=== PATIENT | female | born 1990 | race Caucasian/White ===

== ENCOUNTER 2024-08-07 11:03 | Inpatient (IN) | payer OTHER, SELFPAY ==
--- NOTE | ~2024-08-07 | CT_ITS ---
EXAMINATION: CT abdomen pelvis w con DATE: 08/07/2024 13:48 INDICATION: Left lower quadrant abdominal pain and diarrhea TECHNIQUE: Computed tomography (CT) of the abdomen and pelvis was performed with 100 mL Omnipaque-350 intravenous contrast. Automated exposure control and iterative reconstruction technique were employe d. The dose-length product was 211.48 mGy-cm. COMPARISON: None FINDINGS: Lung bases are clear. Heart size is normal. No pericardial or pleural effusion. Liver, gallbladder, s pleen, pancreas, bilateral adrenal glands and kidneys are normal. Small bowel and appendix are normal . There is prominent focal wall thickening at the proximal sigmoid colon with surrounding inflammator y stranding. There is adjacent prominent enhancement surrounding a few small loculated foci of extral uminal gas which could be related to perforated diverticulitis. The amount of enhancing tissue is gre ater than expected suggesting this could be either acute on chronic or related to malignancy. No absc ess or more remote free intraperitoneal gas. Decompressed bladder is normal. T-shaped IUD in expected position within the anteverted uterus. 2.5 cm left adnexal cyst/follicle. Trace amount of either carolina ctive or physiologic free fluid in the cul-de-sac. Bones are unremarkable. IMPRESSION: 1. Prominent inflammatory stranding surrounding several foci of extraluminal gas with surrounding enh ancing soft tissue associated with a short segment of prominent wall thickening at the proximal sigmo id colon statistically most likely to represent perforated diverticulitis although the amount of surr ounding enhancing soft tissue greater than expected suggests this could be acute on chronic. Differen tial would also include malignancy with secondary perforation. Consider follow-up colonoscopy for fur ther evaluation when clinically improved. 2. T-shaped IUD in expected position within the anteverted uterus. Reviewed, dictated and finalized at location B. IMPRESSION: 1. Prominent inflammatory stranding surrounding several foci of extraluminal ga s with surrounding enhancing soft tissue associated with a short segment of pro minent wall thickening at the proximal sigmoid colon statistically most likely to represent perforated diverticulitis although the amount of surrounding enhan cing soft tissue greater than expected suggests this could be acute on chronic. Differential would also include malignancy with secondary perforation. Conside r follow-up colonoscopy for further evaluation when clinically improved. 2. T-shaped IUD in expected position within the anteverted uterus.
--- NOTE | ~2024-08-07 | CT_ITS ---
EXAMINATION: CT abdomen pelvis w con DATE: 08/11/2024 09:54 INDICATION: Perforated diverticulitis. Inflammatory mass. TECHNIQUE: Computed tomography (CT) of the abdomen and pelvis was performed with 100 mL Omnipaque-350 intravenous contrast. Automated exposure control and iterative reconstruction technique were employe d. The dose-length product was 194.63 mGy-cm. COMPARISON: 08/07/2024 FINDINGS: Lung bases are clear. Heart size is normal. No pericardial or pleural effusion. There are couple calc ified hepatic nodules consistent with old granulomatous disease. Gallbladder, spleen, pancreas, bilat eral adrenal glands and kidneys are normal. No significant change in short segment of wall thickening at the proximal sigmoid colon with inflammatory stranding and enhancing soft tissue surrounding a fe w small foci of extraluminal gas in the surrounding fat. Remainder of the bowels including the append ix are normal. No obstruction. No loculated fluid collections to suggest abscess. Increased size of a previously 2.5 cm 3. T-shaped IUD in expected position., currently 3.8 cm left adnexal cyst/follicle. T-shaped IUD in e xpected position within the anteverted uterus. Bladder and right adnexa are unremarkable. No free int raperitoneal gas or fluid. No pathologically enlarged abdominal or pelvic lymphadenopathy. Bones are unremarkable. IMPRESSION: 1. No significant change in a few foci of extra luminal gas within an inflammatory mass at the periph michael of a short segment of focal wall thickening at the proximal sigmoid colon for which differential remains perforated diverticulitis versus malignancy. No abscess. 2. Interval increase in size of a previous a 2.5 cm, currently 3.8 cm left adnexal cyst/follicle. Reviewed, dictated and finalized at location B. IMPRESSION: 1. No significant change in a few foci of extra luminal gas within an inflammat ory mass at the periphery of a short segment of focal wall thickening at the pr oximal sigmoid colon for which differential remains perforated diverticulitis v ersus malignancy. No abscess. 2. Interval increase in size of a previous a 2.5 cm, currently 3.8 cm left adne xal cyst/follicle.
[2024-08-07 11:12] VITALS: BP 113/67; PULSE 125; RESP 18; TEMP 36.6; O2SAT 98
[2024-08-07 12:24] VITALS: BP 117/74; PULSE 105; RESP 16; O2SAT 99
--- NOTE | 2024-08-07 12:54 | ED.ABDPAIN ---
HPI - Abdominal Pain General Chief Complaint: Abdominal Pain Stated Complaint: abd pain Time Seen by Provider: 08/07/24 12:19 History of Present Illness HPI narrative: 33-year-old female presenting with abdominal pain. States that for the last day and half she has had left lower quadrant pain associated with nausea and diarrhea. No hematochezia or melena. Also has pain with urination and states that it feels like pressure. She was recently hospitalized for diverticulitis. No fevers or vomiting. Reports mild left flank pain. No vaginal bleeding or discharge. No further complaints. Related Data Home Medications Medication Instructions Recorded Confirmed No Home Medications 08/08/24 08/08/24 Allergies Allergy/AdvReac Type Severity Reaction Status Date / Time No Known Allergies Allergy Verified 08/07/24 11:15 Review of Systems Review of Systems: All systems reviewed & are unremarkable except as noted in HPI and below PMFSH Past Medical History Medical History Anxiety Asthma in childhood, resolved Surgical History Surgical History H/O gynecological procedure Mirena IUD insertion Social History Social History Years smoked: 15 Smoking status: Current every day smoker Tobacco type: cigarettes Alcohol intake: former Substance use: current Substance use type: marijuana Do You Feel Safe in your Home?: Yes Lack of Transportation: No Lack of Food: Never True Current Housing: I Have Housing Concerned About Future Housing: No Difficulty Paying Gas/Electric Bills: No Difficulty Paying for Meds: No Currently Unemployed: No Education: High School Diploma/GED Difficulty w/ Childcare or Family Care: No Occupation/Education: occupation Gender identity (if verbalized by the patient): Female Spiritual care concerns: No Exam Narrative: GENERAL: Nontoxic, no acute distress, pleasant cooperative HEAD: Normocephalic, atraumatic. EYES: PERRLA and EOMI. ENT: Mucous membranes moist. NECK: Supple. CHEST: Clear to auscultation. No respiratory distress. HEART: Regular rate and rhythm ABDOMEN: Soft, + left lower quadrant tenderness without guarding or rebound EXTREMITIES: Normal range of motion. SKIN: Warm, dry, no rash. NEURO: No focal deficits. Alert and oriented x3. PSYCH: Normal mood and affect. Course Vital Signs Vital signs: Vital Signs Temperature 97.8 F 08/07/24 11:12 Pulse Rate 125 H 08/07/24 11:12 Respiratory Rate 18 08/07/24 11:12 Blood Pressure 113/67 08/07/24 11:12 Pulse Oximetry 98 08/07/24 11:12 Oxygen Delivery Room Air 08/07/24 11:12 Temperature 98.4 F 08/10/24 06:00 Pulse Rate 77 08/10/24 06:00 Respiratory Rate 20 08/10/24 06:00 Blood Pressure 96/44 L 08/10/24 06:00 Pulse Oximetry 100 08/10/24 06:00 Oxygen Delivery Room Air 08/09/24 20:51 MDM - Abdominal Pain MDM Narrative Medical decision making narrative: 33-year-old female presenting with left lower quadrant pain, nausea. Patient is tachycardic, otherwise vitals are within normal limits. Exam remarkable for the above. Blood work without significant abnormalities. CT abdomen pelvis with perforated diverticulitis. I spoke with surgery who was consult to the patient. They recommend Zosyn which is been ordered. I spoke with Medicine has accepted patient for admission. Patient is agreeable this plan. Differential Diagnosis Differential diagnosis: Likely abdominal pain, acute appendicitis, diverticulitis and pancreatitis Medical Records Attestation: I reviewed the patient's medical records. Lab Data Attestation: I reviewed the patient's lab results. 08/10/24 05:03 08/10/24 05:03 Labs: Lab Results 08/07/24 08/07/24 Range/Units 13:00 13:03 WBC 8.
[2024-08-07 13:05] LABS: BEDSIDEPREGUCG Negative (Negative)
[2024-08-07 13:12] LABS: Basophils Percent Auto 0.2 % (0.2-1.2); Eosinophils Percent Auto 0.1 % (0-4.4); Hematocrit 33.3 % (37.0-47.0); Hemoglobin 10.7 g/dL (12.0-15.0); Immature Granulocyte Absolute 0.04 K/mm3 (0.00-0.031); Immature Granulocyte Percent A 0.5 % (0-0.5); Lymphocytes Absolute Auto 1.21 K/mm3 (0.9-3.2); Lymphocytes Percent Auto 13.7 % (18.3-44.2); Mean Corpuscular HGB Conc 32.1 g/dl (32-36); Mean Corpuscular Hemoglobin 28.8 pg (26-34); Mean Corpuscular Volume 89.5 fl (80-100); Mean Platelet Volume 10.3 fl (7.4-10.4); Monocytes Absolute Auto 0.5 K/mm3 (0.1-0.6); Monocytes Percent Auto 5.9 % (2.6-8.5); Neutrophils Absolute Auto 7.1 K/mm3 (1.3-6.7); Neutrophils Percent Auto 79.6 % (45.5-73.1); Platelet Count Result 307 k/mm3 (150-375); Red Blood Count 3.72 M/mm3 (4.2-5.4); Red Cell Distribution Width 13.4 % (11.5-14.5); White Blood Count 8.9 K/mm3 (4.5-10.0)
[2024-08-07] MEDS: HYDROmorphone HCL INJ (*CRX) 1 MG/ML SYR 0.5 MG IV PUSH ×2 (13:22→15:41)
[2024-08-07] MEDS: SODIUM CHLORIDE 0.9% IV 1,000 ML 999 ML IV CONT (13:22)
[2024-08-07 13:23] LABS: Alanine Aminotransferase 9 U/L (6-35); Albumin Level 4.2 g/dL (3.5-5.1); Alkaline Phosphatase 65 U/L (38-126); Anion Gap 11 mmol/L (4-12); Aspartate Amino Transferase 15 U/L (14-36); Bilirubin,Total 0.5 mg/dL (0.2-1.3); Blood Urea Nitrogen 8 mg/dL (7-17); Calcium 9.1 mg/dL (8.4-10.2); Carbon Dioxide 25 mmol/L (22-30); Chloride 102 mmol/L (98-107); Estimated CRCL calculation 79 ml/min; Estimated Glomerular Filt Rate > 60; Glucose 126 mg/dL (65-110); Lipase 25 U/L (23-300); Potassium 3.8 mmol/L (3.4-5.0); Sodium 138 mmol/L (137-145)
[2024-08-07] MEDS: ONDANSETRON INJ 4 MG/2 ML VIAL IV PUSH ×4 (13:23→22:11)
[2024-08-07 13:26] LABS: Add Urine Microscopic? YES; Appearance Urine Cloudy (Clear); Bacteria Urine 4+ /hpf; Bilirubin Urine Negative (Negative); Blood Urine 1+ (Negative); Calcium Oxalate Crystals Urine Present /hpf; Color Urine Dark Yellow (Yellow); Glucose Urine UA Negative (Negative); Ketones Urine 4+ mg/dL (Negative); Leukocyte Esterase Ur 1+ LEU/UL (Negative); Mucus Urine Present /lpf; Nitrate Urine Positive (Negative); Non Pathogenic Casts 0-2; Protein Urine 1+ mg/dL (Negative); Squamous Epithelial Cell Urine Many /hpf (Few); WBC Urine 21-50 /hpf (0-3); pH Urine 5.5 (5.0-9.0)
--- NOTE | 2024-08-07 16:02 | PM.CNGS ---
Assessment and Plan Assessment and plan (1) Diverticulitis of intestine with perforation: Qualifiers: Diverticulitis bleeding: without bleeding Diverticulitis site: large intestine Qualified Code(s): K57.20 - Diverticulitis of large intestine with perforation and abscess without bleeding Code(s): K57.80 - Diverticulitis of intestine, part unspecified, with perforation and abscess without bleeding Status: Acute Assessment and Plan: CT scan shows evidence of sigmoid diverticulitis with small amount of extraluminal gas near the sigmoid colon, consistent with microperforation. She has been dealing with frequent LLQ abdominal pain for the past few month and this is apparently her third hospitalization for diverticulitis in the past 3 months. Today, her exam is consistent with diverticulitis. She is tender in the LLQ with no diffuse peritoneal signs. Her WBC count is normal. We would recommend to continue with conservative management, including IV antibiotics, bowel rest, IV fluids, and analgesics as needed. We will continue to monitor with serial abdominal exams. Discussed with the patient that typically this improves with conservative treatment, but if she is not improving as expected this may require surgical intervention. (2) UTI (urinary tract infection): Qualifiers: Hematuria presence: without hematuria Urinary tract infection type: acute cystitis Qualified Code(s): N30.00 - Acute cystitis without hematuria Code(s): N39.0 - Urinary tract infection, site not specified Status: Acute Assessment and Plan: Continue IV antibiotics. Urine culture pending. Plan I have discussed the patient's case and plan of care with Dr. Lang. Thank you for allowing us to see the patient in consultation and we will continue to follow along with you. History of Present Illness Consult details Consult date: 08/07/24 Reason for consult: other (Perforated diverticulitis) Requesting physician: Mariama Arias MD Narrative: This is a 33-year-old woman who presented to the ED today with complaints of LLQ abdominal pain. She reports having diverticulitis twice in the past 3 months requiring a hospitalization at [facility]. She denies having an abscess or requiring a drainage. She has never had a colonoscopy. She improved with antibiotics and would be discharged home. She reports her abdominal pain never resolved, but has been constant for the past 3 months. She was most recently discharged about 4 weeks ago from [facility] and continued having abdominal pain. She has associated nausea but no recent vomiting. She had vomiting with previous episodes. Her abdominal pain has progressed over the past few days and today she wasn't able to get out of bed due to the pain, so she came into the ED. She is afebrile in the ER and heart rate is 125. Labs showed a WBC count of 8,000. UA grossly abnormal with urine culture pending. Patient also complaining of dysuria. CT scan of the abdomen and pelvis showed findings consistent with perforated sigmoid diverticulitis with foci of extraluminal gas near the sigmoid colon, possibly acute versus chronic diverticulitis versus malignancy with perforation. Our service was consulted by the ED provider and she is now seen in the ED. No previous abdominal surgeries. She reports recently having diarrhea with no blood in her stool. She had a bowel movement today. No other complaints at this time. Denies any other medical problems. Review of Systems Review of Systems: All systems reviewed & are unremarkable except as noted in HPI and below PMFSH Surgical History Surgical History H/O gynecological procedure Mirena IUD insertion Social History Social History Years smoked: 15 Smoking status: Current every day smoker Tobacco type: cigarettes Alcohol intake: former Substance
[2024-08-07 16:40] VITALS: BP 131/72; PULSE 90; RESP 16; O2SAT 100
--- NOTE | 2024-08-07 16:50 | PM.IMHP ---
H&P: HPI History of Present Illness Date/Time: 08/07/24 16:50 Chief Complaint: Abdominal Pain, Bladder Pressure Narrative: 33 y/o F presents here with abdominal pain and bladder pressure with PMH of diverticulitis and childhood asthma. The patient presents here from home for further evaluation of left lower quadrant pain, diarrhea, and bladder pressure. She reports initially experiencing LLQ pain which started on Sunday (08/04). She describes the left lower quadrant pain as sharp/burning, radiating to left flank, constant, aggravated by movement, and no alleviating factors. Abdominal pain is accompanied by nausea without vomiting and diarrhea. Denies hematochezia, melena, or previous abdominal surgeries. Patient has history of diverticulitis with most recent occurrence 1-2 months requiring hospitalization at [facility]. Concurrently experiencing bladder pressure which has been ongoing since her admission 1-2 months ago. No dysuria, hematuria, fever, chills, body aches. Denies abnormal vaginal discharge. Initial VS at presentation: 97.8? F, HR 125, RR 18, 113/67, and 98% on RA. ED workup showed: No leukocytosis, hemoglobin 10.7 (previously 8.9 and 10.4 in 2018), no significant electrolyte derangements, creatinine 0.7 and GFR >60, glucose 126, and UA consistent with UTI. CT of the abdomen/pelvis showed perforated diverticulitis (may be acute on chronic) and an IUD in expected position. Negative test. Review of Systems Review of Systems: All systems reviewed & are unremarkable except as noted in HPI and below PMFSH Past Medical History Medical History Anxiety Asthma in childhood, resolved Surgical History Surgical History H/O gynecological procedure Mirena IUD insertion Social History Social History Years smoked: 15 Smoking status: Current every day smoker Tobacco type: cigarettes Alcohol intake: former Substance use: current Substance use type: marijuana Do You Feel Safe in your Home?: Yes Lack of Transportation: No Lack of Food: Never True Current Housing: I Have Housing Concerned About Future Housing: No Difficulty Paying Gas/Electric Bills: No Difficulty Paying for Meds: No Currently Unemployed: No Education: High School Diploma/GED Difficulty w/ Childcare or Family Care: No Occupation/Education: occupation Gender identity (if verbalized by the patient): Female Spiritual care concerns: No Meds Home Medications and Allergies Allergies Allergy/AdvReac Type Severity Reaction Status Date / Time No Known Allergies Allergy Verified 08/07/24 11:15 Vital Signs Vital Signs - 24 hr 08/07/24 11:12 08/07/24 12:24 08/07/24 16:40 Temperature 97.8 F Pulse Rate 125 H 105 H 90 Respiratory Rate 18 16 16 Blood Pressure 113/67 117/74 131/72 Pulse Oximetry 98 99 100 Oxygen Delivery Room Air Exam Narrative: LLQ pain, abdomen rounded. mildly ill appearing. Const: General: comfortable and no acute distress Other: , female, mildly ill-appearing HENMT: Face/Nose/Sinus: Normal nares present Mouth: Yes moist mucous membranes Eyes: General: appearance normal, both eyes and all related structures Sclera: sclerae normal Pupils: Equal, round and reactive pupils present EOM: EOMs intact bilaterally Resp: Effort & Inspection: normal respiratory effort Auscultation: clear to auscultation bilaterally Cardio: Rate: regular rate Rhythm: regular rhythm Other: S1-S2 present without murmur, rub, ectopy GI: Other: Abdomen rounded, soft. Exquisite tenderness to left lower quadrant. Skin: General skin exam: normal color and no rashes or lesions noted Wounds: no wounds Neuro: General: gait normal Speech: normal speech Motor exam (neuro): 5/5 motor streng
[2024-08-07] MEDS: PIPERACILLIN/TAZ 4.5G/NS 100ML 4.5 GM/100 ML BAG IVPB (16:53)
[2024-08-07 18:00] VITALS: BP 105/68; PULSE 82; RESP 16; TEMP 37; O2SAT 100
[2024-08-07 18:10] VITALS: BP 108/78; PULSE 71; RESP 14; TEMP 36.8; O2SAT 97
--- NOTE | 2024-08-07 18:19 | ADMGEN ---
This patient, Libby Maldonado, was admitted to Medical Room 253-01. Patient/family oriented to hospital policies and general routines including ID bracelet, bed and alarms, visiting hours, pain management, procedures, bathroom and other care routines, personal items, smoking policy, room service/diet, and visiting hours. Information on how to activate the Rapid Response Team has been discussed. Patient/Family are encouraged to report perceived risks to care and to ask questions if they do not understand what they are told or what they should do.
[2024-08-07] MEDS: LACTATED RINGERS 1,000 ML 100 ML IV CONT (18:20)
[2024-08-07] MEDS: MORPHINE SULFATE (*CRX) 4 MG/ML INJ 2 MG IV PUSH ×2 (18:28→21:10)
[2024-08-07 21:10] VITALS: BMI 21.3
[2024-08-07 21:11] VITALS: BP 100/58; PULSE 76; RESP 18; TEMP 36.6; O2SAT 99
[2024-08-07] MEDS: PIPERACILLN/TAZ 3.375GM/NS50ML 3.375 GM/50 ML BAG IVPB (23:42)
[2024-08-08] MEDS: ONDANSETRON INJ 4 MG/2 ML VIAL IV PUSH ×2 (03:01→08:59)
[2024-08-08] MEDS: HYDROmorphone HCL INJ (*CRX) 1 MG/ML SYR IV PUSH (03:01)
[2024-08-08 05:07] VITALS: BP 100/57; PULSE 63; RESP 18; TEMP 36.5; O2SAT 99
[2024-08-08] MEDS: PIPERACILLN/TAZ 3.375GM/NS50ML 3.375 GM/50 ML BAG IVPB ×4 (05:25→23:24)
[2024-08-08] MEDS: LACTATED RINGERS 1,000 ML 100 ML IV CONT ×2 (05:26→20:28)
[2024-08-08 06:24] LABS: Basophils Percent Auto 0.4 % (0.2-1.2); Eosinophils Absolute Auto 0.1 K/mm3 (0-0.3); Eosinophils Percent Auto 0.9 % (0-4.4); Hematocrit 29.3 % (37.0-47.0); Hemoglobin 9.2 g/dL (12.0-15.0); Immature Granulocyte Absolute 0.02 K/mm3 (0.00-0.031); Immature Granulocyte Percent A 0.4 % (0-0.5); Lymphocytes Absolute Auto 1.32 K/mm3 (0.9-3.2); Lymphocytes Percent Auto 23.5 % (18.3-44.2); Mean Corpuscular HGB Conc 31.4 g/dl (32-36); Mean Corpuscular Hemoglobin 28.6 pg (26-34); Mean Platelet Volume 10.6 fl (7.4-10.4); Monocytes Absolute Auto 0.4 K/mm3 (0.1-0.6); Monocytes Percent Auto 7.3 % (2.6-8.5); Neutrophils Absolute Auto 3.8 K/mm3 (1.3-6.7); Neutrophils Percent Auto 67.5 % (45.5-73.1); Platelet Count Result 236 k/mm3 (150-375); Red Blood Count 3.22 M/mm3 (4.2-5.4); Red Cell Distribution Width 13.3 % (11.5-14.5); White Blood Count 5.6 K/mm3 (4.5-10.0)
[2024-08-08 06:43] LABS: Anion Gap 10 mmol/L (4-12); Blood Urea Nitrogen 5 mg/dL (7-17); Calcium 8.3 mg/dL (8.4-10.2); Carbon Dioxide 24 mmol/L (22-30); Chloride 103 mmol/L (98-107); Estimated CRCL calculation 70 ml/min; Estimated Glomerular Filt Rate > 60; Glucose 95 mg/dL (65-110); Potassium 3.6 mmol/L (3.4-5.0); Sodium 137 mmol/L (137-145)
--- NOTE | 2024-08-08 07:44 | PM.PNGS ---
Progress Note: A&P Assessment and Plan (1) Diverticulitis of intestine with perforation: Qualifiers: Diverticulitis bleeding: without bleeding Diverticulitis site: large intestine Qualified Code(s): K57.20 - Diverticulitis of large intestine with perforation and abscess without bleeding Code(s): K57.80 - Diverticulitis of intestine, part unspecified, with perforation and abscess without bleeding Status: Acute Assessment and Plan: Persistent pain and tender inflammatory mass left lower quadrant. Continue bowel rest and IV Zosyn antibiotics with p.r.n. analgesics. Pain is slightly better today. Still very tender. White count remains normal. (2) UTI (urinary tract infection): Qualifiers: Hematuria presence: without hematuria Urinary tract infection type: acute cystitis Qualified Code(s): N30.00 - Acute cystitis without hematuria Code(s): N39.0 - Urinary tract infection, site not specified Status: Acute Assessment and Plan: Pending culture but Zosyn should treat this as well. Subjective Subjective Date/Time Seen: 08/08/24 07:44 Patient reports: still having pain (Sleeping soundly when I came in the room but did report persistent abdominal pain through the night), nausea and afebrile Review of Systems Review of Systems: All systems reviewed & are unremarkable except as noted in HPI and below (HPI) Exam Const: General: comfortable and no acute distress Orientation/consciousness: patient oriented x3 GI: Inspection: normal to inspection and non-distended GI Palp: Yes Soft to palpation, Yes Tenderness to palpation present (GI) (Mostly left lower quadrant, very tender there), Yes Guarding due to palpation present (GI) (Left lower quadrant), Yes Palpable mass present (Mass or fullness in the left lower quadrant) and No Rebound tenderness present Auscultation: Hypoactive bowel sounds present Neuro: General: patient oriented x3 and no focal motor deficits Extrem: General: no calf tenderness and no edema Psych: Affect: normal affect Insight: Good insight present (Psych) Judgement: Good judgement present (Psych) Objective Data Vital Signs Vital Signs: Vital Signs - 24 hr 08/07/24 11:12 08/07/24 12:24 08/07/24 16:40 Temperature 36.6 C Pulse Rate 125 H 105 H 90 Respiratory Rate 18 16 16 Blood Pressure 113/67 117/74 131/72 Pulse Oximetry 98 99 100 Oxygen Delivery Room Air 08/07/24 18:00 08/07/24 18:10 08/07/24 21:11 Temperature 37.0 C 36.8 C 36.6 C Pulse Rate 82 71 76 Respiratory Rate 16 14 18 Blood Pressure 105/68 108/78 100/58 L Pulse Oximetry 100 97 99 Oxygen Delivery 08/08/24 05:07 Temperature 36.5 C Pulse Rate 63 Respiratory Rate 18 Blood Pressure 100/57 L Pulse Oximetry 99 Oxygen Delivery Intake/Output Intake/Output: Intake & Output 08/05/24 08/06/24 08/07/24 08/08/24 23:59 23:59 23:59 23:59 Intake Total 1100 1100 Output Total 300 Balance 800 1100 Meds/Results Medications: Active Medications Generic Name Dose Route Start Last Admin Trade Name Freq PRN Reason Stop Dose Admin Enoxaparin Sodium 40 mg 08/08/24 09:00 Enoxaparin 40 Mg/0.4 Ml Syringe SUB-Q DAILY FIDELIA Hydromorphone HCl 1 mg 08/08/24 02:49 08/08/24 03:01 Hydromorphone Hcl Inj (*Crx) 1 Mg/Ml Syr IV PUSH 1 mg Q3H PRN Administration Pain Rated 7-10 Piperacillin/Tazobactam/Dextrose 3.375 gm in 50 mls @ 100 mls/hr 08/08/24 00:00 08/08/24 05:55 Zosyn 3.375 Gm/Ns 50 Ml IVPB Infused Q6HR FIDELIA Infusion Lactated Ringer's 1,000 mls @ 100 mls/hr 08/07/24 18:05 08/08/24 05:26 Lr - Lactated Ringers Iv IV CONT 100 mls/hr .Q10H FIDELIA Administration Ibuprofen 800 mg in 200 mls @ 400 mls/hr 08/07/24 18:01 Caldolor 800 Mg/200 Ml IVPB Q6H PRN Breakthrough Pain Rated 1-3 or NPO Ondansetron HCl 4 mg 08/07/24 18:01 08/08/24 03:01 Ondansetron Inj 4 Mg/2 Ml Vial IV PUSH 4 mg Q4H PRN Admin
--- NOTE | 2024-08-08 08:49 | PM.IMPN ---
Progress Note: A&P Assessment and Plan (1) Diverticulitis of intestine with perforation: Qualifiers: Diverticulitis bleeding: without bleeding Diverticulitis site: large intestine Qualified Code(s): K57.20 - Diverticulitis of large intestine with perforation and abscess without bleeding Code(s): K57.80 - Diverticulitis of intestine, part unspecified, with perforation and abscess without bleeding Status: Acute Assessment and Plan: 08/08/24: CT of the abdomen/pelvis show prominent inflammatory stranding surrounding several foci of extraluminal gas with surrounding enhancing soft tissue associated with a short segment of prominent wall thickening at the proximal sigmoid colon representing perforated diverticulitis Patient given dose of Rocephin, Flagyl, and Zosyn while in the ER continue Zosyn General surgery following Continue pain and nausea control Blood cultures obtained and are pending (2) UTI (urinary tract infection): Qualifiers: Hematuria presence: without hematuria Urinary tract infection type: acute cystitis Qualified Code(s): N30.00 - Acute cystitis without hematuria Code(s): N39.0 - Urinary tract infection, site not specified Status: Acute Assessment and Plan: 08/08/24: UA shown cloudy appearance, 1+ urine protein, 4+ urine ketones, 1+ urine blood, positive nitrates, 1+ leukocytes, 6-10 urine RBCs, 21-50 urine WBCs, 4+ urine bacteria Currently on Zosyn Urine culture pending Time Spent With Patient Time with patient: Greater than 35 minutes Subjective Date/time seen: 08/08/24 08:49 Interval history: Interval history: This is a 33 year old female who presented to the hospital on 08/07/24 with complaint of abdominal pain in the left lower quadrant with associated nausea and vomiting. Work up in the hospital included a Ct of the abdomen/pelvis which shown prominent inflammatory stranding surrounding several foci of extraluminal gas with surrounding enhancing soft tissue associated with a short segment of prominent wall thickening at the proximal sigmoid colon representing perforated diverticulitis. Initial labs shown Hgb 10.7, otherwise unremarkable. UA was obtained and shown 1+ urine protein, 4+ urine ketones, 1+ urine blood, positive nitrate, 1+ leukocyte, 6-10 urine RBC, 21-50 urine WBC, many urine squamous cells, 4+ bacteria. Blood and urine cultures were obtained and are pending. Patient was given a dose of Flagyl, Rocephin, Zosyn, 1L NS, pain and nausea medication while in the ER. General surgery was consulted. Subjective: Labs and Imaging reviewed. Patient reports 6/10 left lower quadrant abdominal pain. Patient denies any fever, chills, nausea, vomiting, diarrhea, chest pain, shortness a breath. Review of Systems Review of Systems: All systems reviewed & are unremarkable except as noted in HPI and below Constitutional: Constitutional: Reports as per HPI and Reports no additional constitutional complaints Eyes: Eyes: Reports as per HPI and Reports no additional eye complaints ENT: Reports system reviewed and no additional complaints, except as documented and Reports as per HPI Cardiovascular: Cardiovascular: Reports as per HPI and Reports no additional cardiovascular complaints Respiratory: Respiratory: Reports as per HPI and Reports no additional respiratory complaints Gastrointestinal: Gastrointestinal: Reports as per HPI and Reports no additional gastrointestinal complaints Genitourinary: Genitourinary: Reports no additional female genitourinary complaints and Reports as per HPI Musculoskeletal: Musculoskeletal: Reports no additional musculoskeletal complaints and Reports as per HPI Integumentary/Breasts: Skin/Breast: Reports system reviewed and no additional complaints, except as docu and Reports as per HPI Neurologic: Reports system reviewed and no additional complaints, except as documented and Reports as per HPI Psychiatric: Psychiatric:
[2024-08-08] MEDS: ENOXAPARIN 40 MG/0.4 ML SYRINGE SUB-Q (08:52)
[2024-08-08] MEDS: IBUPROFEN IV 800 MG/200 ML 800 MG/200 ML BAG 400 MG IVPB (08:55)
[2024-08-08 13:57] VITALS: BP 93/62; PULSE 77; RESP 12; O2SAT 100
[2024-08-08 17:20] VITALS: BP 99/50
[2024-08-08 19:17] LABS: Carcinoembryonic Antigen 5.5 ng/mL (0.0-3.0)
[2024-08-08 20:18] VITALS: BP 100/60; PULSE 60; RESP 18; TEMP 36.5; O2SAT 100
[2024-08-09 04:17] VITALS: BP 100/52; PULSE 77; RESP 18; TEMP 36.5; O2SAT 96
[2024-08-09] MEDS: PIPERACILLN/TAZ 3.375GM/NS50ML 3.375 GM/50 ML BAG IVPB ×3 (05:31→17:54)
[2024-08-09] MEDS: ONDANSETRON INJ 4 MG/2 ML VIAL IV PUSH ×2 (05:31→20:51)
[2024-08-09 05:32] LABS: Basophils Percent Auto 0.6 % (0.2-1.2); Eosinophils Percent Auto 0.2 % (0-4.4); Hematocrit 30.7 % (37.0-47.0); Hemoglobin 9.6 g/dL (12.0-15.0); Immature Granulocyte Absolute 0.02 K/mm3 (0.00-0.031); Immature Granulocyte Percent A 0.4 % (0-0.5); Lymphocytes Absolute Auto 0.87 K/mm3 (0.9-3.2); Lymphocytes Percent Auto 18.2 % (18.3-44.2); Mean Corpuscular HGB Conc 31.3 g/dl (32-36); Mean Corpuscular Hemoglobin 28.9 pg (26-34); Mean Corpuscular Volume 92.5 fl (80-100); Mean Platelet Volume 10.4 fl (7.4-10.4); Monocytes Absolute Auto 0.2 K/mm3 (0.1-0.6); Monocytes Percent Auto 4.4 % (2.6-8.5); Neutrophils Absolute Auto 3.7 K/mm3 (1.3-6.7); Neutrophils Percent Auto 76.2 % (45.5-73.1); Platelet Count Result 268 k/mm3 (150-375); Red Blood Count 3.32 M/mm3 (4.2-5.4); Red Cell Distribution Width 13.2 % (11.5-14.5); White Blood Count 4.8 K/mm3 (4.5-10.0)
[2024-08-09 05:52] LABS: Alanine Aminotransferase 6 U/L (6-35); Albumin Level 3.6 g/dL (3.5-5.1); Alkaline Phosphatase 60 U/L (38-126); Anion Gap 18 mmol/L (4-12); Aspartate Amino Transferase 16 U/L (14-36); Bilirubin,Total 0.7 mg/dL (0.2-1.3); Blood Urea Nitrogen 5 mg/dL (7-17); Calcium 8.5 mg/dL (8.4-10.2); Carbon Dioxide 13 mmol/L (22-30); Chloride 103 mmol/L (98-107); Estimated CRCL calculation 79 ml/min; Estimated Glomerular Filt Rate > 60; Glucose 62 mg/dL (65-110); Potassium 4.2 mmol/L (3.4-5.0); Sodium 134 mmol/L (137-145)
[2024-08-09] MEDS: LACTATED RINGERS 1,000 ML 100 ML IV CONT (06:06)
--- NOTE | 2024-08-09 07:36 | PM.IMPN ---
Progress Note: A&P Assessment and Plan (1) Diverticulitis of intestine with perforation: Qualifiers: Diverticulitis bleeding: without bleeding Diverticulitis site: large intestine Qualified Code(s): K57.20 - Diverticulitis of large intestine with perforation and abscess without bleeding Code(s): K57.80 - Diverticulitis of intestine, part unspecified, with perforation and abscess without bleeding Status: Acute Assessment and Plan: 08/08/24: CT of the abdomen/pelvis show prominent inflammatory stranding surrounding several foci of extraluminal gas with surrounding enhancing soft tissue associated with a short segment of prominent wall thickening at the proximal sigmoid colon representing perforated diverticulitis Patient given dose of Rocephin, Flagyl, and Zosyn while in the ER continue Zosyn General surgery following Continue pain and nausea control Blood cultures obtained and are pending 08/09/24: Blood cultures showing no growth to date on preliminary read Continue Zosyn per general surgery team Continue pain control General surgery following (2) UTI (urinary tract infection): Qualifiers: Hematuria presence: without hematuria Urinary tract infection type: acute cystitis Qualified Code(s): N30.00 - Acute cystitis without hematuria Code(s): N39.0 - Urinary tract infection, site not specified Status: Acute Assessment and Plan: 08/08/24: UA shown cloudy appearance, 1+ urine protein, 4+ urine ketones, 1+ urine blood, positive nitrates, 1+ leukocytes, 6-10 urine RBCs, 21-50 urine WBCs, 4+ urine bacteria Currently on Zosyn Urine culture pending 08/09/24: Urine culture showing Ecoli on preliminary read Continue Zosyn for now Time Spent With Patient Time with patient: 15 - 25 minutes Subjective Date/time seen: 08/09/24 07:36 Interval history: Interval history: This is a 33 year old female who presented to the hospital on 08/07/24 with complaint of abdominal pain in the left lower quadrant with associated nausea and vomiting. Work up in the hospital included a Ct of the abdomen/pelvis which shown prominent inflammatory stranding surrounding several foci of extraluminal gas with surrounding enhancing soft tissue associated with a short segment of prominent wall thickening at the proximal sigmoid colon representing perforated diverticulitis. Initial labs shown Hgb 10.7, otherwise unremarkable. UA was obtained and shown 1+ urine protein, 4+ urine ketones, 1+ urine blood, positive nitrate, 1+ leukocyte, 6-10 urine RBC, 21-50 urine WBC, many urine squamous cells, 4+ bacteria. Blood and urine cultures were obtained and are pending. Patient was given a dose of Flagyl, Rocephin, Zosyn, 1L NS, pain and nausea medication while in the ER. General surgery was consulted. 08/09/24 urine culture showing Ecoli on preliminary read, blood cultures showing no growth to date on preliminary read. Subjective: Labs and Imaging reviewed.Patient reports pain as 6/10 and constant. She did have a bout of nausea and vomiting overnight but subsided with a dose of Zofran. Review of Systems Review of Systems: All systems reviewed & are unremarkable except as noted in HPI and below Constitutional: Constitutional: Reports as per HPI and Reports no additional constitutional complaints Eyes: Eyes: Reports as per HPI and Reports no additional eye complaints ENT: Reports system reviewed and no additional complaints, except as documented and Reports as per HPI Cardiovascular: Cardiovascular: Reports as per HPI and Reports no additional cardiovascular complaints Respiratory: Respiratory: Reports as per HPI and Reports no additional respiratory complaints Gastrointestinal: Gastrointestinal: Reports as per HPI and Reports no additional gastrointestinal complaints Genitourinary: Genitourinary: Reports no additional female genitourinary complaints and Reports as per HPI Musculoskeletal: Musculoskelet
[2024-08-09] MEDS: ENOXAPARIN 40 MG/0.4 ML SYRINGE SUB-Q (09:21)
[2024-08-09] MEDS: IBUPROFEN IV 800 MG/200 ML 800 MG/200 ML BAG 400 MG IVPB (09:27)
--- NOTE | 2024-08-09 11:33 | PM.PNGS ---
Progress Note: A&P Assessment and Plan (1) Diverticulitis of intestine with perforation: Qualifiers: Diverticulitis bleeding: without bleeding Diverticulitis site: large intestine Qualified Code(s): K57.20 - Diverticulitis of large intestine with perforation and abscess without bleeding Code(s): K57.80 - Diverticulitis of intestine, part unspecified, with perforation and abscess without bleeding Status: Acute Assessment and Plan: Will start clear liquids today. Continue Zosyn. (2) UTI (urinary tract infection): Qualifiers: Hematuria presence: without hematuria Urinary tract infection type: acute cystitis Qualified Code(s): N30.00 - Acute cystitis without hematuria Code(s): N39.0 - Urinary tract infection, site not specified Status: Acute Subjective Subjective Date/Time Seen: 08/09/24 11:33 Interval history: Pain improved. Hungry. Still a little nauseated. Exam GI: Inspection: non-distended GI Palp: Yes Soft to palpation, Yes Tenderness to palpation present (GI) (mild LLQ) and No Guarding due to palpation present (GI) Auscultation: normal bowel sounds Objective Data Vital Signs Vital Signs: Vital Signs - 24 hr 08/08/24 13:57 08/08/24 17:20 08/08/24 20:18 Temperature 36.5 C Pulse Rate 77 60 Respiratory Rate 12 18 Blood Pressure 93/62 L 99/50 L 100/60 Pulse Oximetry 100 100 Oxygen Delivery 08/08/24 20:20 08/09/24 04:17 08/09/24 09:19 Temperature 36.5 C Pulse Rate 77 Respiratory Rate 18 Blood Pressure 100/52 L Pulse Oximetry 96 Oxygen Delivery Room Air Room Air Intake/Output Intake/Output: Intake & Output 08/06/24 08/07/24 08/08/24 08/09/24 23:59 23:59 23:59 23:59 Intake Total 1100 2450.0 1250 Output Total 300 Balance 800 2450.0 1250 Meds/Results Medications: Active Medications Generic Name Dose Route Start Last Admin Trade Name Freq PRN Reason Stop Dose Admin Enoxaparin Sodium 40 mg 08/08/24 09:00 08/09/24 09:21 Enoxaparin 40 Mg/0.4 Ml Syringe SUB-Q 40 mg DAILY FIDELIA Administration Hydromorphone HCl 1 mg 08/08/24 02:49 08/08/24 03:01 Hydromorphone Hcl Inj (*Crx) 1 Mg/Ml Syr IV PUSH 1 mg Q3H PRN Administration Pain Rated 7-10 Piperacillin/Tazobactam/Dextrose 3.375 gm in 50 mls @ 100 mls/hr 08/08/24 00:00 08/09/24 06:01 Zosyn 3.375 Gm/Ns 50 Ml IVPB Infused Q6HR FIDELIA Infusion Lactated Ringer's 1,000 mls @ 100 mls/hr 08/07/24 18:05 08/09/24 06:06 Lr - Lactated Ringers Iv IV CONT 100 mls/hr .Q10H FIDELIA Administration Ibuprofen 800 mg in 200 mls @ 400 mls/hr 08/07/24 18:01 08/09/24 09:57 Caldolor 800 Mg/200 Ml IVPB Infused Q6H PRN Infusion Breakthrough Pain Rated 1-3 or NPO Ondansetron HCl 4 mg 08/07/24 18:01 08/09/24 05:31 Ondansetron Inj 4 Mg/2 Ml Vial IV PUSH 4 mg Q4H PRN Administration Nausea And Vomiting Radiology Results: ITS Impressions Abdomen/Pelvis CT 08/07/24 14:12 IMPRESSION: 1. Prominent inflammatory stranding surrounding several foci of extraluminal gas with surrounding enhancing soft tissue associated with a short segment of prominent wall thickening at the proximal sigmoid colon statistically most likely to represent perforated diverticulitis although the amount of surrounding enhancing soft tissue greater than expected suggests this could be acute on chronic. Differential would also include malignancy with secondary perforation. Consider follow-up colonoscopy for further evaluation when clinically improved. 2. T-shaped IUD in expected position within the anteverted uterus. Labs Labs: Laboratory Results - last 24 hr 08/08/24 08/09/24 18:01 05:25 WBC 4.8 RBC 3.32 L Hgb 9.6 L Hct 30.7 L MCV 92.5 MCH 28.9 MCHC 31.3 L RDW 13.2 Plt Count 268 MPV 10.4 Immature Gran % (Auto) 0.4 Neut % (Auto) 76.2 H Lymph % (Auto) 18.2 L [place] % (Auto) 4.4 Eos % (Auto) 0.2
[2024-08-09 14:00] VITALS: BP 100/53; PULSE 65; RESP 16; TEMP 36.7; O2SAT 100
[2024-08-09 20:51] VITALS: RESP 18; O2SAT 100
[2024-08-09 20:54] VITALS: BP 101/49; PULSE 62; RESP 20; TEMP 36.9; O2SAT 100
[2024-08-09 22:19] VITALS: RESP 18
[2024-08-10] MEDS: PIPERACILLN/TAZ 3.375GM/NS50ML 3.375 GM/50 ML BAG IVPB ×5 (00:17→23:24)
[2024-08-10 05:25] LABS: Basophils Percent Auto 0.8 % (0.2-1.2); Eosinophils Absolute Auto 0.1 K/mm3 (0-0.3); Eosinophils Percent Auto 1.3 % (0-4.4); Hematocrit 30.9 % (37.0-47.0); Hemoglobin 9.8 g/dL (12.0-15.0); Immature Granulocyte Absolute 0.02 K/mm3 (0.00-0.031); Immature Granulocyte Percent A 0.4 % (0-0.5); Lymphocytes Absolute Auto 1.32 K/mm3 (0.9-3.2); Lymphocytes Percent Auto 27.6 % (18.3-44.2); Mean Corpuscular HGB Conc 31.7 g/dl (32-36); Mean Corpuscular Hemoglobin 29.2 pg (26-34); Mean Platelet Volume 10.2 fl (7.4-10.4); Monocytes Absolute Auto 0.3 K/mm3 (0.1-0.6); Monocytes Percent Auto 6.7 % (2.6-8.5); Neutrophils Percent Auto 63.2 % (45.5-73.1); Platelet Count Result 269 k/mm3 (150-375); Red Blood Count 3.36 M/mm3 (4.2-5.4); Red Cell Distribution Width 13.2 % (11.5-14.5); White Blood Count 4.8 K/mm3 (4.5-10.0)
[2024-08-10 05:36] LABS: Alanine Aminotransferase 7 U/L (6-35); Albumin Level 3.6 g/dL (3.5-5.1); Alkaline Phosphatase 53 U/L (38-126); Anion Gap 11 mmol/L (4-12); Aspartate Amino Transferase 14 U/L (14-36); Bilirubin,Total 0.5 mg/dL (0.2-1.3); Blood Urea Nitrogen 3 mg/dL (7-17); Calcium 8.5 mg/dL (8.4-10.2); Carbon Dioxide 17 mmol/L (22-30); Chloride 107 mmol/L (98-107); Estimated CRCL calculation 79 ml/min; Estimated Glomerular Filt Rate > 60; Glucose 128 mg/dL (65-110); Potassium 3.5 mmol/L (3.4-5.0); Sodium 135 mmol/L (137-145)
[2024-08-10 06:00] VITALS: BP 96/44; PULSE 77; RESP 20; TEMP 36.9; O2SAT 100
--- NOTE | 2024-08-10 09:12 | PM.IMPN ---
Progress Note: A&P Assessment and Plan (1) Diverticulitis of intestine with perforation: Qualifiers: Diverticulitis bleeding: without bleeding Diverticulitis site: large intestine Qualified Code(s): K57.20 - Diverticulitis of large intestine with perforation and abscess without bleeding Code(s): K57.80 - Diverticulitis of intestine, part unspecified, with perforation and abscess without bleeding Status: Acute Assessment and Plan: Has had 3 hospitalizations for diverticulitis within the past month CT of abdomen/pelvis on presentation shows sigmoid diverticulitis with small amount of extraluminal gas consistent with microperforation Continues to complain of LLQ tenderness Currently on clear liquid diet but reports onset of diarrhea since starting, having trouble tolerating Appreciate general surgery consultation and recommendations Continue IV Zosyn Continue supportive care, analgesics, antiemetics. Consider restarting IV fluids if still having difficulty tolerating liquids today WBC is within normal limits. Blood cultures negative to date (2) UTI (urinary tract infection): Qualifiers: Hematuria presence: without hematuria Urinary tract infection type: acute cystitis Qualified Code(s): N30.00 - Acute cystitis without hematuria Code(s): N39.0 - Urinary tract infection, site not specified Status: Acute Assessment and Plan: Urine culture with growth of E coli Currently on Zosyn as above which is appropriate based on sensitivities Subjective Date/time seen: 08/10/24 09:12 Interval history: Libby is feeling fair today. Reports that yesterday her abdominal pain was improved but overnight she developed stabbing pain in her left lower quadrant around 2:00 a.m. that she rates about 7/10. Also reports that since starting her clear liquid diet she has developed diarrhea with yellowish stool. Last episode was around 5:00 a.m.. Endorses nausea but no vomiting. She is keeping down water. Denies fever or chills. Denies chest pain, shortness of breath, dizziness, lightheadedness. Review of Systems Review of Systems: All systems reviewed & are unremarkable except as noted in HPI and below Exam Narrative: General: Thin, well-appearing 33 year-old female, sitting up in bed, comfortable, NARD Neuro: awake, alert and oriented x4, speech clear, no focal neuro deficits noted HEENMT: normocephalic, atraumatic, EOMI, sclerae anicteric Respiratory: clear to auscultation bilaterally, nonlabored breathing Cardio: regular rate, regular rhythm with S1-S2 Abdomen: nondistended, normoactive bowel sounds, soft, minimally tender to palpation of LLQ, no rigidity or guarding Extremities: no edema, erythema, or tenderness to palpation Skin: no rashes or lesions, warm and dry Psych: appropriate mood and affect, judgment and insight intact Objective Data Vital Signs Vital Signs: Vital Signs - 24 hr 08/09/24 09:19 08/09/24 14:00 08/09/24 20:54 Temperature 98.1 F 98.4 F Pulse Rate 65 62 Respiratory Rate 16 20 Blood Pressure 100/53 L 101/49 L Pulse Oximetry 100 100 Oxygen Delivery Room Air 08/09/24 20:51 08/09/24 22:19 08/10/24 06:00 Temperature 98.4 F Pulse Rate 77 Respiratory Rate 18 18 20 Blood Pressure 96/44 L Pulse Oximetry 100 100 Oxygen Delivery Room Air Intake/Output Intake/Output: Intake & Output 08/07/24 08/08/24 08/09/24 08/10/24 23:59 23:59 23:59 23:59 Intake Total 1100 2450.0 2370 250 Output Total 300 Balance 800 2450.0 2370 250 Meds/Results Medications: Active Medications Generic Name Dose Route Start Last Admin Trade Name Freq PRN Reason Stop Dose Admin Enoxaparin Sodium 40 mg 08/08/24 09:00 08/09/24 09:21 Enoxaparin 40 Mg/0.4 Ml Syringe SUB-Q 40 mg DAILY FIDELIA Administration Hydromorphone HCl 1 mg 08/08/24 02:49 08/08/24 03:01 Hydromorphone Hcl Inj (*Crx) 1 Mg/Ml Syr IV PUSH 1 mg
[2024-08-10] MEDS: ENOXAPARIN 40 MG/0.4 ML SYRINGE SUB-Q (09:52)
[2024-08-10 14:00] VITALS: BP 108/62; PULSE 68; RESP 20; TEMP 36.9; O2SAT 100
--- NOTE | 2024-08-10 14:00 | PM.PNGS ---
Progress Note: A&P Assessment and Plan (1) Diverticulitis of intestine with perforation: Qualifiers: Diverticulitis bleeding: without bleeding Diverticulitis site: large intestine Qualified Code(s): K57.20 - Diverticulitis of large intestine with perforation and abscess without bleeding Code(s): K57.80 - Diverticulitis of intestine, part unspecified, with perforation and abscess without bleeding Status: Acute Assessment and Plan: Advance to full liquids. Transition to oral pain meds. Continue Zosyn. WBC has remained normal and afebrile, but patient still has worsening pain at times. Will check CRP with AM labs. (2) UTI (urinary tract infection): Qualifiers: Hematuria presence: without hematuria Urinary tract infection type: acute cystitis Qualified Code(s): N30.00 - Acute cystitis without hematuria Code(s): N39.0 - Urinary tract infection, site not specified Status: Acute Subjective Subjective Date/Time Seen: 08/10/24 14:00 Interval history: Patient still having LLQ pain. Was doing better last night, but felt some worsening pain after BM this AM. No fevers. Bowels liquid. No nausea or vomiting. Exam GI: Inspection: non-distended GI Palp: Yes Soft to palpation, Yes Tenderness to palpation present (GI) (mild LLQ) and No Guarding due to palpation present (GI) Auscultation: normal bowel sounds Objective Data Vital Signs Vital Signs: Vital Signs - 24 hr 08/09/24 20:54 08/09/24 20:51 08/09/24 22:19 Temperature 98.4 F Pulse Rate 62 Respiratory Rate 20 18 18 Blood Pressure 101/49 L Pulse Oximetry 100 100 Oxygen Delivery Room Air 08/10/24 06:00 08/10/24 09:50 Temperature 98.4 F Pulse Rate 77 Respiratory Rate 20 Blood Pressure 96/44 L Pulse Oximetry 100 Oxygen Delivery Room Air Intake/Output Intake/Output: Intake & Output 08/07/24 08/08/24 08/09/24 08/10/24 23:59 23:59 23:59 23:59 Intake Total 1100 2450.0 2370 660 Output Total 300 Balance 800 2450.0 2370 660 Meds/Results Medications: Active Medications Generic Name Dose Route Start Last Admin Trade Name Freq PRN Reason Stop Dose Admin Hydrocodone Bitart/Acetaminophen 1 tab 08/10/24 13:25 Hydrocodone/Acetaminophen (*Crx) 5-325 Mg Tablet PO Q4H PRN Pain Rated 4-6 Hydrocodone Bitart/Acetaminophen 1 tab 08/10/24 13:25 Hydrocodone/Acetaminophen (*Crx) 7.5-325 Mg Tablet PO Q4H PRN Pain Rated 7-10 Enoxaparin Sodium 40 mg 08/08/24 09:00 08/10/24 09:52 Enoxaparin 40 Mg/0.4 Ml Syringe SUB-Q 40 mg DAILY FIDELIA Administration Piperacillin/Tazobactam/Dextrose 3.375 gm in 50 mls @ 100 mls/hr 08/08/24 00:00 08/10/24 13:02 Zosyn 3.375 Gm/Ns 50 Ml IVPB Infused Q6HR FIDELIA Infusion Ibuprofen 600 mg 08/10/24 13:25 Ibuprofen 600 Mg Tablet PO Q6H PRN Pain Rated 1-3 Ondansetron HCl 4 mg 08/07/24 18:01 08/09/24 20:51 Ondansetron Inj 4 Mg/2 Ml Vial IV PUSH 4 mg Q4H PRN Administration Nausea And Vomiting Radiology Results: ITS Impressions Abdomen/Pelvis CT 08/07/24 14:12 IMPRESSION: 1. Prominent inflammatory stranding surrounding several foci of extraluminal gas with surrounding enhancing soft tissue associated with a short segment of prominent wall thickening at the proximal sigmoid colon statistically most likely to represent perforated diverticulitis although the amount of surrounding enhancing soft tissue greater than expected suggests this could be acute on chronic. Differential would also include malignancy with secondary perforation. Consider follow-up colonoscopy for further evaluation when clinically improved. 2. T-shaped IUD in expected position within the anteverted uterus. Labs Labs: Laboratory Results - last 24 hr 08/10/24 05:03 WBC 4.8 RBC 3.36 L Hgb 9.8 L Hct 30.9 L MCV 92.0 MCH 29.2 MCHC 31.7 L RDW 13.2 Plt Count 269 MPV 10.2 Immature Gran % (A
[2024-08-10] MEDS: HYDROcodone/acetaminophen (*CRX) 5-325 MG TABLET 1 TAB PO ×2 (14:50→21:05)
[2024-08-10 15:27] VITALS: O2SAT 100
[2024-08-10 21:49] VITALS: BP 100/60; PULSE 65; RESP 16; TEMP 36.6; O2SAT 99
[2024-08-10] MEDS: ONDANSETRON INJ 4 MG/2 ML VIAL IV PUSH (22:35)
[2024-08-11 05:31] VITALS: BP 92/50; PULSE 50; RESP 12; TEMP 36.1; O2SAT 99
[2024-08-11] MEDS: PIPERACILLN/TAZ 3.375GM/NS50ML 3.375 GM/50 ML BAG IVPB ×3 (05:34→17:35)
[2024-08-11 06:11] LABS: Basophils Percent Auto 0.6 % (0.2-1.2); Eosinophils Absolute Auto 0.1 K/mm3 (0-0.3); Eosinophils Percent Auto 1.5 % (0-4.4); Hemoglobin 9.7 g/dL (12.0-15.0); Immature Granulocyte Absolute 0.01 K/mm3 (0.00-0.031); Immature Granulocyte Percent A 0.2 % (0-0.5); Lymphocytes Absolute Auto 1.81 K/mm3 (0.9-3.2); Lymphocytes Percent Auto 38.2 % (18.3-44.2); Mean Corpuscular HGB Conc 32.3 g/dl (32-36); Mean Corpuscular Hemoglobin 29.7 pg (26-34); Mean Corpuscular Volume 91.7 fl (80-100); Mean Platelet Volume 10.4 fl (7.4-10.4); Monocytes Absolute Auto 0.4 K/mm3 (0.1-0.6); Monocytes Percent Auto 8.2 % (2.6-8.5); Neutrophils Absolute Auto 2.4 K/mm3 (1.3-6.7); Neutrophils Percent Auto 51.3 % (45.5-73.1); Platelet Count Result 274 k/mm3 (150-375); Red Blood Count 3.27 M/mm3 (4.2-5.4); Red Cell Distribution Width 13.4 % (11.5-14.5); White Blood Count 4.7 K/mm3 (4.5-10.0)
[2024-08-11 06:22] LABS: Alanine Aminotransferase 8 U/L (6-35); Albumin Level 3.5 g/dL (3.5-5.1); Alkaline Phosphatase 47 U/L (38-126); Anion Gap 10 mmol/L (4-12); Aspartate Amino Transferase 15 U/L (14-36); Bilirubin,Total 0.5 mg/dL (0.2-1.3); CRP < 0.5 mg/dL (<1.0); Calcium 8.6 mg/dL (8.4-10.2); Carbon Dioxide 24 mmol/L (22-30); Chloride 105 mmol/L (98-107); Estimated CRCL calculation 70 ml/min; Estimated Glomerular Filt Rate > 60; Glucose 95 mg/dL (65-110); Potassium 3.7 mmol/L (3.4-5.0); Sodium 139 mmol/L (137-145)
[2024-08-11 06:34] LABS: Blood Urea Nitrogen < 2 mg/dL (7-17)
--- NOTE | 2024-08-11 07:57 | PM.IMPN ---
Progress Note: A&P Assessment and Plan (1) Diverticulitis of intestine with perforation: Qualifiers: Diverticulitis bleeding: without bleeding Diverticulitis site: large intestine Qualified Code(s): K57.20 - Diverticulitis of large intestine with perforation and abscess without bleeding Code(s): K57.80 - Diverticulitis of intestine, part unspecified, with perforation and abscess without bleeding Status: Acute Assessment and Plan: 08/08/24: CT of the abdomen/pelvis show prominent inflammatory stranding surrounding several foci of extraluminal gas with surrounding enhancing soft tissue associated with a short segment of prominent wall thickening at the proximal sigmoid colon representing perforated diverticulitis Patient given dose of Rocephin, Flagyl, and Zosyn while in the ER continue Zosyn General surgery following Continue pain and nausea control Blood cultures obtained and are pending 08/09/24: Blood cultures showing no growth to date on preliminary read Continue Zosyn per general surgery team Continue pain control General surgery following 08/11/24: Continue Zosyn General surgery following CT scan today shown no significant change in foci of extraluminal gas within an inflammatory mass at the periphery of a short segment of focal wall thickening at the proximal sigmoid colon for which differential remains perforated diverticulitis versus malignancy, no abscess, interval increase in size of a previous 2.5 cm left adnexal cyst/follicle, now measuring 3.8 cm. Increase to low-fiber diet Continue nausea control (2) UTI (urinary tract infection): Qualifiers: Hematuria presence: without hematuria Urinary tract infection type: acute cystitis Qualified Code(s): N30.00 - Acute cystitis without hematuria Code(s): N39.0 - Urinary tract infection, site not specified Status: Acute Assessment and Plan: 08/08/24: UA shown cloudy appearance, 1+ urine protein, 4+ urine ketones, 1+ urine blood, positive nitrates, 1+ leukocytes, 6-10 urine RBCs, 21-50 urine WBCs, 4+ urine bacteria Currently on Zosyn Urine culture pending 08/09/24: Urine culture showing Ecoli on preliminary read Continue Zosyn for now 08/11/24: No change to current treatment plan Time Spent With Patient Time with patient: 15 - 25 minutes Subjective Date/time seen: 08/11/24 07:57 Interval history: Interval history: This is a 33 year old female who presented to the hospital on 08/07/24 with complaint of abdominal pain in the left lower quadrant with associated nausea and vomiting. Work up in the hospital included a Ct of the abdomen/pelvis which shown prominent inflammatory stranding surrounding several foci of extraluminal gas with surrounding enhancing soft tissue associated with a short segment of prominent wall thickening at the proximal sigmoid colon representing perforated diverticulitis. Initial labs shown Hgb 10.7, otherwise unremarkable. UA was obtained and shown 1+ urine protein, 4+ urine ketones, 1+ urine blood, positive nitrate, 1+ leukocyte, 6-10 urine RBC, 21-50 urine WBC, many urine squamous cells, 4+ bacteria. Blood and urine cultures were obtained and are pending. Patient was given a dose of Flagyl, Rocephin, Zosyn, 1L NS, pain and nausea medication while in the ER. General surgery was consulted. 08/09/24 urine culture showing Ecoli on preliminary read, blood cultures showing no growth to date on preliminary read. Subjective: Reports that her pain is improving. She has been able a tolerate full liquid diet and was moved up to a low-fiber diet today. She denies any other new complaints today. Labs reviewed. Review of Systems Review of Systems: All systems reviewed & are unremarkable except as noted in HPI and below Constitutional: Constitutional: Reports as per HPI and Reports no additional constitutional complaints Eyes: Eyes: Reports as per HPI and Reports no additional eye compl
--- NOTE | 2024-08-11 09:49 | PM.PNGS ---
Progress Note: A&P Assessment and Plan (1) Diverticulitis of intestine with perforation: Qualifiers: Diverticulitis bleeding: without bleeding Diverticulitis site: large intestine Qualified Code(s): K57.20 - Diverticulitis of large intestine with perforation and abscess without bleeding Code(s): K57.80 - Diverticulitis of intestine, part unspecified, with perforation and abscess without bleeding Status: Acute Assessment and Plan: Patient with some improvement in her abdominal pain, but continues to have an inflammatory mass in the LLQ that is tender. WBC is normal and she is afebrile. We will go ahead and advance her to a low fiber diet. Will also order a repeat CT scan of the abdomen and pelvis to evaluate further. Continue IV antibiotics (2) UTI (urinary tract infection): Qualifiers: Hematuria presence: without hematuria Urinary tract infection type: acute cystitis Qualified Code(s): N30.00 - Acute cystitis without hematuria Code(s): N39.0 - Urinary tract infection, site not specified Status: Acute Plan I have discussed the patient's case and plan of care with Dr. Lang. Subjective Subjective Date/Time Seen: 08/11/24 09:49 Patient reports: pain is less, tolerating liquids well, voiding w/o difficulty, flatus, diarrhea and afebrile Interval history: Chart reviewed through the weekend. WBC normalized and she is afebrile. She reports her abdominal pain has improved since admission, but she is still having LLQ pain mostly with movement and getting up out of bed. She is also having intermittently sharp stabbing LLQ pain that comes and goes. No nausea or vomiting. She is having loose stools. Denies blood in stool. Exam Const: General: comfortable and no acute distress Orientation/consciousness: patient oriented x3 GI: Inspection: non-distended GI Palp: Yes Soft to palpation (soft throughout other than an inflammatory mass in the LLQ), Yes Tenderness to palpation present (GI) (LLQ), Yes Guarding due to palpation present (GI) (LLQ) and No Rebound tenderness present Auscultation: normal bowel sounds Objective Data Vital Signs Vital Signs: Vital Signs - 24 hr 08/10/24 09:50 08/10/24 14:00 08/10/24 15:27 Temperature 98.4 F Pulse Rate 68 Respiratory Rate 20 Blood Pressure 108/62 Pulse Oximetry 100 100 Oxygen Delivery Room Air Room Air 08/10/24 21:49 08/10/24 21:05 08/11/24 05:31 Temperature 97.8 F 96.9 F L Pulse Rate 65 50 L Respiratory Rate 16 12 Blood Pressure 100/60 92/50 L Pulse Oximetry 99 99 Oxygen Delivery Room Air Intake/Output Intake/Output: Intake & Output 08/08/24 08/09/24 08/10/24 08/11/24 23:59 23:59 23:59 23:59 Intake Total 2450.0 2370 1240 500 Balance 2450.0 2370 1240 500 Meds/Results Medications: Active Medications Generic Name Dose Route Start Last Admin Trade Name Freq PRN Reason Stop Dose Admin Hydrocodone Bitart/Acetaminophen 1 tab 08/10/24 13:25 08/10/24 21:05 Hydrocodone/Acetaminophen (*Crx) 5-325 Mg Tablet PO 1 tab Q4H PRN Administration Pain Rated 4-6 Hydrocodone Bitart/Acetaminophen 1 tab 08/10/24 13:25 Hydrocodone/Acetaminophen (*Crx) 7.5-325 Mg Tablet PO Q4H PRN Pain Rated 7-10 Enoxaparin Sodium 40 mg 08/08/24 09:00 08/10/24 09:52 Enoxaparin 40 Mg/0.4 Ml Syringe SUB-Q 40 mg DAILY FIDELIA Administration Piperacillin/Tazobactam/Dextrose 3.375 gm in 50 mls @ 100 mls/hr 08/08/24 00:00 08/11/24 06:04 Zosyn 3.375 Gm/Ns 50 Ml IVPB Infused Q6HR FIDELIA Infusion Ibuprofen 600 mg 08/10/24 13:25 Ibuprofen 600 Mg Tablet PO Q6H PRN Pain Rated 1-3 Ondansetron HCl 4 mg 08/07/24 18:01 08/10/24 22:35 Ondansetron Inj 4 Mg/2 Ml Vial IV PUSH 4 mg Q4H PRN Administration Nausea And Vomiting Labs Labs: Laboratory Results - last 24 hr 08/11/24 05:39 WBC 4.7 RBC 3.27 L Hgb 9.7 L Hct 30.0 L MCV 91.7 MCH 29.7
[2024-08-11] MEDS: HYDROcodone/acetaminophen (*CRX) 5-325 MG TABLET 1 TAB PO (13:56)
[2024-08-11] MEDS: ONDANSETRON INJ 4 MG/2 ML VIAL IV PUSH (13:57)
[2024-08-11 15:28] VITALS: BP 101/62; PULSE 60; RESP 17; TEMP 36.8; O2SAT 100
[2024-08-11 22:00] VITALS: BP 98/57; PULSE 70; RESP 18; TEMP 36.7; O2SAT 100
[2024-08-11 23:14] VITALS: BP 94/64; PULSE 70; RESP 18; TEMP 36.7; O2SAT 100
[2024-08-12] MEDS: PIPERACILLN/TAZ 3.375GM/NS50ML 3.375 GM/50 ML BAG IVPB ×2 (00:24→05:18)
[2024-08-12] MEDS: HYDROcodone/acetaminophen (*CRX) 5-325 MG TABLET 1 TAB PO ×2 (00:29→06:24)
[2024-08-12 05:52] LABS: Basophils Percent Auto 0.5 % (0.2-1.2); Eosinophils Absolute Auto 0.1 K/mm3 (0-0.3); Eosinophils Percent Auto 1.3 % (0-4.4); Hematocrit 28.5 % (37.0-47.0); Immature Granulocyte Absolute 0.01 K/mm3 (0.00-0.031); Immature Granulocyte Percent A 0.2 % (0-0.5); Lymphocytes Absolute Auto 1.77 K/mm3 (0.9-3.2); Lymphocytes Percent Auto 28.4 % (18.3-44.2); Mean Corpuscular HGB Conc 31.6 g/dl (32-36); Mean Corpuscular Hemoglobin 28.8 pg (26-34); Mean Corpuscular Volume 91.1 fl (80-100); Mean Platelet Volume 10.4 fl (7.4-10.4); Monocytes Absolute Auto 0.4 K/mm3 (0.1-0.6); Monocytes Percent Auto 6.3 % (2.6-8.5); Neutrophils Percent Auto 63.3 % (45.5-73.1); Platelet Count Result 224 k/mm3 (150-375); Red Blood Count 3.13 M/mm3 (4.2-5.4); Red Cell Distribution Width 13.6 % (11.5-14.5); White Blood Count 6.2 K/mm3 (4.5-10.0)
[2024-08-12 06:00] VITALS: BP 85/51; PULSE 60; RESP 18; TEMP 36.4; O2SAT 99
[2024-08-12 06:13] VITALS: BP 92/57; PULSE 65; RESP 16; TEMP 36.3; O2SAT 98
[2024-08-12 06:13] LABS: Alanine Aminotransferase 9 U/L (6-35); Albumin Level 3.3 g/dL (3.5-5.1); Alkaline Phosphatase 41 U/L (38-126); Anion Gap 8 mmol/L (4-12); Aspartate Amino Transferase 15 U/L (14-36); Bilirubin,Total 0.2 mg/dL (0.2-1.3); Blood Urea Nitrogen 3 mg/dL (7-17); CRP < 0.5 mg/dL (<1.0); Calcium 8.2 mg/dL (8.4-10.2); Carbon Dioxide 25 mmol/L (22-30); Chloride 105 mmol/L (98-107); Estimated CRCL calculation 79 ml/min; Estimated Glomerular Filt Rate > 60; Glucose 122 mg/dL (65-110); Potassium 3.2 mmol/L (3.4-5.0); Sodium 138 mmol/L (137-145)
--- NOTE | 2024-08-12 06:38 | PM.PNGS ---
Progress Note: A&P Assessment and Plan (1) Diverticulitis of intestine with perforation: Qualifiers: Diverticulitis bleeding: without bleeding Diverticulitis site: large intestine Qualified Code(s): K57.20 - Diverticulitis of large intestine with perforation and abscess without bleeding Code(s): K57.80 - Diverticulitis of intestine, part unspecified, with perforation and abscess without bleeding Status: Acute Assessment and Plan: Continues to improve. Discussed with patient that I would like her to not require narcotics before she goes home. She will try to use ibuprofen 600 mg rather than [place] as needed for pain. She also can use Tylenol. Still has inflammatory mass left lower quadrant. Will need to go home on a week of antibiotics and low-fiber diet. If not requiring narcotics, could possibly go home tomorrow. Subjective Subjective Date/Time Seen: 08/12/24 06:38 Patient reports: still having pain (Took [place] 5/325 at midnight and is taking again this morning.), tolerating a regular diet (Low-fiber diet), voiding w/o difficulty, bowel movement and afebrile Review of Systems Review of Systems: All systems reviewed & are unremarkable except as noted in HPI and below (HPI) Exam Const: General: comfortable and no acute distress Orientation/consciousness: patient oriented x3 GI: Inspection: normal to inspection, non-distended and scaphoid GI Palp: Yes Soft to palpation, Yes Tenderness to palpation present (GI) (Left lower quadrant with inflammatory mass, less than yesterday), No Guarding due to palpation present (GI) and No Rebound tenderness present Auscultation: normoactive bowel sounds Neuro: General: patient oriented x3 and no focal motor deficits Extrem: General: no calf tenderness and no edema Psych: Affect: normal affect Insight: Good insight present (Psych) Judgement: Good judgement present (Psych) Objective Data Vital Signs Vital Signs: Vital Signs - 24 hr 08/11/24 08:00 08/11/24 15:28 08/11/24 20:17 Temperature 36.8 C Pulse Rate 60 Respiratory Rate 17 Blood Pressure 101/62 Pulse Oximetry 100 Oxygen Delivery Room Air Room Air 08/11/24 22:00 08/11/24 23:14 08/12/24 06:13 Temperature 36.7 C 36.7 C 36.3 C L Pulse Rate 70 70 65 Respiratory Rate 18 18 16 Blood Pressure 98/57 L 94/64 L 92/57 L Pulse Oximetry 100 100 98 Oxygen Delivery 08/12/24 06:00 Temperature 36.4 C Pulse Rate 60 Respiratory Rate 18 Blood Pressure 85/51 L Pulse Oximetry 99 Oxygen Delivery Intake/Output Intake/Output: Intake & Output 08/09/24 08/10/24 08/11/24 08/12/24 23:59 23:59 23:59 23:59 Intake Total 2370 1240 1810 100 Balance 2370 1240 1810 100 Meds/Results Medications: Active Medications Generic Name Dose Route Start Last Admin Trade Name Freq PRN Reason Stop Dose Admin Enoxaparin Sodium 40 mg 08/08/24 09:00 08/11/24 12:34 Enoxaparin 40 Mg/0.4 Ml Syringe SUB-Q Not Given DAILY FIDELIA Piperacillin/Tazobactam/Dextrose 3.375 gm in 50 mls @ 100 mls/hr 08/08/24 00:00 08/12/24 05:48 Zosyn 3.375 Gm/Ns 50 Ml IVPB Infused Q6HR FIDELIA Infusion Ibuprofen 600 mg 08/12/24 06:37 Ibuprofen 600 Mg Tablet PO Q6H PRN Pain Rated 4-6 Ondansetron HCl 4 mg 08/07/24 18:01 08/11/24 13:57 Ondansetron Inj 4 Mg/2 Ml Vial IV PUSH 4 mg Q4H PRN Administration Nausea And Vomiting Radiology Results: ITS Impressions Abdomen/Pelvis CT 08/11/24 10:00 IMPRESSION: 1. No significant change in a few foci of extra luminal gas within an inflammatory mass at the periphery of a short segment of focal wall thickening at the proximal sigmoid colon for which differential remains perforated diverticulitis versus malignancy. No abscess. 2. Interval increase in size of a previous a 2.5 cm, currently 3.8 cm left adnexal cyst/follicle. Labs Labs: Laboratory Results - last 24 hr 08/12/24 05:42 WBC 6.2 RBC 3.13 L Hgb
--- NOTE | 2024-08-12 08:31 | P.PNIM_ITS ---
Progress Note: A&P Assessment and Plan (1) Diverticulitis of intestine with perforation: Qualifiers: Diverticulitis bleeding: without bleeding Diverticulitis site: large intestine Qualified Code(s): K57.20 - Diverticulitis of large intestine with perforation and abscess without bleeding Code(s): K57.80 - Diverticulitis of intestine, part unspecified, with perforation and abscess without bleeding Status: Acute Assessment and Plan: 08/08/24: * CT of the abdomen/pelvis show prominent inflammatory stranding surrounding several foci of extraluminal gas with surrounding enhancing soft tissue associated with a short segment of prominent wall thickening at the proximal sigmoid colon representing perforated diverticulitis * Patient given dose of Rocephin, Flagyl, and Zosyn while in the ER * continue Zosyn * General surgery following * Continue pain and nausea control * Blood cultures obtained and are pending 08/09/24: * Blood cultures showing no growth to date on preliminary read * Continue Zosyn per general surgery team * Continue pain control * General surgery following 08/11/24: * Continue Zosyn * General surgery following * CT scan today shown no significant change in foci of extraluminal gas within an inflammatory mass at the periphery of a short segment of focal wall thickening at the proximal sigmoid colon for which differential remains perforated diverticulitis versus malignancy, no abscess, interval increase in size of a previous 2.5 cm left adnexal cyst/follicle, now measuring 3.8 cm. * Increase to low-fiber diet * Continue nausea control 08/12/24: * Tolerating low fiber diet * Continue nausea and pain control with non narcotic pain medication * General surgery following * Can transition Zosyn to oral Levaquin and Flagyl (2) UTI (urinary tract infection): Qualifiers: Hematuria presence: without hematuria Urinary tract infection type: acute cystitis Qualified Code(s): N30.00 - Acute cystitis without hematuria Code(s): N39.0 - Urinary tract infection, site not specified Status: Acute Assessment and Plan: 08/08/24: * UA shown cloudy appearance, 1+ urine protein, 4+ urine ketones, 1+ urine blood, positive nitrates, 1+ leukocytes, 6-10 urine RBCs, 21-50 urine WBCs, 4+ urine bacteria * Currently on Zosyn * Urine culture pending 08/09/24: * Urine culture showing Ecoli on preliminary read * Continue Zosyn for now 08/11/24: * No change to current treatment plan Time Spent With Patient Time with patient: 25 - 35 minutes Subjective Date/time seen: 08/12/24 08:31 Interval history: Interval history: This is a 33 year old female who presented to the hospital on 08/07/24 with complaint of abdominal pain in the left lower quadrant with associated nausea and vomiting. Work up in the hospital included a Ct of the abdomen/pelvis which shown prominent inflammatory stranding surrounding several foci of extraluminal gas with surrounding enhancing soft tissue associated with a short segment of prominent wall thickening at the proximal sigmoid colon representing perforated diverticulitis. Initial labs shown Hgb 10.7, otherwise unremarkable. UA was obtained and shown 1+ urine protein, 4+ urine ketones, 1+ urine blood, positive nitrate, 1+ leukocyte, 6-10 urine RBC, 21-50 urine WBC, many urine squamous cells, 4+ bacteria. Blood and urine cultures were obtained and are pending. Patient was given a dose of Flagyl, Rocephin, Zosyn, 1L NS, pain and nausea med ication while in the ER. General surgery was consulted. 08/09/24 urine culture showing E-coli on pre
--- NOTE | 2024-08-12 08:31 | PM.IMPN ---
Progress Note: A&P Assessment and Plan (1) Diverticulitis of intestine with perforation: Qualifiers: Diverticulitis bleeding: without bleeding Diverticulitis site: large intestine Qualified Code(s): K57.20 - Diverticulitis of large intestine with perforation and abscess without bleeding Code(s): K57.80 - Diverticulitis of intestine, part unspecified, with perforation and abscess without bleeding Status: Acute Assessment and Plan: 08/08/24: CT of the abdomen/pelvis show prominent inflammatory stranding surrounding several foci of extraluminal gas with surrounding enhancing soft tissue associated with a short segment of prominent wall thickening at the proximal sigmoid colon representing perforated diverticulitis Patient given dose of Rocephin, Flagyl, and Zosyn while in the ER continue Zosyn General surgery following Continue pain and nausea control Blood cultures obtained and are pending 08/09/24: Blood cultures showing no growth to date on preliminary read Continue Zosyn per general surgery team Continue pain control General surgery following 08/11/24: Continue Zosyn General surgery following CT scan today shown no significant change in foci of extraluminal gas within an inflammatory mass at the periphery of a short segment of focal wall thickening at the proximal sigmoid colon for which differential remains perforated diverticulitis versus malignancy, no abscess, interval increase in size of a previous 2.5 cm left adnexal cyst/follicle, now measuring 3.8 cm. Increase to low-fiber diet Continue nausea control 08/12/24: Tolerating low fiber diet Continue nausea and pain control with non narcotic pain medication General surgery following Can transition Zosyn to oral Levaquin and Flagyl (2) UTI (urinary tract infection): Qualifiers: Hematuria presence: without hematuria Urinary tract infection type: acute cystitis Qualified Code(s): N30.00 - Acute cystitis without hematuria Code(s): N39.0 - Urinary tract infection, site not specified Status: Acute Assessment and Plan: 08/08/24: UA shown cloudy appearance, 1+ urine protein, 4+ urine ketones, 1+ urine blood, positive nitrates, 1+ leukocytes, 6-10 urine RBCs, 21-50 urine WBCs, 4+ urine bacteria Currently on Zosyn Urine culture pending 08/09/24: Urine culture showing Ecoli on preliminary read Continue Zosyn for now 08/11/24: No change to current treatment plan Time Spent With Patient Time with patient: 25 - 35 minutes Subjective Date/time seen: 08/12/24 08:31 Interval history: Interval history: This is a 33 year old female who presented to the hospital on 08/07/24 with complaint of abdominal pain in the left lower quadrant with associated nausea and vomiting. Work up in the hospital included a Ct of the abdomen/pelvis which shown prominent inflammatory stranding surrounding several foci of extraluminal gas with surrounding enhancing soft tissue associated with a short segment of prominent wall thickening at the proximal sigmoid colon representing perforated diverticulitis. Initial labs shown Hgb 10.7, otherwise unremarkable. UA was obtained and shown 1+ urine protein, 4+ urine ketones, 1+ urine blood, positive nitrate, 1+ leukocyte, 6-10 urine RBC, 21-50 urine WBC, many urine squamous cells, 4+ bacteria. Blood and urine cultures were obtained and are pending. Patient was given a dose of Flagyl, Rocephin, Zosyn, 1L NS, pain and nausea medication while in the ER. General surgery was consulted. 08/09/24 urine culture showing E-coli on preliminary read, blood cultures showing no growth to date on preliminary read. Subjective: Patient reports sharp pains in left lower quadrant intermittently. She is tolerating solid foods and antibiotics were switched today. Labs reviewed. Review of Systems Review of Systems: All systems reviewed & are unremarkable except as noted in HPI and below Constitutional: Con
[2024-08-12] MEDS: levoFLOXacin 750 MG TABLET PO (11:27)
[2024-08-12] MEDS: POTASSIUM CHLORIDE 20 MEQ ER TABLET 40 MEQ PO (11:27)
[2024-08-12] MEDS: metroNIDAZOLE 500 MG TABLET PO ×2 (13:50→21:06)
[2024-08-12 14:00] VITALS: BP 100/58; PULSE 70; RESP 14; TEMP 36.7; O2SAT 100
[2024-08-12] MEDS: POTASSIUM CHLORIDE 20 MEQ ER TABLET PO ×2 (17:34→17:35)
[2024-08-12] MEDS: IBUPROFEN 600 MG TABLET PO (17:44)
[2024-08-12 20:55] VITALS: PULSE 70; RESP 14; O2SAT 100
[2024-08-12 22:00] VITALS: BP 100/60; PULSE 72; RESP 16; TEMP 36.8; O2SAT 98
[2024-08-13] MEDS: metroNIDAZOLE 500 MG TABLET PO (05:58)
[2024-08-13 06:00] VITALS: BP 96/48; PULSE 79; RESP 18; TEMP 36.6; O2SAT 100
[2024-08-13 06:37] LABS: Basophils Percent Auto 0.4 % (0.2-1.2); Eosinophils Absolute Auto 0.1 K/mm3 (0-0.3); Eosinophils Percent Auto 1.1 % (0-4.4); Hematocrit 29.5 % (37.0-47.0); Hemoglobin 9.5 g/dL (12.0-15.0); Immature Granulocyte Absolute 0.01 K/mm3 (0.00-0.031); Immature Granulocyte Percent A 0.2 % (0-0.5); Lymphocytes Absolute Auto 1.48 K/mm3 (0.9-3.2); Lymphocytes Percent Auto 27.1 % (18.3-44.2); Mean Corpuscular HGB Conc 32.2 g/dl (32-36); Mean Corpuscular Hemoglobin 29.5 pg (26-34); Mean Corpuscular Volume 91.6 fl (80-100); Mean Platelet Volume 10.5 fl (7.4-10.4); Monocytes Absolute Auto 0.4 K/mm3 (0.1-0.6); Monocytes Percent Auto 6.8 % (2.6-8.5); Neutrophils Absolute Auto 3.5 K/mm3 (1.3-6.7); Neutrophils Percent Auto 64.4 % (45.5-73.1); Platelet Count Result 249 k/mm3 (150-375); Red Blood Count 3.22 M/mm3 (4.2-5.4); Red Cell Distribution Width 13.6 % (11.5-14.5); White Blood Count 5.5 K/mm3 (4.5-10.0)
[2024-08-13 06:48] LABS: Alanine Aminotransferase 8 U/L (6-35); Albumin Level 3.5 g/dL (3.5-5.1); Alkaline Phosphatase 47 U/L (38-126); Anion Gap 9 mmol/L (4-12); Aspartate Amino Transferase 16 U/L (14-36); Bilirubin,Total 0.2 mg/dL (0.2-1.3); Blood Urea Nitrogen 9 mg/dL (7-17); Calcium 8.6 mg/dL (8.4-10.2); Carbon Dioxide 22 mmol/L (22-30); Chloride 104 mmol/L (98-107); Estimated CRCL calculation 90 ml/min; Estimated Glomerular Filt Rate > 60; Glucose 103 mg/dL (65-110); Potassium 3.9 mmol/L (3.4-5.0); Sodium 135 mmol/L (137-145)
--- NOTE | 2024-08-13 09:22 | PM.DS ---
DS: Admitting Diagnosis Discharge Date 08/13/24 Admitting Diagnosis Diverticulitis of intestine with perforation UTI DS: Discharge Diagnosis Discharge Diagnosis (1) Diverticulitis of intestine with perforation: Qualifiers: Diverticulitis bleeding: without bleeding Diverticulitis site: large intestine Qualified Code(s): K57.20 - Diverticulitis of large intestine with perforation and abscess without bleeding Code(s): K57.80 - Diverticulitis of intestine, part unspecified, with perforation and abscess without bleeding Status: Acute (2) UTI (urinary tract infection): Qualifiers: Hematuria presence: without hematuria Urinary tract infection type: acute cystitis Qualified Code(s): N30.00 - Acute cystitis without hematuria Code(s): N39.0 - Urinary tract infection, site not specified Status: Acute DS: Summary Hospital Course Reason for hospitalization: Diverticulitis of intestine with perforation UTI Hospital Course: This is a 33 year old female who presented to the hospital on 08/07/24 with complaint of abdominal pain in the left lower quadrant with associated nausea and vomiting. Work up in the hospital included a Ct of the abdomen/pelvis which shown prominent inflammatory stranding surrounding several foci of extraluminal gas with surrounding enhancing soft tissue associated with a short segment of prominent wall thickening at the proximal sigmoid colon representing perforated diverticulitis. Initial labs shown Hgb 10.7, otherwise unremarkable. UA was obtained and shown 1+ urine protein, 4+ urine ketones, 1+ urine blood, positive nitrate, 1+ leukocyte, 6-10 urine RBC, 21-50 urine WBC, many urine squamous cells, 4+ bacteria. Blood and urine cultures were obtained and are pending. Patient was given a dose of Flagyl, Rocephin, Zosyn, 1L NS, pain and nausea medication while in the ER. General surgery was consulted. 08/09/24 urine culture showing E-coli on preliminary read, blood cultures showing no growth to date on preliminary read. Final diagnosis: Diverticulitis of intestine with perforation, UTI Status at Discharge Cognitive/behavioral status at discharge: Alert and oriented x3 Functional status at discharge: independent ambulation Overall status at discharge: patient is progressing back to baseline Time Spent with Patient Time attestation: Total time spent providing and/or coordinating discharge services: Time spent: Greater than 30 minutes Exam Narrative: General: In no acute distress, well nourished Cardiac: Normal S1 and S2. No murmur, gallops or friction rubs, peripheral pulses intact. Respiratory: Lungs clear to auscultation, no adventitious lung sounds, currently on room Gastrointestinal: soft, non-distended, non-tender, normoactive bowel sounds. : voiding without difficulty. Neuro: Alert and oriented x4 DS: Data Data Completed and Pending Completed studies during hospitalization: Abdomen/pelvis CT x2 Pending studies at discharge: None Labs on day of discharge: Labs from last 24 hours 08/13/24 06:17 WBC 5.5 RBC 3.22 L Hgb 9.5 L Hct 29.5 L MCV 91.6 MCH 29.5 MCHC 32.2 RDW 13.6 Plt Count 249 MPV 10.5 H Immature Gran % (Auto) 0.2 Neut % (Auto) 64.4 Lymph % (Auto) 27.1 [place] % (Auto) 6.8 Eos % (Auto) 1.1 Baso % (Auto) 0.4 Lymph # (Auto) 1.48 [place] # (Auto) 0.4 Eos # (Auto) 0.1 Baso # (Auto) 0.0 Abs Immat Gran (auto) 0.01 Absolute Neuts (auto) 3.5 Absolute Nucleated RBC 0.000 Nucleated RBC % 0.0 Sodium 135 L Potassium 3.9 Chloride 104 Carbon Dioxide 22 Anion Gap 9 BUN 9 D Creatinine 0.60 L Estim Creat Clear Calc 90 Estimated GFR > 60 Glucose 103 Calcium 8.6 Total Bilirubin 0.2 AST 16 ALT 8 Alkaline Phosphatase 47 Total Protein 6.0 L Albumin 3.5 Procedures/Treatments: None Discharge Plan Discharge Attending physician on discharge: Tori Marcus Consulting providers: Aguilar Lang
[2024-08-13] MEDS: POTASSIUM CHLORIDE 20 MEQ ER TABLET PO (10:00)
[2024-08-13] MEDS: levoFLOXacin 750 MG TABLET PO (10:00)
--- NOTE | 2024-08-13 10:03 | PM.PNGS ---
Progress Note: A&P Assessment and Plan (1) Diverticulitis of intestine with perforation: Qualifiers: Diverticulitis bleeding: without bleeding Diverticulitis site: large intestine Qualified Code(s): K57.20 - Diverticulitis of large intestine with perforation and abscess without bleeding Code(s): K57.80 - Diverticulitis of intestine, part unspecified, with perforation and abscess without bleeding Status: Acute Assessment and Plan: Much improved. Okay to discharge from surgical standpoint. Continue p.o. antibiotics for another week. I will see her in the office in 1 week. Stay on low-fiber diet. Depending on how she does from an outpatient standpoint will determine when she will be coming back in for sigmoidectomy. (2) UTI (urinary tract infection): Qualifiers: Hematuria presence: without hematuria Urinary tract infection type: acute cystitis Qualified Code(s): N30.00 - Acute cystitis without hematuria Code(s): N39.0 - Urinary tract infection, site not specified Status: Acute Assessment and Plan: Doubt this will need further treatment on discharge. Subjective Subjective Date/Time Seen: 08/13/24 10:03 Patient reports: no new complaints, feels better, pain is less (Did not require any narcotic analgesics last 24 hours), voiding w/o difficulty and afebrile Review of Systems Review of Systems: All systems reviewed & are unremarkable except as noted in HPI and below (HPI) Exam Const: General: cooperative, comfortable, no acute distress, alert and awake Orientation/consciousness: patient oriented x3 GI: Inspection: normal to inspection, non-distended and scaphoid GI Palp: Yes Soft to palpation, Yes Tenderness to palpation present (GI) (Less tender left lower quadrant), No Guarding due to palpation present (GI), Yes Palpable mass present (Left lower quadrant inflammatory mass, less tender) and No Rebound tenderness present Auscultation: normal bowel sounds Neuro: General: patient oriented x3 and no focal motor deficits Extrem: General: no calf tenderness and no edema Psych: Affect: normal affect Insight: Good insight present (Psych) Judgement: Good judgement present (Psych) Objective Data Vital Signs Vital Signs: Vital Signs - 24 hr 08/12/24 14:00 08/12/24 20:55 08/12/24 22:00 Temperature 36.7 C 36.8 C Pulse Rate 70 70 72 Respiratory Rate 14 14 16 Blood Pressure 100/58 L 100/60 Pulse Oximetry 100 100 98 Oxygen Delivery Room Air 08/13/24 06:00 Temperature 36.6 C Pulse Rate 79 Respiratory Rate 18 Blood Pressure 96/48 L Pulse Oximetry 100 Oxygen Delivery Intake/Output Intake/Output: Intake & Output 08/10/24 08/11/24 08/12/24 08/13/24 23:59 23:59 23:59 23:59 Intake Total 1240 1810 1250 100 Balance 1240 1810 1250 100 Meds/Results Medications: Active Medications Generic Name Dose Route Start Last Admin Trade Name Freq PRN Reason Stop Dose Admin Acetaminophen 650 mg 08/12/24 06:36 Acetaminophen 325 Mg Tablet PO Q4H PRN Mild Pain (1-3) or Fever Hydrocodone Bitart/Acetaminophen 1 tab 08/12/24 06:37 Hydrocodone/Acetaminophen (*Crx) 5-325 Mg Tablet PO Q4H PRN Pain Rated 7-10 Enoxaparin Sodium 40 mg 08/08/24 09:00 08/13/24 09:59 Enoxaparin 40 Mg/0.4 Ml Syringe SUB-Q Not Given DAILY FIDELIA Ibuprofen 600 mg 08/12/24 06:37 08/12/24 17:44 Ibuprofen 600 Mg Tablet PO 600 mg Q6H PRN Administration Pain Rated 4-6 Levofloxacin 750 mg 08/12/24 11:00 08/13/24 10:00 Levofloxacin 750 Mg Tablet PO 08/19/24 09:01 750 mg DAILY FIDELIA Administration Metronidazole 500 mg 08/12/24 14:00 08/13/24 05:58 Metronidazole 500 Mg Tablet PO 08/19/24 22:01 500 mg Q8HR FIDELIA Administration Ondansetron HCl 4 mg 08/07/24 18:01 08/11/24 13:57 Ondansetron Inj 4 Mg/2 Ml Vial IV PUSH 4 mg Q4H PRN Administration Nausea And Vomiting Potassium Chloride 20 meq
[2024-08-13] MEDS: IBUPROFEN 600 MG TABLET PO (11:58)
== END 2024-08-13 12:21 | disposition home or self-care (01) | DRG 244 ==
LOC: ANHED 17:23 → ANH2MED 18:10
PROVIDERS: Surgery; Admitting Provider General Practice; Emergency Provider Emergency Medicine; Visit Provider Nurse Practitioner Acute Care
DX: K57.20 Diverticulitis of large intestine with perforation and abscess without bleeding (principal); N39.0 Urinary tract infection, site not specified; B96.20 Unspecified Escherichia coli [E. coli] as the cause of diseases classified elsewhere; F41.9 Anxiety disorder, unspecified; F17.210 Nicotine dependence, cigarettes, uncomplicated; Z87.891 Personal history of nicotine dependence
CPT/HCPCS: 36415; 74177; 80048; 80053; 81001; 81025; 82378; 83690; 85025; 86140; 87040; 87077; 87086; 87088; 87186; 96361; 96365; 96375; 96376; 99285; A9270; G0378; G0379; J1170; J1650; J1741; J2270; J2405; J2543; J7030; J7120; Q9967

== ENCOUNTER 2024-09-01 11:44 | Outpatient (CLI) | payer OTHER, SELFPAY ==
--- NOTE | ~2024-09-01 | CT_ITS ---
EXAMINATION: CT abdomen pelvis w con DATE: 09/01/2024 12:16 INDICATION: Diverticulitis of intestine, part unspecified. TECHNIQUE: Computed tomography (CT) of the abdomen and pelvis was performed with 100 mL Omnipaque 350 intravenous contrast. Automated exposure control and iterative reconstruction technique were employe d. The dose-length product was 189.66 mGy-cm. COMPARISON: CT abdomen and pelvis 08/11/2024 FINDINGS: The visualized portions of the lung bases are clear without pneumonia or pleural effusion. The heart size is normal. No pericardial effusion. There are cysts in the liver measuring up to 4 mm. Calcifications in the liver are consistent with old granulomatous disease. The spleen, gallbladder, pancreas, adrenal glands, and kidneys are normal. There is an intrauterine device in expected positio n. There is fat stranding adjacent to the sigmoid colon with a 5.2 x 3.1 x 3.4 cm perisigmoid abscess . There are no dilated loops of bowel. The appendix is normal. There are no pathologically enlarged l ymph nodes. There is no free intraperitoneal fluid. There is mild lumbar spondylosis. IMPRESSION: 1. Sigmoid diverticulitis with worsened 5.2 x 3.1 x 3.4 cm perisigmoid abscess. Reviewed, dictated and finalized at location A.
[2024-09-01 12:25] LABS: Basophils Percent Auto 0.4 % (0.2-1.2); Eosinophils Absolute Auto 0.1 K/mm3 (0-0.3); Eosinophils Percent Auto 0.7 % (0-4.4); Hematocrit 33.2 % (37.0-47.0); Hemoglobin 10.3 g/dL (12.0-15.0); Immature Granulocyte Absolute 0.02 K/mm3 (0.00-0.031); Immature Granulocyte Percent A 0.3 % (0-0.5); Lymphocytes Absolute Auto 1.32 K/mm3 (0.9-3.2); Lymphocytes Percent Auto 19.7 % (18.3-44.2); Mean Corpuscular Hemoglobin 27.8 pg (26-34); Mean Corpuscular Volume 89.5 fl (80-100); Mean Platelet Volume 9.3 fl (7.4-10.4); Monocytes Absolute Auto 0.4 K/mm3 (0.1-0.6); Monocytes Percent Auto 6.3 % (2.6-8.5); Neutrophils Absolute Auto 4.9 K/mm3 (1.3-6.7); Neutrophils Percent Auto 72.6 % (45.5-73.1); Platelet Count Result 437 k/mm3 (150-375); Red Blood Count 3.71 M/mm3 (4.2-5.4); Red Cell Distribution Width 14.3 % (11.5-14.5); White Blood Count 6.7 K/mm3 (4.5-10.0)
[2024-09-01 14:12] LABS: Anion Gap 10 mmol/L (4-12); Blood Urea Nitrogen 8 mg/dL (7-17); Calcium 9.1 mg/dL (8.4-10.2); Carbon Dioxide 26 mmol/L (22-30); Chloride 101 mmol/L (98-107); Estimated Glomerular Filt Rate > 60; Glucose 91 mg/dL (65-110); Potassium 4.4 mmol/L (3.4-5.0); Sodium 137 mmol/L (137-145)
== END 2024-09-01 11:45 | disposition home or self-care (01) ==
LOC: ANHIMG 11:47
PROVIDERS: Visit Provider Surgery
DX: R19.04 Left lower quadrant abdominal swelling, mass and lump (principal); K59.00 Constipation, unspecified; K57.32 Diverticulitis of large intestine without perforation or abscess without bleeding
CPT/HCPCS: 36415; 74177; 80048; 85025; Q9967

== ENCOUNTER 2024-09-01 21:54 | Inpatient (IN) | payer OTHER, SELFPAY ==
--- NOTE | ~2024-09-01 | CT_ITS ---
EXAMINATION: CT guide absc cath placement DATE: 09/02/2024 10:04 INDICATION: Perisigmoid abscess. TECHNIQUE: The procedure including the risks, benefits, and alternatives was discussed with the patie nt. Risks discussed included bleeding and infection. The patient understood the risks and benefits an d agreed to proceed. The skin overlying the abdomen was prepped and draped in usual sterile fashion. Anesthetic was administered with 1% lidocaine subcutaneously. Moderate sedation was achieved with 2 mg Versed IV and 75 mg IV. An 18 gauge trochar needle was inserted into the perisigmoid abscess with CT guidance. The needle was exchanged over a wire for 5 Albanian and 7 Albanian dilators and then for an 8.5 Albanian pigtail catheter. The catheter was stitched to the skin, and a sterile dressing was appli ed. The mA was adjusted according to patient size. Iterative reconstruction technique was employed. T he dose-length product was 186.40 mGy-cm. There were no immediate complications. FINDINGS: CT images demonstrate the catheter within the perisigmoid abscess. IMPRESSION: 1. Successful CT-guided perisigmoid abscess drainage. Reviewed, dictated and finalized at location A.
[2024-09-01 21:39] VITALS: BP 113/63; PULSE 89; RESP 14; TEMP 37.7; O2SAT 98
[2024-09-01 21:40] VITALS: BMI 20.1
--- NOTE | 2024-09-01 21:53 | ADMGEN ---
This patient, Libby Maldonado, was admitted to [facility] Surg Room 300-01. Patient/family oriented to hospital policies and general routines including ID bracelet, bed and alarms, visiting hours, pain management, procedures, bathroom and other care routines, personal items, smoking policy, room service/diet, and visiting hours. Information on how to activate the Rapid Response Team has been discussed. Patient/Family are encouraged to report perceived risks to care and to ask questions if they do not understand what they are told or what they should do.
[2024-09-01 21:54] VITALS: BP 106/60; PULSE 86; RESP 14; TEMP 37.2; O2SAT 100
--- NOTE | 2024-09-01 22:07 | PC.NURSE ---
Reached out to notify Dr. Lang of patients arrival. 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 Made aware and stated he will look into the matter to obtain orders.
[2024-09-01 22:09] VITALS: BP 103/69; PULSE 78; RESP 14; TEMP 37.3; O2SAT 98
[2024-09-01] MEDS: HYDROmorphone HCL INJ (*CRX) 1 MG/ML SYR IV PUSH (23:10)
[2024-09-01] MEDS: PIPERACILLN/TAZ 3.375GM/NS50ML 3.375 GM/50 ML BAG IVPB (23:17)
[2024-09-01] MEDS: ONDANSETRON INJ 4 MG/2 ML VIAL IV PUSH (23:17)
[2024-09-01] MEDS: FAMOTIDINE 20 MG/2 ML VIAL IV PUSH (23:17)
[2024-09-01] MEDS: LACTATED RINGERS 1,000 ML 100 ML IV CONT (23:20)
[2024-09-01] MEDS: IBUPROFEN IV 800 MG/200 ML 800 MG/200 ML BAG 250 MG IVPB (23:58)
[2024-09-02] VITALS (17 sets, daily range): BP systolic 87–132; BP diastolic 51–88; PULSE 64–90; RESP 12–22; TEMP 35.9–37.2; O2SAT 95–100; BMI 20.2
--- NOTE | 2024-09-02 00:33 | PC.NURSE ---
called pharmacy and confirmed, Zosyn is not y-site compatible with LR
[2024-09-02] MEDS: PIPERACILLN/TAZ 3.375GM/NS50ML 3.375 GM/50 ML BAG IVPB ×4 (05:38→23:35)
[2024-09-02] MEDS: HYDROmorphone HCL INJ (*CRX) 1 MG/ML SYR 0.5 MG IV PUSH (05:39)
[2024-09-02] MEDS: ONDANSETRON INJ 4 MG/2 ML VIAL IV PUSH ×4 (05:40→22:04)
[2024-09-02] MEDS: IBUPROFEN IV 800 MG/200 ML 800 MG/200 ML BAG 350 MG IVPB (06:19)
[2024-09-02 06:34] LABS: Hematocrit 29.6 % (37.0-47.0); Hemoglobin 8.8 g/dL (12.0-15.0); Mean Corpuscular HGB Conc 29.7 g/dl (32-36); Mean Corpuscular Hemoglobin 27.4 pg (26-34); Mean Corpuscular Volume 92.2 fl (80-100); Mean Platelet Volume 10.3 fl (7.4-10.4); Platelet Count Result 377 k/mm3 (150-375); Red Blood Count 3.21 M/mm3 (4.2-5.4); Red Cell Distribution Width 14.2 % (11.5-14.5); White Blood Count 7.2 K/mm3 (4.5-10.0)
[2024-09-02 06:44] LABS: Anion Gap 6 mmol/L (4-12); Blood Urea Nitrogen 9 mg/dL (7-17); Carbon Dioxide 24 mmol/L (22-30); Chloride 106 mmol/L (98-107); Estimated CRCL calculation 90 ml/min; Estimated Glomerular Filt Rate > 60; Glucose 96 mg/dL (65-110); Potassium 3.8 mmol/L (3.4-5.0); Sodium 136 mmol/L (137-145)
--- NOTE | 2024-09-02 07:36 | PC.NURSE ---
call received this morning from the imaging department. the caller informed me that when she logged in to her computer for the day, she could see inpatient orders for this patient Libby Maldonado, but under the wrong V number. I reviewed this patient's past visits to find her other V #, and found that roughly 30 orders had been entered for this patient, but under the wrong V number, so I was unable to see these orders all night. This RN just became aware of orders for labs, one time Lovenox injection, blood cultures, CT guided drain, low fiber diet, and medications at the time of the phone call which was right before 0700 on 09/02/24. I transcribed the orders from the incorrect chart to the correct one as they were entered by the physician.
--- NOTE | 2024-09-02 07:55 | PC.NURSE ---
order to give lovenox this am. typically lovenox is not given before a procedure. called cat scan at 0753 to double check and cat scan stated to hold lovenox before pt procedure today.
--- NOTE | 2024-09-02 08:57 | WPDMODSED ---
Moderate Sedation Note-Pt Data Patient Data Diagnosis: Perisigmoid abscess. Present Complaint: Perisigmoid abscess. Procedure to be performed/Plan: CT-guided perisigmoid abscess drainage. Allergies Allergy/AdvReac Type Severity Reaction Status Date / Time No Known Allergies Allergy Verified 09/01/24 09:15 Home Medications Medication Instructions Recorded Confirmed Type acetaminophen 500 mg tablet 1,000 mg PO Q6H 09/01/24 09/01/24 History Current Medications: Active Medications Acetaminophen (Acetaminophen 500 Mg Tablet) 500 mg PO Q6H PRN PRN Reason: Mild Pain (1-3) or Fever Hydrocodone Bitart/Acetaminophen (Hydrocodone/Acetaminophen (*Crx) 7.5-325 Mg Tablet) 1 tab PO Q6H PRN PRN Reason: Pain Rated 7-10 Enoxaparin Sodium (Enoxaparin 40 Mg/0.4 Ml Syringe) 40 mg SUB-Q DAILY FIDELIA Famotidine (Famotidine 20 Mg/2 Ml Vial) 20 mg IV PUSH Q12HR FIDELIA Last Admin: 09/01/24 23:17 Dose: 20 mg Hydromorphone HCl (Hydromorphone Hcl Inj (*Crx) 1 Mg/Ml Syr) 1 mg IV PUSH Q2H PRN PRN Reason: Breakthrough Pain Rated 7-10 or NPO Last Admin: 09/01/24 23:10 Dose: 1 mg Hydromorphone HCl (Hydromorphone Hcl Inj (*Crx) 1 Mg/Ml Syr) 0.5 mg IV PUSH Q2H PRN PRN Reason: Breakthrough Pain Rated 4-6 or NPO Last Admin: 09/02/24 05:39 Dose: 0.5 mg Ibuprofen (Caldolor 800 Mg/200 Ml) 800 mg in 200 mls @ 400 mls/hr IVPB Q6H PRN PRN Reason: Breakthrough Pain Rated 1-3 or NPO Last Admin: 09/02/24 06:19 Dose: 350 mls/hr Lactated Ringer's (Lr - Lactated Ringers Iv) 1,000 mls @ 100 mls/hr IV CONT .Q10H FIDELIA Last Infusion: 09/02/24 06:19 Dose: 100 mls/hr Piperacillin/Tazobactam/Dextrose (Zosyn 3.375 Gm/Ns 50 Ml) 3.375 gm in 50 mls @ 100 mls/hr IVPB Q6H [facility] Last Infusion: 09/02/24 06:08 Dose: Infused Miscellaneous Information (Duplicate Prn Pain Scale With Oral Percocet Of Pain 7-10, Please Clarify) 1 each XX CLARIFY [facility] Stop: 10/02/24 00:00 Naloxone HCl (Naloxone Hcl 0.4 Mg/Ml Vial) 0.1 mg IV PUSH Q2M PRN PRN Reason: Opiate Reversal Ondansetron HCl (Ondansetron Inj 4 Mg/2 Ml Vial) 4 mg IV PUSH Q4H PRN PRN Reason: Nausea And Vomiting Last Admin: 09/02/24 05:40 Dose: 4 mg Oxycodone/Acetaminophen (Oxycodone/Acetaminophen (*Crx) 5-325 Mg Tablet) 1 tablet PO Q4H PRN PRN Reason: Pain Rated 4-6 Oxycodone/Acetaminophen (Oxycodone/Acetaminophen (*Crx) 10-325 Mg Tablet) 1 tab PO Q6H PRN PRN Reason: Pain Rated 7-10 Sedation/Anesthesia: No previous sedation/anesthesia problems (including family history). [facility] Past Medical History Medical History Anxiety Asthma in childhood, resolved Surgical History Surgical History H/O gynecological procedure Mirena IUD insertion Social History Social History Years smoked: 15 Smoking status: Current every day smoker Tobacco type: cigarettes Second hand tobacco smoke exposure: Yes Alcohol intake: never Substance use: never Substance use type: marijuana and other Other substance usage details: Vape Do You Feel Safe in your Home?: Yes Lack of Transportation: No Lack of Food: Never True Current Housing: I Have Housing Concerned About Future Housing: No Difficulty Paying Gas/Electric Bills: YES Difficulty Paying for Meds: No Currently Unemployed: YES Education: High School Diploma/GED Difficulty w/ Childcare or Family Care: No Occupation/Education: occupation Gender identity (if verbalized by the patient): Female Spiritual care concerns: No Mod Sed Physical Exam Physical Exam Pre Procedural Exam: Normal: Lungs, Heart Rate and Heart Rhythm and Variation: Appearance (Agitated.) and Abdomen (Left abdominal tenderness.) Hours since solid foods: 12 Hours since liquid intake: 12 Mallampati Classification: class II Internal Medicine - PN: Obj Da Vital Signs V
[2024-09-02 09:05] LABS: Prothrombin Time 13.5 Seconds (11.1-14.7)
[2024-09-02 09:06] LABS: Partial Thromboplastin Time 28.7 Seconds (22.3-36.8)
--- NOTE | 2024-09-02 09:17 | PM.IMHP ---
H&P: HPI History of Present Illness Date/Time: 09/02/24 09:17 Chief Complaint: Left lower quadrant pain Narrative: Patient is a 33-year-old woman who was in the hospital August 07 through August 13, 2024 for diverticulitis with small abscess. She was treated with IV antibiotics and discharged on 1 week of Levaquin and metronidazole. She finished these antibiotics but continues to have left lower quadrant pain. It waxes and wanes but is much worse with a bowel movement. She is quite tender there. In the hospital, she was noted to have an inflammatory mass in the left lower quadrant. She was also having some pain in the right lower quadrant. Bowel movements have been infrequent and her last previous bowel movement was 4 days ago. As mentioned, bowel movements are painful and this pain will typically last several hours afterward. She also has noted nausea and fatigue. A CBC, BMP, and CT scan of the abdomen and pelvis with contrast were ordered. CBC showed her to be anemic but she had a normal white blood cell count and no left shift. BMP was also normal. CT scan of the abdomen and pelvis showed that the left lower quadrant abscess had increased in size and was now a 5 cm abscess. After discussing this with Dr. Butcher, she is admitted now for IV antibiotics and percutaneous image guided drainage of the abscess to be done 09/02/2024. Review of Systems Review of Systems: All systems reviewed & are unremarkable except as noted in HPI and below (HPI and those items noted below) Constitutional: Constitutional: Reports as per HPI, Denies chills, Reports fatigue, Denies fever(s), Reports lethargy and Denies night sweats Cardiovascular: Cardiovascular: Denies chest pain, Denies diaphoresis, Denies dyspnea and Denies paroxysmal nocturnal dyspnea Respiratory: Respiratory: Denies chest congestion, Denies cough and Denies dyspnea Gastrointestinal: Gastrointestinal: Reports as per HPI, Reports constipation and Reports other (dyschezia) Integumentary/Breasts: Skin/Breast: Denies lesions and Denies rash PMFSH Past Medical History Medical History Anxiety Asthma in childhood, resolved Surgical History Surgical History H/O gynecological procedure Mirena IUD insertion Social History Social History Years smoked: 15 Smoking status: Current every day smoker Tobacco type: cigarettes Second hand tobacco smoke exposure: Yes Alcohol intake: never Substance use: never Substance use type: marijuana and other Other substance usage details: Vape Do You Feel Safe in your Home?: Yes Lack of Transportation: No Lack of Food: Never True Current Housing: I Have Housing Concerned About Future Housing: No Difficulty Paying Gas/Electric Bills: YES Difficulty Paying for Meds: No Currently Unemployed: YES Education: High School Diploma/GED Difficulty w/ Childcare or Family Care: No Occupation/Education: occupation Gender identity (if verbalized by the patient): Female Spiritual care concerns: No Meds Home Medications and Allergies Home Medications Medication Instructions Recorded Confirmed Type acetaminophen 500 mg tablet 1,000 mg PO Q6H 09/01/24 09/01/24 History Allergies Allergy/AdvReac Type Severity Reaction Status Date / Time No Known Allergies Allergy Verified 09/01/24 09:15 Vital Signs Vital Signs - 24 hr 09/01/24 21:39 09/01/24 21:54 09/01/24 22:09 Temperature 37.7 C H 37.2 C 37.3 C Pulse Rate 89 86 78 Respiratory Rate 14 14 14 Blood Pressure 113/63 106/60 103/69 Pulse Oximetry 98 100 98 Oxygen Delivery 09/01/24 21:37 09/02/24 03:20 09/02/24 07:39 Temperature 37.2 C 35.9 C L Pulse Rate 79 73 Respiratory Rate 16 18 Blood Pressure 110/64 102/60 Pulse Oximetry 98 98 Oxygen Delivery Room Air
--- NOTE | 2024-09-02 10:10 | SUR.PHASEII ---
1010-Pt returned to bed after Abdominal CT Drain placement. Call light in reach. Vitals stable. Pt awake without s/s distress. Abd drain compressed and in place. Pt does report continued abd pain and requests pain medications. Verbal bedside report with nurse Sera Roles, RN
[2024-09-02] MEDS: ENOXAPARIN 40 MG/0.4 ML SYRINGE SUB-Q (10:18)
[2024-09-02] MEDS: FAMOTIDINE 20 MG/2 ML VIAL IV PUSH ×2 (10:18→20:25)
[2024-09-02] MEDS: HYDROmorphone HCL INJ (*CRX) 1 MG/ML SYR IV PUSH ×3 (10:18→22:04)
--- NOTE | 2024-09-02 17:04 | PC.NURSE ---
at 1600 pt stated that she was in significant pain and felt nauseated so this RN pulled pain med and zofran. After pulling up pain med in syringe, this nurse thought to check last B/P. Pt was found to have low B/P so IV pain medication was contraindicated. Zofran was given to help nausea and pain medication was wasted. Pt was given ice tp put on abdomenand a cool rag along with a pillow to help splint abdomen. Asked aid to recheck bloodpressure and new b/p was better 95/62.
[2024-09-02] MEDS: oxyCODONE/ACETAMINOPHEN (*CRX) 10-325 MG TABLET 1 TAB PO ×2 (18:00→23:35)
[2024-09-02] MEDS: LACTATED RINGERS 1,000 ML 100 ML IV CONT (20:35)
[2024-09-03 03:54] VITALS: BP 98/58; PULSE 84; RESP 14; TEMP 36.9; O2SAT 94
[2024-09-03] MEDS: ONDANSETRON INJ 4 MG/2 ML VIAL IV PUSH ×3 (04:20→23:04)
[2024-09-03] MEDS: HYDROmorphone HCL INJ (*CRX) 1 MG/ML SYR IV PUSH ×2 (04:21→20:56)
[2024-09-03] MEDS: PIPERACILLN/TAZ 3.375GM/NS50ML 3.375 GM/50 ML BAG IVPB ×4 (06:12→23:03)
[2024-09-03] MEDS: oxyCODONE/ACETAMINOPHEN (*CRX) 10-325 MG TABLET 1 TAB PO ×3 (08:30→23:18)
[2024-09-03] MEDS: FAMOTIDINE 20 MG/2 ML VIAL IV PUSH (08:31)
[2024-09-03] MEDS: IBUPROFEN IV 800 MG/200 ML 800 MG/200 ML BAG 350 MG IVPB (10:18)
--- NOTE | 2024-09-03 11:28 | PM.PNGS ---
Progress Note: A&P Assessment and Plan (1) Diverticulitis of large intestine with abscess: Qualifiers: Diverticulitis bleeding: without bleeding Qualified Code(s): K57.20 - Diverticulitis of large intestine with perforation and abscess without bleeding Code(s): K57.20 - Diverticulitis of large intestine with perforation and abscess without bleeding Status: Acute Assessment and Plan: Drainage looks bloody but purulent as well. No cultures were done. Continue drain and monitor output daily. Patient having trouble sleeping, will order trazodone. (2) Anemia: Qualifiers: Other causes of anemia: chronic disease, other Code(s): D64.9 - Anemia, unspecified Status: Chronic Assessment and Plan: H&H slightly lower today, probably due to dilutional affects from IV fluids. No sign of active bleeding. Continue to follow (3) Dyschezia: Code(s): K59.00 - Constipation, unspecified Status: Acute Assessment and Plan: Will start Metamucil and mineral oil as well as Senokot at bedtime. Most likely the dyschezia and constipation are related to her sigmoid diverticulitis with abscess. Hopefully drainage of the abscess will relieve. (4) Constipation: Qualifiers: Constipation type: other constipation type Qualified Code(s): K59.09 - Other constipation Code(s): K59.00 - Constipation, unspecified Status: Acute Subjective Subjective Date/Time Seen: 09/03/24 11:28 Patient reports: still having pain (Drain site painful, can't sleep), tolerating a regular diet, voiding w/o difficulty, no bowel movement and afebrile Interval history: Complaints are pain at the drain site, insomnia, and no bowel movement for at least 5 days. Review of Systems Review of Systems: All systems reviewed & are unremarkable except as noted in HPI and below (HPI) Exam Const: General: cooperative, alert, awake, tired appearing and thin; No confusion GI: Inspection: no edema, non-distended and scaphoid GI Palp: Yes Soft to palpation, Yes Tenderness to palpation present (GI) (Extremely tender left lower quadrant at drain site), No Hepatosplenomegaly present, No Hernia present and No Palpable mass present Objective Data Vital Signs Vital Signs: Vital Signs - 24 hr 09/02/24 15:39 09/02/24 19:39 09/02/24 23:36 Temperature 36.5 C 37.2 C 37.1 C Pulse Rate 79 90 87 Respiratory Rate 16 22 H 18 Blood Pressure 87/51 L 108/56 L 103/63 Pulse Oximetry 95 96 97 09/03/24 03:54 Temperature 36.9 C Pulse Rate 84 Respiratory Rate 14 Blood Pressure 98/58 L Pulse Oximetry 94 Intake/Output Intake/Output: Intake & Output 08/31/24 09/01/24 09/02/24 09/03/24 23:59 23:59 23:59 23:59 Intake Total 50 1910.0 920 Output Total 5 Balance 50 1905.0 920 Meds/Results Medications: Active Medications Generic Name Dose Route Start Last Admin Trade Name Freq PRN Reason Stop Dose Admin Acetaminophen 500 mg 09/02/24 07:10 Acetaminophen 500 Mg Tablet PO Q6H PRN Mild Pain (1-3) or Fever Hydrocodone Bitart/Acetaminophen 1 tab 09/02/24 07:13 Hydrocodone/Acetaminophen (*Crx) 7.5-325 Mg Tablet PO Q6H PRN Pain Rated 7-10 Enoxaparin Sodium 40 mg 09/02/24 09:00 09/03/24 08:33 Enoxaparin 40 Mg/0.4 Ml Syringe SUB-Q Not Given DAILY FIDELIA Famotidine 20 mg 09/03/24 21:00 Famotidine 20 Mg Tablet PO Q12HR FIDELIA Hydromorphone HCl 1 mg 09/01/24 21:54 09/03/24 04:21 Hydromorphone Hcl Inj (*Crx) 1 Mg/Ml Syr IV PUSH 1 mg Q2H PRN Administration Breakthrough Pain Rated 7-10 or NPO Hydromorphone HCl 0.5 mg 09/01/24 21:54 09/02/24 05:39 Hydromorphone Hcl Inj (*Crx) 1 Mg/Ml Syr IV PUSH 0.5 mg Q2H PRN Administration Breakthrough Pain Rated 4-6 or NPO Ibuprofen 800 mg in 200 mls @ 400 mls/hr 09/01/24 21:54 09/03/24 10:18 Caldolor 800 Mg/200 Ml IVPB 350 mls/hr Q6H PRN Administration Br
[2024-09-03 14:00] VITALS: BP 106/70; PULSE 86; RESP 16; TEMP 36; O2SAT 100
[2024-09-03] MEDS: PSYLLIUM POWDER PACKET 1 PACKET PO (16:38)
[2024-09-03] MEDS: MINERAL OIL 30 ML UDC 15 ML PO (16:38)
[2024-09-03] MEDS: LACTATED RINGERS 1,000 ML 100 ML IV CONT ×2 (19:19→23:18)
[2024-09-03 20:16] VITALS: BP 116/72; PULSE 78; RESP 16; TEMP 36.9; O2SAT 98
[2024-09-04 05:26] VITALS: BP 107/65; PULSE 85; RESP 14; TEMP 36.9; O2SAT 99
[2024-09-04] MEDS: PIPERACILLN/TAZ 3.375GM/NS50ML 3.375 GM/50 ML BAG IVPB ×4 (06:08→23:28)
[2024-09-04] MEDS: oxyCODONE/ACETAMINOPHEN (*CRX) 5-325 MG TABLET 1 TABLET PO ×5 (06:14→23:38)
[2024-09-04] MEDS: ONDANSETRON INJ 4 MG/2 ML VIAL IV PUSH ×2 (06:19→23:38)
[2024-09-04 07:00] LABS: Hematocrit 28.7 % (37.0-47.0); Mean Corpuscular HGB Conc 31.4 g/dl (32-36); Mean Corpuscular Hemoglobin 27.5 pg (26-34); Mean Corpuscular Volume 87.8 fl (80-100); Mean Platelet Volume 10.6 fl (7.4-10.4); Platelet Count Result 378 k/mm3 (150-375); Red Blood Count 3.27 M/mm3 (4.2-5.4); Red Cell Distribution Width 14.4 % (11.5-14.5); White Blood Count 14.3 K/mm3 (4.5-10.0)
[2024-09-04 07:11] LABS: Anion Gap 6 mmol/L (4-12); Blood Urea Nitrogen 2 mg/dL (7-17); Calcium 8.6 mg/dL (8.4-10.2); Carbon Dioxide 28 mmol/L (22-30); Chloride 101 mmol/L (98-107); Estimated CRCL calculation 90 ml/min; Estimated Glomerular Filt Rate > 60; Glucose 113 mg/dL (65-110); Potassium 3.9 mmol/L (3.4-5.0); Sodium 135 mmol/L (137-145)
[2024-09-04] MEDS: FAMOTIDINE 20 MG TABLET PO ×2 (08:20→20:50)
[2024-09-04] MEDS: PSYLLIUM POWDER PACKET 1 PACKET PO ×2 (08:24→20:51)
[2024-09-04] MEDS: LACTATED RINGERS 1,000 ML 80 ML IV CONT ×2 (10:49→23:29)
[2024-09-04] MEDS: MINERAL OIL 30 ML UDC 15 ML PO ×2 (10:50→23:27)
--- NOTE | 2024-09-04 12:48 | PM.PNGS ---
Progress Note: A&P Assessment and Plan (1) Diverticulitis of large intestine with abscess: Qualifiers: Diverticulitis bleeding: without bleeding Qualified Code(s): K57.20 - Diverticulitis of large intestine with perforation and abscess without bleeding Code(s): K57.20 - Diverticulitis of large intestine with perforation and abscess without bleeding Status: Acute Assessment and Plan: Slight improvement in pain, but still very tender in the suprapubic area and LLQ. WBC count went up to 14,300 today. Will repeat labs again tomorrow. May need to consider repeat CT if leukocytosis worsens. Continue to monitor the percutaneous drain. Continue IV antibiotics. No cultures done with percutaneous drainage. (2) Anemia: Qualifiers: Other causes of anemia: chronic disease, other Code(s): D64.9 - Anemia, unspecified Status: Chronic Assessment and Plan: H&H stable today. No sign of active bleeding. Continue to follow (3) Dyschezia: Code(s): K59.00 - Constipation, unspecified Status: Acute Assessment and Plan: Still no BM. Continue Metamucil and mineral oil as well as Senokot at bedtime. (4) Constipation: Qualifiers: Constipation type: other constipation type Qualified Code(s): K59.09 - Other constipation Code(s): K59.00 - Constipation, unspecified Status: Acute Plan I have discussed the patient's case and plan of care with Dr. Vences. Subjective Subjective Date/Time Seen: 09/04/24 12:48 Patient reports: feels better, pain is less, tolerating a regular diet, flatus, no bowel movement and afebrile Interval history: Patient reports mild improvement in her abdominal pain. Still having sharp stabbing pain in the LLQ with certain movements. The pain is located near the percutaneous drain. She reports having a lot of nausea last night and increased pain, which required IV Dilaudid. Today, she is feeling better than last night and no nausea with breakfast. Exam Const: General: comfortable and awake Orientation/consciousness: patient oriented x3 GI: Inspection: non-distended and other (LLQ perc drain with rust-colored drainage) GI Palp: Yes Soft to palpation, Yes Tenderness to palpation present (GI) (still very tender in the suprapubic area and LLQ, mild tenderness in RLQ), Yes Guarding due to palpation present (GI) (voluntary guarding in LLQ) and No Rebound tenderness present Auscultation: normal bowel sounds Objective Data Vital Signs Vital Signs: Vital Signs - 24 hr 09/03/24 14:00 09/03/24 20:16 09/04/24 05:26 Temperature 96.8 F L 98.5 F 98.5 F Pulse Rate 86 78 85 Respiratory Rate 16 16 14 Blood Pressure 106/70 116/72 107/65 Pulse Oximetry 100 98 99 Intake/Output Intake/Output: Intake & Output 09/01/24 09/02/24 09/03/24 09/04/24 23:59 23:59 23:59 23:59 Intake Total 50 1910.0 2668.3 0 Output Total 5 10 Balance 50 1905.0 2668.3 2039 Meds/Results Medications: Active Medications Generic Name Dose Route Start Last Admin Trade Name Freq PRN Reason Stop Dose Admin Acetaminophen 500 mg 09/02/24 07:10 Acetaminophen 500 Mg Tablet PO Q6H PRN Mild Pain (1-3) or Fever Enoxaparin Sodium 40 mg 09/02/24 09:00 09/04/24 08:19 Enoxaparin 40 Mg/0.4 Ml Syringe SUB-Q Not Given DAILY FIDELIA Famotidine 20 mg 09/03/24 21:00 09/04/24 08:20 Famotidine 20 Mg Tablet PO 20 mg Q12HR FIDELIA Administration Hydromorphone HCl 1 mg 09/01/24 21:54 09/03/24 20:56 Hydromorphone Hcl Inj (*Crx) 1 Mg/Ml Syr IV PUSH 1 mg Q2H PRN Administration Breakthrough Pain Rated 7-10 or NPO Hydromorphone HCl 0.5 mg 09/01/24 21:54 09/02/24 05:39 Hydromorphone Hcl Inj (*Crx) 1 Mg/Ml Syr IV PUSH 0.5 mg Q2H PRN Administration Breakthrough Pain Rated 4-6 or NPO Ibuprofen 800 mg in 200 mls @ 400 mls/hr 09/01/24 21:54 09/03/24 10:18 Caldolor 800 Mg/200 Ml IVPB 350 mls/hr Q6H
[2024-09-04 14:00] VITALS: BP 100/60; PULSE 88; RESP 22; TEMP 37.2; O2SAT 98
[2024-09-04 18:34] VITALS: BP 111/57
[2024-09-04 19:40] VITALS: BP 102/62; PULSE 88; RESP 18; TEMP 37.6; O2SAT 96
[2024-09-04] MEDS: SENNA/DOCUSATE SODIUM TABLET 2 TAB PO (20:50)
[2024-09-04] MEDS: traZODone HCL 50 MG TABLET PO (23:38)
[2024-09-05 05:25] VITALS: BP 105/65; PULSE 92; RESP 18; TEMP 37.4; O2SAT 97
[2024-09-05] MEDS: oxyCODONE/ACETAMINOPHEN (*CRX) 10-325 MG TABLET 1 TAB PO (05:45)
[2024-09-05] MEDS: PIPERACILLN/TAZ 3.375GM/NS50ML 3.375 GM/50 ML BAG IVPB (05:47)
[2024-09-05 06:46] LABS: Hematocrit 26.6 % (37.0-47.0); Hemoglobin 8.5 g/dL (12.0-15.0); Mean Corpuscular Hemoglobin 28.1 pg (26-34); Mean Corpuscular Volume 87.8 fl (80-100); Mean Platelet Volume 9.6 fl (7.4-10.4); Platelet Count Result 325 k/mm3 (150-375); Red Blood Count 3.03 M/mm3 (4.2-5.4); Red Cell Distribution Width 14.4 % (11.5-14.5); White Blood Count 10.3 K/mm3 (4.5-10.0)
[2024-09-05 06:59] LABS: Anion Gap 9 mmol/L (4-12); Blood Urea Nitrogen 4 mg/dL (7-17); Calcium 8.3 mg/dL (8.4-10.2); Carbon Dioxide 25 mmol/L (22-30); Chloride 102 mmol/L (98-107); Estimated CRCL calculation 90 ml/min; Estimated Glomerular Filt Rate > 60; Glucose 89 mg/dL (65-110); Potassium 3.8 mmol/L (3.4-5.0); Sodium 136 mmol/L (137-145)
[2024-09-05] MEDS: ONDANSETRON INJ 4 MG/2 ML VIAL IV PUSH (07:35)
[2024-09-05] MEDS: oxyCODONE/ACETAMINOPHEN (*CRX) 5-325 MG TABLET 1 TABLET PO (10:01)
[2024-09-05] MEDS: FAMOTIDINE 20 MG TABLET PO (10:02)
--- NOTE | 2024-09-05 10:32 | PM.DS ---
DS: Admitting Diagnosis Discharge Date 09/05/24 Admitting Diagnosis Complicated diverticulitis with abscess DS: Discharge Diagnosis Discharge Diagnosis (1) Diverticulitis of large intestine with abscess: Qualifiers: Diverticulitis bleeding: without bleeding Qualified Code(s): K57.20 - Diverticulitis of large intestine with perforation and abscess without bleeding Code(s): K57.20 - Diverticulitis of large intestine with perforation and abscess without bleeding Status: Acute Assessment and Plan: status post perc drainage, home with instructions for drain care, prescriptions for Augmentin and Percocet, follow-up with Dr. Lang 09/11 DS: Summary Hospital Course Reason for hospitalization: complicated diverticulitis with abscess Hospital Course: The patient is a 33-year-old female presenting to the hospital after outpatient CT scan was significant for complicated diverticulitis with abscess. The patient was admitted to the surgical service and started on IV antibiotics. The following day the patient had CT-guided percutaneous drainage of the abscess, please see full procedure note for details of that procedure. Postoperatively, the patient was transferred back to the surgical floor. Over the next few days, the patient slowly improved. At the time of her for discharge, her exam was largely benign and her pain was well controlled with p.o. analgesia. She will be sent home with continued antibiotics, Augmentin, and Percocet. She will be sent home with the drain and instructions for drain care. She will follow up with Dr. Lang on 09/11. Status at Discharge Functional status at discharge: independent ambulation Overall status at discharge: patient is progressing back to baseline Time Spent with Patient Time attestation: Total time spent providing and/or coordinating discharge services: Time spent: Less than 30 minutes Exam Const: General: cooperative, comfortable and no acute distress Resp: Auscultation: clear to auscultation bilaterally Cardio: Rate: regular rate Rhythm: regular rhythm GI: Inspection: normal to inspection, non-distended and no incisions GI Palp: Yes abdominal tenderness, Yes Soft to palpation and Yes Tenderness to palpation present (GI) Other: drain c moderate s/s output DS: Data Data Completed and Pending Labs on day of discharge: Labs from last 24 hours 09/05/24 06:39 WBC 10.3 H RBC 3.03 L Hgb 8.5 L Hct 26.6 L MCV 87.8 MCH 28.1 MCHC 32.0 RDW 14.4 Plt Count 325 MPV 9.6 Sodium 136 L Potassium 3.8 Chloride 102 Carbon Dioxide 25 Anion Gap 9 BUN 4 L Creatinine 0.60 L Estim Creat Clear Calc 90 Estimated GFR > 60 Glucose 89 Calcium 8.3 L Preliminary micro results at discharge 09/02/24 08:34 Blood Culture - Preliminary Blood 09/02/24 08:26 Blood Culture - Preliminary Blood Discharge Plan Discharge Attending physician on discharge: Aguilar Lang Discharging Clinician: Elham Vences Anticipated Discharge Date/Time: 09/05/24 12:00 Patient Disposition: Home, Self-Care Activity: may shower, no straining and as tolerated Diet: low fiber Wound Care Instructions: other - see discharge instructions Discharge Instructions: low-fiber diet after discharge empty drain and record output in mL on a 24 hour basis. Bring the record of daily drain outputs in mL to office visit with Dr. Lang next week. Okay to bathe and shower stairs are okay take antibiotics until they are gone call for fever, vomiting, severe pain, drain miss function, or other significant change in condition. Patient Instructions: Antibiotic Form Stand Alone Forms: General Discharge Information Follow-up/Referrals: Aguilar Lang MD [Physician] - 09/11/24 ( Call Dr. Santos office to make appointment) Discharge Medications: New oxycodone-acetaminophen 5-325 mg tablet 0.5 - 1 tablet PO Q6H PRN (Reason: claudette
[2024-09-05] MEDS: ONDANSETRON HCL ODT 4 MG TABLET PO (12:15)
== END 2024-09-05 12:45 | disposition home or self-care (01) | DRG 244 ==
PROVIDERS: Radiology Diagnostic Radiology; Surgery; Admitting Provider Surgery; Visit Provider Surgery
PROC: 0D9N30Z Drainage of Sigmoid Colon with Drainage Device, Percutaneous Approach (ICD-10-PCS; CPT 75989; principal; 2024-09-02 08:30)
DX: K57.20 Diverticulitis of large intestine with perforation and abscess without bleeding (principal); K59.09 Other constipation; D63.8 Anemia in other chronic diseases classified elsewhere; F17.210 Nicotine dependence, cigarettes, uncomplicated
CPT/HCPCS: 36415; 74177; 75989; 80048; 85025; 85027; 85610; 85730; 87040; A9270; C1729; C1769; J1171; J1650; J1741; J2250; J2405; J2543; J3010; J7040; J7120; Q9967

== ENCOUNTER 2024-09-07 18:02 | Inpatient (IN) | payer OTHER, SELFPAY ==
--- NOTE | ~2024-09-07 | CT_ITS ---
EXAMINATION: CT abdomen pelvis w con DATE: 09/10/2024 08:50 INDICATION: Perisigmoid abscess with drain TECHNIQUE: Computed tomography (CT) of the abdomen and pelvis was performed with 100 mL Omnipaque-350 intravenous contrast. Automated exposure control and iterative reconstruction technique were employe d. The dose-length product was 219.38 mGy-cm. COMPARISON: 09/07/2024 FINDINGS: Lung bases are clear. Heart size is normal. No pericardial or pleural effusion. Calcified hepatic nod ule consistent with old granulomatous disease. The gallbladder is dilated to 4.7 cm but without evide nt gallbladder wall thickening or pericholecystic inflammatory stranding to suggest acute cholecystit is in this likely due to metastasis date. There is a 3 mm gallstone dependently near the neck of the gallbladder. Spleen, pancreas, bilateral adrenal glands and kidneys are normal. There has been interv al upsizing of a percutaneous abscess drainage catheter located within a 2.2 x 1.9 cm fluid attenuati on abscess cavity in the left lower quadrant. There is a small amount of gas and fluid scattered thro ughout smaller extension of the abscess within an approximately 5.0 x 3.7 cm region of phlegmonous ch abdelrahman which extends into the overlying left anterior abdominal wall musculature. There is also scatter ed gas in the overlying subcutaneous fat. No other abscesses identified. Small amount of nonorganized appearing ascites in the deep pelvis without evident loculation or organized peripheral enhancing wa ll. There is wall thickening and focal narrowing of the lumen of the proximal sigmoid colon likely re lated to diverticulitis and suggesting possible stricture. Fluid is seen throughout the more proximal distal colon consistent with diarrhea. No dilated small bowel to suggest obstruction. Bladder is dec ompressed. T-shaped IUD in expected position within the anteverted uterus. Unchanged 1.9 cm right adn exal cyst. No pathologically enlarged abdominal or pelvic lymphadenopathy. Bones are unremarkable. IMPRESSION: 1. Interval upsizing of a left lower quadrant percutaneous abscess drain within a residual 2.2 x 1.9 cm abscess cavity located within a larger region of phlegmonous change with smaller of a communicatin g extension of the abscess. No other drainable abscess is identified. 2. Small amount of likely reactive nonorganized appearing free fluid in the deep pelvis. 3. Focal wall thickening and narrowing of the lumen of the proximal sigmoid colon potentially represe nting a stricture related to diverticulitis which is located at the site of a previous identified haile ining sinus tract evident at the time of the drainage catheter exchange. Reviewed, dictated and finalized at location A. IMPRESSION: 1. Interval upsizing of a left lower quadrant percutaneous abscess drain within a residual 2.2 x 1.9 cm abscess cavity located within a larger region of phleg monous change with smaller of a communicating extension of the abscess. No othe r drainable abscess is identified. 2. Small amount of likely reactive nonorganized appearing free fluid in the kaylin p pelvis. 3. Focal wall thickening and narrowing of the lumen of the proximal sigmoid col on potentially representing a stricture related to diverticulitis which is loca oliva at the site of a previous identified draining sinus tract evident at the ti me of the drainage catheter exchange.
--- NOTE | ~2024-09-07 | CT_ITS ---
EXAMINATION: CT abdomen pelvis wo con DATE: 09/19/2024 09:31 INDICATION: Leukocytosis after sigmoidectomy. TECHNIQUE: Computed tomography (CT) of the abdomen and pelvis was performed without intravenous contr ast. Automated exposure control and iterative reconstruction technique were employed. The dose-length product was 186.39 mGy-cm. COMPARISON: CT abdomen and pelvis 09/10/2024 FINDINGS: The visualized portions of the lung bases are clear without pneumonia or pleural effusion. The heart size is normal. No pericardial effusion. Calcifications in the liver consistent with old gr anulomatous disease. The gallbladder, spleen, pancreas, adrenal glands, and kidneys are normal. There is no urolithiasis. There is an intrauterine device in expected position. There are no dilated loops of bowel. The appendix is not visualized. There is fat stranding in the left abdomen. There is a flu id collection in left paracolic gutter measuring 6.6 x 1.4 x 2.6 cm. Abdominal wall incisions are not ed. There is subcutaneous gas in left anterior abdominal wall. There are no pathologically enlarged l ymph nodes. There is trace pelvic ascites. The bones are unremarkable. IMPRESSION: 1. 6.6 x 1.4 x 2.6 cm postsurgical fluid collection in the left paracolic gutter suspicious for absce ss. Reviewed, dictated and finalized at location A. IMPRESSION: 1. 6.6 x 1.4 x 2.6 cm postsurgical fluid collection in the left paracolic gutte r suspicious for abscess.
--- NOTE | ~2024-09-07 | XR_ITS ---
EXAMINATION: XR chest 2V DATE: 09/19/2024 09:36 INDICATION: Postoperative leukocytosis. TECHNIQUE: Frontal and lateral views of the chest were obtained. COMPARISON: Chest 2 views 12/28/2017 FINDINGS: There is no pneumonia, pleural effusion, or pneumothorax. The heart size is normal. IMPRESSION: 1. No acute cardiopulmonary disease. Reviewed, dictated and finalized at location A.
--- NOTE | ~2024-09-07 | CT_ITS ---
EXAMINATION: CT guide absc cath placement DATE: 09/08/2024 13:21 INDICATION: Left lower quadrant abscess for perforated diverticulitis with feculent drainage extendin g along the catheter tract external to the catheter. Request for drainage catheter upsizing. TECHNIQUE: The procedure including the risks and benefits was discussed with the patient. Risks discu ssed included bleeding and infection. The patient understood the risks and benefits and agreed to pro ceed. The patient was confirmed to be receiving appropriate antibiotic coverage. The skin existing p ercutaneous drainage catheter and surrounding skin in the left lower quadrant were prepped and draped in usual sterile fashion. Anesthetic was administered with 1% lidocaine subcutaneously. 5 mL 1% lid ocaine was also injected through the catheter. Moderate sedation was achieved with 2 mg Versed IV and 125 mcg fentanyl IV. The existing catheter was cut and a J-wire advanced through the catheter into t he abscess cavity with position confirmed by CT. The prior catheter was removed over the wire and uti lizing Seldinger technique the tract was dilated to 14 [place]. Attempt was made to place a 14 [place] catheter over the loop was unable to be appropriately formed. A 12 [place] drainage catheter was then placed over the wire with position confirmed by CT. The pigtail tip was formed and locked. There was spontaneous drainage of a significant amount of purulent/feculent fluid along the catheter tract duri ng dilation of the tract. 5 mL of a 1:10 dilution of Omnipaque-350 water soluble contrast was injecte d through the catheter to assess for the size of the residual abscess cavity. A 8 Fr catheter was ins erted into the peritoneal fluid collection by trocar technique. The catheter was stitched to the skin with suture. Antibiotic ointment and a sterile dressing were applied. An additional adhesive fixatio n device was applied to the skin. The catheter was attached to suction drainage and was draining smal l amount of bloody purulent fluid at the conclusion of the procedure. There were no immediate complic ations. The dose-length product was 270.86 mGy-cm. FINDINGS: CT images demonstrate the catheter within the left lower quadrant abscess cavity. The injec oliva contrast demonstrates the catheter within the decompressed abscess cavity at the conclusion of th e procedure. There was extension of contrast across a small fissures communication with the colon wit h small amount of intraluminal contrast seen extending into the distal descending colon. The fistulou s tract is best appreciated on series 9, image 20. IMPRESSION: 1. Successful CT-guided upsizing to 12 [place] of a prior 8.5 [place] left lower quadrant percutaneous abscess drain.. 2. The catheter will be managed by Dr. Vences. 3. Patent fistulous draining tract with small amount of the water-soluble contrast injected into the percutaneous abscess drain extending into the proximal sigmoid colon and refluxing proximally into th e distal descending colon. Reviewed, dictated and finalized at location A. IMPRESSION: 1. Successful CT-guided upsizing to 12 [place] of a prior 8.5 [place] left lower quadrant percutaneous abscess drain.. 2. The catheter will be managed by Dr. Vences. 3. Patent fistulous draining tract with small amount of the water-soluble contr ast injected into the percutaneous abscess drain extending into the proximal si gmoid colon and refluxing proximally into the distal descending colon.
--- NOTE | ~2024-09-07 | CT_ITS ---
CT of the Abdomen and Pelvis: Indication: Diverticulitis Technique: 2.5 mm axial scans were obtained through the abdomen and pelvis following intravenous adm inistration of 100 cc of Omnipaque 350. Dose reduction technique was used on this scan by utilizing a utomated exposure control and iterative reconstruction technique. The dose-length product (DLP) was 2 02.79 mGy-cm. COMPARISON: 09/01/2024 Findings: Scans through the lung bases are unremarkable. The liver, spleen, pancreas, gallbladder, adrenals and kidneys are within normal limits. No evidence of aortic aneurysm. No lymphadenopathy. Wall thickening of the sigmoid colon again present. Status post interval placement of percutaneous dr ingrid catheter within the pericolonic abscess, which currently measures 4.8 x 3.7 cm in size, simila r to prior exam. There is now probable additional extension of abscess into the anterior abdominal wa ll and subcutaneous soft tissues in the left lower quadrant region. There is additional subcutaneous emphysema in the subcutaneous soft tissues in the lower quadrant. There is an additional posterior ex tension of abscess measuring 2.1 cm within the peritoneal cavity (axial image 109), similar to prior exam. There is a peripherally enhancing pelvic abscess in the pelvic cul-de-sac between the lower masood rine segment/cervix and the rectum, measuring up to approximately 7.2 x 2.3 x 1.5 cm in extent (axial image 144 for example). Images through the pelvis were performed. Urinary bladder unremarkable. No other adnexal mass present . IUD in place. Impression: Status post interval placement of percutaneous drainage catheter in the left lower quadrant pericolon ic abscess. The abscess is more extensive as compared to prior exam, now with extension into the ante rior abdominal wall and subcutaneous soft tissues in the left lower quadrant. There is additional str anding subcutaneous emphysema in the left lower quadrant, which could be postprocedural in nature brandyn jignehs additional soft tissue infection. Additional 7.2 x 2.3 x 1.5 cm pelvic abscess in the pelvic cul-de-sac, as detailed above. Persistent underlying wall thickening of the sigmoid colon. Reviewed, dictated and finalized at location M. Impression: Status post interval placement of percutaneous drainage catheter in the left lo wer quadrant pericolonic abscess. The abscess is more extensive as compared to prior exam, now with extension into the anterior abdominal wall and subcutaneou s soft tissues in the left lower quadrant. There is additional stranding subcut aneous emphysema in the left lower quadrant, which could be postprocedural in n ature versus additional soft tissue infection. Additional 7.2 x 2.3 x 1.5 cm pelvic abscess in the pelvic cul-de-sac, as detai led above. Persistent underlying wall thickening of the sigmoid colon.
[2024-09-07 18:05] VITALS: BP 100/61; PULSE 86; RESP 18; TEMP 36.8; O2SAT 100
[2024-09-07 21:02] VITALS: BP 111/69; PULSE 79; RESP 18; O2SAT 100
--- NOTE | 2024-09-07 21:04 | PC.NURSE ---
This RN cleaned up the discharge that is leaking from pt wound vac and placed a towel underneath the wound vac to prevent getting all over pt. Discharge is thick and yellowish/brown in color.
--- NOTE | 2024-09-07 21:45 | ED_ITS ---
HPI - General Adult General Chief complaint: Unspecified Stated complaint: wound vac leaking and pain Time Seen by Provider: 09/07/24 21:05 History of Present Illness HPI narrative: 33-year-old female with a recent hospital visit with complicated diverticulitis with perforation abscess formation. She was admitted to the Surgical Services, started on IV antibiotics and had a drainage placed by IR. Patient postoperatively had some increased white count but improving abdominal examina tion and was discharged home with oral antibiotics and pain control. Patient returns to the ER today as she had a sudden onset worsening pain in her left lower quadrant, purulent drainage and fecal material starting to drain from her abdominal wound. She states that she heard a loud popping sensation and felt significant pain onset. Drainage started shortly thereafter. She has been taking her Percocet at home without any relief of her symptoms. Presents today with subjective fever chills left-sided abdominal pain and fecal material draining from her left-sided wound. No bleeding or dark material drainage. Related Data Home Medications Medication Instructions Recorded Confirmed acetaminophen 500 mg tablet 1,000 mg PO Q6H 09/01/24 09/02/24 Allergies Allergy/AdvReac Type Severity Reaction Status Date / Time No Known Allergies Allergy Verified 09/07/24 18:02 Review of Systems Review of Systems: As reviewed above in HPI COUNT INCLUDES THE [facility] Past Medical History Medical History Anxiety Asthma in childhood, resolved Surgical History Surgical History H/O gynecological procedure Mirena IUD insertion Social History Social History Years smoked: 15 Smoking status: Current every day smoker Tobacco type: cigarettes Second hand tobacco smoke exposure: Yes Alcohol intake: never Substance use: never Substance use type: marijuana and other Other substance usage details: Vape Do You Feel Safe in your Home?: Yes Lack of Transportation: No Lack of Food: Never True Current Housing: I Have Housing Concerned About Future Housing: No Difficulty Paying Gas/Electric Bills: YES Difficulty Paying for Meds: No Currently Unemployed: YES Education: High School Diploma/GED Difficulty w/ Childcare or Family Care: No Occupation/Education: occupation Gender identity (if verbalized by the patient): Female Spiritual care concerns: No Exam Narrative: GENERAL: Uncomfortable appearing but not toxic. Not in any acute distress but painful in appearance. HEAD: [Normocephalic, atraumatic.] EYES: [PERRLA and EOMI.] ENT: Nares clear, no rhinorrhea or epistaxis. Mucous membranes moist. NECK: Supple. CHEST: [Clear to auscultation. No respiratory distress.] HEART: [Regular rate and rhythm]. No murmur heard. [Normal peripheral pulses.] ABDOMEN: [Soft, nondistended], left-sided abdominal wall has purulent, fecal material draining from the left lower quadrant wound where her percutaneous drainage is still attached. The drainage bag itself has similar material but minimal collection. No bleeding evident. Stoma surrounding and has some mild erythema and tenderness but no fluctuance. She is tender to palpation without rigidity or guarding in this area. EXTREMITIES: Normal range of motion. [No edema.] SKIN: Warm, dry, no rash. NEURO: [No focal deficits]. Alert and oriented [x3.] PSYCH: [Normal mood and affect.] Course Vital Signs Vital signs: Vital Signs Temperature 36.8 C 09/07/24 18:05 Pulse Rate 86 09/07/24 18:05 Respiratory Rate 18 09/07/24 18:05 Blood Pressure 100/61 09/07/24 18:05 Pulse Oximetry 100 09/07/24 18:05 Oxygen Delivery Room Air 09/07/24 18:05 Temperature 36.8 C 09/07/24 18:05 Pulse Rate 89 09/07/24 23:36 Respiratory Rate 18 09/07/24 23:36 Blood Pressure 121/78 09/07/24 23:36 Pulse Oximetry 99 09/07/24 23:36 Oxygen Delivery Room Air 09/07/24 18:05 Medical Decision Making MDM Narrative Medical decision making narrative: 33-year-old female presenting to the emergency department with complications from her recent diverticula procedure. She had a complicated diverticulitis with abscess formation and requiring percutaneous drainage of the abscess. She was discharged on antibiotics and pain medications. She presents today with sudden onset worsening pain or left lower quadrant followed by drainage of fecal/purulent material from her abdominal wound in the left side. On examination her IR collection drainage bag is still in place with minimal drainage into the bag with stoma leaking dark brown/green material. Overlying erythema but no skin breakdown. No bleeding. Tender to palpation this area. Hemodynamically she is stable and afebrile. She is in pain and anxious in appearance. IV was established, CBC CMP lipase, lactic acid as CT scan with contrast was obtained. She was given Dilaudid Zofran fluids and Ativan for symptom control. After initial evaluation I called and spoke to the general surgeon to make them aware of patient's presentation here in the emergency department with ongoing workup pending. They did recommend a CT scan and will evaluate and provide recommendations upon imaging reviewed. Patient CT scan was independently reviewed by myself and I do see what appears to be the perforated diverticulitis with what appears to be an abdominal wall abscess forming, there appears to be air tracking in the rectus muscles both medially and laterally from the entry site of the drain. On clinical examination she is draining liquid stool with green tinged material around the drain and very minimal drainage into the collection bag itself. Patient has required multiple rounds of pain medications. Given the concern for abdominal abscess she was started on antibiotics including Zosyn and Flagyl. Blood cultures were obtained. I spoken relayed this information to the general surgeon on-call Dr. Vences. Patient was just discharged from General surgery Service. She will be readmitted to their service at this time and made NPO for potential interventions. Patient was agreeable to the plan of care. Medical Records Medical records reviewed: Yes I reviewed the external patient's medical records. Vital Signs Vital Signs: Vital Signs Temperature 36.8 C 09/07/24 18:05 Pulse Rate 86 09/07/24 18:05 Respiratory Rate 18 09/07/24 18:05 Blood Pressure 100/61 09/07/24 18:05 Pulse Oximetry 100 09/07/24 18:05 Oxygen Delivery Room Air 09/07/24 18:05 Temperature 36.8 C 09/07/24 18:05 Pulse Rate 89 09/07/24 23:36 Respiratory Rate 18 09/07/24 23:36 Blood Pressure 121/78 09/07/24 23:36 Pulse Oximetry 99 09/07/24 23:36 Oxygen Delivery Room Air 09/07/24 18:05 Lab Data Lab results reviewed: Yes I reviewed the patient's lab results. 09/07/24 22:04 09/07/24 22:04 Labs: Lab Results 09/07/24 Range/Units 22:04 WBC 10.4 H (4.5-10.0) K/mm3 RBC 3.88 L (4.2-5.4) M/mm3 Hgb 10.7 L (12.0-15.0) g/dL Hct 33.2 L (37.0-47.0) % MCV 85.6 (80-100) fl MCH 27.6 (26-34) pg MCHC 32.2 (32-36) g/dl RDW 14.3 (11.5-14.5) % Plt Count 464 H (150-375) k/mm3 MPV 9.5 (7.4-10.4) fl Immature Gran % (Auto) 0.3 (0-0.5) % Neut % (Auto) 81.2 H (45.5-73.1) % Lymph % (Auto) 9.7 L (18.3-44.2) % [place] % (Auto) 8.4 (2.6-8.5) % Eos % (Auto) 0.2 (0-4.4) % Baso % (Auto) 0.2 (0.2-1.2) % Lymph # (Auto) 1.01 (0.9-3.2) K/mm3 [place] # (Auto) 0.9 H (0.1-0.6) K/mm3 Eos # (Auto) 0.0 (0-0.3) K/mm3 Baso # (Auto) 0.0 (0.0-0.1) K/mm3 Abs Immat Gran (auto) 0.03 (0.00-0.031) K/mm3 Absolute Neuts (auto) 8.4 H (1.3-6.7) K/mm3 Absolute Nucleated RBC 0.000 (0.0-0.012) K/mm3 Nucleated RBC % 0.0 (0.0-0.2) % PT 14.4 (11.1-14.7) Seconds INR 1.1 APTT 33.3 (22.3-36.8) Seconds Sodium 134 L (137-145) mmol/L Potassium 3.8 (3.4-5.0) mmol/L Chloride 98 (98-107) mmol/L Carbon Dioxide 24 (22-30) mmol/L Anion Gap 12 (4-12) mmol/L BUN 10 D (7-17) mg/dL Creatinine 0.50 L (0.7-1.0) mg/dL Estim Creat Clear Calc 106 ml/min Estimated GFR > 60 (59 - ) Glucose 92 (65-110) mg/dL Lactic Acid 1.3 (0.7-2.0) mmol/L Calcium 9.1 (8.4-10.2) mg/dL Total Bilirubin 0.5 (0.2-1.3) mg/dL AST 19 (14-36) U/L ALT 10 (6-35) U/L Alkaline Phosphatase 74 (38-126) U/L Total Protein 8.0 (6.3-8.2) g/dL Albumin 4.0 (3.5-5.1) g/dL Lipase 15 L (23-300) U/L Imaging Data Attestation: I personally reviewed and interpreted this imaging study as follows: My impression: Previous perforated diverticulitis, drain in place with what appears to be abdominal wall abscess with drainage and gas versus air spreading from the tract of the previously placed drain. Pending full radiology read. Critical Care Time Critical Care Time Critical Care Time: Yes Total Critical Care Time: 35 Discharge Plan Discharge Clinical Impression: Diverticulitis of large intestine with abscess, Abdominal wall abscess Patient Disposition: Still a Patient Condition: Stable Prescriptions: No Action acetaminophen 500 mg tablet 1,000 mg PO Q6H Patient Comments: Patient states that she take 4 to 5 at a time. Education provided. amoxicillin-pot clavulanate 875-125 mg tablet 1 tablet PO Q12H Qty: 10 0RF mineral oil Oil 15 ml PO BID Qty: 473 0RF ketorolac 10 mg tablet 10 mg PO Q6H 4 Days Qty: 16 0RF oxycodone-acetaminophen 5-325 mg tablet 0.5 - 1 tablet PO Q6H PRN (Reason: pain) Qty: 20 0RF psyllium Powder 1 tbsp PO BID Qty: 300 2RF Rx Instructions: mix into at least 8 oz of water or juice before administering Follow-up/Referrals: UNKNOWN,DOCTOR [Primary Care Provider] - Time of Disposition: 00:25
[2024-09-07] MEDS: LACTATED RINGERS 1,000 ML 999 ML IV CONT (21:59)
[2024-09-07] MEDS: ONDANSETRON INJ 4 MG/2 ML VIAL IV PUSH (22:00)
[2024-09-07] MEDS: HYDROmorphone HCL INJ (*CRX) 1 MG/ML SYR IV PUSH ×2 (22:00→23:09)
[2024-09-07] MEDS: LORazepam INJ (*CRX) 2 MG/ML VIAL 0.5 MG IV PUSH (22:00)
[2024-09-07 22:12] LABS: Basophils Percent Auto 0.2 % (0.2-1.2); Eosinophils Percent Auto 0.2 % (0-4.4); Hematocrit 33.2 % (37.0-47.0); Hemoglobin 10.7 g/dL (12.0-15.0); Immature Granulocyte Absolute 0.03 K/mm3 (0.00-0.031); Immature Granulocyte Percent A 0.3 % (0-0.5); Lymphocytes Absolute Auto 1.01 K/mm3 (0.9-3.2); Lymphocytes Percent Auto 9.7 % (18.3-44.2); Mean Corpuscular HGB Conc 32.2 g/dl (32-36); Mean Corpuscular Hemoglobin 27.6 pg (26-34); Mean Corpuscular Volume 85.6 fl (80-100); Mean Platelet Volume 9.5 fl (7.4-10.4); Monocytes Absolute Auto 0.9 K/mm3 (0.1-0.6); Monocytes Percent Auto 8.4 % (2.6-8.5); Neutrophils Absolute Auto 8.4 K/mm3 (1.3-6.7); Neutrophils Percent Auto 81.2 % (45.5-73.1); Platelet Count Result 464 k/mm3 (150-375); Red Blood Count 3.88 M/mm3 (4.2-5.4); Red Cell Distribution Width 14.3 % (11.5-14.5); White Blood Count 10.4 K/mm3 (4.5-10.0)
[2024-09-07 22:21] LABS: Lactic Acid Reflex 1.3 mmol/L (0.7-2.0)
[2024-09-07 22:22] LABS: Alanine Aminotransferase 10 U/L (6-35); Alkaline Phosphatase 74 U/L (38-126); Anion Gap 12 mmol/L (4-12); Aspartate Amino Transferase 19 U/L (14-36); Bilirubin,Total 0.5 mg/dL (0.2-1.3); Blood Urea Nitrogen 10 mg/dL (7-17); Calcium 9.1 mg/dL (8.4-10.2); Carbon Dioxide 24 mmol/L (22-30); Chloride 98 mmol/L (98-107); Estimated CRCL calculation 106 ml/min; Estimated Glomerular Filt Rate > 60; Glucose 92 mg/dL (65-110); INR 1.1; Lipase 15 U/L (23-300); Potassium 3.8 mmol/L (3.4-5.0); Prothrombin Time 14.4 Seconds (11.1-14.7); Sodium 134 mmol/L (137-145)
[2024-09-07 22:23] LABS: Partial Thromboplastin Time 33.3 Seconds (22.3-36.8)
[2024-09-07 23:36] VITALS: BP 121/78; PULSE 89; RESP 18; O2SAT 99
[2024-09-08] VITALS (18 sets, daily range): BP systolic 93–114; BP diastolic 53–78; PULSE 72–98; RESP 13–20; TEMP 36.4–37.4; O2SAT 96–100; BMI 20.1
[2024-09-08] MEDS: PIPERACILLIN/TAZ 4.5G/NS 100ML 4.5 GM/100 ML BAG IVPB (01:07)
[2024-09-08] MEDS: metroNIDAZOLE 500 MG/ISO 100ML 500 MG/100 ML BAG 100 MG IVPB ×2 (01:10→16:30)
[2024-09-08] MEDS: MORPHINE SULFATE (*CRX) 4 MG/ML INJ IV PUSH (01:19)
[2024-09-08] MEDS: ONDANSETRON INJ 4 MG/2 ML VIAL IV PUSH ×4 (01:19→18:49)
[2024-09-08] MEDS: HYDROmorphone HCL INJ (*CRX) 1 MG/ML SYR 0.5 MG IV PUSH (01:40)
[2024-09-08] MEDS: LACTATED RINGERS 1,000 ML 125 ML IV CONT ×2 (01:47→14:54)
[2024-09-08] MEDS: HYDROmorphone HCL INJ (*CRX) 1 MG/ML SYR IV PUSH ×4 (04:12→18:49)
--- NOTE | 2024-09-08 09:27 | ECG_ITS ---
Test Date: 2024-09-07 21:41:36 Measurements Intervals [place] Rate: 88 P: 40 MI: 119 QRS: 62 QRSD: 81 T: 51 QT: 367 QTc: 444 Interpretive Statements SINUS RHYTHM No previous ECG available for comparison Electronically Signed On 09-08-2024 14:28:50 CDT by Todd Coto M.D.
--- NOTE | 2024-09-08 10:57 | P.HP_ITS ---
H&P: HPI History of Present Illness Date/Time: 09/08/24 10:57 Chief Complaint: Left lower quadrant abdominal pain Narrative: This is a 33-year-old female known to our service from multiple previous hospitalizations for suspected sigmoid diverticulitis with perforation and abscess. This is her fifth admission for some type of severe inflammatory process associated with the sigmoid colon. Her last hospitalization she had an intra-abdominal abscess and was treated with IV antibiotics and percutaneous drainage. She was discharged on 09/05/2024 with the perc drain and Augmentin for 5 more days. She reports her abdominal pain was severe after discharge and was requiring her to take 3-4 oxycodone to try to control the pain. With oxycodone, she was able to ambulate, but otherwise felt like lying around at all times. Yesterday, she was walking around and noticed increased left lower quadrant abdominal pain and increased drainage at her dressing. She noticed that there was west drainage soaking through the gauze dressing around the perc drain. She was concerned and presented back to the ED for evaluation. [place] [id number], which is the same as her white blood cell count on discharge. CT scan of the abdomen and pelvis showed the left lower quadrant abscess appearing more extensive than the prior CT with a percutaneous drainage catheter in place and now extension into the anterior abdominal wall and subcutaneous soft tissues in the left lower quadrant. There is additional stranding subcutaneous emphysema in the left lower quadrant, and an additional 7.2 x 2.3 x 1.5 cm pelvic abscess in the pelvic cul-de-sac, and persistent underlying wall thickening of the sigmoid colon. She was admitted and started on IV antibiotics. The CT scan was reviewed with the radiologist by Dr. Vences. She is now seen on the medical floor. She is extremely anxious due to her concern of having surgery or any further procedures. She is still complaining of severe left lower quadrant abdominal pain, but feels it is more controlled with the IV Dilaudid. No nausea or vomiting. No fevers or chills. No other complaints at this time. Review of Systems Review of Systems: All systems reviewed & are unremarkable except as noted in HPI and below PMFSH Past Medical History Medical History Anxiety Asthma in childhood, resolved Surgical History Surgical History H/O gynecological procedure Mirena IUD insertion Family History Family History Mother Diverticulitis Father Heart problem Social History Social History Years smoked: 15 Smoking status: Current every day smoker Tobacco type: e-cigarettes/vaping Second hand tobacco smoke exposure: Yes Alcohol intake: never Substance use type: marijuana and other Other substance usage details: Vape Do You Feel Safe in your Home?: Yes Lack of Transportation: No Lack of Food: Never True Current Housing: I Have Housing Concerned About Future Housing: No Difficulty Paying Gas/Electric Bills: YES Difficulty Paying for Meds: No Currently Unemployed: YES Education: High School Diploma/GED Difficulty w/ Childcare or Family Care: No Occupation/Education: occupation Gender identity (if verbalized by the patient): Female Spiritual care concerns: No Meds Home Medications and Allergies Home Medications Medication Instructions Recorded Confirmed Type amoxicillin 875 mg-potassium 1 tablet PO Q12H #10 tabs 09/03/24 09/08/24 Rx clavulanate 125 mg tablet ketorolac 10 mg tablet 10 mg PO Q6H 4 days #16 tabs 09/03/24 09/08/24 Rx oxycodone-acetaminophen 5 mg-325 0.5 - 1 tablet PO Q6H PRN pain #20 09/03/24 09/08/24 Rx mg tablet tabs ondansetron 4 mg disintegrating 4 mg PO Q8H 09/08/24 09/08/24 History tablet Allergies Allergy/AdvReac Type Severity Reaction Status Date / Time No Known Allergies Allergy Verified 09/08/24 01:04 Vital Signs Vital Signs - 24 hr 09/07/24 18:05 09/07/24 21:02 09/07/24 21:02 Temperature 98.3 F Pulse Rate 86 79 Respiratory Rate 18 18 18 Blood Pressure 100/61 111/69 Pulse Oximetry 100 100 100 Oxygen Delivery Room Air 09/07/24 23:36 09/08/24 01:53 09/08/24 06:00 Temperature 99.1 F 99.4 F Pulse Rate 89 82 85 Respiratory Rate 18 18 16 Blood Pressure 121/78 105/60 110/55 L Pulse Oximetry 99 100 96 Oxygen Delivery 09/08/24 08:49 Temperature Pulse Rate Respiratory Rate Blood Pressure Pulse Oximetry 97 Oxygen Delivery Room Air Exam Const: General: in distress mild (Anxious) and uncomfortable (Due to abdominal pain) Nutritional Appearance: average body habitus Orientation/consciousness: patient oriented x3 HENMT: Head: normocephalic and atraumatic Ears: hearing grossly normal bilaterally Mouth: Yes moist mucous membranes Eyes: General: appearance normal, both eyes and all related structures Pupils: Equal, round and reactive pupils present Neck: Neck: normal visual inspection and full ROM Resp: Effort & Inspection: no respiratory distress Auscultation: clear to auscultation bilaterally Cardio: Rate: regular rate Rhythm: regular rhythm Heart sounds: S1 normal heart sound present and S2 normal heart sound present Peripheral pulses: Peripheral pulses 2+ throughout GI: Inspection: non-distended GI Palp: Yes Soft to palpation, Yes Tenderness to palpation present (GI) (Exquisitely tender in the left lower quadrant), Yes Guarding due to palpation present (GI) (Left lower quadrant) and No Rebound tenderness present Auscultation: normal bowel sounds Other: Left lower quadrant percutaneous drain with rust-colored brown drainage in the drain. Surrounding skin in the LLQ around the drain is erythematous with swelling and fluctuance, there is yellow/west purulent drainage draining at the perc drain site and she is extremely tender in this area to touch. Skin: General skin exam: normal color Neuro: General: moves all extremities and no focal motor deficits Speech: normal speech Motor exam (neuro): 5/5 motor strength present throughout Extrem: General: normal to inspection and no edema Psych: Mental Status: mental status grossly normal Attitude: cooperative Insight: Good insight present (Psych) Judgement: Good judgement present (Psych) H&P: Results Labs Labs: Short CBC 09/07/24 Range/Units 22:04 WBC 10.4 H (4.5-10.0) K/mm3 Hgb 10.7 L (12.0-15.0) g/dL Hct 33.2 L (37.0-47.0) % Plt Count 464 H (150-375) k/mm3 BMP 09/07/24 22:04 Sodium 134 L Potassium 3.8 Chloride 98 Carbon Dioxide 24 BUN 10 D Creatinine 0.50 L Glucose 92 Calcium 9.1 Liver Function 09/07/24 Range/Units 22:04 Total Bilirubin 0.5 (0.2-1.3) mg/dL AST 19 (14-36) U/L ALT 10 (6-35) U/L Alkaline Phosphatase 74 (38-126) U/L Albumin 4.0 (3.5-5.1) g/dL Imaging CT scan - abdomen: Radiologist's impression: ITS Impressions Abdomen/Pelvis CT 09/08/24 05:41 Impression: Status post interval placement of percutaneous drainage catheter in the left lower quadrant pericolonic abscess. The abscess is more extensive as compared to prior exam, now with extension into the anterior abdominal wall and subcutaneous soft tissues in the left lower quadrant. There is additional stranding subcutaneous emphysema in the left lower quadrant, which could be postprocedural in nature versus additional soft tissue infection. Additional 7.2 x 2.3 x 1.5 cm pelvic abscess in the pelvic cul-de-sac, as detailed above. Persistent underlying wall thickening of the sigmoid colon. Assessment and Plan Assessment and plan (1) Abdominal wall abscess: Code(s): L02.211 - Cutaneous abscess of abdominal wall Status: Acute Assessment and Plan: * Patient presented back two days after discharge with extension of the LLQ abscess anteriorly into the subcutaneous tissues around the perc drain, as well as a new pelvic abscess. I discussed the case with Dr. Vences, who reviewed the CT with the Radiologist. He recommends proceeding with upsizing the LLQ perc drain in Radiology. Continue IV antibiotics and will keep her NPO for now for the procedure. Continue IV fluids for now. (2) Diverticulitis of large intestine with abscess: Code(s): K57.20 - Diverticulitis of large intestine with perforation and abscess without bleeding Status: Acute Assessment and Plan: * Patient with a persistent complicated inflammatory process of the sigmoid colon for the past 4-5 months. Suspect this could be diverticulitis verses malignancy. See plan above. Continue IV antibiotics. (3) Anemia: Qualifiers: Other causes of anemia: chronic disease, other Code(s): D64.9 - Anemia, unspecified Status: Chronic Assessment and Plan: * Stable. Hemoglobin 10 on admission. Plan I have discussed the patient's case and plan of care with Dr. Vences.
--- NOTE | 2024-09-08 12:55 | SUR.PHASEII ---
phone and bedside report with nurse ayesha gupta. vitals stable. pt without distress or complications. pt continues to c/o abd pain at site of drain. pt to be medicated for nausea at this time. drain remains in place and functioning properly. iv site patent/intact and clamped.
[2024-09-08] MEDS: PIPERACILLN/TAZ 3.375GM/NS50ML 3.375 GM/50 ML BAG IVPB ×3 (14:54→21:46)
[2024-09-09] MEDS: HYDROmorphone HCL INJ (*CRX) 1 MG/ML SYR IV PUSH ×7 (00:46→21:32)
[2024-09-09] MEDS: metroNIDAZOLE 500 MG/ISO 100ML 500 MG/100 ML BAG 100 MG IVPB ×3 (00:49→16:58)
[2024-09-09] MEDS: ONDANSETRON INJ 4 MG/2 ML VIAL IV PUSH ×4 (00:49→15:54)
[2024-09-09] MEDS: LACTATED RINGERS 1,000 ML 125 ML IV CONT ×2 (00:49→10:18)
[2024-09-09] MEDS: PIPERACILLN/TAZ 3.375GM/NS50ML 3.375 GM/50 ML BAG IVPB ×4 (03:30→21:32)
[2024-09-09 06:00] VITALS: BP 116/67; PULSE 72; RESP 18; TEMP 36.8; O2SAT 96
[2024-09-09 06:35] LABS: Basophils Percent Auto 0.3 % (0.2-1.2); Eosinophils Absolute Auto 0.1 K/mm3 (0-0.3); Eosinophils Percent Auto 0.6 % (0-4.4); Hematocrit 27.5 % (37.0-47.0); Hemoglobin 8.8 g/dL (12.0-15.0); Immature Granulocyte Absolute 0.06 K/mm3 (0.00-0.031); Immature Granulocyte Percent A 0.8 % (0-0.5); Lymphocytes Absolute Auto 1.22 K/mm3 (0.9-3.2); Lymphocytes Percent Auto 15.5 % (18.3-44.2); Mean Corpuscular Hemoglobin 27.7 pg (26-34); Mean Corpuscular Volume 86.5 fl (80-100); Mean Platelet Volume 9.3 fl (7.4-10.4); Monocytes Absolute Auto 0.5 K/mm3 (0.1-0.6); Monocytes Percent Auto 6.9 % (2.6-8.5); Neutrophils Percent Auto 75.9 % (45.5-73.1); Platelet Count Result 409 k/mm3 (150-375); Red Blood Count 3.18 M/mm3 (4.2-5.4); Red Cell Distribution Width 14.1 % (11.5-14.5); White Blood Count 7.9 K/mm3 (4.5-10.0)
[2024-09-09 06:48] LABS: Anion Gap 13 mmol/L (4-12); Blood Urea Nitrogen 3 mg/dL (7-17); Calcium 8.7 mg/dL (8.4-10.2); Carbon Dioxide 21 mmol/L (22-30); Chloride 101 mmol/L (98-107); Estimated CRCL calculation 90 ml/min; Estimated Glomerular Filt Rate > 60; Glucose 90 mg/dL (65-110); Potassium 3.8 mmol/L (3.4-5.0); Sodium 135 mmol/L (137-145)
[2024-09-09 14:00] VITALS: BP 129/75; PULSE 87; RESP 20; TEMP 37; O2SAT 98
--- NOTE | 2024-09-09 15:43 | P.PNGS_ITS ---
Progress Note: A&P Assessment and Plan (1) Abdominal wall abscess: Code(s): L02.211 - Cutaneous abscess of abdominal wall Status: Acute Assessment and Plan: * Perc drain upsized yesterday. Still having a lot of abdominal pain. WBC normal and vital signs are stable. Will add scheduled IV Ibuprofen. * Will keep her on clear liquids and monitor the perc drain. * Continue IV antibiotics * Repeat labs tomorrow and we will order a repeat CT scan of the abdomen and pelvis tomorrow to re-evaluate. (2) Diverticulitis of large intestine with abscess: Code(s): K57.20 - Diverticulitis of large intestine with perforation and abscess without bleeding Status: Acute Assessment and Plan: * Patient with a persistent complicated inflammatory process of the sigmoid colon for the past 4-5 months. Suspect this could be diverticulitis verses malignancy. See plan above. Continue IV antibiotics. 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 On clear liquids. May need to back off diet if not improving and consider PICC line/TPN. Plan I have discussed the patient's case and plan of care with Dr. Vences. Subjective Subjective Date/Time Seen: 09/09/24 15:43 Patient reports: still having pain, voiding w/o difficulty, flatus, no bowel movement and afebrile Interval history: Patient still complaining of pain without any improvement since yesterday. She is very anxious. She also asked for some medication to help her sleep as she was not able to sleep. Trazodone is ordered but she was not given this last night. She is tolerating liquids without any nausea or vomiting. She felt like her abdominal pain was initially getting better yesterday until around 5:00 am this morning her pain was back at the severity it was when she came in. She reports a sudden onset of LLQ pain and then she noticed drainage running down around the perc drain. Since then, her pain has been severe. WBC normal today. VS are stable and she is afebrile. Dilaudid is helping but she feels it is not as much as yesterday. Exam Const: General: in distress mild (Anxious) and uncomfortable (Due to abdominal pain) GI: Inspection: non-distended GI Palp: Yes Tenderness to palpation present (GI) (diffuse tenderness, but she is extremely tender in the LLQ ) and Yes Guarding due to palpation present (GI) (more diffuse guarding and rigidity today) Auscultation: Hypoactive bowel sounds present Other: LLQ perc drain with brown feculent-appearing output, dressing removed and the surrounding erythema and swelling has improved since yesterday. There is west/brown drainage coming around the drain and I'm able to express some drainage, but she is very tender in this area. Objective Data Vital Signs Vital Signs: Vital Signs - 24 hr 09/08/24 22:00 09/08/24 20:00 09/09/24 06:00 Temperature 97.5 F L 98.3 F Pulse Rate 81 72 Respiratory Rate 18 18 Blood Pressure 98/56 L 116/67 Pulse Oximetry 100 96 Oxygen Delivery Room Air 09/09/24 14:00 Temperature 98.6 F Pulse Rate 87 Respiratory Rate 20 Blood Pressure 129/75 Pulse Oximetry 98 Oxygen Delivery Intake/Output Intake/Output: Intake & Output 09/06/24 09/07/24 09/08/24 09/09/24 23:59 23:59 23:59 23:59 Intake Total 1000 2420 1490 Output Total 0 30 Balance 1000 2420 1460 Meds/Results Medications: Active Medications Generic Name Dose Route Start Last Admin Trade Name Freq PRN Reason Stop Dose Admin Hydromorphone HCl 1 mg 09/08/24 07:55 09/09/24 13:05 Hydromorphone Hcl Inj (*Crx) 1 Mg/Ml Syr IV PUSH 1 mg Q2H PRN Administration Pain Rated 7-10 Lactated Ringer's 1,000 mls @ 125 mls/hr 09/08/24 00:15 09/09/24 10:18 Lr - Lactated Ringers Iv IV CONT 125 mls/hr .Q8H FIDELIA Administration Metronidazole 500 mg in 100 mls @ 100 mls/hr 09/08/24 16:00 09/09/24 09:10 Flagyl 500 Mg/Iso Soln 100 Ml IVPB Infused Q8H FIDELIA Infusion Piperacillin/Tazobactam/Dextrose 3.375 gm in 50 mls @ 100 mls/hr 09/08/24 15:00 09/09/24 10:18 Zosyn 3.375 Gm/Ns 50 Ml IVPB 100 mls/hr Q6H FIDELIA Administration Lorazepam 0.5 mg 09/08/24 19:44 Lorazepam Inj (*Crx) 2 Mg/Ml Vial IV PUSH Q6H PRN Anxiety Ondansetron HCl 4 mg 09/08/24 00:14 09/09/24 10:50 Ondansetron Inj 4 Mg/2 Ml Vial IV PUSH 4 mg Q4H PRN Administration Nausea Prochlorperazine Edisylate 10 mg 09/08/24 16:07 Prochlorperazine Edisylate 10 Mg/2 Ml Vial IV PUSH 09/10/24 16:06 Q6H PRN Nausea And Vomiting Trazodone HCl 25 mg 09/08/24 16:16 Trazodone Hcl 25 Mg Tablet PO HS PRN Insomnia Radiology Results: ITS Impressions Abdomen/Pelvis CT 09/08/24 05:41 Impression: Status post interval placement of percutaneous drainage catheter in the left lower quadrant pericolonic abscess. The abscess is more extensive as compared to prior exam, now with extension into the anterior abdominal wall and subcutaneous soft tissues in the left lower quadrant. There is additional stranding subcutaneous emphysema in the left lower quadrant, which could be postprocedural in nature versus additional soft tissue infection. Additional 7.2 x 2.3 x 1.5 cm pelvic abscess in the pelvic cul-de-sac, as detailed above. Persistent underlying wall thickening of the sigmoid colon. Catheter Placement CT 09/08/24 14:14 IMPRESSION: 1[address] Successful CT-guided upsizing to 12 Irish of a prior 8.5 Irish left lower quadrant percutaneous abscess drain.. 2. The catheter will be managed by Dr. Vences. 3. Patent fistulous draining tract with small amount of the water-soluble contrast injected into the percutaneous abscess drain extending into the proximal sigmoid colon and refluxing proximally into the distal descending colon. Labs Labs: Laboratory Results - last 24 hr 09/09/24 06:23 WBC 7.9 RBC 3.18 L Hgb 8.8 L Hct 27.5 L MCV 86.5 MCH 27.7 MCHC 32.0 RDW 14.1 Plt Count 409 H MPV 9.3 Immature Gran % (Auto) 0.8 H Neut % (Auto) 75.9 H Lymph % (Auto) 15.5 L [place] % (Auto) 6.9 Eos % (Auto) 0.6 Baso % (Auto) 0.3 Lymph # (Auto) 1.22 [place] # (Auto) 0.5 Eos # (Auto) 0.1 Baso # (Auto) 0.0 Abs Immat Gran (auto) 0.06 H Absolute Neuts (auto) 6.0 Absolute Nucleated RBC 0.000 Nucleated RBC % 0.0 Sodium 135 L Potassium 3.8 Chloride 101 Carbon Dioxide 21 L Anion Gap 13 H BUN 3 L D Creatinine 0.60 L Estim Creat Clear Calc 90 Estimated GFR > 60 Glucose 90 Calcium 8.7
[2024-09-09] MEDS: IBUPROFEN IV 800 MG/200 ML 800 MG/200 ML BAG 400 MG IVPB ×2 (16:23→23:57)
[2024-09-09 20:36] VITALS: BP 110/76; PULSE 78; RESP 16; TEMP 36.4; O2SAT 100
[2024-09-09] MEDS: FAMOTIDINE 20 MG/2 ML VIAL IV PUSH (20:39)
[2024-09-09] MEDS: traZODone HCL 25 MG TABLET PO (21:32)
[2024-09-09] MEDS: LACTATED RINGERS 1,000 ML 60 ML IV CONT (21:34)
[2024-09-10] MEDS: metroNIDAZOLE 500 MG/ISO 100ML 500 MG/100 ML BAG 100 MG IVPB ×4 (00:34→23:45)
[2024-09-10] MEDS: HYDROmorphone HCL INJ (*CRX) 1 MG/ML SYR IV PUSH ×8 (02:15→23:45)
[2024-09-10] MEDS: PIPERACILLN/TAZ 3.375GM/NS50ML 3.375 GM/50 ML BAG IVPB ×4 (02:31→20:17)
[2024-09-10] MEDS: IBUPROFEN IV 800 MG/200 ML 800 MG/200 ML BAG 400 MG IVPB (05:30)
[2024-09-10 06:00] VITALS: BP 103/67; PULSE 82; RESP 16; TEMP 36.7; O2SAT 99
[2024-09-10 06:21] LABS: Hematocrit 27.9 % (37.0-47.0); Hemoglobin 8.6 g/dL (12.0-15.0); Mean Corpuscular HGB Conc 30.8 g/dl (32-36); Mean Corpuscular Hemoglobin 26.9 pg (26-34); Mean Corpuscular Volume 87.2 fl (80-100); Mean Platelet Volume 9.4 fl (7.4-10.4); Platelet Count Result 384 k/mm3 (150-375); Red Cell Distribution Width 14.3 % (11.5-14.5); White Blood Count 7.6 K/mm3 (4.5-10.0)
[2024-09-10 06:29] LABS: Anion Gap 11 mmol/L (4-12); Calcium 8.5 mg/dL (8.4-10.2); Carbon Dioxide 24 mmol/L (22-30); Chloride 102 mmol/L (98-107); Estimated CRCL calculation 90 ml/min; Estimated Glomerular Filt Rate > 60; Glucose 84 mg/dL (65-110); Potassium 3.5 mmol/L (3.4-5.0); Sodium 137 mmol/L (137-145)
[2024-09-10 07:00] LABS: Blood Urea Nitrogen < 2 mg/dL (7-17)
[2024-09-10] MEDS: FAMOTIDINE 20 MG/2 ML VIAL IV PUSH ×2 (07:59→20:16)
[2024-09-10] MEDS: ONDANSETRON INJ 4 MG/2 ML VIAL IV PUSH ×3 (09:17→18:14)
--- NOTE | 2024-09-10 11:15 | P.PNGS_ITS ---
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 - Fistula of intestine Status: Acute Assessment and Plan: see above Subjective Subjective Date/Time Seen: 09/10/24 11:15 Interval history: feels better today, +bowel fxn, decreased pain in LLQ Review of Systems Review of Systems: All systems reviewed & are unremarkable except as noted in HPI and below Exam Const: General: cooperative, comfortable and no acute distress Resp: Auscultation: clear to auscultation bilaterally Cardio: Rate: regular rate Rhythm: regular rhythm GI: Inspection: normal to inspection and non-distended GI Palp: Yes abdominal tenderness, Yes Soft to palpation, Yes Tenderness to palpation present (GI), No Guarding due to palpation present (GI) and No Rigid due to palpation Other: LLQ drain c decreased drainage Objective Data Vital Signs Vital Signs: Vital Signs - 24 hr 09/09/24 14:00 09/09/24 20:36 09/09/24 20:00 Temperature 37.0 C 36.4 C L Pulse Rate 87 78 Respiratory Rate 20 16 Blood Pressure 129/75 110/76 Pulse Oximetry 98 100 Oxygen Delivery Room Air 09/10/24 06:00 09/10/24 08:00 Temperature 36.7 C Pulse Rate 82 Respiratory Rate 16 Blood Pressure 103/67 Pulse Oximetry 99 Oxygen Delivery Room Air Intake/Output Intake/Output: Intake & Output 09/07/24 09/08/24 09/09/24 09/10/24 23:59 23:59 23:59 23:59 Intake Total 1000 2420 3420.0 800 Output Total 0 30 600 Balance 1000 2420 3390.0 200 Meds/Results Medications: Active Medications Generic Name Dose Route Start Last Admin Trade Name Freq PRN Reason Stop Dose Admin Enoxaparin Sodium 40 mg 09/10/24 09:00 09/10/24 08:00 Enoxaparin 40 Mg/0.4 Ml Syringe SUB-Q Not Given DAILY FIDELIA Famotidine 20 mg 09/09/24 21:00 09/10/24 07:59 Famotidine 20 Mg/2 Ml Vial IV PUSH 20 mg Q12HR FIDELIA Administration Hydromorphone HCl 1 mg 09/08/24 07:55 09/10/24 09:01 Hydromorphone Hcl Inj (*Crx) 1 Mg/Ml Syr IV PUSH 1 mg Q2H PRN Administration Pain Rated 7-10 Lactated Ringer's 1,000 mls @ 60 mls/hr 09/08/24 00:15 09/09/24 21:34 Lr - Lactated Ringers Iv IV CONT 60 mls/hr .[id number] FIDELIA Administration Metronidazole 500 mg in 100 mls @ 100 mls/hr 09/08/24 16:00 09/10/24 08:58 Flagyl 500 Mg/Iso Soln 100 Ml IVPB Infused Q8H FIDELIA Infusion Piperacillin/Tazobactam/Dextrose 3.375 gm in 50 mls @ 100 mls/hr 09/08/24 15:00 09/10/24 09:31 Zosyn 3.375 Gm/Ns 50 Ml IVPB Infused Q6H FIDELIA Infusion Ibuprofen 800 mg in 200 mls @ 400 mls/hr 09/09/24 15:45 09/10/24 06:00 Caldolor 800 Mg/200 Ml IVPB Infused Q6HR FIDELIA Infusion Lorazepam 0.5 mg 09/08/24 19:44 Lorazepam Inj (*Crx) 2 Mg/Ml Vial IV PUSH Q6H PRN Anxiety Ondansetron HCl 4 mg 09/08/24 00:14 09/10/24 09:17 Ondansetron Inj 4 Mg/2 Ml Vial IV PUSH 4 mg Q4H PRN Administration Nausea Prochlorperazine Edisylate 10 mg 09/08/24 16:07 Prochlorperazine Edisylate 10 Mg/2 Ml Vial IV PUSH 09/10/24 16:06 Q6H PRN Nausea And Vomiting Trazodone HCl 25 mg 09/08/24 16:16 09/09/24 21:32 Trazodone Hcl 25 Mg Tablet PO 25 mg HS PRN Administration Insomnia Radiology Results: ITS Impressions Catheter Placement CT 09/08/24 14:14 IMPRESSION: 1[address] Successful CT-guided upsizing to 12 Ethiopian of a prior 8.5 Ethiopian left lower quadrant percutaneous abscess drain.. 2. The catheter will be managed by Dr. Vences. 3. Patent fistulous draining tract with small amount of the water-soluble contrast injected into the percutaneous abscess drain extending into the proximal sigmoid colon and refluxing proximally into the distal descending colon. Abdomen/Pelvis CT 09/10/24 08:53 IMPRESSION: 1. Interval upsizing of a left lower quadrant percutaneous abscess drain within a residual 2.2 x 1.9 cm abscess cavity located within a larger region of phlegmonous change with smaller of a communicating extension of the abscess. No other drainable abscess is identified. 2. Small amount of likely reactive nonorganized appearing free fluid in the deep pelvis. 3. Focal wall thickening and narrowing of the lumen of the proximal sigmoid colon potentially representing a stricture related to diverticulitis which is located at the site of a previous identified draining sinus tract evident at the time of the drainage catheter exchange. Labs Labs: Laboratory Results - last 24 hr 09/10/24 05:45 WBC 7.6 RBC 3.20 L Hgb 8.6 L Hct 27.9 L MCV 87.2 MCH 26.9 MCHC 30.8 L RDW 14.3 Plt Count 384 H MPV 9.4 Sodium 137 Potassium 3.5 Chloride 102 Carbon Dioxide 24 Anion Gap 11 BUN < 2 L Creatinine 0.60 L Estim Creat Clear Calc 90 Estimated GFR > 60 Glucose 84 Calcium 8.5
[2024-09-10 14:00] VITALS: BP 110/70; PULSE 77; RESP 20; TEMP 36.1; O2SAT 100
[2024-09-10] MEDS: LORazepam INJ (*CRX) 2 MG/ML VIAL 0.5 MG IV PUSH (15:29)
[2024-09-10 20:15] VITALS: PULSE 80; RESP 16; O2SAT 100
[2024-09-10] MEDS: LACTATED RINGERS 1,000 ML 60 ML IV CONT (20:16)
[2024-09-10] MEDS: traZODone HCL 25 MG TABLET PO (20:17)
[2024-09-10 21:48] VITALS: BP 111/62; PULSE 80; RESP 16; TEMP 36.7; O2SAT 100
[2024-09-11] MEDS: PIPERACILLN/TAZ 3.375GM/NS50ML 3.375 GM/50 ML BAG IVPB ×4 (02:18→21:46)
[2024-09-11] MEDS: HYDROmorphone HCL INJ (*CRX) 1 MG/ML SYR IV PUSH ×7 (02:18→23:46)
[2024-09-11] MEDS: ONDANSETRON INJ 4 MG/2 ML VIAL IV PUSH ×3 (02:53→23:15)
[2024-09-11] MEDS: LORazepam INJ (*CRX) 2 MG/ML VIAL 0.5 MG IV PUSH ×2 (04:20→17:49)
[2024-09-11 06:00] VITALS: BP 110/61; PULSE 90; RESP 16; TEMP 36.6; O2SAT 96
[2024-09-11 08:00] VITALS: O2SAT 96
[2024-09-11] MEDS: metroNIDAZOLE 500 MG/ISO 100ML 500 MG/100 ML BAG 100 MG IVPB (08:51)
[2024-09-11] MEDS: FAMOTIDINE 20 MG/2 ML VIAL IV PUSH ×2 (08:58→22:26)
[2024-09-11] MEDS: ENOXAPARIN 40 MG/0.4 ML SYRINGE SUB-Q (08:59)
--- NOTE | 2024-09-11 10:21 | P.PNGS_ITS ---
Progress Note: A&P Assessment and Plan (1) Diverticulitis of large intestine with abscess: Code(s): K57.20 - Diverticulitis of large intestine with perforation and abscess without bleeding Status: Acute Assessment and Plan: Patient with multiple hospitalizations for her perforated diverticulitis and now with fecal peritonitis and a colocutaneous fistula. She is s/p percutaneous drainage with upsizing of the drain and now improved drainage. I discussed the case with Dr. Lang. Given her worsening diverticulitis with multiple attempts at conservative management, it is likely that she will require a surgery. He is going to see the patient later today and discuss surgical options. Continue IV antibiotics for now. Will plan accordingly. 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 Lang. Subjective Subjective Date/Time Seen: 09/11/24 10:21 Patient reports: voiding w/o difficulty, bowel movement and afebrile Interval history: Abdominal pain has improved some over the past two days. She is still requiring IV Dilaudid every 2 hours during the day and throughout the night. Her abdominal pain is mostly in the LLQ now with the more generalized pain improved. She still has intermittent sharp pains in the RLQ as well. She reports intermittent nausea, but thought it was related to the IV Dilaudid. She did have an episode of vomiting last night. Although, this morning she ate her full breakfast and tolerated this well. Her bowels are finally moving. She had about 6 BMs since yesterday. At first, they were more solid and now loose. She still has drainage going around the drain. She has been refusing the IV Ibuprofen since yesterday morning because it would burn when infusing through her IV. She is not sure why, because she tolerated this in the past without any issues. She is still having west drainage coming around the LLQ perc drain as well. Her dressing was changed 3 times in the past 24 hours. No output documented from the perc drain overnight and only 7 cc recorded from dayshift yesterday. The patient states that they e mptied the drain early this morning and nursing did not get told in report how much was emptied. There is about 50 cc of feculent-appearing output in the drain this morning. Exam Const: General: comfortable and no acute distress GI: Inspection: non-distended GI Palp: Yes Soft to palpation, Yes Tenderness to palpation present (GI) (across the lower abdomen with increased tenderness towards the LLQ) and No Guarding due to palpation present (GI) Auscultation: normal bowel sounds Other: LLQ perc drain with feculent-appearing brown drainage, dressing completely saturated and was changed. There is oozing of west drainage around the drain during the dressing change. The erythema and swelling around the drain has improved, but she is still extremely tender in this area even to remove the tegaderm bandage. Objective Data Vital Signs Vital Signs: Vital Signs - 24 hr 09/10/24 14:00 09/10/24 21:48 09/10/24 20:15 Temperature 96.9 F L 98.1 F Pulse Rate 77 80 80 Respiratory Rate 20 16 16 Blood Pressure 110/70 111/62 Pulse Oximetry 100 100 100 Oxygen Delivery Room Air 09/11/24 06:00 Temperature 97.9 F Pulse Rate 90 Respiratory Rate 16 Blood Pressure 110/61 Pulse Oximetry 96 Oxygen Delivery Intake/Output Intake/Output: Intake & Output 09/08/24 09/09/24 09/10/24 09/11/24 23:59 23:59 23:59 23:59 Intake Total 2420 3420.0 2440 518 Output Total 0 30 607 Balance 2420 3390.0 1833 518 Meds/Results Medications: Active Medications Generic Name Dose Route Start Last Admin Trade Name Freq PRN Reason Stop Dose Admin Enoxaparin Sodium 40 mg 09/10/24 09:00 09/11/24 08:59 Enoxaparin 40 Mg/0.4 Ml Syringe SUB-Q 40 mg DAILY FIDELIA Administration Famotidine 20 mg 09/09/24 21:00 09/11/24 08:58 Famotidine 20 Mg/2 Ml Vial IV PUSH 20 mg Q12HR FIDELIA Administration Hydromorphone HCl 1 mg 09/08/24 07:55 09/11/24 08:59 Hydromorphone Hcl Inj (*Crx) 1 Mg/Ml Syr IV PUSH 1 mg Q2H PRN Administration Pain Rated 7-10 Lactated Ringer's 1,000 mls @ 60 mls/hr 09/08/24 00:15 09/11/24 07:28 Lr - Lactated Ringers Iv IV CONT Not Given .[id number] FIDELIA Metronidazole 500 mg in 100 mls @ 100 mls/hr 09/08/24 16:00 09/11/24 09:51 Flagyl 500 Mg/Iso Soln 100 Ml IVPB Infused Q8H FIDELIA Infusion Piperacillin/Tazobactam/Dextrose 3.375 gm in 50 mls @ 100 mls/hr 09/08/24 15:00 09/11/24 09:46 Zosyn 3.375 Gm/Ns 50 Ml IVPB Infused Q6H FIDELIA Infusion Ibuprofen 800 mg in 200 mls @ 400 mls/hr 09/09/24 15:45 09/11/24 05:05 Caldolor 800 Mg/200 Ml IVPB Not Given Q6HR FIDELIA Lorazepam 0.5 mg 09/08/24 19:44 09/11/24 04:20 Lorazepam Inj (*Crx) 2 Mg/Ml Vial IV PUSH 0.5 mg Q6H PRN Administration Anxiety Ondansetron HCl 4 mg 09/08/24 00:14 09/11/24 02:53 Ondansetron Inj 4 Mg/2 Ml Vial IV PUSH 4 mg Q4H PRN Administration Nausea Trazodone HCl 25 mg 09/08/24 16:16 09/10/24 20:17 Trazodone Hcl 25 Mg Tablet PO 25 mg HS PRN Administration Insomnia Radiology Results: ITS Impressions Catheter Placement CT 09/08/24 14:[address]: 1[address]-guided upsizing to 12 [place] of a prior 8.5 [place] left lower quadrant percutaneous abscess drain.. 2. The catheter will be managed by Dr. Vences. 3. Patent fistulous draining tract with small amount of the water-soluble contrast injected into the percutaneous abscess drain extending into the proximal sigmoid colon and refluxing proximally into the distal descending colon. Abdomen/Pelvis CT 09/10/24 08:53 IMPRESSION: 1. Interval upsizing of a left lower quadrant percutaneous abscess drain within a residual 2.2 x 1.9 cm abscess cavity located within a larger region of phlegmonous change with smaller of a communicating extension of the abscess. No other drainable abscess is identified. 2. Small amount of likely reactive nonorganized appearing free fluid in the deep pelvis. 3. Focal wall thickening and narrowing of the lumen of the proximal sigmoid colon potentially representing a stricture related to diverticulitis which is located at the site of a previous identified draining sinus tract evident at the time of the drainage catheter exchange.
[2024-09-11] MEDS: oxyCODONE/ACETAMINOPHEN (*CRX) 10-325 MG TABLET 1 TAB PO ×2 (10:51→16:56)
--- NOTE | 2024-09-11 11:11 | PCNFU ---
Nutrition Follow-Up Complete: Moderate protein calorie malnutrition related to reduced appetite and intake due to altered GI function as evidenced by pt report of reduced po intake for greater than 1 month and a significant weight change of -12% x 3 months. Inadequate energy intake related to NPO status as evidenced by current diet orders. Goal:Meet estimated needs Pt progressing slowly to goal. Continue with same goal. Pt current nutrition is low fiber. Nutrition recommendation: Add Ensure Enlive BID for supplement Last recorded weight is 50 kg. Bowel Motility: +BM 09/11 Labs Reviewed: Hgb:8.6, HCT:27.9, Cr:0.6 Meds Noted: zofran Skin: WNL Additional Notes: Pt diet advanced to low fiber, intake 5-25% at this time. Recommend to add Ensure Enlive BID to supplement intake. Monitor for diet order, intake, wt, labs. Follow up in 3 days
[2024-09-11] MEDS: IBUPROFEN 600 MG TABLET PO ×2 (11:38→17:49)
[2024-09-11 14:00] VITALS: BP 93/62; PULSE 72; RESP 20; TEMP 36.1; O2SAT 97
--- NOTE | 2024-09-11 17:45 | PC.NURSE ---
Dr. Lang at bedside.
--- NOTE | 2024-09-11 18:45 | P.PNGS_ITS ---
Progress Note: A&P Assessment and Plan (1) Diverticulitis of large intestine with abscess: Qualifiers: Diverticulitis bleeding: without bleeding Qualified Code(s): K57.20 - Diverticulitis of large intestine with perforation and abscess without bleeding Code(s): K57.20 - Diverticulitis of large intestine with perforation and abscess without bleeding Status: Acute Assessment and Plan: Medical record reviewed including all labs and imaging done since 09/03/2024. Discussed patient with Dr. Vences, who has been managing her. He was covering for me and I will go ahead resume care. I explained to the patient that we have done as much as possible to manage this and enable her to recover without surgery. Unfortunately, she has not gotten better. Her abscess got worse and now she has liquid stool draining not only into the pigtail catheter but around the catheter. She is improved from her admission 09 07 and 09/08/2024. This is not going to go away without surgery and I have discussed this with her. She is upset and crying but understands that surgery needs to be done. I explained t hat we would go to the operating room tomorrow morning and removed the sigmoid colon which is the source of the perforation, abscess, and now colocutaneous fistula. She will require either and end colostomy or a loop ileostomy. The loop ileostomy would be performed should I be able to perform colorectal anastomosis at the procedure. I explained that she will definitely need a 2nd procedure to restore intestinal continuity. Explained that typically this is 2- 3 months after the surgery that we would go ahead with the closure of the ileostomy or colostomy. Patient is upset and not happy about surgery being needed but understands that it is needed and is willing to proceed. Additionally, there is still a possibility that a colonic neoplasm may be the cause of her infection and fistula although diverticulitis does seem to be much more likely. All questions were answered. I did cut off and removed the pigtail catheter except about 1 in from the exit site on the skin. A colostomy appliance was placed over the exit site of the catheter and liquid stool was draining immediately after it was placed. 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 (4) Anemia: Qualifiers: Other causes of anemia: chronic disease, other Code(s): D64.9 - Anemia, unspecified Status: Chronic Assessment and Plan: Persistent but stable anemia. Subjective Subjective Date/Time Seen: 09/11/24 18:45 Patient reports: still having pain (Taking Dilaudid pretty much every 2 hours, drain is painful left lower quadrant is painful), voiding w/o difficulty, bowel movement (Having stool come out through the pigtail catheter but also around the pigtail catheter leaking on patient, bed, and clothing) and afebrile Interval history: Patient very upset when I came in the room. She continues to have abdominal pain and just prior to my arrival, she had liquid stool leak around her pigtail catheter and soiled the bed, her clothing, and her abdominal skin. She voices frustration and and anxiety as she has 2 children and has not been able to work. Review of Systems Review of Systems: All systems reviewed & are unremarkable except as noted in HPI and below (HPI) Constitutional: Constitutional: Denies chills, Denies fever(s), Reports lethargy, Denies night sweats and Reports poor appetite Gastrointestinal: Gastrointestinal: Reports as per HPI, Reports abdominal pain, Reports bloating, Reports GI cramping, Denies diarrhea and Denies vomiting Genitourinary: Genitourinary: Reports pelvic pain Psychiatric: Psychiatric: Reports anxiety Hematologic/Lymphatic: Hematologic/Lymphatic: Reports no additional hematologic/lymphatic complaints and Reports as per HPI Exam Const: General: cooperative, comfortable, alert, awake, anxious, tired appearing and thin Orientation/consciousness: patient oriented x3 and No confusion GI: Inspection: no abdominal wall ecchymosis, no edema, non-distended, scaphoid, no visible herniation and other (Left lower quadrant pigtail, cut off about 1 in from the skin.) GI Palp: Yes Soft to palpation, Yes Tenderness to palpation present (GI) (Left lower quadrant and drain site), No Guarding due to palpation present (GI), No Hernia present, No Palpable mass present, No Ascites present and No Rebound tenderness present Auscultation: Hypoactive bowel sounds present Other: Liquid stool draining through the into the pigtail catheter and around the catheter in sizable amounts Skin: General skin exam: normal color, elasticity normal, turgor normal, no ecchymosis, no erythema, pallor and No rashes Rashes: no rashes Wounds: fistulous tract (Left lower quadrant) Neuro: General: patient oriented x3 Cranial nerves: Yes Bilaterally intact EOM present, Yes facial symmetry and Yes Midline tongue present Cognition (Neuro): normal cognition Speech: normal speech Motor exam (neuro): 5/5 motor strength present throughout Extrem: General: normal to inspection and full ROM Psych: Speech and movement: Clear speech present Affect: Anxious affect present Attitude: cooperative Thought process: Normal thought process present Thought content: Yes Normal thought content present Insight: Good insight present (Psych) Judgement: Good judgement present (Psych) Objective Data Vital Signs Vital Signs: Vital Signs - 24 hr 09/10/24 21:48 09/10/24 20:15 09/11/24 06:00 Temperature 36.7 C 36.6 C Pulse Rate 80 80 90 Respiratory Rate 16 16 16 Blood Pressure 111/62 110/61 Pulse Oximetry 100 100 96 Oxygen Delivery Room Air 09/11/24 08:00 09/11/24 14:00 Temperature 36.1 C L Pulse Rate 72 Respiratory Rate 20 Blood Pressure 93/62 L Pulse Oximetry 96 97 Oxygen Delivery Room Air Intake/Output Intake/Output: Intake & Output 09/08/24 09/09/24 09/10/24 09/11/24 23:59 23:59 23:59 23:59 Intake Total 2420 3420.0 2440 568 Output Total 0 30 607 1080 Balance 2420 3390.0 1833 -512 Meds/Results Medications: Active Medications Generic Name Dose Route Start Last Admin Trade Name Freq PRN Reason Stop Dose Admin Enoxaparin Sodium 40 mg 09/10/24 09:00 09/11/24 08:59 Enoxaparin 40 Mg/0.4 Ml Syringe SUB-Q 40 mg DAILY FIDELIA Administration Famotidine 20 mg 09/09/24 21:00 09/11/24 08:58 Famotidine 20 Mg/2 Ml Vial IV PUSH 20 mg Q12HR FIDELIA Administration Hydromorphone HCl 1 mg 09/08/24 07:55 09/11/24 08:59 Hydromorphone Hcl Inj (*Crx) 1 Mg/Ml Syr IV PUSH 1 mg Q2H PRN Administration Pain Rated 7-10 Piperacillin/Tazobactam/Dextrose 3.375 gm in 50 mls @ 100 mls/hr 09/08/24 15:00 09/11/24 14:55 Zosyn 3.375 Gm/Ns 50 Ml IVPB Infused Q6H FIDELIA Infusion Lactated Ringer's 1,000 mls @ 80 mls/hr 09/11/24 18:35 Lr - Lactated Ringers Iv IV CONT .[id number] FIDELIA Ibuprofen 600 mg 09/11/24 11:00 09/11/24 17:49 Ibuprofen 600 Mg Tablet PO 600 mg Q6HR FIDELIA Administration Lorazepam 0.5 mg 09/08/24 19:44 09/11/24 17:49 Lorazepam Inj (*Crx) 2 Mg/Ml Vial IV PUSH 0.5 mg Q6H PRN Administration Anxiety Ondansetron HCl 4 mg 09/08/24 00:14 09/11/24 02:53 Ondansetron Inj 4 Mg/2 Ml Vial IV PUSH 4 mg Q4H PRN Administration Nausea Oxycodone/Acetaminophen 1 tablet 09/11/24 10:24 Oxycodone/Acetaminophen (*Crx) 5-325 Mg Tablet PO Q4H PRN Pain Rated 4-6 Oxycodone/Acetaminophen 1 tab 09/11/24 10:24 09/11/24 16:56 Oxycodone/Acetaminophen (*Crx) 10-325 Mg Tablet PO 1 tab Q4H PRN Administration Pain Rated 7-10 Trazodone HCl 50 mg 09/11/24 18:38 Trazodone Hcl 50 Mg Tablet PO HS PRN Insomnia Radiology Results: ITS Impressions Catheter Placement CT 09/08/24 14:14 IMPRESSION: 1[address] Successful CT-guided upsizing to 12 Haitian of a prior 8.5 Haitian left lower quadrant percutaneous abscess drain.. 2. The catheter will be managed by Dr. Vences. 3. Patent fistulous draining tract with small amount of the water-soluble contrast injected into the percutaneous abscess drain extending into the proximal sigmoid colon and refluxing proximally into the distal descending colon. Abdomen/Pelvis CT 09/10/24 08:53 IMPRESSION: 1. Interval upsizing of a left lower quadrant percutaneous abscess drain within a residual 2.2 x 1.9 cm abscess cavity located within a larger region of phlegmonous change with smaller of a communicating extension of the abscess. No other drainable abscess is identified. 2. Small amount of likely reactive nonorganized appearing free fluid in the deep pelvis. 3. Focal wall thickening and narrowing of the lumen of the proximal sigmoid colon potentially representing a stricture related to diverticulitis which is located at the site of a previous identified draining sinus tract evident at the time of the drainage catheter exchange. Imaging Attestation: I personally reviewed and interpreted this imaging study as follows: (CT scans abdomen and pelvis from 09/07 and 09/10) My impression: Improved left lower quadrant abscess, involves abdominal wall Radiologist's impression: Same
[2024-09-11 20:30] VITALS: PULSE 84; RESP 16; O2SAT 100
[2024-09-11 20:39] VITALS: BP 104/70; PULSE 84; RESP 16; TEMP 36.4; O2SAT 100
[2024-09-11 20:50] LABS: Carcinoembryonic Antigen 3.9 ng/mL (0.0-3.0)
[2024-09-11] MEDS: LACTATED RINGERS 1,000 ML 80 ML IV CONT (21:46)
[2024-09-12] VITALS (19 sets, daily range): BP systolic 96–129; BP diastolic 55–78; PULSE 57–96; RESP 14–25; TEMP 36.1–37.3; O2SAT 96–100
[2024-09-12] MEDS: HYDROmorphone HCL INJ (*CRX) 1 MG/ML SYR IV PUSH ×2 (03:10→05:49)
[2024-09-12] MEDS: ONDANSETRON INJ 4 MG/2 ML VIAL IV PUSH (03:10)
[2024-09-12] MEDS: PIPERACILLN/TAZ 3.375GM/NS50ML 3.375 GM/50 ML BAG IVPB ×4 (03:39→22:28)
[2024-09-12 05:55] LABS: Hematocrit 24.4 % (37.0-47.0); Hemoglobin 7.7 g/dL (12.0-15.0); Mean Corpuscular HGB Conc 31.6 g/dl (32-36); Mean Corpuscular Hemoglobin 26.9 pg (26-34); Mean Corpuscular Volume 85.3 fl (80-100); Mean Platelet Volume 8.7 fl (7.4-10.4); Platelet Count Result 396 k/mm3 (150-375); Red Blood Count 2.86 M/mm3 (4.2-5.4); Red Cell Distribution Width 14.2 % (11.5-14.5); White Blood Count 8.1 K/mm3 (4.5-10.0)
[2024-09-12 06:05] LABS: Anion Gap 9 mmol/L (4-12); Calcium 8.2 mg/dL (8.4-10.2); Carbon Dioxide 24 mmol/L (22-30); Chloride 103 mmol/L (98-107); Estimated CRCL calculation 106 ml/min; Estimated Glomerular Filt Rate > 60; Glucose 95 mg/dL (65-110); Potassium 3.5 mmol/L (3.4-5.0); Sodium 136 mmol/L (137-145)
[2024-09-12 06:30] LABS: Blood Urea Nitrogen < 2 mg/dL (7-17)
--- NOTE | 2024-09-12 08:09 | WPDANESEPPF ---
Anes - Initial Pre Proc Eval Procedure: Operation Date: 09/08/24 11:00 Proposed Procedures p Comp Tomography Guide Abscess Cath Placement - Marco A Alvarado MD Operation Date: 09/12/24 09:00 Proposed Procedures p Open Sigmoidectomy, Possible Colostomy or Ileostomy - Aguilar Lang MD Date/Time: 09/12/24 08:09 Surgeon: Elham Vences MD Pre Op Diagnosis: Diverticulitis w Colocutaneous Fistula Patient Data Age: 33 Gender: F Height: 1.57 m Weight: 50 kg Last Vital Signs Temp 36.6 C 09/12/24 05:21 Pulse 84 09/12/24 05:21 Resp 14 09/12/24 05:21 BP 101/61 09/12/24 05:21 Pulse Ox 96 09/12/24 05:21 O2 Del Method Room Air 09/11/24 20:30 O2 Flow Rate 2 09/08/24 12:40 Allergies Allergy/AdvReac Type Severity Reaction Status Date / Time No Known Allergies Allergy Verified 09/08/24 01:04 Home Medications Medication Instructions Recorded Confirmed Type amoxicillin 875 mg-potassium 1 tablet PO Q12H #10 tabs 09/03/24 09/08/24 Rx clavulanate 125 mg tablet ketorolac 10 mg tablet 10 mg PO Q6H 4 days #16 tabs 09/03/24 09/08/24 Rx oxycodone-acetaminophen 5 mg-325 0.5 - 1 tablet PO Q6H PRN pain #20 09/03/24 09/08/24 Rx mg tablet tabs ondansetron 4 mg disintegrating 4 mg PO Q8H 09/08/24 09/08/24 History tablet Laboratory Tests 09/11/24 09/12/24 20:02 05:45 WBC 8.1 K/mm3 (4.5-10.0) RBC 2.86 L M/mm3 (4.2-5.4) Hgb 7.7 L g/dL (12.0-15.0) Hct 24.4 L % (37.0-47.0) MCV 85.3 fl (80-100) MCH 26.9 pg (26-34) MCHC 31.6 L g/dl (32-36) RDW 14.2 % (11.5-14.5) Plt Count 396 H k/mm3 (150-375) MPV 8.7 fl (7.4-10.4) Sodium 136 L mmol/L (137-145) Potassium 3.5 mmol/L (3.4-5.0) Chloride 103 mmol/L (98-107) Carbon Dioxide 24 mmol/L (22-30) Anion Gap 9 mmol/L (4-12) BUN < 2 L mg/dL (7-17) Creatinine 0.50 L mg/dL (0.7-1.0) Estim Creat Clear Calc 106 ml/min Estimated GFR > 60 (59 - ) Glucose 95 mg/dL (65-110) Calcium 8.2 L mg/dL (8.4-10.2) Carcinoembryonic Ag 3.9 H ng/mL (0.0-3.0) Blood Type O Negative Antibody Screen Negative Patient hx anesthesia problems: none Family hx anesthesia problems: none Results Review: All pre-operative results and documents have been reviewed as part of the pre-operative evaluation. [facility] Past Medical History Medical History (Updated 09/12/24 @ 08:09 by Andres Gillis MD) Anxiety Asthma in childhood, resolved Colocutaneous fistula Diverticulitis of large intestine with abscess Fecal peritonitis Surgical History Surgical History H/O gynecological procedure Mirena IUD insertion Family History Family History Mother Diverticulitis Father Heart problem Social History Social History Years smoked: 15 Smoking status: Current every day smoker Tobacco type: e-cigarettes/vaping Second hand tobacco smoke exposure: Yes Alcohol intake: never Substance use type: marijuana and other Other substance usage details: Vape Do You Feel Safe in your Home?: Yes Lack of Transportation: No Lack of Food: Never True Current Housing: I Have Housing Concerned About Future Housing: No Difficulty Paying Gas/Electric Bills: YES Difficulty Paying for Meds: No Currently Unemployed: YES Education: High School Diploma/GED Difficulty w/ Childcare or Family Care: No Occupation/Education: occupation Gender identity (if verbalized by the patient): Female Spiritual care concerns: No Anes - Eval Final PreProcedure Day of Procedure 09/12/24 08:09 Patient weight: normal Heart: regular rate and rhythm Lungs: clear to auscultation Airway: Mallampati scale class II Neurological: alert and oriented Last oral intake: >/= 8 hours ASA classification: II Emergent: no Anesthetic plan: proceed Anesthesia type and monitoring: general ETT and standard monitoring Results Review: All pre-operative results and documents have been reviewed as part of the pre-operative evaluation. Informed Consent: The patient's anesthetic plan and its attendant risks and benefits were discussed with the patient/family/POA. Questions were solicited and answers provided to the satisfaction of the patient/family/POA.
[2024-09-12] MEDS: MIDAZOLAM HCL (*CRX) 2 MG/2 ML VIAL IV PUSH (08:23)
--- NOTE | 2024-09-12 08:28 | WPDHPUPDATE1 ---
History and Physical Update Update Date/Time: 09/12/24 08:28 History and Physical has been reviewed, including an updated exam of the patient. There are NO changes in the patient's condition. Risks, benefits, and alternatives have been discussed and questions answered. Patient agrees to proceed with procedure.
[2024-09-12 08:54] LABS: BEDSIDEPREGUCG Negative (Negative)
[2024-09-12] MEDS: LACTATED RINGERS 1,000 ML 30 ML IV CONT ×2 (09:00→12:48)
[2024-09-12] MEDS: HYDROmorphone HCL INJ (*CRX) 1 MG/ML SYR 0.25 MG IV PUSH ×8 (13:03→13:53)
[2024-09-12] MEDS: HALOPERIDOL LACTATE 5 MG/ML VIAL 2 MG IV PUSH (13:14)
--- NOTE | 2024-09-12 13:28 | W.PM.PROC2 ---
Procedure Note - Detailed Date of Procedure 09/12/24 Pre-op Diagnosis Diverticulitis w/abscess, colocutaneous fistula, abdominal wall abscess Post-op Diagnosis Same Procedure Performed Sigmoid colon resection with hand-sewn end-to-end anastomosis, drainage abdominal wall abscess Surgeon Aguilar Lang MD Refrigeration Supervisor Barbie Smith EMBOSSER OPERATOR, Meaganharinder Richey [facility] Anesthesia General Indications Patient has been suffering from lower abdominal pain with CT evidence of diverticulitis with abscess for several weeks. She came back in earlier this month with a 5 cm abscess. This was able to be percutaneously drained. 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 There was also abdominal wall abscess associated with this colocutaneous fistula, presumptive source is diverticulitis by imaging. CEA was within normal limits for a smoker. Patient has liquid stool draining out only through the percutaneous catheter but also around it to the point that an ostomy appliance and bag had to be placed over the exit site of the drain. After thorough discussion, she is taken to surgery now for sigmoidectomy and likely colostomy or ileostomy with drainage of abdominal wall abscess. Findings There was no free fecal matter in the abdominal cavity. The sigmoid colon with the perforated area was solidly adherent to the anterior abdominal wall opposite the pigtail catheter drain. Omentum was also surrounding the adherent area of sigmoid colon and abdominal wall. The colon proximal to this and the large intestine and rectum distal to this were pliable and healthy. Although diversion was anticipated, resection and anastomosis was able to be performed. The anterior abdominal wall had evidence of infection with tissue destruction throughout. Due to concerns that this may be a malignancy, the sigmoid colon was excised with appropriate margins and an appropriate amount of mesenteric resection including and down to the origin of the inferior mesenteric artery. The thickened peritoneum where the colon had been attached to the abdominal wall was excised for about a 1 cm segment around the adherent area. The omentum that had also been adherent to the perforated segment of sigmoid colon was also excised and sent as a specimen. There was no gross evidence of metastatic disease on abdominal exploration should this be a tumor. We did send a specimen to pathology and grossly they felt it was most consistent with a neoplasm. Description of Procedure Patient was taken to surgery and induced into general anesthesia. Walker catheter was placed. The abdomen was prepped and draped. Under anesthesia of the colostomy appliance and the rest of the pigtail catheter in the left lower quadrant were removed. The entire abdomen was prepped and a Ray-Diogenes sponge was placed over the drain site with Ioban being placed over the abdomen after the towels had been in place. Midline incision was made starting just above the umbilicus and proceeding down to nearly the pubis. Cautery was used for hemostasis. We opened the fascia in the midline and then entered the peritoneal cavity. There was no odor or gross evidence of fecal material on entering the abdomen. General abdominal exploration was carried out. There were no nodes enlarged and the liver was normal by palpation. The sigmoid colon with the area of perforation was densely adherent to the anterior abdominal wall on the same side and in conjunction with the pigtail catheter site. Small intestine was packed away from the sigmoid colon and pelvis. I gently started to break the adhesions of the sigmoid from the anterior abdominal wall. This was done initially on the left anterior aspect. Liquid stool was evident from the bowel but was quickly suctioned away so that spillage was minimal. From there I was able to continue dissecting this off the abdominal wall. When any stool was seen it was suctioned away and no significant spillage occurred at all. Eventually the entire perforated area of sigmoid was taken off the anterior abdominal wall. I did use 4-0 silk suture and partially occluded the area of perforation although another area was still evident. The area that I sutured closed was the area where the previous stool had been coming from. This kept the sigmoid from leaking throughout the rest of the surgery. I then placed the patient in Trendelenburg with the left side elevated. Lateral peritoneal attachments to the sigmoid colon were then taken down so that it could be mobilized to the midline. This was also carried out with the proximal and mid descending colon. The left ureter was carefully found and was protected throughout the surgery. In the area of the sacral promontory, additional mobilization of the intra-abdominal rectum was carried out. Dissection across the sacral promontory was carried out and this dissection was carried through the peritoneum from the patient's left side to the right. I used the cautery and exposed the mesentery to the distal sigmoid in per rectum. An area of distal sigmoid which was at least 5 cm from the mass was chosen. I divided the mesentery including the superior rectal artery up to this portion of distal sigmoid. After freeing the attached mesentery to the distal sigmoid, I used a TLC 75 stapler and divided the distal sigmoid in this area. I then scored the mesentery on the medial aspect to the area of the perforation and on medially toward the splenic flexure. I was able to find the inferior mesenteric artery. I dissected out the inferior mesenteric artery near its origin from the aorta and then and divided it with the LigaSure. I then chose an area at least 5 cm proximal to the perforated portion of the sigmoid and used the LigaSure to divide the mesentery up to this point. This was in the distal to mid descending colon. I divided this with the 75 TLC stapler as well. I then passed the specimen off to pathology with the corresponding mesenteric nodes. The specimen was sent to pathology for just a gross impression, not a frozen section. Pathologist reported back that this appeared to be more of a neoplasm than diverticulitis. There were no palpable or suspicious nodes to my inspection and palpation. I then proceeded to mobilize more of the descending colon mesentery and divided additional lateral peritoneal attachments to the descending colon. I did not take down the splenic flexure. Care was taken again not to injure the ureter.. Eventually this mobilization gave adequate length for anastomosis to the distal descending colon. I did not really see any diverticula in the sigmoid colon. The 2 ends of bowel came together without tension and appeared to be well vascularized. I then proceeded with a 2 layer hand-sewn end-to-end anastomosis. The posterior outer layer was completed with interrupted Lembert sutures of 4-0 silk. I placed noncrushing bowel clamps distal and proximal to the staple lines on each bowel end. I then removed the staple line from each end of the bowel. Any stool in the bowel was suctioned away. The suction was then changed out for a clean Yankauer suction. The posterior inner layer was began with bidirectional running locking suture of 4-0 chromic. Each corner and then the anterior inner layer was completed with inverting continuous suture or Franklin sutures. The 2 sutures were tied together in the midline. All looked good. The noncrushing bowel clamps were removed. The anterior outer layer was then completed with interrupted Lembert suture of 4-0 silk. The anastomosis looked good. It appeared to be under no tension with the bowel well vascularized. There was a nice palpable lumen as well. We then irrigated the pelvis thoroughly with a couple of L of warm saline. I brought up the omentum that was attached to the sigmoid colon where it was adherent to the anterior abdominal wall. I excised all of this omentum but left quite a bit of omentum as well. I placed silk sutures on the side of the omentum that had been adherent to the colon perforation to identify that for the pathologist. I then turned my attention to area where the colon had been attached to the anterior abdominal wall. I removed about 1 cm of thickened peritoneum circumferentially from this area. The peritoneum, even though thickened, was friable and did not come off as a nice circular piece. It was submitted as fragments with some of the devitalized and infected aspects of the abdominal wall created by the perforation and abscess. I removed this portion of the abdominal wall so that there would be little or no aspects of infected material left. I then used cautery for hemostasis. This was not completely effective. I then used Surgiflo and filled this area of abdominal wall. I held pressure with the Surgiflo place for 2 or 3 minutes. At after it appeared to be quite hemostatic. There was no intra-abdominal abscess that would require a postoperative drain. The only abscess was the area of perforation and associated anterior abdominal wall. The abdominal contents were then placed back in the abdomen in there usual anatomic location. The omentum was positioned anteriorly over the abdominal viscera. 0 chromic suture was used to close the peritoneum from pubis up to the semicircular line. Number 1 running PDS suture was used to close the midline fascia in bidirectional fashion. The subcutaneous was closed with interrupted 3-0 Vicryl suture. The skin was loosely approximated with subcuticular interrupted 4-0 Vicryl suture. We quarantined the incision. I then went to the patient's left side and inspected the area where the pigtail catheter had been. After probing this area, it was obvious that there was a tract running down to the lateral abdominal wall. This tract had been contaminated by stool and was essentially the anterior portion of the abdominal wall abscess. I divided the skin overlying the tract with a cruciate type incision. I then thoroughly irrigated the tract with warm saline. The tract was then packed with 1 in iodoform Nu Gauze. Fluffs were used to cover the abscess as well as the midline incision. Dressings were kept in place with Medipore tape. Patient was then awakened. Walker catheter was removed. She was transferred to recovery in good condition. Sponge and needle counts were correct x2. Estimated Blood Loss -50 Urine Output 1,000 Drains No Packing Yes (Left lower quadrant abscess packed with 1 in iodoform Nu Gauze) Pathology Yes (Sigmoid colon, attached omentum and attached peritoneum of the abdominal wall associated with colon perforation) Complications None Condition Stable Disposition PACU [facility] Billing Surgery - Charge Forward: Surgery Billing (Sigmoid colectomy with hand-sewn end-to-end anastomosis, drainage abdominal wall abscess)
[2024-09-12] MEDS: HYDROmorphone HCL INJ (*CRX) 1 MG/ML SYR 0.5 MG IV PUSH ×2 (14:40→14:45)
[2024-09-12] MEDS: IBUPROFEN IV 800 MG/200 ML 800 MG/200 ML BAG 400 MG IVPB ×2 (15:25→21:51)
[2024-09-12] MEDS: LACTATED RINGERS 1,000 ML 100 ML IV CONT (15:25)
[2024-09-12] MEDS: MORPHINE SULFATE PCA (*CRX) 30 MG/30 ML SYR IV CONT (15:44)
[2024-09-12] MEDS: FAMOTIDINE 20 MG TABLET PO (21:51)
[2024-09-12] MEDS: LIDOCAINE 5% PATCH 1 PATCH TRANSDERM (22:28)
[2024-09-12] MEDS: MORPHINE SULFATE IV CONT (22:28)
[2024-09-12] MEDS: SODIUM CHLORIDE 0.9% IV CONT (22:28)
[2024-09-13] VITALS (9 sets, daily range): BP systolic 94–102; BP diastolic 54–63; PULSE 62–88; RESP 12–16; TEMP 36.1–36.3; O2SAT 95–99
[2024-09-13] MEDS: IBUPROFEN IV 800 MG/200 ML 800 MG/200 ML BAG 400 MG IVPB ×4 (02:12→20:16)
[2024-09-13] MEDS: LACTATED RINGERS 1,000 ML 100 ML IV CONT (02:13)
[2024-09-13] MEDS: PIPERACILLN/TAZ 3.375GM/NS50ML 3.375 GM/50 ML BAG IVPB ×4 (03:44→21:00)
[2024-09-13 06:49] LABS: Hematocrit 23.3 % (37.0-47.0); Hemoglobin 7.1 g/dL (12.0-15.0); Mean Corpuscular HGB Conc 30.5 g/dl (32-36); Mean Corpuscular Hemoglobin 26.9 pg (26-34); Mean Corpuscular Volume 88.3 fl (80-100); Mean Platelet Volume 9.3 fl (7.4-10.4); Platelet Count Result 477 k/mm3 (150-375); Red Blood Count 2.64 M/mm3 (4.2-5.4); Red Cell Distribution Width 14.4 % (11.5-14.5); White Blood Count 10.8 K/mm3 (4.5-10.0)
[2024-09-13] MEDS: ONDANSETRON INJ 4 MG/2 ML VIAL IV PUSH ×3 (06:50→18:15)
[2024-09-13 07:02] LABS: Anion Gap 6 mmol/L (4-12); Calcium 8.3 mg/dL (8.4-10.2); Carbon Dioxide 26 mmol/L (22-30); Chloride 105 mmol/L (98-107); Estimated CRCL calculation 106 ml/min; Estimated Glomerular Filt Rate > 60; Glucose 116 mg/dL (65-110); Potassium 3.4 mmol/L (3.4-5.0); Sodium 137 mmol/L (137-145)
[2024-09-13 07:14] LABS: Blood Urea Nitrogen < 2 mg/dL (7-17)
[2024-09-13] MEDS: ENOXAPARIN 40 MG/0.4 ML SYRINGE SUB-Q (09:59)
[2024-09-13] MEDS: FAMOTIDINE 20 MG TABLET PO ×2 (09:59→20:16)
[2024-09-13] MEDS: BUMETANIDE INJ 1 MG/4 ML VIAL 2 MG IV PUSH (10:54)
[2024-09-13] MEDS: KCL 40 MEQ/0.9% SOD CHL 1,000 ML 50 ML IV CONT (10:55)
[2024-09-13] MEDS: POTASSIUM CHLORIDE 20 MEQ ER TABLET 40 MEQ PO (10:55)
[2024-09-13] MEDS: LORazepam INJ (*CRX) 2 MG/ML VIAL 0.5 MG IV PUSH (10:55)
--- NOTE | 2024-09-13 14:34 | PM.PNGS ---
Progress Note: A&P Assessment and Plan (1) Colon perforation: Code(s): K63.1 - Perforation of intestine (nontraumatic) Status: Acute Assessment and Plan: Had a rough night with postoperative pain and nausea but no vomiting. Feeling a little better today with still incisional pain. Nausea has been gone since early this morning. Wounds look good. Continue clear liquids in small amounts. Up in chair today. Recheck labs and exam again tomorrow. Discussed with patient the possibility that this may be due to a neoplasm rather than diverticulitis. Explained that pathology did look at the specimen and it appeared there was a mass but no frozen section and no definitive diagnosis have yet been made. Her focus now should be on recovering from surgery. 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 Left lower quadrant abscess cavity packed (3) Abdominal wall abscess: Code(s): L02.211 - Cutaneous abscess of abdominal wall Status: Acute Assessment and Plan: Packed from surgery. Will change packing tomorrow. (4) Anemia: Qualifiers: Other causes of anemia: chronic disease, other Code(s): D64.9 - Anemia, unspecified Status: Chronic Assessment and Plan: Anemia is most likely from chronic disease. Also some dilutional aspects are causative as well. Patient lost very little blood during surgery. She has been receiving IV fluids for several days. I will go ahead and give her a dose of Bumex. Her potassium is low and I will supplement her potassium as well. Continue to follow blood counts and electrolytes closely. Subjective Subjective Date/Time Seen: 09/13/24 14:34 Post Op day: 1 Patient reports: still having pain, voiding w/o difficulty, no flatus, no bowel movement, nausea and afebrile Exam Const: General: cooperative, comfortable, alert, awake and thin Orientation/consciousness: patient oriented x3 and No confusion GI: Inspection: no abdominal wall ecchymosis, non-distended, incision (Clean and healing, serous drainage) and scaphoid GI Palp: Yes Soft to palpation, Yes Tenderness to palpation present (GI), No Hernia present and No Palpable mass present Auscultation: normoactive bowel sounds Objective Data Vital Signs Vital Signs: Vital Signs - 24 hr 09/12/24 14:45 09/12/24 15:02 09/12/24 15:32 Temperature 37.3 C 36.1 C L 36.1 C L Pulse Rate 72 74 84 Respiratory Rate 16 14 14 Blood Pressure 116/74 112/68 117/72 Pulse Oximetry 98 97 98 Oxygen Delivery Room Air 09/12/24 15:25 09/12/24 16:32 09/12/24 16:30 Temperature 36.4 C L Pulse Rate 71 Respiratory Rate 20 20 Blood Pressure 105/66 Pulse Oximetry 99 99 Oxygen Delivery Room Air 09/12/24 20:51 09/12/24 22:28 09/12/24 21:30 Temperature 36.2 C L Pulse Rate 73 80 Respiratory Rate 16 16 Blood Pressure 104/63 Pulse Oximetry 97 Oxygen Delivery Room Air 09/12/24 22:30 09/12/24 23:55 09/13/24 02:00 Temperature Pulse Rate 76 71 74 Respiratory Rate 14 14 16 Blood Pressure Pulse Oximetry Oxygen Delivery 09/13/24 00:32 09/13/24 04:00 09/13/24 04:32 Temperature 36.1 C L 36.1 C L Pulse Rate 75 64 63 Respiratory Rate 16 12 16 Blood Pressure 94/54 L 96/57 L Pulse Oximetry 96 99 Oxygen Delivery 09/13/24 06:00 09/13/24 11:51 Temperature 36.3 C L Pulse Rate 64 74 Respiratory Rate 14 16 Blood Pressure 102/57 L Pulse Oximetry 98 Oxygen Delivery Intake/Output Intake/Output: Intake & Output 09/10/24 09/11/24 09/12/24 09/13/24 23:59 23:59 23:59 23:59 Intake Total 2440 618 2600 1720 Output Total 607 1180 1150 Balance 1833 -562 1450 1720 Meds/Results Medications: Active Medications Generic Name Dose Route Start Last Admin Trade Name Freq PRN Reason Stop Dose Admin Acetaminophen 500 mg 09/12/24 14:47 Acetaminophen 500 Mg Tablet PO Q6H PRN Pain Rated 1-3 Enoxaparin Sodium 40 mg 09/10/24 09:00 09/13/24 09:59 Enoxaparin 40 Mg/0.4 Ml Syringe SUB-Q 40 mg DAILY FIDELIA Administration Famotidine 20 mg 09/12/24 21:00 09/13/24 09:59 Famotidine 20 Mg Tablet PO 20 mg Q12HR FIDELIA Administration Piperacillin/Tazobactam/Dextrose 3.375 gm in 50 mls @ 100 mls/hr 09/08/24 15:00 09/13/24 10:29 Zosyn 3.375 Gm/Ns 50 Ml IVPB Infused Q6H FIDELIA Infusion Ibuprofen 800 mg in 200 mls @ 400 mls/hr 09/12/24 15:00 09/13/24 08:30 Caldolor 800 Mg/200 Ml IVPB Infused Q6H FIDELIA Infusion Morphine Sulfate 150 mg/ 30 mls @ 0.2 mls/hr 09/12/24 18:15 09/13/24 06:00 Sodium Chloride IV CONT 2 mg/hr PRN PRN 0.4 mls/hr Pain management Titration Protocol 1 MG/HR Potassium Chloride/Sodium Chloride 1,000 mls @ 50 mls/hr 09/13/24 09:45 09/13/24 10:55 Kcl 40 Meq/Ns IV CONT 50 mls/hr .Q20H FIDELIA Administration Lidocaine 1 patch 09/12/24 21:50 09/13/24 10:54 Lidocaine 5% Patch TRANSDERM Not Given DAILY FIDELIA Lorazepam 0.5 mg 09/08/24 19:44 09/13/24 10:55 Lorazepam Inj (*Crx) 2 Mg/Ml Vial IV PUSH 0.5 mg Q6H PRN Administration Anxiety Naloxone HCl 0.4 mg 09/12/24 18:15 Naloxone Hcl 0.4 Mg/Ml Vial IV PUSH PRN PRN Opioid Reversal Ondansetron HCl 4 mg 09/08/24 00:14 09/13/24 09:51 Ondansetron Inj 4 Mg/2 Ml Vial IV PUSH 4 mg Q4H PRN Administration Nausea Potassium Chloride 20 meq 09/13/24 17:00 Potassium Chloride 20 Meq Er Tablet PO BIDWM FIDELIA Trazodone HCl 50 mg 09/11/24 18:38 Trazodone Hcl 50 Mg Tablet PO HS PRN Insomnia Radiology Results: ITS Impressions Catheter Placement CT 09/08/24 14:14 IMPRESSION: 1. Successful CT-guided upsizing to 12 [place] of a prior 8.5 [place] left lower quadrant percutaneous abscess drain.. 2. The catheter will be managed by Dr. Vences. 3. Patent fistulous draining tract with small amount of the water-soluble contrast injected into the percutaneous abscess drain extending into the proximal sigmoid colon and refluxing proximally into the distal descending colon. Abdomen/Pelvis CT 09/10/24 08:53 IMPRESSION: 1. Interval upsizing of a left lower quadrant percutaneous abscess drain within a residual 2.2 x 1.9 cm abscess cavity located within a larger region of phlegmonous change with smaller of a communicating extension of the abscess. No other drainable abscess is identified. 2. Small amount of likely reactive nonorganized appearing free fluid in the deep pelvis. 3. Focal wall thickening and narrowing of the lumen of the proximal sigmoid colon potentially representing a stricture related to diverticulitis which is located at the site of a previous identified draining sinus tract evident at the time of the drainage catheter exchange. Labs Labs: Laboratory Results - last 24 hr 09/13/24 06:44 WBC 10.8 H RBC 2.64 L Hgb 7.1 L Hct 23.3 L MCV 88.3 MCH 26.9 MCHC 30.5 L RDW 14.4 Plt Count 477 H MPV 9.3 Sodium 137 Potassium 3.4 Chloride 105 Carbon Dioxide 26 Anion Gap 6 BUN < 2 L Creatinine 0.50 L Estim Creat Clear Calc 106 Estimated GFR > 60 Glucose 116 H Calcium 8.3 L
[2024-09-13] MEDS: POTASSIUM CHLORIDE 20 MEQ ER TABLET PO (18:00)
[2024-09-13] MEDS: PROCHLORPERAZINE EDISYLATE 10 MG/2 ML VIAL IV PUSH (22:09)
[2024-09-14 00:10] VITALS: PULSE 60; RESP 14
[2024-09-14] MEDS: MORPHINE SULFATE IV CONT (00:10)
[2024-09-14] MEDS: SODIUM CHLORIDE 0.9% IV CONT (00:10)
[2024-09-14] MEDS: IBUPROFEN IV 800 MG/200 ML 800 MG/200 ML BAG 400 MG IVPB ×4 (02:10→19:47)
[2024-09-14] MEDS: PIPERACILLN/TAZ 3.375GM/NS50ML 3.375 GM/50 ML BAG IVPB ×4 (02:57→21:46)
[2024-09-14 05:15] VITALS: BP 95/58; PULSE 62; RESP 18; TEMP 36.8; O2SAT 96
[2024-09-14 06:26] LABS: Hematocrit 22.6 % (37.0-47.0); Mean Corpuscular HGB Conc 30.5 g/dl (32-36); Mean Corpuscular Hemoglobin 26.8 pg (26-34); Mean Corpuscular Volume 87.9 fl (80-100); Mean Platelet Volume 9.4 fl (7.4-10.4); Platelet Count Result 396 k/mm3 (150-375); Red Blood Count 2.57 M/mm3 (4.2-5.4); Red Cell Distribution Width 14.4 % (11.5-14.5); White Blood Count 6.1 K/mm3 (4.5-10.0)
[2024-09-14 06:35] LABS: Hemoglobin 6.9 g/dL (12.0-15.0)
[2024-09-14 06:49] LABS: Anion Gap 3 mmol/L (4-12); Calcium 8.3 mg/dL (8.4-10.2); Carbon Dioxide 30 mmol/L (22-30); Chloride 106 mmol/L (98-107); Estimated CRCL calculation 106 ml/min; Estimated Glomerular Filt Rate > 60; Glucose 92 mg/dL (65-110); Potassium 3.4 mmol/L (3.4-5.0); Sodium 139 mmol/L (137-145)
[2024-09-14 07:00] LABS: Blood Urea Nitrogen < 2 mg/dL (7-17)
[2024-09-14] MEDS: POTASSIUM CHLORIDE 20 MEQ ER TABLET PO ×2 (09:15→16:08)
[2024-09-14] MEDS: FAMOTIDINE 20 MG TABLET PO ×2 (09:15→19:47)
[2024-09-14] MEDS: KCL 40 MEQ/0.9% SOD CHL 1,000 ML 50 ML IV CONT (11:01)
[2024-09-14] MEDS: ENOXAPARIN 40 MG/0.4 ML SYRINGE SUB-Q (11:03)
[2024-09-14] MEDS: LIDOCAINE 5% PATCH 1 PATCH TRANSDERM (11:20)
[2024-09-14] MEDS: ONDANSETRON INJ 4 MG/2 ML VIAL IV PUSH (11:55)
[2024-09-14] MEDS: LORazepam INJ (*CRX) 2 MG/ML VIAL 0.5 MG IV PUSH (12:45)
[2024-09-14 14:00] VITALS: BP 129/76; PULSE 108; RESP 20; TEMP 36.7; O2SAT 94
[2024-09-14] MEDS: BUMETANIDE INJ 1 MG/4 ML VIAL 2 MG IV PUSH (14:21)
--- NOTE | 2024-09-14 14:21 | P.PNGS_ITS ---
Progress Note: A&P Assessment and Plan (1) Colon perforation: Code(s): K63.1 - Perforation of intestine (nontraumatic) Status: Acute Assessment and Plan: Sigmoidectomy with anastomosis seems to be healing well. Patient is still having considerable postoperative pain, mostly this is in the right lower quadrant which is somewhat unusual considering very little of the surgery was done in that area. Despite the tenderness, she has good bowel sounds and no abdominal distension. Her abdominal incision is healing well. She has been getting nausea but thinks that might be from some of the salty broth with color liquid diet. I will reduce her INSURANCE SALES AGENT bolus dose to 1 mg and continue with 1 milligram/hour basal dose. Advance to full liquid diet. Continued scheduled dose of IV ibuprofen. Recheck labs and exam again tomorrow. 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 (3) Abdominal wall abscess: Code(s): L02.211 - Cutaneous abscess of abdominal wall Status: Acute Assessment and Plan: Left lower quadrant abscess at exit site of pigtail catheter. This goes through almost the entire abdominal wall. The packing was removed today. The wound looks clean with no evidence of purulence or tissue necrosis. It was repacked with 1 in iodoform Nu Gauze and redressed today. (4) Anemia: Qualifiers: Other causes of anemia: chronic disease, other Anemia type: other cause Qualified Code(s): D63.8 - Anemia in other chronic diseases classified elsewhere Code(s): D64.9 - Anemia, unspecified Status: Chronic Assessment and Plan: Hemoglobin dipped below 7 today. Her blood pressure is stable and she is not tachycardic. Her only complaints was when getting up is that her abdomen hurts. I think a significant portion of the anemia is due to dilution. Will give another dose of Bumex today and continue to follow H&H closely. I do not see any signs of intra-abdominal bleeding. Subjective Subjective Date/Time Seen: 09/14/24 14:21 Post Op day: 3 Patient reports: still having pain (Slightly better, more in the right lower quadrant than elsewhere), voiding w/o difficulty, flatus, no bowel movement, nausea and afebrile Exam Const: General: cooperative, comfortable, no acute distress, alert, awake, anxious and thin Nutritional Appearance: thin Orientation/consciousness: patient oriented x3 GI: Inspection: Abdominal wall edema, non-distended, incision (Serous drai nage, looks good), scaphoid, no visible herniation and other (Left lower quadrant abscess clean and starting to heal, repacked) GI Palp: Yes Soft to palpation, Yes Tenderness to palpation present (GI), No Guarding due to palpation present (GI) and No Rebound tenderness present Auscultation: normal bowel sounds Neuro: General: patient oriented x3 and no focal motor deficits Extrem: General: no calf tenderness and no edema Psych: Affect: normal affect Insight: Good insight present (Psych) Judgement: Good judgement present (Psych) Objective Data Vital Signs Vital Signs: Vital Signs - 24 hr 09/13/24 15:49 09/13/24 16:05 09/13/24 20:41 Temperature 36.3 C L 36.2 C L Pulse Rate 62 77 88 Respiratory Rate 16 12 16 Blood Pressure 95/63 L 100/61 Pulse Oximetry 95 95 Oxygen Delivery 09/14/24 00:10 09/14/24 00:10 09/13/24 20:30 Temperature Pulse Rate 60 60 Respiratory Rate 14 14 Blood Pressure Pulse Oximetry Oxygen Delivery Room Air 09/14/24 05:15 Temperature 36.8 C Pulse Rate 62 Respiratory Rate 18 Blood Pressure 95/58 L Pulse Oximetry 96 Oxygen Delivery Intake/Output Intake/Output: Intake & Output 09/11/24 09/12/24 09/13/24 09/14/24 23:59 23:59 23:59 23:59 Intake Total 618 2600 2440 1830 Output Total 1180 1150 Balance -562 1450 2440 1830 Meds/Results Medications: Active Medications Generic Name Dose Route Start Last Admin Trade Name Freq PRN Reason Stop Dose Admin Acetaminophen 500 mg 09/12/24 14:47 Acetaminophen 500 Mg Tablet PO Q6H PRN Pain Rated 1-3 Bumetanide 2 mg 09/14/24 14:19 Bumetanide Inj 1 Mg/4 Ml Vial IV PUSH 09/14/24 14:20 ONCE ONE Enoxaparin Sodium 40 mg 09/10/24 09:00 09/14/24 11:03 Enoxaparin 40 Mg/0.4 Ml Syringe SUB-Q 40 mg DAILY FIDELIA Administration Famotidine 20 mg 09/12/24 21:00 09/14/24 09:15 Famotidine 20 Mg Tablet PO 20 mg Q12HR FIDELIA Administration Piperacillin/Tazobactam/Dextrose 3.375 gm in 50 mls @ 100 mls/hr 09/08/24 15:00 09/14/24 11:50 Zosyn 3.375 Gm/Ns 50 Ml IVPB Infused Q6H FIDELIA Infusion Ibuprofen 800 mg in 200 mls @ 400 mls/hr 09/12/24 15:00 09/14/24 12:48 Caldolor 800 Mg/200 Ml IVPB Infused Q6H FIDELIA Infusion Morphine Sulfate 150 mg/ 30 mls @ 0.2 mls/hr 09/12/24 18:15 09/14/24 00:10 Sodium Chloride IV CONT 1 mg/hr PRN PRN 0.2 mls/hr Pain management Administration Protocol 1 MG/HR Potassium Chloride/Sodium Chloride 1,000 mls @ 50 mls/hr 09/13/24 09:45 09/14/24 11:01 Kcl 40 Meq/Ns IV CONT 50 mls/hr .Q20H FIDELIA Administration Lidocaine 1 patch 09/12/24 21:50 09/14/24 11:20 Lidocaine 5% Patch TRANSDERM 1 patch DAILY FIDELIA Administration Lorazepam 0.5 mg 09/08/24 19:44 09/14/24 12:45 Lorazepam Inj (*Crx) 2 Mg/Ml Vial IV PUSH 0.5 mg Q6H PRN Administration Anxiety Naloxone HCl 0.4 mg 09/12/24 18:15 Naloxone Hcl 0.4 Mg/Ml Vial IV PUSH PRN PRN Opioid Reversal Potassium Chloride 20 meq 09/14/24 17:00 Potassium Chloride 20 Meq Er Tablet PO TID FIDELIA Prochlorperazine Edisylate 10 mg 09/13/24 21:51 09/13/24 22:09 Prochlorperazine Edisylate 10 Mg/2 Ml Vial IV PUSH 10 mg Q6H PRN Administration Nausea And Vomiting Trazodone HCl 50 mg 09/11/24 18:38 Trazodone Hcl 50 Mg Tablet PO HS PRN Insomnia Radiology Results: ITS Impressions Catheter Placement CT 09/08/24 14:[address]: 1[address]-guided upsizing to 12 American of a prior 8.5 American left lower quadrant percutaneous abscess drain.. 2. The catheter will be managed by Dr. Vences. 3. Patent fistulous draining tract with small amount of the water-soluble contrast injected into the percutaneous abscess drain extending into the proximal sigmoid colon and refluxing proximally into the distal descending colon. Abdomen/Pelvis CT 09/10/24 08:53 IMPRESSION: 1. Interval upsizing of a left lower quadrant percutaneous abscess drain within a residual 2.2 x 1.9 cm abscess cavity located within a larger region of phlegmonous change with smaller of a communicating extension of the abscess. No other drainable abscess is identified. 2. Small amount of likely reactive nonorganized appearing free fluid in the deep pelvis. 3. Focal wall thickening and narrowing of the lumen of the proximal sigmoid colon potentially representing a stricture related to diverticulitis which is located at the site of a previous identified draining sinus tract evident at the time of the drainage catheter exchange. Labs Labs: Laboratory Results - last 24 hr 09/14/24 06:05 WBC 6.1 RBC 2.57 L Hgb 6.9 L* Hct 22.6 L MCV 87.9 MCH 26.8 MCHC 30.5 L RDW 14.4 Plt Count 396 H MPV 9.4 Sodium 139 Potassium 3.4 Chloride 106 Carbon Dioxide 30 Anion Gap 3 L BUN < 2 L Creatinine 0.50 L Estim Creat Clear Calc 106 Estimated GFR > 60 Glucose 92 Calcium 8.3 L
[2024-09-14] MEDS: PROCHLORPERAZINE EDISYLATE 10 MG/2 ML VIAL IV PUSH (16:08)
[2024-09-14 18:51] VITALS: PULSE 68; RESP 16
[2024-09-14 22:00] VITALS: BP 105/65; PULSE 108; RESP 14; TEMP 37.2; O2SAT 92
[2024-09-15] MEDS: PROCHLORPERAZINE EDISYLATE 10 MG/2 ML VIAL IV PUSH (00:01)
[2024-09-15] MEDS: IBUPROFEN IV 800 MG/200 ML 800 MG/200 ML BAG 400 MG IVPB ×4 (02:03→21:47)
[2024-09-15] MEDS: PIPERACILLN/TAZ 3.375GM/NS50ML 3.375 GM/50 ML BAG IVPB ×4 (02:10→20:58)
[2024-09-15] MEDS: KCL 40 MEQ/0.9% SOD CHL 1,000 ML 50 ML IV CONT (02:10)
[2024-09-15 06:00] VITALS: BP 101/57; PULSE 67; RESP 14; TEMP 36; O2SAT 92
[2024-09-15 06:17] LABS: Hematocrit 22.9 % (37.0-47.0); Mean Corpuscular HGB Conc 29.7 g/dl (32-36); Mean Corpuscular Hemoglobin 26.2 pg (26-34); Mean Corpuscular Volume 88.1 fl (80-100); Mean Platelet Volume 9.5 fl (7.4-10.4); Platelet Count Result 470 k/mm3 (150-375); Red Cell Distribution Width 14.5 % (11.5-14.5); White Blood Count 6.3 K/mm3 (4.5-10.0)
[2024-09-15 06:25] LABS: Anion Gap 3 mmol/L (4-12); Calcium 8.3 mg/dL (8.4-10.2); Carbon Dioxide 35 mmol/L (22-30); Chloride 101 mmol/L (98-107); Estimated CRCL calculation 90 ml/min; Estimated Glomerular Filt Rate > 60; Glucose 90 mg/dL (65-110); Potassium 3.7 mmol/L (3.4-5.0); Sodium 139 mmol/L (137-145)
[2024-09-15 06:33] LABS: Blood Urea Nitrogen < 2 mg/dL (7-17)
[2024-09-15 06:39] LABS: Hemoglobin 6.8 g/dL (12.0-15.0)
[2024-09-15] MEDS: POTASSIUM CHLORIDE 20 MEQ ER TABLET PO ×3 (08:31→16:50)
[2024-09-15] MEDS: FAMOTIDINE 20 MG TABLET PO ×2 (08:31→20:55)
--- NOTE | 2024-09-15 11:33 | PM.PNGS ---
Progress Note: A&P Assessment and Plan (1) Colon perforation: Code(s): K63.1 - Perforation of intestine (nontraumatic) Status: Acute Assessment and Plan: Sigmoidectomy with anastomosis seems to be healing well. Bowel function has returned. Still complaining of RLQ abdominal pain, although it seems to be improving. Unclear why her pain is in the RLQ, but she seems to be slowly improving. Will advance to a soft diet today. I will also stop the basal rate on the Morphine MATCHBOOK MAKER and keep her bolus dose at 1 mg. Hopefully, we can discontinue the MATCHBOOK MAKER tomorrow if her pain is still controlled. Continue scheduled IV Ibuprofen. Will recheck labs and exam again tomorrow. Pathology still pending. 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 (3) Abdominal wall abscess: Code(s): L02.211 - Cutaneous abscess of abdominal wall Status: Acute Assessment and Plan: Left lower quadrant abscess at exit site of pigtail catheter. This goes through almost the entire abdominal wall. Appears to be healing well with no purulent drainage. Continue daily packing dressing changes with 1 iodoform Nu gauze. (4) Anemia: Qualifiers: Anemia type: other cause Other causes of anemia: chronic disease, other Qualified Code(s): D63.8 - Anemia in other chronic diseases classified elsewhere Code(s): D64.9 - Anemia, unspecified Status: Chronic Assessment and Plan: Hemoglobin remains low but stable at 6.8 today. She is hemodynamically stable and asymptomatic. Will diurese again today with another dose of IV Bumex and repeat labs again tomorrow. No signs of intra-abdominal bleeding, possibly dilutional. Plan I have discussed the patient's case and plan of care with Dr. Lang. Subjective Subjective Date/Time Seen: 09/15/24 11:33 Post Op day: 3 (Sigmoid colon resection with hand-sewn end-to-end anastomosis, drainage abdominal wall abscess) Patient reports: feels better, pain is less, tolerating liquids well, voiding w/o difficulty, flatus, bowel movement and afebrile Interval history: Patient is having less abdominal pain today. She reports most of her pain is in the LLQ where she has the open wound that is being packed and also intermittent pain in the RLQ. She is still having random intermittent nausea. She denies any aggravating factors. She is taking Compazine as needed and it is helping control her nausea. No vomiting. Her pain is well controlled on the Morphine MATCHBOOK MAKER. She actually reports feeling drowsy and wanting to wake up more. She is ambulating to the bathroom and doing well with this. Exam Const: General: comfortable and no acute distress Orientation/consciousness: patient oriented x3 GI: Inspection: non-distended, incision (Serous drainage, healing well, no erythema) and other (Left lower quadrant abscess clean and starting to heal, repacked) GI Palp: Yes Soft to palpation, Yes Tenderness to palpation present (GI) (LLQ and RLQ) and No Guarding due to palpation present (GI) Auscultation: normal bowel sounds Neuro: General: moves all extremities and no focal motor deficits Extrem: General: no calf tenderness and no edema Objective Data Vital Signs Vital Signs: Vital Signs - 24 hr 09/14/24 14:00 09/14/24 18:51 09/14/24 20:00 Temperature 98.1 F Pulse Rate 108 H 68 Respiratory Rate 20 16 Blood Pressure 129/76 Pulse Oximetry 94 Oxygen Delivery Room Air 09/14/24 22:00 09/15/24 06:00 Temperature 99.0 F 96.8 F L Pulse Rate 108 H 67 Respiratory Rate 14 14 Blood Pressure 105/65 101/57 L Pulse Oximetry 92 92 Oxygen Delivery Intake/Output Intake/Output: Intake & Output 09/12/24 09/13/24 09/14/24 09/15/24 23:59 23:59 23:59 23:59 Intake Total 2600 2440 2450 1257.5 Output Total 1150 800 Balance 1450 2440 2450 457.5 Meds/Results Medications: Active Medications Generic Name Dose Route Start Last Admin Trade Name Freq PRN Reason Stop Dose Admin Acetaminophen 500 mg 09/12/24 14:47 Acetaminophen 500 Mg Tablet PO Q6H PRN Pain Rated 1-3 Enoxaparin Sodium 40 mg 09/10/24 09:00 09/14/24 11:03 Enoxaparin 40 Mg/0.4 Ml Syringe SUB-Q 40 mg DAILY FIDELIA Administration Famotidine 20 mg 09/12/24 21:00 09/15/24 08:31 Famotidine 20 Mg Tablet PO 20 mg Q12HR FIDELIA Administration Piperacillin/Tazobactam/Dextrose 3.375 gm in 50 mls @ 100 mls/hr 09/08/24 15:00 09/15/24 08:31 Zosyn 3.375 Gm/Ns 50 Ml IVPB 100 mls/hr Q6H FIDELIA Administration Ibuprofen 800 mg in 200 mls @ 400 mls/hr 09/12/24 15:00 09/15/24 08:32 Caldolor 800 Mg/200 Ml IVPB 400 mls/hr Q6H FIDELIA Administration Potassium Chloride/Sodium Chloride 1,000 mls @ 50 mls/hr 09/13/24 09:45 09/15/24 02:10 Kcl 40 Meq/Ns IV CONT 50 mls/hr .Q20H FIDELIA Administration Morphine Sulfate 150 mg/ 30 mls @ 0 mls/hr 09/15/24 11:32 Sodium Chloride IV CONT PRN PRN Pain management Protocol 0 MG/HR Lidocaine 1 patch 09/12/24 21:50 09/15/24 08:33 Lidocaine 5% Patch TRANSDERM Not Given DAILY FIDELIA Lorazepam 0.5 mg 09/08/24 19:44 09/14/24 12:45 Lorazepam Inj (*Crx) 2 Mg/Ml Vial IV PUSH 0.5 mg Q6H PRN Administration Anxiety Naloxone HCl 0.4 mg 09/12/24 18:15 Naloxone Hcl 0.4 Mg/Ml Vial IV PUSH PRN PRN Opioid Reversal Potassium Chloride 20 meq 09/14/24 17:00 09/15/24 08:31 Potassium Chloride 20 Meq Er Tablet PO 20 meq TID FIDELIA Administration Prochlorperazine Edisylate 10 mg 09/13/24 21:51 09/15/24 00:01 Prochlorperazine Edisylate 10 Mg/2 Ml Vial IV PUSH 10 mg Q6H PRN Administration Nausea And Vomiting Trazodone HCl 50 mg 09/11/24 18:38 Trazodone Hcl 50 Mg Tablet PO HS PRN Insomnia Radiology Results: ITS Impressions Catheter Placement CT 09/08/24 14:14 IMPRESSION: 1[address] CT-guided upsizing to 12 Malawian of a prior 8.5 Malawian left lower quadrant percutaneous abscess drain.. 2. The catheter will be managed by Dr. Vences. 3. Patent fistulous draining tract with small amount of the water-soluble contrast injected into the percutaneous abscess drain extending into the proximal sigmoid colon and refluxing proximally into the distal descending colon. Abdomen/Pelvis CT 09/10/24 08:53 IMPRESSION: 1. Interval upsizing of a left lower quadrant percutaneous abscess drain within a residual 2.2 x 1.9 cm abscess cavity located within a larger region of phlegmonous change with smaller of a communicating extension of the abscess. No other drainable abscess is identified. 2. Small amount of likely reactive nonorganized appearing free fluid in the deep pelvis. 3. Focal wall thickening and narrowing of the lumen of the proximal sigmoid colon potentially representing a stricture related to diverticulitis which is located at the site of a previous identified draining sinus tract evident at the time of the drainage catheter exchange. Labs Labs: Laboratory Results - last 24 hr 09/15/24 05:55 WBC 6.3 RBC 2.60 L Hgb 6.8 L* Hct 22.9 L MCV 88.1 MCH 26.2 MCHC 29.7 L RDW 14.5 Plt Count 470 H MPV 9.5 Sodium 139 Potassium 3.7 Chloride 101 Carbon Dioxide 35 H Anion Gap 3 L BUN < 2 L Creatinine 0.60 L Estim Creat Clear Calc 90 Estimated GFR > 60 Glucose 90 Calcium 8.3 L
--- NOTE | 2024-09-15 11:43 | PCNFU ---
Nutrition Follow-Up Complete: Moderate protein calorie malnutrition related to reduced appetite and intake due to altered GI function as evidenced by pt report of reduced po intake for greater than 1 month and a significant weight change of -12% x 3 months. Inadequate energy intake related to NPO status as evidenced by current diet orders. Goal:Meet estimated needs Pt is slowly progressing towards goal Pt current nutrition is full liquids. Nutrition recommendation: Restart Ensure Enlive BID Last recorded weight is 50 kg. Bowel Motility: +BM 09/14 Labs Reviewed:Hgb:6.8, HCT:22.9, Cr:0.6 Meds Noted: zofran, lovenox, KCL Skin: WNL Additional Notes: Pt diet is currently full liquids, advanced from clears over the weekend. Recommend to resume ensure enlive BID for supplement. Monitor for diet order, intake, wt, labs. Follow up in 3 days
[2024-09-15] MEDS: BUMETANIDE INJ 1 MG/4 ML VIAL 2 MG IV PUSH (13:42)
[2024-09-15 14:00] VITALS: BP 104/68; PULSE 85; RESP 16; TEMP 36.7; O2SAT 99
[2024-09-15] MEDS: LORazepam INJ (*CRX) 2 MG/ML VIAL 0.5 MG IV PUSH (16:49)
[2024-09-15 19:15] VITALS: PULSE 105; RESP 14
[2024-09-15] MEDS: SODIUM CHLORIDE 0.9% IV CONT (19:15)
[2024-09-15] MEDS: MORPHINE SULFATE IV CONT (19:15)
[2024-09-15 20:33] VITALS: BP 103/67; PULSE 105; RESP 14; TEMP 36.8; O2SAT 99
[2024-09-15] MEDS: traZODone HCL 50 MG TABLET PO (21:15)
--- NOTE | 2024-09-15 23:11 | PC.NURSE ---
Day shift RN Koki Grider switched over the [employer] pump to the new order of 6mg/hr with myself in the room to witness programming of [employer] pump. Koki didn't scan/ chart the initiation of the new order in the MAR. This was noticed around 2300. Myself and piper installer Joe reviewed the MAR together and charted/ signed off on the [employer] documentation. Correct [employer] dosing programmed and documented.
[2024-09-15 23:58] VITALS: BP 94/64; PULSE 76; RESP 14; TEMP 36.4; O2SAT 97
[2024-09-16] VITALS (7 sets, daily range): BP systolic 99–121; BP diastolic 61–76; PULSE 64–100; RESP 14–20; TEMP 36.3–36.6; O2SAT 98–100
[2024-09-16] MEDS: LORazepam INJ (*CRX) 2 MG/ML VIAL 0.5 MG IV PUSH ×2 (01:34→09:37)
[2024-09-16] MEDS: MORPHINE SULFATE IV CONT (01:56)
[2024-09-16] MEDS: SODIUM CHLORIDE 0.9% IV CONT (01:56)
[2024-09-16] MEDS: PIPERACILLN/TAZ 3.375GM/NS50ML 3.375 GM/50 ML BAG IVPB ×4 (02:56→21:06)
[2024-09-16] MEDS: IBUPROFEN IV 800 MG/200 ML 800 MG/200 ML BAG 400 MG IVPB ×4 (04:30→21:42)
[2024-09-16] MEDS: KCL 40 MEQ/0.9% SOD CHL 1,000 ML 50 ML IV CONT (05:12)
[2024-09-16 06:16] LABS: Hematocrit 22.1 % (37.0-47.0); Mean Corpuscular HGB Conc 31.2 g/dl (32-36); Mean Corpuscular Volume 86.3 fl (80-100); Platelet Count Result 389 k/mm3 (150-375); Red Blood Count 2.56 M/mm3 (4.2-5.4); Red Cell Distribution Width 14.6 % (11.5-14.5); White Blood Count 6.5 K/mm3 (4.5-10.0)
[2024-09-16 06:19] LABS: Hemoglobin 6.9 g/dL (12.0-15.0)
[2024-09-16 06:28] LABS: Anion Gap 5 mmol/L (4-12); Calcium 8.4 mg/dL (8.4-10.2); Carbon Dioxide 31 mmol/L (22-30); Chloride 103 mmol/L (98-107); Estimated CRCL calculation 90 ml/min; Estimated Glomerular Filt Rate > 60; Glucose 105 mg/dL (65-110); Potassium 3.6 mmol/L (3.4-5.0); Sodium 139 mmol/L (137-145)
[2024-09-16 07:10] LABS: Blood Urea Nitrogen < 2 mg/dL (7-17)
[2024-09-16] MEDS: FAMOTIDINE 20 MG TABLET PO ×2 (08:36→20:53)
[2024-09-16] MEDS: POTASSIUM CHLORIDE 20 MEQ ER TABLET PO ×3 (08:36→17:04)
[2024-09-16] MEDS: LIDOCAINE 5% PATCH 1 PATCH TRANSDERM (08:38)
--- NOTE | 2024-09-16 11:11 | PM.PNGS ---
Progress Note: A&P Assessment and Plan (1) Colon perforation: Code(s): K63.1 - Perforation of intestine (nontraumatic) Status: Acute Assessment and Plan: Healing well following sigmoidectomy with anastomosis. Oral intake is improving and she is tolerating a soft diet. Will advance to a regular diet today. She is requiring last morphine on the TRAINING PROFESSIONAL. Will transition to p.r.n. analgesics and stop the TRAINING PROFESSIONAL. Continue scheduled IV ibuprofen again today. Recheck labs tomorrow. Pathology showed adenocarcinoma with perforation, which Dr. Lang discussed with the patient in detail. She will eventually need an Oncology referral as an outpatient when she recovers from the surgery. 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 (3) Abdominal wall abscess: Code(s): L02.211 - Cutaneous abscess of abdominal wall Status: Acute Assessment and Plan: Left lower quadrant abscess at exit site of pigtail catheter. This appears to be healing well with no purulent drainage. Continue daily packing dressing changes with 1 iodoform Nu gauze. (4) Anemia: Qualifiers: Anemia type: other cause Other causes of anemia: chronic disease, other Qualified Code(s): D63.8 - Anemia in other chronic diseases classified elsewhere Code(s): D64.9 - Anemia, unspecified Status: Chronic Assessment and Plan: Hemoglobin remains low but stable at 6.9 today. She is hemodynamically stable and asymptomatic. No signs of intra-abdominal bleeding. We will give another dose of IV Bumex today for and stop her IV fluids now that she is tolerating oral intake better. Plan I have discussed the patient's case and plan of care with Dr. Lang. Subjective Subjective Date/Time Seen: 09/16/24 11:11 Post Op day: 4 (Sigmoid colon resection with hand-sewn end-to-end anastomosis, drainage abdominal wall abscess) Interval history: Patient tearful this morning, she is feeling anxious. She reports the Ativan is helping. Her pain was well controlled overnight and in review of her history on the TRAINING PROFESSIONAL it appears she got 8 mg morphine total for the last 24 hours. She is no longer having the right lower quadrant pain today. She reports her pain is at the midline incision and left lower quadrant near the abscess. She was able to get up and ambulate in the halls yesterday multiple times and tolerated this well. Still having nausea, but reports this has improved. She is able to tolerate her meals and oral intake is improving. She reports drinking plenty of fluids. Exam Const: General: comfortable and no acute distress Orientation/consciousness: patient oriented x3 GI: Inspection: non-distended, incision (Serous drainage, healing well, no erythema) and other (Left lower quadrant abscess clean and starting to heal, repacked) GI Palp: Yes Soft to palpation, Yes Tenderness to palpation present (GI) (no RLQ tenderness today, tender at midline incision and LLQ), No Guarding due to palpation present (GI) and No Rebound tenderness present Auscultation: normal bowel sounds Neuro: General: moves all extremities and no focal motor deficits Extrem: General: no calf tenderness and no edema Psych: Mental Status: mental status grossly normal Objective Data Vital Signs Vital Signs: Vital Signs - 24 hr 09/15/24 14:00 09/15/24 20:33 09/15/24 19:15 Temperature 98.1 F 98.2 F Pulse Rate 85 105 H 105 H Respiratory Rate 16 14 14 Blood Pressure 104/68 103/67 Pulse Oximetry 99 99 Oxygen Delivery 09/15/24 23:58 09/16/24 01:56 09/16/24 01:56 Temperature 97.6 F Pulse Rate 76 70 70 Respiratory Rate 14 16 16 Blood Pressure 94/64 L Pulse Oximetry 97 Oxygen Delivery 09/16/24 03:58 09/16/24 08:00 09/16/24 08:30 Temperature 97.4 F L 97.8 F Pulse Rate 64 91 Respiratory Rate 14 18 Blood Pressure 106/66 121/61 Pulse Oximetry 100 99 Oxygen Delivery Room Air Intake/Output Intake/Output: Intake & Output 09/13/24 09/14/24 09/15/24 09/16/24 23:59 23:59 23:59 23:59 Intake Total 2440 2450 3487.5 630 Output Total 800 Balance 2440 2450 2687.5 630 Meds/Results Medications: Active Medications Generic Name Dose Route Start Last Admin Trade Name Freq PRN Reason Stop Dose Admin Acetaminophen 500 mg 09/12/24 14:47 Acetaminophen 500 Mg Tablet PO Q6H PRN Pain Rated 1-3 Enoxaparin Sodium 40 mg 09/10/24 09:00 09/16/24 08:39 Enoxaparin 40 Mg/0.4 Ml Syringe SUB-Q Not Given DAILY FIDELIA Famotidine 20 mg 09/12/24 21:00 09/16/24 08:36 Famotidine 20 Mg Tablet PO 20 mg Q12HR FIDELIA Administration Piperacillin/Tazobactam/Dextrose 3.375 gm in 50 mls @ 100 mls/hr 09/08/24 15:00 09/16/24 09:07 Zosyn 3.375 Gm/Ns 50 Ml IVPB Infused Q6H FIDELIA Infusion Ibuprofen 800 mg in 200 mls @ 400 mls/hr 09/12/24 15:00 09/16/24 09:32 Caldolor 800 Mg/200 Ml IVPB 400 mls/hr Q6H FIDELIA Administration Potassium Chloride/Sodium Chloride 1,000 mls @ 50 mls/hr 09/13/24 09:45 09/16/24 05:12 Kcl 40 Meq/Ns IV CONT 50 mls/hr .Q20H FIDELIA Administration Morphine Sulfate 150 mg/ 30 mls @ 0 mls/hr 09/15/24 11:32 09/16/24 01:56 Sodium Chloride IV CONT 6 mg/hr PRN PRN 1.2 mls/hr Pain management Administration Protocol 0 MG/HR Lidocaine 1 patch 09/12/24 21:50 09/16/24 08:38 Lidocaine 5% Patch TRANSDERM 1 patch DAILY FIDELIA Administration Lorazepam 0.5 mg 09/08/24 19:44 09/16/24 09:37 Lorazepam Inj (*Crx) 2 Mg/Ml Vial IV PUSH 0.5 mg Q6H PRN Administration Anxiety Naloxone HCl 0.4 mg 09/12/24 18:15 Naloxone Hcl 0.4 Mg/Ml Vial IV PUSH PRN PRN Opioid Reversal Potassium Chloride 20 meq 09/14/24 17:00 09/16/24 08:36 Potassium Chloride 20 Meq Er Tablet PO 20 meq TID FIDELIA Administration Prochlorperazine Edisylate 10 mg 09/13/24 21:51 09/15/24 00:01 Prochlorperazine Edisylate 10 Mg/2 Ml Vial IV PUSH 10 mg Q6H PRN Administration Nausea And Vomiting Trazodone HCl 50 mg 09/11/24 18:38 09/15/24 21:15 Trazodone Hcl 50 Mg Tablet PO 50 mg HS PRN Administration Insomnia Radiology Results: ITS Impressions Catheter Placement CT 09/08/24 14:14 IMPRESSION: 1[address] CT-guided upsizing to 12 Chinese of a prior 8.5 Chinese left lower quadrant percutaneous abscess drain.. 2. The catheter will be managed by Dr. Vences. 3. Patent fistulous draining tract with small amount of the water-soluble contrast injected into the percutaneous abscess drain extending into the proximal sigmoid colon and refluxing proximally into the distal descending colon. Abdomen/Pelvis CT 09/10/24 08:53 IMPRESSION: 1. Interval upsizing of a left lower quadrant percutaneous abscess drain within a residual 2.2 x 1.9 cm abscess cavity located within a larger region of phlegmonous change with smaller of a communicating extension of the abscess. No other drainable abscess is identified. 2. Small amount of likely reactive nonorganized appearing free fluid in the deep pelvis. 3. Focal wall thickening and narrowing of the lumen of the proximal sigmoid colon potentially representing a stricture related to diverticulitis which is located at the site of a previous identified draining sinus tract evident at the time of the drainage catheter exchange. Labs Labs: Laboratory Results - last 24 hr 09/16/24 06:11 WBC 6.5 RBC 2.56 L Hgb 6.9 L* Hct 22.1 L MCV 86.3 MCH 27.0 MCHC 31.2 L RDW 14.6 H Plt Count 389 H MPV 9.0 Sodium 139 Potassium 3.6 Chloride 103 Carbon Dioxide 31 H Anion Gap 5 BUN < 2 L Creatinine 0.60 L Estim Creat Clear Calc 90 Estimated GFR > 60 Glucose 105 Calcium 8.4
--- NOTE | 2024-09-16 11:59 | PM.PNGS ---
Subjective Subjective Date/Time Seen: 09/16/24 11:59 Post Op day: #8 Patient reports: feels better, pain is less, tolerating a regular diet, voiding w/o difficulty, bowel movement and afebrile Interval history: Less pain, feels better. Exam Const: General: cooperative, comfortable, alert and awake Nutritional Appearance: thin GI: Inspection: non-distended, incision (Dry and healing) and other (Abscess wound looks great, pink, granulating) GI Palp: Yes Soft to palpation, Yes Tenderness to palpation present (GI), No Hernia present and No Palpable mass present Auscultation: normoactive bowel sounds Objective Data Vital Signs Vital Signs: Vital Signs - 24 hr 09/15/24 14:00 09/15/24 20:33 09/15/24 19:15 Temperature 36.7 C 36.8 C Pulse Rate 85 105 H 105 H Respiratory Rate 16 14 14 Blood Pressure 104/68 103/67 Pulse Oximetry 99 99 Oxygen Delivery 09/15/24 23:58 09/16/24 01:56 09/16/24 01:56 Temperature 36.4 C Pulse Rate 76 70 70 Respiratory Rate 14 16 16 Blood Pressure 94/64 L Pulse Oximetry 97 Oxygen Delivery 09/16/24 03:58 09/16/24 08:00 09/16/24 08:30 Temperature 36.3 C L 36.6 C Pulse Rate 64 91 Respiratory Rate 14 18 Blood Pressure 106/66 121/61 Pulse Oximetry 100 99 Oxygen Delivery Room Air Intake/Output Intake/Output: Intake & Output 09/13/24 09/14/24 09/15/24 09/16/24 23:59 23:59 23:59 23:59 Intake Total 2440 2450 3487.5 630 Output Total 800 Balance 2440 2450 2687.5 630 Meds/Results Medications: Active Medications Generic Name Dose Route Start Last Admin Trade Name Freq PRN Reason Stop Dose Admin Acetaminophen 650 mg 09/16/24 11:12 Acetaminophen 325 Mg Tablet PO Q4H PRN Mild Pain (1-3) or Fever Enoxaparin Sodium 40 mg 09/10/24 09:00 09/16/24 08:39 Enoxaparin 40 Mg/0.4 Ml Syringe SUB-Q Not Given DAILY [facility] Famotidine 20 mg 09/12/24 21:00 09/16/24 08:36 Famotidine 20 Mg Tablet PO 20 mg Q12HR FIDELIA Administration Piperacillin/Tazobactam/Dextrose 3.375 gm in 50 mls @ 100 mls/hr 09/08/24 15:00 09/16/24 09:07 Zosyn 3.375 Gm/Ns 50 Ml IVPB Infused Q6H FIDELIA Infusion Ibuprofen 800 mg in 200 mls @ 400 mls/hr 09/12/24 15:00 09/16/24 09:32 Caldolor 800 Mg/200 Ml IVPB 400 mls/hr Q6H FIDELIA Administration Lidocaine 1 patch 09/12/24 21:50 09/16/24 08:38 Lidocaine 5% Patch TRANSDERM 1 patch DAILY [facility] Administration Lorazepam 0.5 mg 09/08/24 19:44 09/16/24 09:37 Lorazepam Inj (*Crx) 2 Mg/Ml Vial IV PUSH 0.5 mg Q6H PRN Administration Anxiety Morphine Sulfate 2 mg 09/16/24 11:12 Morphine Sulfate (*Crx) 2 Mg/Ml Inj IV PUSH Q2H PRN Pain Rated 7-10 Morphine Sulfate 1 mg 09/16/24 11:12 Morphine Sulfate (*Crx) 2 Mg/Ml Inj IV PUSH Q2H PRN Pain Rated 4-6 Naloxone HCl 0.4 mg 09/12/24 18:15 Naloxone Hcl 0.4 Mg/Ml Vial IV PUSH PRN PRN Opioid Reversal Oxycodone/Acetaminophen 1 tablet 09/16/24 11:12 Oxycodone/Acetaminophen (*Crx) 5-325 Mg Tablet PO Q4H PRN Pain Rated 4-6 Oxycodone/Acetaminophen 1 tab 09/16/24 11:12 Oxycodone/Acetaminophen (*Crx) 10-325 Mg Tablet PO Q4H PRN Pain Rated 7-10 Potassium Chloride 20 meq 09/14/24 17:00 09/16/24 08:36 Potassium Chloride 20 Meq Er Tablet PO 20 meq TID FIDELIA Administration Prochlorperazine Edisylate 10 mg 09/13/24 21:51 09/15/24 00:01 Prochlorperazine Edisylate 10 Mg/2 Ml Vial IV PUSH 10 mg Q6H PRN Administration Nausea And Vomiting Trazodone HCl 50 mg 09/11/24 18:38 09/15/24 21:15 Trazodone Hcl 50 Mg Tablet PO 50 mg HS PRN Administration Insomnia Radiology Results: ITS Impressions Catheter Placement CT 09/08/24 14:14 IM[address]ION: 1[address]-guided upsizing to 12 Latvian of a prior 8.5 Latvian left lower quadrant percutaneous abscess drain.. 2. The catheter will be managed by Dr. Vences. 3. Patent fistulous draining tract with small amount of the water-soluble contrast injected into the percutaneous abscess drain extending into the proximal sigmoid colon and refluxing proximally into the distal descending colon. Abdomen/Pelvis CT 09/10/24 08:53 IMPRESSION: 1. Interval upsizing of a left lower quadrant percutaneous abscess drain within a residual 2.2 x 1.9 cm abscess cavity located within a larger region of phlegmonous change with smaller of a communicating extension of the abscess. No other drainable abscess is identified. 2. Small amount of likely reactive nonorganized appearing free fluid in the deep pelvis. 3. Focal wall thickening and narrowing of the lumen of the proximal sigmoid colon potentially representing a stricture related to diverticulitis which is located at the site of a previous identified draining sinus tract evident at the time of the drainage catheter exchange. Labs Labs: Laboratory Results - last 24 hr 09/16/24 06:11 WBC 6.5 RBC 2.56 L Hgb 6.9 L* Hct 22.1 L MCV 86.3 MCH 27.0 MCHC 31.2 L RDW 14.6 H Plt Count 389 H MPV 9.0 Sodium 139 Potassium 3.6 Chloride 103 Carbon Dioxide 31 H Anion Gap 5 BUN < 2 L Creatinine 0.60 L Estim Creat Clear Calc 90 Estimated GFR > 60 Glucose 105 Calcium 8.4
[2024-09-16] MEDS: oxyCODONE/ACETAMINOPHEN (*CRX) 10-325 MG TABLET 1 TAB PO ×3 (12:23→21:06)
[2024-09-16] MEDS: BUMETANIDE INJ 1 MG/4 ML VIAL 2 MG IV PUSH (12:23)
[2024-09-16] MEDS: MORPHINE SULFATE (*CRX) 2 MG/ML INJ 1 MG IV PUSH ×2 (15:45→19:34)
[2024-09-16] MEDS: traZODone HCL 50 MG TABLET PO (21:06)
[2024-09-17] MEDS: PIPERACILLN/TAZ 3.375GM/NS50ML 3.375 GM/50 ML BAG IVPB ×3 (02:17→15:33)
[2024-09-17] MEDS: oxyCODONE/ACETAMINOPHEN (*CRX) 10-325 MG TABLET 1 TAB PO ×4 (02:25→23:32)
[2024-09-17] MEDS: IBUPROFEN IV 800 MG/200 ML 800 MG/200 ML BAG 400 MG IVPB ×2 (03:37→08:59)
--- NOTE | 2024-09-17 04:14 | PC.NURSE ---
read, reviewed and agree with Helen Spencer rn charting and documentation
[2024-09-17 05:21] VITALS: BP 93/56; PULSE 52; RESP 14; TEMP 36.4; O2SAT 98
[2024-09-17] MEDS: PROCHLORPERAZINE EDISYLATE 10 MG/2 ML VIAL IV PUSH (06:18)
[2024-09-17 07:08] LABS: Hematocrit 23.9 % (37.0-47.0); Hemoglobin 7.1 g/dL (12.0-15.0); Mean Corpuscular HGB Conc 29.7 g/dl (32-36); Mean Corpuscular Hemoglobin 26.1 pg (26-34); Mean Corpuscular Volume 87.9 fl (80-100); Mean Platelet Volume 9.6 fl (7.4-10.4); Platelet Count Result 494 k/mm3 (150-375); Red Blood Count 2.72 M/mm3 (4.2-5.4)
[2024-09-17 07:16] LABS: Anion Gap 7 mmol/L (4-12); Blood Urea Nitrogen 7 mg/dL (7-17); Calcium 8.7 mg/dL (8.4-10.2); Carbon Dioxide 28 mmol/L (22-30); Chloride 103 mmol/L (98-107); Estimated CRCL calculation 90 ml/min; Estimated Glomerular Filt Rate > 60; Glucose 101 mg/dL (65-110); Potassium 3.8 mmol/L (3.4-5.0); Sodium 138 mmol/L (137-145)
[2024-09-17] MEDS: POTASSIUM CHLORIDE 20 MEQ ER TABLET PO (08:58)
[2024-09-17] MEDS: FAMOTIDINE 20 MG TABLET PO ×2 (08:59→21:14)
[2024-09-17] MEDS: FERROUS SULFATE 325 MG TABLET DR PO ×2 (08:59→16:33)
[2024-09-17] MEDS: POTASSIUM CHLORIDE 20 MEQ ER TABLET 40 MEQ PO ×2 (09:09→16:33)
[2024-09-17] MEDS: BUMETANIDE INJ 1 MG/4 ML VIAL 2 MG IV PUSH (09:09)
[2024-09-17 09:19] VITALS: BP 110/74
[2024-09-17] MEDS: ONDANSETRON HCL ODT 4 MG TABLET PO (10:58)
[2024-09-17 14:45] VITALS: BP 100/66; PULSE 79; RESP 18; TEMP 36.4; O2SAT 99
--- NOTE | 2024-09-17 14:48 | PM.PNGS ---
Progress Note: A&P Assessment and Plan (1) Colon perforation: Code(s): K63.1 - Perforation of intestine (nontraumatic) Status: Acute Assessment and Plan: Healing well following sigmoidectomy with anastomosis. Pain is well controlled on oral analgesics. Will stop the IV Ibuprofen. Continue dressing changes and packing to the LLQ wound. Will stop IV antibiotics today. Hopefully she will be stable for discharge in the next few days as she continues to slowly improve. 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 (3) Abdominal wall abscess: Code(s): L02.211 - Cutaneous abscess of abdominal wall Status: Acute Assessment and Plan: Left lower quadrant abscess at exit site of pigtail catheter. This appears to be healing well with no purulent drainage. Continue daily packing dressing changes with 1 iodoform Nu gauze. (4) Anemia: Qualifiers: Anemia type: other cause Other causes of anemia: chronic disease, other Qualified Code(s): D63.8 - Anemia in other chronic diseases classified elsewhere Code(s): D64.9 - Anemia, unspecified Status: Chronic Assessment and Plan: Hemoglobin up slightly to 7.0 after diuresis. Plan I have discussed the patient's case and plan of care with Dr. Lang. Subjective Subjective Date/Time Seen: 09/17/24 11:48 Post Op day: 5 (Sigmoid colon resection with hand-sewn end-to-end anastomosis, drainage abdominal wall abscess) Patient reports: feels better, voiding w/o difficulty and afebrile Interval history: Patient reports her pain is well controlled with oral analgesics. She requested to have her IV Ibuprofen stopped as it was burning when going into her IV. She is still having some mild intermittent nausea, but no vomiting. She is able to tolerate her diet. She is up and ambulating in the room independently and reports tolerating this well. No other complaints at this time. Exam Const: General: comfortable and no acute distress Orientation/consciousness: patient oriented x3 GI: Inspection: non-distended GI Palp: Yes Soft to palpation, Yes Tenderness to palpation present (GI) (mostly tender at the midline incision and LLQ ), No Guarding due to palpation present (GI) and No Rebound tenderness present Percussion: Yes normal to percussion Auscultation: normal bowel sounds Other: midline incision with skin edges approximated, there is cloudy serosanguineous drainage draining at the incision near the umbilicus, there is mild localized erythema superior to this area at the top of the incision, when pushing on the top of the incision I express more drainage from the opening near the umbilicus. Objective Data Vital Signs Vital Signs: Vital Signs - 24 hr 09/16/24 16:00 09/16/24 20:00 09/17/24 05:21 Temperature 97.4 F L 97.7 F 97.5 F L Pulse Rate 79 75 52 L Respiratory Rate 20 16 14 Blood Pressure 102/66 99/70 L 93/56 L Pulse Oximetry 100 99 98 Oxygen Delivery 09/17/24 09:19 09/17/24 08:55 09/17/24 14:00 Temperature 97.0 F L Pulse Rate 144 H Respiratory Rate 22 H Blood Pressure 110/74 100/66 Pulse Oximetry 9 L Oxygen Delivery Room Air Intake/Output Intake/Output: Intake & Output 09/14/24 09/15/24 09/16/24 09/17/24 23:59 23:59 23:59 23:59 Intake Total 2450 3487.5 2819 916 Output Total 800 Balance 2450 2687.5 2819 916 Meds/Results Medications: Active Medications Generic Name Dose Route Start Last Admin Trade Name Freq PRN Reason Stop Dose Admin Acetaminophen 650 mg 09/16/24 11:12 Acetaminophen 325 Mg Tablet PO Q4H PRN Mild Pain (1-3) or Fever Enoxaparin Sodium 40 mg 09/10/24 09:00 09/17/24 08:58 Enoxaparin 40 Mg/0.4 Ml Syringe SUB-Q Not Given DAILY [facility] Famotidine 20 mg 09/12/24 21:00 09/17/24 08:59 Famotidine 20 Mg Tablet PO 20 mg Q12HR FIDELIA Administration Ferrous Sulfate 325 mg 09/17/24 09:00 09/17/24 08:59 Ferrous Sulfate [address] PO 325 mg BID FIDELIA Administration Piperacillin/Tazobactam/Dextrose 3.375 gm in 50 mls @ 100 mls/hr 09/08/24 15:00 09/17/24 09:29 Zosyn 3.375 Gm/Ns 50 Ml IVPB Infused Q6H FIDELIA Infusion Lidocaine 1 patch 10/18/24 21:50 09/17/24 09:01 Lidocaine 5% Patch TRANSDERM Not Given DAILY [facility] Lorazepam 0.5 mg 09/08/24 19:44 09/16/24 09:37 Lorazepam Inj (*Crx) 2 Mg/Ml Vial IV PUSH 0.5 mg Q6H PRN Administration Anxiety Morphine Sulfate 2 mg 09/16/24 11:12 Morphine Sulfate (*Crx) 2 Mg/Ml Inj IV PUSH Q2H PRN Pain Rated 7-10 Morphine Sulfate 1 mg 09/16/24 11:12 09/16/24 19:34 Morphine Sulfate (*Crx) 2 Mg/Ml Inj IV PUSH 1 mg Q2H PRN Administration Pain Rated 4-6 Naloxone HCl 0.4 mg 09/12/24 18:15 Naloxone Hcl 0.4 Mg/Ml Vial IV PUSH PRN PRN Opioid Reversal Ondansetron HCl 4 mg 09/17/24 10:43 09/17/24 10:58 Ondansetron Hcl Odt 4 Mg Tablet PO 4 mg Q6H PRN Administration Nausea And Vomiting Oxycodone/Acetaminophen 1 tablet 09/16/24 11:12 Oxycodone/Acetaminophen (*Crx) 5-325 Mg Tablet PO Q4H PRN Pain Rated 4-6 Oxycodone/Acetaminophen 1 tab 09/16/24 11:12 09/17/24 09:57 Oxycodone/Acetaminophen (*Crx) 10-325 Mg Tablet PO 1 tab Q4H PRN Administration Pain Rated 7-10 Potassium Chloride 40 meq 09/17/24 17:00 Potassium Chloride 20 Meq Er Tablet PO BIDWM [facility] Prochlorperazine Edisylate 10 mg 09/13/24 21:51 09/17/24 06:18 Prochlorperazine Edisylate 10 Mg/2 Ml Vial IV PUSH 10 mg Q6H PRN Administration Nausea And Vomiting Trazodone HCl 50 mg 09/11/24 18:38 09/16/24 21:06 Trazodone Hcl 50 Mg Tablet PO 50 mg HS PRN Administration Insomnia Radiology Results: ITS Impressions Catheter Placement CT 09/08/24 14:14 IMPRESSION: 1[address] CT-guided upsizing to 12 Jamaican of a prior 8.5 Jamaican left lower quadrant percutaneous abscess drain.. 2. The catheter will be managed by Dr. Vences. 3. Patent fistulous draining tract with small amount of the water-soluble contrast injected into the percutaneous abscess drain extending into the proximal sigmoid colon and refluxing proximally into the distal descending colon. Abdomen/Pelvis CT 09/10/24 08:53 IMPRESSION: 1. Interval upsizing of a left lower quadrant percutaneous abscess drain within a residual 2.2 x 1.9 cm abscess cavity located within a larger region of phlegmonous change with smaller of a communicating extension of the abscess. No other drainable abscess is identified. 2. Small amount of likely reactive nonorganized appearing free fluid in the deep pelvis. 3. Focal wall thickening and narrowing of the lumen of the proximal sigmoid colon potentially representing a stricture related to diverticulitis which is located at the site of a previous identified draining sinus tract evident at the time of the drainage catheter exchange. Labs Labs: Laboratory Results - last 24 hr 09/17/24 06:09 WBC 8.0 RBC 2.72 L Hgb 7.1 L Hct 23.9 L MCV 87.9 MCH 26.1 MCHC 29.7 L RDW 15.0 H Plt Count 494 H MPV 9.6 Sodium 138 Potassium 3.8 Chloride 103 Carbon Dioxide 28 Anion Gap 7 BUN 7 D Creatinine 0.60 L Estim Creat Clear Calc 90 Estimated GFR > 60 Glucose 101 Calcium 8.7
[2024-09-17 21:00] VITALS: BP 108/64; PULSE 99; RESP 14; TEMP 37.1; O2SAT 98
[2024-09-17] MEDS: ALPRAZolam (*CRX) 0.25 MG TABLET PO (21:17)
[2024-09-18 05:14] VITALS: BP 108/69; PULSE 95; RESP 14; TEMP 36.7; O2SAT 97
[2024-09-18] MEDS: oxyCODONE/ACETAMINOPHEN (*CRX) 10-325 MG TABLET 1 TAB PO ×4 (05:26→19:53)
[2024-09-18 06:42] LABS: Hematocrit 25.8 % (37.0-47.0); Hemoglobin 7.5 g/dL (12.0-15.0); Mean Corpuscular HGB Conc 29.1 g/dl (32-36); Mean Corpuscular Hemoglobin 25.7 pg (26-34); Mean Corpuscular Volume 88.4 fl (80-100); Mean Platelet Volume 9.5 fl (7.4-10.4); Platelet Count Result 614 k/mm3 (150-375); Red Blood Count 2.92 M/mm3 (4.2-5.4); Red Cell Distribution Width 15.2 % (11.5-14.5); White Blood Count 11.8 K/mm3 (4.5-10.0)
[2024-09-18 06:55] LABS: Anion Gap 8 mmol/L (4-12); Blood Urea Nitrogen 7 mg/dL (7-17); Carbon Dioxide 27 mmol/L (22-30); Chloride 100 mmol/L (98-107); Estimated CRCL calculation 90 ml/min; Estimated Glomerular Filt Rate > 60; Glucose 103 mg/dL (65-110); Potassium 3.9 mmol/L (3.4-5.0); Sodium 135 mmol/L (137-145)
--- NOTE | 2024-09-18 08:33 | PCNFU ---
Nutrition Follow-Up Complete: Moderate protein calorie malnutrition related to reduced appetite and intake due to altered GI function as evidenced by pt report of reduced po intake for greater than 1 month and a significant weight change of -12% x 3 months. Inadequate energy intake related to NPO status as evidenced by current diet orders. Meet estimated needs - Progressing toward goal. Average intake over 48 hours 55%. Continue with same goal Goal: Pt current nutrition is Regular diet with Ensure Enlive BID for additional 350 kcal and 20 g protein each. Nutrition recommendation: No new nutrition recommendations. Continue with current nutrition care plan and monitoring. Agree with nutrition and diet orders. Last recorded weight is 50 kg. Bowel Motility: +1 BM 09/16/24 Labs Reviewed: Hgb 7.5, Hct 25.8, Na 135, Cre 0.6 Meds Noted: heber Vigil Skin: WNL Additional Notes: Diet progressed to regular and intakes improving slowly. Continue current orders. Monitor for diet order, intake, wt, labs. Follow up in 5 days
[2024-09-18] MEDS: FERROUS SULFATE 325 MG TABLET DR PO ×2 (09:00→16:55)
[2024-09-18] MEDS: POTASSIUM CHLORIDE 20 MEQ ER TABLET 40 MEQ PO ×2 (09:00→16:55)
[2024-09-18] MEDS: FAMOTIDINE 20 MG TABLET PO ×2 (09:00→19:52)
[2024-09-18] MEDS: MORPHINE SULFATE (*CRX) 2 MG/ML INJ IV PUSH (12:02)
[2024-09-18] MEDS: PROCHLORPERAZINE EDISYLATE 10 MG/2 ML VIAL IV PUSH ×2 (12:02→19:58)
[2024-09-18] MEDS: ALPRAZolam (*CRX) 0.25 MG TABLET PO ×2 (12:03→19:51)
--- NOTE | 2024-09-18 12:15 | PM.PNGS ---
Progress Note: A&P Assessment and Plan (1) Colon perforation: Code(s): K63.1 - Perforation of intestine (nontraumatic) Status: Acute Assessment and Plan: Patient found to have perforated colon cancer and is healing well following sigmoidectomy with anastomosis. She is tolerating a regular diet and bowels are moving. WBC count went up to 11,800 today. There is drainage coming from her incision near the umbilicus. Dr. Lang removed some sutures and opened up the top 1/3 of the incision, which is now packed with 1 iodoform Nu gauze. We expect this is the cause for her increased white count, but will repeat labs again tomorrow. IV antibiotics were stopped yesterday. She is afebrile and overall clinically improving. 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 (3) Abdominal wall abscess: Code(s): L02.211 - Cutaneous abscess of abdominal wall Status: Acute Assessment and Plan: Left lower quadrant wound continues to heal well. Will stop packing dressing changes and start just cover gauze dressings. (4) Anemia: Qualifiers: Anemia type: other cause Other causes of anemia: chronic disease, other Qualified Code(s): D63.8 - Anemia in other chronic diseases classified elsewhere Code(s): D64.9 - Anemia, unspecified Status: Chronic Assessment and Plan: Chronic anemia likely related to her colon cancer. Hemoglobin has been stable for days and is up to 7.5 today. She was started on iron supplementation. Will continue to monitor. Plan I have discussed the patient's case and plan of care with Dr. Lang. Subjective Subjective Date/Time Seen: 09/18/24 12:15 Post Op day: 6 (Sigmoid colon resection with hand-sewn end-to-end anastomosis, drainage abdominal wall abscess) Patient reports: flatus and bowel movement (BM yesterday) Interval history: Patient is tearful and feeling anxious about her dressing change. Pain is still well controlled. She is tolerating a diet without any issues. Exam GI: Inspection: non-distended GI Palp: Yes Soft to palpation, Yes Tenderness to palpation present (GI) (tenderness near the top of her midline incision), No Guarding due to palpation present (GI) and No Rebound tenderness present Auscultation: normal bowel sounds Other: LLQ wound healing well, packing removed, no purulent drainage, no erythema. Will stop packing dressing changes. Midline incision with a small opening at the umbilicus that is draining cloudy serosanguineous drainage. This opening tracks up to the top of the incision. Dr. Lang removed the subcutaneous sutures on the top 1/3 of the incision which allowed the incision to open and drain. Fascia is intact. I then irrigated the wound with hydrogen peroxide diluted in sterile water and packed this with 1 iodoform Nu gauze. I then covered the midline incision and LLQ wound with gauze and tape. Objective Data Vital Signs Vital Signs: Vital Signs - 24 hr 09/17/24 14:45 09/17/24 21:00 09/17/24 20:00 Temperature 97.5 F L 98.8 F Pulse Rate 79 99 Respiratory Rate 18 14 Blood Pressure 100/66 108/64 Pulse Oximetry 99 98 Oxygen Delivery Room Air 09/18/24 05:14 09/18/24 09:00 Temperature 98.0 F Pulse Rate 95 Respiratory Rate 14 Blood Pressure 108/69 Pulse Oximetry 97 Oxygen Delivery Room Air Intake/Output Intake/Output: Intake & Output 09/15/24 09/16/24 09/17/24 09/18/24 23:59 23:59 23:59 23:59 Intake Total 3487.5 2819 1606 540 Output Total 800 Balance 2687.5 2819 1606 540 Meds/Results Medications: Active Medications Generic Name Dose Route Start Last Admin Trade Name Freq PRN Reason Stop Dose Admin Acetaminophen 650 mg 09/16/24 11:12 Acetaminophen 325 Mg Tablet PO Q4H PRN Mild Pain (1-3) or Fever Alprazolam 0.25 mg 09/17/24 17:03 09/18/24 12:03 Alprazolam (*Crx) 0.25 Mg Tablet PO 0.25 mg TID PRN Administration Anxiety Enoxaparin Sodium 40 mg 09/10/24 09:00 09/18/24 08:58 Enoxaparin 40 Mg/0.4 Ml Syringe SUB-Q Not Given DAILY [facility] Famotidine 20 mg 09/12/24 21:00 09/18/24 09:00 Famotidine 20 Mg Tablet PO 20 mg Q12HR FIDELIA Administration Ferrous Sulfate 325 mg 09/17/24 09:00 09/18/24 09:00 Ferrous Sulfate [address] PO 325 mg BID FIDELIA Administration Lidocaine 1 patch 09/12/24 21:50 09/18/24 09:00 Lidocaine 5% Patch TRANSDERM Not Given DAILY [facility] Morphine Sulfate 2 mg 09/16/24 11:12 09/18/24 12:02 Morphine Sulfate (*Crx) 2 Mg/Ml Inj IV PUSH 2 mg Q2H PRN Administration Pain Rated 7-10 Morphine Sulfate 1 mg 09/16/24 11:12 09/16/24 19:34 Morphine Sulfate (*Crx) 2 Mg/Ml Inj IV PUSH 1 mg Q2H PRN Administration Pain Rated 4-6 Naloxone HCl 0.4 mg 09/12/24 18:15 Naloxone Hcl 0.4 Mg/Ml Vial IV PUSH PRN PRN Opioid Reversal Ondansetron HCl 4 mg 09/17/24 10:43 09/17/24 10:58 Ondansetron Hcl Odt 4 Mg Tablet PO 4 mg Q6H PRN Administration Nausea And Vomiting Oxycodone/Acetaminophen 1 tablet 09/16/24 11:12 Oxycodone/Acetaminophen (*Crx) 5-325 Mg Tablet PO Q4H PRN Pain Rated 4-6 Oxycodone/Acetaminophen 1 tab 09/16/24 11:12 09/18/24 09:51 Oxycodone/Acetaminophen (*Crx) 10-325 Mg Tablet PO 1 tab Q4H PRN Administration Pain Rated 7-10 Potassium Chloride 40 meq 09/17/24 17:00 09/18/24 09:00 Potassium Chloride 20 Meq Er Tablet PO 40 meq BIDWM FIDELIA Administration Prochlorperazine Edisylate 10 mg 09/13/24 21:51 09/18/24 12:02 Prochlorperazine Edisylate 10 Mg/2 Ml Vial IV PUSH 10 mg Q6H PRN Administration Nausea And Vomiting Trazodone HCl 50 mg 09/11/24 18:38 09/16/24 21:06 Trazodone Hcl 50 Mg Tablet PO 50 mg HS PRN Administration Insomnia Radiology Results: ITS Impressions Catheter Placement CT 09/08/24 14:14 IMPRESSION: 1[address] CT-guided upsizing to 12 Polish of a prior 8.5 Polish left lower quadrant percutaneous abscess drain.. 2. The catheter will be managed by Dr. Vences. 3. Patent fistulous draining tract with small amount of the water-soluble contrast injected into the percutaneous abscess drain extending into the proximal sigmoid colon and refluxing proximally into the distal descending colon. Abdomen/Pelvis CT 09/10/24 08:53 IMPRESSION: 1. Interval upsizing of a left lower quadrant percutaneous abscess drain within a residual 2.2 x 1.9 cm abscess cavity located within a larger region of phlegmonous change with smaller of a communicating extension of the abscess. No other drainable abscess is identified. 2. Small amount of likely reactive nonorganized appearing free fluid in the deep pelvis. 3. Focal wall thickening and narrowing of the lumen of the proximal sigmoid colon potentially representing a stricture related to diverticulitis which is located at the site of a previous identified draining sinus tract evident at the time of the drainage catheter exchange. Labs Labs: Laboratory Results - last 24 hr 09/18/24 06:15 WBC 11.8 H RBC 2.92 L Hgb 7.5 L Hct 25.8 L MCV 88.4 MCH 25.7 L MCHC 29.1 L RDW 15.2 H Plt Count 614 H MPV 9.5 Sodium 135 L Potassium 3.9 Chloride 100 Carbon Dioxide 27 Anion Gap 8 BUN 7 Creatinine 0.60 L Estim Creat Clear Calc 90 Estimated GFR > 60 Glucose 103 Calcium 9.0
[2024-09-18 14:00] VITALS: BP 104/38; PULSE 68; RESP 18; TEMP 36.1; O2SAT 96
[2024-09-18] MEDS: MORPHINE SULFATE (*CRX) 2 MG/ML INJ 1 MG IV PUSH (18:32)
[2024-09-18] MEDS: ONDANSETRON HCL ODT 4 MG TABLET PO (20:18)
[2024-09-18 21:30] VITALS: BP 103/61; PULSE 97; RESP 16; TEMP 36.6; O2SAT 100
[2024-09-19 05:23] VITALS: BP 112/62; PULSE 90; RESP 12; TEMP 36.8; O2SAT 97
[2024-09-19] MEDS: oxyCODONE/ACETAMINOPHEN (*CRX) 10-325 MG TABLET 1 TAB PO ×2 (05:30→09:10)
[2024-09-19 07:22] LABS: Basophils Absolute Auto 0.1 K/mm3 (0.0-0.1); Basophils Percent Auto 0.3 % (0.2-1.2); Eosinophils Absolute Auto 0.2 K/mm3 (0-0.3); Eosinophils Percent Auto 1.2 % (0-4.4); Hematocrit 26.9 % (37.0-47.0); Hemoglobin 8.4 g/dL (12.0-15.0); Immature Granulocyte Percent A 0.6 % (0-0.5); Lymphocytes Absolute Auto 1.72 K/mm3 (0.9-3.2); Lymphocytes Percent Auto 10.8 % (18.3-44.2); Mean Corpuscular HGB Conc 31.2 g/dl (32-36); Mean Corpuscular Hemoglobin 26.9 pg (26-34); Mean Corpuscular Volume 86.2 fl (80-100); Mean Platelet Volume 9.3 fl (7.4-10.4); Monocytes Absolute Auto 1.2 K/mm3 (0.1-0.6); Monocytes Percent Auto 7.4 % (2.6-8.5); Neutrophils Absolute Auto 12.7 K/mm3 (1.3-6.7); Neutrophils Percent Auto 79.7 % (45.5-73.1); Platelet Count Result 630 k/mm3 (150-375); Red Blood Count 3.12 M/mm3 (4.2-5.4); Red Cell Distribution Width 15.2 % (11.5-14.5)
[2024-09-19 08:19] LABS: Anion Gap 16 mmol/L (4-12); Blood Urea Nitrogen 8 mg/dL (7-17); Calcium 9.3 mg/dL (8.4-10.2); Carbon Dioxide 20 mmol/L (22-30); Chloride 100 mmol/L (98-107); Estimated CRCL calculation 90 ml/min; Estimated Glomerular Filt Rate > 60; Glucose 92 mg/dL (65-110); Potassium 4.7 mmol/L (3.4-5.0); Sodium 136 mmol/L (137-145)
[2024-09-19] MEDS: POTASSIUM CHLORIDE 20 MEQ ER TABLET 40 MEQ PO (09:10)
[2024-09-19] MEDS: FERROUS SULFATE 325 MG TABLET DR PO (09:10)
[2024-09-19] MEDS: FAMOTIDINE 20 MG TABLET PO (09:10)
[2024-09-19 11:30] LABS: Add Urine Microscopic? YES; Appearance Urine Clear (Clear); Bacteria Urine None Seen /hpf; Bilirubin Urine Negative (Negative); Blood Urine Negative (Negative); Calcium Oxalate Crystals Urine Present /hpf; Color Urine Yellow (Yellow); Glucose Urine UA Negative (Negative); Ketones Urine Trace mg/dL (Negative); Leukocyte Esterase Ur Negative LEU/UL (Negative); Need Manual Microscopic Reviewed; Nitrate Urine Negative (Negative); Non Pathogenic Casts 0-2; Protein Urine Trace mg/dL (Negative); Specific Grav Ur 1.024 (1.001-1.035); Squamous Epithelial Cell Urine Moderate /hpf (Few); Urobilinogen Urine 0.2 mg/dL (<2.0); WBC Urine 0-5 /hpf (0-3)
[2024-09-19] MEDS: ALPRAZolam (*CRX) 0.25 MG TABLET PO (12:13)
--- NOTE | 2024-09-19 13:39 | P.DS_ITS ---
DS: Admitting Diagnosis Discharge Date 09/19/2024 Admitting Diagnosis * Diverticulitis with abscess * Abdominal wall abscess * Chronic anemia DS: Discharge Diagnosis Discharge Diagnosis (1) Colon cancer without distant metastasis: Code(s): C18.9 - Malignant neoplasm of colon, unspecified Status: Acute Assessment and Plan: Stage II B perforated cancer of the sigmoid colon (2) Colon perforation: Code(s): K63.1 - Perforation of intestine (nontraumatic) Status: Acute Assessment and Plan: Due to malignancy (3) Colocutaneous fistula: Code(s): K63.2 - Fistula of intestine Status: Acute Assessment and Plan: Associated with the colon perforation and abscess (4) Abdominal wall abscess: Code(s): L02.211 - Cutaneous abscess of abdominal wall Status: Acute Assessment and Plan: Healing (5) Anemia: Qualifiers: Anemia type: other cause Other causes of anemia: chronic disease, other Qualified Code(s): D63.8 - Anemia in other chronic diseases classified elsewhere Code(s): D64.9 - Anemia, unspecified Status: Chronic Assessment and Plan: Improving. Home on iron supplement DS: Summary Hospital Course Hospital Course: Patient is a 33-year-old woman who had been having problems with left lower quadrant pain and presumptive diagnosis of diverticulitis since April of this year. She had been admitted to [facility] in April and again in June with diverticulitis. She was treated with antibiotics and discharged. This came back a 3rd time around 08/07/2024. On this occasion, she went to [facility] Emergency Room. Again her imaging suggested diverticulitis but now with 2 small abscesses. She was admitted to the hospital She was treated with intravenous antibiotics as an inpatient for 6 days and then discharged on oral antibiotics for a week. Unfortunately, her symptoms recurred and she had to be readmitted with, now a 5 cm abscess, on 09/01/2024. The pelvic abscess was drained with a pigtail catheter under CT guidance on 09/02/2024. She was improving and was discharged on 09/05/2024 with the pigtail catheter in place. She was home for 3 days but had recurring and severe abdominal pain with west colored drainage now seeping around the pigtail catheter. She came back to the emergency room and was admitted on 09/08/2024. CT scan was repeated and showed the abscess had actually enlarged and was adherent to the abdominal wall in the left lower quadrant. It was felt the pigtail catheter diameter was too small for the thick drainage. That same day of admission, she went back to CT and an 8.5 [place] pigtail catheter was exchanged for a 12 [place] pigtail catheter. Patient improved over the next 48 hours but was draining now stool from the pigtail catheter and sometimes from around the pigtail catheter. By the 3rd hospital day, 09/11/2024, she was leaking a large enough volume of stool from around the pigtail catheter that a stoma appliance had to be placed over the opening. After discussion, she agreed to go ahead with laparotomy for sigmoid colon resection and possibly colostomy. She did go to surgery on 09/12/2024 and a large mass with perforation adherent to left lower quadrant of the abdominal wall and emanating from the sigmoid colon was found. There were no diverticulitis noted. She underwent sigmoid colon resection. Gross inspection of the sigmoid by pathology was suspicious for a tumor. She was able to have an end-to-end hand-sewn colonic anastomosis after the resection. An abdominal wall abscess was noted as well. Omentum adherent to the tumor at the abdominal wall was resected as a specimen. A rim of peritoneum at the attachment of the sigmoid colon on the abdominal wall was also removed. Final pathology showed a T4a N0 M0 sigmoid colon cancer. Neither the omentum or the abdominal wall biopsies showed evidence of tumor. This would be a stage II B malignancy with perforation. Following surgery, patient did well for several days. She had quite a bit of postoperative pain. The left lower quadrant abscess site was packed but then healed up fairly quickly. She was eating solid food and much more comfortable, having bowel movements and able to ambulate independently. Her white blood cell count went from normal to 11,800 on 09/18. Examination showed that the upper 4 cm of her abdominal wound had a pocket of cloudy fluid. This area was opened. The fascia was intact. The wound did not track any further toward the pubis. It looked good again on 09/19/2024. Silver gel dressings with gauze were started. Her white blood cell count however went up to 16,000 on 09/19/2024. She still had no fever, no tachycardia, no increase in abdominal pain or diarrhea. She was eating well. CT scan of the abdomen and pelvis was done and showed a left lower quadrant abscess. CT guided pigtail catheter drain was then placed in the abscess on 09/19/2024. Patient tolerated this well and was very anxious to be discharged. She is discharged today 09/19/2024 with plans to follow-up in the office with Dr. Lang on 09/22/2024. She was instructed on management of the pigtail catheter as far as emptying the drainage bag and recording the output. She was instructed on maintaining the suction on the drainage catheter. She will be staying with a friend and will perform silver gel gauze dressings to the open area of the upper abdominal wound as well as the small residual left lower quadrant abscess wound. She is discharged today in improved condition with very short-term follow-up with Dr. Lang in 3 days. Status at Discharge Functional status at discharge: independent ambulation Overall status at discharge: patient is progressing back to baseline Time Spent with Patient Time attestation: Total time spent providing and/or coordinating discharge services: Time spent: Greater than 30 minutes DS: Data Data Completed and Pending Completed studies during hospitalization: Pending at discharge 09/12/24 10:37 Surgical [PTH] Routine Surgical [PTH] Routine Surgical [PTH] Routine Labs on day of discharge: Labs from last 24 hours 09/19/24 09/19/24 10:34 07:00 WBC 16.0 H RBC 3.12 L Hgb 8.4 L Hct 26.9 L MCV 86.2 MCH 26.9 MCHC 31.2 L RDW 15.2 H Plt Count 630 H MPV 9.3 Immature Gran % (Auto) 0.6 H Neut % (Auto) 79.7 H Lymph % (Auto) 10.8 L [place] % (Auto) 7.4 Eos % (Auto) 1.2 Baso % (Auto) 0.3 Lymph # (Auto) 1.72 [place] # (Auto) 1.2 H Eos # (Auto) 0.2 Baso # (Auto) 0.1 Abs Immat Gran (auto) 0.10 H Absolute Neuts (auto) 12.7 H Absolute Nucleated RBC 0.000 Nucleated RBC % 0.0 Sodium 136 L Potassium 4.7 Chloride 100 Carbon Dioxide 20 L Anion Gap 16 H BUN 8 Creatinine 0.60 L Estim Creat Clear Calc 90 Estimated GFR > 60 Glucose 92 Calcium 9.3 Urine Color Yellow Urine Appearance Clear Urine pH 6.0 Ur Specific [place] 1.024 Urine Protein Trace Urine Glucose (UA) Negative Urine Ketones Trace H Ur Blood (Man) Negative Urine Nitrate Negative Urine Bilirubin Negative Urine Urobilinogen 0.2 Add Ur Microanalysis Reviewed Leukocyte Esterase Rfl Negative Urine RBC 3-5 H Urine WBC 0-5 Ur Squamous Epith Cells Moderate Calcium Oxalate Crystal Present Urine Bacteria None seen Urine Casts 0-2 Discharge Plan Discharge Attending physician on discharge: Aguilar Lang Discharging Clinician: Aguilar Lang Anticipated Discharge Date/Time: 09/19/24 19:00 Patient Disposition: Home, Self-Care Activity: may shower, no straining and as tolerated Diet: regular Wound Care Instructions: other - see discharge instructions Discharge Instructions: * Remove dressings to incision and left lower quadrant to shower. * Ambulate 5-10 minutes at least 3 times a day. * May drive a car on Sunday * No lifting over 20 lb. No heavy exertion. * Place silver gel in the open wound on upper incision and place small amount of 4 x 4 gauze in the wound. Cover with 4 x [address] silver gel in the left lower quadrant wound. No packing here, just cover with 4 x 4 gauze. * Prescriptions for ciprofloxacin and metronidazole have been sent to your pharmacy. Prescriptions for Percocet and Ketoralac have been sent as well. Scripts for Compazine and Iron supplement have also been sent. Percocet, Ketoralac, and Compazine are on an as-needed basis. Antibiotics and Ferrous Sulfate are to be taken regularly as written on the bottle. * Call or go to the emergency room for temperature over 100.5, vomiting, severe abdominal pain, persistent bleeding, or other significant change in condition. * Appointment has been set up to see Dr. Lang at 10:15 a.m. on Sunday09/22/2024. Please arrive 15-30 minutes early. * We will discuss outpatient abscess drainage procedure at the Sunday office visit. * You will need to get another CBC on Sunday. It can be done before or after your office visit. Patient Instructions: Antibiotic Form, Pain Management (DC) Stand Alone Forms: General Discharge Information Follow-up/Referrals: Aguilar Lang MD [Physician] - 09/22/24 10:15 am (Appointment has already been scheduled) Discharge Medications: New oxycodone-acetaminophen [Percocet] 5-325 mg tablet 1 - 2 tablet PO Q6H PRN (Reason: pain) Qty: 20 0RF ferrous sulfate 325 mg (65 mg iron) Tablet,Delayed Release (Dr/Ec) 325 mg PO BID Qty: 60 2RF ciprofloxacin HCl 500 mg Tablet 500 mg PO Q12HR Qty: 14 0RF metronidazole 500 mg Tablet 500 mg PO Q8HR Qty: 21 0RF prochlorperazine [Compro] 25 mg suppository 25 mg RECTAL Q8H PRN (Reason: nausea and vomiting) Qty: 6 0RF Discontinued ondansetron 4 mg tablet,disintegrating 4 mg PO Q8H amoxicillin-pot clavulanate 875-125 mg tablet 1 tablet PO Q12H Qty: 10 0RF ketorolac 10 mg tablet 10 mg PO Q6H 4 Days Qty: 16 0RF oxycodone-acetaminophen 5-325 mg tablet 0.5 - 1 tablet PO Q6H PRN (Reason: pain) Qty: 20 0RF Other Ambulatory Orders: Complete Blood Count with Diff (Routine) Timeframe: 20240922 Location: Determined by Patient Ordered By: Aguilar Lang Date of admission: 09/08/24 00:14 Primary Care Provider: UNKNOWN,DOCTOR Admitting Provider: Elham Vences Attending physician on admission: Elham Vences Condition: Improved
[2024-09-19 14:00] VITALS: BP 155/78; PULSE 86; RESP 18; TEMP 36.6; O2SAT 100
[2024-09-19] MEDS: metroNIDAZOLE 500 MG TABLET PO (14:58)
== END 2024-09-19 16:05 | disposition home or self-care (01) | DRG 231 ==
LOC: ANHED 09-08 00:25 → ANH3MEDSUR 09-08 01:07
PROVIDERS: Nurse Practitioner Family; Radiology Diagnostic Radiology; Admitting Provider Surgery; Emergency Provider Student in an Organized Health Care Education/Training Program; Visit Provider Surgery
PROC: 0D9N30Z Drainage of Sigmoid Colon with Drainage Device, Percutaneous Approach (ICD-10-PCS; CPT 75989; principal; 2024-09-08 11:00)
PROC: 0DTN0ZZ Resection of Sigmoid Colon, Open Approach (ICD-10-PCS; CPT 44143; principal; 2024-09-12 09:00)
DX: C18.7 Malignant neoplasm of sigmoid colon (principal); K57.20 Diverticulitis of large intestine with perforation and abscess without bleeding; K63.2 Fistula of intestine; K65.8 Other peritonitis; L02.211 Cutaneous abscess of abdominal wall; D63.0 Anemia in neoplastic disease; F17.290 Nicotine dependence, other tobacco product, uncomplicated; F41.9 Anxiety disorder, unspecified
CPT/HCPCS: 36415; 71046; 74176; 74177; 75989; 80048; 80053; 81001; 82378; 83605; 83690; 85025; 85027; 85610; 85730; 86850; 86900; 86901; 87040; 88305; 88309; 88342; 93005; 96361; 96374; 96375; 96376; 99285; A9270; C1729; C1769; J0330; J0780; J1100; J1171; J1200; J1630; J1650; J1741; J1836; J1939; J2003; J2060; J2250; J2270; J2405; J2543; J2704; J3010; J7030; J7040; J7120; Q9967

== ENCOUNTER 2024-09-22 12:53 | Inpatient (IN) | payer OTHER, SELFPAY ==
[2024-09-22] VITALS (18 sets, daily range): BP systolic 84–109; BP diastolic 48–76; PULSE 62–90; RESP 10–18; TEMP 35.7–36.9; O2SAT 98–100; BMI 22.2
--- NOTE | ~2024-09-22 | CT_ITS ---
EXAMINATION: CT guide absc cath placement DATE: 09/22/2024 15:35 INDICATION: Left lower quadrant abscess TECHNIQUE: The procedure including the risks and benefits was discussed with the patient. Risks discu ssed included bleeding and infection. The patient understood the risks and benefits and agreed to pro ceed. The patient was confirmed to be receiving appropriate antibiotic coverage. The skin overlying the left lower quadrant was prepped and draped in usual sterile fashion. Conscious sedation was provi ded with 125 mcg fentanyl and 2 mg Versed IV. Anesthetic was administered with 1% lidocaine subcutane ously. A parts identifier CT of the lower abdomen and pelvis was obtained with 100 mL Omnipaque-350 intravenous contrast. An 18-gauge trochar needle was inserted into the peritoneal fluid collection utilizing CT g uidance. The inner stylette was removed and a J-wire advanced into the fluid collection with position confirmed by CT. The needle was removed and the wire and utilizing Seldinger technique the tract was serially dilated to 8 E[place]an. An 8.5 [place]an pigtail catheter was then advanced over the wire into th e fluid collection with position confirmed by CT. The loop was formed and locked and the wire removed . 8 mL of opaque reddish-west fluid was aspirated and sent to the lab for Gram stain and cultures. The catheter was stitched to the skin with suture. Antibiotic ointment and a sterile dressing were appli ed. There were no immediate complications. The dose-length product was 356.85 mGy-cm. FINDINGS: CT images demonstrate the catheter within the small fluid collection at the left lower quad rant/anterolateral left pelvis. 8 mL fluid was aspirated for testing. IMPRESSION: 1. Successful CT-guided left lower quadrant abscess drainage catheter placement. 2. 8 mL fluid was sent for aerobic and anaerobic cultures. 3. The catheter will be managed by Dr. Lang. Reviewed, dictated and finalized at location A. IMPRESSION: 1. Successful CT-guided left lower quadrant abscess drainage catheter placement . 2. 8 mL fluid was sent for aerobic and anaerobic cultures. 3. The catheter will be managed by Dr. Lang.
--- NOTE | 2024-09-22 12:24 | ADMGEN ---
This patient, Libby Maldonado, was admitted to Medical Room 349-01. Patient/family oriented to hospital policies and general routines including ID bracelet, bed and alarms, visiting hours, pain management, procedures, bathroom and other care routines, personal items, smoking policy, room service/diet, and visiting hours. Information on how to activate the Rapid Response Team has been discussed. Patient/Family are encouraged to report perceived risks to care and to ask questions if they do not understand what they are told or what they should do.
[2024-09-22 13:40] LABS: Basophils Percent Auto 0.3 % (0.2-1.2); Eosinophils Percent Auto 0.2 % (0-4.4); Hematocrit 24.7 % (37.0-47.0); Hemoglobin 7.6 g/dL (12.0-15.0); Immature Granulocyte Absolute 0.04 K/mm3 (0.00-0.031); Immature Granulocyte Percent A 0.4 % (0-0.5); Lymphocytes Absolute Auto 0.91 K/mm3 (0.9-3.2); Lymphocytes Percent Auto 9.6 % (18.3-44.2); Mean Corpuscular HGB Conc 30.8 g/dl (32-36); Mean Corpuscular Hemoglobin 26.9 pg (26-34); Mean Corpuscular Volume 87.3 fl (80-100); Mean Platelet Volume 8.8 fl (7.4-10.4); Monocytes Absolute Auto 0.5 K/mm3 (0.1-0.6); Monocytes Percent Auto 5.1 % (2.6-8.5); Neutrophils Percent Auto 84.4 % (45.5-73.1); Platelet Count Result 471 k/mm3 (150-375); Red Blood Count 2.83 M/mm3 (4.2-5.4); White Blood Count 9.4 K/mm3 (4.5-10.0)
[2024-09-22 13:57] LABS: Alanine Aminotransferase 8 U/L (6-35); Albumin Level 3.7 g/dL (3.5-5.1); Alkaline Phosphatase 62 U/L (38-126); Anion Gap 6 mmol/L (4-12); Aspartate Amino Transferase 15 U/L (14-36); Bilirubin,Total 0.3 mg/dL (0.2-1.3); Blood Urea Nitrogen 12 mg/dL (7-17); Carbon Dioxide 29 mmol/L (22-30); Chloride 104 mmol/L (98-107); Estimated Glomerular Filt Rate > 60; Glucose 101 mg/dL (65-110); Potassium 4.4 mmol/L (3.4-5.0); Sodium 139 mmol/L (137-145)
[2024-09-22 14:00] LABS: INR 1.3; Prothrombin Time 16.3 Seconds (11.1-14.7)
[2024-09-22 14:01] LABS: Partial Thromboplastin Time 33.6 Seconds (22.3-36.8)
--- NOTE | 2024-09-22 15:20 | SUR.PHASEII ---
Phone report to nurse [address] Pt stable without distress at this time. Pt c/o nausea and Loli informed. IV site patent/intact and locked. New compression drain in place left lower abd. [place] fluid observed in tubing and reservoir. 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
--- NOTE | 2024-09-22 15:24 | WPDMODSED ---
Moderate Sedation Note-Pt Data Patient Data Diagnosis: abscess Present Complaint: abscess Procedure to be performed/Plan: LLQ percutaneous abscess drain placement. Allergies Allergy/AdvReac Type Severity Reaction Status Date / Time No Known Allergies Allergy Verified 09/12/24 09:28 Home Medications Medication Instructions Recorded Confirmed Type ciprofloxacin HCl 500 mg tablet 500 mg PO Q12HR #14 tabs 09/19/24 09/22/24 Rx ferrous sulfate 325 mg (65 mg 325 mg PO BID #60 tabs 09/19/24 09/22/24 Rx iron) tablet,delayed release metronidazole 500 mg tablet 500 mg PO Q8HR #21 tabs 09/19/24 09/22/24 Rx oxycodone-acetaminophen 5 mg-325 1 - 2 tablet PO Q6H PRN pain #20 09/19/24 09/22/24 Rx mg tablet (Percocet) tabs prochlorperazine 25 mg rectal 25 mg RECTAL Q8H PRN nausea and 09/19/24 09/22/24 Rx suppository (Compro) vomiting #6 ea Current Medications: Active Medications Enoxaparin Sodium (Enoxaparin 30 Mg/0.3 Ml Syringe) 30 mg SUB-Q Q12HR FIDELIA Famotidine (Famotidine 20 Mg/2 Ml Vial) 20 mg IV PUSH Q12HR FIDELIA Lactated Ringer's (Lr - Lactated Ringers Iv) 1,000 mls @ 100 mls/hr IV CONT .Q10H FIDELIA Ibuprofen (Caldolor 800 Mg/200 Ml) 800 mg in 200 mls @ 400 mls/hr IVPB Q6H PRN PRN Reason: Breakthrough Pain Rated 1-3 or NPO Ceftriaxone Sodium (Rocephin 1 Gm/Ns 50 Ml) 1 gm in 50 mls @ 100 mls/hr IVPB Q24H FIDELIA Metronidazole (Flagyl 500 Mg/Iso Soln 100 Ml) 500 mg in 100 mls @ 100 mls/hr IVPB Q8H FIDELIA Lorazepam (Lorazepam Inj (*Crx) 2 Mg/Ml Vial) 1 mg IV PUSH Q6H PRN PRN Reason: Anxiety Morphine Sulfate (Morphine Sulfate (*Crx) 2 Mg/Ml Inj) 2 mg IV PUSH Q2H PRN PRN Reason: Breakthrough Pain Rated 4-6 or NPO Morphine Sulfate (Morphine Sulfate (*Crx) 4 Mg/Ml Inj) 4 mg IV PUSH Q2H PRN PRN Reason: Breakthrough Pain Rated 7-10 or NPO Naloxone HCl (Naloxone Hcl 0.4 Mg/Ml Vial) 0.1 mg IV PUSH Q2M PRN PRN Reason: Opiate Reversal Trazodone HCl (Trazodone Hcl 50 Mg Tablet) 50 mg PO HS PRN PRN Reason: Insomnia Sedation/Anesthesia: No previous sedation/anesthesia problems (including family history). [facility] Past Medical History Medical History (Updated 09/22/24 @ 11:22 by Coleen Hinson CMA) Anxiety Asthma in childhood, resolved Colocutaneous fistula Diverticulitis of large intestine with abscess Fecal peritonitis Hypotension Surgical History Surgical History (Updated 09/22/24 @ 11:18 by Coleen Hinson CMA) H/O gynecological procedure Mirena IUD insertion History of colon resection 09/08/2024 - Sigmoid colon resection with hand-sewn end-to-end anastomosis, drainage abdominal wall abscess Family History Family History Mother Diverticulitis Father Heart problem Social History Social History Years smoked: 15 Smoking status: Current every day smoker Tobacco type: e-cigarettes/vaping Second hand tobacco smoke exposure: Yes Alcohol intake: never Substance use: current Substance use type: marijuana Other substance usage details: Vape Do You Feel Safe in your Home?: Yes Lack of Transportation: No Lack of Food: Never True Current Housing: I Have Housing Concerned About Future Housing: No Difficulty Paying Gas/Electric Bills: YES Difficulty Paying for Meds: No Currently Unemployed: YES Education: High School Diploma/GED Difficulty w/ Childcare or Family Care: No Occupation/Education: occupation Gender identity (if verbalized by the patient): Female Spiritual care concerns: No Mod Sed Physical Exam Physical Exam Pre Procedural Exam: Normal: Throat, Lungs, Heart Rate and Heart Rhythm and Variation: Appearance (ill appearing and tearfull) and Abdomen (multiple surgical wounds and dressings. diffuse TTP) Hours since solid foods: 14 Hours since liquid intake: 14 Mallampati Classification: class II Internal Medicine - PN: Obj Da Vital Signs Vital Signs: Vital Signs - 24 hr 09/22/24 13:26 09/22/24 15:22 Temperature 96.3 F L Pulse Rate 62 Respiratory Rate 18 Blood Pressure 95/48 L Pulse Oximetry 100 Oxygen Delivery Room Air Meds/Results Medications: Active Medications Generic Name Dose Route Start Last Admin Trade Name Freq PRN Reason Stop Dose Admin Enoxaparin Sodium 30 mg 09/22/24 21:00 Enoxaparin 30 Mg/0.3 Ml Syringe SUB-Q Q12HR FIDELIA Famotidine 20 mg 09/22/24 13:00 Famotidine 20 Mg/2 Ml Vial IV PUSH Q12HR FIDELIA Lactated Ringer's 1,000 mls @ 100 mls/hr 09/22/24 12:45 Lr - Lactated Ringers Iv IV CONT .Q10H FIDELIA Ibuprofen 800 mg in 200 mls @ 400 mls/hr 09/22/24 12:40 Caldolor 800 Mg/200 Ml IVPB Q6H PRN Breakthrough Pain Rated 1-3 or NPO Ceftriaxone Sodium 1 gm in 50 mls @ 100 mls/hr 09/22/24 13:00 Rocephin 1 Gm/Ns 50 Ml IVPB Q24H FIDELIA Metronidazole 500 mg in 100 mls @ 100 mls/hr 09/22/24 14:00 Flagyl 500 Mg/Iso Soln 100 Ml IVPB Q8H FIDELIA Lorazepam 1 mg 09/22/24 12:50 Lorazepam Inj (*Crx) 2 Mg/Ml Vial IV PUSH Q6H PRN Anxiety Morphine Sulfate 2 mg 09/22/24 12:45 Morphine Sulfate (*Crx) 2 Mg/Ml Inj IV PUSH Q2H PRN Breakthrough Pain Rated 4-6 or NPO Morphine Sulfate 4 mg 09/22/24 12:45 Morphine Sulfate (*Crx) 4 Mg/Ml Inj IV PUSH Q2H PRN Breakthrough Pain Rated 7-10 or NPO Naloxone HCl 0.1 mg 09/22/24 12:40 Naloxone Hcl 0.4 Mg/Ml Vial IV PUSH Q2M PRN Opiate Reversal Trazodone HCl 50 mg 09/22/24 12:50 Trazodone Hcl 50 Mg Tablet PO HS PRN Insomnia Labs 09/22/24 13:30 09/22/24 13:30 Labs: Laboratory Results - last 24 hr 09/22/24 13:30 WBC 9.4 RBC 2.83 L Hgb 7.6 L Hct 24.7 L MCV 87.3 MCH 26.9 MCHC 30.8 L RDW 15.0 H Plt Count 471 H MPV 8.8 Immature Gran % (Auto) 0.4 Neut % (Auto) 84.4 H Lymph % (Auto) 9.6 L [place] % (Auto) 5.1 Eos % (Auto) 0.2 Baso % (Auto) 0.3 Lymph # (Auto) 0.91 [place] # (Auto) 0.5 Eos # (Auto) 0.0 Baso # (Auto) 0.0 Abs Immat Gran (auto) 0.04 H Absolute Neuts (auto) 8.0 H Absolute Nucleated RBC 0.000 Nucleated RBC % 0.0 PT 16.3 H INR 1.3 APTT 33.6 Sodium 139 Potassium 4.4 Chloride 104 Carbon Dioxide 29 Anion Gap 6 BUN 12 Creatinine 0.60 L Estim Creat Clear Calc Not Reportable Estimated GFR > 60 Glucose 101 Calcium 9.0 Total Bilirubin 0.3 AST 15 ALT 8 Alkaline Phosphatase 62 Total Protein 7.0 Albumin 3.7 ASA Classification/Sedation ASA Classification/Sedation ASA Class: III Emergent: No Risks: Risks, benefits and alternatives explained and patient/family accepted plan for sedation. Patient re-evaluated immediately prior to sedation.
--- NOTE | 2024-09-22 15:30 | SUR.PHASEII ---
Pt to room 349 safely and bedside report to nurse En[place].
[2024-09-22] MEDS: FAMOTIDINE 20 MG/2 ML VIAL IV PUSH ×2 (15:47→20:57)
[2024-09-22] MEDS: LACTATED RINGERS 1,000 ML 100 ML IV CONT (15:48)
[2024-09-22] MEDS: metroNIDAZOLE 500 MG/ISO 100ML 500 MG/100 ML BAG 100 MG IVPB ×2 (16:20→21:00)
[2024-09-22] MEDS: MORPHINE SULFATE (*CRX) 4 MG/ML INJ IV PUSH (16:23)
[2024-09-22] MEDS: PROCHLORPERAZINE EDISYLATE 10 MG/2 ML VIAL IV PUSH (16:23)
[2024-09-22] MEDS: FERROUS SULFATE 325 MG TABLET DR PO (16:24)
[2024-09-22] MEDS: SODIUM CHLORIDE 0.9% IV 1,000 ML 999 ML IV CONT (17:18)
--- NOTE | 2024-09-22 17:43 | P.HP_ITS ---
H&P: HPI History of Present Illness Date/Time: 09/22/24 17:43 Chief Complaint: Hypotension, abdominal pain, nausea Narrative: Patient is a 33-year-old woman who 1st presented to [place] with abdominal pain and CT scan evidence of diverticulitis with 2 small abscesses. She had already been treated at [facility] on a couple of different admissions for this but was still having problems when she came to our emergency room in mid July. She was treated with IV antibiotics and then discharged. She did well at home for a while but then had increasing pain. When she came back to the emergency room, she was found to have a 5 cm abscess, larger than before, as well as signs of infection and sepsis. She was admitted again and a CT-guided percutaneous pigtail catheter was placed in the abscess. This drained purulent fluid and we were expecting the patient to heal following this with plans for outpatient resection of diverticulitis. Unfortunately, she did not do well at home and came back in now draining fecal a material from the pigtail catheter. The pigtail catheter was exchanged for a larger catheter but, although this improved things for a few days, eventually stool started draining out around the pigtail catheter. She was taken for open surgery on 09/12 2024 and sigmoidectomy was performed. By this time the patient had perforated sigmoid with colo cutaneous fistula. The perforated area was adherent to the left lower quadrant abdominal wall. There was a left lower quadrant abscess associated with this in the abdominal wall. The sigmoidectomy including the area of perforation was performed. Pathology on this did not show diverticulitis but instead showed stage 2 B adenocarcinoma. The surrounding omentum was biopsied and excised and showed no tumor. The peritoneum around the colocutaneous fistula was also excised and showed no evidence of malignancy. Patient did have hand-sewn colonic anastomosis. She was improving and plans were being made for discharge when and Sunday last week her white blood cell count started to rise. On Sunday it was up to 16,[address] scan of the abdomen and pelvis was done. This showed a left lower quadrant abscess. Plans were made for percutaneous drainage but, the patient had been through so much already, especially with having been found to have cancer only a few days before, that she wanted to have deep sedation for the procedure. This was technically arranged but then fact that the patient had eaten full breakfast that morning made the procedure too risky. She refused to have the procedure done under light sedation. She also very much wanted to be discharged. She was discharged home on oral antibiotics with close follow-up with me this morning in the office. She did well Sunday and even Sunday at home. Then yesterday she started having more abdominal pain, felt very weak, had nausea and vomiting and was essentially miserable. She came to my scheduled office appointment this morning and, although she had showered at home, she was noted to have a blood pressure of 80/50 and was to week to move from the wheelchair to the examination table. She was very tearful and uncomfortable. She was then directly admitted. IV fluids have been started analgesics are available. Labs have been drawn and the patient was scheduled to have a CT-guided percutaneous drainage of the left lower quadrant abscess. She was amenable to this under sedation per Dr. Alvarado, the radiologist. Procedure has been performed and some blood-tinged purulent fluid was drained and sent for cultures. Patient's white blood cell count is in the norm her range but at the upper limit. Her left shift is a little better than it was on Sunday. Electrolytes look good. She is quite anemic. She is returned to the hospital now on her observation status for percutaneous drainage and fluid resuscitation with pain control. Review of Systems Review of Systems: All systems reviewed & are unremarkable except as noted in HPI and below (HPI) Constitutional: Constitutional: Reports as per HPI, Reports anorexia and Reports lethargy Comments: Insomnia Gastrointestinal: Gastrointestinal: Reports as per HPI, Reports abdominal pain, Reports constipation and Reports nausea Comments: Painful bowel movements and constipation Psychiatric: Psychiatric: Reports abnormal sleep pattern (Insomnia), Reports anxiety and Reports change in appetite PMFSH Past Medical History Medical History (Updated 09/22/24 @ 18:03 by Aguilar Lang MD) Anxiety Asthma in childhood, resolved Colocutaneous fistula Diverticulitis of large intestine with abscess Fecal peritonitis Hypotension Surgical History Surgical History (Updated 09/22/24 @ 11:18 by Coleen Hinson CMA) H/O gynecological procedure Mirena IUD insertion History of colon resection 09/08/2024 - Sigmoid colon resection with hand-sewn end-to-end anastomosis, drainage abdominal wall abscess Family History Family History Mother Diverticulitis Father Heart problem Social History Social History Years smoked: 15 Smoking status: Current every day smoker Tobacco type: e-cigarettes/vaping Second hand tobacco smoke exposure: Yes Alcohol intake: never Substance use: current Substance use type: marijuana Other substance usage details: Vape Do You Feel Safe in your Home?: Yes Lack of Transportation: No Lack of Food: Never True Current Housing: I Have Housing Concerned About Future Housing: No Difficulty Paying Gas/Electric Bills: YES Difficulty Paying for Meds: No Currently Unemployed: YES Education: High School Diploma/GED Difficulty w/ Childcare or Family Care: No Occupation/Education: occupation Gender identity (if verbalized by the patient): Female Spiritual care concerns: No Meds Home Medications and Allergies Home Medications Medication Instructions Recorded Confirmed Type ciprofloxacin HCl 500 mg tablet 500 mg PO Q12HR #14 tabs 09/19/24 09/22/24 Rx ferrous sulfate 325 mg (65 mg 325 mg PO BID #60 tabs 09/19/24 09/22/24 Rx iron) tablet,delayed release metronidazole 500 mg tablet 500 mg PO Q8HR #21 tabs 09/19/24 09/22/24 Rx oxycodone-acetaminophen 5 mg-325 1 - 2 tablet PO Q6H PRN pain #20 09/19/24 09/22/24 Rx mg tablet (Percocet) tabs prochlorperazine 25 mg rectal 25 mg RECTAL Q8H PRN nausea and 09/19/24 09/22/24 Rx suppository (Compro) vomiting #6 ea Allergies Allergy/AdvReac Type Severity Reaction Status Date / Time No Known Allergies Allergy Verified 09/12/24 09:28 Vital Signs Vital Signs - 24 hr 09/22/24 13:26 09/22/24 15:22 09/22/24 14:15 Temperature 35.7 C L Pulse Rate 62 75 Respiratory Rate 18 12 Blood Pressure 95/48 L 102/62 Pulse Oximetry 100 100 Oxygen Delivery Room Air Room Air Oxygen Flow Rate 09/22/24 14:20 09/22/24 15:15 09/22/24 15:20 Temperature Pulse Rate 72 69 73 Respiratory Rate 10 L 14 15 Blood Pressure 106/50 L 103/61 108/64 Pulse Oximetry 100 100 100 Oxygen Delivery Nasal Cannula Room Air Room Air Oxygen Flow Rate 2 09/22/24 14:25 09/22/24 14:30 09/22/24 14:35 Temperature Pulse Rate 79 86 79 Respiratory Rate 10 L 16 18 Blood Pressure 102/64 109/62 105/62 Pulse Oximetry 100 99 100 Oxygen Delivery Nasal Cannula Nasal Cannula Nasal Cannula Oxygen Flow Rate 2 2 2 09/22/24 14:40 09/22/24 14:45 09/22/24 14:50 Temperature Pulse Rate 81 86 82 Respiratory Rate 12 12 12 Blood Pressure 104/58 L 105/72 102/60 Pulse Oximetry 100 100 100 Oxygen Delivery Nasal Cannula Nasal Cannula Nasal Cannula Oxygen Flow Rate 2 2 2 09/22/24 14:55 09/22/24 15:00 09/22/24 15:05 Temperature Pulse Rate 75 73 77 Respiratory Rate 13 12 12 Blood Pressure 93/58 L 98/57 L 102/67 Pulse Oximetry 100 100 98 Oxygen Delivery Nasal Cannula Nasal Cannula Nasal Cannula Oxygen Flow Rate 2 2 2 09/22/24 15:10 09/22/24 15:25 09/22/24 16:31 Temperature 36.5 C Pulse Rate 71 70 67 Respiratory Rate 18 14 18 Blood Pressure 104/60 104/61 84/61 L Pulse Oximetry 100 100 100 Oxygen Delivery Nasal Cannula Room Air Oxygen Flow Rate 2 Exam Const: General: cooperative, comfortable, no acute distress, alert, awake, tired appearing, uncomfortable and thin Nutritional Appearance: thin Orientation/consciousness: patient oriented x3 and No confusion HENMT: Head: normocephalic and atraumatic Mouth: Yes Normal oral and palatal mucosa present Neck: Neck: normal visual inspection, no lymphadenopathy and nontender Resp: Effort & Inspection: normal respiratory effort Auscultation: clear to auscultation bilaterally Cardio: Rate: regular rate Rhythm: regular rhythm Heart sounds: no gallops, no murmurs and no rubs GI: Inspection: non-distended, incision (Open area at top of incision is pain can healing, left lower quadrant wound), scaphoid and no visible herniation GI Palp: Yes Firmness to palpation present (GI), Yes Tenderness to palpation present (GI) (Incision and lower quadrants with guarding), Yes Guarding due to palpation present (GI), No Hepatomegaly present, No Splenomegaly present, No Hernia present and No Palpable mass present Auscultation: Hypoactive bowel sounds present Skin: Lesions: no lesions Rashes: no rashes Neuro: General: no focal motor deficits and CN's II-XI intact bilaterally Cranial nerves: Yes Equal, round and reactive pupils present, Yes Bilaterally intact EOM present, Yes facial symmetry and Yes Midline tongue present Speech: normal speech Motor exam (neuro): 5/5 motor strength present throughout and Motor abnormalities not present Extrem: General: no clubbing, cyanosis or edema and edema Psych: Speech and movement: Clear speech present Affect: Sad affect present (Tearful) and Depressed mood present Thought process: Normal thought process present Thought content: Yes Depressive thoughts present Insight: Good insight present (Psych) H&P: Results Labs Labs: Short CBC 09/22/24 Range/Units 13:30 WBC 9.4 (4.5-10.0) K/mm3 Hgb 7.6 L (12.0-15.0) g/dL Hct 24.7 L (37.0-47.0) % Plt Count 471 H (150-375) k/mm3 BMP 09/22/24 13:30 Sodium 139 Potassium 4.4 Chloride 104 Carbon Dioxide 29 BUN 12 Creatinine 0.60 L Glucose 101 Calcium 9.0 Liver Function 09/22/24 Range/Units 13:30 Total Bilirubin 0.3 (0.2-1.3) mg/dL AST 15 (14-36) U/L ALT 8 (6-35) U/L Alkaline Phosphatase 62 (38-126) U/L Albumin 3.7 (3.5-5.1) g/dL Assessment and Plan Assessment and plan (1) Left lower quadrant abdominal abscess: Code(s): K65.1 - Peritoneal abscess Status: Acute Assessment and Plan: Drained percutaneously by Dr. Alvarado earlier today. Seropurulent fluid draining. No evidence of stool. Probably was the source of her leukocytosis 3 days ago. (2) Colocutaneous fistula: Code(s): K63.2 - Fistula of intestine Status: Acute Assessment and Plan: Resolved with sigmoidectomy and anastomosis 09/12/2024 (3) Colon cancer without distant metastasis: Code(s): C18.9 - Malignant neoplasm of colon, unspecified Status: Acute Assessment and Plan: T4a N0 M0 sigmoid colon cancer, stage II B (4) History of colon resection: Code(s): Z90.49 - Acquired absence of other specified parts of digestive tract Status: Acute Assessment and Plan: Resection was 10 days ago (5) Hypotension: Qualifiers: Hypotension type: hypotension due to hypovolemia Qualified Code(s): E86.1 - Hypovolemia Code(s): I95.9 - Hypotension, unspecified Status: Acute Assessment and Plan: Mild with blood pressure in the office of 80/50. Has been better since in the hospital. Receiving IV fluids (6) Dehydration: Code(s): E86.0 - Dehydration Status: Acute Assessment and Plan: Not eating and intra-abdominal abscess causing dehydration (7) Anemia: Qualifiers: Anemia type: other cause Other causes of anemia: chronic disease, other Qualified Code(s): D63.8 - Anemia in other chronic diseases classified elsewhere Code(s): D64.9 - Anemia, unspecified Status: Chronic Assessment and Plan: H&H lower than on discharge. Continue iron supplement. With IV fluids, expect this to drop even further.
[2024-09-22] MEDS: traZODone HCL 50 MG TABLET PO (20:57)
[2024-09-22] MEDS: ENOXAPARIN 30 MG/0.3 ML SYRINGE SUB-Q (20:57)
[2024-09-23 00:25] VITALS: BP 115/62; PULSE 102; RESP 16; TEMP 36.9; O2SAT 100
[2024-09-23 04:02] VITALS: BP 106/63; PULSE 85; RESP 16; TEMP 36.8; O2SAT 100
[2024-09-23] MEDS: IBUPROFEN IV 800 MG/200 ML 800 MG/200 ML BAG 400 MG IVPB ×2 (05:12→13:14)
[2024-09-23] MEDS: metroNIDAZOLE 500 MG/ISO 100ML 500 MG/100 ML BAG 100 MG IVPB ×3 (05:15→21:00)
[2024-09-23] MEDS: LACTATED RINGERS 1,000 ML 100 ML IV CONT ×2 (05:15→18:17)
[2024-09-23 06:38] LABS: Basophils Percent Auto 0.5 % (0.2-1.2); Eosinophils Percent Auto 0.1 % (0-4.4); Hematocrit 23.1 % (37.0-47.0); Hemoglobin 7.1 g/dL (12.0-15.0); Immature Granulocyte Absolute 0.06 K/mm3 (0.00-0.031); Immature Granulocyte Percent A 0.7 % (0-0.5); Lymphocytes Absolute Auto 1.07 K/mm3 (0.9-3.2); Lymphocytes Percent Auto 12.9 % (18.3-44.2); Mean Corpuscular HGB Conc 30.7 g/dl (32-36); Mean Corpuscular Hemoglobin 26.5 pg (26-34); Mean Corpuscular Volume 86.2 fl (80-100); Monocytes Absolute Auto 0.5 K/mm3 (0.1-0.6); Monocytes Percent Auto 5.7 % (2.6-8.5); Neutrophils Absolute Auto 6.6 K/mm3 (1.3-6.7); Neutrophils Percent Auto 80.1 % (45.5-73.1); Platelet Count Result 445 k/mm3 (150-375); Red Blood Count 2.68 M/mm3 (4.2-5.4); Red Cell Distribution Width 15.2 % (11.5-14.5); White Blood Count 8.3 K/mm3 (4.5-10.0)
[2024-09-23 06:50] LABS: Anion Gap 12 mmol/L (4-12); Blood Urea Nitrogen 7 mg/dL (7-17); Calcium 8.3 mg/dL (8.4-10.2); Carbon Dioxide 23 mmol/L (22-30); Chloride 104 mmol/L (98-107); Estimated Glomerular Filt Rate > 60; Glucose 88 mg/dL (65-110); Potassium 3.7 mmol/L (3.4-5.0); Sodium 139 mmol/L (137-145)
[2024-09-23] MEDS: FERROUS SULFATE 325 MG TABLET DR PO ×2 (08:29→18:16)
[2024-09-23] MEDS: FAMOTIDINE 20 MG/2 ML VIAL IV PUSH (08:29)
[2024-09-23 10:27] VITALS: BP 113/60; PULSE 84; RESP 18; TEMP 36.4; O2SAT 100
[2024-09-23 11:07] VITALS: BMI 22.2
--- NOTE | 2024-09-23 14:14 | PM.PNGS ---
Progress Note: A&P Assessment and Plan (1) Left lower quadrant abdominal abscess: Code(s): K65.1 - Peritoneal abscess Status: Acute Assessment and Plan: Doing well after percutaneous drainage yesterday. Purulent fluid was noted initially but has been mostly serous last night and again today. So far cultures are showing only white blood cells, no bacteria on Gram stain. Continue to monitor drain output but hopefully can remove in a couple of days. (2) Dehydration: Code(s): E86.0 - Dehydration Status: Acute Assessment and Plan: Essentially resolved after IV fluids. Blood pressure better, tachycardia resolved. Will saline lock IVs and advance her diet. (3) Hypotension: Qualifiers: Hypotension type: hypotension due to hypovolemia Qualified Code(s): E86.1 - Hypovolemia Code(s): I95.9 - Hypotension, unspecified Status: Resolved (4) Colon cancer without distant metastasis: Code(s): C18.9 - Malignant neoplasm of colon, unspecified Status: Acute Assessment and Plan: Status post resection. Tumor is stage II B (5) History of colon resection: Code(s): Z90.49 - Acquired absence of other specified parts of digestive tract Status: Acute Assessment and Plan: Still some problems with abdominal incision but overall healing well. No evidence of anastomotic disruption or leak. Advance diet as discussed above. (6) Anemia: Qualifiers: Anemia type: other cause Other causes of anemia: chronic disease, other Qualified Code(s): D63.8 - Anemia in other chronic diseases classified elsewhere Code(s): D64.9 - Anemia, unspecified Status: Chronic Assessment and Plan: Low but stable. Continue nutritional supplements and iron Subjective Subjective Date/Time Seen: 09/23/24 14:14 Patient reports: feels better, pain is less, voiding w/o difficulty, bowel movement and afebrile Exam Const: General: cooperative, comfortable, no acute distress, alert, awake and thin; No anxious (Much less anxious) Orientation/consciousness: No confusion GI: Inspection: non-distended, incision (Healing well, small area purulent fluid below umbilicus), scaphoid and other (Serous with blood tinged fluid out pigtail catheter) GI Palp: Yes Soft to palpation and Yes Tenderness to palpation present (GI) (Left lower quadrant and lower abdomen, less than before) Auscultation: normal bowel sounds Objective Data Vital Signs Vital Signs: Vital Signs - 24 hr 09/22/24 15:22 09/22/24 14:15 09/22/24 14:20 Temperature 35.7 C L Pulse Rate 62 75 72 Respiratory Rate 18 12 10 L Blood Pressure 95/48 L 102/62 106/50 L Pulse Oximetry 100 100 100 Oxygen Delivery Room Air Nasal Cannula Oxygen Flow Rate 2 09/22/24 15:15 09/22/24 15:20 09/22/24 14:25 Temperature Pulse Rate 69 73 79 Respiratory Rate 14 15 10 L Blood Pressure 103/61 108/64 102/64 Pulse Oximetry 100 100 100 Oxygen Delivery Room Air Room Air Nasal Cannula Oxygen Flow Rate 2 09/22/24 14:30 09/22/24 14:35 09/22/24 14:40 Temperature Pulse Rate 86 79 81 Respiratory Rate 16 18 12 Blood Pressure 109/62 105/62 104/58 L Pulse Oximetry 99 100 100 Oxygen Delivery Nasal Cannula Nasal Cannula Nasal Cannula Oxygen Flow Rate 2 2 2 09/22/24 14:45 09/22/24 14:50 09/22/24 14:55 Temperature Pulse Rate 86 82 75 Respiratory Rate 12 12 13 Blood Pressure 105/72 102/60 93/58 L Pulse Oximetry 100 100 100 Oxygen Delivery Nasal Cannula Nasal Cannula Nasal Cannula Oxygen Flow Rate 2 2 2 09/22/24 15:00 09/22/24 15:05 09/22/24 15:10 Temperature Pulse Rate 73 77 71 Respiratory Rate 12 12 18 Blood Pressure 98/57 L 102/67 104/60 Pulse Oximetry 100 98 100 Oxygen Delivery Nasal Cannula Nasal Cannula Nasal Cannula Oxygen Flow Rate 2 2 2 09/22/24 15:25 09/22/24 16:31 09/22/24 19:59 Temperature 36.5 C 36.9 C Pulse Rate 70 67 90 Respiratory Rate 14 18 18 Blood Pressure 104/61 84/61 L 102/76 Pulse Oximetry 100 100 100 Oxygen Delivery Room Air Oxygen Flow Rate 09/23/24 00:25 09/23/24 04:02 09/23/24 08:00 Temperature 36.9 C 36.8 C Pulse Rate 102 H 85 Respiratory Rate 16 16 Blood Pressure 115/62 106/63 Pulse Oximetry 100 100 Oxygen Delivery Room Air Oxygen Flow Rate 09/23/24 10:27 Temperature 36.4 C Pulse Rate 84 Respiratory Rate 18 Blood Pressure 113/60 Pulse Oximetry 100 Oxygen Delivery Oxygen Flow Rate Intake/Output Intake/Output: Intake & Output 09/20/24 09/21/24 09/22/24 09/23/24 23:59 23:59 23:59 23:59 Intake Total 1500 1600 Output Total 200 900 Balance 1300 700 Meds/Results Medications: Active Medications Generic Name Dose Route Start Last Admin Trade Name Freq PRN Reason Stop Dose Admin Enoxaparin Sodium 30 mg 09/22/24 21:00 09/23/24 08:34 Enoxaparin 30 Mg/0.3 Ml Syringe SUB-Q Not Given Q12HR FIDELIA Famotidine 20 mg 09/22/24 13:00 09/23/24 08:29 Famotidine 20 Mg/2 Ml Vial IV PUSH 20 mg Q12HR FIDELIA Administration Ferrous Sulfate 325 mg 09/22/24 17:00 09/23/24 08:29 Ferrous Sulfate [address] PO 325 mg BID FIDELIA Administration Lactated Ringer's 1,000 mls @ 100 mls/hr 09/22/24 12:45 09/23/24 12:42 Lr - Lactated Ringers Iv IV CONT Not Given .Q10H FIDELIA Ibuprofen 800 mg in 200 mls @ 400 mls/hr 09/22/24 12:40 09/23/24 13:14 Caldolor 800 Mg/200 Ml IVPB 400 mls/hr Q6H PRN Administration Breakthrough Pain Rated 1-3 or NPO Ceftriaxone Sodium 1 gm in 50 mls @ 100 mls/hr 09/22/24 13:00 09/23/24 12:39 Rocephin 1 Gm/Ns 50 Ml IVPB 100 mls/hr Q24H FIDELIA Administration Metronidazole 500 mg in 100 mls @ 100 mls/hr 09/22/24 14:00 09/23/24 13:17 Flagyl 500 Mg/Iso Soln 100 Ml IVPB 100 mls/hr Q8H FIDELIA Administration Lorazepam 1 mg 09/22/24 12:50 Lorazepam Inj (*Crx) 2 Mg/Ml Vial IV PUSH Q6H PRN Anxiety Morphine Sulfate 2 mg 09/22/24 12:45 Morphine Sulfate (*Crx) 2 Mg/Ml Inj IV PUSH Q2H PRN Breakthrough Pain Rated 4-6 or NPO Morphine Sulfate 4 mg 09/22/24 12:45 09/22/24 16:23 Morphine Sulfate (*Crx) 4 Mg/Ml Inj IV PUSH 4 mg Q2H PRN Administration Breakthrough Pain Rated 7-10 or NPO Naloxone HCl 0.1 mg 09/22/24 12:40 Naloxone Hcl 0.4 Mg/Ml Vial IV PUSH Q2M PRN Opiate Reversal Prochlorperazine Edisylate 10 mg 09/22/24 15:52 09/22/24 16:23 Prochlorperazine Edisylate 10 Mg/2 Ml Vial IV PUSH 10 mg Q6H PRN Administration Nausea And Vomiting Trazodone HCl 50 mg 09/22/24 12:50 09/22/24 20:57 Trazodone Hcl 50 Mg Tablet PO 50 mg HS PRN Administration Insomnia Radiology Results: ITS Impressions Catheter Placement CT 09/22/24 15:40 IMPRESSION: 1. Successful CT-guided left lower quadrant abscess drainage catheter placement. 2. 8 mL fluid was sent for aerobic and anaerobic cultures. 3. The catheter will be managed by Dr. Lang. Labs Labs: Laboratory Results - last 24 hr 09/23/24 06:31 WBC 8.3 RBC 2.68 L Hgb 7.1 L Hct 23.1 L MCV 86.2 MCH 26.5 MCHC 30.7 L RDW 15.2 H Plt Count 445 H MPV 9.0 Immature Gran % (Auto) 0.7 H Neut % (Auto) 80.1 H Lymph % (Auto) 12.9 L Churchill % (Auto) 5.7 Eos % (Auto) 0.1 Baso % (Auto) 0.5 Lymph # (Auto) 1.07 [place] # (Auto) 0.5 Eos # (Auto) 0.0 Baso # (Auto) 0.0 Abs Immat Gran (auto) 0.06 H Absolute Neuts (auto) 6.6 Absolute Nucleated RBC 0.000 Nucleated RBC % 0.0 Sodium 139 Potassium 3.7 Chloride 104 Carbon Dioxide 23 Anion Gap 12 BUN 7 D Creatinine 0.50 L Estim Creat Clear Calc Not Reportable Estimated GFR > 60 Glucose 88 Calcium 8.3 L Imaging Attestation: I personally reviewed and interpreted this imaging study as follows: (CT scans of pigtail catheter placement) My impression: Catheter in great position Radiologist's impression:
[2024-09-23 14:27] VITALS: BP 110/68; PULSE 84; RESP 18; TEMP 36.8; O2SAT 100
[2024-09-23] MEDS: HYDROGEN PEROXIDE 3% SOLN(*SP) 473 ML BOTTLE 50 ML IRRIGATION (18:17)
[2024-09-23] MEDS: traMADol HCL (*CRX) 50 MG TABLET PO (18:17)
[2024-09-23 19:52] VITALS: BP 106/57; PULSE 70; RESP 16; TEMP 36.7; O2SAT 98
--- NOTE | 2024-09-23 20:29 | PC.NURSE ---
Call placed to exchange for clarification of FIDELIA lovenox and current hgb 7.1. Per water pollution control inspector provider, Dr. Aguilar, medication was ordered to be stopped after 09/23 FIDELIA 2100 time (2101) so medication should be given as ordered. Pt educated on blood thinner/anemia risks and risk for blood clots post-operatively, pt aggreeable to receive evening dose.
[2024-09-23] MEDS: FAMOTIDINE 20 MG TABLET PO (20:56)
[2024-09-23] MEDS: ENOXAPARIN 30 MG/0.3 ML SYRINGE SUB-Q (20:57)
[2024-09-24 04:16] VITALS: BP 111/71; PULSE 62; RESP 16; TEMP 36.4; O2SAT 98
[2024-09-24] MEDS: LACTATED RINGERS 1,000 ML 100 ML IV CONT (05:35)
[2024-09-24] MEDS: metroNIDAZOLE 500 MG/ISO 100ML 500 MG/100 ML BAG 100 MG IVPB ×3 (05:35→21:09)
[2024-09-24] MEDS: traMADol HCL (*CRX) 50 MG TABLET PO (07:04)
[2024-09-24 07:13] LABS: Basophils Percent Auto 0.4 % (0.2-1.2); Eosinophils Percent Auto 0.6 % (0-4.4); Immature Granulocyte Absolute 0.02 K/mm3 (0.00-0.031); Immature Granulocyte Percent A 0.4 % (0-0.5); Lymphocytes Absolute Auto 1.14 K/mm3 (0.9-3.2); Lymphocytes Percent Auto 24.4 % (18.3-44.2); Mean Corpuscular Hemoglobin 25.9 pg (26-34); Mean Corpuscular Volume 86.5 fl (80-100); Mean Platelet Volume 8.8 fl (7.4-10.4); Monocytes Absolute Auto 0.4 K/mm3 (0.1-0.6); Neutrophils Percent Auto 65.2 % (45.5-73.1); Platelet Count Result 373 k/mm3 (150-375); Red Blood Count 2.66 M/mm3 (4.2-5.4); Red Cell Distribution Width 15.2 % (11.5-14.5); White Blood Count 4.7 K/mm3 (4.5-10.0)
[2024-09-24 07:21] LABS: Hemoglobin 6.9 g/dL (12.0-15.0)
[2024-09-24 07:24] LABS: Anion Gap 8 mmol/L (4-12); Blood Urea Nitrogen 4 mg/dL (7-17); Calcium 8.2 mg/dL (8.4-10.2); Carbon Dioxide 26 mmol/L (22-30); Chloride 106 mmol/L (98-107); Estimated Glomerular Filt Rate > 60; Glucose 94 mg/dL (65-110); Potassium 3.5 mmol/L (3.4-5.0); Sodium 140 mmol/L (137-145)
[2024-09-24] MEDS: FERROUS SULFATE 325 MG TABLET DR PO ×2 (08:14→17:24)
[2024-09-24] MEDS: FAMOTIDINE 20 MG TABLET PO ×2 (08:14→21:09)
[2024-09-24] MEDS: PROCHLORPERAZINE EDISYLATE 10 MG/2 ML VIAL IV PUSH (08:19)
--- NOTE | 2024-09-24 11:20 | PM.PNGS ---
Progress Note: A&P Assessment and Plan (1) Left lower quadrant abdominal abscess: Code(s): K65.1 - Peritoneal abscess Status: Acute Assessment and Plan: Doing well after percutaneous drainage. Continue to monitor drain output, which is now all serous. Cultures are showing only white blood cells on Gram stain, no bacteria. Continue to monitor drain output but hopefully can be removed in the next few days. (2) Dehydration: Code(s): E86.0 - Dehydration Status: Acute Assessment and Plan: Tolerating oral intake, IV fluids stopped today. (3) Hypotension: Qualifiers: Hypotension type: hypotension due to hypovolemia Qualified Code(s): E86.1 - Hypovolemia Code(s): I95.9 - Hypotension, unspecified Status: Resolved Assessment and Plan: BP improved following IV hydration. BP stable this morning and no longer tachycardic. (4) Colon cancer without distant metastasis: Code(s): C18.9 - Malignant neoplasm of colon, unspecified Status: Acute Assessment and Plan: Status post resection. Tumor is stage II B (5) History of colon resection: Code(s): Z90.49 - Acquired absence of other specified parts of digestive tract Status: Acute Assessment and Plan: Still some problems with abdominal incision but overall healing well. (6) Anemia: Qualifiers: Anemia type: other cause Other causes of anemia: chronic disease, other Qualified Code(s): D63.8 - Anemia in other chronic diseases classified elsewhere Code(s): D64.9 - Anemia, unspecified Status: Chronic Assessment and Plan: Hgb remains low but has been stable. Hgb down slightly from 7.1 to 6.9 today. No signs of active bleeding. Fluids were still running this morning and she is tolerating good oral intake. This could be slightly dilutional. Continue iron supplements. Repeat labs tomorrow. Plan I have discussed the patient's case and plan of care with Dr. Lang. Subjective Subjective Date/Time Seen: 09/24/24 11:20 Patient reports: feels better, tolerating a regular diet, voiding w/o difficulty, flatus, bowel movement and afebrile Interval history: Patient reports feeling tired this morning. She didn't sleep well but reports it was just due to being in the hospital. Her abdominal pain continues to improve. Today, she is only complaining of mild pain at the top of her incision where the open wound is located. Denies pain at the LLQ perc drain. No output documented from the perc drain overnight, which appears serous again today. Hgb down from 7.1 to 6.9 this morning. She is still on IV fluids and drinking well. No blood in stools. Exam Const: General: comfortable and no acute distress Orientation/consciousness: patient oriented x3 GI: Inspection: non-distended GI Palp: Yes Soft to palpation, Yes Tenderness to palpation present (GI) (mild tenderness in the LLQ and near midline incision) and No Guarding due to palpation present (GI) Auscultation: normal bowel sounds Other: LLQ percutaneous drain with scant serous output Midline incision healing well with open wound at the top of the incision with pink tissue, no purulent drainage from this area. There is also a small opening to the incision just below the umbilicus with more serosanguineous drainage today, no purulent drainage from this area on my exam. No erythema. Objective Data Vital Signs Vital Signs: Vital Signs - 24 hr 09/23/24 14:27 09/23/24 19:52 09/24/24 04:16 Temperature 98.3 F 98.1 F 97.6 F Pulse Rate 84 70 62 Respiratory Rate 18 16 16 Blood Pressure 110/68 106/57 L 111/71 Pulse Oximetry 100 98 98 Oxygen Delivery 09/24/24 08:00 Temperature Pulse Rate Respiratory Rate Blood Pressure Pulse Oximetry Oxygen Delivery Room Air Intake/Output Intake/Output: Intake & Output 09/21/24 09/22/24 09/23/24 09/24/24 23:59 23:59 23:59 23:59 Intake Total 1500 4330 1150 Output Total 200 900 Balance 1300 3430 1150 Meds/Results Medications: Active Medications Generic Name Dose Route Start Last Admin Trade Name Freq PRN Reason Stop Dose Admin Acetaminophen 500 mg 09/23/24 14:30 Acetaminophen 500 Mg Tablet PO Q6H PRN Pain Rated 1-3 Enoxaparin Sodium 40 mg 09/24/24 09:00 09/24/24 11:15 Enoxaparin 40 Mg/0.4 Ml Syringe SUB-Q Not Given DAILY FIDELIA Famotidine 20 mg 09/23/24 21:00 09/24/24 08:14 Famotidine 20 Mg Tablet PO 20 mg Q12HR FIDELIA Administration Fentanyl Citrate 25 mcg 09/23/24 14:30 Fentanyl Citrate Inj (*Crx) 100 Mcg/2 Ml Vial IV PUSH Q2H PRN Breakthrough Pain Rated 4-6 or NPO Fentanyl Citrate 50 mcg 09/23/24 14:30 Fentanyl Citrate Inj (*Crx) 100 Mcg/2 Ml Vial IV PUSH Q2H PRN Breakthrough Pain Rated 7-10 or NPO Ferrous Sulfate 325 mg 09/22/24 17:00 09/24/24 08:14 Ferrous Sulfate [address] PO 325 mg BID FIDELIA Administration Ibuprofen 800 mg in 200 mls @ 400 mls/hr 09/22/24 12:40 09/23/24 13:44 Caldolor 800 Mg/200 Ml IVPB Infused Q6H PRN Infusion Breakthrough Pain Rated 1-3 or NPO Ceftriaxone Sodium 1 gm in 50 mls @ 100 mls/hr 09/22/24 13:00 09/23/24 13:09 Rocephin 1 Gm/Ns 50 Ml IVPB Infused Q24H FIDELIA Infusion Metronidazole 500 mg in 100 mls @ 100 mls/hr 09/22/24 14:00 09/24/24 05:35 Flagyl 500 Mg/Iso Soln 100 Ml IVPB 100 mls/hr Q8H FIDELIA Administration Lorazepam 1 mg 09/22/24 12:50 Lorazepam Inj (*Crx) 2 Mg/Ml Vial IV PUSH Q6H PRN Anxiety Naloxone HCl 0.1 mg 09/23/24 14:30 Naloxone Hcl 0.4 Mg/Ml Vial IV PUSH Q2M PRN Opiate Reversal Oxycodone/Acetaminophen 1 tablet 09/23/24 14:30 Oxycodone/Acetaminophen (*Crx) 5-325 Mg Tablet PO Q4H PRN Pain Rated 7-10 Prochlorperazine Edisylate 10 mg 09/22/24 15:52 09/24/24 08:19 Prochlorperazine Edisylate 10 Mg/2 Ml Vial IV PUSH 10 mg Q6H PRN Administration Nausea And Vomiting Tramadol HCl 50 mg 09/23/24 14:30 09/24/24 07:04 Tramadol Hcl (*Crx) 50 Mg Tablet PO 50 mg Q4H PRN Administration Pain Rated 4-6 Trazodone HCl 50 mg 09/22/24 12:50 09/22/24 20:57 Trazodone Hcl 50 Mg Tablet PO 50 mg HS PRN Administration Insomnia Radiology Results: ITS Impressions Catheter Placement CT 09/22/24 15:40 IMPRESSION: 1. Successful CT-guided left lower quadrant abscess drainage catheter placement. 2. 8 mL fluid was sent for aerobic and anaerobic cultures. 3. The catheter will be managed by Dr. Lang. Labs Labs: Laboratory Results - last 24 hr 09/24/24 07:03 WBC 4.7 RBC 2.66 L Hgb 6.9 L* Hct 23.0 L MCV 86.5 MCH 25.9 L MCHC 30.0 L RDW 15.2 H Plt Count 373 MPV 8.8 Immature Gran % (Auto) 0.4 Neut % (Auto) 65.2 Lymph % (Auto) 24.4 Shelby % (Auto) 9.0 H Eos % (Auto) 0.6 Baso % (Auto) 0.4 Lymph # (Auto) 1.14 Shelby # (Auto) 0.4 Eos # (Auto) 0.0 Baso # (Auto) 0.0 Abs Immat Gran (auto) 0.02 Absolute Neuts (auto) 3.0 Absolute Nucleated RBC 0.000 Nucleated RBC % 0.0 Sodium 140 Potassium 3.5 Chloride 106 Carbon Dioxide 26 Anion Gap 8 BUN 4 L Creatinine 0.50 L Estim Creat Clear Calc Not Reportable Estimated GFR > 60 Glucose 94 Calcium 8.2 L
[2024-09-24] MEDS: POTASSIUM CHLORIDE 20 MEQ ER TABLET 40 MEQ PO (12:19)
[2024-09-24] MEDS: BUMETANIDE INJ 2.5 MG/10 ML VIAL 2 MG IV PUSH (12:28)
[2024-09-24 15:22] VITALS: BP 103/67; PULSE 106; RESP 16; TEMP 36.8; O2SAT 98
[2024-09-24] MEDS: POTASSIUM CHLORIDE 20 MEQ ER TABLET PO (17:24)
[2024-09-24] MEDS: traZODone HCL 50 MG TABLET PO (21:09)
[2024-09-24 22:00] VITALS: BP 107/65; PULSE 104; RESP 20; TEMP 36.5; O2SAT 99
[2024-09-25 02:35] VITALS: BP 118/63; PULSE 86; RESP 20; TEMP 36.3; O2SAT 98
[2024-09-25] MEDS: traMADol HCL (*CRX) 50 MG TABLET PO ×3 (03:04→16:07)
[2024-09-25] MEDS: metroNIDAZOLE 500 MG/ISO 100ML 500 MG/100 ML BAG 100 MG IVPB ×2 (05:37→13:09)
[2024-09-25 06:00] VITALS: BP 102/44; PULSE 86; RESP 18; TEMP 36.4; O2SAT 97
[2024-09-25 06:36] LABS: Hematocrit 23.1 % (37.0-47.0); Hemoglobin 7.4 g/dL (12.0-15.0); Mean Corpuscular Hemoglobin 27.1 pg (26-34); Mean Corpuscular Volume 84.6 fl (80-100); Mean Platelet Volume 9.8 fl (7.4-10.4); Platelet Count Result 449 k/mm3 (150-375); Red Blood Count 2.73 M/mm3 (4.2-5.4); Red Cell Distribution Width 15.5 % (11.5-14.5); White Blood Count 6.1 K/mm3 (4.5-10.0)
[2024-09-25 06:48] LABS: Anion Gap 7 mmol/L (4-12); Blood Urea Nitrogen 8 mg/dL (7-17); Calcium 8.6 mg/dL (8.4-10.2); Carbon Dioxide 27 mmol/L (22-30); Chloride 102 mmol/L (98-107); Estimated Glomerular Filt Rate > 60; Glucose 130 mg/dL (65-110); Potassium 3.8 mmol/L (3.4-5.0); Sodium 136 mmol/L (137-145)
[2024-09-25] MEDS: POTASSIUM CHLORIDE 20 MEQ ER TABLET PO ×2 (08:22→16:07)
[2024-09-25] MEDS: FERROUS SULFATE 325 MG TABLET DR PO ×2 (08:22→16:07)
[2024-09-25] MEDS: FAMOTIDINE 20 MG TABLET PO (08:22)
--- NOTE | 2024-09-25 09:07 | PCNFU ---
Nutrition Follow-Up Complete: Moderate protein calorie malnutrition related to reduced appetite and intake due to altered GI function as evidenced by medical history, pt report of poor po intake for greater than 1 month, and a significant weight loss of -20% x 3 months, -11% x 1 month. PO intake 75% of meals and supplements - Slowly progressing. Diet is advanced to regular and intakes remain 10-25%. Continue with same goal Goal: Pt current nutrition is Regular diet with Ensure Enlive TID for additional 350 kcal and 20 g protein. Nutrition recommendation: No new nutrition recommendations. Continue with current nutrition care plan and orders. Last recorded weight is 46.6 kg. Bowel Motility: +1 BM 09/24/24 Labs Reviewed: Hgb 7.4, Hct 23.1, Na 136, Cre 0.5 Meds Noted: Compazine, pepcid Skin: No pressure injuries. Percutaneous drain placed for abdominal abscess Additional Notes: Progressing with intakes. Able to get drain placed. Continue to monitor Monitor intake, wt, labs. Follow up in 3 days.
--- NOTE | 2024-09-25 15:41 | P.DS_ITS ---
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 History of colon resection Hypotension Dehydration Anemia DS: Discharge Diagnosis Discharge Diagnosis (1) Left lower quadrant abdominal abscess: Code(s): K65.1 - Peritoneal abscess Status: Acute (2) Colon cancer without distant metastasis: Code(s): C18.9 - Malignant neoplasm of colon, unspecified Status: Acute (3) History of colon resection: Code(s): Z90.49 - Acquired absence of other specified parts of digestive tract Status: Acute (4) Dehydration: Code(s): E86.0 - Dehydration Status: Acute Assessment and Plan: Hydrated with IV fluids which were eventually discontinued once patient was tolerating oral intake. (5) Hypotension: Qualifiers: Hypotension type: hypotension due to hypovolemia Qualified Code(s): E86.1 - Hypovolemia Code(s): I95.9 - Hypotension, unspecified Status: Resolved Assessment and Plan: Improved with IV fluid hydration. Blood pressure stable prior to discharge. DS: Summary Hospital Course Reason for hospitalization: Patient is a 33-year-old woman who 1st presented to [facility] with abdominal pain and CT scan evidence of diverticulitis with 2 small abscesses. She had already been treated at [facility] on a couple of different admissions for this but was still having problems when she came to our emergency room in mid July. She was treated with IV antibiotics and then discharged. She did well at home for a while but then had increasing pain. When she came back to the emergency room, she was found to have a 5 cm abscess, larger than before, as well as signs of i nfection and sepsis. She was admitted again and a CT-guided percutaneous pigtail catheter was placed in the abscess. This drained purulent fluid and we were expecting the patient to heal following this with plans for outpatient resection of diverticulitis. Unfortunately, she did not do well at home and came back in now draining fecal material from the pigtail catheter. The pigtail catheter was exchanged for a larger catheter but, although this improved things for a few days, eventually stool started draining out around the pigtail catheter. She was taken for open surgery on 09/12 2024 and sigmoidectomy was performed by Dr. Lang. By this time the patient had a perforated sigmoid with colocutaneous fistula. The perforated area was adherent to the left lower quadrant abdominal wall. There was a left lower quadrant abscess associated with this in the abdominal wall. The sigmoidectomy including the area of perforation was performed. Pathology on this did not show diverticulitis but instead showed stage 2 B adenocarcinoma. The surrounding omentum was biopsied and excised and showed no tumor. The peritoneum around the colocutaneous fistula was also excised and showed no evidence of malignancy. Patient did have hand-sewn colonic anastomosis. She was improving and plans were being made for discharge when and Sunday last week her white blood cell count started to rise. On Sunday it was up to 16,[address] scan of the abdomen and pelvis was done. This showed a left lower quadrant abscess. Plans were made for percutaneous drainage but, the patient had been through so much already, especially with having been found to have cancer only a few days before, that she wanted to have deep sedation for the procedure. This was technically arranged but then fact that the patient had eaten full breakfast that morning made the procedure too risky. She refused to have the procedure done under light sedation. She also very much wanted to be discharged. She was discharged home on oral antibiotics with scheduled follow-up with Dr. Lang the following Sunday. She returns for the follow-up appointment with more abdominal pain, generalized weakness, nausea, vomiting and found to have hypotension. She was then directly admitted for percutaneous drainage in fluid resuscitation with pain control. Hospital Course: She was treated with IV antibiotics. The patient had CT-guided drainage of left lower quadrant abscess in Radiology on 09/22/2024. She tolerated the procedure well with sedation. She was found to be dehydrated and hypotensive. Blood pressure improved with IV fluid hydration. Her diet was advanced as tolerated. White blood cell count has been normal since 09/22/2024. Her differential has been improving. She remains anemic during this hospitalization and was continued on her iron supplements. Her hemoglobin did drop slightly to 6.9 from 7.1. She was diuresed and her hemoglobin went back up to 7.4. No signs of active bleeding. Overall, her abdominal pain has improved significantly following percutaneous drainage. She was able to transition to oral analgesics with good pain control. Her percutaneous drain was monitored with no output over the last 48 hours and was removed at the bedside today. Cultures show no growth of any organisms to date. Gram stain showed many white blood cells, but no organisms seen. Her abdominal wound has been treated with silver gel dressing changes. She did have a small area below the umbilicus that started having purulence drainage and was opened by Dr. Lang. We are now applying silver gel to this area as well. Her left lower quadrant wound has nearly completely closed with only about a 0.5 cm open area. Labs remained stable today and she is tolerating an oral diet. She was started on potassium for mild hypokalemia. After discussing her case with Dr. Lang, she is stable for discharge today. She will continue the antibiotics prescribed from her last hospitalization once discharged. She was educated on the use of opioids and how to minimize narcotic use. We will have the patient follow up with Dr. Lang in 1 week. Status at Discharge Functional status at discharge: independent ambulation Overall status at discharge: patient is progressing back to baseline Time Spent with Patient Time attestation: Total time spent providing and/or coordinating discharge services: Time spent: Greater than 30 minutes Exam Const: General: comfortable, no acute distress and awake Resp: Effort & Inspection: normal respiratory effort Auscultation: clear to auscultation bilaterally Cardio: Rate: regular rate Rhythm: regular rhythm GI: Inspection: non-distended GI Palp: Yes Soft to palpation, Yes Tenderness to palpation present (GI) (very minimal tenderness near midline wound, much improved), No Guarding due to palpation present (GI) and No Rebound tenderness present Auscultation: normal bowel sounds Other: LLQ percutaneous drain with no output. Suture and drain removed today and gauze dressing applied. Midline incision healing well with open wound at the top of the incision with pink tissue, no purulent drainage from this area. There is also a small opening to the incision just below the umbilicus with more serosanguineous drainage today, no purulent drainage from this area on my exam. No erythema. Extrem: General: edema DS: Data Data Completed and Pending Labs on day of discharge: Labs from last 24 hours 09/25/24 05:36 WBC 6.1 RBC 2.73 L Hgb 7.4 L Hct 23.1 L MCV 84.6 MCH 27.1 MCHC 32.0 RDW 15.5 H Plt Count 449 H MPV 9.8 Sodium 136 L Potassium 3.8 Chloride 102 Carbon Dioxide 27 Anion Gap 7 BUN 8 Creatinine 0.50 L Estim Creat Clear Calc Not Reportable Estimated GFR > 60 Glucose 130 H Calcium 8.6 Preliminary micro results at discharge 09/22/24 15:25 Anaerobic Culture - Preliminary Abscess Imaging Radiologist's impression: ITS Impressions Catheter Placement CT 09/22/24 15:40 IMPRESSION: 1. Successful CT-guided left lower quadrant abscess drainage catheter placement. 2. 8 mL fluid was sent for aerobic and anaerobic cultures. 3. The catheter will be managed by Dr. Lang. Discharge Plan Discharge Attending physician on discharge: Aguilar Lang Discharging Clinician: Barbie Smith Anticipated Discharge Date/Time: 09/25/24 15:42 Patient Disposition: Home, Self-Care Activity: may shower, no driving and other - see discharge instructions Diet: as tolerated and regular Wound Care Instructions: other - see discharge instructions Discharge Instructions: * Follow-up with Dr. Lang next , 10/02/24. I have asked the office to schedule you an appointment and they should call you with a time. Call sooner with any questions. [phone] * Drain site - you may apply a gauze dressing once daily and cover with tape. Do this for a few days and may leave open to air if it is dry with no drainage. * Left lower quadrant wound - cover this wound with gauze dressing or just a dry, clean bandage (bandaid). Wash over wound with mild soap and water daily. * Midline incision/wound - use a Q-tip to gently probe the small open wound on the lower part of the incision below the umbilicus, then apply silver gel to both open wounds and cover with gauze and an ABD pad. * Finish antibiotics prescribed from your last discharge. * No heavy lifting more than 10-15 lbs. * Walk at least three times daily. * You have been sent multiple medications to the pharmacy to help with pain control. Percocet (oxycodone) should only be taken as prescribed and only as needed for severe pain. You can take the Tramadol and ketorolac as needed for moderate and mild pain as needed, as prescribed. Try to minimize narcotic use with the stronger pain medication. * You were prescribed potassium supplements to take for the next 10 days. Take daily and take with food. * Continue taking the iron supplement you were prescribed on your last discharge as well. Patient Instructions: Antibiotic Form, Oxycodone/Acetaminophen (By mouth), Ketorolac (By mouth), Tramadol (By mouth), Naloxone (Into the nose) Stand Alone Forms: General Discharge Information Follow-up/Referrals: Aguilar Lang MD [Physician] - 1 Week Discharge Medications: New oxycodone-acetaminophen 5-325 mg Tablet 0.5 tablet PO Q6H PRN (Reason: Pain Rated 7-10) Qty: 10 0RF tramadol 50 mg Tablet 50 mg PO Q4-6H PRN (Reason: Pain Rated 4-6) Qty: 10 0RF ketorolac 10 mg tablet 10 mg PO Q6H PRN (Reason: pain) 5 Days Qty: 20 0RF Rx Instructions: maximum total duration of 5 days from all oral, intranasal, or parenteral formulations naloxone [Narcan] 4 mg/actuation spray,non-aerosol 4 mg intranasal Q2-3M PRN (Reason: opioid overdose) Qty: 2 0RF Rx Instructions: spray 1 dose into ONE nostril; alternate nostrils w each dose until help arrives potassium chloride [K-Tab] 20 mEq Tablet Extended Release 20 meq PO DAILY 10 Days Qty: 10 0RF Continued metronidazole 500 mg Tablet 500 mg PO Q8HR Qty: 21 0RF ciprofloxacin HCl 500 mg Tablet 500 mg PO Q12HR Qty: 14 0RF ferrous sulfate 325 mg (65 mg iron) Tablet,Delayed Release (Dr/Ec) 325 mg PO BID Qty: 60 2RF prochlorperazine [Compro] 25 mg suppository 25 mg RECTAL Q8H PRN (Reason: nausea and vomiting) Qty: 6 0RF oxycodone-acetaminophen [Percocet] 5-325 mg tablet 1 - 2 tablet PO Q6H PRN (Reason: pain) Qty: 20 0RF Date of admission: 09/23/24 11:24 Primary Care Provider: UNKNOWN,DOCTOR Admitting Provider: Aguilar Lang Attending physician on admission: Aguilar Lang Condition: Improved Quality VTE Prophylaxis VTE prophylaxis: mechanical ordered and pharmacologic ordered
== END 2024-09-25 17:15 | disposition home or self-care (01) | DRG 248 ==
PROVIDERS: Radiology Diagnostic Radiology; Admitting Provider Surgery; Visit Provider Nurse Practitioner Family
PROC: 0W9H30Z Drainage of Retroperitoneum with Drainage Device, Percutaneous Approach (ICD-10-PCS; principal; 2024-09-22 14:00)
DX: K65.1 Peritoneal abscess (principal); C18.7 Malignant neoplasm of sigmoid colon; I95.9 Hypotension, unspecified; D63.0 Anemia in neoplastic disease; E87.6 Hypokalemia; E86.0 Dehydration; F17.290 Nicotine dependence, other tobacco product, uncomplicated; K63.2 Fistula of intestine; Z28.21 Immunization not carried out because of patient refusal; Z90.49 Acquired absence of other specified parts of digestive tract
CPT/HCPCS: 36415; 75989; 80048; 80053; 85025; 85027; 85610; 85730; 87070; 87075; 87205; A9270; C1729; C1769; G0378; G0379; J0696; J0780; J1650; J1741; J1836; J1939; J2250; J2270; J3010; J7030; J7040; J7120; Q9967

== ENCOUNTER 2024-10-10 13:14 | Outpatient (CLI) | payer OTHER, SELFPAY ==
[2024-10-10 13:33] LABS: Basophils Percent Auto 0.7 % (0.2-1.2); Eosinophils Absolute Auto 0.1 K/mm3 (0-0.3); Hematocrit 32.2 % (37.0-47.0); Hemoglobin 9.8 g/dL (12.0-15.0); Immature Granulocyte Absolute 0.01 K/mm3 (0.00-0.031); Immature Granulocyte Percent A 0.2 % (0-0.5); Lymphocytes Percent Auto 34.4 % (18.3-44.2); Mean Corpuscular HGB Conc 30.4 g/dl (32-36); Mean Corpuscular Hemoglobin 26.8 pg (26-34); Mean Corpuscular Volume 88.2 fl (80-100); Mean Platelet Volume 10.2 fl (7.4-10.4); Monocytes Absolute Auto 0.3 K/mm3 (0.1-0.6); Monocytes Percent Auto 7.4 % (2.6-8.5); Neutrophils Absolute Auto 2.3 K/mm3 (1.3-6.7); Neutrophils Percent Auto 55.3 % (45.5-73.1); Platelet Count Result 375 k/mm3 (150-375); Red Blood Count 3.65 M/mm3 (4.2-5.4); Red Cell Distribution Width 15.7 % (11.5-14.5); White Blood Count 4.1 K/mm3 (4.5-10.0)
[2024-10-10 13:47] LABS: Anion Gap 10 mmol/L (4-12); Blood Urea Nitrogen 15 mg/dL (7-17); Calcium 9.6 mg/dL (8.4-10.2); Carbon Dioxide 29 mmol/L (22-30); Chloride 101 mmol/L (98-107); Estimated Glomerular Filt Rate > 60; Glucose 74 mg/dL (65-110); Potassium 4.1 mmol/L (3.4-5.0); Sodium 140 mmol/L (137-145)
== END 2024-10-10 13:15 | disposition home or self-care (01) ==
LOC: ANHLAB 13:15
PROVIDERS: Visit Provider Surgery
DX: D63.8 Anemia in other chronic diseases classified elsewhere (principal)
CPT/HCPCS: 36415; 80048; 85025

== ENCOUNTER 2024-11-10 12:02 | Outpatient (CLI) | payer OTHER, SELFPAY ==
[2024-11-10 12:24] LABS: Basophils Percent Auto 0.4 % (0.2-1.2); Eosinophils Percent Auto 1.2 % (0-4.4); Immature Granulocyte Absolute 0.01 K/mm3 (0.00-0.031); Immature Granulocyte Percent A 0.4 % (0-0.5); Lymphocytes Absolute Auto 0.92 K/mm3 (0.9-3.2); Lymphocytes Percent Auto 37.4 % (18.3-44.2); Mean Corpuscular HGB Conc 30.6 g/dl (32-36); Mean Corpuscular Hemoglobin 26.2 pg (26-34); Mean Corpuscular Volume 85.7 fl (80-100); Mean Platelet Volume 10.6 fl (7.4-10.4); Monocytes Absolute Auto 0.3 K/mm3 (0.1-0.6); Monocytes Percent Auto 11.8 % (2.6-8.5); Neutrophils Absolute Auto 1.2 K/mm3 (1.3-6.7); Neutrophils Percent Auto 48.8 % (45.5-73.1); Platelet Count Result 253 k/mm3 (150-375); Red Cell Distribution Width 14.3 % (11.5-14.5); White Blood Count 2.5 K/mm3 (4.5-10.0)
[2024-11-10 13:50] LABS: Alanine Aminotransferase 11 U/L (6-35); Albumin Level 4.6 g/dL (3.5-5.1); Alkaline Phosphatase 74 U/L (38-126); Anion Gap 8 mmol/L (4-12); Aspartate Amino Transferase 21 U/L (14-36); Bilirubin,Total 0.6 mg/dL (0.2-1.3); Blood Urea Nitrogen 12 mg/dL (7-17); Calcium 9.4 mg/dL (8.4-10.2); Carbon Dioxide 24 mmol/L (22-30); Chloride 106 mmol/L (98-107); Estimated Glomerular Filt Rate > 60; Glucose 92 mg/dL (65-110); Potassium 3.8 mmol/L (3.4-5.0); Sodium 138 mmol/L (137-145)
[2024-11-10 14:08] LABS: Iron 89 ug/dL (37-170)
[2024-11-10 14:18] LABS: Percent Iron Saturation 17 % (20-50)
[2024-11-10 14:20] LABS: Carcinoembryonic Antigen 1.2 ng/mL (0.0-3.0)
== END 2024-11-10 12:03 | disposition home or self-care (01) ==
LOC: ANHLAB 12:06
PROVIDERS: Visit Provider Internal Medicine Hematology & Oncology
DX: C18.9 Malignant neoplasm of colon, unspecified (principal); D64.9 Anemia, unspecified
CPT/HCPCS: 36415; 80053; 82378; 82607; 82728; 83540; 83550; 85025

== ENCOUNTER 2024-12-18 00:55 | Day surgery (SDC) | payer OTHER, SELFPAY ==
[2024-11-13 14:00] VITALS: BMI 19.4
--- NOTE | 2024-11-13 14:01 | PC.NURSE ---
Report to the Outpatient Waiting Room, entrance under the green pavilion located off [facility], at time _1pm_ on date _[id number]_. Planned Procedure Time: _3pm_.? Time changes happen often and if your time is changed the preop area will call you the afternoon before. - You and your visitor will be asked to self-screen and do not enter if you have any COVID symptoms. Please call surgeon if you need to reschedule. - A mask is optional within the hospital at this time. Patients may have clear liquids (water, carbonated beverages, clear teas, apple juice) until 3 hours prior to surgery with a maximum of 20 ounces. - No food from midnight until time of surgery and no smoking. This includes no chewing gum, candy or mints. Take only the following medications with a SIP of water on the morning of surgery: ___None DO NOT STOP ANY OF YOUR OTHER PRESCRIPTION MEDICATIONS PRIOR TO SURGERY EXCEPT THE FOLLOWING Medications to discontinue per physician __None____ Please no make-up, nail liberian, hairspray, perfume, deodorant, or body powder the day of surgery.? No jewelry (including any body piercings) or valuables the day of surgery, leave them at home.? Please take a shower or bath the night before, or the morning of, surgery with an antibacterial soap.? Wear comfortable, loose fitting clothing.? - Jewelry must be removed prior to entering the operating room.? Rings and piercings that are not removed may be cut off. - The hospital will not accept responsibility for valuables.? - Please leave all valuables, including medications, at home the day of surgery. If you are going home after surgery, a licensed driver guide must drive you home.? - NO public transportation without another adult if you receive anesthesia. - We recommend that an adult stay with you for 24 hours following discharge. - We also recommend that you do not drive, make important decision, drink alcoholic beverages, or take any drugs that were not prescribed by your health care provider for at least 24 hours after your discharge time. Follow any additional instructions given to you from your surgeon. Telephone instructions given to _Libby_and asked if any additional questions and then verbalized understanding. Patient advised to call surgeon office or pre surgery nurse liaison [phone] if any additional questions.
--- NOTE | 2024-11-25 09:33 | PM.SD2 ---
Same Day Admit/Disch: HPI History of Present Illness Chief complaint: Needs Port-A-Cath Narrative: Libby Maldonado is a 34 year old female who had a resection of sigmoid colon cancer in August. 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 She has gone on to heal from her surgery and is planned to have FOLFOX chemotherapy per Dr. Korin olson. She is taken to surgery at this time for placement of a Port-A-Cath. [facility] Past Medical History Medical History Hypotension Fecal peritonitis Colocutaneous fistula Diverticulitis of large intestine with abscess Anxiety Asthma in childhood, resolved Surgical History Surgical History History of colon resection 09/08/2024 - Sigmoid colon resection with hand-sewn end-to-end anastomosis, drainage abdominal wall abscess H/O gynecological procedure Mirena IUD insertion Family History Family History Mother Diverticulitis Father Heart problem Social History Social History Years smoked: 15 Smoking status: Current every day smoker Tobacco type: cigarettes Second hand tobacco smoke exposure: Yes Alcohol intake: current Drinks per week: 4 Substance use: current Substance use type: marijuana Other substance usage details: Daily Current Housing: Decline to Answer Concerned About Future Housing: Decline to Answer Difficulty Paying Gas/Electric Bills: Decline to Answer Difficulty Paying for Meds: Decline to Answer Currently Unemployed: Decline to Answer Education: Decline to Answer Difficulty w/ Childcare or Family Care: Decline to Answer Living arrangements: with family Occupation/Education: occupation Gender identity (if verbalized by the patient): Female Spiritual care concerns: No Same Day Admit/Disch: Med Pre-admit Medications Home Medications ?Medication ?Instructions ?Recorded ?Confirmed ?Type ferrous sulfate 325 mg (65 mg 325 mg PO BID #60 tabs 09/19/24 11/13/24 Rx iron) tablet,delayed release Review of Systems Review of Systems All systems reviewed & are unremarkable except as noted in HPI and below (HPI) Exam Const: General: comfortable, no acute distress, alert and awake HENMT: Head: normocephalic and atraumatic Mouth: Yes Normal oral and palatal mucosa present Eyes: Conjunctivae: conjunctivae normal Pupils: Equal, round and reactive pupils present EOM: EOMs intact bilaterally Neck: Neck: normal visual inspection, no lymphadenopathy and nontender Resp: Effort & Inspection: normal respiratory effort Auscultation: clear to auscultation bilaterally Cardio: Rate: regular rate Rhythm: regular rhythm Heart sounds: no gallops, no murmurs and no rubs GI: Inspection: non-distended, scar (Midline abdominal, from surgery 3 months ago) and no visible herniation GI Palp: Yes Soft to palpation, No Tenderness to palpation present (GI), No Hepatomegaly present, No Splenomegaly present, No Hernia present and No Palpable mass present Skin: Lesions: no lesions Rashes: no rashes Neuro: General: no focal motor deficits and CN's II-XI intact bilaterally Cranial nerves: Yes Equal, round and reactive pupils present, Yes Bilaterally intact EOM present, Yes facial symmetry and Yes Midline tongue present Speech: normal speech Motor exam (neuro): 5/5 motor strength present throughout and Motor abnormalities not present Extrem: General: no clubbing, cyanosis or edema and edema Psych: Affect: normal affect Thought process: Normal thought process present Insight: Good insight present (Psych) DS: Summary Time Spent with Patient Time attestation: Total time spent providing and/or coordinating discharge services: DS: Admitting Diagnosis Discharge Date November 27, 2023 Admitting Diagnosis Stage II B perforated 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 Inadequate venous access for chemotherapy-plan to proceed with placement of Port-A-Cath under fluoroscopy and using ultrasound as an outpatient. Procedure, risks, benefits and alternatives have been discussed. All questions were answered. She understands and agrees to go ahead. Smoker Anemia Discharge Plan Discharge Patient Disposition: Home, Self-Care Patient Language: Upper Sorbian Stand Alone Forms: General Discharge Instructions Discharge Medications: No Action ferrous sulfate 325 mg (65 mg iron) Tablet,Delayed Release (Dr/Ec) 325 mg PO BID Qty: 60 2RF Other Ambulatory Orders: Prothrombin Time INR (Routine) Timeframe: 20241113 Location: Determined by Patient Ordered By: Aguilar Lang Partial Thromboplastin Time (Routine) Timeframe: 20241113 Location: Determined by Patient Ordered By: Aguilar Lang
--- OUTSIDE RECORDS SUMMARY | 2024-12-03 22:59 | XMS_ITS | Continuity of Care Document ---
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 Other Provider MD Sanjiv Burns Emergency Provider + MD Todd Coto Other Provider MD Andres Gillis Other Provider MD Steve Staples Other Provider MD Aguilar Lang Admit Provider Care Teams Patient Care Team Team Status: Active Member Role Status Dates DOCTOR UNKNOWN Primary Care Provider Active Visit Care Team Team Status: Inactive Member Role Status Dates Aguilar Lang MD Attending Provider, Referring Pro vider Active Visit Care Team Team Status: Inactive Member Role Status Dates Aguilar Lang MD Attending Provider, Referring Pro vider Active Visit Care Team Team Status: Inactive Member Role Status Dates Aguilar Lang MD Attending Provider Active NONSTAFF PHYSICIAN NOT ON STAFF Primary Care Provid er Active Visit Care Team Team Status: Inactive Member Role Status Dates Sanjiv Burns MD Emergency Provider Active DOCTOR UNKNOWN Primary Care Provider Active Elham Vences MD Admit Provider Active Aguilar Lang MD Attending Provider Active Marco A Alvarado MD Other Provider Active Todd Coto MD Other Provider Active Andres Gillis MD Other Provider Active Ranjeet Butcher MD Other Provider Active NAVIN Contreras Other Provider Active Steve Staples MD Other Provider Active Visit Care Team Team Status: Inactive Member Role Status Dates DOCTOR UNKNOWN Primary Care Provider Active Aguilar Lang MD Admit Provider, Attending Provide r Active Visit Care Team Team Status: Inactive Member Role Status Dates Mariama Arias MD Emergency Provider Active DOCTOR UNKNOWN Primary Care Provider Active Aguilar Lang MD Other Provider Active Teodoro Dye MD Admit Provider Active Alysia Eric APRN Attending Provider Active NAVIN Contreras Other Provider Active Abigail Brizuela APRN Other Provider Active Marco A Alvarado MD Other Provider Active Nancy Henderson PA-C Other Provider Active Juancalros Aguilar DO Other Provider Active Visit Care Team Team Status: Inactive Member Role Status Dates NONSTAFF PHYSICIAN NOT ON STAFF Primary Care Provid er Active Aguilar Lang MD Other Provider Active Elham Vences MD Admit Provider, Attending Provide r Active Ranjeet Butcher MD Other Provider Active SAROJ ContrerasP Other Provider Active Chief Complaint and Reason for Visit Chief Complaint Perforated Diverticu litis Diverticulitis Diverticulitis Diverticulitis w/abscess Diverticulitis w Colocutaneous Fistula Surgical Post Op Left lower quad abscess Reason for Visit Constipation Constipation Dyschezia Anemia Abdominal wall abscess 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 Colon perforation Anemia Dehydration Encounter for surgical aftercare following surgery on the digestive system History of colon resection Left lower quadrant abdominal abscess Hypotension 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 Yes O ctober 2023 12:43pm Has Lack of Trans Kept You F rom Med Appts or Getting Meds? No September 22, 2024 12:43pm In Past 12 Months, Were You Worried Your Food Would Run Out? Never True September 22, 2024 12 :43pm What is Your Housing Situati on Today? I Have Housing September 22, 2024 12:43pm Gender Identity (if Verbaliz ed by the Patient) Female January 17, 2024 2:40pm Are You Worried That in Next 2 Mo, You Won't Have Housing? No September 22, 2024 12:43pm Do You Have Trouble Paying Y our Heating Or Electricity Bill? Yes September 22, 2024 12:43p m Do You Have Trouble Paying F or Medicines? No September 22, 2024 12:43pm Are You Currently Unemployed and Looking for Work? Yes September 22, 2024 12:43pm Highest Level of Education Completed High School Diploma/GED September 22, 2024 12:43pm Do You Have Trouble With Childcare/Care of a Family Member? No September 22, 2024 12:43pm alcohol intake never September 22 12:43pm Substance use type marijuana September 22, 2024 12:43pm Additional Data Assigned Sex Female Family History Relationship Condition Age at Onset Recorded Date/T gil mother Diverticulitis Unknown father Heart problem Unknown Problems Active Problems Medical Problem Onset Date Status Colocutaneous fistula Active Abdominal wall abscess Active History of colon resection Activ e Encounter for surgical after care following surgery on the digestive system Active Anemia Active Colon cancer without distant metastasis Active Leukocytosis Active Dyschezia Active Left lower quadrant abdominal abscess Active Colon perforation Active Constipation Active Dehydration Active Inactive/Resolved Problems Medical Problem Onset Date Status UTI (urinary tract infection) Re solved Diverticulitis of intestine with perforation Resolved Fecal peritonitis Resolved LLQ abdominal mass Resolved Hypotension Resolved Diverticulitis of large intestine with abscess Resolved Medications Medication Status Dose Units Route Directions Qty Days St art Date End Date Instructions Metronidazole Active 500 MG PO EVERY 8 HOURS September 19, 2024 12:00am Ciprofloxacin Hcl Active 500 MG PO EVERY 12 HOURS September 19, 2024 12:00am Ferrous Sulfate Active 325 MG PO TWICE A DAY 60 September 19, 2024 12:00am Prochlorperaz ine (Compro) 25 mg suppository Active 25 MG RECTAL Q8H September 19, 2024 12:00am Oxycodone-Robel taminophen (Percocet) 5-325 mg tablet Active 1 - 2 TABLET PO Q6H September 19, 2024 Oxycodone-Robel taminophen Active 0.5 TABLET PO Q6H September 25, 2024 Tramadol Active 50 MG PO EVERY 4 - 6 HOURS September 25, 2024 12:00am Ketorolac Active 10 MG PO Q6H 20 September 25, 2024 12:00am maximum total duration of 5 days from all oral, intranasal, or parenteral formulations Naloxone (Narcan) 4 mg/actuation spray,non-aer osol Active 4 MG NASAL every 2 to 3 minutes September 25, 2024 12:00am spray 1 dose into ONE nostril; alternate nostrils w each dose until help arrives Potassium Chloride (K-Tab) 20 mEq Tablet Extended Release Active 20 MEQ PO DAILY 10 September 25, 2024 12:00am Immunizations Immunization Event Date Not Given Reason Dose Number 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 Lot Number Vaccine Information Statement (VIS) Detail Haemoph B Poly Conj-Tet Tox January 12, 1992 Haemoph B Poly Conj-Tet Tox March 23, 1992 Haemoph B Poly Conj-Tet Tox June 01, 1992 Haemoph B Poly Conj-Tet Tox December 24, 1995 DTaP January 12, 1992 DTaP March 23, 1992 DTaP June 01, 1992 DTaP December 24, 1995 DTaP July 14, 1996 Diphtheria, Tetanus toxoids and Pertussis January 12, 1992 Diphtheria, Tetanus toxoids and Pertussis March 23, 1992 Diphtheria, Tetanus toxoids and Pertussis June 01, 1992 Diphtheria, Tetanus toxoids and Pertussis December 24, 1995 Diphtheria, Tetanus toxoids and Pertussis July 14, 1996 Hepatitis B Vaccine, Adol/Ped Dosage February 22, 1996 Hepatitis B Vaccine, Adol/Ped Dosage March 26, 1996 Hepatitis B Vaccine, Adol/Ped Dosage August 25, 1996 Inactivated Poliovirus Vaccine January 12, 1992 Inactivated Poliovirus Vaccine March 23, 1992 Inactivated Poliovirus Vaccine December 24, 1995 Inactivated Poliovirus Vaccine August 25, 1996 Measles, Mumps, and Rubella Virus Vaccine December 24, 1995 Measles, Mumps, and Rubella Virus Vaccine February 22, 1996 Trivalent Polio Vaccine, live, oral January 12, 1992 Trivalent Polio Vaccine, live, oral March 23, 1992 Trivalent Polio Vaccine, live, oral December 24, 1995 Trivalent Polio Vaccine, live, oral August 25, 1996 RHO D,IG July 26, 2018 Tetanus, Diphtheria (Td) May 09, 2002 Td (adult), 2 Lf tetanus toxoid, PF May 09, 2002 Procedures Procedure Date Performed Status Blood Culture September 08, 2024 completed Comp Tomography Guide Abscess Cath Place September 08, 2024 11:00am completed Left Sigmoid Colon Resection (Not Applicable) Oc tober 2023 9:00am completed Anaerobic Culture September 22, 2024 active Aerobic Culture September 22, 2024 completed Radiology Procedure Mod.Sed.Rn September 22 2:00pm completed Blood Culture August 07, 2024 completed Urine Culture August 07, 2024 completed Blood Culture September 02, 2024 completed Comp Tomography Guide Abscess Cath Place September 02, 2024 8:30am completed Relevant Diagnostic Tests and/or Laboratory Data Laboratory Results Test Date/Time Result Interpretation Reference Range Result Comment Performing Site White Blood Count August 13, 2024 6:17am 5.5 K/mm3 4.5-10.0 [facility] [id number] [address] [facility] [address] [place] [address] White Blood Count September 01, 2024 12:20pm 6.7 K/mm3 4.5-10.0 [facility] [id number] [address] [facility] [address] [place] [address] White Blood Count September 05, 2024 6:39am 10.3 K/mm3 Above high normal 4.5-10.0 [facility] [id number] [facility] [address] [address] White Blood Count September 19, 2024 7:00am 16.0 K/mm3 Above high normal 4.5-10.0 [facility] [id number] [address] [address] White Blood Count September 25, 2024 5:36am 6.1 K/mm3 4.5-10.0 [facility] [id number] [address] [address] Red Blood Count August 13, 2024 6:17am 3.22 M/mm3 Below low normal 4.2-5.4 [facility] [id number] [address] [address] Red Blood Count September 01, 2024 12:20pm 3.71 M/mm3 Below low normal 4.2-5.4 [facility] [id number] [address] [address] Red Blood Count September 05, 2024 6:39am 3.03 M/mm3 Below low normal 4.2-5.4 [facility] [id number] [address] [address] Red Blood Count September 19, 2024 7:00am 3.12 M/mm3 Below low normal 4.2-5.4 [facility] [id number] [address] [address] Red Blood Count September 25, 2024 5:36am 2.73 M/mm3 Below low normal 4.2-5.4 [facility] [id number] [facility] [address] [address] Hemoglobin August 13, 2024 6:17am 9.5 g/dL Below low normal 12.0-15.0 [facility] [id number] [facility] [address] [address] Hemoglobin September 01, 2024 12:20pm 10.3 g/dL Below low normal 12.0-15.0 [facility] [id number] [facility] [address] [address] Hemoglobin September 05, 2024 6:39am 8.5 g/dL Below low normal 12.0-15.0 [facility] [id number] [facility] [address] [address] Hemoglobin September 19, 2024 7:00am 8.4 g/dL Below low normal 12.0-15.0 [facility] [id number] [address] [place] [address] Hemoglobin September 25, 2024 5:36am 7.4 g/dL Below low normal 12.0-15.0 [facility] [id number] [address] [place] [address] Hematocrit August 13, 2024 6:17am 29.5 % Below low normal 37.0-47.0 [facility] [id number] [address] [place] [address]329 Hematocrit September 01, 2024 12:20pm 33.2 % Below low normal 37.0-47.0 [facility] [id number] [address] [place] [address] Hematocrit September 05, 2024 6:39am 26.6 % Below low normal 37.0-47.0 [facility] [id number] [address] [place] [address]85 Hematocrit September 19, 2024 7:00am 26.9 % Below low normal 37.0-47.0 [facility] [id number] [address] [place] [address] Hematocrit September 25, 2024 5:36am 23.1 % Below low normal 37.0-47.0 [facility] [id number] [address] [place] [address]308 Mean Corpuscular Volume August 13, 2024 6:17am 91.6 fL 80-100 [facility] [id number] [address] [place] [address] 11532 Mean Corpuscular Volume September 01, 2024 12:20pm 89.5 fL 80-100 [facility] [id number] [address] [place] [address] 29494 Mean Corpuscular Volume September 05, 2024 6:39am 87.8 fL 80-[address] [place] [address] [facility] [id number] [address] [address] Mean Corpuscular Volume September 19, 2024 7:00am 86.2 fL 80-100 [facility] [id number] [address] [address] Mean Corpuscular Volume September 25, 2024 5:36am 84.6 fL 80-100 [facility] [id number] [address] [place] [address] 18652 Mean Corpuscular Hemoglobin August 13, 2024 6:17am 29.5 pg 26-34 [facility] [id number] [address] [place] [address] 49846 Mean Corpuscular Hemoglobin September 01, 2024 12:20pm 27.8 pg 26-34 [facility] [id number] [address] [place] [address]45 Mean Corpuscular Hemoglobin September 05, 2024 6:39am 28.1 pg 26-34 [facility] [id number] [address] [place] [address] 85394 Mean Corpuscular Hemoglobin September 19, 2024 7:00am 26.9 pg 26-34 [facility] [id number] [address] [place] [address] 31140 Mean Corpuscular Hemoglobin September 25, 2024 5:36am 27.1 pg 2634 [facility] [id number] [address] [place] [address] 19868 Mean Corpuscular Hemoglobin Concent August 13, 2024 6:17am 32.2 g/dL 36 [facility] [id number] [address] [place] [address] Mean Corpuscular Hemoglobin Concent September 01, 2024 12:20pm 31.0 g/dL Below low normal 36 [facility] [id number] [address] [place] [address] 24268 Mean Corpuscular Hemoglobin Concent September 05, 2024 6:39am 32.0 g/dL [address] [facility] [id number] [address] [place] [address] 05198 Mean Corpuscular Hemoglobin Concent September 19, 2024 7:00am 31.2 g/dL Below low normal [address] [place] [address] [facility] [id number] [address] [place] [address] Mean Corpuscular Hemoglobin Concent September 25, 2024 5:36am 32.0 g/dL [address] [place] [address] [facility] [id number] [address] [place] [address] Red Cell Distribution Width August 13, 2024 6:17am 13.6 % 11.5-14.5 [facility] [id number] [address] [place] [address] 24784 Red Cell Distribution Width September 01, 2024 12:20pm 14.3 % 11.5-14.5 [facility] [id number] [address] [place] [address]196 Red Cell Distribution Width September 05, 2024 6:39am 14.4 % 11.5-14.5 [facility] [id number] [address] [place] [address]66 Red Cell Distribution Width September 19, 2024 7:00am 15.2 % Above high normal 11.5-14.5 [facility] [id number] [address] [facility] [address] Red Cell Distribution Width September 25, 2024 5:36am 15.5 % Above high normal 11.5-14.5 [facility] [id number] [address] [place] [address]651 Platelet Count August 13, 2024 6:17am 249 k/mm3 150-375 [facility] [id number] [address] [place] [address] Platelet Count September 01, 2024 12:20pm 437 k/mm3 Above high normal 150-375 Delta: 249 on 08/13/24 [facility] [id number] [address] [place] [address]24 Platelet Count September 05, 2024 6:39am 325 k/mm3 150-375 [facility] [id number] [address] [place] [address]23 Platelet Count September 19, 2024 7:00am 630 k/mm3 Above high normal 150-375 [facility] [id number] [address] [place] [address]67 Platelet Count September 25, 2024 5:36am 449 k/mm3 Above high normal 150-375 [facility] [id number] [address] [place] [address] 30843 Mean Platelet Volume August 13, 2024 6:17am 10.5 fL Above high normal 7.4-10.4 [facility] [id number] [address] [place] [address] 32472 Mean Platelet Volume September 01, 2024 12:20pm 9.3 fL 7.4-10.4 [facility] [id number] [address] [place] [address]334 Mean Platelet Volume September 05, 2024 6:39am 9.6 fL 7.4-10.4 [facility] [id number] [address] [place] [address] Mean Platelet Volume September 19, 2024 7:00am 9.3 fL 7.4-10.4 [facility] [id number] [address] [place] [address] Mean Platelet Volume September 25, 2024 5:36am 9.8 fL 7.4-10.4 [facility] [id number] [address] [place] [address] 33267 Nucleated Red Blood Cells % August 13, 2024 6:17am 0.0 % 0.0-0.2 [facility] [id number] [address] [place] [address] 27332 Nucleated Red Blood Cells % September 01, 2024 12:20pm 0.0 % 0.0-0.2 [facility] [id number] [address] [place] [address] 36309 Nucleated Red Blood Cells % September 19, 2024 7:00am 0.0 % 0.0-0.2 [facility] [id number] [address] [place] [address] 57494 Nucleated Red Blood Cells % September 24, 2024 7:03am 0.0 % 0.0-0.2 [facility] [id number] [address] [place] [address] 87267 Immature Granulocyte % (Auto) August 13, 2024 6:17am 0.2 % 0-0.5 [facility] [id number] [address] [place] [address] 45952 Immature Granulocyte % (Auto) September 01, 2024 12:20pm 0.3 % 0-0.5 [facility] [id number] [address] [place] [address] 75327 Immature Granulocyte % (Auto) September 19, 2024 7:00am 0.6 % Above high normal 0-0.5 [facility] [id number] [address] [place] [address] 79725 Immature Granulocyte % (Auto) September 24, 2024 7:03am 0.4 % 0-0.5 [facility] [id number] [address] [place] [address] 63004 Neutrophils (%) (Auto) August 13, 2024 6:17am 64.4 % 45.5-73.1 [facility] [id number] [address] [place] [address] 62497 Neutrophils (%) (Auto) September 01, 2024 12:20pm 72.6 % 45.5-73.1 [facility] [id number] [address] [place] [address] 55255 Neutrophils (%) (Auto) September 19, 2024 7:00am 79.7 % Above high normal 45.5-73.1 [facility] [id number] [address] [place] [address] 32134 Neutrophils (%) (Auto) September 24, 2024 7:03am 65.2 % 45.5-73.1 [facility] [id number] [address] [place] [address] 31480 Lymphocytes (%) (Auto) August 13, 2024 6:17am 27.1 % 18.3-44.2 [facility] [id number] [address] [place] [address] 58635 Lymphocytes (%) (Auto) September 01, 2024 12:20pm 19.7 % 18.3-44.2 [facility] [id number] [address] [place] [address] 92118 Lymphocytes (%) (Auto) September 19, 2024 7:00am 10.8 % Below low normal 18.3-44.2 [facility] [id number] [address] [place] [address] 26425 Lymphocytes (%) (Auto) September 24, 2024 7:03am 24.4 % 18.3-44.2 [facility] [id number] [address] [place] [address] 31551 Monocytes (%) (Auto) August 13, 2024 6:17am 6.8 % 2.6-8.5 [facility] [id number] [address] [place] [address] 13265 Monocytes (%) (Auto) September 01, 2024 12:20pm 6.3 % 2.6-8.5 [facility] [id number] [address] [place] [address] 70366 Monocytes (%) (Auto) September 19, 2024 7:00am 7.4 % 2.6-8.5 [facility] [id number] [address] [place] [address] 68077 Monocytes (%) (Auto) September 24, 2024 7:03am 9.0 % Above high normal 2.6-8.5 [facility] [id number] [address] [place] [address] 21079 Eosinophils (%) (Auto) August 13, 2024 6:17am 1.1 % 0-4.4 [facility] [id number] [address] [place] [address] 28696 Eosinophils (%) (Auto) September 01, 2024 12:20pm 0.7 % 0-4.4 [facility] [id number] [address] [place] [address] 39815 Eosinophils (%) (Auto) September 19, 2024 7:00am 1.2 % 0-4.4 [facility] [id number] [address] [place] [address] 09251 Eosinophils (%) (Auto) September 24, 2024 7:03am 0.6 % 0-4.4 [facility] [id number] [address] [place] [address] 41723 Basophils (%) (Auto) August 13, 2024 6:17am 0.4 % 0.2-1.2 [facility] [id number] [address] [place] [address] 91182 Basophils (%) (Auto) September 01, 2024 12:20pm 0.4 % 0.2-1.2 [facility] [id number] [address] [place] [address] 50252 Basophils (%) (Auto) September 19, 2024 7:00am 0.3 % 0.2-1.2 [facility] [id number] [address] [place] [address] 06294 Basophils (%) (Auto) September 24, 2024 7:03am 0.4 % 0.2-1.2 [facility] [id number] [address] [place] [address] 97617 Nucleated RBC Absolute Count (auto) August 13, 2024 6:17am 0.000 K/mm3 0.0-0.012 [facility] [id number] [address] [place] [address] 23756 Nucleated RBC Absolute Count (auto) September 01, 2024 12:20pm 0.000 K/mm3 0.0-0.012 [facility] [id number] [address] [place] [address] 08492 Nucleated RBC Absolute Count (auto) September 19, 2024 7:00am 0.000 K/mm3 0.0-0.012 [facility] [id number] [address] [place] [address] 27931 Nucleated RBC Absolute Count (auto) September 24, 2024 7:03am 0.000 K/mm3 0.0-0.012 [facility] [id number] [address] [place] [address] 46090 Absolute Immature Granulocyte (auto August 13, 2024 6:17am 0.01 K/mm3 0.00-0.031 [facility] [id number] [address] [place] [address] 84609 Absolute Immature Granulocyte (auto September 01, 2024 12:20pm 0.02 K/mm3 0.00-0.031 [facility] [id number] [address] [place] [address] 17445 Absolute Immature Granulocyte (auto September 19, 2024 7:00am 0.10 K/mm3 Above high normal 0.00-0.031 [facility] [id number] [address] [place] [address] 29523 Absolute Immature Granulocyte (auto September 24, 2024 7:03am 0.02 K/mm3 0.00-0.031 [facility] [id number] [address] [place] [address] 62412 Absolute Neutrophils (auto) August 13, 2024 6:17am 3.5 K/mm3 1.3-6.7 [facility] [id number] [address] [place] [address] 55131 Absolute Neutrophils (auto) September 01, 2024 12:20pm 4.9 K/mm3 1.3-6.7 [facility] [id number] [address] [place] [address] 49738 Absolute Neutrophils (auto) September 19, 2024 7:00am 12.7 K/mm3 Above high normal 1.3-6.7 [facility] [id number] [address] [place] [address] 77733 Absolute Neutrophils (auto) September 24, 2024 7:03am 3.0 K/mm3 1.3-6.7 [facility] [id number] [address] [place] [address] 68000 Lymphocytes # (Auto) August 13, 2024 6:17am 1.48 K/mm3 0.9-3.2 [facility] [id number] [address] [place] [address] 77603 Lymphocytes # (Auto) September 01, 2024 12:20pm 1.32 K/mm3 0.9-3.2 [facility] [id number] [address] [place] [address] 18928 Lymphocytes # (Auto) September 19, 2024 7:00am 1.72 K/mm3 0.9-3.2 [facility] [id number] [address] [place] [address] 45727 Lymphocytes # (Auto) September 24, 2024 7:03am 1.14 K/mm3 0.9-3.2 [facility] [id number] [address] [place] [address] 53848 Monocytes # (Auto) August 13, 2024 6:17am 0.4 K/mm3 0.1-0.6 [facility] [id number] [address] [place] [address] 15416 Monocytes # (Auto) September 01, 2024 12:20pm 0.4 K/mm3 0.1-0.6 [facility] [id number] [address] [place] [address] 89178 Monocytes # (Auto) September 19, 2024 7:00am 1.2 K/mm3 Above high normal 0.1-0.6 [facility] [id number] [address] [place] [address] 65051 Monocytes # (Auto) September 24, 2024 7:03am 0.4 K/mm3 0.1-0.6 [facility] [id number] [address] [place] [address] 98528 Eosinophils # (Auto) August 13, 2024 6:17am 0.1 K/mm3 0-0.3 [facility] [id number] [address] [place] [address] 22070 Eosinophils # (Auto) September 01, 2024 12:20pm 0.1 K/mm3 0-0.3 [facility] [id number] [address] [place] [address] 94840 Eosinophils # (Auto) September 19, 2024 7:00am 0.2 K/mm3 0-0.3 [facility] [id number] [address] [place] [address] 26532 Eosinophils # (Auto) September 24, 2024 7:03am 0.0 K/mm3 0-0.3 [facility] [id number] [address] [place] [address] 06290 Basophils # (Auto) August 13, 2024 6:17am 0.0 K/mm3 0.0-0.1 [facility] [id number] [address] [place] [address] Basophils # (Auto) September 01, 2024 12:20pm 0.0 K/mm3 0.0-0.1 [facility] [id number] [address] [place] [address] Basophils # (Auto) September 19, 2024 7:00am 0.1 K/mm3 0.0-0.1 [facility] [id number] [address] [place] [address] Basophils # (Auto) September 24, 2024 7:03am 0.0 K/mm3 0.0-0.1 [facility] [id number] [address] [place] [address] Prothrombin Time September 02, 2024 8:26am 13.5 s 11.1-14.7 [facility] [id number] [address] [place] [address] Prothrombin Time September 07, 2024 10:04pm 14.4 s 11.1-14.7 [facility] [id number] [address] [place] [address] Prothrombin Time September 22, 2024 1:30pm 16.3 s Above high normal 11.1-14.7 [facility] [id number] [address] [place] [address] Prothromb Time International Ratio September 02, 2024 8:26am 1.0 INR Indication----- ---- --------0.9 - 1.1 Patients not on anticoagulant therapy.2.0 - 3.0 Routine therapy.2.5 - 3.5 Recurrent myocardial infarction or mechanical prosthetic valves. [facility] [id number] [address] [place] [address] Prothromb Time International Ratio September 07, 2024 10:04pm 1.1 INR Indication----- ---- --------0.9 - 1.1 Patients not on anticoagulant therapy.2.0 - 3.0 Routine therapy.2.5 - 3.5 Recurrent myocardial infarction or mechanical prosthetic valves. [facility] [id number] [facility] [address] [address] Prothromb Time International Ratio September 22, 2024 1:30pm 1.3 INR Indication----- ---- --------0.9 - 1.1 Patients not on anticoagulant therapy.2.0 - 3.0 Routine therapy.2.5 - 3.5 Recurrent myocardial infarction or mechanical prosthetic valves. [facility] [id number] [address] [place] [address] 45507 Activated Partial Thromboplast Time September 02, 2024 8:26am 28.7 s 22.3-36.8 [facility] [id number] [address] [place] [address] 30365 Activated Partial Thromboplast Time September 07, 2024 10:04pm 33.3 s 22.3-36.8 [facility] [id number] [address] [place] [address] 05533 Activated Partial Thromboplast Time September 22, 2024 1:30pm 33.6 s 22.3-36.8 [facility] [id number] [address] [place] [address] 96661 Urine Color August 07, 2024 1:03pm Dark yellow Yellow [facility] [id number] [address] [place] [address] 01018 Urine Color September 19, 2024 10:34am Yellow Yellow [facility] [id number] [address] [place] [address] 30451 Urine Appearance August 07, 2024 1:03pm Cloudy Above high normal Clear [facility] [id number] [address] [place] [address] 80479 Urine Appearance September 19, 2024 10:34am Clear Clear [facility] [id number] [address] [place] [address] 12913 Urine pH August 07, 2024 1:03pm 5.5 5.0-9.0 [facility] [id number] [address] [place] [address] 57436 Urine pH September 19, 2024 10:34am 6.0 5.0-9.0 [facility] [id number] 68[address] [facility] [address] [place] [address] 05766 Urine Specific [place] August 07, 2024 1:03pm 1.030 1.001-1.[address] [place] [address] Laboratory [id number] 68[address] [facility] [address] [place] [address] 30177 Urine Specific [place] September 19, 2024 10:34am 1.024 1.001-1.[address] [place] [address] Laboratory [id number] 68[address] [facility] [address] [place] [address] 26870 Urine Protein August 07, 2024 1:03pm 1+ mg/dL Above high normal Negative [facility] [id number] [address] [address] Urine Protein September 19, 2024 10:34am Trace mg/dL [facility] [id number] [address] [address] Urine Glucose (UA) August 07, 2024 1:03pm Negative mg/dL [facility] [id number] [address] [address] Urine Glucose (UA) September 19, 2024 10:34am Negative mg/dL [facility] [id number] [address] [facility] [address] [place] [address] 20863 Urine Ketones August 07, 2024 1:03pm 4+ mg/dL Above high normal Negative [facility] [id number] [address] [address] Urine Ketones September 19, 2024 10:34am Trace mg/dL Above high normal [facility] [id number] [address] [address]84 Urine Blood (Manual) August 07, 2024 1:03pm 1+ Above high normal Negative [facility] [id number] [address] [facility] [address] [place] [address] 28861 Urine Blood (Manual) September 19, 2024 10:34am Negative Negative [facility] [id number] [address] 08468 Urine Nitrate August 07, 2024 1:03pm Positive Above high normal Negative [facility] [id number] [address] 76050 Urine Nitrate September 19, 2024 10:34am Negative Negative [facility] [id number] [address] [address] Urine Bilirubin August 07, 2024 1:03pm Negative Negative [facility] [id number] [address] [place] [address] 19301 Urine Bilirubin September 19, 2024 10:34am Negative Negative [facility] [id number] [address] [place] [address] 16302 Urine Urobilinogen August 07, 2024 1:03pm 1.0 mg/dL <2.0 [facility] [id number] [address] [place] [address] 96403 Urine Urobilinogen September 19, 2024 10:34am 0.2 mg/dL <2.0 [facility] [id number] [address] [place] [address] 08107 Urine Leukocyte Esterase (Reflex) August 07, 2024 1:03pm 1+ ROSI/UL Above high normal Negative [facility] [id number] [address] [place] [address] 56814 Urine Leukocyte Esterase (Reflex) September 19, 2024 10:34am Negative ROSI/UL Negative [facility] [id number] [address] [place] [address] 32216 Urine RBC August 07, 2024 1:03pm 6-10 [HPF] Above high normal 0-2 [facility] [id number] [address] [place] [address] 98539 Urine RBC September 19, 2024 10:34am 3-5 [HPF] Above high normal 0-2 [facility] [id number] [address] [place] [address] 56519 Urine WBC August 07, 2024 1:03pm 21-50 [HPF] Above high normal 0-3 [facility] [id number] [address] [place] [address] 25878 Urine WBC September 19, 2024 10:34am 0-5 [HPF] 0-3 [facility] [id number] [address] [place] [address] 83374 Urine Squamous Epithelial Cells August 07, 2024 1:03pm Many [HPF] Above high normal Few [facility] [id number] [address] [place] [address] 87821 Urine Squamous Epithelial Cells September 19, 2024 10:34am Moderate [HPF] Few [facility] [id number] [address] [place] [address] 60461 Urine Calcium Oxalate Crystals August 07, 2024 1:03pm Present [HPF] None [facility] [id number] [address] [place] [address] 18541 Urine Calcium Oxalate Crystals September 19, 2024 10:34am Present [HPF] None [facility] [id number] [address] [address] Urine Bacteria August 07, 2024 1:03pm 4+ [HPF] Above high normal [facility] [id number] [address] [address] Urine Bacteria September 19, 2024 10:34am None seen [HPF] [facility] [id number] [address] [address] Urine Mucus August 07, 2024 1:03pm Present [LPF] [facility] [id number] [address] [place] [address] 76019 Sodium Level August 13, 2024 6:17am 135 mmol/L Below low normal 137-145 [facility] [id number] [address] [address]484 Sodium Level September 01, 2024 12:20pm 137 mmol/L 137-145 [facility] [id number] [address] 7[address] Sodium Level September 05, 2024 6:39am 136 mmol/L Below low normal 137-145 [facility] [id number] [address] [place] [address] 61311 Sodium Level September 19, 2024 7:00am 136 mmol/L Below low normal 137-145 [facility] [id number] [address] [address] Sodium Level September 25, 2024 5:36am 136 mmol/L Below low normal 137-145 [facility] [id number] [address] 9[address] Potassium Level August 13, 2024 6:17am 3.9 mmol/L 3.4-5.0 [facility] [id number] [address] [address] Potassium Level September 01, 2024 12:20pm 4.4 mmol/L 3.4-5.0 [facility] [id number] [address] [address] Potassium Level September 05, 2024 6:39am 3.8 mmol/L 3.4-5.0 [facility] [id number] [address] [address]861 Potassium Level September 19, 2024 7:00am 4.7 mmol/L 3.4-5.0 [facility] [id number] [address] [place] [address] 10654 Potassium Level September 25, 2024 5:36am 3.8 mmol/L 3.4-5.0 [facility] [id number] [address] [place] [address] 06911 Chloride Level August 13, 2024 6:17am 104 mmol/L [address] [place] [address] Laboratory [id number] [address] [place] [address] 81547 Chloride Level September 01, 2024 12:20pm 101 mmol/L [address] [place] [address] Laboratory [id number] [address] [place] [address] 21538 Chloride Level September 05, 2024 6:39am 102 mmol/L [address] [place] [address] Laboratory [id number] [address] [place] [address] 57203 Chloride Level September 19, 2024 7:00am 100 mmol/L [address] [place] [address] Laboratory [id number] [address] [place] [address] 37771 Chloride Level September 25, 2024 5:36am 102 mmol/L [address] [place] [address] Laboratory [id number] [address] [place] [address] 00900 Carbon Dioxide Level August 13, 2024 6:17am 22 mmol/L [facility] [id number] [address] [place] [address] 15797 Carbon Dioxide Level September 01, 2024 12:20pm 26 mmol/L [address] Laboratory [id number] [address] [place] [address] 87936 Carbon Dioxide Level September 05, 2024 6:39am 25 mmol/L 30 [facility] [id number] [address] [place] [address] 76238 Carbon Dioxide Level September 19, 2024 7:00am 20 mmol/L Below low normal 30 [facility] [id number] [address] [place] [address] 11669 Carbon Dioxide Level September 25, 2024 5:36am 27 mmol/L 30 [facility] [id number] [address] [place] [address] 34860 Anion Gap August 13, 2024 6:17am 9 mmol/L 03-07 [facility] [id number] [address] [place] [address] 94038 Anion Gap September 01, 2024 12:20pm 10 mmol/L 03-07 [facility] [id number] [address] [address] Anion Gap September 05, 2024 6:39am 9 mmol/L 03-07 [facility] [id number] [address] 26456 Anion Gap September 19, 2024 7:00am 16 mmol/L Above high normal 03-07 [facility] [id number] [address] 27910 Anion Gap September 25, 2024 5:36am 7 mmol/L 03-07 [facility] [id number] [address] [address] Blood Urea Nitrogen August 13, 2024 6:17am 9 mg/dL 06-11 Delta: 3 on 08/12/24-541 [facility] [id number] [address] [address] Blood Urea Nitrogen September 01, 2024 12:20pm 8 mg/dL 06-11 [facility] [id number] [address] 80[address] Blood Urea Nitrogen September 05, 2024 6:39am 4 mg/dL Below low normal 06-11 [facility] [id number] [address] [address]196 Blood Urea Nitrogen September 19, 2024 7:00am 8 mg/dL 06-11 [facility] [id number] [address] 01829 Blood Urea Nitrogen September 25, 2024 5:36am 8 mg/dL 06-11 [facility] [id number] [address] 16061 Creatinine August 13, 2024 6:17am 0.60 mg/dL Below low normal 0.7-1.0 [facility] [id number] [address] [address]15 Creatinine September 01, 2024 12:20pm 0.70 mg/dL 0.7-1.0 [facility] [id number] [address] 75791 Creatinine September 05, 2024 6:39am 0.60 mg/dL Below low normal 0.7-1.0 [facility] [id number] [address] [address] Creatinine September 19, 2024 7:00am 0.60 mg/dL Below low normal 0.7-1.0 [facility] [id number] [address] [place] [address] 08139 Creatinine September 25, 2024 5:36am 0.50 mg/dL Below low normal 0.7-1.0 [facility] [id number] [address] [place] [address] 68776 Estimat Glomerular Filtration Rate August 13, 2024 6:17am > 60 >59 > OR = 60 ml/min/1.73 square metersThe MDRD formula used to calculate the eGFR result has not been validated in patients > 70 years of age. [facility] [id number] [address] [place] [address] 42983 Estimat Glomerular Filtration Rate September 01, 2024 12:20pm > 60 >59 > OR = 60 ml/min/1.73 square metersThe MDRD formula used to calculate the eGFR result has not been validated in patients > 70 years of age. [facility] [id number] [address] [place] [address] 95240 Estimat Glomerular Filtration Rate September 05, 2024 6:39am > 60 >59 > OR = 60 ml/min/1.73 square metersThe MDRD formula used to calculate the eGFR result has not been validated in patients > 70 years of age. [facility] [id number] [address] [place] [address] 01437 Estimat Glomerular Filtration Rate September 19, 2024 7:00am > 60 >59 > OR = 60 ml/min/1.73 square metersThe MDRD formula used to calculate the eGFR result has not been validated in patients > 70 years of age. [facility] [id number] [address] [place] [address] 71755 Estimat Glomerular Filtration Rate September 25, 2024 5:36am > 60 >59 > OR = 60 ml/min/1.73 square metersThe MDRD formula used to calculate the eGFR result has not been validated in patients > 70 years of age. [facility] [id number] [address] [place] [address] 73280 Estimated Creatinine Clearance Calc August 13, 2024 6:17am 90 mL/min For use in prescription drug dose determination only. Reference ranges have not been establishe for this calculation. [facility] [id number] [address] [place] [address] 45663 Estimated Creatinine Clearance Calc September 01, 2024 12:20pm Not Reportable [facility] [id number] [address] [address] Estimated Creatinine Clearance Calc September 05, 2024 6:39am 90 mL/min For use in prescription drug dose determination only. Reference ranges have not been establishe for this calculation. [facility] [id number] [address] [place] [address] 60950 Estimated Creatinine Clearance Calc September 19, 2024 7:00am 90 mL/min For use in prescription drug dose determination only. Reference ranges have not been establishe for this calculation. [facility] [id number] [facility] [address] [address] Estimated Creatinine Clearance Calc September 25, 2024 5:36am Not Reportable [facility] [id number] [address] [place] [address] 36073 Glucose Level August 13, 2024 6:17am 103 mg/dL [address] [place] [address] Laboratory [id number] [address] [place] [address] 74321 Glucose Level September 01, 2024 12:20pm 91 mg/dL [address] [place] [address] Laboratory [id number] [address] [place] [address] 54122 Glucose Level September 05, 2024 6:39am 89 mg/dL [address] [place] [address] Laboratory [id number] [address] [place] [address] 02763 Glucose Level September 19, 2024 7:00am 92 mg/dL [address] [place] [address] Laboratory [id number] [address] [place] [address] 96389 Glucose Level September 25, 2024 5:36am 130 mg/dL Above high normal [address] [place] [address] Laboratory [id number] [address] [place] [address] 86108 Lactic Acid Level September 07, 2024 10:04pm 1.3 mmol/L 0.7-2.0 [facility] [id number] [facility] [address] [address] Calcium Level August 13, 2024 6:17am 8.6 mg/dL 8.4-10.2 [facility] [id number] [facility] [address] [address]382 Calcium Level September 01, 2024 12:20pm 9.1 mg/dL 8.4-10.2 [facility] [id number] [address] [place] [address] 11039 Calcium Level September 05, 2024 6:39am 8.3 mg/dL Below low normal 8.4-10.2 [facility] [id number] [address] [place] [address] 13503 Calcium Level September 19, 2024 7:00am 9.3 mg/dL 8.4-10.2 [facility] [id number] [address] [place] [address] 86083 Calcium Level September 25, 2024 5:36am 8.6 mg/dL 8.4-10.2 [facility] [id number] [address] [place] [address] 49780 Total Bilirubin August 13, 2024 6:17am 0.2 mg/dL 0.2-1.3 [facility] [id number] [address] [place] [address] 30386 Total Bilirubin September 07, 2024 10:04pm 0.5 mg/dL 0.2-1.3 [facility] [id number] [address] [place] [address] 30190 Total Bilirubin September 22, 2024 1:30pm 0.3 mg/dL 0.2-1.3 [facility] [id number] [address] [place] [address] 47186 Aspartate Amino Transf (AST/SGOT) August 13, 2024 6:17am 16 U/L [address] Laboratory [id number] [address] [address] Aspartate Amino Transf (AST/SGOT) September 07, 2024 10:04pm 19 U/L [address] Laboratory [id number] [address] [place] [address] 85732 Aspartate Amino Transf (AST/SGOT) September 22, 2024 1:30pm 15 U/L [address] Laboratory [id number] [address] [place] [address] 88978 Alanine Aminotransfer ase (ALT/SGPT) August 13, 2024 6:17am 8 U/L 6-[address] [place] [address] Laboratory [id number] [address] [place] [address] 71411 Alanine Aminotransfer ase (ALT/SGPT) September 07, 2024 10:04pm 10 U/L [address] [place] [address] Laboratory [id number] [address] [address] Alanine Aminotransfer ase (ALT/SGPT) September 22, 2024 1:30pm 8 U/L 6-35 [facility] [id number] [address] [address] C-Reactive Protein August 12, 2024 5:42am < 0.5 mg/dL <1.1 [facility] [id number] [address] [address] Total Protein August 13, 2024 6:17am 6.0 g/dL Below low normal 6.3-8.2 [facility] [id number] [address] [address] Total Protein September 07, 2024 10:04pm 8.0 g/dL 6.3-8.2 [facility] [id number] [address] [place] [address] 80299 Total Protein September 22, 2024 1:30pm 7.0 g/dL 6.3-8.2 [facility] [id number] [address] [place] [address] 98931 Albumin August 13, 2024 6:17am 3.5 g/dL 3.5-5.1 [facility] [id number] [address] [place] [address] 54923 Albumin September 07, 2024 10:04pm 4.0 g/dL 3.5-5.1 [facility] [id number] [address] [place] [address] 73952 Albumin September 22, 2024 1:30pm 3.7 g/dL 3.5-5.1 [facility] [id number] [address] [place] [address] 90531 Alkaline Phosphatase August 13, 2024 6:17am 47 U/L 38-126 [facility] [id number] [address] 81565 Alkaline Phosphatase September 07, 2024 10:04pm 74 U/L 38-126 [facility] [id number] [address] [address]77 Alkaline Phosphatase September 22, 2024 1:30pm 62 U/L 38-126 [facility] [id number] [address] [place] [address] 12244 Lipase August 07, 2024 1:03pm 25 U/L 23-300 [facility] [id number] [address] [place] [address] 34764 Lipase September 07, 2024 10:04pm 15 U/L Below low normal 23-300 [facility] [id number] [address] [address] Carcinoembryo anuel Antigen August 08, 2024 6:01pm 5.5 ng/mL Above high normal 0.0-3.0 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: Ortho Clinical DiagnosticsMeth od: ImmunoassayCEA results determined by assays using different manufacturers or methods may not be comparable. [facility] [id number] [address] [place] [address] 21971 Carcinoembryo anuel Antigen September 11, 2024 8:02pm 3.9 ng/mL Above high normal 0.0-3.0 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: Ortho Clinical DiagnosticsMeth od: ImmunoassayCEA results determined by assays using different manufacturers or methods may not be comparable. [facility] [id number] [address] [place], [place] [address] Bedside Urine HCG, Qualitative August 07, 2024 1:00pm Negative Negative Negative Telcor POC Bedside Urine HCG, Qualitative September 12, 2024 8:52am Negative Negative Negative Telcor POC Urine Casts August 07, 2024 1:03pm 0-2 [facility] [id number] [address] [place] [address] 88101 Urine Casts September 19, 2024 10:34am 0-2 [facility] [id number] [address] [place] [address] 38895 Add Urine Microanalysis September 19, 2024 10:34am [facility] [id number] [address] [place] [address] 91466 Microbiology Results Procedure Source Result Collection Date/Time Result Date/Time Result Comment Performing Site Blood Culture Blood August 07, 2024 4:19pm August 13, 2024 2:58am [facility] Blood [facility] Blood September 02, 2024 8:34am September 08, 2024 4:29am [facility] Blood Culture Blood September 08, 2024 1:06am September 13, 2024 10:34am [facility] Aerobic Culture Abscess September 22, 2024 3:25pm September 25, 2024 11:02am [facility] Urine Culture Urine Clean Catch Escherichia Coli August 07, 2024 1:03pm August 09, 2024 7:58am [facility] Reports Author Marco A Alvarado [facility] [place] September 22, 2024 4:08pm Report Date/Time September 22, 2024 4 :09pm [facility] [place] [address] [place] [id number] Scan Report Signed Patient: Libby Maldonado : 1990 MR#: [id number] Age: 33 Acct:[id number] Loc: [id number] ADM Date: 09/22/[address]: Aguilar Lang M.D. Ordering Physician: Aguilar Lang MD Date of Service: 09/22/24 Procedure(s): CT guide absc cath placement Accession Number(s): [id number] cc: Aguilar Lang MD; UNKNOWN,DOCTOR~ EXAMINATION: CT guide absc cath placement DATE: 09/22/2024 15:35 INDICATION: Left lower quadrant abscess TECHNIQUE: The procedure including the risks and benefits was discussed with thepatient. Risks discussed included bleeding and infection. The patient understoodthe risks and benefits and agreed to proceed. The patient was confirmed to be receiving appropriate antibiotic coverage. The skin overlying the left lower quadrant was prepped and draped in usual sterile fashion. Conscious sedation wasprovided with 125 mcg fentanyl and 2 mg Versed IV. Anesthetic was administered with 1% lidocaine subcutaneously. A inclusion special educator CT of the lower abdomen and pelvis wasobtained with 100 mL Omnipaque-350 intravenous contrast. An 18-gauge trochar needle was inserted into the peritoneal fluid collection utilizing CT guidance. The inner stylette was removed and a J-wire advanced into the fluid collection with position confirmed by CT. The needle was removed and the wire and utilizingSeldinger technique the tract was serially dilated to 8 Honduran. An 8.5 Honduran pigtail catheter was then advanced over the wire into the fluid collection with position confirmed by CT. The loop was formed and locked and the wire removed. 8mL of opaque reddish- west fluid was aspirated and sent to the lab for Gram stain and cultures. The catheter was stitched to the skin with suture. Antibiotic ointment and a sterile dressing were applied. There were no immediate complications. The dose-length product was 356.85 mGy-cm. FINDINGS: CT images demonstrate the catheter within the small fluid collection at the left lower quadrant/anterolateral left pelvis. 8 mL fluid was aspirated for testing. IMPRESSION: 1. Successful CT-guided left lower quadrant abscess drainage catheter placement. 2. 8 mL fluid was sent for aerobic and anaerobic cultures. 3. The catheter will be managed by Dr. Lang. Reviewed, dictated and finalized at location A. Dictated By: Marco A Alvarado MD 09/22/24 1540 Signed By: <Electronically signed by Marco A Alvarado MD in OV> 09/22/24 1608 Vital Signs Vital Reading Result Reference Range Collection Date/Time Height 62 [in_i] August 07, 2024 9:10pm Weight 53.00 kg August 07, 2024 9:10pm Body Temperature 97.9 [degF] 97.6-99.6 July 272023 6:00am Heart Rate 79 /min 60-100 August 13, 2024 6:00am Respiratory rate 18 /min -July 272023 6:00am Oxygen saturation by Pulse oximetry 100 % 90-100 August 13, 2024 6:00am BP Systolic 96 mm[Hg] 100-140 August 13, 2024 6:00am BP Diastolic 48 mm[Hg] 60-90 August 13, 2024 6:00am BMI (Body Mass Index) 21.3 kg/m2 Sept2023 9:10pm Height 62 [in_i] September 01 9:26am Weight 50.34 kg September 01 9:26am Body Temperature 97.3 [degF] 97.6-99.6 August 9:26am Heart Rate 76 /min 60-100 September 01 9:26am Respiratory rate 18 /min -August 9:26am Oxygen saturation by Pulse oximetry 97 % 90-100 September 01, 2024 9: 26am BP Systolic 112 mm[Hg] 100-140 September 01 9:26am BP Diastolic 62 mm[Hg] 60-90 September 01 9:26am BMI (Body Mass Index) 20.2 kg/m2 Octobe r 2023 9:26am Height 62 [in_i] September 01 9:40pm Weight 52.00 kg September 05, 2 024 6:00am Body Temperature 99.3 [degF] 97.6-99.6 August 5:25am Heart Rate 92 /min 60-100 September 05, 2 024 5:25am Respiratory rate 18 /min -August 5:25am Oxygen saturation by Pulse oximetry 97 % 90-100 September 05, 2024 5 :25am BP Systolic 105 mm[Hg] 100-140 September 05, 2 024 5:25am BP Diastolic 65 mm[Hg] 60-90 September 05, 2 024 5:25am BMI (Body Mass Index) 20.2 kg/m2 Octobe r 2023 12:36pm Inhaled oxygen flow rate 2 L/min Oct janet 2023 9:45am Height 62 [in_i] September 07, 2 024 6:05pm Weight 50.00 kg September 07, 2 024 6:05pm Body Temperature 97.9 [degF] 97.6-99.6 August 2:00pm Heart Rate 86 /min 60-100 September 19, 2 024 2:00pm Respiratory rate 18 /min -August 2:00pm Oxygen saturation by Pulse oximetry 100 % 90-100 September 19, 2024 2 :00pm BP Systolic 155 mm[Hg] 100-140 September 19, 2 024 2:00pm BP Diastolic 78 mm[Hg] 60-90 September 19, 2 024 2:00pm BMI (Body Mass Index) 20.1 kg/m2 Octobe r 2023 11:35am Inhaled oxygen flow rate 8 L/min Oct janet 2023 1:30pm Height 62 [in_i] September 22, 2 024 11:02am Body Temperature 97.9 [degF] 97.6-99.6 August 11:02am Heart Rate 75 /min 60-100 September 22, 2 024 11:02am Oxygen saturation by Pulse oximetry 99 % 90-100 September 22, 2024 1 1:02am BP Systolic 88 mm[Hg] 100-140 September 22, 2 024 11:02am BP Diastolic 52 mm[Hg] 60-90 September 22, 2 024 11:02am Height 57 [in_i] September 22, 2 024 1:49pm Weight 46.60 kg September 22, 2 024 1:49pm Body Temperature 97.5 [degF] 97.6-99.6 August 6:00am Heart Rate 86 /min 60-100 September 25, 2 024 6:00am Respiratory rate 18 /min 12-20 August 6:00am Oxygen saturation by Pulse oximetry 97 % 90-100 September 25, 2024 6 :00am BP Systolic 102 mm[Hg] 100-140 September 25, 2 024 6:00am BP Diastolic 44 mm[Hg] 60-90 September 25, 2 024 6:00am BMI (Body Mass Index) 22.2 kg/m2 Octobe r 2023 11:07am Inhaled oxygen flow rate 2 L/min Oct janet 2023 3:10pm Advance Directives Advance Directive Response Recorded Date/ Time Current Advance Directive No Octobe r 2023 12:54am Current Advance Directive No Octobe r 2023 12:43pm Current Advance Directive No Septem 2023 6:33pm Current Advance Directive No Octobe r 2023 9:37pm Insurance Providers Guarantor Libby Maldonado Address [address] [facility] [address] Contact Info. Home Phone: Payer Policy Id Coverage Id Subscriber's Name Subscriber Id Effective Date Expiration Date MD Rudolph [id number] Libby Maldonado [id number] 2017 Encounters Encounter Location(s) Arrival/Admit Date Discharge /Depart Date Provider(s) Discharged Inpatient [facility] 2 Medical August 07, 2024 6:52pm August 13, 2024 12:21pm Alysia Eric APRN Departed Physician/Provi frankie Office Visit [facility] September 01, 2024 9:05am September 01, 2024 9:57am Aguilar Lang MD Departed Clinical [facility] Imaging September 01, 2024 11:44am September 01, 2024 11:45am Aguilar Lang MD Discharged Inpatient [facility] 3 Med Surg September 01, 2024 9:54pm September 05, 2024 12:45pm Elham Vences MD Discharged Inpatient [facility] 3 Med Surg September 08, 2024 12:14am September 19, 2024 4:05pm Aguilar Lang MD Departed Physician/Provi frankie Office Visit [facility] September 22, 2024 10:40am September 22, 2024 11:22am Aguilar Lang MD Discharged Inpatient [place] [id number] Medical September 23, 2024 11:24am September 25, 2024 5:15pm Aguilar Lang MD Recent Diagnosis Onset Date Constipation Constipation Dyschezia Anemia Abdominal wall abscess 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 Colon perforation Anemia Dehydration Encounter for surgical aftercare followi ng surgery on the digestive system History of colon resection Left lower quadrant abdominal abscess Hypotension 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 Dehydration History of colon resection Left lower quadrant abdominal abscess Anemia Hypotension Functional Status Observation Response Date Recorded Functional capacity on discharge independent amb ulation September 19, 2024 2:20pm Functional capacity on discharge independent amb ulation September 25, 2024 5:00pm Functional capacity on discharge independent amb ulation August 13, 2024 9:31am Functional capacity on discharge independent amb ulation September 05, 2024 10:36am Mental Status Observation Response Date Recorded patient oriented x3 Yes August 2:54pm patient oriented x3 Yes August 11:30am patient oriented x3 Yes August 132023 10:07am patient oriented x3 Yes August 1:01pm Assessments Diagnosis Onset Date Resolution Status Constipation acute Constipation acute Dyschezia acute Anemia chronic Abdominal wall abscess acute Colocutaneous fistula acute Colon cancer without distant metastasis acute Colon perforation acute Anemia chronic Dehydration acute Encounter for surgical after care following surgery on the digestive system acute History of colon resection a cute Left lower quadrant abdominal abscess acute Hypotension resolved Colocutaneous fistula acute Colon cancer without distant metastasis acute Dehydration acute History of colon resection a cute Left lower quadrant abdominal abscess acute Anemia chronic Hypotension resolved Plan of Treatment Author [facility] Authored September 01, 2024 10 :10am Libby is still having concer ns after a hospital admission from 08/07/24-08/13/24. Patient was instructed to start taking Psyllium husk Metamucil BID and stool softeners to help with constipation. I will order a STAT CT abdomen/pelvis with contrast, CBC and BMP to be done today. Will call patient with results and plan for continued care. Author [facility] Authored September 22, 2024 1 1:45am Patient returns following re cent sigmoid colon resection with hand-sewn end-to-end anastomosis, drainage abdominal wall abscess on 09/12/24. Patient is very dehydrated and hypotensive in the office. Will plan for direct admit for further evaluation. Future Tests Future scheduled test information is unavailable Pending Tests Test Name Ordered Date Scheduled Date Code Status September 01, 2024 5:38pm September 01, 2024 5:38pm Future Visits Future appointment information is unavailable Referrals to Other Providers Reason for Referral Referral Start Date Provider Provider Contact Information Provider Address Appointment has already been scheduled Aguilar Lang MD Work Phone: [phone] [facility] [address] [place] [address] Aguilar Lang MD Work Phone: [phone] [place] [phone] Santos office to make appointment. Aguilar Lang MD Work Phone: [phone] Santos office to make appointment Aguilar Lang MD Work Phone: [phone] [place] [phone] Future Procedures Procedure Name Ordered Date Scheduled Date Admit as Inpatient September 01, 2024 5:38pm Octo trang 2023 5:38pm Complete Blood Count with Diff September 19 2:34pm Admit as Inpatient September 08, 2024 12:14am Oc tober 2023 12:14am Admit as Inpatient September 11, 2024 5:33pm Oct janet 2023 5:33pm Discharge Order September 19, 2024 2:20pm Octobe r 2023 3:00pm Aerobic/Anaerobic Culture/Gram September 22 3:22pm September 22, 2024 3:25pm Discharge Order September 25, 2024 3:54pm Octobe r 2023 3:54pm Placement to Observation September 22, 2024 12:5 3pm September 22, 2024 12:53pm Change Status to Inpatient September 23, 2024 11 :24am September 23, 2024 11:24am Consult to Dietitian August 11, 2024 9:55am August 11, 2024 12:00am Discharge Order August 13, 2024 12:01pm Sep tember 2023 12:01pm Placement to Observation August 07, 2024 4: 41pm August 07, 2024 4:41pm Change Status to Inpatient August 07, 2024 6:52pm August 07, 2024 6:52pm Consult to Physician August 07, 2024 4:41pm August 07, 2024 4:42pm Admit as Inpatient September 01, 2024 9:54pm Octo trang 2023 9:54pm Discharge Order September 05, 2024 10:31am Octob er 2023 10:31am Future Medications Future medication information is unavailable Patient Instructions Antibiotic Form How to Stop Smoking (DC) Diverticulitis (DC) Low Fiber Diet (DC) Perforated Bowel (DC) Constipation in Children (AC ) Constipation in Children (GEN) Constipation (AC) Constipation (GEN) Antibiotic Form Antibiotic Form Pain Management (DC) Antibiotic Form Oxycodone/Acetaminophen (By mouth) Ketorolac (By mouth) Tramadol (By mouth) Naloxone (Into the nose) Goals Acute Goals Author Authored Date Verbalizes/Demonstrates Understanding *Demonstrates understanding of teaching [facility] September 19, 2024 3:53am Participate in Discharge Carlos nning In order to achieve this outcome, the patient/ and or family will: * assist in identification of DME needs * assist in identification of community resource needs * assist in identification of appropriate discharge destination [facility] September 19, 2024 4:38pm Develop pain management prog samson In order to achieve this outcome the patient will: * Use the pain scale appropriately * Identify options for pain control - Analgesics - Narcotics - Non-medication measures [facility] September 19, 2024 4:38pm Increase knowledge regarding pain mgmt *Demonstrates understanding of teaching [facility] September 18, 2024 4:16pm Increase knowledge - smoking cessation Pt will verbalize understanding of smoking cessation resources [facility] September 19, 2024 3:53am Improved infection * Maintains vital signs WNL * Evidences no purulent drainage from wounds, incisions, and tubes * Maintains optimal lab values [facility] September 19, 2024 4:38pm Exhibit intact skin * Skin remains intact [facility] September 19, 2024 4:38pm Maintains or Improves Mobili ty Maintains mobility or exhibits improvement in mobility [facility] September 19, 2024 3:53am Improved nutritional status [facility] September 19, 2024 4:38pm Demonstrate/Verbalize Minima l Pain Pt will Demonstrate/Verbalize Minimal Pain to Surgical Intervention 1. Assess Location, Duration, and Intensity of Pain 2. Change Position as Allowed 3. Use Therapeutic Communication 4. Relay Complaints of Pain to Primary Nurse [facility] September 17, 2024 3:42am Exhibits optimal GI function *Exhibits adequate intake and output *Exhibits adequate nutritional status [facility] September 19, 2024 3:52am Maintain fluid and electroly te balance * Understands adequate fluid intake * Maintains vital signs WNL * Maintains optimal electrolyte values * Maintains balanced intake and output * Maintains BUN and Hct WNL * Maintains normal skin turgor [facility] September 19, 2024 3:53am Exhibit optimal tissue integ rity * Exhibits granulation/healing at site * Exhibits decreased drainage at site * Exhibits no s/s of infection * Exhibits a decrease in lesion size * Maintains nutritional status * Maintains hydration status * Maintains optimal lab values [facility] September 19, 2024 3:52am Pt will Experience Minimal A nxiety Patient will Demonstrate/Verbalize Minimal Anxiety Prior to Surgery 1. [place] Patient by Explaining Room & Equipment 2. Allow Patient to Verbalize and Answer Questions 3. Monitor Patient Comfort i.e. Provide Warm Blankets 4. Indicate Special Needs r/t Development Age 5. Provide Emotional Support and Reassuring Atmosphere 6. Describe Sequence of Events During Pre-Op Period 7. Confirm Written and Verbal Consent for Operative Procedure [facility] September 17, 2024 3:42am Demonstrate/Verbalize Minima l Pain Pt will Demonstrate/Verbalize Minimal Pain to Surgical Intervention 1. Assess Location, Duration, and Intensity of Pain 2. Change Position as Allowed 3. Use Therapeutic Communication 4. Relay Complaints of Pain to Primary Nurse [facility] September 17, 2024 3:42am Impaired Breathing Patient will have adequate ventilation and oxygenation 1. Monitor Airway Status 2. Provide Stimulation 3. Administer Oxygen Therapy as Indicated 4. Reposition Patient [facility] September 17, 2024 3:42am Minimal Nausea Patient will Verbalize Minimal Nausea Prior to Discharge 1. Assess Prior History of Post-Op Nausea 2. Monitor Intake and Output 3. Administer Adequate IV Fluids 4. Limit PO Intake 5. Administer Antiemetics as Ordered 6. Apply Supplemental Oxygen 7. Minimize Movement of Patient [facility] September 17, 2024 3:42am Remain free of injury *Follows Safety Interventions [facility] September 19, 2024 3:53am Maintains/improves level of orientation * Orients to person/place/time/situation [facility] September 19, 2024 3:53am Increase knowledge - smoking cessation Pt will verbalize understanding of smoking cessation resources [facility] September 25, 2024 10:22am Remain free of injury *Follows Safety Interventions [facility] September 25, 2024 10:22am Improved infection * Maintains vital signs WNL * Evidences no purulent drainage from wounds, incisions, and tubes * Maintains optimal lab values [facility] September 25, 2024 5:27pm Exhibits optimal GI function *Exhibits adequate intake and output *Exhibits adequate nutritional status [facility] September 25, 2024 5:27pm Exhibit optimal tissue integ rity * Exhibits granulation/healing at site * Exhibits decreased drainage at site * Exhibits no s/s of infection * Exhibits a decrease in lesion size * Maintains nutritional status * Maintains hydration status * Maintains optimal lab values [facility] September 25, 2024 5:27pm Maintain fluid and electroly te balance * Understands adequate fluid intake * Maintains vital signs WNL * Maintains optimal electrolyte values * Maintains balanced intake and output * Maintains BUN and Hct WNL * Maintains normal skin turgor [facility] September 25, 2024 10:22am Demonstrate/Verbalize Minima l Pain Pt will Demonstrate/Verbalize Minimal Pain to Surgical Intervention 1. Assess Location, Duration, and Intensity of Pain 2. Change Position as Allowed 3. Use Therapeutic Communication 4. Relay Complaints of Pain to Primary Nurse [facility] September 22, 2024 4:16pm Verbalizes/Demonstrates Understanding *Demonstrates understanding of [facility] September 25, 2024 10:22am Participate in Discharge Carlos nning In order to achieve this outcome, the patient/ and or family will: * assist in identification of DME needs * assist in identification of community resource needs * assist in identification of appropriate discharge destination [facility] September 25, 2024 5:27pm Develop pain management prog samson In order to achieve this outcome the patient will: * Use the pain scale appropriately * Identify options for pain control - Analgesics - Narcotics - Non-medication measures [facility] September 25, 2024 10:22am Increase knowledge regarding pain mgmt *Demonstrates understanding of teaching [facility] September 25, 2024 10:22am Improved nutritional status [facility] September 25, 2024 5:27pm Verbalizes/Demonstrates Understanding *Demonstrates understanding of [facility] August 13, 2024 12:21pm Participate in Discharge Carlos nning In order to achieve this outcome, the patient/ and or family will: * assist in identification of DME needs * assist in identification of community resource needs * assist in identification of appropriate discharge destination [facility] August 13, 2024 12:21pm Develop pain management prog samson In order to achieve this outcome the patient will: * Use the pain scale appropriately * Identify options for pain control - Analgesics - Narcotics - Non-medication measures [facility] August 13, 2024 12:21pm Increase knowledge regarding pain mgmt *Demonstrates understanding of teaching [facility] August 13, 2024 12:21pm Increase knowledge - smoking cessation Pt will verbalize understanding of smoking cessation resources [facility] August 13, 2024 12:21pm Improved infection * Maintains vital signs WNL * Evidences no purulent drainage from wounds, incisions, and tubes * Maintains optimal lab values [facility] August 13, 2024 12:21pm Exhibits optimal GI function *Exhibits adequate intake and output *Exhibits adequate nutritional status [facility] August 13, 2024 12:21pm Maintain fluid and electroly te balance * Understands adequate fluid intake * Maintains vital signs WNL * Maintains optimal electrolyte values * Maintains balanced intake and output * Maintains BUN and Hct WNL * Maintains normal skin turgor [facility] August 13, 2024 12:21pm Remain free of injury *Follows Safety Interventions [facility] [place] August 10, 2024 2:09pm Verbalizes/Demonstrates Understanding *Demonstrates understanding of teaching [facility] September 05, 2024 1:33pm Participate in Discharge Carlos nning In order to achieve this outcome, the patient/ and or family will: * assist in identification of DME needs * assist in identification of community resource needs * assist in identification of appropriate discharge destination [facility] September 05, 2024 1:33pm Develop pain management prog samson In order to achieve this outcome the patient will: * Use the pain scale appropriately * Identify options for pain control - Analgesics - Narcotics - Non-medication measures [facility] September 05, 2024 1:33pm Increase knowledge regarding pain mgmt *Demonstrates understanding of teaching [facility] September 05, 2024 1:33pm Increase knowledge - smoking cessation Pt will verbalize understanding of smoking cessation resources [facility] September 05, 2024 1:33pm Improved infection * Maintains vital signs WNL * Evidences no purulent drainage from wounds, incisions, and tubes * Maintains optimal lab values [facility] September 05, 2024 1:33pm Demonstrate/Verbalize Minima l Pain Pt will Demonstrate/Verbalize Minimal Pain to Surgical Intervention 1. Assess Location, Duration, and Intensity of Pain 2. Change Position as Allowed 3. Use Therapeutic Communication 4. Relay Complaints of Pain to Primary Nurse [facility] September 05, 2024 1:33pm Improved nutritional status [facility] September 05, 2024 1:33pm Exhibits optimal GI function *Exhibits adequate intake and output *Exhibits adequate nutritional status [facility] September 05, 2024 1:33pm Hospital Discharge Instructions Additional Instructions Follow-up with Dr. Lang next , 10/02/24. I have asked the office to schedule you an appointment and they should call you with a time. Call sooner with any questions. [phone] Drain site - you may apply a gauze dressing once daily and cover with tape. Do this for a few days and may leave open to air if it is dry with no drainage. Left lower quadrant wound - cover this wound with gauze dressing or just a dry, clean bandage (bandaid). Wash over wound with mild soap and water daily. Midline incision/wound - use a Q-tip to gently probe the small open wound on the lower part of the incision below the umbilicus, then apply silver gel to both open wounds and cover with gauze and an ABD pad. Finish antibiotics prescribed from your last discharge. No heavy lifting more than 10-15 lbs. Walk at least three times daily. You have been sent multiple medications to the pharmacy to help with pain control. Percocet (oxycodone) should only be taken as prescribed and only as needed for severe pain. You can take the Tramadol and ketorolac as needed for moderate and mild pain as needed, as prescribed. Try to minimize narcotic use with the stronger pain medication. You were prescribed potassium supplements to take for the next 10 days. Take daily and take with food. Continue taking the iron supplement you were prescribed on your last discharge as well. Discharge Summary Note Author Barbie [facility] September 25, 2024 5:00pm Note Date/Time September 25, 2024 3 :47pm [place] [id number] [place] [address] Discharge Summary Signed Patient: Libby Maldonado MR#: [id number] : 1990 Acct:[id number] Age: 33 ADM Date: 09/23/24 Loc: [id number] 349-[address]: Aguilar Lang M.D. cc: Aguilar Lang MD; UNKNOWN,DOCTOR~ 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 History of colon resection Hypotension Dehydration Anemia DS: Discharge Diagnosis Discharge Diagnosis (1) Left lower quadrant abdominal abscess: Code(s): K65.1 - Peritoneal abscess Status: Acute (2) Colon cancer without distant metastasis: Code(s): C18.9 - Malignant neoplasm of colon, unspecified Status: Acute (3) History of colon resection: Code(s): Z90.49 - Acquired absence of other specified parts of digestive tract Status: Acute (4) Dehydration: Code(s): E86.0 - Dehydration Status: Acute Assessment and Plan: Hydrated with IV fluids which were eventually discontinued once patient was tolerating oral intake. (5) Hypotension: Qualifiers: Hypotension type: hypotension due to hypovolemia Qualified Code(s): E86.1 - Hypovolemia Code(s): I95.9 - Hypotension, unspecified Status: Resolved Assessment and Plan: Improved with IV fluid hydration. Blood pressure stable prior to discharge. DS: Summary Hospital Course Reason for hospitalization: Patient is a 33-year-old woman who 1st presented to [facility] with abdominal painand CT scan evidence of diverticulitis with 2 small abscesses. She had already been treated at [facility] on a couple of different admissions for this but was still having problems when she came to our emergency room in mid July. Shewas treated with IV antibiotics and then discharged. She did well at home for awhile but then had increasing pain. When she came back to the emergency room, she was found to have a 5 cm abscess, larger than before, as well as signs of infection and sepsis. She was admitted again and a CT-guided percutaneous pigtail catheter was placed in the abscess. This drained purulent fluid and we were expecting the patient to heal following this with plans for outpatient resection of diverticulitis. Unfortunately, she did not do well at home and came back in now draining fecal material from the pigtail catheter. The pigtailcatheter was exchanged for a larger catheter but, although this improved things for a few days, eventually stool started draining out around the pigtail catheter. She was taken for open surgery on 09/12 2024 and sigmoidectomy was performed by Dr. Lang. By this time the patient had a perforated sigmoid with colocutaneous fistula. The perforated area was adherent to the left lower quadrant abdominal wall. There was a left lower quadrant abscess associated with this in the abdominal wall. The sigmoidectomy including the area of perforation was performed. Pathology on this did not show diverticulitis but instead showed stage 2 B adenocarcinoma. The surrounding omentum was biopsied and excised and showed no tumor. The peritoneum around the colocutaneous fistula was also excised and showed no evidence of malignancy. Patient did havehand-sewn colonic anastomosis. She was improving and plans were being made for discharge when and Sunday last week her white blood cell count started to rise. On Sunday it was up to 16,[address] scan of the abdomen and pelvis was done. This showed a left lower quadrant abscess. Plans were made for percutaneous drainage but, the patient had been through so much already, especially with having been found to have cancer only a few days before, that she wanted to have deep sedation for the procedure. This was technically arranged but then fact that the patient had eaten full breakfast that morning made the procedure too risky. She refused to have the procedure done under light sedation. She also very much wanted to be discharged. She was dischargedhome on oral antibiotics with scheduled follow-up with Dr. Lang the following Sunday. She returns for the follow-up appointment with more abdominal pain, generalized weakness, nausea, vomiting and found to have hypotension. She was then directly admitted for percutaneous drainage in fluid resuscitation with pain control. Hospital Course: She was treated with IV antibiotics. The patient had CT-guided drainage of leftlower quadrant abscess in Radiology on 09/22/2024. She tolerated the procedure well with sedation. She was found to be dehydrated and hypotensive. Blood pressure improved with IV fluid hydration. Her diet was advanced as tolerated. White blood cell count has been normal since 09/22/2024. Her differential has been improving. She remains anemic during this hospitalization and was continued on her iron supplements. Her hemoglobin did drop slightly to 6.9 from7.1. She was diuresed and her hemoglobin went back up to 7.4. No signs of active bleeding. Overall, her abdominal pain has improved significantly following percutaneous drainage. She was able to transition to oral analgesics with good pain control. Her percutaneous drain was monitored with no output over the last 48 hours and was removed at the bedside today. Cultures show no growth of any organisms to date. Gram stain showed many white blood cells, but no organisms seen. Her abdominal wound has been treated with silver gel dressing changes. She did have a small area below the umbilicus that started having purulence drainage and was opened by Dr. Lang. We are now applying silver gel to this area as well. Her left lower quadrant wound has nearly completely closed with only about a 0.5 cm open area. Labs remained stable today and she is tolerating an oral diet. She was started on potassium for mildhypokalemia. After discussing her case with Dr. Lang, she is stable for discharge today. She will continue the antibiotics prescribed from her last hospitalization once discharged. She was educated on the use of opioids and howto minimize narcotic use. We will have the patient follow up with Dr. Lang in 1week. Status at Discharge Functional status at discharge: independent ambulation Overall status at discharge: patient is progressing back to baseline Time Spent with Patient Time attestation: Total time spent providing and/or coordinating discharge services: Time spent: Greater than 30 minutes Exam Const: General: comfortable, no acute distress and awake Resp: Effort & Inspection: normal respiratory effort Auscultation: clear toauscultation bilaterally Cardio: Rate: regular rate Rhythm: regular rhythm GI: Inspection: non-distended GI Palp: Yes Soft to palpation, Yes Tenderness to palpation present (GI) (very minimal tenderness near midline wound, much improved), No Guarding due to palpation present (GI) and No Rebound tenderness present Auscultation: normal bowel sounds Other: LLQ percutaneous drain with no output. Suture and drain removed today and gauze dressing applied. Midline incision healing well with open wound at the top of the incision with pink tissue, no purulent drainage from this area. There is also a small opening to the incision just below the umbilicus with more serosanguineous drainage today, no purulent drainage from this area on my exam. No erythema. Extrem: General: edema DS: Data Data Completed and Pending Labs on day of discharge: Labs from last 24 hours 09/25/24 05:36 WBC 6.1 RBC 2.73 L Hgb 7.4 L Hct 23.1 L MCV 84.6 MCH 27.1 MCHC 32.0 RDW 15.5 H Plt Count 449 H MPV 9.8 Sodium 136 L Potassium 3.8 Chloride 102 Carbon Dioxide 27 Anion Gap 7 BUN 8 Creatinine 0.50 L Estim Creat Clear Calc Not Reportable Estimated GFR > 60 Glucose 130 H Calcium 8.6 Preliminary micro results at discharge 09/22/24 15:25 Anaerobic Culture - Preliminary Abscess Imaging Radiologist's impression: ITS Impressions Catheter Placement CT 09/22/24 15:40 IMPRESSION: 1. Successful CT-guided left lower quadrant abscess drainage catheter placement. 2. 8 mL fluid was sent for aerobic and anaerobic cultures. 3. The catheter will be managed by Dr. Lang. Discharge Plan Discharge Attending physician on discharge: Aguilar Lang Discharging Clinician: Barbie Smith Anticipated Discharge Date/Time: 09/25/24 15:42 Patient Disposition: Home, Self-Care Activity: may shower, no driving and other - see discharge instructions Diet: as tolerated and regular Wound Care Instructions: other - see discharge instructions Discharge Instructions: * Follow-up with Dr. Lang next , 10/02/24. I have asked the office to schedule you an appointment and they should call you with a time. Call sooner with any questions. [phone] * Drain site - you may apply a gauze dressing once daily and cover with tape. Do this for a few days and may leave open to air if it is dry with no drainage. * Left lower quadrant wound - cover this wound with gauze dressing or just a dry, clean bandage (bandaid). Wash over wound with mild soap and water daily. * Midline incision/wound - use a Q-tip to gently probe the small open wound on the lower part of the incision below the umbilicus, then apply silver gel to both open wounds and cover with gauze and an ABD pad. * Finish antibiotics prescribed from your last discharge. * No heavy lifting more than 10-15 lbs. * Walk at least three times daily. * You have been sent multiple medications to the pharmacy to help with pain control. Percocet (oxycodone) should only be taken as prescribed and only as needed for severe pain. You can take the Tramadol and ketorolac as needed for moderate and mild pain as needed, as prescribed. Try to minimize narcotic use with the stronger pain medication. * You were prescribed potassium supplements to take for the next 10 days. Take daily and take with food. * Continue taking the iron supplement you were prescribed on your last discharge as well. Patient Instructions: Antibiotic Form, Oxycodone/Acetaminophen (By mouth), Ketorolac (By mouth), Tramadol (By mouth), Naloxone (Into the nose) Stand Alone Forms: General Discharge Information Follow-up/Referrals: Aguilar Lang MD [Physician] - 1 Week Discharge Medications: New oxycodone-acetaminophen 5-325 mg Tablet 0.5 tablet PO Q6H PRN (Reason: Pain Rated 7-10) Qty: 10 0RF tramadol 50 mg Tablet 50 mg PO Q4-6H PRN (Reason: Pain Rated 4-6) Qty: 10 0RF ketorolac 10 mg tablet 10 mg PO Q6H PRN (Reason: pain) 5 Days Qty: 20 0RF Rx Instructions: maximum total duration of 5 days from all oral, intranasal, or parenteral formulations naloxone [Narcan] 4 mg/actuation spray,non-aerosol 4 mg intranasal Q2-3M PRN (Reason: opioid overdose) Qty: 2 0RF Rx Instructions: spray 1 dose into ONE nostril; alternate nostrils w each dose until help arrives potassium chloride [K-Tab] 20 mEq Tablet Extended Release 20 meq PO DAILY 10 Days Qty: 10 0RF Continued metronidazole 500 mg Tablet 500 mg PO Q8HR Qty: 21 0RF ciprofloxacin HCl 500 mg Tablet 500 mg PO Q12HR Qty: 14 0RF ferrous sulfate 325 mg (65 mg iron) Tablet,Delayed Release (Dr/Ec) 325 mg PO BID Qty: 60 2RF prochlorperazine [Compro] 25 mg suppository 25 mg RECTAL Q8H PRN (Reason: nausea and vomiting) Qty: 6 0RF oxycodone-acetaminophen [Percocet] 5-325 mg tablet 1 - 2 tablet PO Q6H PRN (Reason: pain) Qty: 20 0RF Date of admission: 09/23/24 11:24 Primary Care Provider: UNKNOWN,DOCTOR Admitting Provider: Aguilar Lang Attending physician on admission: Aguilar Lang Condition: Improved Quality VTE Prophylaxis VTE prophylaxis: mechanical ordered and pharmacologic ordered This report may have been done utilizing a voice recognition system. Attempts have been made to correct errors. However, there may be uncorrected grammatical, spelling, and recognition errors present. Report Initialized date/time: Barbie Smith APN 09/25/24 / 1547 Electronically signed by: Barbie Smith APN 09/25/24 1700 History & Physical Note Author Aguilar Lang [facility] September 22, 2024 6:04pm Note Date/Time September 22, 2024 6 :04pm [facility] [address] [place] [id number] History & Physical Report Signed Patient: Libby Maldonado MR#: [id number] : 1990 Acct:[id number] Age: 33 ADM Date: 09/22/24 Loc: [id number] 349-[address]: Aguilar Lang M.D. cc: Aguilar Lang MD; UNKNOWN,DOCTOR~ H&P: HPI History of Present Illness Date/Time: 09/22/24 17:43 Chief Complaint: Hypotension, abdominal pain, nausea Narrative: Patient is a 33-year-old woman who 1st presented to [facility] with abdominal painand CT scan evidence of diverticulitis with 2 small abscesses. She had already been treated at [facility] on a couple of different admissions for this but was still having problems when she came to our emergency room in mid July. Shewas treated with IV antibiotics and then discharged. She did well at home for awhile but then had increasing pain. When she came back to the emergency room, she was found to have a 5 cm abscess, larger than before, as well as signs of infection and sepsis. She was admitted again and a CT-guided percutaneous pigtail catheter was placed in the abscess. This drained purulent fluid and we were expecting the patient to heal following this with plans for outpatient resection of diverticulitis. Unfortunately, she did not do well at home and came back in now draining fecal a material from the pigtail catheter. The pigtail catheter was exchanged for a larger catheter but, although this improvedthings for a few days, eventually stool started draining out around the pigtail catheter. She was taken for open surgery on 09/12 2024 and sigmoidectomy was performed. By this time the patient had perforated sigmoid with colo cutaneous fistula. The perforated area was adherent to the left lower quadrant abdominal wall. There was a left lower quadrant abscess associated with this in the abdominal wall. The sigmoidectomy including the area of perforation was performed. Pathology on this did not show diverticulitis but instead showed stage 2 B adenocarcinoma. The surrounding omentum was biopsied and excised and showed no tumor. The peritoneum around the colocutaneous fistula was also excised and showed no evidence of malignancy. Patient did have hand-sewn colonic anastomosis. She was improving and plans were being made for discharge when and Sunday last week her white blood cell count started to rise. On Sunday it was up to 16,[address] scan of the abdomen and pelvis was done. This showed a left lower quadrant abscess. Plans were made for percutaneous drainage but, the patient had been through so much already, especially with having been found to have cancer only a few days before, that she wanted to havedeep sedation for the procedure. This was technically arranged but then fact that the patient had eaten full breakfast that morning made the procedure too risky. She refused to have the procedure done under light sedation. She also very much wanted to be discharged. She was discharged home on oral antibiotics with close follow-up with me this morning in the office. She did well Sunday and even Sunday at home. Then yesterday she started having more abdominal pain, felt very weak, had nausea and vomiting and was essentially miserable. She came to my scheduled office appointment this morning and, although she had showered at home, she was noted to have a blood pressure of 80/50 and was to week to move from the wheelchair to the examination table. She was very tearfuland uncomfortable. She was then directly admitted. IV fluids have been startedanalgesics are available. Labs have been drawn and the patient was scheduled tohave a CT-guided percutaneous drainage of the left lower quadrant abscess. She was amenable to this under sedation per Dr. Alvarado, the radiologist. Procedure has been performed and some blood-tinged purulent fluid was drained and sent for cultures. Patient's white blood cell count is in the norm her range but at the upper limit. Her left shift is a little better than it was on Sunday. Electrolytes look good. She is quite anemic. She is returned to the hospital now on her observation status for percutaneous drainage and fluid resuscitation with pain control. Review of Systems Review of Systems: All systems reviewed & are unremarkable except as noted in HPI and below (HPI) Constitutional: Constitutional: Reports as per HPI, Reports anorexia and Reports lethargy Comments: Insomnia Gastrointestinal: Gastrointestinal: Reports as per HPI, Reports abdominal pain, Reports constipation and Reports nausea Comments: Painful bowel movements and constipation Psychiatric: Psychiatric: Reports abnormal sleep pattern (Insomnia), Reports anxiety and Reports change in appetite PMFSH Past Medical History Medical History (Updated 09/22/24 @ 18:03 by Aguilar Lang MD) Anxiety Asthma in childhood, resolved Colocutaneous fistula Diverticulitis of large intestine with abscess Fecal peritonitis Hypotension Surgical History Surgical History (Updated 09/22/24 @ 11:18 by Coleen Hinson CMA) H/O gynecological procedure Mirena IUD insertion History of colon resection 09/08/2024 - Sigmoid colon resection with hand-sewn end-to-end anastomosis, drainage abdominal wall abscess Family History Family History Mother Diverticulitis Father Heart problem Social History Social History Years smoked: 15 Smoking status: Current every day smoker Tobacco type: e-cigarettes/vaping Second hand tobacco smoke exposure: Yes Alcohol intake: never Substance use: current Substance use type: marijuana Other substance usage details: Vape Do You Feel Safe in your Home?: Yes Lack of Transportation: No Lack of Food: Never True Current Housing: I Have Housing Concerned About Future Housing: No Difficulty Paying Gas/Electric Bills: YES Difficulty Paying for Meds: No Currently Unemployed: YES Education: High School Diploma/GED Difficulty w/ Childcare or Family Care: No Occupation/Education: occupation Gender identity (if verbalized by the patient): Female Spiritual care concerns: No Meds Home Medications and Allergies Home Medications Medication Instructions Recorded Confirmed Type ciprofloxacin HCl 500 mg tablet 500 mg PO Q12HR #14 tabs 09/19/24 09/22/24 Rx ferrous sulfate 325 mg (65 mg 325 mg PO BID #60 tabs 09/19/24 09/22/24 Rx iron) tablet,delayed release metronidazole 500 mg tablet 500 mg PO Q8HR #21 tabs 09/19/24 09/22/24 Rx oxycodone-acetaminophen 5 mg-325 1 - 2 tablet PO Q6H PRN pain #20 09/19/24 09/22/24 Rx mg tablet (Percocet) tabs prochlorperazine 25 mg rectal 25 mg RECTAL Q8H PRN nausea and 09/19/24 09/22/24 Rx suppository (Compro) vomiting #6 ea Allergies Allergy/AdvReac Type Severity Reaction Status Date / Time No Known Allergies Allergy Verified 09/12/24 09:28 Vital Signs Vital Signs - 24 hr 09/22/24 13:26 09/22/24 15:22 09/22/24 14:15 Temperature 35.7 C L Pulse Rate 62 75 Respiratory Rate 18 12 Blood Pressure 95/48 L 102/62 Pulse Oximetry 100 100 Oxygen Delivery Room Air Room Air Oxygen Flow Rate 09/22/24 14:20 09/22/24 15:15 09/22/24 15:20 Temperature Pulse Rate 72 69 73 Respiratory Rate 10 L 14 15 Blood Pressure 106/50 L 103/61 108/64 Pulse Oximetry 100 100 100 Oxygen Delivery Nasal Cannula Room Air Room Air Oxygen Flow Rate 2 09/22/24 14:25 09/22/24 14:30 09/22/24 14:35 Temperature Pulse Rate 79 86 79 Respiratory Rate 10 L 16 18 Blood Pressure 102/64 109/62 105/62 Pulse Oximetry 100 99 100 Oxygen Delivery Nasal Cannula Nasal Cannula Nasal Cannula Oxygen Flow Rate 2 2 2 09/22/24 14:40 09/22/24 14:45 09/22/24 14:50 Temperature Pulse Rate 81 86 82 Respiratory Rate 12 12 12 Blood Pressure 104/58 L 105/72 102/60 Pulse Oximetry 100 100 100 Oxygen Delivery Nasal Cannula Nasal Cannula Nasal Cannula Oxygen Flow Rate 2 2 2 09/22/24 14:55 09/22/24 15:00 09/22/24 15:05 Temperature Pulse Rate 75 73 77 Respiratory Rate 13 12 12 Blood Pressure 93/58 L 98/57 L 102/67 Pulse Oximetry 100 100 98 Oxygen Delivery Nasal Cannula Nasal Cannula Nasal Cannula Oxygen Flow Rate 2 2 2 09/22/24 15:10 09/22/24 15:25 09/22/24 16:31 Temperature 36.5 C Pulse Rate 71 70 67 Respiratory Rate 18 14 18 Blood Pressure 104/60 104/61 84/61 L Pulse Oximetry 100 100 100 Oxygen Delivery Nasal Cannula Room Air Oxygen Flow Rate 2 Exam Const: General: cooperative, comfortable, no acute distress, alert, awake, tired appearing, uncomfortable and thin Nutritional Appearance: thin Orientation/consciousness: patient oriented x3 and No confusion HENMT: Head: normocephalic and atraumatic Mouth: Yes Normal oral and palatal mucosa present Neck: Neck: normal visual inspection, no lymphadenopathy and nontender Resp: Effort & Inspection: normal respiratory effort Auscultation: clear toauscultation bilaterally Cardio: Rate: regular rate Rhythm: regular rhythm Heart sounds: no gallops, no murmurs and no rubs GI: Inspection: non-distended, incision (Open area at top of incision is pain can healing, left lower quadrant wound), scaphoid and no visible herniation GI Palp: Yes Firmness to palpation present (GI), Yes Tenderness to palpation present (GI) (Incision and lower quadrants with guarding), Yes Guarding due to palpation present (GI), No Hepatomegaly present, No Splenomegaly present, No Hernia present and No Palpable mass present Auscultation: Hypoactive bowel sounds present Skin: Lesions: no lesions Rashes: no rashes Neuro: General: no focal motor deficits and CN's II-XI intact bilaterally Cranial nerves: Yes Equal, round and reactive pupils present, Yes Bilaterally intact EOM present, Yes facial symmetry and Yes Midline tongue present Speech: normal speech Motor exam (neuro): 5/5 motor strength present throughout and Motor abnormalities not present Extrem: General: no clubbing, cyanosis or edema and edema Psych: Speech and movement: Clear speech present Affect: Sad affect present(Tearful) and Depressed mood present Thought process: Normal thought process present Thought content: Yes Depressive thoughts present Insight: Good insight present (Psych) H&P: Results Labs Labs: Short CBC 09/22/24 Range/Units 13:30 WBC 9.4 (4.5-10.0) K/mm3 Hgb 7.6 L (12.0-15.0) g/dL Hct 24.7 L (37.0-47.0) % Plt Count 471 H (150-375) k/mm3 BMP 09/22/24 13:30 Sodium 139 Potassium 4.4 Chloride 104 Carbon Dioxide 29 BUN 12 Creatinine 0.60 L Glucose 101 Calcium 9.0 Liver Function 09/22/24 Range/Units 13:30 Total Bilirubin 0.3 (0.2-1.3) mg/dL AST 15 (14-36) U/L ALT 8 (6-35) U/L Alkaline Phosphatase 62 (38-126) U/L Albumin 3.7 (3.5-5.1) g/dL Assessment and Plan Assessment and plan (1) Left lower quadrant abdominal abscess: Code(s): K65.1 - Peritoneal abscess Status: Acute Assessment and Plan: Drained percutaneously by Dr. Alvarado earlier today. Seropurulent fluid draining. No evidence of stool. Probably was the source of her leukocytosis 3 days ago. (2) Colocutaneous fistula: Code(s): K63.2 - Fistula of intestine Status: Acute Assessment and Plan: Resolved with sigmoidectomy and anastomosis 09/12/2024 (3) Colon cancer without distant metastasis: Code(s): C18.9 - Malignant neoplasm of colon, unspecified Status: Acute Assessment and Plan: T4a N0 M0 sigmoid colon cancer, stage II B (4) History of colon resection: Code(s): Z90.49 - Acquired absence of other specified parts of digestive tract Status: Acute Assessment and Plan: Resection was 10 days ago (5) Hypotension: Qualifiers: Hypotension type: hypotension due to hypovolemia Qualified Code(s): E86.1 - Hypovolemia Code(s): I95.9 - Hypotension, unspecified Status: Acute Assessment and Plan: Mild with blood pressure in the office of 80/50. Has been better since in the hospital. Receiving IV fluids (6) Dehydration: Code(s): E86.0 - Dehydration Status: Acute Assessment and Plan: Not eating and intra-abdominal abscess causing dehydration (7) Anemia: Qualifiers: Anemia type: other cause Other causes of anemia: chronic disease, other Qualified Code(s): D63.8 - Anemia in other chronic diseases classified elsewhere Code(s): D64.9 - Anemia, unspecified Status: Chronic Assessment and Plan: H&H lower than on discharge. Continue iron supplement. With IV fluids, expect this to drop even further. This report may have been done utilizing a voice recognition system. Attempts have been made to correct errors. However, there may be uncorrected grammatical,spelling, and recognition errors present. Report Initialized date/time: Aguilar Lang MD 09/22/241803 Electronically signed by: Aguilar Lang MD 09/22/241803 Progress Note Author Marco A Alvarado [facility] September 22, 2024 3:28pm Note Date/Time September 22, 2024 3 :27pm [place] [address] [place] [address] Sedation Report Signed Patient: Libby Maldonado MR#: [id number] : 1990 Acct:[id number] Age: 33 ADM Date: 09/22/24 Loc: [id number] 349-[address]: Aguilar Lang M.D. cc: Aguilar Lang MD; UNKNOWN,DOCTOR~ Moderate Sedation Note-Pt Data Patient Data Diagnosis: abscess Present Complaint: abscess Procedure to be performed/Plan: LLQ percutaneous abscess drain placement. Allergies Allergy/AdvReac Type Severity Reaction Status Date / Time No Known Allergies Allergy Verified 09/12/24 09:28 Home Medications Medication Instructions Recorded Confirmed Type ciprofloxacin HCl 500 mg tablet 500 mg PO Q12HR #14 tabs 09/19/24 09/22/24 Rx ferrous sulfate 325 mg (65 mg 325 mg PO BID #60 tabs 09/19/24 09/22/24 Rx iron) tablet,delayed release metronidazole 500 mg tablet 500 mg PO Q8HR #21 tabs 09/19/24 09/22/24 Rx oxycodone-acetaminophen 5 mg-325 1 - 2 tablet PO Q6H PRN pain #20 09/19/24 09/22/24 Rx mg tablet (Percocet) tabs prochlorperazine 25 mg rectal 25 mg RECTAL Q8H PRN nausea and 09/19/24 09/22/24 Rx suppository (Compro) vomiting #6 ea Current Medications: Active Medications Enoxaparin Sodium (Enoxaparin 30 Mg/0.3 Ml Syringe) 30 mg SUB-Q Q12HR [facility] Famotidine (Famotidine 20 Mg/2 Ml Vial) 20 mg IV PUSH Q12HR FIDELIA Lactated Ringer's (Lr - Lactated Ringers Iv) 1,000 mls @ 100 mls/hr IV CONT .Q10H FIDELIA Ibuprofen (Caldolor 800 Mg/200 Ml) 800 mg in 200 mls @ 400 mls/hr IVPB Q6H PRN PRN Reason: Breakthrough Pain Rated 1-3 or NPO Ceftriaxone Sodium (Rocephin 1 Gm/Ns 50 Ml) 1 gm in 50 mls @ 100 mls/hr IVPB Q24H [facility]IDELIA Metronidazole (Flagyl 500 Mg/Iso Soln 100 Ml) 500 mg in 100 mls @ 100 mls/hr IVPB Q8H [facility] Lorazepam (Lorazepam Inj (*Crx) 2 Mg/Ml Vial) 1 mg IV PUSH Q6H PRN PRN Reason: Anxiety Morphine Sulfate (Morphine Sulfate (*Crx) 2 Mg/Ml Inj) 2 mg IV PUSH Q2H PRN PRN Reason: Breakthrough Pain Rated 4-6 or NPO Morphine Sulfate (Morphine Sulfate (*Crx) 4 Mg/Ml Inj) 4 mg IV PUSH Q2H PRN PRN Reason: Breakthrough Pain Rated 7-10 or NPO Naloxone HCl (Naloxone Hcl 0.4 Mg/Ml Vial) 0.1 mg IV PUSH Q2M PRN PRN Reason: Opiate Reversal Trazodone HCl (Trazodone Hcl 50 Mg Tablet) 50 mg PO HS PRN PRN Reason: Insomnia Sedation/Anesthesia: No previous sedation/anesthesia problems (including family history). [facility] Past Medical History Medical History (Updated 09/22/24 @ 11:22 by Coleen Hinson CMA) Anxiety Asthma in childhood, resolved Colocutaneous fistula Diverticulitis of large intestine with abscess Fecal peritonitis Hypotension Surgical History Surgical History (Updated 09/22/24 @ 11:18 by Coleen Hinson CMA) H/O gynecological procedure Mirena IUD insertion History of colon resection 09/08/2024 - Sigmoid colon resection with hand-sewn end-to-end anastomosis, drainage abdominal wall abscess Family History Family History Mother Diverticulitis Father Heart problem Social History Social History Years smoked: 15 Smoking status: Current every day smoker Tobacco type: e-cigarettes/vaping Second hand tobacco smoke exposure: Yes Alcohol intake: never Substance use: current Substance use type: marijuana Other substance usage details: Vape Do You Feel Safe in your Home?: Yes Lack of Transportation: No Lack of Food: Never True Current Housing: I Have Housing Concerned About Future Housing: No Difficulty Paying Gas/Electric Bills: YES Difficulty Paying for Meds: No Currently Unemployed: YES Education: High School Diploma/GED Difficulty w/ Childcare or Family Care: No Occupation/Education: occupation Gender identity (if verbalized by the patient): Female Spiritual care concerns: No Mod Sed Physical Exam Physical Exam Pre Procedural Exam: Normal: Throat, Lungs, Heart Rate and Heart Rhythm and Variation: Appearance (ill appearing and tearfull) and Abdomen (multiple surgical wounds and dressings. diffuse TTP) Hours since solid foods: 14 Hours since liquid intake: 14 Mallampati Classification: class II Internal Medicine - PN: Obj Da Vital Signs Vital Signs: Vital Signs - 24 hr 09/22/24 13:26 09/22/24 15:22 Temperature 96.3 F L Pulse Rate 62 Respiratory Rate 18 Blood Pressure 95/48 L Pulse Oximetry 100 Oxygen Delivery Room Air Meds/Results Medications: Active Medications Generic Name Dose Route Start Last Admin Trade Name Freq PRN Reason Stop Dose Admin Enoxaparin Sodium 30 mg 09/22/24 21:00 Enoxaparin 30 Mg/0.3 Ml Syringe SUB-Q Q12HR FIDELIA Famotidine 20 mg 09/22/24 13:00 Famotidine 20 Mg/2 Ml Vial IV PUSH Q12HR FIDELIA Lactated Ringer's 1,000 mls @ 100 mls/hr 09/22/24 12:45 Lr - Lactated Ringers Iv IV CONT .Q10H FIDELIA Ibuprofen 800 mg in 200 mls @ 400 mls/hr 09/22/24 12:40 Caldolor 800 Mg/200 Ml IVPB Q6H PRN Breakthrough Pain Rated 1-3 or NPO Ceftriaxone Sodium 1 gm in 50 mls @ 100 mls/hr 09/22/24 13:00 Rocephin 1 Gm/Ns 50 Ml IVPB Q24H [facility] Metronidazole 500 mg in 100 mls @ 100 mls/hr 09/22/24 14:00 Flagyl 500 Mg/Iso Soln 100 Ml IVPB Q8H FIDELIA Lorazepam 1 mg 09/22/24 12:50 Lorazepam Inj (*Crx) 2 Mg/Ml Vial IV PUSH Q6H PRN Anxiety Morphine Sulfate 2 mg 09/22/24 12:45 Morphine Sulfate (*Crx) 2 Mg/Ml Inj IV PUSH Q2H PRN Breakthrough Pain Rated 4-6 or NPO Morphine Sulfate 4 mg 09/22/24 12:45 Morphine Sulfate (*Crx) 4 Mg/Ml Inj IV PUSH Q2H PRN Breakthrough Pain Rated 7-10 or NPO Naloxone HCl 0.1 mg 09/22/24 12:40 Naloxone Hcl 0.4 Mg/Ml Vial IV PUSH Q2M PRN Opiate Reversal Trazodone HCl 50 mg 09/22/24 12:50 Trazodone Hcl 50 Mg Tablet PO HS PRN Insomnia Labs 09/22/24 13:30 09/22/24 13:30 Labs: Laboratory Results - last 24 hr 09/22/24 13:30 WBC 9.4 RBC 2.83 L Hgb 7.6 L Hct 24.7 L MCV 87.3 MCH 26.9 MCHC 30.8 L RDW 15.0 H Plt Count 471 H MPV 8.8 Immature Gran % (Auto) 0.4 Neut % (Auto) 84.4 H Lymph % (Auto) 9.6 L Winston % (Auto) 5.1 Eos % (Auto) 0.2 Baso % (Auto) 0.3 Lymph # (Auto) 0.91 Winston # (Auto) 0.5 Eos # (Auto) 0.0 Baso # (Auto) 0.0 Abs Immat Gran (auto) 0.04 H Absolute Neuts (auto) 8.0 H Absolute Nucleated RBC 0.000 Nucleated RBC % 0.0 PT 16.3 H INR 1.3 APTT 33.6 Sodium 139 Potassium 4.4 Chloride 104 Carbon Dioxide 29 Anion Gap 6 BUN 12 Creatinine 0.60 L Estim Creat Clear Calc Not Reportable Estimated GFR > 60 Glucose 101 Calcium 9.0 Total Bilirubin 0.3 AST 15 ALT 8 Alkaline Phosphatase 62 Total Protein 7.0 Albumin 3.7 ASA Classification/Sedation ASA Classification/Sedation ASA Class: III Emergent: No Risks: Risks, benefits and alternatives explained and patient/family accepted plan for sedation. Patient re-evaluated immediately prior to sedation. This report may have been done utilizing a voice recognition system. Attempts have been made to correct errors. However, there may be uncorrected grammatical,spelling, and recognition errors present. Report Initialized date/time: Marco A Alvarado MD 09/22/24 / 7 Electronically signed by: Marco A Alvarado MD 09/22/241527 Progress Note Author [facility] September 23, 2024 2:27pm Note Date/Time September 23, 2024 2 :27pm [place] [id number] General Surgery Progress Note Signed Patient: Libby Maldonado MR#: [id number] : 1990 Acct:[id number] Age: 33 ADM Date: 09/23/24 Loc: [id number] 349-[address]: Aguilar Lang M.D. cc: ~ Progress Note: A&P Assessment and Plan (1) Left lower quadrant abdominal abscess: Code(s): K65.1 - Peritoneal abscess Status: Acute Assessment and Plan: Doing well after percutaneous drainage yesterday. Purulent fluid was noted initially but has been mostly serous last night and again today. So far cultures are showing only white blood cells, no bacteria on Gram stain. Continue to monitor drain output but hopefully can remove in a couple of days. (2) Dehydration: Code(s): E86.0 - Dehydration Status: Acute Assessment and Plan: Essentially resolved after IV fluids. Blood pressure better, tachycardia resolved. Will saline lock IVs and advance her diet. (3) Hypotension: Qualifiers: Hypotension type: hypotension due to hypovolemia Qualified Code(s): E86.1 - Hypovolemia Code(s): I95.9 - Hypotension, unspecified Status: Resolved (4) Colon cancer without distant metastasis: Code(s): C18.9 - Malignant neoplasm of colon, unspecified Status: Acute Assessment and Plan: Status post resection. Tumor is stage II B (5) History of colon resection: Code(s): Z90.49 - Acquired absence of other specified parts of digestive tract Status: Acute Assessment and Plan: Still some problems with abdominal incision but overall healing well. No evidence of anastomotic disruption or leak. Advance diet as discussed above. (6) Anemia: Qualifiers: Anemia type: other cause Other causes of anemia: chronic disease, other Qualified Code(s): D63.8 - Anemia in other chronic diseases classified elsewhere Code(s): D64.9 - Anemia, unspecified Status: Chronic Assessment and Plan: Low but stable. Continue nutritional supplements and iron Subjective Subjective Date/Time Seen: 09/23/24 14:14 Patient reports: feels better, pain is less, voiding w/o difficulty, bowel movement and afebrile Exam Const: General: cooperative, comfortable, no acute distress, alert, awake and thin; No anxious (Much less anxious) Orientation/consciousness: No confusion GI: Inspection: non-distended, incision (Healing well, small area purulent fluid below umbilicus), scaphoid and other (Serous with blood tinged fluid out pigtail catheter) GI Palp: Yes Soft to palpation and Yes Tenderness to palpation present (GI) (Left lower quadrant and lower abdomen, less than before) Auscultation: normal bowel sounds Objective Data Vital Signs Vital Signs: Vital Signs - 24 hr 09/22/24 15:22 09/22/24 14:15 09/22/24 14:20 Temperature 35.7 C L Pulse Rate 62 75 72 Respiratory Rate 18 12 10 L Blood Pressure 95/48 L 102/62 106/50 L Pulse Oximetry 100 100 100 Oxygen Delivery Room Air Nasal Cannula Oxygen Flow Rate 2 09/22/24 15:15 09/22/24 15:20 09/22/24 14:25 Temperature Pulse Rate 69 73 79 Respiratory Rate 14 15 10 L Blood Pressure 103/61 108/64 102/64 Pulse Oximetry 100 100 100 Oxygen Delivery Room Air Room Air Nasal Cannula Oxygen Flow Rate 2 09/22/24 14:30 09/22/24 14:35 09/22/24 14:40 Temperature Pulse Rate 86 79 81 Respiratory Rate 16 18 12 Blood Pressure 109/62 105/62 104/58 L Pulse Oximetry 99 100 100 Oxygen Delivery Nasal Cannula Nasal Cannula Nasal Cannula Oxygen Flow Rate 2 2 2 09/22/24 14:45 09/22/24 14:50 09/22/24 14:55 Temperature Pulse Rate 86 82 75 Respiratory Rate 12 12 13 Blood Pressure 105/72 102/60 93/58 L Pulse Oximetry 100 100 100 Oxygen Delivery Nasal Cannula Nasal Cannula Nasal Cannula Oxygen Flow Rate 2 2 2 09/22/24 15:00 09/22/24 15:05 09/22/24 15:10 Temperature Pulse Rate 73 77 71 Respiratory Rate 12 12 18 Blood Pressure 98/57 L 102/67 104/60 Pulse Oximetry 100 98 100 Oxygen Delivery Nasal Cannula Nasal Cannula Nasal Cannula Oxygen Flow Rate 2 2 2 09/22/24 15:25 09/22/24 16:31 09/22/24 19:59 Temperature 36.5 C 36.9 C Pulse Rate 70 67 90 Respiratory Rate 14 18 18 Blood Pressure 104/61 84/61 L 102/76 Pulse Oximetry 100 100 100 Oxygen Delivery Room Air Oxygen Flow Rate 09/23/24 00:25 09/23/24 04:02 09/23/24 08:00 Temperature 36.9 C 36.8 C Pulse Rate 102 H 85 Respiratory Rate 16 16 Blood Pressure 115/62 106/63 Pulse Oximetry 100 100 Oxygen Delivery Room Air Oxygen Flow Rate 09/23/24 10:27 Temperature 36.4 C Pulse Rate 84 Respiratory Rate 18 Blood Pressure 113/60 Pulse Oximetry 100 Oxygen Delivery Oxygen Flow Rate Intake/Output Intake/Output: Intake & Output 09/20/24 09/21/24 09/22/24 09/23/24 23:59 23:59 23:59 23:59 Intake Total 1500 1600 Output Total 200 900 Balance 1300 700 Meds/Results Medications: Active Medications Generic Name Dose Route Start Last Admin Trade Name Freq PRN Reason Stop Dose Admin Enoxaparin Sodium 30 mg 09/22/24 21:00 09/23/24 08:34 Enoxaparin 30 Mg/0.3 Ml Syringe SUB-Q Not Given Q12HR [facility] Famotidine 20 mg 09/22/24 13:00 09/23/24 08:29 Famotidine 20 Mg/2 Ml Vial IV PUSH 20 mg Q12HR [facility]IDELIA Administration Ferrous Sulfate 325 mg 09/22/24 17:00 09/23/24 08:29 Ferrous Sulfate [address] PO 325 mg BID FIDELIA Administration Lactated Ringer's 1,000 mls @ 100 mls/hr 09/22/24 12:45 09/23/24 12:42 Lr - Lactated Ringers Iv IV CONT Not Given .Q10H [facility] Ibuprofen 800 mg in 200 mls @ 400 mls/hr 09/22/24 12:40 09/23/24 13:14 Caldolor 800 Mg/200 Ml IVPB 400 mls/hr Q6H PRN Administration Breakthrough Pain Rated 1-3 or NPO Ceftriaxone Sodium 1 gm in 50 mls @ 100 mls/hr 09/22/24 13:00 09/23/24 12:39 Rocephin 1 Gm/Ns 50 Ml IVPB 100 mls/hr Q24H [facility]IA Administration Metronidazole 500 mg in 100 mls @ 100 mls/hr 09/22/24 14:00 09/23/24 13:17 Flagyl 500 Mg/Iso Soln 100 Ml IVPB 100 mls/hr Q8H [facility]IA Administration Lorazepam 1 mg 09/22/24 12:50 Lorazepam Inj (*Crx) 2 Mg/Ml Vial IV PUSH Q6H PRN Anxiety Morphine Sulfate 2 mg 09/22/24 12:45 Morphine Sulfate (*Crx) 2 Mg/Ml Inj IV PUSH Q2H PRN Breakthrough Pain Rated 4-6 or NPO Morphine Sulfate 4 mg 09/22/24 12:45 09/22/24 16:23 Morphine Sulfate (*Crx) 4 Mg/Ml Inj IV PUSH 4 mg Q2H PRN Administration Breakthrough Pain Rated 7-10 or NPO Naloxone HCl 0.1 mg 09/22/24 12:40 Naloxone Hcl 0.4 Mg/Ml Vial IV PUSH Q2M PRN Opiate Reversal Prochlorperazine Edisylate 10 mg 09/22/24 15:52 09/22/24 16:23 Prochlorperazine Edisylate 10 Mg/2 Ml Vial IV PUSH 10 mg Q6H PRN Administration Nausea And Vomiting Trazodone HCl 50 mg 09/22/24 12:50 09/22/24 20:57 Trazodone Hcl 50 Mg Tablet PO 50 mg HS PRN Administration Insomnia Radiology Results: ITS Impressions Catheter Placement CT 09/22/24 15:40 IMPRESSION: 1. Successful CT-guided left lower quadrant abscess drainage catheter placement. 2. 8 mL fluid was sent for aerobic and anaerobic cultures. 3. The catheter will be managed by Dr. Lang. Labs Labs: Laboratory Results - last 24 hr 09/23/24 06:31 WBC 8.3 RBC 2.68 L Hgb 7.1 L Hct 23.1 L MCV 86.2 MCH 26.5 MCHC 30.7 L RDW 15.2 H Plt Count 445 H MPV 9.0 Immature Gran % (Auto) 0.7 H Neut % (Auto) 80.1 H Lymph % (Auto) 12.9 L Winston % (Auto) 5.7 Eos % (Auto) 0.1 Baso % (Auto) 0.5 Lymph # (Auto) 1.07 Winston # (Auto) 0.5 Eos # (Auto) 0.0 Baso # (Auto) 0.0 Abs Immat Gran (auto) 0.06 H Absolute Neuts (auto) 6.6 Absolute Nucleated RBC 0.000 Nucleated RBC % 0.0 Sodium 139 Potassium 3.7 Chloride 104 Carbon Dioxide 23 Anion Gap 12 BUN 7 D Creatinine 0.50 L Estim Creat Clear Calc Not Reportable Estimated GFR > 60 Glucose 88 Calcium 8.3 L Imaging Attestation: I personally reviewed and interpreted this imaging study as follows: (CT scans of pigtail catheter placement) My impression: Catheter in great position Radiologist's impression: IMPRESSION: 1. Successful CT-guided left lower quadrant abscess drainage catheter placement. 2. 8 mL fluid was sent for aerobic and anaerobic cultures. 3. The catheter will be managed by Dr. Lang. This report may have been done utilizing a voice recognition system. Attempts have been made to correct errors. However, there may be uncorrected grammatical,spelling, and recognition errors present. Report Initialized date/time: Aguilar Lang MD 09/23/241426 Electronically signed by: Aguilar Lang MD 09/23/241426 Progress Note Author Barbie [facility] September 24, 2024 11:30am Note Date/Time September 24, 2024 1 1:30am [facility] [address] [place] [address] General Surgery Progress Note Signed Patient: Libby Maldonado MR#: [id number] : 1990 Acct:[id number] Age: 33 ADM Date: 09/23/24 Loc: [id number] 349-[address]: Aguilar Lang M.D. cc: ~ Progress Note: A&P Assessment and Plan (1) Left lower quadrant abdominal abscess: Code(s): K65.1 - Peritoneal abscess Status: Acute Assessment and Plan: Doing well after percutaneous drainage. Continue to monitor drain output, whichis now all serous. Cultures are showing only white blood cells on Gram stain, no bacteria. Continue to monitor drain output but hopefully can be removed in the next few days. (2) Dehydration: Code(s): E86.0 - Dehydration Status: Acute Assessment and Plan: Tolerating oral intake, IV fluids stopped today. (3) Hypotension: Qualifiers: Hypotension type: hypotension due to hypovolemia Qualified Code(s): E86.1 - Hypovolemia Code(s): I95.9 - Hypotension, unspecified Status: Resolved Assessment and Plan: BP improved following IV hydration. BP stable this morning and no longer tachycardic. (4) Colon cancer without distant metastasis: Code(s): C18.9 - Malignant neoplasm of colon, unspecified Status: Acute Assessment and Plan: Status post resection. Tumor is stage II B (5) History of colon resection: Code(s): Z90.49 - Acquired absence of other specified parts of digestive tract Status: Acute Assessment and Plan: Still some problems with abdominal incision but overall healing well. (6) Anemia: Qualifiers: Anemia type: other cause Other causes of anemia: chronic disease, other Qualified Code(s): D63.8 - Anemia in other chronic diseases classified elsewhere Code(s): D64.9 - Anemia, unspecified Status: Chronic Assessment and Plan: Hgb remains low but has been stable. Hgb down slightly from 7.1 to 6.9 today. Nosigns of active bleeding. Fluids were still running this morning and she is tolerating good oral intake. This could be slightly dilutional. Continue iron supplements. Repeat labs tomorrow. Plan I have discussed the patient's case and plan of care with Dr. Lang. Subjective Subjective Date/Time Seen: 09/24/24 11:20 Patient reports: feels better, tolerating a regular diet, voiding w/o difficulty, flatus, bowel movement and afebrile Interval history: Patient reports feeling tired this morning. She didn't sleep well but reports itwas just due to being in the hospital. Her abdominal pain continues to improve. Today, she is only complaining of mild pain at the top of her incision where theopen wound is located. Denies pain at the LLQ perc drain. No output documented from the perc drain overnight, which appears serous again today. Hgb down from 7.1 to 6.9 this morning. She is still on IV fluids and drinking well. No blood in stools. Exam Const: General: comfortable and no acute distress Orientation/consciousness: patient oriented x3 GI: Inspection: non-distended GI Palp: Yes Soft to palpation, Yes Tenderness to palpation present (GI) (mild tenderness in the LLQ and near midline incision) and No Guarding due to palpation present (GI) Auscultation:normal bowel sounds Other: LLQ percutaneous drain with scant serous output Midline incision healing well with open wound at the top of the incision with pink tissue, no purulent drainage from this area. There is also a small opening to the incision just below the umbilicus with more serosanguineous drainage today, no purulent drainage from this area on my exam. No erythema. Objective Data Vital Signs Vital Signs: Vital Signs - 24 hr 09/23/24 14:27 09/23/24 19:52 09/24/24 04:16 Temperature 98.3 F 98.1 F 97.6 F Pulse Rate 84 70 62 Respiratory Rate 18 16 16 Blood Pressure 110/68 106/57 L 111/71 Pulse Oximetry 100 98 98 Oxygen Delivery 09/24/24 08:00 Temperature Pulse Rate Respiratory Rate Blood Pressure Pulse Oximetry Oxygen Delivery Room Air Intake/Output Intake/Output: Intake & Output 09/21/24 09/22/24 09/23/24 09/24/24 23:59 23:59 23:59 23:59 Intake Total 1500 4330 1150 Output Total 200 900 Balance 1300 3430 1150 Meds/Results Medications: Active Medications Generic Name Dose Route Start Last Admin Trade Name Freq PRN Reason Stop Dose Admin Acetaminophen 500 mg 09/23/24 14:30 Acetaminophen 500 Mg Tablet PO Q6H PRN Pain Rated 1-3 Enoxaparin Sodium 40 mg 09/24/24 09:00 09/24/24 11:15 Enoxaparin 40 Mg/0.4 Ml Syringe SUB-Q Not Given DAILY [facility] Famotidine 20 mg 09/23/24 21:00 09/24/24 08:14 Famotidine 20 Mg Tablet PO 20 mg Q12HR FIDELIA Administration Fentanyl Citrate 25 mcg 09/23/24 14:30 Fentanyl Citrate Inj (*Crx) 100 Mcg/2 Ml Vial IV PUSH Q2H PRN Breakthrough Pain Rated 4-6 or NPO Fentanyl Citrate 50 mcg 09/23/24 14:30 Fentanyl Citrate Inj (*Crx) 100 Mcg/2 Ml Vial IV PUSH Q2H PRN Breakthrough Pain Rated 7-10 or NPO Ferrous Sulfate 325 mg 09/22/24 17:00 09/24/24 08:14 Ferrous Sulfate [address] PO 325 mg BID FIDELIA Administration Ibuprofen 800 mg in 200 mls @ 400 mls/hr 09/22/24 12:40 09/23/24 13:44 Caldolor 800 Mg/200 Ml IVPB Infused Q6H PRN Infusion Breakthrough Pain Rated 1-3 or NPO Ceftriaxone Sodium 1 gm in 50 mls @ 100 mls/hr 09/22/24 13:00 09/23/24 13:09 Rocephin 1 Gm/Ns 50 Ml IVPB Infused Q24H [facility] Infusion Metronidazole 500 mg in 100 mls @ 100 mls/hr 09/22/24 14:00 09/24/24 05:35 Flagyl 500 Mg/Iso Soln 100 Ml IVPB 100 mls/hr Q8H [facility] Administration Lorazepam 1 mg 09/22/24 12:50 Lorazepam Inj (*Crx) 2 Mg/Ml Vial IV PUSH Q6H PRN Anxiety Naloxone HCl 0.1 mg 09/23/24 14:30 Naloxone Hcl 0.4 Mg/Ml Vial IV PUSH Q2M PRN Opiate Reversal Oxycodone/Acetaminophen 1 tablet 09/23/24 14:30 Oxycodone/Acetaminophen (*Crx) 5-325 Mg Tablet PO Q4H PRN Pain Rated 7-10 Prochlorperazine Edisylate 10 mg 09/22/24 15:52 09/24/24 08:19 Prochlorperazine Edisylate 10 Mg/2 Ml Vial IV PUSH 10 mg Q6H PRN Administration Nausea And Vomiting Tramadol HCl 50 mg 09/23/24 14:30 09/24/24 07:04 Tramadol Hcl (*Crx) 50 Mg Tablet PO 50 mg Q4H PRN Administration Pain Rated 4-6 Trazodone HCl 50 mg 09/22/24 12:50 09/22/24 20:57 Trazodone Hcl 50 Mg Tablet PO 50 mg HS PRN Administration Insomnia Radiology Results: ITS Impressions Catheter Placement CT 09/22/24 15:40 IMPRESSION: 1. Successful CT-guided left lower quadrant abscess drainage catheter placement. 2. 8 mL fluid was sent for aerobic and anaerobic cultures. 3. The catheter will be managed by Dr. Lang. Labs Labs: Laboratory Results - last 24 hr 09/24/24 07:03 WBC 4.7 RBC 2.66 L Hgb 6.9 L* Hct 23.0 L MCV 86.5 MCH 25.9 L MCHC 30.0 L RDW 15.2 H Plt Count 373 MPV 8.8 Immature Gran % (Auto) 0.4 Neut % (Auto) 65.2 Lymph % (Auto) 24.4 Winston % (Auto) 9.0 H Eos % (Auto) 0.6 Baso % (Auto) 0.4 Lymph # (Auto) 1.14 Winston # (Auto) 0.4 Eos # (Auto) 0.0 Baso # (Auto) 0.0 Abs Immat Gran (auto) 0.02 Absolute Neuts (auto) 3.0 Absolute Nucleated RBC 0.000 Nucleated RBC % 0.0 Sodium 140 Potassium 3.5 Chloride 106 Carbon Dioxide 26 Anion Gap 8 BUN 4 L Creatinine 0.50 L Estim Creat Clear Calc Not Reportable Estimated GFR > 60 Glucose 94 Calcium 8.2 L This report may have been done utilizing a voice recognition system. Attempts have been made to correct errors. However, there may be uncorrected grammatical,spelling, and recognition errors present. Report Initialized date/time: Barbie Smith APN 09/24/241129 Electronically signed by: Barbie Smith APN 09/24/241129
--- OUTSIDE RECORDS SUMMARY | 2024-12-03 22:59 | XMS_ITS | Continuity of Care Document ---
Author Organization [facility] Address [address] [place] [address] Care Team Providers Care Designer Architect Name Role Phone MD Mariama Arias Emergency Provider [phone] UNKNOWN, DOCTOR Primary Care Provider Unavail able MD Aguilar Lang Other Provider [phone] MD Teodoro Dye Admit Provider YOVANNY Eric Attending Provider NAVIN Smith Other Provider YOVANNY Brizuela Other Provider MD Marco A Alvarado Other Provider ROSEMARIE Henderson Other Provider DO Juancarlos Aguilar Other Provider [phone] MD Aguilar Lang Attending Provider PHYSICIAN NOT ON STAFF, NONSTAFF Primary Care Provider Unavailable MD Aguilar Lang Admit Provider [phone] Care Teams Patient Care Team Team Status: Active Member Role Status Dates NONSTAFF PHYSICIAN NOT [...] Active Nancy Henderson PA-C Other Provider Active Juancarlos Aguilar DO Other Provider Active Visit Care Team Team Status: Inactive Member Role Status Dates NONSTAFF PHYSICIAN NOT ON STAFF Primary Care Provid er Active Aguilar Lang MD Admit Provider, Attending Provide r Active Chief Complaint and Reason for Visit Chief Complaint Perforated Diverticu litis Diverticulitis Diverticulitis Diverticulitis w/abscess Reason for Visit Constipation Constipation Diverticulitis of large intestine with abscess Dyschezia Anemia Allergies, Adverse Reactions, Alerts No known allergies Social History Smoking Status Status Start Date End Date Date of Observa tion Smokes tobacco daily (finding) September 01, 2024 9:37pm Observation Status Observation Response Date of Response Do You Feel Safe in your Home? Yes O ct2023 9:37pm Has Lack of Trans Kept You F rom Med Appts or Getting Meds? No September 01, 2024 9:37pm In Past 12 Months, Were You Worried Your Food Would Run Out? Never True September 01, 2024 9:3 7pm What is Your Housing Situati on Today? I Have Housing September 01, 2024 9:37pm Gender Identity (if Verbaliz ed by the Patient) Female January 17, 2024 2:40pm Are You Worried That in Next 2 Mo, You Won't Have Housing? No September 01, 2024 9:37pm Do You Have Trouble Paying Y our Heating Or Electricity Bill? Yes September 01, 2024 9:37pm Do You Have Trouble Paying F or Medicines? No September 01, 2024 9:37pm Are You Currently Unemployed and Looking for Work? Yes September 01, 2024 9:37pm Highest Level of Education Completed High School Diploma/GED September 01, 2024 9:37pm Do You Have Trouble With Childcare/Care of a Family Member? No September 01, 2024 9 :37pm alcohol intake never September 01 9:37pm Substance use type marijuana September 01, 2024 9:37pm other September 01 9:37pm Additional Data Assigned Sex Female Problems Active Problems Medical Problem Onset Date Status Anemia Active Dyschezia Active Constipation Active Diverticulitis of large intestine with abscess Active Inactive/Resolved Problems Medical Problem Onset Date Status UTI (urinary tract infection) Re solved Diverticulitis of intestine with perforation Resolved LLQ abdominal mass Resolved Medications Medication Status Dose Units Route Directions Qty Days St art Date End Date Instructions Acetaminophen Active 1000 MG PO Q6H Oct 2023 12:00am Amoxicillin-P ot Clavulanate Active 1 TABLET PO Q12H 10 September 03, 2024 12:00am Mineral Oil Active 15 ML PO TWICE A DAY 473 September 03, 2024 12:00am Ketorolac Active 10 MG PO Q6H 16 4 September 03, 2024 12:00am Oxycodone-Robel taminophen Active 0.5 - 1 TABLET PO Q6H 20 September 03, 2024 Psyllium Active 1 TBSP PO TWICE A DAY 300 Oct 2023 12:00am mix into at least 8 oz of water or juice before administering Immunizations Immunization Event Date Not Given Reason Dose Number Jukebox Route Driver Lot Number Vaccine Information Statement (VIS) Detail [...] Procedures Procedure Date Performed Status Blood Culture August 07, 2024 completed Urine Culture August 07, 2024 completed Blood Culture September 02, 2024 active Comp Tomography Guide Abscess Cath Place September 02, 2024 8:30am completed Relevant Diagnostic Tests and/or Laboratory Data Laboratory Results Test Date/Time Result Interpretation Reference Range Result Comment Performing Site White Blood Count August 13, 2024 6:17am 5.5 K/mm3 4.5-10.0 [facility] [id number] [address] [place] [address] 67479 White Blood Count September 01, 2024 12:20pm 6.7 K/mm3 4.5-10.0 [facility] [id number] [address] [place] [address] 81864 White Blood Count September 05, 2024 6:39am 10.3 K/mm3 Above high normal 4.5-10.0 [facility] [id number] [address] [place] [address] 31078 Red Blood Count August 13, 2024 6:17am 3.22 M/mm3 Below low normal 4.2-5.4 [facility] [id number] [address] [place] [address] 72118 Red Blood Count September 01, 2024 12:20pm 3.71 M/mm3 Below low normal 4.2-5.4 [facility] [id number] [address] [place] [address] 29205 Red Blood Count September 05, 2024 6:39am 3.03 M/mm3 Below low normal 4.2-5.4 [facility] [id number] [address] [place] [address] 60819 Hemoglobin August 13, 2024 6:17am 9.5 g/dL Below low normal 12.0-15.0 [facility] [id number] [address] [place] [address] 96344 Hemoglobin September 01, 2024 12:20pm 10.3 g/dL Below low normal 12.0-15.0 [facility] [id number] [address] [place] [address] 38453 Hemoglobin September 05, 2024 6:39am 8.5 g/dL Below low normal 12.0-15.0 [facility] [id number] [address] [place] [address] 73836 Hematocrit August 13, 2024 6:17am 29.5 % Below low normal 37.0-47.0 [facility] [id number] [address] [place] [address] 99848 Hematocrit September 01, 2024 12:20pm 33.2 % Below low normal 37.0-47.0 [facility] [id number] [address] [place] [address] 29617 Hematocrit September 05, 2024 6:39am 26.6 % Below low normal 37.0-47.0 [facility] [id number] [address] [place] [address] 49649 Mean Corpuscular Volume August 13, 2024 6:17am 91.6 fL 80-100 [facility] [id number] [address] [place] [address] 89860 Mean Corpuscular Volume September 01, 2024 12:20pm 89.5 fL 80-100 [facility] [id number] [address] [place] [address] 37333 Mean Corpuscular Volume September 05, 2024 6:39am 87.8 fL 80-100 [facility] [id number] [address] [place] [address] 26175 Mean Corpuscular Hemoglobin August 13, 2024 6:17am 29.5 pg 26-34 [facility] [id number] [address] [place] [address] 03899 Mean Corpuscular Hemoglobin September 01, 2024 12:20pm 27.8 pg 26-34 [facility] [id number] [address] [place] [address] 86512 Mean Corpuscular Hemoglobin September 05, 2024 6:39am 28.1 pg 26-34 [facility] [id number] [address] [place] [address] 82154 Mean Corpuscular Hemoglobin Concent August 13, 2024 6:17am 32.2 g/dL 32-36 [facility] [id number] [address] [place] [address] 42822 Mean Corpuscular Hemoglobin Concent September 01, 2024 12:20pm 31.0 g/dL Below low normal -36 [facility] [id number] [address] [place] [address] 35244 Mean Corpuscular Hemoglobin Concent September 05, 2024 6:39am 32.0 g/dL 32-36 [facility] [id number] [address] [place] [address] 69459 Red Cell Distribution Width August 13, 2024 6:17am 13.6 % 11.5-14.5 [facility] [id number] [address] [place] [address] 01795 Red Cell Distribution Width September 01, 2024 12:20pm 14.3 % 11.5-14.5 [facility] [id number] [address] [place] [address] 64845 Red Cell Distribution Width September 05, 2024 6:39am 14.4 % 11.5-14.5 [facility] [id number] [address] [place] [address] 19036 Platelet Count August 13, 2024 6:17am 249 k/mm3 150-375 [facility] [id number] [address] [place] [address] 24731 Platelet Count September 01, 2024 12:20pm 437 k/mm3 Above high normal 150-375 Delta: 249 on 08/13/24-616 [facility] [id number] [address] [address] Platelet Count September 05, 2024 6:39am 325 k/mm3 150-375 [facility] [id number] [address] [place] [address] 31228 Mean Platelet Volume August 13, 2024 6:17am 10.5 fL Above high normal 7.4-10.4 [facility] [id number] [address] [place] [address] 45653 Mean Platelet Volume September 01, 2024 12:20pm 9.3 fL 7.4-10.4 [facility] [id number] [address] [place] [address] 50667 Mean Platelet Volume September 05, 2024 6:39am 9.6 fL 7.4-10.4 [facility] [id number] [address] [address] Nucleated Red Blood Cells % August 13, 2024 6:17am 0.0 % 0.0-0.2 [facility] [id number] [address] [place] [address] 24239 Nucleated Red Blood Cells % September 01, 2024 12:20pm 0.0 % 0.0-0.2 [facility] [id number] [address] [place] [address] 00145 Immature Granulocyte % (Auto) August 13, 2024 6:17am 0.2 % 0-0.5 [facility] [id number] [address] [place] [address] 30105 Immature Granulocyte % (Auto) September 01, 2024 12:20pm 0.3 % 0-0.5 [facility] [id number] [address] [place] [address] 63971 Neutrophils (%) (Auto) August 13, 2024 6:17am 64.4 % 45.5-73.1 [facility] [id number] [address] [place] [address] 94125 Neutrophils (%) (Auto) September 01, 2024 12:20pm 72.6 % 45.5-73.1 [facility] [id number] [address] [place] [address] 41383 Lymphocytes (%) (Auto) August 13, 2024 6:17am 27.1 % 18.3-44.2 [facility] [id number] [address] [place] [address] 70294 Lymphocytes (%) (Auto) September 01, 2024 12:20pm 19.7 % 18.3-44.2 [facility] [id number] [address] [place] [address] 69569 Monocytes (%) (Auto) August 13, 2024 6:17am 6.8 % 2.6-8.5 [facility] [id number] [address] [place] [address] 65163 Monocytes (%) (Auto) September 01, 2024 12:20pm 6.3 % 2.6-8.5 [facility] [id number] [address] [place] [address] 60530 Eosinophils (%) (Auto) August 13, 2024 6:17am 1.1 % 0-4.4 [facility] [id number] [address] [place] [address] 48907 Eosinophils (%) (Auto) September 01, 2024 12:20pm 0.7 % 0-4.4 [facility] [id number] [address] [place] [address] 17022 Basophils (%) (Auto) August 13, 2024 6:17am 0.4 % 0.2-1.2 [facility] [id number] [address] [place] [address] 68305 Basophils (%) (Auto) September 01, 2024 12:20pm 0.4 % 0.2-1.2 [facility] [id number] [address] [place] [address] 69435 Nucleated RBC Absolute Count (auto) August 13, 2024 6:17am 0.000 K/mm3 0.0-0.012 [facility] [id number] [address] [place] [address] 19708 Nucleated RBC Absolute Count (auto) September 01, 2024 12:20pm 0.000 K/mm3 0.0-0.012 [facility] [id number] [address] [place] [address] 68916 Absolute Immature Granulocyte (auto August 13, 2024 6:17am 0.01 K/mm3 0.00-0.031 [facility] [id number] [address] [place] [address] 14871 Absolute Immature Granulocyte (auto September 01, 2024 12:20pm 0.02 K/mm3 0.00-0.031 [facility] [id number] [address] [place] [address] 93643 Absolute Neutrophils (auto) August 13, 2024 6:17am 3.5 K/mm3 1.3-6.7 [facility] [id number] [address] [place] [address] 07220 Absolute Neutrophils (auto) September 01, 2024 12:20pm 4.9 K/mm3 1.3-6.7 [facility] [id number] [address] [place] [address] 20079 Lymphocytes # (Auto) August 13, 2024 6:17am 1.48 K/mm3 0.9-3.2 [facility] [id number] [address] [place] [address] 36896 Lymphocytes # (Auto) September 01, 2024 12:20pm 1.32 K/mm3 0.9-3.2 [facility] [id number] [address] [place] [address] Monocytes # (Auto) August 13, 2024 6:17am 0.4 K/mm3 0.1-0.6 [facility] [id number] [address] [place] [address] Monocytes # (Auto) September 01, 2024 12:20pm 0.4 K/mm3 0.1-0.6 [facility] [id number] [address] [place] [address] Eosinophils # (Auto) August 13, 2024 6:17am 0.1 K/mm3 0-0.3 [facility] [id number] [address] [place] [address] Eosinophils # (Auto) September 01, 2024 12:20pm 0.1 K/mm3 0-0.3 [facility] [id number] [address] [place] [address] Basophils # (Auto) August 13, 2024 6:17am 0.0 K/mm3 0.0-0.1 [facility] [id number] [address] [place] [address] Basophils # (Auto) September 01, 2024 12:20pm 0.0 K/mm3 0.0-0.1 [facility] [id number] [address] [place] [address] Prothrombin Time September 02, 2024 8:26am 13.5 s 11.1-14.7 [facility] [id number] [address] [place] [address] Prothromb Time International Ratio September 02, 2024 8:26am 1.0 INR Indication----- ---- --------0.9 - 1.1 Patients not on anticoagulant therapy.2.0 - 3.0 Routine therapy.2.5 - 3.5 Recurrent myocardial infarction or mechanical prosthetic valves. [facility] [id number] [address] [place] [address] Activated Partial Thromboplast Time September 02, 2024 8:26am 28.7 s 22.3-36.8 [facility] [id number] [address] [place], [place] [address] Urine Color August 07, 2024 1:03pm Dark yellow Yellow [facility] [id number] [address] [address] Urine Appearance August 07, 2024 1:03pm Cloudy Above high normal Clear [facility] [id number] [address] [address] Urine pH August 07, 2024 1:03pm 5.5 5.0-9.0 [facility] [id number] [address] [address]017 Urine Specific [place] August 07, 2024 1:03pm 1.030 1.001-1.03 5 [facility] [id number] [address] 11589 Urine Protein August 07, 2024 1:03pm 1+ mg/dL Above high normal Negative [facility] [id number] [address] [address] Urine Glucose (UA) August 07, 2024 1:03pm Negative mg/dL Negative [facility] [id number] [address] [address] Urine Ketones August 07, 2024 1:03pm 4+ mg/dL Above high normal Negative [facility] [id number] [address] [address] Urine Blood (Manual) August 07, 2024 1:03pm 1+ Above high normal Negative [facility] [id number] [address] [address] Urine Nitrate August 07, 2024 1:03pm Positive Above high normal Negative [facility] [id number] [address] [address]245 Urine Bilirubin August 07, 2024 1:03pm Negative Negative [facility] [id number] [address] 63952 Urine Urobilinogen August 07, 2024 1:03pm 1.0 mg/dL <2.0 [facility] [id number] [address] [address] Urine Leukocyte Esterase (Reflex) August 07, 2024 1:03pm 1+ ROSI/UL Above high normal Negative [facility] [id number] [address] [address]253 Urine RBC August 07, 2024 1:03pm 6-10 [HPF] Above high normal 0-2 [facility] [id number] [address] [address] Urine WBC August 07, 2024 1:03pm 21-50 [HPF] Above high normal 0-3 [facility] [id number] [address] [address] Urine Squamous Epithelial Cells August 07, 2024 1:03pm Many [HPF] Above high normal Few [facility] [id number] [address] 93565 Urine Calcium Oxalate Crystals August 07, 2024 1:03pm Present [HPF] None [facility] [id number] [address] [address]357 Urine Bacteria August 07, 2024 1:03pm 4+ [HPF] Above high normal [facility] [id number] [address] [address] Urine Mucus August 07, 2024 1:03pm Present [LPF] [facility] [id number] [address] [address] Sodium Level August 13, 2024 6:17am 135 mmol/L Below low normal 137-145 [facility] [id number] [address] 46583 Sodium Level September 01, 2024 12:20pm 137 mmol/L 137-145 [facility] [id number] [address] [address]89 Sodium Level September 05, 2024 6:39am 136 mmol/L Below low normal 137-145 [facility] [id number] [address] 8[address] Potassium Level August 13, 2024 6:17am 3.9 mmol/L 3.4-5.0 [facility] [id number] [address] [address] Potassium Level September 01, 2024 12:20pm 4.4 mmol/L 3.4-5.0 [facility] [id number] [address] [address] Potassium Level September 05, 2024 6:39am 3.8 mmol/L 3.4-5.0 [facility] [id number] [address] [address]873 Chloride Level August 13, 2024 6:17am 104 mmol/L [address] [facility] [id number] [facility] [address] [address] Chloride Level September 01, 2024 12:20pm 101 mmol/L 98 [facility] [id number] [address] [place] [address] 11067 Chloride Level September 05, 2024 6:39am 102 mmol/L [facility] [id number] [address] [place] [address] 37111 Carbon Dioxide Level August 13, 2024 6:17am 22 mmol/L [facility] [id number] [address] [place] [address] 18625 Carbon Dioxide Level September 01, 2024 12:20pm 26 mmol/L [facility] [id number] [address] [place] [address] 17749 Carbon Dioxide Level September 05, 2024 6:39am 25 mmol/L [facility] [id number] [address] [place] [address] 91271 Anion Gap August 13, 2024 6:17am 9 mmol/L 03-07 [facility] [id number] [address] [place] [address] 29032 Anion Gap September 01, 2024 12:20pm 10 mmol/L 03-07 [facility] [id number] [address] [place] [address] 91952 Anion Gap September 05, 2024 6:39am 9 mmol/L 03-07 [facility] [id number] [address] [address] Blood Urea Nitrogen August 13, 2024 6:17am 9 mg/dL 06-11 Delta: 3 on 08/12/[address] [facility] [id number] [address] [address] Blood Urea Nitrogen September 01, 2024 12:20pm 8 mg/dL 06-11 [facility] [id number] [address] 20[address] Blood Urea Nitrogen September 05, 2024 6:39am 4 mg/dL Below low normal 06-11 [facility] [id number] [address] [address] Creatinine August 13, 2024 6:17am 0.60 mg/dL Below low normal 0.7-1.0 [facility] [id number] [address] [address] Creatinine September 01, 2024 12:20pm 0.70 mg/dL 0.7-1.0 [facility] [id number] [address] [address] Creatinine September 05, 2024 6:39am 0.60 mg/dL Below low normal 0.7-1.0 [facility] [id number] [address] [place] [address] 97765 Estimat Glomerular Filtration Rate August 13, 2024 6:17am > 60 >59 > OR = 60 ml/min/1.73 square metersThe MDRD formula used to calculate the eGFR result has not been validated in patients > 70 years of age. [facility] [id number] [address] [place] [address] 93186 Estimat Glomerular Filtration Rate September 01, 2024 12:20pm > 60 >59 > OR = 60 ml/min/1.73 square metersThe MDRD formula used to calculate the eGFR result has not been validated in patients > 70 years of age. [facility] [id number] [address] [place] [address] 83368 Estimat Glomerular Filtration Rate September 05, 2024 6:39am > 60 >59 > OR = 60 ml/min/1.73 square metersThe MDRD formula used to calculate the eGFR result has not been validated in patients > 70 years of age. [facility] [id number] [address] [place] [address] 00148 Estimated Creatinine Clearance Calc August 13, 2024 6:17am 90 mL/min For use in prescription drug dose determination only. Reference ranges have not been establishe for this calculation. [facility] [id number] [address] [place] [address] 29522 Estimated Creatinine Clearance Calc September 01, 2024 12:20pm Not Reportable [facility] [id number] [address] [place] [address] 06236 Estimated Creatinine Clearance Calc September 05, 2024 6:39am 90 mL/min For use in prescription drug dose determination only. Reference ranges have not been establishe for this calculation. [facility] [id number] [address] [place] [address] 30967 Glucose Level August 13, 2024 6:17am 103 mg/dL 65-110 [facility] [id number] [address] [place] [address] 60713 Glucose Level September 01, 2024 12:20pm 91 mg/dL 65-110 [facility] [id number] [address] [place] [address] 69079 Glucose Level September 05, 2024 6:39am 89 mg/dL 65-110 [facility] [id number] [address] [address] Calcium Level August 13, 2024 6:17am 8.6 mg/dL 8.4-10.2 [facility] [id number] [address] [address] Calcium Level September 01, 2024 12:20pm 9.1 mg/dL 8.4-10.2 [facility] [id number] [address] [address] Calcium Level September 05, 2024 6:39am 8.3 mg/dL Below low normal 8.4-10.2 [facility] [id number] [address] [address] Total Bilirubin August 13, 2024 6:17am 0.2 mg/dL 0.2-1.3 [facility] [id number] [address] [address] Aspartate Amino Transf (AST/SGOT) August 13, 2024 6:17am 16 U/L 14-36 [facility] [id number] [address] [address] Alanine Aminotransfer ase (ALT/SGPT) August 13, 2024 6:17am 8 U/L 6-35 [facility] [id number] [address] [address] C-Reactive Protein August 12, 2024 5:42am < 0.5 mg/dL <1.1 [facility] [id number] [address] [address] Total Protein August 13, 2024 6:17am 6.0 g/dL Below low normal 6.3-8.2 [facility] [id number] [address] [address] Albumin August 13, 2024 6:17am 3.5 g/dL 3.5-5.1 [facility] [id number] [address] [address] Alkaline Phosphatase August 13, 2024 6:17am 47 U/L 38-126 [facility] [id number] [address] [address] Lipase August 07, 2024 1:03pm 25 U/L 23-300 [facility] [id number] [address] [place] [address] Carcinoembryo anuel Antigen August 08, 2024 6:01pm 5.5 ng/mL Above high normal 0.0-3.[address] [employer] Driver: Next audienceMeth od: ImmunoassayCEA results determined by assays using different manufacturers or methods may not be comparable. [facility] [id number] [address] [place] [id number] Bedside Urine HCG, Qualitative August 07, 2024 1:00pm Negative Negative Negative Telcor POC Urine Casts August 07, 2024 1:03pm 0-2 [facility] [id number] [address] [place] [address] Microbiology Results Procedure Source Result Collection Date/Time Result Date/Time Result Comment Performing Site Blood Culture Blood August 07, 2024 4:19pm August 13, 2024 2:58am [facility] Urine Clean Catch Escherichia Coli August 07, 2024 1:03pm August 09, 2024 7:58am [facility] Reports Author Ranjeet [facility] September 02, 2024 10:48am Report Date/Time September 02, 2024 10 :50am [address] [address] [address] Scan Report Signed Patient: Libby Maldonado : 1990 MR#: [id number] Age: 33 Acct:[id number] Loc: [id number] 300-01 ADM Date: 09/01/[address]: Aguilar Lang M.D. Ordering Physician: Aguilar Lang MD Date of Service: 09/02/24 Procedure(s): CT guide absc cath placement Accession Number(s): [id number] cc: Aguilar Lang MD~ EXAMINATION: CT guide absc cath placement DATE: 09/02/2024 10:04 INDICATION: Perisigmoid abscess. TECHNIQUE: The procedure including the risks, benefits, and alternatives was discussed with the patient. Risks discussed included bleeding and infection. Thepatient understood the risks and benefits and agreed to proceed. The skin overlying the abdomen was prepped and draped in usual sterile fashion. Anesthetic was administered with 1% lidocaine subcutaneously. Moderate sedation was achieved with 2 mg Versed IV and 75 mg IV. An 18 gauge trochar needle was inserted into the perisigmoid abscess with CT guidance. The needle was exchangedover a wire for 5 Colombian and 7 Colombian dilators and then for an 8.5 Colombian pigtail catheter. The catheter was stitched to the skin, and a sterile dressing was applied. The mA was adjusted according to patient size. Iterative reconstruction technique was employed. The dose-length product was 186.40 mGy-cm. There were no immediate complications. FINDINGS: CT images demonstrate the catheter within the perisigmoid abscess. IMPRESSION: 1. Successful CT-guided perisigmoid abscess drainage. Reviewed, dictated and finalized at location A. Dictated By: Ranjeet Butcher MD 09/02/24 1046 Signed By: <Electronically signed by Ranjeet Butcher MD in OV> 09/02/24 1048 Vital Signs Vital Reading Result Reference Range Collection Date/Time Height 62 [in_i] August 07, 2024 9:10pm Weight 53.00 kg August 07, 2024 9:10pm Body Temperature 97.9 [degF] 97.6-99.6 July 272023 6:00am Heart Rate 79 /min 60-100 August 13, 2024 6:00am Respiratory rate 18 /min 12-July 272023 6:00am Oxygen saturation by Pulse oximetry 100 % 90-100 August 13, 2024 6:00am BP Systolic 96 mm[Hg] 100-140 August 13, 2024 6:00am BP Diastolic 48 mm[Hg] 60-90 August 13, 2024 6:00am BMI (Body Mass Index) 21.3 kg/m2 2023 9:10pm Height 62 [in_i] September 01 9:26am Weight 50.34 kg September 01 9:26am Body Temperature 97.3 [degF] 97.6-99.6 August 9:26am Heart Rate 76 /min 60-100 October 7th, 20 24 9:26am Respiratory rate 18 /min -August 9:26am [...] 97.6-99.6 August 5:25am Heart Rate 92 /min -100 September 05, 2 024 5:25am Respiratory rate 18 /min -August 5:25am Oxygen saturation by Pulse oximetry 97 % 90-100 September 05, 2024 5 :25am BP Systolic 105 mm[Hg] 100-140 September 05, 2 024 5:25am BP Diastolic 65 mm[Hg] 60-90 September 05, 2 024 5:25am BMI (Body Mass Index) 20.2 kg/m2 Octobe r 2023 12:36pm Inhaled oxygen flow rate 2 L/min Aug janet 2023 9:45am Advance Directives Advance Directive Response Recorded Date/ Time Current Advance Directive No 2023 6:33pm Current Advance Directive No Octobe r 2023 9:37pm Insurance Providers Guarantor Libby Maldonado Address [address] [place] [phone] Contact Info. Home Phone: Payer Policy Id Coverage Id Subscriber's Name Subscriber Id Effective Date Expiration Date [place] [id number] Libby Maldonado [id number] February Encounters Encounter Location(s) Arrival/Admit Date Discharge /Depart Date Provider(s) Discharged Inpatient [place] [address] Medical August 07, 2024 6:52pm August 13, 2024 12:21pm Alysia Eric APRN Departed Physician/Provi frankie Office Visit [facility] September 01, 2024 9:05am September 01, 2024 9:57am Aguilar Lang MD Departed Clinical [facility] September 01, 2024 11:44am September 01, 2024 11:45am Aguilar Lang MD Discharged Inpatient [facility] 3 Med Surg September 01, 2024 9:54pm September 05, 2024 12:45pm Aguilar Lang MD Recent Diagnosis Onset Date Constipation Constipation Diverticulitis of large intestine with a bscess Dyschezia Anemia Functional Status Observation Response Date Recorded Functional capacity on discharge independent amb ulation August 13, 2024 9:31am Functional capacity on discharge independent amb ulation September 05, 2024 10:36am Mental Status Observation Response Date Recorded patient oriented x3 Yes August 132023 10:07am patient oriented x3 Yes August 1:01pm Assessments Diagnosis Onset Date Resolution Status Constipation acute Constipation acute Diverticulitis of large intestine with abscess acute Dyschezia acute Anemia chronic Plan of Treatment Author Natalie Mills [facility] Authored September 01, 2024 10 :10am Libby is still having concer ns after a hospital admission from 08/07/24-08/13/24. Patient was instructed to start taking Psyllium husk Metamucil BID and stool softeners to help with constipation. I will order a STAT CT abdomen/pelvis with contrast, CBC and BMP to be done today. Will call patient with results and plan for continued care. Future Tests Future scheduled test information is unavailable Pending Tests Test Name Ordered Date Scheduled Date Code Status September 01, 2024 5:38pm September 01, 2024 5:38pm Future Visits Future appointment information is unavailable Referrals to Other Providers Reason for Referral Referral Start Date Provider Provider Contact Information Provider Address Call Dr. Santos office to make appointment. Aguilar Lang MD Work Phone: [address] [place] [address] Santos office to make appointment Aguilar Lang MD Work Phone: [address] [place] [address] Future Procedures Procedure Name Ordered Date Scheduled Date Admit as Inpatient September 01, 2024 5:38pm Octo 2023 5:38pm Consult to Dietitian August 11, 2024 9:55am August 11, 2024 12:00am Discharge Order August 13, 2024 12:01pm Sep jen 2023 12:01pm Placement to Observation August 07, [...] (GEN) Constipation (AC) Constipation (GEN) Antibiotic Form Goals Acute Goals Author Authored Date Verbalizes/Demonstrates Understanding *Demonstrates understanding of teaching [facility] August 13, 2024 12:21pm Participate in Discharge Carlos nning In order to achieve this outcome, the patient/ and or family will: * assist in identification of DME needs * assist in identification of community resource needs * assist in identification of appropriate discharge destination [facility] August 13, 2024 12:21pm Develop pain management prog sasmon In order to achieve this outcome the patient will: * Use the pain scale appropriately * Identify options for pain control - Analgesics - Narcotics - Non-medication measures [facility] August 13, 2024 12:21pm Increase knowledge regarding pain mgmt *Demonstrates understanding of teaching [facility] August 13, 2024 12:21pm Increase knowledge - smoking cessation Pt will verbalize understanding of smoking cessation resources [facility] August 13, 2024 12:21pm Improved infection * Maintains vital signs WNL * Evidences no purulent drainage from wounds, incisions, and tubes * Maintains optimal lab values [facility] August 13, 2024 12:21pm Exhibits optimal GI function *Exhibits adequate intake and output *Exhibits adequate nutritional status [facility] August 13, 2024 12:21pm Maintain fluid and electroly te balance * Understands adequate fluid intake * Maintains vital signs WNL * Maintains optimal electrolyte values * Maintains balanced intake and output * Maintains BUN and Hct WNL * Maintains normal skin turgor [facility] August 13, 2024 12:21pm Remain free of injury *Follows Safety Interventions [facility] August 10, 2024 2:09pm Verbalizes/Demonstrates Understanding *Demonstrates understanding of teaching [facility] September 05, 2024 1:33pm Participate in Discharge Cralos nning In order to achieve this outcome, the patient/ and or family will: * assist in identification of DME needs * assist in identification of community resource needs * assist in identification of appropriate discharge destination [facility] September 05, 2024 1:33pm Develop pain management prog samson In order to achieve this outcome the patient will: * Use the pain scale appropriately * Identify options for pain control - Analgesics - Narcotics - Non-medication measures [facility] September 05, 2024 1:33pm Increase knowledge regarding pain mgmt *Demonstrates understanding of teaching [facility] September 05, 2024 1:33pm Increase knowledge - smoking cessation Pt will verbalize understanding of smoking cessation resources [facility] September 05, 2024 1:33pm Improved infection * Maintains vital signs WNL * Evidences no purulent drainage from wounds, incisions, and tubes * Maintains optimal lab values [facility] September 05, 2024 1:33pm Demonstrate/Verbalize Minima l Pain Pt will Demonstrate/Verbalize Minimal Pain to Surgical Intervention 1. Assess Location, Duration, and Intensity of Pain 2. Change Position as Allowed 3. Use Therapeutic Communication 4. Relay Complaints of Pain to Primary Nurse [facility] September 05, 2024 1:33pm Improved nutritional status [facility] September 05, 2024 1:33pm Exhibits optimal GI function *Exhibits adequate intake and output *Exhibits adequate nutritional status [facility] September 05, 2024 1:33pm Hospital Discharge Instructions Additional Instructions low-fiber diet after discharge empty drain and record output in mL on a 24 hour basis. Bring the record of daily drain outputs in mL to office visit with Dr. Lang next week. Okay to bathe and shower stairs are okay take antibiotics until they are gone call for fever, vomiting, severe pain, drain miss function, or other significant change in condition. Discharge Summary Note Author Elham [facility] September 05, 2024 10:36am Note Date/Time September 05, 2024 1 0:36am [facility] [address] [place] [address] Discharge Summary Signed Patient: Libby Maldonado MR#: [id number] : 1990 Acct:[id number] Age: 33 ADM Date: 09/01/24 Loc: [id number] 300-[address]: Aguilar Lang M.D. cc: Aguilar Lang MD; PHYSICIAN NOT ON STAFF~ DS: Admitting Diagnosis Discharge Date 09/05/24 Admitting Diagnosis Complicated diverticulitis with abscess DS: Discharge Diagnosis Discharge Diagnosis (1) Diverticulitis of large intestine with abscess: Qualifiers: Diverticulitis bleeding: without bleeding Qualified Code(s): K57.20 - Diverticulitis of large intestine with perforation and abscess without bleeding Code(s): K57.20 - Diverticulitis of large intestine with perforation and abscess without bleeding Status: Acute Assessment and Plan: status post perc drainage, home with instructions for drain care, prescriptionsfor Augmentin and Percocet, follow-up with Dr. Lang 09/11 DS: Summary Hospital Course Reason for hospitalization: complicated diverticulitis with abscess Hospital Course: The patient is a 33-year-old female presenting to the hospital after outpatient CT scan was significant for complicated diverticulitis with abscess. The patient was admitted to the surgical service and started on IV antibiotics. Thefollowing day the patient had CT-guided percutaneous drainage of the abscess, please see full procedure note for details of that procedure. Postoperatively, the patient was transferred back to the surgical floor. Over the next few days,the patient slowly improved. At the time of her for discharge, her exam was largely benign and her pain was well controlled with p.o. analgesia. She will be sent home with continued antibiotics, Augmentin, and Percocet. She will be sent home with the drain and instructions for drain care. She will follow up with Dr. Lang on 09/11. Status at Discharge Functional status at discharge: independent ambulation Overall status at discharge: patient is progressing back to baseline Time Spent with Patient Time attestation: Total time spent providing and/or coordinating discharge services: Time spent: Less than 30 minutes Exam Const: General: cooperative, comfortable and no acute distress Resp: Auscultation: clear to auscultation bilaterally Cardio: Rate: regular rate Rhythm: regular rhythm GI: Inspection: normal to inspection, non-distended and no incisions GI Palp: Yes abdominal tenderness, Yes Soft to palpation and Yes Tenderness to palpation present (GI) Other: drain c moderate s/s output DS: Data Data Completed and Pending Labs on day of discharge: Labs from last 24 hours 09/05/24 06:39 WBC 10.3 H RBC 3.03 L Hgb 8.5 L Hct 26.6 L MCV 87.8 MCH 28.1 MCHC 32.0 RDW 14.4 Plt Count 325 MPV 9.6 Sodium 136 L Potassium 3.8 Chloride 102 Carbon Dioxide 25 Anion Gap 9 BUN 4 L Creatinine 0.60 L Estim Creat Clear Calc 90 Estimated GFR > 60 Glucose 89 Calcium 8.3 L Preliminary micro results at discharge 09/02/24 08:34 Blood Culture - Preliminary Blood 09/02/24 08:26 Blood Culture - Preliminary Blood Discharge Plan Discharge Attending physician on discharge: Aguilar Lang Discharging Clinician: Elham Vences Anticipated Discharge Date/Time: 09/05/24 12:00 Patient Disposition: Home, Self-Care Activity: may shower, no straining and as tolerated Diet: low fiber Wound Care Instructions: other - see discharge instructions Discharge Instructions: * low-fiber diet after discharge * empty drain and record output in mL on a 24 hour basis. Bring the record of daily drain outputs in mL to office visit with Dr. Lang next week. * Okay to bathe and shower * stairs are okay * take antibiotics until they are gone * call for fever, vomiting, severe pain, drain miss function, or other significant change in condition. Patient Instructions: Antibiotic Form Stand Alone Forms: General Discharge Information Follow-up/Referrals: Aguilar Lang MD [Physician] - 09/11/24 ( Call Dr. Santos office to make appointment) Discharge Medications: New oxycodone-acetaminophen 5-325 mg tablet 0.5 - 1 tablet PO Q6H PRN (Reason: pain) Qty: 20 0RF amoxicillin-pot clavulanate 875-125 mg tablet 1 tablet PO Q12H Qty: 10 0RF ketorolac 10 mg tablet 10 mg PO Q6H 4 Days Qty: 16 0RF mineral oil Oil 15 ml PO BID Qty: 473 0RF psyllium Powder 1 tbsp PO BID Qty: 300 2RF Rx Instructions: mix into at least 8 oz of water or juice before administering Discontinued acetaminophen 500 mg tablet 1,000 mg PO Q6H Patient Comments: Patient states that she take 4 to 5 at a time. Education provided. Date of admission: 09/01/24 21:54 Primary Care Provider: PHYSICIAN NOT ON STAFF,NONSTAFF Admitting Provider: Aguilar Lang Attending physician on admission: Aguilar Lang Condition: Improved This report may have been done utilizing a voice recognition system. Attempts have been made to correct errors. However, there may be uncorrected grammatical, spelling, and recognition errors present. Report Initialized date/time: Elham Vences MD 09/05/241035 Electronically signed by: Elham Vences MD 09/05/241035 History & Physical Note Author [facility] September 02, 2024 10:05am Note Date/Time September 02, 2024 9: 23am [place] [address] [place] [address] History & Physical Report Signed Patient: Libby Maldonado MR#: [id number] : 1990 Acct:[id number] Age: 33 ADM Date: 09/01/24 Loc: [id number] 300-[address]: Aguilar Lang M.D. cc: Aguilar Lang MD; PHYSICIAN NOT ON STAFF~ H&P: HPI History of Present Illness Date/Time: 09/02/24 09:17 Chief Complaint: Left lower quadrant pain Narrative: Patient is a 33-year-old woman who was in the hospital August 07 through August 13, 2024 for diverticulitis with small abscess. She was treated with IV antibiotics and discharged on 1 week of Levaquin and metronidazole. She finished these antibiotics but continues to have left lower quadrant pain. It waxes and wanes but is much worse with a bowel movement. She is quite tender there. In the hospital, she was noted to have an inflammatory mass in the left lower quadrant. She was also having some pain in the right lower quadrant. Bowel movements have been infrequent and her last previous bowel movement was 4 days ago. As mentioned, bowel movements are painful and this pain will typically last several hours afterward. She also has noted nausea and fatigue. A CBC, BMP, and CT scan of the abdomen and pelvis with contrast were ordered. CBC showed her to be anemic but she had a normal white blood cell count and no left shift. BMP was also normal. CT scan of the abdomen and pelvis showed thatthe left lower quadrant abscess had increased in size and was now a 5 cm abscess. After discussing this with Dr. Butcher, she is admitted now for IV antibiotics and percutaneous image guided drainage of the abscess to be done 09/02/2024. Review of Systems Review of Systems: All systems reviewed & are unremarkable except as noted in HPI and below (HPI and those items noted below) Constitutional: Constitutional: Reports as per HPI, Denies chills, Reports fatigue, Denies fever(s), Reports lethargy and Denies night sweats Cardiovascular: Cardiovascular: Denies chest pain, Denies diaphoresis, Denies dyspnea and Denies paroxysmal nocturnal dyspnea Respiratory: Respiratory: Denies chest congestion, Denies cough and Denies dyspnea Gastrointestinal: Gastrointestinal: Reports as per HPI, Reports constipation and Reports other (dyschezia) Integumentary/Breasts: Skin/Breast: Denies lesions and Denies rash PMFSH Past Medical History Medical History Anxiety Asthma in childhood, resolved Surgical History Surgical History H/O gynecological procedure Mirena IUD insertion Social History Social History Years smoked: 15 Smoking status: Current every day smoker Tobacco type: cigarettes Second hand tobacco smoke exposure: Yes Alcohol intake: never Substance use: never Substance use type: marijuana and other Other substance usage details: Vape Do You [...] Home Medications Medication Instructions Recorded Confirmed Type acetaminophen 500 mg tablet 1,000 mg PO Q6H 09/01/24 09/01/24 History Allergies Allergy/AdvReac Type Severity Reaction Status Date / Time No Known Allergies Allergy Verified 09/01/24 09:15 Vital Signs Vital Signs - 24 hr 09/01/24 21:39 09/01/24 21:54 09/01/24 22:09 Temperature 37.7 C H 37.2 C 37.3 C Pulse Rate 89 86 78 Respiratory Rate 14 14 14 Blood Pressure 113/63 106/60 103/69 Pulse Oximetry 98 100 98 Oxygen Delivery 09/01/24 21:37 09/02/24 03:20 09/02/24 07:39 Temperature 37.2 C 35.9 C L Pulse Rate 79 73 Respiratory Rate 16 18 Blood Pressure 110/64 102/60 Pulse Oximetry 98 98 Oxygen Delivery Room Air Exam Const: General: cooperative, comfortable, no acute distress, alert, awake and tired appearing Nutritional Appearance: thin Orientation/consciousness: patient oriented x3 and No confusion HENMT: Head: normocephalic and atraumatic Mouth: Yes Normal oral and palatal mucosa present Eyes: Conjunctivae: conjunctivae normal Pupils: Equal, round and reactive pupils present EOM: EOMs intact bilaterally Neck: Neck: normal visual inspection, no lymphadenopathy and nontender Resp: Effort & Inspection: normal respiratory effort Auscultation: clear toauscultation bilaterally Cardio: Rate: regular rate Rhythm: regular rhythm Heart sounds: no gallops, no murmurs and no rubs GI: Inspection: normal to inspection, non-distended, scaphoid and no visible herniation GI Palp: Yes Soft to palpation, No Tenderness to palpation present(GI) (Exquisite tenderness left lower quadrant with mass), No Hepatomegaly present, No Splenomegaly present, Yes Palpable mass present (Tender mass left lower quadrant) and No Ascites present Auscultation: normal bowel sounds Skin: Lesions: no lesions Rashes: no rashes [...] clubbing, cyanosis or edema and edema Psych: Affect: normal affect Thought process: Normal thought process present Insight: Good insight present (Psych) H&P: Results Labs Labs: Short CBC 09/02/24 Range/Units 06:08 WBC 7.2 (4.5-10.0) K/mm3 Hgb 8.8 L (12.0-15.0) g/dL Hct 29.6 L (37.0-47.0) % Plt Count 377 H (150-375) k/mm3 BMP 09/02/24 06:08 Sodium 136 L Potassium 3.8 Chloride 106 Carbon Dioxide 24 BUN 9 Creatinine 0.60 L Glucose 96 [address]cium 8[address] scan - abdomen: Attestation: I personally reviewed and interpreted this imaging study as follows: (CT scan abdomen and pelvis 09/01/2024) My impression: Larger left lower quadrant abscess than on the 2 CT scans done in July. Radiologist's impression: FINDINGS: The visualized portions of the lung bases are clear without pneumonia or pleural effusion. The heart size is normal. No pericardial effusion. There are cysts in the liver measuring up to 4 mm. Calcifications in the liver are consistent with old granulomatous disease. The spleen, gallbladder, pancreas, adrenal glands, and kidneys are normal. There is an intrauterine device in expected position. There is fat stranding adjacent to the sigmoid colon with a 5.2 x 3.1 x 3.4 cm perisigmoid abscess. There are no dilated loops of bowel. Theappendix is normal. There are no pathologically enlarged lymph nodes. There is no free intraperitoneal fluid. There is mild lumbar spondylosis. IMPRESSION: 1. Sigmoid diverticulitis with worsened 5.2 x 3.1 x 3.4 cm perisigmoid abscess. Assessment and Plan Assessment and plan (1) Diverticulitis of intestine with perforation: Qualifiers: Diverticulitis bleeding: without bleeding Diverticulitis site: large intestine Qualified Code(s): K57.20 - Diverticulitis of large intestine with perforation and abscess without bleeding Code(s): K57.80 - Diverticulitis of intestine, part unspecified, with perforation and abscess without bleeding Status: Acute Assessment and Plan: Abscess is larger and is amenable to CT-guided drainage and placement of pigtailcatheter. Patient was admitted last night. Plan is to proceed with CT- guided drainage and catheter placement this morning. She was started on IV Zosyn antibiotics. Left lower quadrant mass is most likely abscess with associated inflamed sigmoid colon. (2) Constipation: Qualifiers: Constipation type: other constipation type Qualified Code(s): K59.09 - Other constipation Code(s): K59.00 - Constipation, unspecified Status: Acute Assessment and Plan: Most likely due to diverticulitis with abscess. Will treat with Metamucil. (3) Dyschezia: Code(s): K59.00 - Constipation, unspecified Status: Acute Assessment and Plan: This also likely to be due to abscess and diverticulitis. Start on Metamucil after abscess drainage. (4) Anemia: Qualifiers: Other causes of anemia: chronic disease, other Code(s): D64.9 - Anemia, unspecified Status: Acute Assessment and Plan: Likely due to chronic disease from longstanding diverticulitis and more recentlydiverticulitis with abscess. No indication for transfusion. Watch for now. This report may have been done utilizing a voice recognition system. Attempts have been made to correct errors. However, there may be uncorrected grammatical,spelling, and recognition errors present. Report Initialized date/time: Aguilar Lang MD 09/02/24922 Electronically signed by: Aguilar Lang MD 09/02/24 1005 Progress Note Author Ranjeet [facility] September 02, 2024 8:59am Note Date/Time September 02, 2024 8: 59am [facility] [address] [place], [place] [address] Sedation Report Signed Patient: Libby Maldonado MR#: [id number] : 1990 Acct:[id number] Age: 33 ADM Date: 09/01/24 Loc: [id number] 300-[address]: Aguilar Lang M.D. cc: Aguilar Lang MD; PHYSICIAN NOT ON STAFF~ Moderate Sedation Note-Pt Data Patient Data Diagnosis: Perisigmoid abscess. Present Complaint: Perisigmoid abscess. Procedure to be performed/Plan: CT-guided perisigmoid abscess drainage. Allergies Allergy/AdvReac Type Severity Reaction Status Date / Time No Known Allergies Allergy Verified 09/01/24 09:15 Home Medications Medication Instructions Recorded Confirmed Type acetaminophen 500 mg tablet 1,000 mg PO Q6H 09/01/24 09/01/24 History Current Medications: Active Medications Acetaminophen (Acetaminophen 500 Mg Tablet) 500 mg PO Q6H PRN PRN Reason: Mild Pain (1-3) or Fever Hydrocodone Bitart/Acetaminophen (Hydrocodone/Acetaminophen (*Crx) 7.5-325 Mg Tablet) 1 tab PO Q6H PRN PRN Reason: Pain Rated 7-10 Enoxaparin Sodium (Enoxaparin 40 Mg/0.4 Ml Syringe) 40 mg SUB-Q DAILY [facility] Famotidine (Famotidine 20 Mg/2 Ml Vial) 20 mg IV PUSH Q12HR [facility] Last Admin: 09/01/24 23:17 Dose: 20 mg Hydromorphone HCl (Hydromorphone Hcl Inj (*Crx) 1 Mg/Ml Syr) 1 mg IV PUSH Q2H PRN PRN Reason: Breakthrough Pain Rated 7-10 or NPO Last Admin: 09/01/24 23:10 Dose: 1 mg Hydromorphone HCl (Hydromorphone Hcl Inj (*Crx) 1 Mg/Ml Syr) 0.5 mg IV PUSH Q2HPRN PRN Reason: Breakthrough Pain Rated 4-6 or NPO Last Admin: 09/02/24 05:39 Dose: 0.5 mg Ibuprofen (Caldolor 800 Mg/200 Ml) 800 mg in 200 mls @ 400 mls/hr IVPB Q6H PRN PRN Reason: Breakthrough Pain Rated 1-3 or NPO Last Admin: 09/02/24 06:19 Dose: 350 mls/hr Lactated Ringer's (Lr - Lactated Ringers Iv) 1,000 mls @ 100 mls/hr IV CONT .Q10H [facility] Last Infusion: 09/02/24 06:19 Dose: 100 mls/hr Piperacillin/Tazobactam/Dextrose (Zosyn 3.375 Gm/Ns 50 Ml) 3.375 gm in 50 mls @100 mls/hr IVPB Q6H [facility] Last Infusion: 09/02/24 06:08 Dose: Infused Miscellaneous Information (Duplicate Prn Pain Scale With Oral Percocet Of Pain 7-10, Please Clarify) 1 each XX CLARIFY [facility] Stop: 10/02/24 00:00 Naloxone HCl (Naloxone Hcl 0.4 Mg/Ml Vial) 0.1 mg IV PUSH Q2M PRN PRN Reason: Opiate Reversal Ondansetron HCl (Ondansetron Inj 4 Mg/2 Ml Vial) 4 mg IV PUSH Q4H PRN PRN Reason: Nausea And Vomiting Last Admin: 09/02/24 05:40 Dose: 4 mg Oxycodone/Acetaminophen (Oxycodone/Acetaminophen (*Crx) 5-325 Mg Tablet) 1 tablet PO Q4H PRN PRN Reason: Pain Rated 4-6 Oxycodone/Acetaminophen (Oxycodone/Acetaminophen (*Crx) 10-325 Mg Tablet) 1 tabPO Q6H PRN PRN Reason: Pain Rated 7-10 Sedation/Anesthesia: No previous sedation/anesthesia problems (including family history). [facility] Past Medical History Medical History Anxiety Asthma in childhood, resolved Surgical History Surgical History H/O gynecological procedure Mirena IUD insertion Social History Social History Years smoked: 15 Smoking status: Current every day smoker Tobacco type: cigarettes Second hand tobacco smoke exposure: Yes Alcohol intake: never Substance use: never Substance use type: marijuana and other Other substance usage details: Vape Do You [...] Exam Physical Exam Pre Procedural Exam: Normal: Lungs, Heart Rate and Heart Rhythm and Variation: Appearance (Agitated.) and Abdomen (Left abdominal tenderness.) Hours since solid foods: 12 Hours since liquid intake: 12 Mallampati Classification: class II Internal Medicine - PN: Obj Da Vital Signs Vital Signs: Vital Signs - 24 hr 09/01/24 21:39 09/01/24 21:54 09/01/24 22:09 Temperature 37.7 C H 37.2 C 37.3 C Pulse Rate 89 86 78 Respiratory Rate 14 14 14 Blood Pressure 113/63 106/60 103/69 Pulse Oximetry 98 100 98 Oxygen Delivery 09/01/24 21:37 09/02/24 03:20 09/02/24 07:39 Temperature 37.2 C 35.9 C L Pulse Rate 79 73 Respiratory Rate 16 18 Blood Pressure 110/64 102/60 Pulse Oximetry 98 98 Oxygen Delivery Room Air Intake/Output Intake/Output: Intake & Output 08/30/24 08/31/24 09/01/24 09/02/24 23:59 23:59 23:59 23:59 Intake Total 50 888.3 Balance 50 888.3 Meds/Results Medications: Active Medications Generic Name Dose Route Start Last Admin Trade Name Freq PRN Reason Stop Dose Admin Acetaminophen 500 mg 09/02/24 07:10 Acetaminophen 500 Mg Tablet PO Q6H PRN Mild Pain (1-3) or Fever Hydrocodone Bitart/Acetaminophen 1 tab 09/02/24 07:13 Hydrocodone/Acetaminophen (*Crx) 7.5-325 Mg Tablet PO Q6H PRN Pain Rated 7-10 Enoxaparin Sodium 40 mg 09/02/24 09:00 Enoxaparin 40 Mg/0.4 Ml Syringe SUB-Q DAILY [facility] Famotidine 20 mg 09/01/24 22:15 09/01/24 23:17 Famotidine 20 Mg/2 Ml Vial IV PUSH 20 mg Q12HR [facility] Administration Hydromorphone HCl 1 mg 09/01/24 21:54 09/01/24 23:10 Hydromorphone Hcl Inj (*Crx) 1 Mg/Ml Syr IV PUSH 1 mg Q2H PRN Administration Breakthrough Pain Rated 7-10 or NPO Hydromorphone HCl 0.5 mg 09/01/24 21:54 09/02/24 05:39 Hydromorphone Hcl Inj (*Crx) 1 Mg/Ml Syr IV PUSH 0.5 mg Q2H PRN Administration Breakthrough Pain Rated 4-6 or NPO Ibuprofen 800 mg in 200 mls @ 400 mls/hr 09/01/24 21:54 09/02/24 06:19 Caldolor 800 Mg/200 Ml IVPB 350 mls/hr Q6H PRN Administration Breakthrough Pain Rated 1-3 or NPO Lactated Ringer's 1,000 mls @ 100 mls/hr 09/01/24 21:55 09/02/24 06:19 Lr - Lactated Ringers Iv IV CONT 100 mls/hr .Q10H [facility] Infusion Piperacillin/Tazobactam/Dextrose 3.375 gm in 50 mls @ 100 mls/hr 09/02/24 06:00 09/02/24 06:08 Zosyn 3.375 Gm/Ns 50 Ml IVPB Infused Q6H [facility] Infusion Miscellaneous Information 1 each 09/02/24 00:01 Duplicate Prn Pain Scale With Oral Percocet Of Pain 7-10, Please Clarify XX 10/02/24 00:00 CLARIFY [facility] Naloxone HCl 0.1 mg 09/01/24 21:54 Naloxone Hcl 0.4 Mg/Ml Vial IV PUSH Q2M PRN Opiate Reversal Ondansetron HCl 4 mg 09/01/24 21:54 09/02/24 05:40 Ondansetron Inj 4 Mg/2 Ml Vial IV PUSH 4 mg Q4H PRN Administration Nausea And Vomiting Oxycodone/Acetaminophen 1 tablet 09/02/24 07:14 Oxycodone/Acetaminophen (*Crx) 5-325 Mg Tablet PO Q4H PRN Pain Rated 4-6 Oxycodone/Acetaminophen 1 tab 09/02/24 07:15 Oxycodone/Acetaminophen (*Crx) 10-325 Mg Tablet PO Q6H PRN Pain Rated 7-10 Labs 09/02/24 06:08 09/02/24 06:08 Labs: Laboratory Results - last 24 hr 09/02/24 06:08 WBC 7.2 RBC 3.21 L Hgb 8.8 L Hct 29.6 L MCV 92.2 MCH 27.4 MCHC 29.7 L RDW 14.2 Plt Count 377 H MPV 10.3 Sodium 136 L Potassium 3.8 Chloride 106 Carbon Dioxide 24 Anion Gap 6 BUN 9 Creatinine 0.60 L Estim Creat Clear Calc 90 Estimated GFR > 60 Glucose 96 Calcium 8.0 L ASA Classification/Sedation ASA Classification/Sedation ASA Class: III Emergent: No Risks: Risks, benefits and alternatives explained and patient/family accepted plan for sedation. Patient re-evaluated immediately prior to sedation. This report may have been done utilizing a voice recognition system. Attempts have been made to correct errors. However, there may be uncorrected grammatical,spelling, and recognition errors present. Report Initialized date/time: Ranjeet Butcher MD 09/02/24858 Electronically signed by: Ranjeet Butcher MD 09/02/24858 Progress Note Author Aguilar [facility] September 03, 2024 11:37am Note Date/Time September 03, 2024 11 :37am [facility] [address] [place], [place] [id number] General Surgery Progress Note Signed Patient: Libby Maldonado MR#: [id number] : 1990 Acct:[id number] Age: 33 ADM Date: 09/01/24 Loc: [id number] 300-[address]: Aguilar Lang M.D. cc: ~ Progress Note: A&P Assessment and Plan (1) Diverticulitis of large intestine with abscess: Qualifiers: Diverticulitis bleeding: without bleeding Qualified Code(s): K57.20 - Diverticulitis of large intestine with perforation and abscess without bleeding Code(s): K57.20 - Diverticulitis of large intestine with perforation and abscess without bleeding Status: Acute Assessment and Plan: Drainage looks bloody but purulent as well. No cultures were done. Continue drain and monitor output daily. Patient having trouble sleeping, will order trazodone. (2) Anemia: Qualifiers: Other causes of anemia: chronic disease, other Code(s): D64.9 - Anemia, unspecified Status: Chronic Assessment and Plan: H&H slightly lower today, probably due to dilutional affects from IV fluids. Nosign of active bleeding. Continue to follow (3) Dyschezia: Code(s): K59.00 - Constipation, unspecified Status: Acute Assessment and Plan: Will start Metamucil and mineral oil as well as Senokot at bedtime. Most likelythe dyschezia and constipation are related to her sigmoid diverticulitis with abscess. Hopefully drainage of the abscess will relieve. (4) Constipation: Qualifiers: Constipation type: other constipation type Qualified Code(s): K59.09 - Other constipation Code(s): K59.00 - Constipation, unspecified Status: Acute Subjective Subjective Date/Time Seen: 09/03/24 11:28 Patient reports: still having pain (Drain site painful, can't sleep), toleratinga regular diet, voiding w/o difficulty, no bowel movement and afebrile Interval history: Complaints are pain at the drain site, insomnia, and no bowel movement for at least 5 days. Review of Systems Review of Systems: All systems reviewed & are unremarkable except as noted in HPI and below (HPI) Exam Const: General: cooperative, alert, awake, tired appearing and thin; No confusion GI: Inspection: no edema, non-distended and scaphoid GI Palp: Yes Soft to palpation, Yes Tenderness to palpation present (GI) (Extremely tender left lowerquadrant at drain site), No Hepatosplenomegaly present, No Hernia present and NoPalpable mass present Objective Data Vital Signs Vital Signs: Vital Signs - 24 hr 09/02/24 15:39 09/02/24 19:39 09/02/24 23:36 Temperature 36.5 C 37.2 C 37.1 C Pulse Rate 79 90 87 Respiratory Rate 16 22 H 18 Blood Pressure 87/51 L 108/56 L 103/63 Pulse Oximetry 95 96 97 09/03/24 03:54 Temperature 36.9 C Pulse Rate 84 Respiratory Rate 14 Blood Pressure 98/58 L Pulse Oximetry 94 Intake/Output Intake/Output: Intake & Output 08/31/24 09/01/24 09/02/24 09/03/24 23:59 23:59 23:59 23:59 Intake Total 50 1910.0 920 Output Total 5 Balance 50 1905.0 920 Meds/Results Medications: Active Medications Generic Name Dose Route Start Last Admin Trade Name Freq PRN Reason Stop Dose Admin Acetaminophen 500 mg 09/02/24 07:10 Acetaminophen 500 Mg Tablet PO Q6H PRN Mild Pain (1-3) or Fever Hydrocodone Bitart/Acetaminophen 1 tab 09/02/24 07:13 Hydrocodone/Acetaminophen (*Crx) 7.5-325 Mg Tablet PO Q6H PRN Pain Rated 7-10 Enoxaparin Sodium 40 mg 09/02/24 09:00 09/03/24 08:33 Enoxaparin 40 Mg/0.4 Ml Syringe SUB-Q Not Given DAILY [facility] Famotidine 20 mg 09/03/24 21:00 Famotidine 20 Mg Tablet PO Q12HR [facility] Hydromorphone HCl 1 mg 09/01/24 21:54 09/03/24 04:21 Hydromorphone Hcl Inj (*Crx) 1 Mg/Ml Syr IV PUSH 1 mg Q2H PRN Administration Breakthrough Pain Rated 7-10 or NPO Hydromorphone HCl 0.5 mg 09/01/24 21:54 09/02/24 05:39 Hydromorphone Hcl Inj (*Crx) 1 Mg/Ml Syr IV PUSH 0.5 mg Q2H PRN Administration Breakthrough Pain Rated 4-6 or NPO Ibuprofen 800 mg in 200 mls @ 400 mls/hr 09/01/24 21:54 09/03/24 10:18 Caldolor 800 Mg/200 Ml IVPB 350 mls/hr Q6H PRN Administration Breakthrough Pain Rated 1-3 or NPO Lactated Ringer's 1,000 mls @ 80 mls/hr 09/01/24 21:55 09/02/24 20:35 Lr - Lactated Ringers Iv IV CONT 100 mls/hr .[id number] [facility] Administration Piperacillin/Tazobactam/Dextrose 3.375 gm in 50 mls @ 100 mls/hr 09/02/24 06:00 09/03/24 06:42 Zosyn 3.375 Gm/Ns 50 Ml IVPB Infused Q6H [facility] Infusion Mineral Oil 15 ml 09/03/24 11:00 Mineral Oil 30 Ml Udc PO Q12H [facility] Miscellaneous Information 1 each 09/02/24 00:01 Duplicate Prn Pain Scale With Oral Percocet Of Pain 7-10, Please Clarify XX 10/02/24 00:00 CLARIFY [facility] Naloxone HCl 0.1 mg 09/01/24 21:54 Naloxone Hcl 0.4 Mg/Ml Vial IV PUSH Q2M PRN Opiate Reversal Ondansetron HCl 4 mg 09/01/24 21:54 09/03/24 04:20 Ondansetron Inj 4 Mg/2 Ml Vial IV PUSH 4 mg Q4H PRN Administration Nausea And Vomiting Oxycodone/Acetaminophen 1 tablet 09/02/24 07:14 Oxycodone/Acetaminophen (*Crx) 5-325 Mg Tablet PO Q4H PRN Pain Rated 4-6 Oxycodone/Acetaminophen 1 tab 09/02/24 07:15 09/03/24 08:30 Oxycodone/Acetaminophen (*Crx) 10-325 Mg Tablet PO 1 tab Q6H PRN Administration Pain Rated 7-10 Psyllium Hydrophilic Mucilloid 1 packet 09/03/24 21:00 Psyllium Powder Packet PO Q12HR [facility] Senna/Docusate Sodium 2 tab 09/03/24 21:00 Senna/Docusate Sodium Tablet PO HS [facility] Trazodone HCl 50 mg 09/03/24 11:00 Trazodone Hcl 50 Mg Tablet PO HS PRN Insomnia Radiology Results: ITS Impressions Catheter Placement CT 09/02/24 10:46 IMPRESSION: 1. Successful CT-guided perisigmoid abscess drainage. Imaging Attestation: I personally reviewed and interpreted this imaging study as follows: (CT scan abdomen from yesterday) My impression: Pigtail catheter in abscess cavity Radiologist's impression: Same This report may have been done utilizing a voice recognition system. Attempts have been made to correct errors. However, there may be uncorrected grammatical,spelling, and recognition errors present. Report Initialized date/time: Aguilar Lang MD 09/03/241136 Electronically signed by: Aguilar Lang MD 09/03/241136 Progress Note Author [facility] September 04, 2024 4:44pm Note Date/Time September 04, 2024 1 2:50pm [address] [place] [address] General Surgery Progress Note Signed with Addenda Patient: Libby Maldonado MR#: [id number] : 1990 Acct:[id number] Age: 33 ADM Date: 09/01/24 Loc: [id number] 300-[address]: Aguilar Lang M.D. cc: ~ ADDENDUM I, Elham Vences MD, have provided a substantive portion of the care of this patient. I performed the history, exam and/or medical decision making for this encounter. abd - S, sl dist, mod TTP LLQ, suprapubic, labs reviewed, exam sl improved, contdrain and abx, recheck labs in am, encourage OOB Elham Vences MD 09/04/24;16:43 Addendum Documented By: Elham Vences MD 09/04/24 1644 Addendum Signed By: <Electronically signed by Elham Vences MD> 4 5142 Progress Note: A&P Assessment and Plan (1) Diverticulitis of large intestine with abscess: Qualifiers: Diverticulitis bleeding: without bleeding Qualified Code(s): K57.20 - Diverticulitis of large intestine with perforation and abscess without bleeding Code(s): K57.20 - Diverticulitis of large intestine with perforation and abscess without bleeding Status: Acute Assessment and Plan: Slight improvement in pain, but still very tender in the suprapubic area and LLQ. WBC count went up to 14,300 today. Will repeat labs again tomorrow. May need to consider repeat CT if leukocytosis worsens. Continue to monitor the percutaneous drain. Continue IV antibiotics. No cultures done with percutaneous drainage. (2) Anemia: Qualifiers: Other causes of anemia: chronic disease, other Code(s): D64.9 - Anemia, unspecified Status: Chronic Assessment and Plan: H&H stable today. No sign of active bleeding. Continue to follow (3) Dyschezia: Code(s): K59.00 - Constipation, unspecified Status: Acute Assessment and Plan: Still no BM. Continue Metamucil and mineral oil as well as Senokot at bedtime. (4) Constipation: Qualifiers: Constipation type: other constipation type Qualified Code(s): K59.09 - Other constipation Code(s): K59.00 - Constipation, unspecified Status: Acute Plan I have discussed the patient's case and plan of care with Dr. Vences. Subjective Subjective Date/Time Seen: 09/04/24 12:48 Patient reports: feels better, pain is less, tolerating a regular diet, flatus, no bowel movement and afebrile Interval history: Patient reports mild improvement in her abdominal pain. Still having sharp stabbing pain in the LLQ with certain movements. The pain is located near the percutaneous drain. She reports having a lot of nausea last night and increased pain, which required IV Dilaudid. Today, she is feeling better than last night and no nausea with breakfast. Exam Const: General: comfortable and awake Orientation/consciousness: patient oriented x3 GI: Inspection: non-distended and other (LLQ perc drain with rust-colored drainage) GI Palp: Yes Soft to palpation, Yes Tenderness to palpation present(GI) (still very tender in the suprapubic area and LLQ, mild tenderness in RLQ),Yes Guarding due to palpation present (GI) (voluntary guarding in LLQ) and No Rebound tenderness present Auscultation: normal bowel sounds Objective Data Vital Signs Vital Signs: Vital Signs - 24 hr 09/03/24 14:00 09/03/24 20:16 09/04/24 05:26 Temperature 96.8 F L 98.5 F 98.5 F Pulse Rate 86 78 85 Respiratory Rate 16 16 14 Blood Pressure 106/70 116/72 107/65 Pulse Oximetry 100 98 99 Intake/Output Intake/Output: Intake & Output 09/01/24 09/02/24 09/03/24 09/04/24 23:59 23:59 23:59 23:59 Intake Total 50 1910.0 2668.3 0 Output Total 5 10 Balance 50 1905.0 2668.3 2039 Meds/Results Medications: Active Medications Generic Name Dose Route Start Last Admin Trade Name Freq PRN Reason Stop Dose Admin Acetaminophen 500 mg 09/02/24 07:10 Acetaminophen 500 Mg Tablet PO Q6H PRN Mild Pain (1-3) or Fever Enoxaparin Sodium 40 mg 09/02/24 09:00 09/04/24 08:19 Enoxaparin 40 Mg/0.4 Ml Syringe SUB-Q Not Given DAILY [facility] Famotidine 20 mg 09/03/24 21:00 09/04/24 08:20 Famotidine 20 Mg Tablet PO 20 mg Q12HR [facility] Administration Hydromorphone HCl 1 mg 09/01/24 21:54 09/03/24 20:56 Hydromorphone Hcl Inj (*Crx) 1 Mg/Ml Syr IV PUSH 1 mg Q2H PRN Administration Breakthrough Pain Rated 7-10 or NPO Hydromorphone HCl 0.5 mg 09/01/24 21:54 09/02/24 05:39 Hydromorphone Hcl Inj (*Crx) 1 Mg/Ml Syr IV PUSH 0.5 mg Q2H PRN Administration Breakthrough Pain Rated 4-6 or NPO Ibuprofen 800 mg in 200 mls @ 400 mls/hr 09/01/24 21:54 09/03/24 10:18 Caldolor 800 Mg/200 Ml IVPB 350 mls/hr Q6H PRN Administration Breakthrough Pain Rated 1-3 or NPO Lactated Ringer's 1,000 mls @ 80 mls/hr 09/01/24 21:55 09/04/24 10:49 Lr - Lactated Ringers Iv IV CONT 80 mls/hr .[id number] [facility] Administration Piperacillin/Tazobactam/Dextrose 3.375 gm in 50 mls @ 100 mls/hr 09/02/24 06:00 09/04/24 11:36 Zosyn 3.375 Gm/Ns 50 Ml IVPB Infused Q6H [facility] Infusion Mineral Oil 15 ml 09/03/24 11:00 09/04/24 10:50 Mineral Oil 30 Ml Udc PO 15 ml Q12H [facility] Administration Naloxone HCl 0.1 mg 09/01/24 21:54 Naloxone Hcl 0.4 Mg/Ml Vial IV PUSH Q2M PRN Opiate Reversal Ondansetron HCl 4 mg 09/01/24 21:54 09/04/24 06:19 Ondansetron Inj 4 Mg/2 Ml Vial IV PUSH 4 mg Q4H PRN Administration Nausea And Vomiting Oxycodone/Acetaminophen 1 tablet 09/02/24 07:14 09/04/24 10:53 Oxycodone/Acetaminophen (*Crx) 5-325 Mg Tablet PO 1 tablet Q4H PRN Administration Pain Rated 4-6 Oxycodone/Acetaminophen 1 tab 09/02/24 07:15 09/03/24 23:18 Oxycodone/Acetaminophen (*Crx) 10-325 Mg Tablet PO 1 tab Q6H PRN Administration Pain Rated 7-10 Psyllium Hydrophilic Mucilloid 1 packet 09/03/24 21:00 09/04/24 08:24 Psyllium Powder Packet PO 1 packet Q12HR [facility] Administration Senna/Docusate Sodium 2 tab 09/03/24 21:00 09/04/24 07:38 Senna/Docusate Sodium Tablet PO Not Given HS [facility] Trazodone HCl 50 mg 09/03/24 11:00 Trazodone Hcl 50 Mg Tablet PO HS PRN Insomnia Radiology Results: ITS Impressions Catheter Placement CT 09/02/24 10:46 IMPRESSION: 1. Successful CT-guided perisigmoid abscess drainage. Labs Labs: Laboratory Results - last 24 hr 09/04/24 05:55 WBC 14.3 H RBC 3.27 L Hgb 9.0 L Hct 28.7 L MCV 87.8 MCH 27.5 MCHC 31.4 L RDW 14.4 Plt Count 378 H MPV 10.6 H Sodium 135 L Potassium 3.9 Chloride 101 Carbon Dioxide 28 Anion Gap 6 BUN 2 L D Creatinine 0.60 L Estim Creat Clear Calc 90 Estimated GFR > 60 Glucose 113 H Calcium 8.6 This report may have been done utilizing a voice recognition system. Attempts have been made to correct errors. However, there may be uncorrected grammatical,spelling, and recognition errors present. Report Initialized date/time: Barbie Smith APN 09/04/24 / 1250 Electronically signed by: Barbie Smith APN 09/04/24 1304
--- OUTSIDE RECORDS SUMMARY | 2024-12-03 22:59 | XMS_ITS | Continuity of Care Document ---
Author Organization [facility] Address [address] [place] [address] Care Team Providers Care New Car Make Ready Worker Name Role Phone MD Mariama Arias Emergency Provider [phone] UNKNOWN, DOCTOR Primary Care Provider Unavail able MD Aguilar Lang Other Provider MD Teodoro Dye Admit Provider [phone] YOVANNY Eric Attending Provider NAVIN Smith Other Provider YOVANNY Brizuela Other Provider [phone] MD Marco A Alvarado Other Provider [phone] ROSEMARIE Henderson Other Provider DO Juancarlos Aguilar Other Provider [phone] MD Aguilar Lang Attending Provider PHYSICIAN NOT ON STAFF, NONSTAFF Primary Care Provider Unavailable MD Elham Vences Admit Provider MD Elham Vences Attending Provider [phone] MD Ranjeet Butcher V. Other Provider [phone] MD Sanjiv Burns Emergency Provider + Care Teams Patient Care Team Team Status: [...] Care Provider Active Elham Vences MD Admit Provider, [...] Diverticulitis Diverticulitis w/abscess Diverticulitis w Colocutaneous Fistula Reason for Visit Constipation Constipation Dyschezia Anemia Abdominal wall abscess 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 Colon perforation Anemia Allergies, Adverse Reactions, Alerts No known allergies Social History Smoking Status Status Start Date End Date Date of Observa tion Smokes tobacco daily (finding) September 08, 2024 12:54am Observation Status Observation Response Date of Response Do You Feel Safe in your Home? Yes O ctober 2023 12:54am Has Lack of Trans Kept You F rom Med Appts or Getting Meds? No September 08, 2024 12:54am In Past 12 Months, Were You Worried Your Food Would Run Out? Never True September 08, 2024 12 :54am What is Your Housing Situati on Today? I Have Housing September 08, 2024 12:54am Gender Identity (if Verbaliz ed by the Patient) Female January 17, 2024 2:40pm Are You Worried That in Next 2 Mo, You Won't Have Housing? No September 08, 2024 12:54am Do You Have Trouble Paying Y our Heating Or Electricity Bill? Yes September 08, 2024 12:54a m Do You Have Trouble Paying F or Medicines? No September 08, 2024 12:54am Are You Currently Unemployed and Looking for Work? Yes September 08, 2024 12:54am Highest Level of Education Completed High School Diploma/GED September 08, 2024 12:54am Do You Have Trouble With Childcare/Care of a Family Member? No September 08, 2024 12:54am alcohol intake never September 08 12:54am Substance use type marijuana September 08, 2024 12:54am other September 08 12:54am Additional Data Assigned Sex Female Family History Relationship Condition Age at Onset Recorded Date/T gil mother Diverticulitis Unknown father Heart problem Unknown Problems Active Problems Medical Problem Onset Date Status Colocutaneous fistula Active Abdominal wall abscess Active Anemia Active Colon cancer without distant metastasis Active Leukocytosis Active Dyschezia Active Colon perforation Active Constipation Active Inactive/Resolved Problems Medical Problem Onset Date Status UTI (urinary tract infection) Re solved Diverticulitis of intestine with perforation Resolved Fecal peritonitis Resolved LLQ abdominal mass Resolved Diverticulitis of large intestine with abscess [...] 2 TABLET PO Q6H September 19, 2024 Immunizations Immunization Event Date Not Given Reason Dose Number Hand Edger Lot Number Vaccine Information Statement (VIS) Detail [...] (Not Applicable) Oc tober 2023 9:00am completed Blood Culture August 07, 2024 completed Urine Culture August 07, 2024 completed Blood Culture September 02, 2024 completed Comp Tomography Guide Abscess Cath Place September 02, 2024 8:30am completed Procedure Notes Author [facility] September 12, 2024 2:11pm Note Date/Time September 12, 2024 2 :11pm [place] [address] [place] [address] Operative Note Signed Patient: Libby Maldonado MR#: [id number] : 1990 Acct:[id number] Age: 33 ADM Date: 09/08/24 Loc: [id number]: Elham Vences M.D. cc: Elham Vences MD; Sanjiv Burns MD; UNKNOWN,DOCTOR~ Procedure Note - Detailed Date of Procedure 09/12/24 Pre-op Diagnosis Diverticulitis w/abscess, colocutaneous fistula, abdominal wall abscess Post-op Diagnosis Same Procedure Performed Sigmoid colon resection with hand-sewn end-to-end anastomosis, drainage abdominal wall abscess Surgeon Aguilar Lang MD Server Programmer Barbie Smith [facility], Meagan Richey [facility] Anesthesia General Indications Patient has been suffering from lower abdominal pain with CT evidence of diverticulitis with abscess for several weeks. She came back in earlier this month with a 5 cm abscess. This was able to be percutaneously drained. Patientwent home but came back within a couple of days with now evidence of a colo cutaneous fistula. There was also abdominal wall abscess associated with this colocutaneous fistula, presumptive source is diverticulitis by imaging. CEA waswithin normal limits for a smoker. Patient has liquid stool draining out only through the percutaneous catheter but also around it to the point that an ostomyappliance and bag had to be placed over the exit site of the drain. After thorough discussion, she is taken to surgery now for sigmoidectomy and likely colostomy or ileostomy with drainage of abdominal wall abscess. Findings There was no free fecal matter in the abdominal cavity. The sigmoid colon with the perforated area was solidly adherent to the anterior abdominal wall oppositethe pigtail catheter drain. Omentum was also surrounding the adherent area of sigmoid colon and abdominal wall. The colon proximal to this and the large intestine and rectum distal to this were pliable and healthy. Although diversion was anticipated, resection and anastomosis was able to be performed. The anterior abdominal wall had evidence of infection with tissue destruction throughout. Due to concerns that this may be a malignancy, the sigmoid colon was excised with appropriate margins and an appropriate amount of mesenteric resection including and down to the origin of the inferior mesenteric artery. The thickened peritoneum where the colon had been attached to the abdominal wallwas excised for about a 1 cm segment around the adherent area. The omentum thathad also been adherent to the perforated segment of sigmoid colon was also excised and sent as a specimen. There was no gross evidence of metastatic disease on abdominal exploration should this be a tumor. We did send a specimento pathology and grossly they felt it was most consistent with a neoplasm. Description of Procedure Patient was taken to surgery and induced into general anesthesia. Walker catheter was placed. The abdomen was prepped and draped. Under anesthesia of the colostomy appliance and the rest of the pigtail catheter in the left lower quadrant were removed. The entire abdomen was prepped and a Ray-Diogenes sponge was placed over the drain site with Ioban being placed over the abdomen after the towels had been in place. Midline incision was made starting just above the umbilicus and proceeding down to nearly the pubis. Cautery was used for hemostasis. We opened the fascia in the midline and then entered the peritonealcavity. There was no odor or gross evidence of fecal material on entering the abdomen. General abdominal exploration was carried out. There were no nodes enlarged and the liver was normal by palpation. The sigmoid colon with the areaof perforation was densely adherent to the anterior abdominal wall on the same side and in conjunction with the pigtail catheter site. Small intestine was packed away from the sigmoid colon and pelvis. I gently started to break the adhesions of the sigmoid from the anterior abdominal wall. This was done initially on the left anterior aspect. Liquid stool was evident from the bowel but was quickly suctioned away so that spillage was minimal. From there I was able to continue dissecting this off the abdominal wall. When any stool was seen it was suctioned away and no significant spillage occurred at all. Eventually the entire perforated area of sigmoid was taken off the anterior abdominal wall. I did use 4-0 silk suture and partially occluded the area of perforation although another area was still evident. The area that I sutured closed was the area where the previous stool had been coming from. This kept the sigmoid from leaking throughout the rest of the surgery. I then placed the patient in Trendelenburg with the left side elevated. Lateral peritoneal attachments to the sigmoid colon were then taken down so that it could be mobilized to the midline. This was also carried out with the proximal and mid descending colon. The left ureter was carefully found and was protected throughout the surgery. In the area of the sacral promontory, additional mobilization of the intra-abdominal rectum was carried out. Dissection across the sacral promontory was carried out and this dissection was carried through the peritoneum from the patient's left side to the right. I used the cautery and exposed the mesentery to the distal sigmoid in per rectum. An area of distal sigmoid which was at least 5 cm from the mass was chosen. I divided the mesentery including the superior rectal artery up to this portion of distal sigmoid. After freeing the attached mesentery to the distal sigmoid, I used a TLC 75 stapler and divided the distal sigmoid in this area. I then scored the mesentery on the medial aspect to the area of the perforation and on medially toward the splenic flexure. I was able to find the inferior mesenteric artery. I dissected out the inferior mesenteric artery near its origin from the aorta and then and divided it with the LigaSure. I then chose an area at least 5 cm proximal to the perforated portion of the sigmoid and used the LigaSure to divide the mesentery up to this point. This was in the distal to mid descendingcolon. I divided this with the 75 TLC stapler as well. I then passed the specimen off to pathology with the corresponding mesenteric nodes. The specimenwas sent to pathology for just a gross impression, not a frozen section. Pathologist reported back that this appeared to be more of a neoplasm than diverticulitis. There were no palpable or suspicious nodes to my inspection andpalpation. I then proceeded to mobilize more of the descending colon mesentery and divided additional lateral peritoneal attachments to the descending colon. I did not take down the splenic flexure. Care was taken again not to injure theureter.. Eventually this mobilization gave adequate length for anastomosis to the distal descending colon. I did not really see any diverticula in the sigmoid colon. The 2 ends of bowel came together without tension and appeared to be well vascularized. I then proceeded with a 2 layer hand-sewn end-to-end anastomosis. The posterior outer layer was completed with interrupted Lembert sutures of 4-0 silk. I placed noncrushing bowel clamps distal and proximal to the staple lines on each bowel end. I then removed the staple line from each end of the bowel. Any stool in the bowel was suctioned away. The suction was then changed out for a clean Yankauer suction. The posterior inner layer was began with bidirectional running locking suture of 4-0 chromic. Each corner andthen the anterior inner layer was completed with inverting continuous suture or Braman sutures. The 2 sutures were tied together in the midline. All looked good. The noncrushing bowel clamps were removed. The anterior outer layer was then completed with interrupted Lembert suture of 4-0 silk. The anastomosis looked good. It appeared to be under no tension with the bowel well vascularized. There was a nice palpable lumen as well. We then irrigated the pelvis thoroughly with a couple of L of warm saline. I brought up the omentum that was attached to the sigmoid colon where it was adherent to the anterior abdominal wall. I excised all of this omentum but left quite a bit of omentum as well. I placed silk sutures on the side of the omentum that had been adherent to the colon perforation to identify that for the pathologist. I then turned my attention to area where the colon had been attached to the anterior abdominal wall. I removed about 1 cm of thickened peritoneum circumferentially from this area. The peritoneum, even though thickened, was friable and did not come off as a nice circular piece. It was submitted as fragments with some of the devitalized and infected aspects of the abdominal wall created by the perforation and abscess. I removed this portion of the abdominal wall so that there would be little or no aspects of infected material left. I then used cautery for hemostasis. This was not completely effective. I then used Surgiflo and filled this area of abdominal wall. I held pressure with the Surgiflo place for 2 or 3 minutes. At after it appeared to be quite hemostatic. There was no intra-abdominal abscess that would require a postoperative drain. The only abscess was the area of perforation and associated anterior abdominal wall. The abdominal contents were then placed back in the abdomen in there usual anatomic location. The omentum was positioned anteriorly over the abdominal viscera. 0 chromic suture was used to close the peritoneum from pubis up to the semicircular line. Number 1 running PDS suture was used to close the midline fascia in bidirectional fashion. The subcutaneous was closed with interrupted 3- 0 Vicryl suture. The skin was loosely approximated with subcuticular interrupted 4-0 Vicryl suture. We quarantined the incision. I then went to the patient's left side and inspected the area where the pigtail catheter had been. After probing this area, it was obvious that there was a tract running down to the lateral abdominal wall. This tract had been contaminated by stool and was essentially the anterior portion of the abdominal wall abscess. I divided the skin overlying the tract with a cruciate type incision. I then thoroughly irrigated the tract with warm saline. The tract was then packed with 1 in iodoform Nu Gauze. Fluffs were used to cover the abscess as well as the midline incision. Dressings were kept in place with Medipore tape. Patient was then awakened. Walker catheter was removed. She wastransferred to recovery in good condition. Sponge and needle counts were correct x2. Estimated Blood Loss -50 Urine Output 1,000 Drains No Packing Yes (Left lower quadrant abscess packed with 1 in iodoform Nu Gauze) Pathology Yes (Sigmoid colon, attached omentum and attached peritoneum of the abdominal wall associated with colon perforation) Complications None Condition Stable Disposition PACU [facility] Billing Surgery - Charge Forward: Surgery Billing (Sigmoid colectomy with hand-sewn end-to-end anastomosis, drainage abdominal wall abscess) This report may have been done utilizing a voice recognition system. Attempts have been made to correct errors. However, there may be uncorrected grammatical,spelling, and recognition errors present. Report Initialized date/time: Aguilar Lang MD 09/12/241410 Electronically signed by: Aguilar Lang MD 09/12/241410 Relevant Diagnostic Tests and/or Laboratory Data Laboratory Results Test Date/Time Result Interpretation Reference Range Result Comment Performing Site White Blood Count August 13, 2024 6:17am 5.5 K/mm3 4.5-10.0 [facility] [id number] [address] [place] [address] White Blood Count September 01, 2024 12:20pm 6.7 K/mm3 4.5-10.0 [facility] [id number] [address] [place] [address] White Blood Count September 05, 2024 6:39am 10.3 K/mm3 Above high normal 4.5-10.0 [facility] [id number] [address] [place] [address]240 White Blood Count September 19, 2024 7:00am 16.0 K/mm3 Above high normal 4.5-10.0 [facility] [id number] [address] [place] [address]859 Red Blood Count August 13, 2024 6:17am 3.22 M/mm3 Below low normal 4.2-5.4 [facility] [id number] [address] [place] [address]781 Red Blood Count September 01, 2024 12:20pm 3.71 M/mm3 Below low normal 4.2-5.4 [facility] [id number] [address] [address] Red Blood Count September 05, 2024 6:39am 3.03 M/mm3 Below low normal 4.2-5.4 [facility] [id number] [address] [address] Red Blood Count September 19, 2024 7:00am 3.12 M/mm3 Below low normal 4.2-5.4 [facility] [id number] [address] [place] [address] Hemoglobin August 13, 2024 6:17am 9.5 g/dL Below low normal 12.0-15.0 [facility] [id number] [address] [address] Hemoglobin September 01, 2024 12:20pm 10.3 g/dL Below low normal 12.0-15.0 [facility] [id number] [address] [address] Hemoglobin September 05, 2024 6:39am 8.5 g/dL Below low normal 12.0-15.0 [facility] [id number] [address] [address] Hemoglobin September 19, 2024 7:00am 8.4 g/dL Below low normal 12.0-15.0 [facility] [id number] [address] [address] Hematocrit August 13, 2024 6:17am 29.5 % Below low normal 37.0-47.0 [facility] [id number] [address] [address] Hematocrit September 01, 2024 12:20pm 33.2 % Below low normal 37.0-47.0 [facility] [id number] [facility] [address] Hematocrit September 05, 2024 6:39am 26.6 % Below low normal 37.0-47.0 [facility] [id number] [facility] [address] [address] Hematocrit September 19, 2024 7:00am 26.9 % Below low normal 37.0-47.0 [facility] [id number] [facility] [address] [address] Mean Corpuscular Volume August 13, 2024 6:17am 91.6 fL 80-100 [facility] [id number] [address] [place] [address] Mean Corpuscular Volume September 01, 2024 12:20pm 89.5 fL 80-100 [facility] [id number] [address] [place] [address]953 Mean Corpuscular Volume September 05, 2024 6:39am 87.8 fL 80100 [facility] [id number] [address] [place] [address] Mean Corpuscular Volume September 19, 2024 7:00am 86.2 fL 80-100 [facility] [id number] [address] [place] [address]20 Mean Corpuscular Hemoglobin August 13, 2024 6:17am 29.5 pg 26-34 [facility] [id number] [address] [place] [address]41 Mean Corpuscular Hemoglobin September 01, 2024 12:20pm 27.8 pg 26-34 [facility] [id number] [address] [place] [address]69 Mean Corpuscular Hemoglobin September 05, 2024 6:39am 28.1 pg 26-34 [facility] [id number] [address] [place] [address]804 Mean Corpuscular Hemoglobin September 19, 2024 7:00am 26.9 pg 26-34 [facility] [id number] [address] [place] [address] Mean Corpuscular Hemoglobin Concent August 13, 2024 6:17am 32.2 g/dL -36 [facility] [id number] [address] [place] [address] Mean Corpuscular Hemoglobin Concent September 01, 2024 12:20pm 31.0 g/dL Below low normal 32-36 [facility] [id number] [address] [place] [address] Mean Corpuscular Hemoglobin Concent September 05, 2024 6:39am 32.0 g/dL -36 [facility] [id number] [address] [place] [address]64 Mean Corpuscular Hemoglobin Concent September 19, 2024 7:00am 31.2 g/dL Below low normal 32-36 [facility] [id number] [address] [place] [address]453 Red Cell Distribution Width August 13, 2024 6:17am 13.6 % 11.5-14.5 [facility] [id number] [address] [place] [address]34 Red Cell Distribution Width September 01, 2024 12:20pm 14.3 % 11.5-14.5 [facility] [id number] [address] [place] [address] 58666 Red Cell Distribution Width September 05, 2024 6:39am 14.4 % 11.5-14.5 [facility] [id number] [address] [place] [address]643 Red Cell Distribution Width September 19, 2024 7:00am 15.2 % Above high normal 11.5-14.5 [facility] [id number] [address] [place] [address] Platelet Count August 13, 2024 6:17am 249 k/mm3 150-375 [facility] [id number] [address] [place] [address] 63052 Platelet Count September 01, 2024 12:20pm 437 k/mm3 Above high normal 150-375 [place]: 249 on 08/13/24-17 [facility] [id number] [address] [place] [address] Platelet Count September 05, 2024 6:39am 325 k/mm3 150-375 [facility] [id number] [address] [address] Platelet Count September 19, 2024 7:00am 630 k/mm3 Above high normal 150-375 [facility] [id number] [address] [place] [address] Mean Platelet Volume August 13, 2024 6:17am 10.5 fL Above high normal 7.4-10.4 [facility] [id number] [address] [place] [address] 368[address] Mean Platelet Volume September 01, 2024 12:20pm 9.3 fL 7.4-10.4 [facility] [id number] [address] [place] [address]10 Mean Platelet Volume September 05, 2024 6:39am 9.6 fL 7.4-10.4 [facility] [id number] [address] [place] [address] 57174 Mean Platelet Volume September 19, 2024 7:00am 9.3 fL 7.4-10.4 [facility] [id number] [facility] [address] [address] Nucleated Red Blood Cells % August 13, 2024 6:17am 0.0 % 0.0-0.2 [facility] [id number] [address] [address] Nucleated Red Blood Cells % September 01, 2024 12:20pm 0.0 % 0.0-0.2 [facility] [id number] [address] [place] [address] Nucleated Red Blood Cells % September 19, 2024 7:00am 0.0 % 0.0-0.2 [facility] [id number] [address] [place] [address] Immature Granulocyte % (Auto) August 13, 2024 6:17am 0.2 % 0-0.5 [facility] [id number] [address] [place] [address]262 Immature Granulocyte % (Auto) September 01, 2024 12:20pm 0.3 % 0-0.5 [facility] [id number] [address] [place] [address]130 Immature Granulocyte % (Auto) September 19, 2024 7:00am 0.6 % Above high normal 0-0.5 [facility] [id number] [address] [place] [address] Neutrophils (%) (Auto) August 13, 2024 6:17am 64.4 % 45.5-73.1 [facility] [id number] [address] [place] [address]293 Neutrophils (%) (Auto) September 01, 2024 12:20pm 72.6 % 45.5-73.1 [facility] [id number] [address] [place] [address] 7[address]43 Neutrophils (%) (Auto) September 19, 2024 7:00am 79.7 % Above high normal 45.5-73.1 [facility] [id number] [address] [place] [address]304 Lymphocytes (%) (Auto) August 13, 2024 6:17am 27.1 % 18.3-44.2 [facility] [id number] [address] [place] [address] 17304 Lymphocytes (%) (Auto) September 01, 2024 12:20pm 19.7 % 18.3-44.2 [facility] [id number] [address] [place] [address] 26473 Lymphocytes (%) (Auto) September 19, 2024 7:00am 10.8 % Below low normal 18.3-44.2 [facility] [id number] [address] [place] [address]23 Monocytes (%) (Auto) August 13, 2024 6:17am 6.8 % 2.6-8.5 [facility] [id number] [address] [place] [address] [id number] Monocytes (%) (Auto) September 01, 2024 12:20pm 6.3 % 2.6-8.5 [facility] [id number] [address] [place] [address] 70771 Monocytes (%) (Auto) September 19, 2024 7:00am 7.4 % 2.6-8.5 [facility] [id number] [address] [place] [address] 80528 Eosinophils (%) (Auto) August 13, 2024 6:17am 1.1 % 0-4.4 [facility] [id number] [address] [place] [address] 99610 Eosinophils (%) (Auto) September 01, 2024 12:20pm 0.7 % 0-4.4 [facility] [id number] [address] [place] [address] 99343 Eosinophils (%) (Auto) September 19, 2024 7:00am 1.2 % 0-4.4 [facility] [id number] [address] [place] [address] 22155 Basophils (%) (Auto) August 13, 2024 6:17am 0.4 % 0.2-1.2 [facility] [id number] [address] [place] [address] 47116 Basophils (%) (Auto) September 01, 2024 12:20pm 0.4 % 0.2-1.2 [facility] [id number] [address] [place] [address] 46909 Basophils (%) (Auto) September 19, 2024 7:00am 0.3 % 0.2-1.2 [facility] [id number] [address] [place] [address] 74337 Nucleated RBC Absolute Count (auto) August 13, 2024 6:17am 0.000 K/mm3 0.0-0.012 [facility] [id number] [address] [place] [address] 05566 Nucleated RBC Absolute Count (auto) September 01, 2024 12:20pm 0.000 K/mm3 0.0-0.012 [facility] [id number] [address] [place] [address] 84810 Nucleated RBC Absolute Count (auto) September 19, 2024 7:00am 0.000 K/mm3 0.0-0.012 [facility] [id number] [address] [place] [address] 46696 Absolute Immature Granulocyte (auto August 13, 2024 6:17am 0.01 K/mm3 0.00-0.031 [facility] [id number] [address] [place] [address] 21355 Absolute Immature Granulocyte (auto September 01, 2024 12:20pm 0.02 K/mm3 0.00-0.031 [facility] [id number] [address] [place] [address] 67963 Absolute Immature Granulocyte (auto September 19, 2024 7:00am 0.10 K/mm3 Above high normal 0.00-0.031 [facility] [id number] [address] [place] [address] 87534 Absolute Neutrophils (auto) August 13, 2024 6:17am 3.5 K/mm3 1.3-6.7 [facility] [id number] [address] [place] [address] 55110 Absolute Neutrophils (auto) September 01, 2024 12:20pm 4.9 K/mm3 1.3-6.7 [facility] [id number] [address] [place] [address] 62171 Absolute Neutrophils (auto) September 19, 2024 7:00am 12.7 K/mm3 Above high normal 1.3-6.7 [facility] [id number] [address] [place] [address] 08335 Lymphocytes # (Auto) August 13, 2024 6:17am 1.48 K/mm3 0.9-3.2 [facility] [id number] [address] [place] [address] 60484 Lymphocytes # (Auto) September 01, 2024 12:20pm 1.32 K/mm3 0.9-3.2 [facility] [id number] [address] [place] [address] 67250 Lymphocytes # (Auto) September 19, 2024 7:00am 1.72 K/mm3 0.9-3.2 [facility] [id number] [address] [place] [address] 70405 Monocytes # (Auto) August 13, 2024 6:17am 0.4 K/mm3 0.1-0.6 [facility] [id number] [address] [place] [address] 72873 Monocytes # (Auto) September 01, 2024 12:20pm 0.4 K/mm3 0.1-0.6 [facility] [id number] [address] [place] [address] 72322 Monocytes # (Auto) September 19, 2024 7:00am 1.2 K/mm3 Above high normal 0.1-0.6 [facility] [id number] [address] [place] [address] 62592 Eosinophils # (Auto) August 13, 2024 6:17am 0.1 K/mm3 0-0.3 [facility] [id number] [address] [place] [address] 48802 Eosinophils # (Auto) September 01, 2024 12:20pm 0.1 K/mm3 0-0.3 [facility] [id number] [address] [place] [address] 47318 Eosinophils # (Auto) September 19, 2024 7:00am 0.2 K/mm3 0-0.3 [facility] [id number] [address] [place] [address] 01729 Basophils # (Auto) August 13, 2024 6:17am 0.0 K/mm3 0.0-0.1 [facility] [id number] [address] [place] [address] 04537 Basophils # (Auto) September 01, 2024 12:20pm 0.0 K/mm3 0.0-0.1 [facility] [id number] [address] [place] [address] 14051 Basophils # (Auto) September 19, 2024 7:00am 0.1 K/mm3 0.0-0.1 [facility] [id number] [address] [place] [address] 79054 Prothrombin Time September 02, 2024 8:26am 13.5 s 11.1-14.7 [facility] [id number] [address] [place] [address] 24556 Prothrombin Time September 07, 2024 10:04pm 14.4 s 11.1-14.7 [facility] [id number] [address] [place] [address] 91136 Prothromb Time International Ratio September 02, 2024 8:26am 1.0 INR Indication----- ---- --------0.9 - 1.1 Patients not on anticoagulant therapy.2.0 - 3.0 Routine therapy.2.5 - 3.5 Recurrent myocardial infarction or mechanical prosthetic valves. [facility] [id number] [address] [place] [address] 47637 Prothromb Time International Ratio September 07, 2024 10:04pm 1.1 INR Indication----- ---- --------0.9 - 1.1 Patients not on anticoagulant therapy.2.0 - 3.0 Routine therapy.2.5 - 3.5 Recurrent myocardial infarction or mechanical prosthetic valves. [facility] [id number] [address] [place] [address] 21967 Activated Partial Thromboplast Time September 02, 2024 8:26am 28.7 s 22.3-36.8 [facility] [id number] [address] [place] [address] 03944 Activated Partial Thromboplast Time September 07, 2024 10:04pm 33.3 s 22.3-36.8 [facility] [id number] [address] [place] [address] 86416 Urine Color August 07, 2024 1:03pm Dark yellow Yellow [facility] [id number] [address] [place] [address] 18032 Urine Color September 19, 2024 10:34am Yellow Yellow [facility] [id number] [address] [place] [address] 36341 Urine Appearance August 07, 2024 1:03pm Cloudy Above high normal Clear [facility] [id number] [address] [place] [address] 42129 Urine Appearance September 19, 2024 10:34am Clear Clear [facility] [id number] [address] [place] [address] [place] [address] 39625 Urine pH August 07, 2024 1:03pm 5.5 5.0-9.0 [facility] [id number] [address] [address]47 Urine pH September 19, 2024 10:34am 6.0 5.0-9.0 [facility] [id number] [address] 20656 Urine Specific [place] August 07, 2024 1:03pm 1.030 1.001-1.[address] [place] [address] [facility] [id number] [address] [facility] [address] [place] [address] 84424 Urine Specific [place] September 19, 2024 10:34am 1.024 1.001-1.[address] [place] [address] [facility] [id number] [address] 59017 Urine Protein August 07, 2024 1:03pm 1+ mg/dL Above high normal Negative [facility] [id number] [address] 15954 Urine Protein September 19, 2024 10:34am Trace mg/dL Negative [facility] [id number] [address] 69505 Urine Glucose (UA) August 07, 2024 1:03pm Negative mg/dL [facility] [id number] [address] 62168 Urine Glucose (UA) September 19, 2024 10:34am Negative mg/dL [facility] [id number] [address] 93675 Urine Ketones August 07, 2024 1:03pm 4+ mg/dL Above high normal Negative [facility] [id number] [address] 97039 Urine Ketones September 19, 2024 10:34am Trace mg/dL Above high normal Negative [facility] [id number] [address] [facility] [address] [place] [address] 34966 Urine Blood (Manual) August 07, 2024 1:03pm 1+ Above high normal Negative [facility] [id number] [address] 11688 Urine Blood (Manual) September 19, 2024 10:34am Negative Negative [facility] [id number] [address] 78480 Urine Nitrate August 07, 2024 1:03pm Positive Above high normal Negative [facility] [id number] [address] [place] [address] 17819 Urine Nitrate September 19, 2024 10:34am Negative Negative [facility] [id number] [address] 60313 Urine Bilirubin August 07, 2024 1:03pm Negative Negative [facility] [id number] [address] 42908 Urine Bilirubin September 19, 2024 10:34am Negative Negative [facility] [id number] [address] [facility] [address] [place] [address] 81021 Urine Urobilinogen August 07, 2024 1:03pm 1.0 mg/dL <2.0 [facility] [id number] [address] [place] [address] 44138 Urine Urobilinogen September 19, 2024 10:34am 0.2 mg/dL <2.0 [facility] [id number] [address] 07176 Urine Leukocyte Esterase (Reflex) August 07, 2024 1:03pm 1+ ROSI/UL Above high normal Negative [facility] [id number] [address] 20887 Urine Leukocyte Esterase (Reflex) September 19, 2024 10:34am Negative ROSI/UL Negative [facility] [id number] [address] [address]24 Urine RBC August 07, 2024 1:03pm 6-10 [HPF] Above high normal 0-2 [facility] [id number] [address] 74414 Urine RBC September 19, 2024 10:34am 3-5 [HPF] Above high normal 0-2 [facility] [id number] [address] [facility] [address] [place] [address] 50296 Urine WBC August 07, 2024 1:03pm 21-50 [HPF] Above high normal 0-3 [facility] [id number] [address] 6[address]82 Urine WBC September 19, 2024 10:34am 0-5 [HPF] 0-3 [facility] [id number] [address] 54406 Urine Squamous Epithelial Cells August 07, 2024 1:03pm Many [HPF] Above high normal [facility] [id number] [address] 91694 Urine Squamous Epithelial Cells September 19, 2024 10:34am Moderate [HPF] [facility] [id number] [address] [place] [address] 11895 Urine Calcium Oxalate Crystals August 07, 2024 1:03pm Present [HPF] None [facility] [id number] [address] [place] [address] 71746 Urine Calcium Oxalate Crystals September 19, 2024 10:34am Present [HPF] None [facility] [id number] [address] [place] [address] 74453 Urine Bacteria August 07, 2024 1:03pm 4+ [HPF] Above high normal [facility] [id number] [address] [place] [address] 10643 Urine Bacteria September 19, 2024 10:34am None seen [HPF] [facility] [id number] [address] [place] [address] 54470 Urine Mucus August 07, 2024 1:03pm Present [LPF] [facility] [id number] [address] [place] [address] 45075 Sodium Level August 13, 2024 6:17am 135 mmol/L Below low normal 137-145 [facility] [id number] [address] [place] [address] 42583 Sodium Level September 01, 2024 12:20pm 137 mmol/L 137-145 [facility] [id number] [address] [place] [address] 01220 Sodium Level September 05, 2024 6:39am 136 mmol/L Below low normal 137-145 [facility] [id number] [address] [place] [address] 41606 Sodium Level September 19, 2024 7:00am 136 mmol/L Below low normal 137-145 [facility] [id number] [address] [place] [address] 21081 Potassium Level August 13, 2024 6:17am 3.9 mmol/L 3.4-5.0 [facility] [id number] [address] [place] [address] 86071 Potassium Level September 01, 2024 12:20pm 4.4 mmol/L 3.4-5.0 [facility] [id number] [address] [place] [address] 25171 Potassium Level September 05, 2024 6:39am 3.8 mmol/L 3.4-5.0 [facility] [id number] [address] [place] [address] 22068 Potassium Level September 19, 2024 7:00am 4.7 mmol/L 3.4-5.0 [facility] [id number] [address] [place] [address] 13325 Chloride Level August 13, 2024 6:17am 104 mmol/L [address] [place] [address] Laboratory [id number] [address] [place] [address] 71031 Chloride Level September 01, 2024 12:20pm 101 mmol/L [address] [place] [address] Laboratory [id number] [address] [place] [address] 23978 Chloride Level September 05, 2024 6:39am 102 mmol/L [address] [place] [address] Laboratory [id number] [address] [place] [address] 30244 Chloride Level September 19, 2024 7:00am 100 mmol/L [address] [place] [address] Laboratory [id number] [address] [place] [address] 81466 Carbon Dioxide Level August 13, 2024 6:17am 22 mmol/L [address] [facility] [id number] [address] [place] [address] 31693 Carbon Dioxide Level September 01, 2024 12:20pm 26 mmol/L [address] [facility] [id number] [address] [place] [address] 08997 Carbon Dioxide Level September 05, 2024 6:39am 25 mmol/L [address] [facility] [id number] [address] [place] [address] 73183 Carbon Dioxide Level September 19, 2024 7:00am 20 mmol/L Below low normal [address] [facility] [id number] [address] [place] [address] 96577 Anion Gap August 13, 2024 6:17am 9 mmol/L [address] [facility] [id number] [address] [place] [address] 77373 Anion Gap September 01, 2024 12:20pm 10 mmol/L [address] [place] [address] Laboratory [id number] [address] [place] [address] 06680 Anion Gap September 05, 2024 6:39am 9 mmol/L [address] [facility] [id number] [address] [place] [address] 27079 Anion Gap September 19, 2024 7:00am 16 mmol/L Above high normal [address] [facility] [id number] [address] [place] [address] 17483 Blood Urea Nitrogen August 13, 2024 6:17am 9 mg/dL 06-11 [place]: 3 on 08/12/24-05 [facility] [id number] [address] [place] [address] 42419 Blood Urea Nitrogen September 01, 2024 12:20pm 8 mg/dL 06-11 [facility] [id number] [address] [place] [address] 39375 Blood Urea Nitrogen September 05, 2024 6:39am 4 mg/dL Below low normal 06-11 [facility] [id number] [address] [place] [address] 61465 Blood Urea Nitrogen September 19, 2024 7:00am 8 mg/dL 06-11 [facility] [id number] [address] [place] [address] 16473 Creatinine August 13, 2024 6:17am 0.60 mg/dL Below low normal 0.7-1.0 [facility] [id number] [address] [place] [address] 01137 Creatinine September 01, 2024 12:20pm 0.70 mg/dL 0.7-1.0 [facility] [id number] [address] [place] [address] 42588 Creatinine September 05, 2024 6:39am 0.60 mg/dL Below low normal 0.7-1.0 [facility] [id number] [address] [place] [address] 32822 Creatinine September 19, 2024 7:00am 0.60 mg/dL Below low normal 0.7-1.0 [facility] [id number] [address] [place] [address] 39625 Estimat Glomerular Filtration Rate August 13, 2024 6:17am > 60 >59 > OR = 60 ml/min/1.73 square metersThe MDRD formula used to calculate the eGFR result has not been validated in patients > 70 years of age. [facility] [id number] [address] [place] [address] 68787 Estimat Glomerular Filtration Rate September 01, 2024 12:20pm > 60 >59 > OR = 60 ml/min/1.73 square metersThe MDRD formula used to calculate the eGFR result has not been validated in patients > 70 years of age. [facility] [id number] [address] [place] [address] 14028 Estimat Glomerular Filtration Rate September 05, 2024 6:39am > 60 >59 > OR = 60 ml/min/1.73 square metersThe MDRD formula used to calculate the eGFR result has not been validated in patients > 70 years of age. [facility] [id number] [address] [place] [address] 48724 Estimat Glomerular Filtration Rate September 19, 2024 7:00am > 60 >59 > OR = 60 ml/min/1.73 square metersThe MDRD formula used to calculate the eGFR result has not been validated in patients > 70 years of age. [facility] [id number] [address] [place] [address] 33158 Estimated Creatinine Clearance Calc August 13, 2024 6:17am 90 mL/min For use in prescription drug dose determination only. Reference ranges have not been establishe for this calculation. [facility] [id number] [address] [place] [address] 45162 Estimated Creatinine Clearance Calc September 01, 2024 12:20pm Not Reportable [facility] [id number] [address] [place] [address] 80088 Estimated Creatinine Clearance Calc September 05, 2024 6:39am 90 mL/min For use in prescription drug dose determination only. Reference ranges have not been establishe for this calculation. [facility] [id number] [address] [place] [address] 94098 Estimated Creatinine Clearance Calc September 19, 2024 7:00am 90 mL/min For use in prescription drug dose determination only. Reference ranges have not been establishe for this calculation. [facility] [id number] [address] [place] [address] 00256 Glucose Level August 13, 2024 6:17am 103 mg/dL -110 [facility] [id number] [address] [place] [address] 83941 Glucose Level September 01, 2024 12:20pm 91 mg/dL -110 [facility] [id number] [address] [place] [address] 01332 Glucose Level September 05, 2024 6:39am 89 mg/dL -110 [facility] [id number] [address] [place] [address] 25786 Glucose Level September 19, 2024 7:00am 92 mg/dL -110 [facility] [id number] [address] [place] [address] 92878 Lactic Acid Level September 07, 2024 10:04pm 1.3 mmol/L 0.7-2.0 [facility] [id number] [address] [place] [address] 38380 Calcium Level August 13, 2024 6:17am 8.6 mg/dL 8.4-10.2 [facility] [id number] [address] [place] [address] 76196 Calcium Level September 01, 2024 12:20pm 9.1 mg/dL 8.4-10.2 [facility] [id number] [address] [place] [address] 81630 Calcium Level September 05, 2024 6:39am 8.3 mg/dL Below low normal 8.4-10.2 [facility] [id number] [address] [place] [address] 16776 Calcium Level September 19, 2024 7:00am 9.3 mg/dL 8.4-10.2 [facility] [id number] [address] [place] [address] 68666 Total Bilirubin August 13, 2024 6:17am 0.2 mg/dL 0.2-1.3 [facility] [id number] [address] [place] [address] 28406 Total Bilirubin September 07, 2024 10:04pm 0.5 mg/dL 0.2-1.3 [facility] [id number] [address] [place] [address] 49937 Aspartate Amino Transf (AST/SGOT) August 13, 2024 6:17am 16 U/L [facility] [id number] [address] [place] [address] 10458 Aspartate Amino Transf (AST/SGOT) September 07, 2024 10:04pm 19 U/L [address] [place] [address] Laboratory [id number] [address] [place] [address] 15906 Alanine Aminotransfer ase (ALT/SGPT) August 13, 2024 6:17am 8 U/L [address] [place] [address] Laboratory [id number] [address] [place] [address] 06199 Alanine Aminotransfer ase (ALT/SGPT) September 07, 2024 10:04pm 10 U/L 35 [facility] [id number] [address] [place] [address] 56450 C-Reactive Protein August 12, 2024 5:42am < 0.5 mg/dL <1.1 [facility] [id number] [address] [place] [address] 74203 Total Protein August 13, 2024 6:17am 6.0 g/dL Below low normal 6.3-8.2 [facility] [id number] [address] [place] [address] 51085 Total Protein September 07, 2024 10:04pm 8.0 g/dL 6.3-8.2 [facility] [id number] [address] [place] [address] 86303 Albumin August 13, 2024 6:17am 3.5 g/dL 3.5-5.1 [facility] [id number] [address] [place] [address] 85927 Albumin September 07, 2024 10:04pm 4.0 g/dL 3.5-5.1 [facility] [id number] [address] [place] [address] 44356 Alkaline Phosphatase August 13, 2024 6:17am 47 U/L 38-126 [facility] [id number] [address] [place] [address] 79562 Alkaline Phosphatase September 07, 2024 10:04pm 74 U/L 38-126 [facility] [id number] [address] [place] [address] 28507 Lipase August 07, 2024 1:03pm 25 U/L 23-300 [facility] [id number] [address] [place] [address] 70658 Lipase September 07, 2024 10:04pm 15 U/L Below low normal 23-300 [facility] [id number] [address] [place] [address] 84090 Carcinoembryo anuel Antigen August 08, 2024 6:01pm 5.5 ng/mL Above high normal 0.0-3.0 Hand Edger: Ortho Clinical DiagnosticsMeth od: ImmunoassayCEA results determined by assays using different manufacturers or methods may not be comparable. [facility] [id number] [address] [place] [address] 89418 Carcinoembryo anuel Antigen September 11, 2024 8:02pm 3.9 ng/mL Above high normal 0.0-3.0 Hand Edger: Ortho Clinical DiagnosticsMeth od: ImmunoassayCEA results determined by assays using different manufacturers or methods may not be comparable. [facility] [id number] [address] [place] [address] 20726 Bedside Urine HCG, Qualitative August 07, 2024 1:00pm Negative Negative Negative Telcor POC Bedside Urine HCG, Qualitative September 12, 2024 8:52am Negative Negative Negative Telcor POC Urine Casts August 07, 2024 1:03pm 2 [facility] [id number] [address] [place] [address] Urine Casts September 19, 2024 10:34am 0-2 [facility] [id number] [address] [place] [id number] Add Urine Microanalysis September 19, 2024 10:34am Reviewed [facility] [id number] [address] [place] [id number] Microbiology Results Procedure Source Result Collection Date/Time Result Date/Time Result Comment Performing Site Blood Culture Blood August 07, 2024 4:19pm August 13, 2024 2:58am [facility] Blood September 02, 2024 8:34am September 08, 2024 4:29am [facility] Blood Culture Blood September 08, 2024 1:06am September 13, 2024 10:34am [facility] Urine Culture Urine Clean Catch Escherichia Coli August 07, 2024 1:03pm August 09, 2024 7:58am [facility] Reports Author [facility] September 08, 2024 5:47am Report Date/Time September 08, 2024 5 :48am [address] [address] [address] Scan Report Signed Patient: Libby Maldonado : 1990 MR#: [id number] Age: 33 Acct:[id number] Loc: [id number] 317-02 ADM Date: 09/08/[address]: Elham Vences M.D. Ordering Physician: Sanjiv Burns MD Date of Service: 09/07/24 Procedure(s): CT abdomen pelvis w con Accession Number(s): [id number] cc: Elham Vences MD; Sanjiv Burns MD; UNKNOWN,DOCTOR~ CT of the Abdomen and Pelvis: Indication: Diverticulitis Technique: 2.5 mm axial scans were obtained through the abdomen and pelvis following intravenous administration of 100 cc of Omnipaque 350. Dose reduction technique was used on this scan by utilizing automated exposure control and iterative reconstruction technique. The dose-length product (DLP) was 202.79 mGy-cm. COMPARISON: 09/01/2024 Findings: Scans through the lung bases are unremarkable. The liver, spleen, pancreas, gallbladder, adrenals and kidneys are within normallimits. No evidence of aortic aneurysm. No lymphadenopathy. Wall thickening of the sigmoid colon again present. Status post interval placement of percutaneous drainage catheter within the pericolonic abscess, which currently measures 4.8 x 3.7 cm in size, similar to prior exam. There is now probable additional extension of abscess into the anterior abdominal wall and subcutaneous soft tissues in the left lower quadrant region. There is additional subcutaneous emphysema in the subcutaneous soft tissues in the lower quadrant. There is an additional posterior extension of abscess measuring 2.1 cmwithin the peritoneal cavity (axial image 109), similar to prior exam. There is a peripherally enhancing pelvic abscess in the pelvic cul-de-sac between the lower uterine segment/cervix and the rectum, measuring up to approximately 7.2 x2.3 x 1.5 cm in extent (axial image 144 for example). Images through the pelvis were performed. Urinary bladder unremarkable. No otheradnexal mass present. IUD in place. Impression: Status post interval placement of percutaneous drainage catheter in the left lower quadrant pericolonic abscess. The abscess is more extensive as compared toprior exam, now with extension into the anterior abdominal wall and subcutaneoussoft tissues in the left lower quadrant. There is additional stranding subcutaneous emphysema in the left lower quadrant, which could be postproceduralin nature versus additional soft tissue infection. Additional 7.2 x 2.3 x 1.5 cm pelvic abscess in the pelvic cul-de-sac, as detailed above. Persistent underlying wall thickening of the sigmoid colon. Reviewed, dictated and finalized at location M. Dictated By: Steve Staples MD 09/08/24 0541 Signed By: <Electronically signed by Steve Staples MD in OV> 09/08/24 0547 Author Marco A [facility] September 08, 2024 2:28pm Report Date/Time September 08, 2024 2 :30pm [facility] [address] [place] [address] [address] [address] Scan Report Signed Patient: Libby Maldonado : 1990 MR#: [id number] Age: 33 Acct:[id number] Loc: [id number] 317-02 ADM Date: 09/08/[address]: Elham Vences M.D. Ordering Physician: Barbie Smith APN Date of Service: 09/08/24 Procedure(s): CT guide absc cath placement Accession Number(s): [id number] cc: Elham Vences MD; UNKNOWN,DOCTOR; Barbie Smith APN~ EXAMINATION: CT guide absc cath placement DATE: 09/08/2024 13:21 INDICATION: Left lower quadrant abscess for perforated diverticulitis with feculent drainage extending along the catheter tract external to the catheter. Request for drainage catheter upsizing. TECHNIQUE: The procedure including the risks and benefits was discussed with thepatient. Risks discussed included bleeding and infection. The patient understoodthe risks and benefits and agreed to proceed. The patient was confirmed to be receiving appropriate antibiotic coverage. The skin existing percutaneous drainage catheter and surrounding skin in the left lower quadrant were prepped and draped in usual sterile fashion. Anesthetic was administered with 1% lidocaine subcutaneously. 5 mL 1% lidocaine was also injected through the catheter. Moderate sedation was achieved with 2 mg Versed IV and 125 mcg fentanyl IV. The existing catheter was cut and a J-wire advanced through the catheter into the abscess cavity with position confirmed by CT. The prior catheter was removed over the wire and utilizing Seldinger technique the tract was dilated to 14 Malagasy. Attempt was made to place a 14 Malagasy catheter over the loop was unable to be appropriately formed. A 12 Malagasy drainage catheter was then placed over the wire with position confirmed by CT. The pigtail tip wasformed and locked. There was spontaneous drainage of a significant amount of purulent/feculent fluid along the catheter tract during dilation of the tract. 5mL of a 1:10 dilution of Omnipaque-350 water soluble contrast was injected through the catheter to assess for the size of the residual abscess cavity. A 8 Fr catheter was inserted into the peritoneal fluid collection by trocar technique. The catheter was stitched to the skin with suture. Antibiotic ointment and a sterile dressing were applied. An additional adhesive fixation device was applied to the skin. The catheter was attached to suction drainage and was draining small amount of bloody purulent fluid at the conclusion of the procedure. There were no immediate complications. The dose-length product was 270.86 mGy-cm. FINDINGS: CT images demonstrate the catheter within the left lower quadrant abscess cavity. The injected contrast demonstrates the catheter within the decompressed abscess cavity at the conclusion of the procedure. There was extension of contrast across a small fissures communication with the colon with small amount of intraluminal contrast seen extending into the distal descending colon. The fistulous tract is best appreciated on series 9, image 20. IMPRESSION: 1. Successful CT-guided upsizing to 12 Malagasy of a prior 8.5 Malagasy left lower quadrant percutaneous abscess drain.. 2. The catheter will be managed by Dr. Vences. 3. Patent fistulous draining tract with small amount of the water-soluble contrast injected into the percutaneous abscess drain extending into the proximal sigmoid colon and refluxing proximally into the distal descending colon. Reviewed, dictated and finalized at location A. Dictated By: Marco A Alvarado MD 09/08/24 1414 Signed By: <Electronically signed by Marco A Alvarado MD in OV> 09/08/24 1428 Author Marco A Alvarado [facility] September 10, 2024 9:05am Report Date/Time September 10, 2024 9 :07am [facility] [address] [address] [address] Scan Report Signed Patient: Libby Maldonado : 1990 MR#: [id number] Age: 33 Acct:[id number] Loc: [id number] 317-02 ADM Date: 09/08/[address]: Elham Vences M.D. Ordering Physician: Barbie Smith APN Date of Service: 09/10/24 Procedure(s): CT abdomen pelvis w con Accession Number(s): [id number] cc: Elham Vences MD; UNKNOWN,DOCTOR; Barbie Smith APN~ EXAMINATION: CT abdomen pelvis w con DATE: 09/10/2024 08:50 INDICATION: Perisigmoid abscess with drain TECHNIQUE: Computed tomography (CT) of the abdomen and pelvis was performed qupp146 mL Omnipaque-350 intravenous contrast. Automated exposure control and iterative reconstruction technique were employed. The dose-length product was 219.38 mGy- cm. COMPARISON: 09/07/2024 FINDINGS: Lung bases are clear. Heart size is normal. No pericardial or pleural effusion. Calcified hepatic nodule consistent with old granulomatous disease. The gallbladder is dilated to 4.7 cm but without evident gallbladder wall thickeningor pericholecystic inflammatory stranding to suggest acute cholecystitis in thislikely due to metastasis date. There is a 3 mm gallstone dependently near the neck of the gallbladder. Spleen, pancreas, bilateral adrenal glands and kidneys are normal. There has been interval upsizing of a percutaneous abscess drainage catheter located within a 2.2 x 1.9 cm fluid attenuation abscess cavity in the left lower quadrant. There is a small amount of gas and fluid scattered throughout smaller extension of the abscess within an approximately 5.0 x 3.7 cmregion of phlegmonous change which extends into the overlying left anterior abdominal wall musculature. There is also scattered gas in the overlying subcutaneous fat. No other abscesses identified. Small amount of nonorganized appearing ascites in the deep pelvis without evident loculation or organized peripheral enhancing wall. There is wall thickening and focal narrowing of the lumen of the proximal sigmoid colon likely related to diverticulitis and suggesting possible stricture. Fluid is seen throughout the more proximal distalcolon consistent with diarrhea. No dilated small bowel to suggest obstruction. Bladder is decompressed. T-shaped IUD in expected position within the anteverteduterus. Unchanged 1.9 cm right adnexal cyst. No pathologically enlarged abdominal or pelvic lymphadenopathy. Bones are unremarkable. IMPRESSION: 1. Interval upsizing of a left lower quadrant percutaneous abscess drain within a residual 2.2 x 1.9 cm abscess cavity located within a larger region of phlegmonous change with smaller of a communicating extension of the abscess. No other drainable abscess is identified. 2. Small amount of likely reactive nonorganized appearing free fluid in the deeppelvis. 3. Focal wall thickening and narrowing of the lumen of the proximal sigmoid colon potentially representing a stricture related to diverticulitis which is located at the site of a previous identified draining sinus tract evident at thetime of the drainage catheter exchange. Reviewed, dictated and finalized at location A. Dictated By: Marco A Alvarado MD 09/10/24 0853 Signed By: <Electronically signed by Marco A Alvarado MD in OV> 09/10/24 0905 Author [facility] September 19, 2024 9:41am Report Date/Time September 19, 2024 9 :43am [place] [id number] [place] [address] CT Scan Report Signed Patient: Libby Maldonado : 1990 MR#: [id number] Age: 33 Acct:[id number] Loc: [id number] 317-02 ADM Date: 09/08/[address]: Elham Vences M.D. Ordering Physician: Aguilar Lang MD Date of Service: 09/19/24 Procedure(s): CT abdomen pelvis wo con Accession Number(s): [id number] cc: Elham Vences MD; Aguilar Lang MD; UNKNOWN,DOCTOR~ EXAMINATION: CT abdomen pelvis wo con DATE: 09/19/2024 09:31 INDICATION: Leukocytosis after sigmoidectomy. TECHNIQUE: Computed tomography (CT) of the abdomen and pelvis was performed without intravenous contrast. Automated exposure control and iterative reconstruction technique were employed. The dose-length product was 186.39 mGy-cm. COMPARISON: CT abdomen and pelvis 09/10/2024 FINDINGS: The visualized portions of the lung bases are clear without pneumonia or pleural effusion. The heart size is normal. No pericardial effusion. Calcifications in the liver consistent with old granulomatous disease. The gallbladder, spleen, pancreas, adrenal glands, and kidneys are normal. There is no urolithiasis. There is an intrauterine device in expected position. There areno dilated loops of bowel. The appendix is not visualized. There is fat stranding in the left abdomen. There is a fluid collection in left paracolic gutter measuring 6.6 x 1.4 x 2.6 cm. Abdominal wall incisions are noted. There is subcutaneous gas in left anterior abdominal wall. There are no pathologicallyenlarged lymph nodes. There is trace pelvic ascites. The bones are unremarkable. IMPRESSION: 1. 6.6 x 1.4 x 2.6 cm postsurgical fluid collection in the left paracolic guttersuspicious for abscess. Reviewed, dictated and finalized at location A. Dictated By: Ranjeet Butcher MD 09/19/24 0932 Signed By: <Electronically signed by Ranjeet Butcher MD in OV> 09/19/24 0941 Author Ranjeet adan [facility] September 19, 2024 9:42am Report Date/Time September 19, 2024 9 :43am [place] [address] [place] [address] XRay Report Signed Patient: Libby Maldonado : 1990 MR#: [id number] Age: 33 Acct:[id number] Loc: [id number] 317-02 ADM Date: 09/08/[address]: Elham Vences M.D. Ordering Physician: Aguilar Lang MD Date of Service: 09/19/24 Procedure(s): XR chest 2V Accession Number(s): [id number] cc: Elham Vences MD; Aguilar Lang MD; UNKNOWN,DOCTOR~ EXAMINATION: XR chest 2V DATE: 09/19/2024 09:36 INDICATION: Postoperative leukocytosis. TECHNIQUE: Frontal and lateral views of the chest were obtained. COMPARISON: Chest 2 views 12/28/2017 FINDINGS: There is no pneumonia, pleural effusion, or pneumothorax. The heart size is normal. IMPRESSION: 1. No acute cardiopulmonary disease. Reviewed, dictated and finalized at location A. Dictated By: Ranjeet Butcher MD 09/19/24940 Signed By: <Electronically signed by Ranjeet Butcher MD in OV> 09/19/24941 Pathology Reports Author Toro De Dios [facility] September 16, 2024 2:28pm Report Date/Time September 15, 2024 2 :08pm Name: Libby Maldonado Spec Num: [id number] : 1990 MR#: [id number] Age: 33 Acct: [id number] Location: [id number] Specimen Date: 09/12/24 Provider: Aguilar Lang MD Receive Date: 09/12/24 Copies to:Aguilar Lang MD;UNKNOWN,DOCTOR;~ ___ Addendum Microsatellite instability studies MLH1 Intact MSH2 Intact MSH6 Intact PMS2 Intact Impression: All nuclear markers intact; low probability of microsatellite instability-high (MSI-H) Reviewed and Electronically Signed by: Toro De Dios MD 09/16/24 1428 Final Diagnosis A. Sigmoid colon, sigmoidectomy: - Well-differentiated adenocarcinoma (G1) Tumor size: 3.8 x 3.0 x 1.5 cm Tumor extent: Invades through muscularis propria into pericolonic tissue Macroscopic tumor perforation: Present - Lymphovascular invasion: Not identified - Perineural invasion: Not identified - Tumor budding score: Low Number of tumor buds/hotspot field: 1 - Type of polyp in which invasive carcinoma arose: Tubular adenoma - Margin status: Tumor involves the margins. Margin involved by invasive carcinoma: Radial and mesenteric - Regional lymph node status: All regional lymph nodes negative for tumor Number of lymph nodes with tumor: 0 Number of lymph nodes examined: 12 Tumor deposits: Not identified - Distant metastasis: Not applicable - pTNM classification: pT4a pN0 pM: Not applicable - Additional findings: Pericolonic abscess with foreign body material and granulomatous reaction secondary to rupture Fibrovascular adhesions B. Omentum, partial omentectomy: - Chronic septal omentitis - Negative for malignancy. C. Abdominal wall tissue abutting tumor, resection: - Granulation tissue with abscess formation and foreign body reaction - Negative for malignancy. Reviewed and Electronically Signed by: Toro De Dios MD 09/15/24 3597 Frozen Section A. Sigmoid colon with perforation, immediate examination: - Colonic wall tumor consistent with malignancy - No frozen examination was performed. Gross Description A. Received fresh for intraoperative gross evaluation labeled with the patient's identification and ???sigmoid colon with perforation, frozen??? is an unoriented segment of colon measuring 10.9 x 3.2 cm. The specimen is received stapled at both mucosal margins. The serosa is west-pink and dull with a focal strictured area with a transmural perforation, surrounding irregular serosa, and multifocal areas of purulent exudate present 3.7 cm from the closest resection margin. The strictured area is inked green. Thesurrounding pericolonic fat is indurated. An adherent indurated portion of measuring 6.2 x4.5 x 1.3 cm is present and inked black. A focal disrupted hemorrhagic area measuring 3.2 x 3 cm is present on peritonealized surface of the omentum and is contiguous with the perforated area of the colon following a tract through the fat. Upon opening, the perforated area is surrounded by a circumferential nodular centrally ulcerated west-red mass with raised serpiginous borders measuring 3.8 x 3.0 x 1.5 cm. The mass measures 2.5 cm from the closest resection margin, 5.7 cm from the opposing margin, is open to the serosal surface and involves the attached omentum, grossly invades the pericolonic fat to a depth of 1.7 cm, and measures 2.5 cm from the radial margin. The tissue surrounding the perforation is hemorrhagic to west-white and friable. The surrounding pericolonic fat is indurated with mass and fibrotic tissue making it difficult to grossly determine the extent of the mass. The uninvolved mucosa is west-pink with bowel folds and the wall thickness measures 0.3 cm. A thorough lymph node dissection is performed. Biochemistry Professor sections are submitted as follows: A1-closest mucosal margin shaved, A2-opposing mucosal margin shaved, A3-W90-ktec to transmural perforation entirely submitted, A14- mass to perforation tract, N99-ubnzdzgkw pericolonic fat surrounding perforation tract, Q32-qsqz and perforation tract to adherent omentum including disrupted hemorrhagic area, L54-kkxxgeuvec disrupted omentum, W98-sqnx to omentum, S90-wwurtgtkhu fat surrounding perforation, U99-fseziykpyu colon, H39-I57-juvjlqma intact lymph nodes, A24- largest lymph node bisected. B. Received in formalin labeled with the patient's identification and ???omentum around sigmoid mass??? is an irregular piece of finely lobulated pink yellow tissue consistent withomentum measuring 29.7 x 5.0 x 2.0 cm. Two sutures are present on the indurated aspect of the omentum from which to the assumed to be to portion adjacent to the sigmoid mass. The cut surface of the area is indurated, west-yellow and smooth with west-white stranding. An obvious masses absent. The remaining cut surfaces pink-yellow and finely lobulated. Biochemistry Professor sections are submitted in cassettes B1-B5. C. Received in formalin labeled with the patient's identification and ???abdominal wall adjacent to mass and abdomen??? is a 2.5 x 2.5 x 1.5 cm aggregate of irregular malleable pieces of west-pink and red-brown tissue. The specimen is entirely submitted in cassettes C1-C2. Cardiology Reports Author [facility] September 08, 2024 2:29pm Report Date/Time September 08, 2024 2 :29pm [facility] [address] [address] Electrocardiograph Report Signed Patient: Libby Maldonado : 1990 MR#: [id number] Age: 33 Acct:[id number] Loc: [id number] 317-02 ADM Date: 09/08/[address]: Elham Vences M.D. Ordering Physician: Sanjiv Burns MD Date of Service: 09/08/24 Procedure(s): CA 12 lead EKG Accession Number(s): [id number] cc: ~ Test Date: 2024-09-07 21:41:36 Measurements Intervals [place] Rate: 88 P: 40 AL: 119 QRS: 62 QRSD: 81 T: 51 QT: 367 QTc: 444 Interpretive Statements SINUS RHYTHM No previous ECG available for comparison Electronically Signed On 09-08-2024 14:28:50 CDT by Todd Coto M.D. Dictated By: Todd Coto MD 09/07/24 2141 Signed By: <Electronically signed by Todd Coto MD in OV> 09/08/24 1429 Vital Signs Vital Reading Result Reference Range Collection Date/Time Height 62 [in_i] August 07, 2024 9:10pm Weight 53.00 kg August 07, 2024 9:10pm Body Temperature 97.9 [degF] 97.6-99.6 July 272023 6:00am Heart Rate 79 /min 60-100 August 13, 2024 6:00am Respiratory rate 18 /min 11-14July 272023 6:00am Oxygen saturation by Pulse oximetry [...] rate 8 L/min Oct janet 2023 1:30pm Advance Directives Advance Directive Response Recorded Date/ Time Current Advance Directive No Octobe r 2023 12:54am Current Advance Directive No Septem 2023 6:33pm Current Advance Directive No Octobe r 2023 9:37pm Insurance Providers Guarantor Libby Bell Joel Address [address] [facility] [address] Contact Info. Home Phone: Payer Policy Id Coverage Id Subscriber's Name Subscriber Id Effective Date Expiration Date [place] [id number] Libby Maldonado [id number] 2017 Encounters Encounter Location(s) Arrival/Admit Date Discharge /Depart Date Provider(s) Discharged Inpatient [facility] 2 Medical August 07, 2024 6:52pm August 13, 2024 12:21pm Alysia Eric APRN Departed Physician/Provi frankie Office Visit [facility] September 01, 2024 9:05am September 01, 2024 9:57am Aguilar Lang MD Departed Clinical [facility] Imaging September 01, 2024 11:44am September 01, 2024 11:45am Aguilar Lang MD Discharged Inpatient [facility] 3 Med Surg September 01, 2024 9:54pm September 05, 2024 12:45pm Elham Vences MD Discharged Inpatient [facility] 3 Med Surg September 08, 2024 12:14am September 19, 2024 4:05pm Elham Vences MD Recent Diagnosis Onset Date Constipation Constipation Dyschezia Anemia Abdominal wall abscess 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 Colon perforation Anemia Functional Status Observation Response Date Recorded Functional capacity on discharge independent amb ulation September 19, 2024 2:20pm Functional capacity on discharge independent amb ulation August 13, 2024 9:31am Functional capacity on discharge independent amb ulation September 05, 2024 10:36am Mental Status Observation Response Date Recorded patient oriented x3 Yes August 2:54pm patient oriented x3 Yes August 132023 10:07am patient oriented x3 Yes August 1:01pm Assessments Diagnosis Onset Date Resolution Status Constipation acute Constipation acute Dyschezia acute Anemia chronic Abdominal wall abscess acute Colocutaneous fistula acute Colon cancer without distant metastasis acute Colon perforation acute Anemia chronic Plan of Treatment Author Natalie Mills [facility] Authored September 01, 2024 10 :10am Libby [...] 01, 2024 5:38pm September 01, 2024 5:38pm Code Status September 08, 2024 12:14am Octob er 2023 12:14am Future Visits Future appointment information is unavailable Referrals to Other Providers Reason for Referral Referral Start Date Provider Provider Contact Information Provider Address Appointment has already been scheduled Aguilar Lang MD Work Phone: [phone] [facility] [address] [place] [address] Santos office to make appointment. Aguilar Lang MD Work Phone: [address] [place], [place] [id number] Call Dr. Santos office to make appointment Aguilar Lang MD Work Phone: [phone] [place] [address] [place], [place] [id number] Future Procedures Procedure Name Ordered Date Scheduled Date Admit as Inpatient September 01, 2024 5:38pm Octo 2023 5:38pm Complete Blood Count with Diff September 19 2:34pm Admit as Inpatient September 08, 2024 12:14am Oc tober 2023 12:14am Admit as Inpatient September 11, 2024 5:33pm Oct janet 2023 5:33pm Discharge Order September 19, 2024 2:20pm Octobe r 2023 3:00pm Consult to Dietitian August 11, 2024 9:55am [...] Antibiotic Form Antibiotic Form Pain Management (DC) Goals Acute Goals Author Authored Date Verbalizes/Demonstrates Understanding *Demonstrates understanding of teaching [facility] September 19, 2024 3:53am Participate in Discharge Carlos nning In order to achieve this outcome, the patient/ and or family will: * assist in identification of DME needs * assist in identification of community resource needs * assist in identification of appropriate discharge destination [facility] September 19, 2024 4:38pm Develop pain management prog samson In order to achieve this outcome the patient will: * Use the pain scale appropriately * Identify options for pain control - Analgesics - Narcotics - Non-medication measures [facility] September 19, 2024 4:38pm Increase knowledge regarding pain mgmt *Demonstrates understanding of teaching [facility] September 18, 2024 4:16pm Increase knowledge - smoking cessation Pt will verbalize understanding of smoking cessation resources [facility] September 19, 2024 3:53am Improved infection * Maintains vital signs WNL * Evidences no purulent drainage from wounds, incisions, and tubes * Maintains optimal lab values [facility] September 19, 2024 4:38pm Exhibit intact skin * Skin remains intact [facility] September 19, 2024 4:38pm Maintains or Improves Mobili ty Maintains mobility or exhibits improvement in mobility [facility] September 19, 2024 3:53am Improved nutritional status [facility] September 19, 2024 4:38pm Demonstrate/Verbalize Minima l Pain Pt will Demonstrate/Verbalize Minimal Pain to Surgical Intervention 1. Assess Location, Duration, and Intensity of Pain 2. Change Position as Allowed 3. Use Therapeutic Communication 4. Relay Complaints of Pain to Primary Nurse [facility] September 17, 2024 3:42am Exhibits optimal GI function *Exhibits adequate intake and output *Exhibits adequate nutritional status [facility] September 19, 2024 3:52am Maintain fluid and electroly te balance * Understands adequate fluid intake * Maintains vital signs WNL * Maintains optimal electrolyte values * Maintains balanced intake and output * Maintains BUN and Hct WNL * Maintains normal skin turgor [facility] September 19, 2024 3:53am Exhibit optimal tissue integ rity * Exhibits granulation/healing at site * Exhibits decreased drainage at site * Exhibits no s/s of infection * Exhibits a decrease in lesion size * Maintains nutritional status * Maintains hydration status * Maintains optimal lab values [facility] September 19, 2024 3:52am Pt will Experience Minimal A nxiety Patient will Demonstrate/Verbalize Minimal Anxiety Prior to Surgery 1. Silva Patient by Explaining Room & Equipment 2. Allow Patient to Verbalize and Answer Questions 3. Monitor Patient Comfort i.e. Provide Warm Blankets 4. Indicate Special Needs r/t Development Age 5. Provide Emotional Support and Reassuring Atmosphere 6. Describe Sequence of Events During Pre-Op Period 7. Confirm Written and Verbal Consent for Operative Procedure [facility] September 17, 2024 3:42am Demonstrate/Verbalize Minima l Pain Pt will Demonstrate/Verbalize Minimal Pain to Surgical Intervention 1. Assess Location, Duration, and Intensity of Pain 2. Change Position as Allowed 3. Use Therapeutic Communication 4. Relay Complaints of Pain to Primary Nurse [facility] September 17, 2024 3:42am Impaired Breathing Patient will have adequate ventilation and oxygenation 1. Monitor Airway Status 2. Provide Stimulation 3. Administer Oxygen Therapy as Indicated 4. Reposition Patient [facility] September 17, 2024 3:42am Minimal Nausea Patient will Verbalize Minimal Nausea Prior to Discharge 1. Assess Prior History of Post-Op Nausea 2. Monitor Intake and Output 3. Administer Adequate IV Fluids 4. Limit PO Intake 5. Administer Antiemetics as Ordered 6. Apply Supplemental Oxygen 7. Minimize Movement of Patient [facility] September 17, 2024 3:42am Remain free of injury *Follows Safety Interventions [facility] September 19, 2024 3:53am Maintains/improves level of orientation * Orients to person/place/time/situation [facility] September 19, 2024 3:53am Verbalizes/Demonstrates Understanding *Demonstrates understanding of teaching [facility] August 13, 2024 12:21pm Participate in Discharge Carlos nning In order to achieve this outcome, the patient/ and or family will: * assist in identification of DME needs * assist in identification of community resource needs * assist in identification of appropriate discharge destination [facility] August 13, 2024 12:21pm Develop pain management prog samson In order to achieve this outcome the patient will: * Use the pain scale appropriately * Identify options for pain control - Analgesics - Narcotics - Non-medication measures [facility] August 13, 2024 12:21pm Increase knowledge regarding pain mgmt *Demonstrates understanding of [facility] August 13, 2024 12:21pm Increase knowledge - smoking cessation Pt will verbalize understanding of smoking cessation resources [facility] August 13, 2024 12:21pm Improved infection * Maintains vital signs WNL * Evidences no purulent drainage from wounds, incisions, and tubes * Maintains optimal lab values [facility] August 13, 2024 12:21pm Exhibits optimal GI function *Exhibits adequate intake and output *Exhibits adequate nutritional status [facility] August 13, 2024 12:21pm Maintain fluid and electroly te balance * Understands adequate fluid intake * Maintains vital signs WNL * Maintains optimal electrolyte values * Maintains balanced intake and output * Maintains BUN and Hct WNL * Maintains normal skin turgor [facility] August 13, 2024 12:21pm Remain free of injury *Follows Safety Interventions [facility] August 10, 2024 2:09pm Verbalizes/Demonstrates Understanding *Demonstrates understanding of teaching [facility] September 05, 2024 1:33pm Participate in Discharge Carlos nning In order to achieve this outcome, the patient/ and or family will: * assist in identification of DME needs * assist in identification of community resource needs * assist in identification of appropriate discharge destination [facility] September 05, 2024 1:33pm Develop pain management prog samson In order to achieve this outcome the patient will: * Use the pain scale appropriately * Identify options for pain control - Analgesics - Narcotics - Non-medication measures [facility] September 05, 2024 1:33pm Increase knowledge regarding pain mgmt *Demonstrates understanding of teaching [facility] September 05, 2024 1:33pm Increase knowledge - smoking cessation Pt will verbalize understanding of smoking cessation resources [facility] September 05, 2024 1:33pm Improved infection * Maintains vital signs WNL * Evidences no purulent drainage from wounds, incisions, and tubes * Maintains optimal lab values [facility] September 05, 2024 1:33pm Demonstrate/Verbalize Minima l Pain Pt will Demonstrate/Verbalize Minimal Pain to Surgical Intervention 1. Assess Location, Duration, and Intensity of Pain 2. Change Position as Allowed 3. Use Therapeutic Communication 4. Relay Complaints of Pain to Primary Nurse [facility] September 05, 2024 1:33pm Improved nutritional status [facility] September 05, 2024 1:33pm Exhibits optimal GI function *Exhibits adequate intake and output *Exhibits adequate nutritional status [facility] September 05, 2024 1:33pm Hospital Discharge Instructions Additional Instructions Remove dressings to incision and left lower quadrant to shower. Ambulate 5-10 minutes at least 3 times a day. May drive a car on Sunday No lifting over 20 lb. No heavy exertion. Place silver gel in the open wound on upper incision and place small amount of 4 x 4 gauze in the wound. Cover with 4 x [address] silver gel in the left lower quadrant wound. No packing here, just cover with 4 x 4 gauze. Prescriptions for ciprofloxacin and metronidazole have been sent to your pharmacy. Prescriptions for Percocet and Ketoralac have been sent as well. Scripts for Compazine and Iron supplement have also been sent. Percocet, Ketoralac, and Compazine are on an as-needed basis. Antibiotics and Ferrous Sulfate are to be taken regularly as written on the bottle. Call or go to the emergency room for temperature over 100.5, vomiting, severe abdominal pain, persistent bleeding, or other significant change in condition. Appointment has been set up to see Dr. Lang at 10:15 a.m. on Sunday09/22/2024. Please arrive 15-30 minutes early. We will discuss outpatient abscess drainage procedure at the Sunday office visit. You will need to get another CBC on Sunday. It can be done before or after your office visit. Discharge Summary Note Author Aguilar Rickey [facility] September 19, 2024 2:44pm Note Date/Time September 19, 2024 1 :45pm [facility] [address] [place] [id number] Discharge Summary Signed Patient: Libby Maldonado MR#: [id number] : 1990 Acct:[id number] Age: 33 ADM Date: 09/08/24 Loc: [id number]: Elham Vences M.D. cc: Elham Vences MD; Sanjiv Burns MD; UNKNOWN,DOCTOR~ DS: Admitting Diagnosis Discharge Date 09/19/2024 Admitting Diagnosis * Diverticulitis with abscess * Abdominal wall abscess * Chronic anemia DS: Discharge Diagnosis Discharge Diagnosis (1) Colon cancer without distant metastasis: Code(s): C18.9 - Malignant neoplasm of colon, unspecified Status: Acute Assessment and Plan: Stage II B perforated cancer of the sigmoid colon (2) Colon perforation: Code(s): K63.1 - Perforation of intestine (nontraumatic) Status: Acute Assessment and Plan: Due to malignancy (3) Colocutaneous fistula: Code(s): K63.2 - Fistula of intestine Status: Acute Assessment and Plan: Associated with the colon perforation and abscess (4) Abdominal wall abscess: Code(s): L02.211 - Cutaneous abscess of abdominal wall Status: Acute Assessment and Plan: Healing (5) Anemia: Qualifiers: Anemia type: other cause Other causes of anemia: chronic disease, other Qualified Code(s): D63.8 - Anemia in other chronic diseases classified elsewhere Code(s): D64.9 - Anemia, unspecified Status: Chronic Assessment and Plan: Improving. Home on iron supplement DS: Summary Hospital Course Hospital Course: Patient is a 33-year-old woman who had been having problems with left lower quadrant pain and presumptive diagnosis of diverticulitis since April of this year. She had been admitted to [facility] in April and again in June with diverticulitis. She was treated with antibiotics and discharged. This came back a 3rd time around 08/07/2024. On this occasion, she went to [facility] Emergency Room. Again her imaging suggested diverticulitis but now with 2 small abscesses. She was admitted to the hospital She was treated with intravenous antibiotics as an inpatient for 6 days and then discharged on oral antibiotics for a week. Unfortunately, her symptoms recurredand she had to be readmitted with, now a 5 cm abscess, on 09/01/2024. The pelvic abscess was drained with a pigtail catheter under CT guidance on 09/02/2024. She was improving and was discharged on 09/05/2024 with the pigtail catheter in place. She was home for 3 days but had recurring and severeabdominal pain with west colored drainage now seeping around the pigtail catheter. She came back to the emergency room and was admitted on 09/08/2024. CT scan was repeated and showed the abscess had actually enlarged and was adherent to the abdominal wall in the left lower quadrant. It was felt the pigtail catheter diameter was too small for the thick drainage. That same day of admission, she went back to CT and an 8.5 Malagasy pigtail catheter was exchanged for a 12 Malagasy pigtail catheter. Patient improved over the next 48 hours but was draining now stool from the pigtail catheter and sometimes from around the pigtail catheter. By the 3rd hospital day, 09/11/2024, she was leaking a large enough volume of stool from around the pigtail catheter that a stoma appliance had to be placed over the opening. After discussion, she agreedto go ahead with laparotomy for sigmoid colon resection and possibly colostomy. She did go to surgery on 09/12/2024 and a large mass with perforation adherent to left lower quadrant of the abdominal wall and emanating from the sigmoid colon was found. There were no diverticulitis noted. She underwent sigmoid colon resection. Gross inspection of the sigmoid by pathology was suspicious for a tumor. She was able to have an end-to-end hand-sewn colonic anastomosis after the resection. An abdominal wall abscess was noted as well. Omentum adherent to the tumor at the abdominal wall was resected as a specimen. A rim of peritoneum at the attachment of the sigmoid colon on the abdominal wall was also removed. Final pathology showed a T4a N0 M0 sigmoid colon cancer. Neitherthe omentum or the abdominal wall biopsies showed evidence of tumor. This wouldbe a stage II B malignancy with perforation. Following surgery, patient did well for several days. She had quite a bit of postoperative pain. The left lower quadrant abscess site was packed but then healed up fairly quickly. She was eating solid food and much more comfortable, having bowel movements and ableto ambulate independently. Her white blood cell count went from normal to 11,800 on 09/18. Examination showed that the upper 4 cm of her abdominal wound had a pocket of cloudy fluid. This area was opened. The fascia was intact. The wound did not track any further toward the pubis. It looked good again on 09/19/2024. Silver gel dressings with gauze were started. Her white blood cellcount however went up to 16,000 on 09/19/2024. She still had no fever, no tachycardia, no increase in abdominal pain or diarrhea. She was eating well. CT scan of the abdomen and pelvis was done and showed a left lower quadrant abscess. CT guided pigtail catheter drain was then placed in the abscess on 09/19/2024. Patient tolerated this well and was very anxious to be discharged. She is discharged today 09/19/2024 with plans to follow-up in the office with Dr. Lang on 09/22/2024. She was instructed on management of the pigtail catheter as far as emptying the drainage bag and recording the output. She was instructed on maintaining the suction on the drainage catheter. She will be staying with a friend and will perform silver gel gauze dressings to the open area of the upper abdominal wound as well as the small residual left lower quadrant abscess wound. She is discharged today in improved condition with veryshort-term follow- up with Dr. Lang in 3 days. Status at Discharge Functional status at discharge: independent ambulation Overall status at discharge: patient is progressing back to baseline Time Spent with Patient Time attestation: Total time spent providing and/or coordinating discharge services: Time spent: Greater than 30 minutes DS: Data Data Completed and Pending Completed studies during hospitalization: Pending at discharge 09/12/24 10:37 Surgical [PTH] Routine Surgical [PTH] Routine Surgical [PTH] Routine Labs on day of discharge: Labs from last 24 hours 09/19/24 09/19/24 10:34 07:00 WBC 16.0 H RBC 3.12 L Hgb 8.4 L Hct 26.9 L MCV 86.2 MCH 26.9 MCHC 31.2 L RDW 15.2 H Plt Count 630 H MPV 9.3 Immature Gran % (Auto) 0.6 H Neut % (Auto) 79.7 H Lymph % (Auto) 10.8 L [place] % (Auto) 7.4 Eos % (Auto) 1.2 Baso % (Auto) 0.3 Lymph # (Auto) 1.72 [place] # (Auto) 1.2 H Eos # (Auto) 0.2 Baso # (Auto) 0.1 Abs Immat Gran (auto) 0.10 H Absolute Neuts (auto) 12.7 H Absolute Nucleated RBC 0.000 Nucleated RBC % 0.0 Sodium 136 L Potassium 4.7 Chloride 100 Carbon Dioxide 20 L Anion Gap 16 H BUN 8 Creatinine 0.60 L Estim Creat Clear Calc 90 Estimated GFR > 60 Glucose 92 Calcium 9.3 Urine Color Yellow Urine Appearance Clear Urine pH 6.0 Ur Specific [place] 1.024 Urine Protein Trace Urine Glucose (UA) Negative Urine Ketones Trace H Ur Blood (Man) Negative Urine Nitrate Negative Urine Bilirubin Negative Urine Urobilinogen 0.2 Add Ur Microanalysis Reviewed Leukocyte Esterase Rfl Negative Urine RBC 3-5 H Urine WBC 0-5 Ur Squamous Epith Cells Moderate Calcium Oxalate Crystal Present Urine Bacteria None seen Urine Casts 0-2 Discharge Plan Discharge Attending physician on discharge: Aguilar Lang Discharging Clinician: Aguilar Lang Anticipated Discharge Date/Time: 09/19/24 19:00 Patient Disposition: Home, Self-Care Activity: may shower, no straining and as tolerated Diet: regular Wound Care Instructions: other - see discharge instructions Discharge Instructions: * Remove dressings to incision and left lower quadrant to shower. * Ambulate 5-10 minutes at least 3 times a day. * May drive a car on Sunday * No lifting over 20 lb. No heavy exertion. * Place silver gel in the open wound on upper incision and place small amount of 4 x 4 gauze in the wound. Cover with 4 x [address] silver gel in the left lower quadrant wound. No packing here, just cover with 4 x 4 gauze. * Prescriptions for ciprofloxacin and metronidazole have been sent to your pharmacy. Prescriptions for Percocet and Ketoralac have been sent as well. Scripts for Compazine and Iron supplement have also been sent. Percocet, Ketoralac, and Compazine are on an as-needed basis. Antibiotics and Ferrous Sulfate are to be taken regularly as written on the bottle. * Call or go to the emergency room for temperature over 100.5, vomiting, severe abdominal pain, persistent bleeding, or other significant change in condition. * Appointment has been set up to see Dr. Lang at 10:15 a.m. on Sunday09/22/2024. Please arrive 15-30 minutes early. * We will discuss outpatient abscess drainage procedure at the Sunday office visit. * You will need to get another CBC on Sunday. It can be done before or after your office visit. Patient Instructions: Antibiotic Form, Pain Management (DC) Stand Alone Forms: General Discharge Information Follow-up/Referrals: Aguilar Lang MD [Physician] - 09/22/24 10:15 am (Appointment has already been scheduled) Discharge Medications: New oxycodone-acetaminophen [Percocet] 5-325 mg tablet 1 - 2 tablet PO Q6H PRN (Reason: pain) Qty: 20 0RF ferrous sulfate 325 mg (65 mg iron) Tablet,Delayed Release (Dr/Ec) 325 mg PO BID Qty: 60 2RF ciprofloxacin HCl 500 mg Tablet 500 mg PO Q12HR Qty: 14 0RF metronidazole 500 mg Tablet 500 mg PO Q8HR Qty: 21 0RF prochlorperazine [Compro] 25 mg suppository 25 mg RECTAL Q8H PRN (Reason: nausea and vomiting) Qty: 6 0RF Discontinued ondansetron 4 mg tablet,disintegrating 4 mg PO Q8H amoxicillin-pot clavulanate 875-125 mg tablet 1 tablet PO Q12H Qty: 10 0RF ketorolac 10 mg tablet 10 mg PO Q6H 4 Days Qty: 16 0RF oxycodone-acetaminophen 5-325 mg tablet 0.5 - 1 tablet PO Q6H PRN (Reason: pain) Qty: 20 0RF Other Ambulatory Orders: Complete Blood Count with Diff (Routine) Timeframe: 20240922 Location: Determined by Patient Ordered By: Aguilar Lang Date of admission: 09/08/24 00:14 Primary Care Provider: UNKNOWN,DOCTOR Admitting Provider: Elham Vences Attending physician on admission: Elham Vences Condition: Improved This report may have been done utilizing a voice recognition system. Attempts have been made to correct errors. However, there may be uncorrected grammatical,spelling, and recognition errors present. Report Initialized date/time: Aguilar Lang MD 09/19/24 / 1345 Electronically signed by: Aguilar Lang MD 09/19/24 1444 History & Physical Note Author [facility] September 08, 2024 11:20am Note Date/Time September 08, 2024 1 1:12am [facility] [address] [place] [id number] History & Physical Report Signed with Addenda Patient: Libby Maldonado MR#: [id number] : 1990 Acct:[id number] Age: 33 ADM Date: 09/08/24 Loc: [id number]: Elham Vences M.D. cc: Elham Vences MD; Sanjiv Burns MD; UNKNOWN,DOCTOR~ ADDENDUM I, Elham Vences MD, have provided a substantive portion of the care of this patient. I performed the history, exam and/or medical decision making for this encounter. abd - S, sl dist, +TTP LLQ at previous drain site with fluctuance, feculent drainage, CT and labs reviewed, long d/w pt re: likely Hartmans' procedure vs upsizing drain, she would like to try upsizing drain and abx at this point, willd/w radiology for drain Elham Vences MD 09/08/24;11:18 Addendum Documented By: Elham Vences MD 09/08/24 1120 Addendum Signed By: <Electronically signed by Elham Vences MD> 4 1120 H&P: HPI History of Present Illness Date/Time: 09/08/24 10:57 Chief Complaint: Left lower quadrant abdominal pain Narrative: This is a 33-year-old female known to our service from multiple previous hospitalizations for suspected sigmoid diverticulitis with perforation and abscess. This is her fifth admission for some type of severe inflammatory process associated with the sigmoid colon. Her last hospitalization she had an intra-abdominal abscess and was treated with IV antibiotics and percutaneous drainage. She was discharged on 09/05/2024 with the perc drain and Augmentin for 5 more days. She reports her abdominal pain was severe after discharge and was requiring her to take 3-4 oxycodone to try to control the pain. With oxycodone, she was able to ambulate, but otherwise felt like lying around at alltimes. Yesterday, she was walking around and noticed increased left lower quadrant abdominal pain and increased drainage at her dressing. She noticed that there was west drainage soaking through the gauze dressing around the perc drain. She was concerned and presented back to the ED for evaluation. [place] [address], which is the same as her white blood cell count on discharge. CT scan of the abdomen and pelvis showed the left lower quadrant abscess appearing more extensive than the prior CT with a percutaneous drainage catheter in place and now extension into the anterior abdominal wall and subcutaneous soft tissues in the left lower quadrant. There is additional stranding subcutaneous emphysema in the left lower quadrant, and an additional 7.2 x 2.3 x 1.5 cm pelvic abscess in the pelvic cul-de-sac, and persistent underlying wall thickening of the sigmoid colon. She was admitted and started on IV antibiotics. The CT scan was reviewed with the radiologist byDr. Vences. She is now seen on the medical floor. She is extremely anxious due to her concern of having surgery or any further procedures. She is still complaining of severe left lower quadrant abdominal pain, but feels it is more controlled with the IV Dilaudid. No nausea or vomiting. No fevers or chills. No other complaints at this time. Review of Systems Review of Systems: All systems reviewed & are unremarkable except as noted in HPI and below PMFSH Past Medical History Medical History Anxiety Asthma in childhood, resolved Surgical History Surgical History H/O gynecological procedure Mirena IUD insertion Family History Family History Mother Diverticulitis Father Heart problem Social History Social History Years smoked: 15 Smoking status: Current every day smoker Tobacco type: e-cigarettes/vaping Second hand tobacco smoke exposure: Yes Alcohol intake: never Substance use type: marijuana and other [...] Home Medications Medication Instructions Recorded Confirmed Type amoxicillin 875 mg-potassium 1 tablet PO Q12H #10 tabs 09/03/24 09/08/24 Rx clavulanate 125 mg tablet ketorolac 10 mg tablet 10 mg PO Q6H 4 days #16 tabs 09/03/24 09/08/24 Rx oxycodone-acetaminophen 5 mg-325 0.5 - 1 tablet PO Q6H PRN pain #20 09/03/24 09/08/24 Rx mg tablet tabs ondansetron 4 mg disintegrating 4 mg PO Q8H 09/08/24 09/08/24 History tablet Allergies Allergy/AdvReac Type Severity Reaction Status Date / Time No Known Allergies Allergy Verified 09/08/24 01:04 Vital Signs Vital Signs - 24 hr 09/07/24 18:05 09/07/24 21:02 09/07/24 21:02 Temperature 98.3 F Pulse Rate 86 79 Respiratory Rate 18 18 18 Blood Pressure 100/61 111/69 Pulse Oximetry 100 100 100 Oxygen Delivery Room Air 09/07/24 23:36 09/08/24 01:53 09/08/24 06:00 Temperature 99.1 F 99.4 F Pulse Rate 89 82 85 Respiratory Rate 18 18 16 Blood Pressure 121/78 105/60 110/55 L Pulse Oximetry 99 100 96 Oxygen Delivery 09/08/24 08:49 Temperature Pulse Rate Respiratory Rate Blood Pressure Pulse Oximetry 97 Oxygen Delivery Room Air Exam Const: General: in distress mild (Anxious) and uncomfortable (Due to abdominalpain) Nutritional Appearance: average body habitus Orientation/consciousness: patient oriented x3 HENMT: Head: normocephalic and atraumatic Ears: hearing grossly normal bilaterally Mouth: Yes moist mucous membranes Eyes: General: appearance normal, both eyes and all related structures Pupils: Equal, round and reactive pupils present Neck: Neck: normal visual inspection and full ROM Resp: Effort & Inspection: no respiratory distress Auscultation: clear to auscultation bilaterally Cardio: Rate: regular rate Rhythm: regular rhythm Heart sounds: S1 normal heart sound present and S2 normal heart sound present Peripheral pulses: Peripheral pulses 2+ throughout GI: Inspection: non-distended GI Palp: Yes Soft to palpation, Yes Tenderness to palpation present (GI) (Exquisitely tender in the left lower quadrant), Yes Guarding due to palpation present (GI) (Left lower quadrant) and No Rebound tenderness present Auscultation: normal bowel sounds Other: Left lower quadrant percutaneous drain with rust-colored brown drainage in the drain. Surrounding skin in the LLQ around the drain is erythematous with swelling and fluctuance, there is yellow/west purulent drainage draining at the perc drain site and she is extremely tender in this area to touch. Skin: General skin exam: normal color Neuro: General: moves all extremities and no focal motor deficits Speech: normal speech Motor exam (neuro): 5/5 motor strength present throughout Extrem: General: normal to inspection and no edema Psych: Mental Status: mental status grossly normal Attitude: cooperative Insight: Good insight present (Psych) Judgement: Good judgement present (Psych) H&P: Results Labs Labs: Short CBC 09/07/24 Range/Units 22:04 WBC 10.4 H (4.5-10.0) K/mm3 Hgb 10.7 L (12.0-15.0) g/dL Hct 33.2 L (37.0-47.0) % Plt Count 464 H (150-375) k/mm3 BMP 09/07/24 22:04 Sodium 134 L Potassium 3.8 Chloride 98 Carbon Dioxide 24 BUN 10 D Creatinine 0.50 L Glucose 92 Calcium 9.1 Liver Function 09/07/24 Range/Units 22:04 Total Bilirubin 0.5 (0.2-1.3) mg/dL AST 19 (14-36) U/L ALT 10 (6-35) U/L Alkaline Phosphatase 74 (38-126) U/L Albumin 4.0 (3.5-5.1) g/dL Imaging CT scan - abdomen: Radiologist's impression: ITS Impressions Abdomen/Pelvis CT 09/08/24 05:41 Impression: Status post interval placement of percutaneous drainage catheter in the left lower quadrant pericolonic abscess. The abscess is more extensive as compared toprior exam, now with extension into the anterior abdominal wall and subcutaneoussoft tissues in the left lower quadrant. There is additional stranding subcutaneous emphysema in the left lower quadrant, which could be postproceduralin nature versus additional soft tissue infection. Additional 7.2 x 2.3 x 1.5 cm pelvic abscess in the pelvic cul-de-sac, as detailed above. Persistent underlying wall thickening of the sigmoid colon. Assessment and Plan Assessment and plan (1) Abdominal wall abscess: Code(s): L02.211 - Cutaneous abscess of abdominal wall Status: Acute Assessment and Plan: * Patient presented back two days after discharge with extension of the LLQ abscess anteriorly into the subcutaneous tissues around the perc drain, as well as a new pelvic abscess. I discussed the case with Dr. Vences, who reviewed the CT with the Radiologist. He recommends proceeding with upsizing the LLQ perc drain in Radiology. Continue IV antibiotics and will keep her NPO for now for the procedure. Continue IV fluids for now. (2) Diverticulitis of large intestine with abscess: Code(s): K57.20 - Diverticulitis of large intestine with perforation and abscess without bleeding Status: Acute Assessment and Plan: * Patient with a persistent complicated inflammatory process of the sigmoid colon for the past 4-5 months. Suspect this could be diverticulitis verses malignancy. See plan above. Continue IV antibiotics. (3) Anemia: Qualifiers: Other causes of anemia: chronic disease, other Code(s): D64.9 - Anemia, unspecified Status: Chronic Assessment and Plan: * Stable. Hemoglobin 10 on admission. Plan I have discussed the patient's case and plan of care with Dr. Vences. This report may have been done utilizing a voice recognition system. Attempts have been made to correct errors. However, there may be uncorrected grammatical,spelling, and recognition errors present. Report Initialized date/time: Barbie Smith APN 09/08/241111 Electronically signed by: Barbie Smith APN 09/08/241111 History & Physical Note Author [facility] September 12, 2024 8:28am Note Date/Time September 12, 2024 8 :28am [facility] [address] [place] [address] History & Physical Update Signed Patient: Libby Maldonado MR#: [id number] : 1990 Acct:[id number] Age: 33 ADM Date: 09/08/24 Loc: [id number] 317-[address]: Elham Vences M.D. cc: ~ History and Physical Update Update Date/Time: 09/12/24 08:28 History and Physical has been reviewed, including an updated exam of the patient. There are NO changes in the patient's condition. Risks, benefits, and alternatives have been discussed and questions answered. Patient agrees to proceed with procedure. This report may have been done utilizing a voice recognition system. Attempts have been made to correct errors. However, there may be uncorrected grammatical,spelling, and recognition errors present. Report Initialized date/time: Aguilar Lang MD 09/12/24827 Electronically signed by: Aguilar Lang MD 09/12/24827 Progress Note Author Sanjiv Burns [facility] September 08, 2024 12:25am Note Date/Time September 07, 2024 9 :49pm [place] [id number] [facility] [address] [place] [address] Emergency Room Visit Note Signed Patient: Libby Maldonado MR#: [id number] : 1990 Acct:[id number] Age: 33 ADM Date: 09/07/24 Loc: [facility] Attending Dr: cc: Sanjiv Burns MD; UNKNOWN,DOCTOR~ HPI - General Adult General Chief complaint: Unspecified Stated complaint: wound vac leaking and pain Time Seen by Provider: 09/07/24 21:05 History of Present Illness HPI narrative: 33-year-old female with a recent hospital visit with complicated diverticulitis with perforation abscess formation. She was admitted to the Surgical Services, started on IV antibiotics and had a drainage placed by IR. Patient postoperatively had some increased white count but improving abdominal examination and was discharged home with oral antibiotics and pain control. Patient returns to the ER today as she had a sudden onset worsening pain in her left lower quadrant, purulent drainage and fecal material starting to drain fromher abdominal wound. She states that she heard a loud popping sensation and felt significant pain onset. Drainage started shortly thereafter. She has beentaking her Percocet at home without any relief of her symptoms. Presents today with subjective fever chills left-sided abdominal pain and fecal material draining from her left-sided wound. No bleeding or dark material drainage. Related Data Home Medications Medication Instructions Recorded Confirmed acetaminophen 500 mg tablet 1,000 mg PO Q6H 09/01/24 09/02/24 Allergies Allergy/AdvReac Type Severity Reaction Status Date / Time No Known Allergies Allergy Verified 09/07/24 18:02 Review of Systems Review of Systems: As reviewed above in [facility] Past Medical History Medical History Anxiety [...] the patient): Female Spiritual care concerns: No Exam Narrative: GENERAL: Uncomfortable appearing but not toxic. Not in any acute distress but painful in appearance. HEAD: [Normocephalic, atraumatic.] EYES: [PERRLA and EOMI.] ENT: Nares clear, no rhinorrhea or epistaxis. Mucous membranes moist. NECK: Supple. CHEST: [Clear to auscultation. No respiratory distress.] HEART: [Regular rate and rhythm]. No murmur heard. [Normal peripheral pulses.] ABDOMEN: [Soft, nondistended], left-sided abdominal wall has purulent, fecal material draining from the left lower quadrant wound where her percutaneous drainage is still attached. The drainage bag itself has similar material but minimal collection. No bleeding evident. Stoma surrounding and has some mild erythema and tenderness but no fluctuance. She is tender to palpation without rigidity or guarding in this area. EXTREMITIES: Normal range of motion. [No edema.] SKIN: Warm, dry, no rash. NEURO: [No focal deficits]. Alert and oriented [x3.] PSYCH: [Normal mood and affect.] Course Vital Signs Vital signs: Vital Signs Temperature 36.8 C 09/07/24 18:05 Pulse Rate 86 09/07/24 18:05 Respiratory Rate 18 09/07/24 18:05 Blood Pressure 100/61 09/07/24 18:05 Pulse Oximetry 100 09/07/24 18:05 Oxygen Delivery Room Air 09/07/24 18:05 Temperature 36.8 C 09/07/24 18:05 Pulse Rate 89 09/07/24 23:36 Respiratory Rate 18 09/07/24 23:36 Blood Pressure 121/78 09/07/24 23:36 Pulse Oximetry 99 09/07/24 23:36 Oxygen Delivery Room Air 09/07/24 18:05 Medical Decision Making MDM Narrative Medical decision making narrative: 33-year-old female presenting to the emergency department with complications from her recent diverticula procedure. She had a complicated diverticulitis with abscess formation and requiring percutaneous drainage of the abscess. She was discharged on antibiotics and pain medications. She presents today with sudden onset worsening pain or left lower quadrant followed by drainage of fecal/purulent material from her abdominal wound in the left side. On examination her IR collection drainage bag is still in place with minimal drainage into the bag with stoma leaking dark brown/green material. Overlying erythema but no skin breakdown. No bleeding. Tender to palpation this area. Hemodynamically she is stable and afebrile. She is in pain and anxious in appearance. IV was established, CBC CMP lipase, lactic acid as CT scan with contrast was obtained. She was given Dilaudid Zofran fluids and Ativan for symptom control. After initial evaluation I called and spoke to the general surgeon to make them aware of patient's presentation here in the emergency department with ongoing workup pending. They did recommend a CT scan and will evaluate and provide recommendations upon imaging reviewed. Patient CT scan was independently reviewed by myself and I do see what appears to be the perforated diverticulitis with what appears to be an abdominal wall abscess forming, there appears to be air tracking in the rectus muscles both medially and laterally from the entry site of the drain. On clinical examination she is draining liquid stool with green tinged material around the drain and very minimal drainage into the collection bag itself. Patient has required multiple rounds of pain medications. Given the concern for abdominal abscess she was started on antibiotics including Zosyn and Flagyl. Blood cultures were obtained. I spoken relayed this information to the general surgeon on-call Dr. Vences. Patient was just discharged from General surgery Service. She will be readmitted to their service at this time and made NPO for potential interventions. Patient was agreeable to the plan of care. Medical Records Medical records reviewed: Yes I reviewed the external patient's medical records. Vital Signs Vital Signs: Vital Signs Temperature 36.8 C 09/07/24 18:05 Pulse Rate 86 09/07/24 18:05 Respiratory Rate 18 09/07/24 18:05 Blood Pressure 100/61 09/07/24 18:05 Pulse Oximetry 100 09/07/24 18:05 Oxygen Delivery Room Air 09/07/24 18:05 Temperature 36.8 C 09/07/24 18:05 Pulse Rate 89 09/07/24 23:36 Respiratory Rate 18 09/07/24 23:36 Blood Pressure 121/78 09/07/24 23:36 Pulse Oximetry 99 09/07/24 23:36 Oxygen Delivery Room Air 09/07/24 18:05 Lab Data Lab results reviewed: Yes I reviewed the patient's lab results. 09/07/24 22:04 09/07/24 22:04 Labs: Lab Results 09/07/24 Range/Units 22:04 WBC 10.4 H (4.5-10.0) K/mm3 RBC 3.88 L (4.2-5.4) M/mm3 Hgb 10.7 L (12.0-15.0) g/dL Hct 33.2 L (37.0-47.0) % MCV 85.6 (80-100) fl MCH 27.6 (26-34) pg MCHC 32.2 (32-36) g/dl RDW 14.3 (11.5-14.5) % Plt Count 464 H (150-375) k/mm3 MPV 9.5 (7.4-10.4) fl Immature Gran % (Auto) 0.3 (0-0.5) % Neut % (Auto) 81.2 H (45.5-73.1) % Lymph % (Auto) 9.7 L (18.3-44.2) % [place] % (Auto) 8.4 (2.6-8.5) % Eos % (Auto) 0.2 (0-4.4) % Baso % (Auto) 0.2 (0.2-1.2) % Lymph # (Auto) 1.01 (0.9-3.2) K/mm3 [place] # (Auto) 0.9 H (0.1-0.6) K/mm3 Eos # (Auto) 0.0 (0-0.3) K/mm3 Baso # (Auto) 0.0 (0.0-0.1) K/mm3 Abs Immat Gran (auto) 0.03 (0.00-0.031) K/mm3 Absolute Neuts (auto) 8.4 H (1.3-6.7) K/mm3 Absolute Nucleated RBC 0.000 (0.0-0.012) K/mm3 Nucleated RBC % 0.0 (0.0-0.2) % PT 14.4 (11.1-14.7) Seconds INR 1.1 APTT 33.3 (22.3-36.8) Seconds Sodium 134 L (137-145) mmol/L Potassium 3.8 (3.4-5.0) mmol/L Chloride 98 (98-107) mmol/L Carbon Dioxide 24 (22-30) mmol/L Anion Gap 12 (4-12) mmol/L BUN 10 D (7-17) mg/dL Creatinine 0.50 L (0.7-1.0) mg/dL Estim Creat Clear Calc 106 ml/min Estimated GFR > 60 (59 - ) Glucose 92 (65-110) mg/dL Lactic Acid 1.3 (0.7-2.0) mmol/L Calcium 9.1 (8.4-10.2) mg/dL Total Bilirubin 0.5 (0.2-1.3) mg/dL AST 19 (14-36) U/L ALT 10 (6-35) U/L Alkaline Phosphatase 74 (38-126) U/L Total Protein 8.0 (6.3-8.2) g/dL Albumin 4.0 (3.5-5.1) g/dL Lipase 15 L (23-300) U/L Imaging Data Attestation: I personally reviewed and interpreted this imaging study as follows: My impression: Previous perforated diverticulitis, drain in place with what appears to be abdominal wall abscess with drainage and gas versus air spreading from the tractof the previously placed drain. Pending full radiology read. Critical Care Time Critical Care Time Critical Care Time: Yes Total Critical Care Time: 35 Discharge Plan Discharge Clinical Impression: Diverticulitis of large intestine with abscess, Abdominal wall abscess Patient Disposition: Still a Patient Condition: Stable Prescriptions: No Action acetaminophen 500 mg tablet 1,000 mg PO Q6H Patient Comments: Patient states that she take 4 to 5 at a time. Education provided. amoxicillin-pot clavulanate 875-125 mg tablet 1 tablet PO Q12H Qty: 10 0RF mineral oil Oil 15 ml PO BID Qty: 473 0RF ketorolac 10 mg tablet 10 mg PO Q6H 4 Days Qty: 16 0RF oxycodone-acetaminophen 5-325 mg tablet 0.5 - 1 tablet PO Q6H PRN (Reason: pain) Qty: 20 0RF psyllium Powder 1 tbsp PO BID Qty: 300 2RF Rx Instructions: mix into at least 8 oz of water or juice before administering Follow-up/Referrals: UNKNOWN,DOCTOR [Primary Care Provider] - Time of Disposition: 00:25 This report may have been done utilizing a voice recognition system. Attempts have been made to correct errors. However, there may be uncorrected grammatical,spelling, and recognition errors present. Report Initialized date/time: Sanjiv Burns MD 09/07/249 Electronically signed by: Sanjiv Burns MD 09/08/24 0025 Progress Note Author [facility] September 09, 2024 4:18pm Note Date/Time September 09, 2024 3 :51pm [place] [id number] [place] [address] General Surgery Progress Note Signed with [place] Patient: Libby Maldonado MR#: [id number] : 1990 Acct:[id number] Age: 33 ADM Date: 09/08/24 Loc: [id number] 317-[address]: Elham Vences M.D. cc: ~ ADDENDUM I, Elham Vences MD, have provided a substantive portion of the care of this patient. I performed the history, exam and/or medical decision making for this encounter. abd - S, sl dist, +TTP LLQ, drain c purulent dc, labs reviewed, slightly improved, cont abx/drain, will likely repeat CT tomorrow Elham Vences MD 09/09/24;16:15 Addendum Documented By: Elham Vences MD 09/09/24 1618 Addendum Signed By: <Electronically signed by Elham Vences MD> 4 1618 Progress Note: A&P Assessment and Plan (1) Abdominal wall abscess: Code(s): L02.211 - Cutaneous abscess of abdominal wall Status: Acute Assessment and Plan: * Perc drain upsized yesterday. Still having a lot of abdominal pain. WBC normal and vital signs are stable. Will add scheduled IV Ibuprofen. * Will keep her on clear liquids and monitor the perc drain. * Continue IV antibiotics * Repeat labs tomorrow and we will order a repeat CT scan of the abdomen and pelvis tomorrow to re-evaluate. (2) Diverticulitis of large intestine with abscess: Code(s): K57.20 - Diverticulitis of large intestine with perforation and abscess without bleeding Status: Acute Assessment and Plan: * Patient with a persistent complicated inflammatory process of the sigmoid colon for the past 4-5 months. Suspect this could be diverticulitis verses malignancy. See plan above. Continue IV antibiotics. 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 On clear liquids. May need to back off diet if not improving and consider PICC line/TPN. Plan I have discussed the patient's case and plan of care with Dr. Vences. Subjective Subjective Date/Time Seen: 09/09/24 15:43 Patient reports: still having pain, voiding w/o difficulty, flatus, no bowel movement and afebrile Interval history: Patient still complaining of pain without any improvement since yesterday. She is very anxious. She also asked for some medication to help her sleep as she wasnot able to sleep. Trazodone is ordered but she was not given this last night. She is tolerating liquids without any nausea or vomiting. She felt like her abdominal pain was initially getting better yesterday until around 5:00 am this morning her pain was back at the severity it was when she came in. She reports asudden onset of LLQ pain and then she noticed drainage running down around the perc drain. Since then, her pain has been severe. WBC normal today. VS are stable and she is afebrile. Dilaudid is helping but she feels it is not as much as yesterday. Exam Const: General: in distress mild (Anxious) and uncomfortable (Due to abdominalpain) GI: Inspection: non-distended GI Palp: Yes Tenderness to palpation present (GI) (diffuse tenderness, but she is extremely tender in the LLQ ) and Yes Guarding due to palpation present (GI) (more diffuse guarding and rigidity today) Auscultation: Hypoactive bowel sounds present Other: LLQ perc drain with brown feculent-appearing output, dressing removed and the surrounding erythema and swelling has improved since yesterday. There is west/brown drainage coming around the drain and I'm able to express some drainage, but she is very tender in this area. Objective Data Vital Signs Vital Signs: Vital Signs - 24 hr 09/08/24 22:00 09/08/24 20:00 09/09/24 06:00 Temperature 97.5 F L 98.3 F Pulse Rate 81 72 Respiratory Rate 18 18 Blood Pressure 98/56 L 116/67 Pulse Oximetry 100 96 Oxygen Delivery Room Air 09/09/24 14:00 Temperature 98.6 F Pulse Rate 87 Respiratory Rate 20 Blood Pressure 129/75 Pulse Oximetry 98 Oxygen Delivery Intake/Output Intake/Output: Intake & Output 09/06/24 09/07/24 09/08/24 09/09/24 23:59 23:59 23:59 23:59 Intake Total 1000 2420 1490 Output Total 0 30 Balance 1000 2420 1460 Meds/Results Medications: Active Medications Generic Name Dose Route Start Last Admin Trade Name Freq PRN Reason Stop Dose Admin Hydromorphone HCl 1 mg 09/08/24 07:55 09/09/24 13:05 Hydromorphone Hcl Inj (*Crx) 1 Mg/Ml Syr IV PUSH 1 mg Q2H PRN Administration Pain Rated 7-10 Lactated Ringer's 1,000 mls @ 125 mls/hr 09/08/24 00:15 09/09/24 10:18 Lr - Lactated Ringers Iv IV CONT 125 mls/hr .Q8H FIDELIA Administration Metronidazole 500 mg in 100 mls @ 100 mls/hr 09/08/24 16:00 09/09/24 09:10 Flagyl 500 Mg/Iso Soln 100 Ml IVPB Infused Q8H FIDELIA Infusion Piperacillin/Tazobactam/Dextrose 3.375 gm in 50 mls @ 100 mls/hr 09/08/24 15:00 09/09/24 10:18 Zosyn 3.375 Gm/Ns 50 Ml IVPB 100 mls/hr Q6H FIDELIA Administration Lorazepam 0.5 mg 09/08/24 19:44 Lorazepam Inj (*Crx) 2 Mg/Ml Vial IV PUSH Q6H PRN Anxiety Ondansetron HCl 4 mg 09/08/24 00:14 09/09/24 10:50 Ondansetron Inj 4 Mg/2 Ml Vial IV PUSH 4 mg Q4H PRN Administration Nausea Prochlorperazine Edisylate 10 mg 09/08/24 16:07 Prochlorperazine Edisylate 10 Mg/2 Ml Vial IV PUSH 09/10/24 16:06 Q6H PRN Nausea And Vomiting Trazodone HCl 25 mg 09/08/24 16:16 Trazodone Hcl 25 Mg Tablet PO HS PRN Insomnia Radiology Results: ITS Impressions Abdomen/Pelvis CT 09/08/24 05:41 Impression: Status post interval placement of percutaneous drainage catheter in the left lower quadrant pericolonic abscess. The abscess is more extensive as compared toprior exam, now with extension into the anterior abdominal wall and subcutaneoussoft tissues in the left lower quadrant. There is additional stranding subcutaneous emphysema in the left lower quadrant, which could be postproceduralin nature versus additional soft tissue infection. Additional 7.2 x 2.3 x 1.5 cm pelvic abscess in the pelvic cul-de-sac, as detailed above. Persistent underlying wall thickening of the sigmoid colon. Catheter Placement CT 09/08/24 14:[address]: [address]-guided upsizing to 12 Malagasy of a prior 8.5 Malagasy left lower quadrant percutaneous abscess drain.. 2. The catheter will be managed by Dr. Vences. 3. Patent fistulous draining tract with small amount of the water-soluble contrast injected into the percutaneous abscess drain extending into the proximal sigmoid colon and refluxing proximally into the distal descending colon. Labs Labs: Laboratory Results - last 24 hr 09/09/24 06:23 WBC 7.9 RBC 3.18 L Hgb 8.8 L Hct 27.5 L MCV 86.5 MCH 27.7 MCHC 32.0 RDW 14.1 Plt Count 409 H MPV 9.3 Immature Gran % (Auto) 0.8 H Neut % (Auto) 75.9 H Lymph % (Auto) 15.5 L [place] % (Auto) 6.9 Eos % (Auto) 0.6 Baso % (Auto) 0.3 Lymph # (Auto) 1.22 [place] # (Auto) 0.5 Eos # (Auto) 0.1 Baso # (Auto) 0.0 Abs Immat Gran (auto) 0.06 H Absolute Neuts (auto) 6.0 Absolute Nucleated RBC 0.000 Nucleated RBC % 0.0 Sodium 135 L Potassium 3.8 Chloride 101 Carbon Dioxide 21 L Anion Gap 13 H BUN 3 L D Creatinine 0.60 L Estim Creat Clear Calc 90 Estimated GFR > 60 Glucose 90 Calcium 8.7 This report may have been done utilizing a voice recognition system. Attempts have been made to correct errors. However, there may be uncorrected grammatical,spelling, and recognition errors present. Report Initialized date/time: Barbie Smith APN 09/09/24 / 1551 Electronically signed by: Barbie Smith APN 09/09/24 1602 Progress Note Author [facility] September 10, 2024 11:28am Note Date/Time September 10, 2024 1 1:28am [facility] [address] [facility] [address] [place] [address] General Surgery Progress Note Signed Patient: Libby Maldonado MR#: [id number] : 1990 Acct:[id number] Age: 33 ADM Date: 09/08/24 Loc: [id number] 317-[address]: Elham Vences M.D. 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 - Fistula of intestine Status: Acute Assessment and Plan: see above Subjective Subjective Date/Time Seen: 09/10/24 11:15 Interval history: feels better today, +bowel fxn, decreased pain in LLQ Review of Systems Review of Systems: All systems reviewed & are unremarkable except as noted in HPI and below Exam Const: General: cooperative, comfortable and no acute distress Resp: Auscultation: clear to auscultation bilaterally Cardio: Rate: regular rate Rhythm: regular rhythm GI: Inspection: normal to inspection and non-distended GI Palp: Yes abdominal tenderness, Yes Soft to palpation, Yes Tenderness to palpation present(GI), No Guarding due to palpation present (GI) and No Rigid due to palpation Other: LLQ drain c decreased drainage Objective Data Vital Signs Vital Signs: Vital Signs - 24 hr 09/09/24 14:00 09/09/24 20:36 09/09/24 20:00 Temperature 37.0 C 36.4 C L Pulse Rate 87 78 Respiratory Rate 20 16 Blood Pressure 129/75 110/76 Pulse Oximetry 98 100 Oxygen Delivery Room Air 09/10/24 06:00 09/10/24 08:00 Temperature 36.7 C Pulse Rate 82 Respiratory Rate 16 Blood Pressure 103/67 Pulse Oximetry 99 Oxygen Delivery Room Air Intake/Output Intake/Output: Intake & Output 09/07/24 09/08/24 09/09/24 09/10/24 23:59 23:59 23:59 23:59 Intake Total 1000 2420 3420.0 800 Output Total 0 30 600 Balance 1000 2420 3390.0 200 Meds/Results Medications: Active Medications Generic Name Dose Route Start Last Admin Trade Name Freq PRN Reason Stop Dose Admin Enoxaparin Sodium 40 mg 09/10/24 09:00 09/10/24 08:00 Enoxaparin 40 Mg/0.4 Ml Syringe SUB-Q Not Given DAILY [facility] Famotidine 20 mg 09/09/24 21:00 09/10/24 07:59 Famotidine 20 Mg/2 Ml Vial IV PUSH 20 mg Q12HR FIDELIA Administration Hydromorphone HCl 1 mg 09/08/24 07:55 09/10/24 09:01 Hydromorphone Hcl Inj (*Crx) 1 Mg/Ml Syr IV PUSH 1 mg Q2H PRN Administration Pain Rated 7-10 Lactated Ringer's 1,000 mls @ 60 mls/hr 09/08/24 00:15 09/09/24 21:34 Lr - Lactated Ringers Iv IV CONT 60 mls/hr .[id number] FIDELIA Administration Metronidazole 500 mg in 100 mls @ 100 mls/hr 09/08/24 16:00 09/10/24 08:58 Flagyl 500 Mg/Iso Soln 100 Ml IVPB Infused Q8H FIDELIA Infusion Piperacillin/Tazobactam/Dextrose 3.375 gm in 50 mls @ 100 mls/hr 09/08/24 15:00 09/10/24 09:31 Zosyn 3.375 Gm/Ns 50 Ml IVPB Infused Q6H FIDELIA Infusion Ibuprofen 800 mg in 200 mls @ 400 mls/hr 09/09/24 15:45 09/10/24 06:00 Caldolor 800 Mg/200 Ml IVPB Infused Q6HR FIDELIA Infusion Lorazepam 0.5 mg 09/08/24 19:44 Lorazepam Inj (*Crx) 2 Mg/Ml Vial IV PUSH Q6H PRN Anxiety Ondansetron HCl 4 mg 09/08/24 00:14 09/10/24 09:17 Ondansetron Inj 4 Mg/2 Ml Vial IV PUSH 4 mg Q4H PRN Administration Nausea Prochlorperazine Edisylate 10 mg 09/08/24 16:07 Prochlorperazine Edisylate 10 Mg/2 Ml Vial IV PUSH 09/10/24 16:06 Q6H PRN Nausea And Vomiting Trazodone HCl 25 mg 09/08/24 16:16 09/09/24 21:32 Trazodone Hcl 25 Mg Tablet PO 25 mg HS PRN Administration Insomnia Radiology Results: ITS Impressions Catheter Placement CT 09/08/24 14:[address]: 1[address]-guided upsizing to 12 Malagasy of a prior 8.5 Malagasy left lower quadrant percutaneous abscess drain.. 2. The catheter will be managed by Dr. Vences. 3. Patent fistulous draining tract with small amount of the water-soluble contrast injected into the percutaneous abscess drain extending into the proximal sigmoid colon and refluxing proximally into the distal descending colon. Abdomen/Pelvis CT 09/10/24 08:53 IMPRESSION: 1. Interval upsizing of a left lower quadrant percutaneous abscess drain within a residual 2.2 x 1.9 cm abscess cavity located within a larger region of phlegmonous change with smaller of a communicating extension of the abscess. No other drainable abscess is identified. 2. Small amount of likely reactive nonorganized appearing free fluid in the deeppelvis. 3. Focal wall thickening and narrowing of the lumen of the proximal sigmoid colon potentially representing a stricture related to diverticulitis which is located at the site of a previous identified draining sinus tract evident at thetime of the drainage catheter exchange. Labs Labs: Laboratory Results - last 24 hr 09/10/24 05:45 WBC 7.6 RBC 3.20 L Hgb 8.6 L Hct 27.9 L MCV 87.2 MCH 26.9 MCHC 30.8 L RDW 14.3 Plt Count 384 H MPV 9.4 Sodium 137 Potassium 3.5 Chloride 102 Carbon Dioxide 24 Anion Gap 11 BUN < 2 L Creatinine 0.60 L Estim Creat Clear Calc 90 Estimated GFR > 60 Glucose 84 Calcium 8.5 This report may have been done utilizing a voice recognition system. Attempts have been made to correct errors. However, there may be uncorrected grammatical,spelling, and recognition errors present. Report Initialized date/time: Elham Vences MD 09/10/241127 Electronically signed by: Elham Vences MD 09/10/241127 Progress Note Author [facility] September 11, 2024 10:56am Note Date/Time September 11, 2024 1 0:27am [facility] [address] [place] [address] General Surgery Progress Note Signed Patient: Libby Maldonado MR#: [id number] : 1990 Acct:[id number] Age: 33 ADM Date: 09/08/24 Loc: [id number]: Elham Vences M.D. cc: ~ Progress Note: A&P Assessment and Plan (1) Diverticulitis of large intestine with abscess: Code(s): K57.20 - Diverticulitis of large intestine with perforation and abscess without bleeding Status: Acute Assessment and Plan: Patient with multiple hospitalizations for her perforated diverticulitis and nowwith fecal peritonitis and a colocutaneous fistula. She is s/p percutaneous drainage with upsizing of the drain and now improved drainage. I discussed the case with Dr. Lang. Given her worsening diverticulitis with multiple attempts atconservative management, it is likely that she will require a surgery. He is going to see the patient later today and discuss surgical options. Continue IV antibiotics for now. Will plan accordingly. 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 Lang. Subjective Subjective Date/Time Seen: 09/11/24 10:21 Patient reports: voiding w/o difficulty, bowel movement and afebrile Interval history: Abdominal pain has improved some over the past two days. She is still requiring IV Dilaudid every 2 hours during the day and throughout the night. Her abdominalpain is mostly in the LLQ now with the more generalized pain improved. She stillhas intermittent sharp pains in the RLQ as well. She reports intermittent nausea, but thought it was related to the IV Dilaudid. She did have an episode of vomiting last night. Although, this morning she ate her full breakfast and tolerated this well. Her bowels are finally moving. She had about 6 BMs since yesterday. At first, they were more solid and now loose. She still has drainage going around the drain. She has been refusing the IV Ibuprofen since yesterday morning because it would burn when infusing through her IV. She is not sure why,because she tolerated this in the past without any issues. She is still having west drainage coming around the LLQ perc drain as well. Her dressing was changed 3 times in the past 24 hours. No output documented from the perc drain overnightand only 7 cc recorded from dayshift yesterday. The patient states that they emptied the drain early this morning and nursing did not get told in report how much was emptied. There is about 50 cc of feculent-appearing output in the drainthis morning. Exam Const: General: comfortable and no acute distress GI: Inspection: non-distended GI Palp: Yes Soft to palpation, Yes Tenderness to palpation present (GI) (across the lower abdomen with increased tenderness towards the LLQ) and No Guarding due to palpation present (GI) Auscultation: normal bowel sounds Other: LLQ perc drain with feculent-appearing brown drainage, dressing completely saturated and was changed. There is oozing of west drainage around the drain during the dressing change. The erythema and swelling around the drain has improved, but she is still extremely tender in this area even to remove the tegaderm bandage. Objective Data Vital Signs Vital Signs: Vital Signs - 24 hr 09/10/24 14:00 09/10/24 21:48 09/10/24 20:15 Temperature 96.9 F L 98.1 F Pulse Rate 77 80 80 Respiratory Rate 20 16 16 Blood Pressure 110/70 111/62 Pulse Oximetry 100 100 100 Oxygen Delivery Room Air 09/11/24 06:00 Temperature 97.9 F Pulse Rate 90 Respiratory Rate 16 Blood Pressure 110/61 Pulse Oximetry 96 Oxygen Delivery Intake/Output Intake/Output: Intake & Output 09/08/24 09/09/24 09/10/24 09/11/24 23:59 23:59 23:59 23:59 Intake Total 2420 3420.0 2440 518 Output Total 0 30 607 Balance 2420 3390.0 1833 518 Meds/Results Medications: Active Medications Generic Name Dose Route Start Last Admin Trade Name Freq PRN Reason Stop Dose Admin Enoxaparin Sodium 40 mg 09/10/24 09:00 09/11/24 08:59 Enoxaparin 40 Mg/0.4 Ml Syringe SUB-Q 40 mg DAILY FIDELIA Administration Famotidine 20 mg 09/09/24 21:00 09/11/24 08:58 Famotidine 20 Mg/2 Ml Vial IV PUSH 20 mg Q12HR FIDELIA Administration Hydromorphone HCl 1 mg 09/08/24 07:55 09/11/24 08:59 Hydromorphone Hcl Inj (*Crx) 1 Mg/Ml Syr IV PUSH 1 mg Q2H PRN Administration Pain Rated 7-10 Lactated Ringer's 1,000 mls @ 60 mls/hr 09/08/24 00:15 09/11/24 07:28 Lr - Lactated Ringers Iv IV CONT Not Given .[id number] FIDELIA Metronidazole 500 mg in 100 mls @ 100 mls/hr 09/08/24 16:00 09/11/24 09:51 Flagyl 500 Mg/Iso Soln 100 Ml IVPB Infused Q8H FIDELIA Infusion Piperacillin/Tazobactam/Dextrose 3.375 gm in 50 mls @ 100 mls/hr 09/08/24 15:00 09/11/24 09:46 Zosyn 3.375 Gm/Ns 50 Ml IVPB Infused Q6H FIDELIA Infusion Ibuprofen 800 mg in 200 mls @ 400 mls/hr 09/09/24 15:45 09/11/24 05:05 Caldolor 800 Mg/200 Ml IVPB Not Given Q6HR FIDELIA Lorazepam 0.5 mg 09/08/24 19:44 09/11/24 04:20 Lorazepam Inj (*Crx) 2 Mg/Ml Vial IV PUSH 0.5 mg Q6H PRN Administration Anxiety Ondansetron HCl 4 mg 09/08/24 00:14 09/11/24 02:53 Ondansetron Inj 4 Mg/2 Ml Vial IV PUSH 4 mg Q4H PRN Administration Nausea Trazodone HCl 25 mg 09/08/24 16:16 09/10/24 20:17 Trazodone Hcl 25 Mg Tablet PO 25 mg HS PRN Administration Insomnia Radiology Results: ITS Impressions Catheter Placement CT 09/08/24 14:14 IMPRESSION: 1[address] CT-guided upsizing to 12 Malagasy of a prior 8.5 Malagasy left lower quadrant percutaneous abscess drain.. 2. The catheter will be managed by Dr. Vences. 3. Patent fistulous draining tract with small amount of the water-soluble contrast injected into the percutaneous abscess drain extending into the proximal sigmoid colon and refluxing proximally into the distal descending colon. Abdomen/Pelvis CT 09/10/24 08:53 IMPRESSION: 1. Interval upsizing of a left lower quadrant percutaneous abscess drain within a residual 2.2 x 1.9 cm abscess cavity located within a larger region of phlegmonous change with smaller of a communicating extension of the abscess. No other drainable abscess is identified. 2. Small amount of likely reactive nonorganized appearing free fluid in the deeppelvis. 3. Focal wall thickening and narrowing of the lumen of the proximal sigmoid colon potentially representing a stricture related to diverticulitis which is located at the site of a previous identified draining sinus tract evident at thetime of the drainage catheter exchange. This report may have been done utilizing a voice recognition system. Attempts have been made to correct errors. However, there may be uncorrected grammatical,spelling, and recognition errors present. Report Initialized date/time: Barbie Smith APN 09/11/24 / 1027 Electronically signed by: Barbie Smith APN 09/11/24 1056 Progress Note Author [facility] September 11, 2024 7:05pm Note Date/Time September 11, 2024 7 :05pm [facility] [address] [place] [address] General Surgery Progress Note Signed Patient: Libby Maldonado MR#: [id number] : 1990 Acct:[id number] Age: 33 ADM Date: 09/08/24 Loc: [id number]: Elham Vences M.D. cc: ~ Progress Note: A&P Assessment and Plan (1) Diverticulitis of large intestine with abscess: Qualifiers: Diverticulitis bleeding: without bleeding Qualified Code(s): K57.20 - Diverticulitis of large intestine with perforation and abscess without bleeding Code(s): K57.20 - Diverticulitis of large intestine with perforation and abscess without bleeding Status: Acute Assessment and Plan: Medical record reviewed including all labs and imaging done since 09/03/2024. Discussed patient with Dr. Vences, who has been managing her. He was covering for me and I will go ahead resume care. I explained to the patient that we havedone as much as possible to manage this and enable her to recover without surgery. Unfortunately, she has not gotten better. Her abscess got worse and now she has liquid stool draining not only into the pigtail catheter but around the catheter. She is improved from her admission 09 07 and 09/08/2024. This isnot going to go away without surgery and I have discussed this with her. She isupset and crying but understands that surgery needs to be done. I explained that we would go to the operating room tomorrow morning and removed the sigmoid colon which is the source of the perforation, abscess, and now colocutaneous fistula. She will require either and end colostomy or a loop ileostomy. The loop ileostomy would be performed should I be able to perform colorectal anastomosis at the procedure. I explained that she will definitely need a 2nd procedure to restore intestinal continuity. Explained that typically this is 2-3 months after the surgery that we would go ahead with the closure of the ileostomy or colostomy. Patient is upset and not happy about surgery being needed but understands that it is needed and is willing to proceed. Additionally, there is still a possibility that a colonic neoplasm may be the cause of her infection and fistula although diverticulitis does seem to be much more likely. All questions were answered. I did cut off and removed the pigtail catheter except about 1 in from the exit site on the skin. A colostomy appliance was placed over the exit site of the catheter and liquid stool was draining immediately after it was placed. 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 (4) Anemia: Qualifiers: Other causes of anemia: chronic disease, other Code(s): D64.9 - Anemia, unspecified Status: Chronic Assessment and Plan: Persistent but stable anemia. Subjective Subjective Date/Time Seen: 09/11/24 18:45 Patient reports: still having pain (Taking Dilaudid pretty much every 2 hours, drain is painful left lower quadrant is painful), voiding w/o difficulty, bowel movement (Having stool come out through the pigtail catheter but also around thepigtail catheter leaking on patient, bed, and clothing) and afebrile Interval history: Patient very upset when I came in the room. She continues to have abdominal pain and just prior to my arrival, she had liquid stool leak around her pigtail catheter and soiled the bed, her clothing, and her abdominal skin. She voices frustration and and anxiety as she has 2 children and has not been able to work. Review of Systems Review of Systems: All systems reviewed & are unremarkable except as noted in HPI and below (HPI) Constitutional: Constitutional: Denies chills, Denies fever(s), Reports lethargy, Denies night sweats and Reports poor appetite Gastrointestinal: Gastrointestinal: Reports as per HPI, Reports abdominal pain, Reports bloating, Reports GI cramping, Denies diarrhea and Denies vomiting Genitourinary: Genitourinary: Reports pelvic pain Psychiatric: Psychiatric: Reports anxiety Hematologic/Lymphatic: Hematologic/Lymphatic: Reports no additional hematologic/lymphatic complaints and Reports as per HPI Exam Const: General: cooperative, comfortable, alert, awake, anxious, tired appearing and thin Orientation/consciousness: patient oriented x3 and No confusion GI: Inspection: no abdominal wall ecchymosis, no edema, non-distended, scaphoid, no visible herniation and other (Left lower quadrant pigtail, cut off about 1 in from the skin.) GI Palp: Yes Soft to palpation, Yes Tenderness to palpation present (GI) (Left lower quadrant and drain site), No Guarding due to palpation present (GI), No Hernia present, No Palpable mass present, No Ascites present and No Rebound tenderness present Auscultation: Hypoactive bowel sounds present Other: Liquid stool draining through the into the pigtail catheter and around the catheter in sizable amounts Skin: General skin exam: normal color, elasticity normal, turgor normal, no ecchymosis, no erythema, pallor and No rashes Rashes: no rashes Wounds: fistulous tract (Left lower quadrant) Neuro: General: patient oriented x3 Cranial nerves: Yes Bilaterally intact EOM present, Yes facial symmetry and Yes Midline tongue present Cognition (Neuro): normal cognition Speech: normal speech Motor exam (neuro): 5/5 motor strength present throughout Extrem: General: normal to inspection and full ROM Psych: Speech and movement: Clear speech present Affect: Anxious affect present Attitude: cooperative Thought process: Normal thought process present Thought content: Yes Normal thought content present Insight: Good insight present (Psych) Judgement: Good judgement present (Psych) Objective Data Vital Signs Vital Signs: Vital Signs - 24 hr 09/10/24 21:48 09/10/24 20:15 09/11/24 06:00 Temperature 36.7 C 36.6 C Pulse Rate 80 80 90 Respiratory Rate 16 16 16 Blood Pressure 111/62 110/61 Pulse Oximetry 100 100 96 Oxygen Delivery Room Air 09/11/24 08:00 09/11/24 14:00 Temperature 36.1 C L Pulse Rate 72 Respiratory Rate 20 Blood Pressure 93/62 L Pulse Oximetry 96 97 Oxygen Delivery Room Air Intake/Output Intake/Output: Intake & Output 09/08/24 09/09/24 09/10/24 09/11/24 23:59 23:59 23:59 23:59 Intake Total 2420 3420.0 2440 568 Output Total 0 30 607 1080 Balance 2420 3390.0 1833 -512 Meds/Results Medications: Active Medications Generic Name Dose Route Start Last Admin Trade Name Freq PRN Reason Stop Dose Admin Enoxaparin Sodium 40 mg 09/10/24 09:00 09/11/24 08:59 Enoxaparin 40 Mg/0.4 Ml Syringe SUB-Q 40 mg DAILY FIDELIA Administration Famotidine 20 mg 09/09/24 21:00 09/11/24 08:58 Famotidine 20 Mg/2 Ml Vial IV PUSH 20 mg Q12HR FIDELIA Administration Hydromorphone HCl 1 mg 09/08/24 07:55 09/11/24 08:59 Hydromorphone Hcl Inj (*Crx) 1 Mg/Ml Syr IV PUSH 1 mg Q2H PRN Administration Pain Rated 7-10 Piperacillin/Tazobactam/Dextrose 3.375 gm in 50 mls @ 100 mls/hr 09/08/24 15:00 09/11/24 14:55 Zosyn 3.375 Gm/Ns 50 Ml IVPB Infused Q6H FIDELIA Infusion Lactated Ringer's 1,000 mls @ 80 mls/hr 09/11/24 18:35 Lr - Lactated Ringers Iv IV CONT .[id number] FIDELIA Ibuprofen 600 mg 09/11/24 11:00 09/11/24 17:49 Ibuprofen 600 Mg Tablet PO 600 mg Q6HR FIDELIA Administration Lorazepam 0.5 mg 09/08/24 19:44 09/11/24 17:49 Lorazepam Inj (*Crx) 2 Mg/Ml Vial IV PUSH 0.5 mg Q6H PRN Administration Anxiety Ondansetron HCl 4 mg 09/08/24 00:14 09/11/24 02:53 Ondansetron Inj 4 Mg/2 Ml Vial IV PUSH 4 mg Q4H PRN Administration Nausea Oxycodone/Acetaminophen 1 tablet 09/11/24 10:24 Oxycodone/Acetaminophen (*Crx) 5-325 Mg Tablet PO Q4H PRN Pain Rated 4-6 Oxycodone/Acetaminophen 1 tab 09/11/24 10:24 09/11/24 16:56 Oxycodone/Acetaminophen (*Crx) 10-325 Mg Tablet PO 1 tab Q4H PRN Administration Pain Rated 7-10 Trazodone HCl 50 mg 09/11/24 18:38 Trazodone Hcl 50 Mg Tablet PO HS PRN Insomnia Radiology Results: ITS Impressions Catheter Placement CT 09/08/24 14:14 IMPRESSION: 1[address] CT-guided upsizing to 12 Malagasy of a prior 8.5 Malagasy left lower quadrant percutaneous abscess drain.. 2. The catheter will be managed by Dr. Vences. 3. Patent fistulous draining tract with small amount of the water-soluble contrast injected into the percutaneous abscess drain extending into the proximal sigmoid colon and refluxing proximally into the distal descending colon. Abdomen/Pelvis CT 09/10/24 08:53 IMPRESSION: 1. Interval upsizing of a left lower quadrant percutaneous abscess drain within a residual 2.2 x 1.9 cm abscess cavity located within a larger region of phlegmonous change with smaller of a communicating extension of the abscess. No other drainable abscess is identified. 2. Small amount of likely reactive nonorganized appearing free fluid in the deeppelvis. 3. Focal wall thickening and narrowing of the lumen of the proximal sigmoid colon potentially representing a stricture related to diverticulitis which is located at the site of a previous identified draining sinus tract evident at thetime of the drainage catheter exchange. Imaging Attestation: I personally reviewed and interpreted this imaging study as follows: (CT scans abdomen and pelvis from 09/07 and 09/10) My impression: Improved left lower quadrant abscess, involves abdominal wall Radiologist's impression: Same This report may have been done utilizing a voice recognition system. Attempts have been made to correct errors. However, there may be uncorrected grammatical,spelling, and recognition errors present. Report Initialized date/time: Aguilar Lang MD 09/11/241904 Electronically signed by: Aguilar Lang MD 09/11/241904 Progress Note Author [facility] September 12, 2024 8:11am Note Date/Time September 12, 2024 8 :11am [place] [id number] [address] [address] Anesthesiology Progress Note Signed Patient: Libby Maldonado MR#: [id number] : 1990 Acct:[id number] Age: 33 ADM Date: 09/08/24 Loc: [id number]: Elham Vences M.D. cc: ~ Anes - Initial Pre Proc Eval Procedure: Operation Date: 09/08/24 11:00 Proposed Procedures p Comp Tomography Guide Abscess Cath Placement - Marco A Alvarado MD Operation Date: 09/12/24 09:00 Proposed Procedures p Open Sigmoidectomy, Possible Colostomy or Ileostomy - Aguilar Lang MD Date/Time: 09/12/24 08:09 Surgeon: Elham Vences MD Pre Op Diagnosis: Diverticulitis w Colocutaneous Fistula Patient Data Age: 33 Gender: F Height: 1.57 m Weight: 50 kg Last Vital Signs Temp 36.6 C 09/12/24 05:21 Pulse 84 09/12/24 05:21 Resp 14 09/12/24 05:21 BP 101/61 09/12/24 05:21 Pulse Ox 96 09/12/24 05:21 O2 Del Method Room Air 09/11/24 20:30 O2 Flow Rate 2 09/08/24 12:40 Allergies Allergy/AdvReac Type Severity Reaction Status Date / Time No Known Allergies Allergy Verified 09/08/24 01:04 Home Medications Medication Instructions Recorded Confirmed Type amoxicillin 875 mg-potassium 1 tablet PO Q12H #10 tabs 09/03/24 09/08/24 Rx clavulanate 125 mg tablet ketorolac 10 mg tablet 10 mg PO Q6H 4 days #16 tabs 09/03/24 09/08/24 Rx oxycodone-acetaminophen 5 mg-325 0.5 - 1 tablet PO Q6H PRN pain #20 09/03/24 09/08/24 Rx mg tablet tabs ondansetron 4 mg disintegrating 4 mg PO Q8H 09/08/24 09/08/24 History tablet Laboratory Tests 09/11/24 09/12/24 20:02 05:45 WBC 8.1 K/mm3 (4.5-10.0) RBC 2.86 L M/mm3 (4.2-5.4) Hgb 7.7 L g/dL (12.0-15.0) Hct 24.4 L % (37.0-47.0) MCV 85.3 fl (80-100) MCH 26.9 pg (26-34) MCHC 31.6 L g/dl (32-36) RDW 14.2 % (11.5-14.5) Plt Count 396 H k/mm3 (150-375) MPV 8.7 fl (7.4-10.4) Sodium 136 L mmol/L (137-145) Potassium 3.5 mmol/L (3.4-5.0) Chloride 103 mmol/L (98-107) Carbon Dioxide 24 mmol/L (22-30) Anion Gap 9 mmol/L (4-12) BUN < 2 L mg/dL (7-17) Creatinine 0.50 L mg/dL (0.7-1.0) Estim Creat Clear Calc 106 ml/min Estimated GFR > 60 (59 - ) Glucose 95 mg/dL (65-110) Calcium 8.2 L mg/dL (8.4-10.2) Carcinoembryonic Ag 3.9 H ng/mL (0.0-3.0) Blood Type O Negative Antibody Screen Negative Patient hx anesthesia problems: none Family hx anesthesia problems: none Results Review: All pre-operative results and documents have been reviewed as part of the pre-operative evaluation. [facility] Past Medical History Medical History (Updated 09/12/24 @ 08:09 by Andres Gillis MD) Anxiety Asthma in childhood, resolved Colocutaneous fistula Diverticulitis of large intestine with abscess Fecal peritonitis Surgical History Surgical History H/O gynecological procedure Mirena IUD insertion Family History Family History Mother Diverticulitis Father Heart problem Social History Social History Years smoked: 15 Smoking status: Current every day smoker Tobacco type: e-cigarettes/vaping Second hand tobacco smoke exposure: Yes Alcohol intake: never Substance use type: marijuana and other [...] the patient): Female Spiritual care concerns: No Anes - Eval Final PreProcedure Day of Procedure 09/12/24 08:09 Patient weight: normal Heart: regular rate and rhythm Lungs: clear to auscultation Airway: Mallampati scale class II Neurological: alert and oriented Last oral intake: >/= 8 hours ASA classification: II Emergent: no Anesthetic plan: proceed Anesthesia type and monitoring: general ETT and standard monitoring Results Review: All pre-operative results and documents have been reviewed as part of the pre-operative evaluation. Informed Consent: The patient's anesthetic plan and its attendant risks and benefits were discussed with the patient/family/POA. Questions were solicited and answers provided to the satisfaction of the patient/family/POA. This report may have been done utilizing a voice recognition system. Attempts have been made to correct errors. However, there may be uncorrected grammatical,spelling, and recognition errors present. Report Initialized date/time: Andres Gillis II, MD 09/12/24810 Electronically signed by: Andres iGllis II, MD 09/12/24810 Progress Note Author [facility] September 13, 2024 2:41pm Note Date/Time September 13, 2024 2 :41pm [place] [address] [address] [place] [address] General Surgery Progress Note Signed Patient: Libby Maldonado MR#: [id number] : 1990 Acct:[id number] Age: 33 ADM Date: 09/08/24 Loc: [id number]: Elham Vences M.D. cc: ~ Progress Note: A&P Assessment and Plan (1) Colon perforation: Code(s): K63.1 - Perforation of intestine (nontraumatic) Status: Acute Assessment and Plan: Had a rough night with postoperative pain and nausea but no vomiting. Feeling alittle better today with still incisional pain. Nausea has been gone since early this morning. Wounds look good. Continue clear liquids in small amounts. Up in chair today. Recheck labs and exam again tomorrow. Discussed with patient the possibility that this may be due to a neoplasm rather than diverticulitis. Explained that pathology did look at the specimen and it appeared there was a mass but no frozen section and no definitive diagnosis haveyet been made. Her focus now should be on recovering from surgery. 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 Left lower quadrant abscess cavity packed (3) Abdominal wall abscess: Code(s): L02.211 - Cutaneous abscess of abdominal wall Status: Acute Assessment and Plan: Packed from surgery. Will change packing tomorrow. (4) Anemia: Qualifiers: Other causes of anemia: chronic disease, other Code(s): D64.9 - Anemia, unspecified Status: Chronic Assessment and Plan: Anemia is most likely from chronic disease. Also some dilutional aspects are causative as well. Patient lost very little blood during surgery. She has beenreceiving IV fluids for several days. I will go ahead and give her a dose of Bumex. Her potassium is low and I will supplement her potassium as well. Continue to follow blood counts and electrolytes closely. Subjective Subjective Date/Time Seen: 09/13/24 14:34 Post Op day: 1 Patient reports: still having pain, voiding w/o difficulty, no flatus, no bowel movement, nausea and afebrile Exam Const: General: cooperative, comfortable, alert, awake and thin Orientation/consciousness: patient oriented x3 and No confusion GI: Inspection: no abdominal wall ecchymosis, non-distended, incision (Clean and healing, serous drainage) and scaphoid GI Palp: Yes Soft to palpation, Yes Tenderness to palpation present (GI), No Hernia present and No Palpable masspresent Auscultation: normoactive bowel sounds Objective Data Vital Signs Vital Signs: Vital Signs - 24 hr 09/12/24 14:45 09/12/24 15:02 09/12/24 15:32 Temperature 37.3 C 36.1 C L 36.1 C L Pulse Rate 72 74 84 Respiratory Rate 16 14 14 Blood Pressure 116/74 112/68 117/72 Pulse Oximetry 98 97 98 Oxygen Delivery Room Air 09/12/24 15:25 10/18/24 16:32 09/12/24 16:30 Temperature 36.4 C L Pulse Rate 71 Respiratory Rate 20 20 Blood Pressure 105/66 Pulse Oximetry 99 99 Oxygen Delivery Room Air 09/12/24 20:51 09/12/24 22:28 09/12/24 21:30 Temperature 36.2 C L Pulse Rate 73 80 Respiratory Rate 16 16 Blood Pressure 104/63 Pulse Oximetry 97 Oxygen Delivery Room Air 09/12/24 22:30 09/12/24 23:55 09/13/24 02:00 Temperature Pulse Rate 76 71 74 Respiratory Rate 14 14 16 Blood Pressure Pulse Oximetry Oxygen Delivery 09/13/24 00:32 09/13/24 04:00 09/13/24 04:32 Temperature 36.1 C L 36.1 C L Pulse Rate 75 64 63 Respiratory Rate 16 12 16 Blood Pressure 94/54 L 96/57 L Pulse Oximetry 96 99 Oxygen Delivery 09/13/24 06:00 09/13/24 11:51 Temperature 36.3 C L Pulse Rate 64 74 Respiratory Rate 14 16 Blood Pressure 102/57 L Pulse Oximetry 98 Oxygen Delivery Intake/Output Intake/Output: Intake & Output 09/10/24 09/11/24 09/12/24 09/13/24 23:59 23:59 23:59 23:59 Intake Total 2440 618 2600 1720 Output Total 607 1180 1150 Balance 1833 -562 1450 1720 Meds/Results Medications: Active Medications Generic Name Dose Route Start Last Admin Trade Name Freq PRN Reason Stop Dose Admin Acetaminophen 500 mg 09/12/24 14:47 Acetaminophen 500 Mg Tablet PO Q6H PRN Pain Rated 1-3 Enoxaparin Sodium 40 mg 09/10/24 09:00 09/13/24 09:59 Enoxaparin 40 Mg/0.4 Ml Syringe SUB-Q 40 mg DAILY FIDELIA Administration Famotidine 20 mg 09/12/24 21:00 09/13/24 09:59 Famotidine 20 Mg Tablet PO 20 mg Q12HR FIDELIA Administration Piperacillin/Tazobactam/Dextrose 3.375 gm in 50 mls @ 100 mls/hr 09/08/24 15:00 09/13/24 10:29 Zosyn 3.375 Gm/Ns 50 Ml IVPB Infused Q6H FIDELIA Infusion Ibuprofen 800 mg in 200 mls @ 400 mls/hr 09/12/24 15:00 09/13/24 08:30 Caldolor 800 Mg/200 Ml IVPB Infused Q6H FIDELIA Infusion Morphine Sulfate 150 mg/ 30 mls @ 0.2 mls/hr 09/12/24 18:15 09/13/24 06:00 Sodium Chloride IV CONT 2 mg/hr PRN PRN 0.4 mls/hr Pain management Titration Protocol 1 MG/HR Potassium Chloride/Sodium Chloride 1,000 mls @ 50 mls/hr 09/13/24 09:45 09/13/24 10:55 Kcl 40 Meq/Ns IV CONT 50 mls/hr .Q20H FIDELIA Administration Lidocaine 1 patch 09/12/24 21:50 09/13/24 10:54 Lidocaine 5% Patch TRANSDERM Not Given DAILY FIDELIA Lorazepam 0.5 mg 09/08/24 19:44 09/13/24 10:55 Lorazepam Inj (*Crx) 2 Mg/Ml Vial IV PUSH 0.5 mg Q6H PRN Administration Anxiety Naloxone HCl 0.4 mg 09/12/24 18:15 Naloxone Hcl 0.4 Mg/Ml Vial IV PUSH PRN PRN Opioid Reversal Ondansetron HCl 4 mg 09/08/24 00:14 09/13/24 09:51 Ondansetron Inj 4 Mg/2 Ml Vial IV PUSH 4 mg Q4H PRN Administration Nausea Potassium Chloride 20 meq 09/13/24 17:00 Potassium Chloride 20 Meq Er Tablet PO BIDWM FIDELIA Trazodone HCl 50 mg 09/11/24 18:38 Trazodone Hcl 50 Mg Tablet PO HS PRN Insomnia Radiology Results: ITS Impressions Catheter Placement CT 09/08/24 14:14 [address]ION: 1[address]-guided upsizing to 12 Malagasy of a prior 8.5 Malagasy left lower quadrant percutaneous abscess drain.. 2. The catheter will be managed by Dr. Vences. 3. Patent fistulous draining tract with small amount of the water-soluble contrast injected into the percutaneous abscess drain extending into the proximal sigmoid colon and refluxing proximally into the distal descending colon. Abdomen/Pelvis CT 09/10/24 08:53 IMPRESSION: 1. Interval upsizing of a left lower quadrant percutaneous abscess drain within a residual 2.2 x 1.9 cm abscess cavity located within a larger region of phlegmonous change with smaller of a communicating extension of the abscess. No other drainable abscess is identified. 2. Small amount of likely reactive nonorganized appearing free fluid in the deeppelvis. 3. Focal wall thickening and narrowing of the lumen of the proximal sigmoid colon potentially representing a stricture related to diverticulitis which is located at the site of a previous identified draining sinus tract evident at thetime of the drainage catheter exchange. Labs Labs: Laboratory Results - last 24 hr 09/13/24 06:44 WBC 10.8 H RBC 2.64 L Hgb 7.1 L Hct 23.3 L MCV 88.3 MCH 26.9 MCHC 30.5 L RDW 14.4 Plt Count 477 H MPV 9.3 Sodium 137 Potassium 3.4 Chloride 105 Carbon Dioxide 26 Anion Gap 6 BUN < 2 L Creatinine 0.50 L Estim Creat Clear Calc 106 Estimated GFR > 60 Glucose 116 H Calcium 8.3 L This report may have been done utilizing a voice recognition system. Attempts have been made to correct errors. However, there may be uncorrected grammatical,spelling, and recognition errors present. Report Initialized date/time: Aguilar Lang MD 09/13/241440 Electronically signed by: Aguilar Lang MD 09/13/241440 Progress Note Author Aguilar Lang [facility] September 14, 2024 3:39pm Note Date/Time September 14, 2024 2 :23pm [place] [address] [address] [place] [address] General Surgery Progress Note Signed Patient: Libby Maldonado MR#: [id number] : 1990 Acct:[id number] Age: 33 ADM Date: 09/08/24 Loc: [id number]: Elham Vences M.D. cc: ~ Progress Note: A&P Assessment and Plan (1) Colon perforation: Code(s): K63.1 - Perforation of intestine (nontraumatic) Status: Acute Assessment and Plan: Sigmoidectomy with anastomosis seems to be healing well. Patient is still having considerable postoperative pain, mostly this is in the right lower quadrant which is somewhat unusual considering very little of the surgery was done in that area. Despite the tenderness, she has good bowel sounds and no abdominal distension. Her abdominal incision is healing well. She has been getting nausea but thinks that might be from some of the salty broth with color liquid diet. 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 Advance to full liquid diet. Continued scheduled dose of IV ibuprofen. Recheck labs and exam again tomorrow. 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 (3) Abdominal wall abscess: Code(s): L02.211 - Cutaneous abscess of abdominal wall Status: Acute Assessment and Plan: Left lower quadrant abscess at exit site of pigtail catheter. This goes throughalmost the entire abdominal wall. The packing was removed today. The wound looks clean with no evidence of purulence or tissue necrosis. It was repacked with 1 in iodoform Nu Gauze and redressed today. (4) Anemia: Qualifiers: Other causes of anemia: chronic disease, other Anemia type: other cause Qualified Code(s): D63.8 - Anemia in other chronic diseases classified elsewhere Code(s): D64.9 - Anemia, unspecified Status: Chronic Assessment and Plan: Hemoglobin dipped below 7 today. Her blood pressure is stable and she is not tachycardic. Her only complaints was when getting up is that her abdomen hurts. I think a significant portion of the anemia is due to dilution. Will give another dose of Bumex today and continue to follow H&H closely. I do not see any signs of intra-abdominal bleeding. Subjective Subjective Date/Time Seen: 09/14/24 14:21 Post Op day: 3 Patient reports: still having pain (Slightly better, more in the right lower quadrant than elsewhere), voiding w/o difficulty, flatus, no bowel movement, nausea and afebrile Exam Const: General: cooperative, comfortable, no acute distress, alert, awake, anxious and thin Nutritional Appearance: thin Orientation/consciousness: patient oriented x3 GI: Inspection: Abdominal wall edema, non-distended, incision (Serous drainage, looks good), scaphoid, no visible herniation and other (Left lower quadrant abscess clean and starting to heal, repacked) GI Palp: Yes Soft to palpation, Yes Tenderness to palpation present (GI), No Guarding due to palpation present (GI) and No Rebound tenderness present Auscultation: normalbowel sounds Neuro: General: patient oriented x3 and no focal motor deficits Extrem: General: no calf tenderness and no edema Psych: Affect: normal affect Insight: Good insight present (Psych) Judgement: Good judgement present (Psych) Objective Data Vital Signs Vital Signs: Vital Signs - 24 hr 09/13/24 15:49 09/13/24 16:05 09/13/24 20:41 Temperature 36.3 C L 36.2 C L Pulse Rate 62 77 88 Respiratory Rate 16 12 16 Blood Pressure 95/63 L 100/61 Pulse Oximetry 95 95 Oxygen Delivery 09/14/24 00:10 09/14/24 00:10 09/13/24 20:30 Temperature Pulse Rate 60 60 Respiratory Rate 14 14 Blood Pressure Pulse Oximetry Oxygen Delivery Room Air 09/14/24 05:15 Temperature 36.8 C Pulse Rate 62 Respiratory Rate 18 Blood Pressure 95/58 L Pulse Oximetry 96 Oxygen Delivery Intake/Output Intake/Output: Intake & Output 09/11/24 09/12/24 09/13/24 09/14/24 23:59 23:59 23:59 23:59 Intake Total 618 2600 2440 1830 Output Total 1180 1150 Balance -562 1450 2440 1830 Meds/Results Medications: Active Medications Generic Name Dose Route Start Last Admin Trade Name Freq PRN Reason Stop Dose Admin Acetaminophen 500 mg 09/12/24 14:47 Acetaminophen 500 Mg Tablet PO Q6H PRN Pain Rated 1-3 Bumetanide 2 mg 09/14/24 14:19 Bumetanide Inj 1 Mg/4 Ml Vial IV PUSH 09/14/24 14:20 ONCE ONE Enoxaparin Sodium 40 mg 09/10/24 09:00 09/14/24 11:03 Enoxaparin 40 Mg/0.4 Ml Syringe SUB-Q 40 mg DAILY FIDELIA Administration Famotidine 20 mg 09/12/24 21:00 09/14/24 09:15 Famotidine 20 Mg Tablet PO 20 mg Q12HR FIDELIA Administration Piperacillin/Tazobactam/Dextrose 3.375 gm in 50 mls @ 100 mls/hr 09/08/24 15:00 09/14/24 11:50 Zosyn 3.375 Gm/Ns 50 Ml IVPB Infused Q6H FIDELIA Infusion Ibuprofen 800 mg in 200 mls @ 400 mls/hr 09/12/24 15:00 09/14/24 12:48 Caldolor 800 Mg/200 Ml IVPB Infused Q6H FIDELIA Infusion Morphine Sulfate 150 mg/ 30 mls @ 0.2 mls/hr 09/12/24 18:15 09/14/24 00:10 Sodium Chloride IV CONT 1 mg/hr PRN PRN 0.2 mls/hr Pain management Administration Protocol 1 MG/HR Potassium Chloride/Sodium Chloride 1,000 mls @ 50 mls/hr 09/13/24 09:45 09/14/24 11:01 Kcl 40 Meq/Ns IV CONT 50 mls/hr .Q20H FIDELIA Administration Lidocaine 1 patch 09/12/24 21:50 09/14/24 11:20 Lidocaine 5% Patch TRANSDERM 1 patch DAILY FIDELIA Administration Lorazepam 0.5 mg 09/08/24 19:44 09/14/24 12:45 Lorazepam Inj (*Crx) 2 Mg/Ml Vial IV PUSH 0.5 mg Q6H PRN Administration Anxiety Naloxone HCl 0.4 mg 09/12/24 18:15 Naloxone Hcl 0.4 Mg/Ml Vial IV PUSH PRN PRN Opioid Reversal Potassium Chloride 20 meq 09/14/24 17:00 Potassium Chloride 20 Meq Er Tablet PO TID FIDELIA Prochlorperazine Edisylate 10 mg 09/13/24 21:51 09/13/24 22:09 Prochlorperazine Edisylate 10 Mg/2 Ml Vial IV PUSH 10 mg Q6H PRN Administration Nausea And Vomiting Trazodone HCl 50 mg 09/11/24 18:38 Trazodone Hcl 50 Mg Tablet PO HS PRN Insomnia Radiology Results: ITS Impressions Catheter Placement CT 09/08/24 14:14 [address]ION: 1[address]-guided upsizing to 12 Malagasy of a prior 8.5 Malagasy left lower quadrant percutaneous abscess drain.. 2. The catheter will be managed by Dr. Vences. 3. Patent fistulous draining tract with small amount of the water-soluble contrast injected into the percutaneous abscess drain extending into the proximal sigmoid colon and refluxing proximally into the distal descending colon. Abdomen/Pelvis CT 09/10/24 08:53 IMPRESSION: 1. Interval upsizing of a left lower quadrant percutaneous abscess drain within a residual 2.2 x 1.9 cm abscess cavity located within a larger region of phlegmonous change with smaller of a communicating extension of the abscess. No other drainable abscess is identified. 2. Small amount of likely reactive nonorganized appearing free fluid in the deeppelvis. 3. Focal wall thickening and narrowing of the lumen of the proximal sigmoid colon potentially representing a stricture related to diverticulitis which is located at the site of a previous identified draining sinus tract evident at thetime of the drainage catheter exchange. Labs Labs: Laboratory Results - last 24 hr 09/14/24 06:05 WBC 6.1 RBC 2.57 L Hgb 6.9 L* Hct 22.6 L MCV 87.9 MCH 26.8 MCHC 30.5 L RDW 14.4 Plt Count 396 H MPV 9.4 Sodium 139 Potassium 3.4 Chloride 106 Carbon Dioxide 30 Anion Gap 3 L BUN < 2 L Creatinine 0.50 L Estim Creat Clear Calc 106 Estimated GFR > 60 Glucose 92 Calcium 8.3 L This report may have been done utilizing a voice recognition system. Attempts have been made to correct errors. However, there may be uncorrected grammatical,spelling, and recognition errors present. Report Initialized date/time: Aguilar Lang MD 09/14/24 / 1423 Electronically signed by: Aguilar Lang MD 09/14/24 1539 Progress Note Author [facility] September 15, 2024 11:42am Note Date/Time September 15, 2024 1 1:42am [facility] [address] [place] [address] General Surgery Progress Note Signed Patient: Libby Maldonado MR#: [id number] : 1990 Acct:[id number] Age: 33 ADM Date: 09/08/24 Loc: [id number]: Elham Vences M.D. cc: ~ Progress Note: A&P Assessment and Plan (1) Colon perforation: Code(s): K63.1 - Perforation of intestine (nontraumatic) Status: Acute Assessment and Plan: Sigmoidectomy with anastomosis seems to be healing well. Bowel function has returned. Still complaining of RLQ abdominal pain, although it seems to be improving. Unclear why her pain is in the RLQ, but she seems to be slowly improving. Will advance to a soft diet today. I will also stop the basal rate on the Morphine SKIN DIVING TEACHER and keep her bolus dose at 1 mg. Hopefully, we can discontinue the SKIN DIVING TEACHER tomorrow if her pain is still controlled. Continue scheduledIV Ibuprofen. Will recheck labs and exam again tomorrow. Pathology still pending. 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 (3) Abdominal wall abscess: Code(s): L02.211 - Cutaneous abscess of abdominal wall Status: Acute Assessment and Plan: Left lower quadrant abscess at exit site of pigtail catheter. This goes throughalmost the entire abdominal wall. Appears to be healing well with no purulent drainage. Continue daily packing dressing changes with 1 iodoform Nu gauze. (4) Anemia: Qualifiers: Anemia type: other cause Other causes of anemia: chronic disease, other Qualified Code(s): D63.8 - Anemia in other chronic diseases classified elsewhere Code(s): D64.9 - Anemia, unspecified Status: Chronic Assessment and Plan: Hemoglobin remains low but stable at 6.8 today. She is hemodynamically stable and asymptomatic. Will diurese again today with another dose of IV Bumex and repeat labs again tomorrow. No signs of intra-abdominal bleeding, possibly dilutional. Plan I have discussed the patient's case and plan of care with Dr. Lang. Subjective Subjective Date/Time Seen: 09/15/24 11:33 Post Op day: 3 (Sigmoid colon resection with hand-sewn end-to-end anastomosis, drainage abdominal wall abscess) Patient reports: feels better, pain is less, tolerating liquids well, voiding w/o difficulty, flatus, bowel movement and afebrile Interval history: Patient is having less abdominal pain today. She reports most of her pain is in the LLQ where she has the open wound that is being packed and also intermittent pain in the RLQ. She is still having random intermittent nausea. She denies any aggravating factors. She is taking Compazine as needed and it is helping controlher nausea. No vomiting. Her pain is well controlled on the Morphine SKIN DIVING TEACHER. She actually reports feeling drowsy and wanting to wake up more. She is ambulating to the bathroom and doing well with this. Exam Const: General: comfortable and no acute distress Orientation/consciousness: patient oriented x3 GI: Inspection: non-distended, incision (Serous drainage, healing well, no erythema) and other (Left lower quadrant abscess clean and starting to heal, repacked) GI Palp: Yes Soft to palpation, Yes Tenderness to palpation present(GI) (LLQ and RLQ) and No Guarding due to palpation present (GI) Auscultation: normal bowel sounds Neuro: General: moves all extremities and no focal motor deficits Extrem: General: no calf tenderness and no edema Objective Data Vital Signs Vital Signs: Vital Signs - 24 hr 09/14/24 14:00 09/14/24 18:51 09/14/24 20:00 Temperature 98.1 F Pulse Rate 108 H 68 Respiratory Rate 20 16 Blood Pressure 129/76 Pulse Oximetry 94 Oxygen Delivery Room Air 09/14/24 22:00 09/15/24 06:00 Temperature 99.0 F 96.8 F L Pulse Rate 108 H 67 Respiratory Rate 14 14 Blood Pressure 105/65 101/57 L Pulse Oximetry 92 92 Oxygen Delivery Intake/Output Intake/Output: Intake & Output 09/12/24 09/13/24 09/14/24 09/15/24 23:59 23:59 23:59 23:59 Intake Total 2600 2440 2450 1257.5 Output Total 1150 800 Balance 1450 2440 2450 457.5 Meds/Results Medications: Active Medications Generic Name Dose Route Start Last Admin Trade Name Freq PRN Reason Stop Dose Admin Acetaminophen 500 mg 09/12/24 14:47 Acetaminophen 500 Mg Tablet PO Q6H PRN Pain Rated 1-3 Enoxaparin Sodium 40 mg 09/10/24 09:00 09/14/24 11:03 Enoxaparin 40 Mg/0.4 Ml Syringe SUB-Q 40 mg DAILY FIDELIA Administration Famotidine 20 mg 09/12/24 21:00 09/15/24 08:31 Famotidine 20 Mg Tablet PO 20 mg Q12HR FIDELIA Administration Piperacillin/Tazobactam/Dextrose 3.375 gm in 50 mls @ 100 mls/hr 09/08/24 15:00 09/15/24 08:31 Zosyn 3.375 Gm/Ns 50 Ml IVPB 100 mls/hr Q6H FIDELIA Administration Ibuprofen 800 mg in 200 mls @ 400 mls/hr 09/12/24 15:00 09/15/24 08:32 Caldolor 800 Mg/200 Ml IVPB 400 mls/hr Q6H FIDELIA Administration Potassium Chloride/Sodium Chloride 1,000 mls @ 50 mls/hr 09/13/24 09:45 09/15/24 02:10 Kcl 40 Meq/Ns IV CONT 50 mls/hr .Q20H FIDELIA Administration Morphine Sulfate 150 mg/ 30 mls @ 0 mls/hr 09/15/24 11:32 Sodium Chloride IV CONT PRN PRN Pain management Protocol 0 MG/HR Lidocaine 1 patch 09/12/24 21:50 09/15/24 08:33 Lidocaine 5% Patch TRANSDERM Not Given DAILY FIDELIA Lorazepam 0.5 mg 09/08/24 19:44 09/14/24 12:45 Lorazepam Inj (*Crx) 2 Mg/Ml Vial IV PUSH 0.5 mg Q6H PRN Administration Anxiety Naloxone HCl 0.4 mg 09/12/24 18:15 Naloxone Hcl 0.4 Mg/Ml Vial IV PUSH PRN PRN Opioid Reversal Potassium Chloride 20 meq 09/14/24 17:00 09/15/24 08:31 Potassium Chloride 20 Meq Er Tablet PO 20 meq TID FIDELIA Administration Prochlorperazine Edisylate 10 mg 09/13/24 21:51 09/15/24 00:01 Prochlorperazine Edisylate 10 Mg/2 Ml Vial IV PUSH 10 mg Q6H PRN Administration Nausea And Vomiting Trazodone HCl 50 mg 09/11/24 18:38 Trazodone Hcl 50 Mg Tablet PO HS PRN Insomnia Radiology Results: ITS Impressions Catheter Placement CT 09/08/24 14:14 IM[address]ION: 1[address] CT-guided upsizing to 12 Malagasy of a prior 8.5 Malagasy left lower quadrant percutaneous abscess drain.. 2. The catheter will be managed by Dr. Vences. 3. Patent fistulous draining tract with small amount of the water-soluble contrast injected into the percutaneous abscess drain extending into the proximal sigmoid colon and refluxing proximally into the distal descending colon. Abdomen/Pelvis CT 09/10/24 08:53 IMPRESSION: 1. Interval upsizing of a left lower quadrant percutaneous abscess drain within a residual 2.2 x 1.9 cm abscess cavity located within a larger region of phlegmonous change with smaller of a communicating extension of the abscess. No other drainable abscess is identified. 2. Small amount of likely reactive nonorganized appearing free fluid in the deeppelvis. 3. Focal wall thickening and narrowing of the lumen of the proximal sigmoid colon potentially representing a stricture related to diverticulitis which is located at the site of a previous identified draining sinus tract evident at thetime of the drainage catheter exchange. Labs Labs: Laboratory Results - last 24 hr 09/15/24 05:55 WBC 6.3 RBC 2.60 L Hgb 6.8 L* Hct 22.9 L MCV 88.1 MCH 26.2 MCHC 29.7 L RDW 14.5 Plt Count 470 H MPV 9.5 Sodium 139 Potassium 3.7 Chloride 101 Carbon Dioxide 35 H Anion Gap 3 L BUN < 2 L Creatinine 0.60 L Estim Creat Clear Calc 90 Estimated GFR > 60 Glucose 90 Calcium 8.3 L This report may have been done utilizing a voice recognition system. Attempts have been made to correct errors. However, there may be uncorrected grammatical,spelling, and recognition errors present. Report Initialized date/time: Barbie Smith APN 09/15/241141 Electronically signed by: Barbie Smith APN 09/15/24 1142 Progress Note Author [facility] September 16, 2024 5:01pm Note Date/Time September 16, 2024 1 1:24[facility] [address] [facility] [address] [place] [address] General Surgery Progress Note Signed with Addenda Patient: Libby Maldonado MR#: [id number] : 1990 Acct:[id number] Age: 33 ADM Date: 09/08/24 Loc: [id number]: Elham Vences M.D. cc: ~ ADDENDUM I discussed the pathologic findings with the patient as these just came back this morning. I also talked to the pathologist. The tumor does extend outside the wall of the colon and therefore the radial margins are positive. The proximal and distal margins are clear. The lymph nodes are all negative. This is a T4a N0 M0 tumor or stage II B. Explained to the patient that most likely chemotherapy would be indicated once she has healed adequately from surgery. Currently she is doing much better postoperatively. She is still anemic but it is stable. She is eating better and we can stop her IV fluids today. We will also discontinue her SKIN DIVING TEACHER and switch to oral pain medication with IV narcotic forbackup pain. I will continue the scheduled dose of IV ibuprofen for now. Her wounds are healing well. Continue to follow closely. Addendum Documented By: Aguilar Lang MD 09/16/24 1701 Addendum Signed By: <Electronically signed by Aguilar Lang MD> 4 1701 Progress Note: A&P Assessment and Plan (1) Colon perforation: Code(s): K63.1 - Perforation of intestine (nontraumatic) Status: Acute Assessment and Plan: Healing well following sigmoidectomy with anastomosis. Oral intake is improvingand she is tolerating a soft diet. Will advance to a regular diet today. She is requiring last morphine on the SKIN DIVING TEACHER. Will transition to p.r.n. analgesics andstop the SKIN DIVING TEACHER. Continue scheduled IV ibuprofen again today. Recheck labs tomorrow. Pathology showed adenocarcinoma with perforation, which Dr. Lang discussed with the patient in detail. She will eventually need an Oncology referral as an outpatient when she recovers from the surgery. 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 (3) Abdominal wall abscess: Code(s): L02.211 - Cutaneous abscess of abdominal wall Status: Acute Assessment and Plan: Left lower quadrant abscess at exit site of pigtail catheter. This appears to be healing well with no purulent drainage. Continue daily packing dressing changes with 1 iodoform Nu gauze. (4) Anemia: Qualifiers: Anemia type: other cause Other causes of anemia: chronic disease, other Qualified Code(s): D63.8 - Anemia in other chronic diseases classified elsewhere Code(s): D64.9 - Anemia, unspecified Status: Chronic Assessment and Plan: Hemoglobin remains low but stable at 6.9 today. She is hemodynamically stable and asymptomatic. No signs of intra-abdominal bleeding. We will give another dose of IV Bumex today for and stop her IV fluids now that she is tolerating oral intake better. Plan I have discussed the patient's case and plan of care with Dr. Lang. Subjective Subjective Date/Time Seen: 09/16/24 11:11 Post Op day: 4 (Sigmoid colon resection with hand-sewn end-to-end anastomosis, drainage abdominal wall abscess) Interval history: Patient tearful this morning, she is feeling anxious. She reports the Ativan ishelping. Her pain was well controlled overnight and in review of her history onthe SKIN DIVING TEACHER it appears she got 8 mg morphine total for the last 24 hours. She is nolonger having the right lower quadrant pain today. She reports her pain is at the midline incision and left lower quadrant near the abscess. She was able to get up and ambulate in the halls yesterday multiple times and tolerated this well. Still having nausea, but reports this has improved. She is able to tolerate her meals and oral intake is improving. She reports drinking plenty offluids. Exam Const: General: comfortable and no acute distress Orientation/consciousness: patient oriented x3 GI: Inspection: non-distended, incision (Serous drainage, healing well, no erythema) and other (Left lower quadrant abscess clean and starting to heal, repacked) GI Palp: Yes Soft to palpation, Yes Tenderness to palpation present(GI) (no RLQ tenderness today, tender at midline incision and LLQ), No Guarding due to palpation present (GI) and No Rebound tenderness present Auscultation:normal bowel sounds Neuro: General: moves all extremities and no focal motor deficits Extrem: General: no calf tenderness and no edema Psych: Mental Status: mental status grossly normal Objective Data Vital Signs Vital Signs: Vital Signs - 24 hr 09/15/24 14:00 09/15/24 20:33 09/15/24 19:15 Temperature 98.1 F 98.2 F Pulse Rate 85 105 H 105 H Respiratory Rate 16 14 14 Blood Pressure 104/68 103/67 Pulse Oximetry 99 99 Oxygen Delivery 09/15/24 23:58 09/16/24 01:56 09/16/24 01:56 Temperature 97.6 F Pulse Rate 76 70 70 Respiratory Rate 14 16 16 Blood Pressure 94/64 L Pulse Oximetry 97 Oxygen Delivery 09/16/24 03:58 09/16/24 08:00 09/16/24 08:30 Temperature 97.4 F L 97.8 F Pulse Rate 64 91 Respiratory Rate 14 18 Blood Pressure 106/66 121/61 Pulse Oximetry 100 99 Oxygen Delivery Room Air Intake/Output Intake/Output: Intake & Output 09/13/24 09/14/24 09/15/24 09/16/24 23:59 23:59 23:59 23:59 Intake Total 2440 2450 3487.5 630 Output Total 800 Balance 2440 2450 2687.5 630 Meds/Results Medications: Active Medications Generic Name Dose Route Start Last Admin Trade Name Freq PRN Reason Stop Dose Admin Acetaminophen 500 mg 09/12/24 14:47 Acetaminophen 500 Mg Tablet PO Q6H PRN Pain Rated 1-3 Enoxaparin Sodium 40 mg 09/10/24 09:00 09/16/24 08:39 Enoxaparin 40 Mg/0.4 Ml Syringe SUB-Q Not Given DAILY FIDELIA Famotidine 20 mg 09/12/24 21:00 09/16/24 08:36 Famotidine 20 Mg Tablet PO 20 mg Q12HR FIDELIA Administration Piperacillin/Tazobactam/Dextrose 3.375 gm in 50 mls @ 100 mls/hr 09/08/24 15:00 09/16/24 09:07 Zosyn 3.375 Gm/Ns 50 Ml IVPB Infused Q6H FIDELIA Infusion Ibuprofen 800 mg in 200 mls @ 400 mls/hr 09/12/24 15:00 09/16/24 09:32 Caldolor 800 Mg/200 Ml IVPB 400 mls/hr Q6H FIDELIA Administration Potassium Chloride/Sodium Chloride 1,000 mls @ 50 mls/hr 09/13/24 09:45 09/16/24 05:12 Kcl 40 Meq/Ns IV CONT 50 mls/hr .Q20H FIDELIA Administration Morphine Sulfate 150 mg/ 30 mls @ 0 mls/hr 09/15/24 11:32 09/16/24 01:56 Sodium Chloride IV CONT 6 mg/hr PRN PRN 1.2 mls/hr Pain management Administration Protocol 0 MG/HR Lidocaine 1 patch 09/12/24 21:50 09/16/24 08:38 Lidocaine 5% Patch TRANSDERM 1 patch DAILY FIDELIA Administration Lorazepam 0.5 mg 09/08/24 19:44 09/16/24 09:37 Lorazepam Inj (*Crx) 2 Mg/Ml Vial IV PUSH 0.5 mg Q6H PRN Administration Anxiety Naloxone HCl 0.4 mg 09/12/24 18:15 Naloxone Hcl 0.4 Mg/Ml Vial IV PUSH PRN PRN Opioid Reversal Potassium Chloride 20 meq 09/14/24 17:00 09/16/24 08:36 Potassium Chloride 20 Meq Er Tablet PO 20 meq TID FIDELIA Administration Prochlorperazine Edisylate 10 mg 09/13/24 21:51 09/15/24 00:01 Prochlorperazine Edisylate 10 Mg/2 Ml Vial IV PUSH 10 mg Q6H PRN Administration Nausea And Vomiting Trazodone HCl 50 mg 09/11/24 18:38 09/15/24 21:15 Trazodone Hcl 50 Mg Tablet PO 50 mg HS PRN Administration Insomnia Radiology Results: ITS Impressions Catheter Placement CT 09/08/24 14:[address]: 1[address]-guided upsizing to 12 Malagasy of a prior 8.5 Malagasy left lower quadrant percutaneous abscess drain.. 2. The catheter will be managed by Dr. Vences. 3. Patent fistulous draining tract with small amount of the water-soluble contrast injected into the percutaneous abscess drain extending into the proximal sigmoid colon and refluxing proximally into the distal descending colon. Abdomen/Pelvis CT 09/10/24 08:53 IMPRESSION: 1. Interval upsizing of a left lower quadrant percutaneous abscess drain within a residual 2.2 x 1.9 cm abscess cavity located within a larger region of phlegmonous change with smaller of a communicating extension of the abscess. No other drainable abscess is identified. 2. Small amount of likely reactive nonorganized appearing free fluid in the deeppelvis. 3. Focal wall thickening and narrowing of the lumen of the proximal sigmoid colon potentially representing a stricture related to diverticulitis which is located at the site of a previous identified draining sinus tract evident at thetime of the drainage catheter exchange. Labs Labs: Laboratory Results - last 24 hr 09/16/24 06:11 WBC 6.5 RBC 2.56 L Hgb 6.9 L* Hct 22.1 L MCV 86.3 MCH 27.0 MCHC 31.2 L RDW 14.6 H Plt Count 389 H MPV 9.0 Sodium 139 Potassium 3.6 Chloride 103 Carbon Dioxide 31 H Anion Gap 5 BUN < 2 L Creatinine 0.60 L Estim Creat Clear Calc 90 Estimated GFR > 60 Glucose 105 Calcium 8.4 This report may have been done utilizing a voice recognition system. Attempts have been made to correct errors. However, there may be uncorrected grammatical,spelling, and recognition errors present. Report Initialized date/time: Barbie Smith APN 09/16/24 / 1123 Electronically signed by: Barbie Smith APN 09/16/241123 Progress Note Author Barbie [facility] September 17, 2024 5:02pm Note Date/Time September 17, 2024 2 :55pm [facility] [address] [place] [address] General Surgery Progress Note Signed Patient: Libby Maldonado MR#: [id number] : 1990 Acct:[id number] Age: 33 ADM Date: 09/08/24 Loc: [id number]: Elham Vences M.D. cc: ~ Progress Note: A&P Assessment and Plan (1) Colon perforation: Code(s): K63.1 - Perforation of intestine (nontraumatic) Status: Acute Assessment and Plan: Healing well following sigmoidectomy with anastomosis. Pain is well controlled on oral analgesics. Will stop the IV Ibuprofen. Continue dressing changes and packing to the LLQ wound. Will stop IV antibiotics today. Hopefully she will be stable for discharge in the next few days as she continues to slowly improve. 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 (3) Abdominal wall abscess: Code(s): L02.211 - Cutaneous abscess of abdominal wall Status: Acute Assessment and Plan: Left lower quadrant abscess at exit site of pigtail catheter. This appears to be healing well with no purulent drainage. Continue daily packing dressing changes with 1 iodoform Nu gauze. (4) Anemia: Qualifiers: Anemia type: other cause Other causes of anemia: chronic disease, other Qualified Code(s): D63.8 - Anemia in other chronic diseases classified elsewhere Code(s): D64.9 - Anemia, unspecified Status: Chronic Assessment and Plan: Hemoglobin up slightly to 7.0 after diuresis. Plan I have discussed the patient's case and plan of care with Dr. Lang. Subjective Subjective Date/Time Seen: 09/17/24 11:48 Post Op day: 5 (Sigmoid colon resection with hand-sewn end-to-end anastomosis, drainage abdominal wall abscess) Patient reports: feels better, voiding w/o difficulty and afebrile Interval history: Patient reports her pain is well controlled with oral analgesics. She requested to have her IV Ibuprofen stopped as it was burning when going into her IV. She is still having some mild intermittent nausea, but no vomiting. She is able to tolerate her diet. She is up and ambulating in the room independently and reports tolerating this well. No other complaints at this time. Exam Const: General: comfortable and no acute distress Orientation/consciousness: patient oriented x3 GI: Inspection: non-distended GI Palp: Yes Soft to palpation, Yes Tenderness to palpation present (GI) (mostly tender at the midline incision and LLQ ), No Guarding due to palpation present (GI) and No Rebound tenderness present Percussion: Yes normal to percussion Auscultation: normal bowel sounds Other: midline incision with skin edges approximated, there is cloudy serosanguineous drainage draining at the incision near the umbilicus, there is mild localized erythema superior to this area at the top of the incision, when pushing on the top of the incision I express more drainage from the opening near the umbilicus. Objective Data Vital Signs Vital Signs: Vital Signs - 24 hr 09/16/24 16:00 09/16/24 20:00 09/17/24 05:21 Temperature 97.4 F L 97.7 F 97.5 F L Pulse Rate 79 75 52 L Respiratory Rate 20 16 14 Blood Pressure 102/66 99/70 L 93/56 L Pulse Oximetry 100 99 98 Oxygen Delivery 09/17/24 09:19 09/17/24 08:55 09/17/24 14:00 Temperature 97.0 F L Pulse Rate 144 H Respiratory Rate 22 H Blood Pressure 110/74 100/66 Pulse Oximetry 9 L Oxygen Delivery Room Air Intake/Output Intake/Output: Intake & Output 09/14/24 09/15/24 09/16/24 09/17/24 23:59 23:59 23:59 23:59 Intake Total 2450 3487.5 2819 916 Output Total 800 Balance 2450 2687.5 2819 916 Meds/Results Medications: Active Medications Generic Name Dose Route Start Last Admin Trade Name Freq PRN Reason Stop Dose Admin Acetaminophen 650 mg 09/16/24 11:12 Acetaminophen 325 Mg Tablet PO Q4H PRN Mild Pain (1-3) or Fever Enoxaparin Sodium 40 mg 09/10/24 09:00 09/17/24 08:58 Enoxaparin 40 Mg/0.4 Ml Syringe SUB-Q Not Given DAILY [facility] Famotidine 20 mg 09/12/24 21:00 09/17/24 08:59 Famotidine 20 Mg Tablet PO 20 mg Q12HR FIDELIA Administration Ferrous Sulfate 325 mg 09/17/24 09:00 09/17/24 08:59 Ferrous Sulfate [address] PO 325 mg BID FIDELIA Administration Piperacillin/Tazobactam/Dextrose 3.375 gm in 50 mls @ 100 mls/hr 09/08/24 15:00 09/17/24 09:29 Zosyn 3.375 Gm/Ns 50 Ml IVPB Infused Q6H FIDELIA Infusion Lidocaine 1 patch 09/12/24 21:50 09/17/24 09:01 Lidocaine 5% Patch TRANSDERM Not Given DAILY [facility] Lorazepam 0.5 mg 09/08/24 19:44 09/16/24 09:37 Lorazepam Inj (*Crx) 2 Mg/Ml Vial IV PUSH 0.5 mg Q6H PRN Administration Anxiety Morphine Sulfate 2 mg 09/16/24 11:12 Morphine Sulfate (*Crx) 2 Mg/Ml Inj IV PUSH Q2H PRN Pain Rated 7-10 Morphine Sulfate 1 mg 09/16/24 11:12 09/16/24 19:34 Morphine Sulfate (*Crx) 2 Mg/Ml Inj IV PUSH 1 mg Q2H PRN Administration Pain Rated 4-6 Naloxone HCl 0.4 mg 09/12/24 18:15 Naloxone Hcl 0.4 Mg/Ml Vial IV PUSH PRN PRN Opioid Reversal Ondansetron HCl 4 mg 09/17/24 10:43 09/17/24 10:58 Ondansetron Hcl Odt 4 Mg Tablet PO 4 mg Q6H PRN Administration Nausea And Vomiting Oxycodone/Acetaminophen 1 tablet 09/16/24 11:12 Oxycodone/Acetaminophen (*Crx) 5-325 Mg Tablet PO Q4H PRN Pain Rated 4-6 Oxycodone/Acetaminophen 1 tab 09/16/24 11:12 09/17/24 09:57 Oxycodone/Acetaminophen (*Crx) 10-325 Mg Tablet PO 1 tab Q4H PRN Administration Pain Rated 7-10 Potassium Chloride 40 meq 09/17/24 17:00 Potassium Chloride 20 Meq Er Tablet PO BIDWM [facility] Prochlorperazine Edisylate 10 mg 09/13/24 21:51 09/17/24 06:18 Prochlorperazine Edisylate 10 Mg/2 Ml Vial IV PUSH 10 mg Q6H PRN Administration Nausea And Vomiting Trazodone HCl 50 mg 09/11/24 18:38 09/16/24 21:06 Trazodone Hcl 50 Mg Tablet PO 50 mg HS PRN Administration Insomnia Radiology Results: ITS Impressions Catheter Placement CT 09/08/24 14:[address]: 1[address]-guided upsizing to 12 Malagasy of a prior 8.5 Malagasy left lower quadrant percutaneous abscess drain.. 2. The catheter will be managed by Dr. Vences. 3. Patent fistulous draining tract with small amount of the water-soluble contrast injected into the percutaneous abscess drain extending into the proximal sigmoid colon and refluxing proximally into the distal descending colon. Abdomen/Pelvis CT 09/10/24 08:53 IMPRESSION: 1. Interval upsizing of a left lower quadrant percutaneous abscess drain within a residual 2.2 x 1.9 cm abscess cavity located within a larger region of phlegmonous change with smaller of a communicating extension of the abscess. No other drainable abscess is identified. 2. Small amount of likely reactive nonorganized appearing free fluid in the deeppelvis. 3. Focal wall thickening and narrowing of the lumen of the proximal sigmoid colon potentially representing a stricture related to diverticulitis which is located at the site of a previous identified draining sinus tract evident at thetime of the drainage catheter exchange. Labs Labs: Laboratory Results - last 24 hr 09/17/24 06:09 WBC 8.0 RBC 2.72 L Hgb 7.1 L Hct 23.9 L MCV 87.9 MCH 26.1 MCHC 29.7 L RDW 15.0 H Plt Count 494 H MPV 9.6 Sodium 138 Potassium 3.8 Chloride 103 Carbon Dioxide 28 Anion Gap 7 BUN 7 D Creatinine 0.60 L Estim Creat Clear Calc 90 Estimated GFR > 60 Glucose 101 Calcium 8.7 This report may have been done utilizing a voice recognition system. Attempts have been made to correct errors. However, there may be uncorrected grammatical,spelling, and recognition errors present. Report Initialized date/time: Barbie Smith APN 09/17/24 / 1455 Electronically signed by: Barbie Smith APN 09/17/24 1702 Progress Note Author Barbie Luis [facility] September 18, 2024 12:30pm Note Date/Time September 18, 2024 1 2:17pm [facility] [address] [place] [address] General Surgery Progress Note Signed Patient: Libby Maldonado MR#: [id number] : 1990 Acct:[id number] Age: 33 ADM Date: 09/08/24 Loc: [id number]: Elham Vences M.D. cc: ~ Progress Note: A&P Assessment and Plan (1) Colon perforation: Code(s): K63.1 - Perforation of intestine (nontraumatic) Status: Acute Assessment and Plan: Patient found to have perforated colon cancer and is healing well following sigmoidectomy with anastomosis. She is tolerating a regular diet and bowels are moving. WBC count went up to 11,800 today. There is drainage coming from her incision near the umbilicus. Dr. Lang removed some sutures and opened up the top1/3 of the incision, which is now packed with 1 iodoform Nu gauze. We expect this is the cause for her increased white count, but will repeat labs again tomorrow. IV antibiotics were stopped yesterday. She is afebrile and overall clinically improving. 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 (3) Abdominal wall abscess: Code(s): L02.211 - Cutaneous abscess of abdominal wall Status: Acute Assessment and Plan: Left lower quadrant wound continues to heal well. Will stop packing dressing changes and start just cover gauze dressings. (4) Anemia: Qualifiers: Anemia type: other cause Other causes of anemia: chronic disease, other Qualified Code(s): D63.8 - Anemia in other chronic diseases classified elsewhere Code(s): D64.9 - Anemia, unspecified Status: Chronic Assessment and Plan: Chronic anemia likely related to her colon cancer. Hemoglobin has been stable for days and is up to 7.5 today. She was started on iron supplementation. Will continue to monitor. Plan I have discussed the patient's case and plan of care with Dr. Lang. Subjective Subjective Date/Time Seen: 09/18/24 12:15 Post Op day: 6 (Sigmoid colon resection with hand-sewn end-to-end anastomosis, drainage abdominal wall abscess) Patient reports: flatus and bowel movement (BM yesterday) Interval history: Patient is tearful and feeling anxious about her dressing change. Pain is still well controlled. She is tolerating a diet without any issues. Exam GI: Inspection: non-distended GI Palp: Yes Soft to palpation, Yes Tenderness to palpation present (GI) (tenderness near the top of her midline incision), No Guarding due to palpation present (GI) and No Rebound tenderness present Auscultation: normal bowel sounds Other: LLQ wound healing well, packing removed, no purulent drainage, no erythema. Willstop packing dressing changes. Midline incision with a small opening at the umbilicus that is draining cloudy serosanguineous drainage. This opening tracks up to the top of the incision. removed the subcutaneous sutures on the top 1/3 of the incision which allowed the incision to open and drain. Fascia is intact. I then irrigated the wound with hydrogen peroxide diluted in sterile water and packed this with 1 iodoform Nu gauze. I then covered the midline incision and LLQ wound with gauze and tape. Objective Data Vital Signs Vital Signs: Vital Signs - 24 hr 09/17/24 14:45 09/17/24 21:00 09/17/24 20:00 Temperature 97.5 F L 98.8 F Pulse Rate 79 99 Respiratory Rate 18 14 Blood Pressure 100/66 108/64 Pulse Oximetry 99 98 Oxygen Delivery Room Air 09/18/24 05:14 09/18/24 09:00 Temperature 98.0 F Pulse Rate 95 Respiratory Rate 14 Blood Pressure 108/69 Pulse Oximetry 97 Oxygen Delivery Room Air Intake/Output Intake/Output: Intake & Output 09/15/24 09/16/24 09/17/24 09/18/24 23:59 23:59 23:59 23:59 Intake Total 3487.5 2819 1606 540 Output Total 800 Balance 2687.5 2819 1606 540 Meds/Results Medications: Active Medications Generic Name Dose Route Start Last Admin Trade Name Freq PRN Reason Stop Dose Admin Acetaminophen 650 mg 09/16/24 11:12 Acetaminophen 325 Mg Tablet PO Q4H PRN Mild Pain (1-3) or Fever Alprazolam 0.25 mg 09/17/24 17:03 09/18/24 12:03 Alprazolam (*Crx) 0.25 Mg Tablet PO 0.25 mg TID PRN Administration Anxiety Enoxaparin Sodium 40 mg 09/10/24 09:00 09/18/24 08:58 Enoxaparin 40 Mg/0.4 Ml Syringe SUB-Q Not Given DAILY [facility] Famotidine 20 mg 09/12/24 21:00 09/18/24 09:00 Famotidine 20 Mg Tablet PO 20 mg Q12HR FIDELIA Administration Ferrous Sulfate 325 mg 09/17/24 09:00 09/18/24 09:00 Ferrous Sulfate [address] PO 325 mg BID FIDELIA Administration Lidocaine 1 patch 09/12/24 21:50 09/18/24 09:00 Lidocaine 5% Patch TRANSDERM Not Given DAILY [facility] Morphine Sulfate 2 mg 09/16/24 11:12 09/18/24 12:02 Morphine Sulfate (*Crx) 2 Mg/Ml Inj IV PUSH 2 mg Q2H PRN Administration Pain Rated 7-10 Morphine Sulfate 1 mg 09/16/24 11:12 09/16/24 19:34 Morphine Sulfate (*Crx) 2 Mg/Ml Inj IV PUSH 1 mg Q2H PRN Administration Pain Rated 4-6 Naloxone HCl 0.4 mg 09/12/24 18:15 Naloxone Hcl 0.4 Mg/Ml Vial IV PUSH PRN PRN Opioid Reversal Ondansetron HCl 4 mg 09/17/24 10:43 09/17/24 10:58 Ondansetron Hcl Odt 4 Mg Tablet PO 4 mg Q6H PRN Administration Nausea And Vomiting Oxycodone/Acetaminophen 1 tablet 09/16/24 11:12 Oxycodone/Acetaminophen (*Crx) 5-325 Mg Tablet PO Q4H PRN Pain Rated 4-6 Oxycodone/Acetaminophen 1 tab 09/16/24 11:12 09/18/24 09:51 Oxycodone/Acetaminophen (*Crx) 10-325 Mg Tablet PO 1 tab Q4H PRN Administration Pain Rated 7-10 Potassium Chloride 40 meq 09/17/24 17:00 09/18/24 09:00 Potassium Chloride 20 Meq Er Tablet PO 40 meq BIDWM FIDELIA Administration Prochlorperazine Edisylate 10 mg 09/13/24 21:51 09/18/24 12:02 Prochlorperazine Edisylate 10 Mg/2 Ml Vial IV PUSH 10 mg Q6H PRN Administration Nausea And Vomiting Trazodone HCl 50 mg 09/11/24 18:38 09/16/24 21:06 Trazodone Hcl 50 Mg Tablet PO 50 mg HS PRN Administration Insomnia Radiology Results: ITS Impressions Catheter Placement CT 09/08/24 14:[address]: 1[address]-guided upsizing to 12 Malagasy of a prior 8.5 Malagasy left lower quadrant percutaneous abscess drain.. 2. The catheter will be managed by Dr. Vences. 3. Patent fistulous draining tract with small amount of the water-soluble contrast injected into the percutaneous abscess drain extending into the proximal sigmoid colon and refluxing proximally into the distal descending colon. Abdomen/Pelvis CT 09/10/24 08:53 IMPRESSION: 1. Interval upsizing of a left lower quadrant percutaneous abscess drain within a residual 2.2 x 1.9 cm abscess cavity located within a larger region of phlegmonous change with smaller of a communicating extension of the abscess. No other drainable abscess is identified. 2. Small amount of likely reactive nonorganized appearing free fluid in the deeppelvis. 3. Focal wall thickening and narrowing of the lumen of the proximal sigmoid colon potentially representing a stricture related to diverticulitis which is located at the site of a previous identified draining sinus tract evident at thetime of the drainage catheter exchange. Labs Labs: Laboratory Results - last 24 hr 09/18/24 06:15 WBC 11.8 H RBC 2.92 L Hgb 7.5 L Hct 25.8 L MCV 88.4 MCH 25.7 L MCHC 29.1 L RDW 15.2 H Plt Count 614 H MPV 9.5 Sodium 135 L Potassium 3.9 Chloride 100 Carbon Dioxide 27 Anion Gap 8 BUN 7 Creatinine 0.60 L Estim Creat Clear Calc 90 Estimated GFR > 60 Glucose 103 Calcium 9.0 This report may have been done utilizing a voice recognition system. Attempts have been made to correct errors. However, there may be uncorrected grammatical,spelling, and recognition errors present. Report Initialized date/time: Barbie Smith APN 09/18/24 / 1217 Electronically signed by: Barbie Smith APN 09/18/24 1238
--- OUTSIDE RECORDS SUMMARY | 2024-12-03 23:00 | XMS_ITS | Encounter Summary ---
Author Organization [facility] Address [address] [place] [address] Care Team Providers Care Sugar Trucker Name Role Phone Unavailable Primary Care Provider Unavailabl e Reason for Referral * Eval and Treat (Routine) - Open Specialty Diagnoses / Procedures Referred By Sarahac t Referred To Contact Genetics Diagnoses Malignant neoplasm of colon, unspecified part of colon Ryan Garcia MD [address] [employer] [address] [address] Referral ID Status Reason Start Date Expiration Date V isits Requested Visits Authorized [id number] Open CRS to Schedule 11/10/2024 11/10/2025 1 1 RTISING STRATEGIST * Eval and Treat (Routine) - Open Specialty Diagnoses / Procedures Referred By Stacie t Referred To Contact Surgery Diagnoses Malignant neoplasm of colon, unspecified part of colon Procedures PA OFFICE/OUTPATIENT ESTABLISHED MOD MDM 30 MIN PA OFFICE/OUTPATIENT NEW MODERATE MDM 45 MINUTES Ryan Garcia MD [address] [employer] [address] [place] [phone] Aguilar Lang MD NO ADDRESS ON FILE Referral ID Status Reason Start Date Expiration Date V isits Requested Visits Authorized [id number] Open STL CTS 11/10/2024 11/10/2025 1 1 RTISING STRATEGIST * PET Scan (Routine) - Closed Specialty Diagnoses / Procedures Referred By Contac t Referred To Contact Diagnoses Malignant neoplasm of colon, unspecified part of colon Procedures PET TUMOR [place] [address] [place] [address] [place] [phone] [facility] [id number] Referral ID Status Reason Start Date Expiration Date V isits Requested Visits Authorized [id number] Closed STL CTS 11/10/2024 12/11/2025 1 1 RTISING STRATEGIST * Eval and Treat (Routine) - Open Specialty Diagnoses / Procedures Referred By Contac t Referred To Contact Oncology Diagnoses Malignant neoplasm of colon, unspecified part of colon Procedures PA OFFICE/OUTPATIENT ESTABLISHED MOD MDM 30 MIN PA OFFICE/OUTPATIENT NEW MODERATE MDM 45 MINUTES Ryan Garcia MD [address] [place] [address] [place] [phone] Referral ID Status Reason Start Date Expiration Date V isits Requested Visits Authorized [id number] Open STL CTS 11/10/2024 11/11/2025 1 1 RTISING STRATEGIST Reason for Visit * Reason Comments Cancer Establish Care Encounter Details Date Type Department Care Team (Late st Contact Info) Description 11/10/2024 10:30 AM ADVERTISING STRATEGIST Office Visit [facility] [address] [place] [phone] Ryan Garcia MD [address] [place] [address] [place] [phone] Malignant neoplasm of colon, unspecified part of colon (Primary Dx); Chronic anemia Social History Tobacco Use Types Packs/Day Years Used Date Smoking Tobacco: Every Day Cigarettes 0.5 10.1 Started: 11/10/2014 Smokeless Tobacco: Never Alcohol Use Standard Drinks/Week Comments Yes 0 (1 standard drink = 0.6 oz pur e alcohol) occasionally Sex and Gender Information Value Date Recorded Sex Assigned at Not on file Gender Identity Not on file Sexual Orientation Not on file documented as of this encounter Last Filed Vital Signs Vital Sign Reading Time Taken Comments Blood Pressure 116/73 11/10/2024 11:07 AM ADVERTISING STRATEGIST Pulse 76 11/10/2024 11:07 AM ADVERTISING STRATEGIST Temperature 36.4 ??C (97.5 ??F) 11/10/2024 11:[address] Respiratory Rate 15 11/10/2024 11:07 AM ADVERTISING STRATEGIST Oxygen Saturation 98% 11/10/2024 11:07 AM ADVERTISING STRATEGIST Inhaled Oxygen Concentration - - Weight 48.1 kg (106 lb) 11/10/2024 11:07 AM ADVERTISING STRATEGIST Height 157.5 cm (5' 2 ) 11/10/2024 11:07 AM ADVERTISING STRATEGIST Body Mass Index 19.39 11/10/2024 11:07 AM ADVERTISING STRATEGIST documented in this encounter Progress Notes * Ryan Garcia MD - 11/10/2024 12:33 PM CST Hematology-oncology consult Note Requesting Physician Aguilar Lang MD Primary Care Physician No primary care provider on file. Problem list There is no problem list on file for this patient. Previous TREATMENT ? Measurable Disease ? Reason for Visit Libby Maldonado is a 34 y.o. female who was referred for consultation for colon cancer. History of present illness This is a pleasant 34-year-old female who has been in good health presented initially to [facility] with abdominal pain and found to have diverticulitis with 2 small abscesses in July 2024. She was again admitted to the hospital on September 22 and found to have a 5 cm abscess with signs of infection and sepsis. Patient had CT-guided percutaneous catheter placement in the abscess. She was taken to the surgery on September 12, 2024 and sigmoidectomy was also performed. By this time patient had perforated sigmoid with Blevins cutaneous fistula. Pathology report from her surgery showed well-differentiated adenocarcinoma T4a disease with all 12 lymph node negative for malignancy.CT abdomen and pelvis done on September 19 showed 6.6 x 1.4 x 2.6 cm postsurgical fluid collection inthe left paracolic gutter suspicious for abscess. Labs also revealed significant anemia with hemoglobin of 6.9 on September 24, 2024. Patient was started on oral iron replacement. She came to the office for discussion regarding further management of her recently diagnosed colon cancer. She is slightly tired and fatigue but denies any bleeding including melena hematochezia. She has lost 20 to 30 pound weight in last 1 month duration. Denies any other complaint. Past Medical History Past Medical History: Diagnosis Date Asthma Malignant neoplasm Surgical History Past Surgical History: Procedure Laterality Date HX TUMOR REMOVAL 2023 Medications No current outpatient medications on file. No current facility-administered medications for this visit. Allergies No Known Allergies Immunizations: There is no immunization history on file for this patient. Family History Family History Problem Relation Name Age of Onset No Known Problems Father No Known Problems Mother No Known Problems Brother No Known Problems Brother No Known Problems Brother No Known Problems Child No Known Problems Child Social History Social History Tobacco Use Smoking status: Every Day Current packs/day: 0.50 Average packs/day: 0.5 packs/day for 10.0 years (5.0 ttl pk-yrs) Types: Cigarettes Start date: 11/10/2014 Smokeless tobacco: Never Substance Use Topics Alcohol use: Yes Comment: occasionally Review of Systems Constitutional: Patient did not mention fever; no night sweats; no anorexia; complain of tiredness and fatigue with 20 pound weight loss in 1 month duration. NEENT: Patient did not mention headache; no change in vision; no change in hearing; no sore throat;no dysphagia Respiratory: Patient did not mention shortness of breath; no pleuritic chest pain; no cough; no hemoptysis Cardiac: Patient did not mention cardiac-like chest pain; no palpitations; no orthopnea; no PND; noDOE Breasts: Patient did not mention tenderness; no masses GI: Patient did not mention abdominal pain; no nausea; no vomiting; no diarrhea; no hematochezia; no melena : Patient did not mention dysuria; no frequency; no hesitancy; no hematuria WIND OPERATIONS MANAGER: Musculosketetal: Patient did not mention bone pain; no arthralgia; no joint swelling; no myalgia; Skin: Patient did not mention pruritis; no rash; no petechiae; no ecchymoses Endocrine: Patient did not mention polydipsia; no polyuria; no unusual weight gain Neuro: Patient did not mention headache; no change in vision; no sensory changes; no muscle weakness; no confusion; no seizures Psych: Patient did not mention anxiety; no depression; Physical Exam Vitals: As per nursing note Constitutional: Well developed, well nourished, no acute distress, non-toxic appearance Teeth and gum. No signs of infection or swelling. Eyes: PERRL, conjunctiva normal HEENT: Atraumatic, external ears normal, nose normal, oropharynx moist, no pharyngeal exudates. no sinus tenderness Neck- normal range of motion, no tenderness, supple Respiratory: No respiratory distress, normal breath sounds, no rales, no wheezing Cardiovascular: Normal rate, normal rhythm, no murmurs, no gallops, no rubs GI: Soft, nondistended, normal bowel sounds, nontender, no splenomegaly, no hepatomegaly, no mass, no rebound, no guarding : No costovertebral angle tenderness Musculoskeletal: No edema, no tenderness, no deformities. Back- no tenderness Integument: Well hydrated, no rash, Digits and nails inspection normal Lymphatic: No lymphadenopathy noted Neurologic: Alert & oriented x 3, CN 2-12 normal, normal motor function, normal sensory function, no focal deficits noted Psychiatric: Speech and behavior appropriate ? labs No results found for this or any previous visit (from the past 24 hour(s)). Pathology ? Imaging & Other Studies Performance Status? Performance status 0. Assessment / Plan: ? T4a N0 M0 stage IIB well-differentiated adenocarcinoma of colon status post sigmoidectomy and surgery done on September 12, 2024. Tumor was 3.8 x 3 x 1.5 cm invade through the musculus propria into pericolonic tissue with perforation present. No perineural and lymphovascular invasion. Margins involved by the invasive carcinoma. All 12 lymph node negative for malignancy. Low probability of MSI high. I have discussed the imaging studies finding and pathology report with patient and the family in detail. Based on NCCN guidelines I would recommend adjuvant chemotherapy with FOLFOX regimen for 6 months duration. Given her young age we will order [employer] ration sequencing and will refer to genetic counseling. I will recommend PET scan for completion of staging. Patient will be referred to Dr. Lang for Mediport placement. Will refer her for chemotherapy teaching as well. I have discussed the side effects of chemotherapy personally as well. I will see her back with cycle #2. She will start chemotherapy hopefully neck 7 to 10 days. I have answered all the questions to patient and familysatisfaction. Anemia. I will repeat iron studies and B12 level today. I have recommended to restart taking oral iron once a day. Thank you very much for allowing me to participate in Libby Maldonado's evaluation and management. Please feel free to contact if I can be of any further assistance in your patient???s care requiring hematology or oncology evaluation. Sincerely, ? ? Ryan Garcia M.D. cell TOBACCO COUNSELING She was counseled to discontinue tobacco/nicotine use. Ryan Garcia MD ,11/10/2024 12:33 PM ? Total time spent 60 minutes, two third of the total time spent counseling patient [id number]. CC:?Aguilar Meadows MD RTISING STRATEGIST documented in this encounter Plan of Treatment Scheduled Orders Name Type Priority Associated Diagnoses Orde r Schedule PET TUMOR OR INFECTION IMG W CT SKB MDTH Imaging Routine Malignant neoplasm of colon, unspecified part of colon Expected: 11/11/2024, Expires: 11/10/2025 CBC WITH DIFFERENTIAL Lab Stat Malignant neoplasm of colon, unspecified part of colon Expected: 11/10/2024, Expires: 11/10/2025 COMPREHENSIVE METABOLIC PANEL Lab Stat Malignant neoplasm of colon, unspecified part of colon Expected: 11/10/2024, Expires: 11/10/2025 CEA Lab Routine Malignant neoplasm of colon, unspecified part of colon Expected: 11/10/2024, Expires: 11/10/2025 FERRITIN Lab Routine Chronic anemia Expected: 11/10/2024, Expires: 11/10/2025 IRON, TIBC, AND PERCENT SATURATION Lab Routine Chronic anemia Expected: 11/10/2024, Expires: 11/10/2025 VITAMIN B12 LEVEL Lab Routine Chronic anemia Expected: 11/10/2024, Expires: 11/10/2025 MISCELLANEOUS LAB TEST Lab Routine Malignant neoplasm of colon, unspecified part of colon Expected: 11/10/2024, Expires: 11/10/2025 Scheduled Referrals Name Type Priority Associated Diagnoses Orde r Schedule AMB REFERRAL TO CHEMO TEACHING Outpatient Referral Routine Malignant neoplasm of colon, unspecified part of colon Ordered: 11/10/2024 AMB REFERRAL TO GENERAL SURGERY Outpatient Referral Routine Malignant neoplasm of colon, unspecified part of colon Ordered: 11/10/2024 AMB REFERRAL TO GENETIC COUNSELING Outpatient Referral Routine Malignant neoplasm of colon, unspecified part of colon Ordered: 11/10/2024 documented as of this encounter Procedures Procedure Name Priority Date/Time Associated Diagnosis Comments [facility]G CANCERNEXT AND XG+ CANCERNEXT-EXPANDED Routine 11/26/2024 9:27 PM ADVERTISING STRATEGIST Malignant neoplasm of colon, unspecified part of colon [facility] XF Routine 11/18/2024 3:26 PM ADVERTISING STRATEGIST Malignant neoplasm of colon, unspecified part of colon [facility]T DNA AND RNA Routine 11/10/2024 11:56 AM ADVERTISING STRATEGIST Malignant neoplasm of colon, unspecified part of colon [facility] NORMAL BLOOD Routine 11/10/2024 11:56 AM ADVERTISING STRATEGIST Malignant neoplasm of colon, unspecified part of colon [facility] DNA AND RNA SOLID TUMOR Routine 11/10/2024 11:56 AM ADVERTISING STRATEGIST Malignant neoplasm of colon, unspecified part of colon documented in this encounter Results * [facility] XG CANCERNEXT AND XG+ CANCERNEXT-EXPANDED (11/26/2024 9:27 PM ADVERTISING STRATEGIST) [facility] Portal [email or web address] 11/26/2024 9:27 PM ADVERTISING STRATEGIST [facility] Comment:[facility] link Interpretation Report See Notes 11/26/2024 9:27 PM ADVERTISING STRATEGIST [facility] Comment: No pathogenic mutations, variants of unknown significance, or gross deletions or duplications were detected. Risk Estimate: low likelihood of variants in the genes analyzed contributing to this individual's clinical history. Genetic counseling is a recommended option for all individuals undergoing genetic testing. Genes Analyzed (36 total): APC, GAVIN, BARD1, BMPR1A, BRCA1, BRCA2, BRIP1, CDH1, CDK4, CDKN2A, CHEK2, DICER1, MLH1, MSH2, MSH6, MUTYH, NBN, NF1, NTHL1, PALB2, PMS2, PTEN, RAD51C, RAD51D, RECQL, SMAD4, SMARCA4, STK11 and TP53 (sequencing and deletion/duplication); AXIN2, HOXB13, MSH3, POLD1 and POLE (sequencing only); EPCAM and GREM1 (deletion/duplication only). Overall Interpretation NEGATIVE: No Clinically Significant Variants Detected 11/26/2024 9:27 PM ADVERTISING STRATEGIST [facility] Genes analyzed APC,GAVIN,BARD1, BMPR1A,BRIP1,C DH1,CDKN2A,JASON K2,DICER1,EPCA M,MLH1,MSH2,MS H6,MUTYH,NBN,P ALB2,PMS2,PTEN ,RAD51C,RAD51D ,SMAD4,STK11,T P53,CDK4,NF1,B RCA1,BRCA2,NTH L1,RECQL,SMARC A4,GREM1,MSH3, POLD1,POLE,AXI N2,HOXB13 11/26/2024 9:27 PM ADVERTISING STRATEGIST [facility] Blood specimen (specimen) 11/26/2024 9:31 PM ADVERTISING STRATEGIST Ryan Garcia MD MOLECULAR ORDERABLES [facility] [address], [address] [place] [address], [facility] [address], [address] [place] [address] * [facility] XF (11/18/2024 3:26 PM ADVERTISING STRATEGIST) Reason for Study To identify mutations relevant to patient's cancer. 11/18/2024 3:26 PM ADVERTISING STRATEGIST [facility] Genetic Diseases Assessed Cancer 11/18/2024 3:26 PM ADVERTISING STRATEGIST [facility] Description of Ranges of DNA Sequences Examined 105 gene liquid biopsy 11/18/2024 3:26 PM ADVERTISING STRATEGIST [facility] Overall Interpretation inconclusive 11/18/2024 3:26 PM ADVERTISING STRATEGIST [facility] [email or web address] [id number] 11/18/2024 3:26 PM ADVERTISING STRATEGIST [facility] Comment:[facility] link Low Coverage Regions ERRFI1, JAK1, MSH3, TERT 11/18/2024 3:26 PM ADVERTISING STRATEGIST [facility] Blood Tumor Mutational Gilead Note bTMB cannot be calculated due to insufficient circulating tumor DNA. 11/18/2024 3:26 PM ADVERTISING STRATEGIST [facility] Genomic Variant Note No reportable pathogenic variants were found. 11/18/2024 3:26 PM ADVERTISING STRATEGIST [facility] Microsatellite Instability Note MSI-High not detected 11/18/2024 3:26 PM ADVERTISING STRATEGIST [facility] Treatment Implications Note No reportable treatment options found. 11/18/2024 3:26 PM ADVERTISING STRATEGIST [facility] Blood specimen (specimen) 11/12/2024 9:32 PM ADVERTISING STRATEGIST Narrative This result has genomic variants that were not included in this document. Ryan Garcia MD MOLECULAR ORDERABLES Performing Organization Address City/[facility]/ZIP Co de Phone Number [facility] [address], [address] [place] [address], [facility] [address], [address] [place] [phone] * [facility] XT NORMAL BLOOD (11/10/2024 11:56 AM ADVERTISING STRATEGIST) [facility] 11/10/2024 11:01 PM ADVERTISING STRATEGIST [facility] Comment:See NGS Report for R esults. Blood specimen (specimen) 11/10/2024 11:56 AM ADVERTISING STRATEGIST 11/10/2024 11:57 AM ADVERTISING STRATEGIST Ryan Garcia MD MOLECULAR ORDERABLES Performing Organization Address City/[facility]/ZIP Co de Phone Number [facility] [address] [facility], [address] [place] [id number], [facility] [address], [address] [place] [address] * [facility] DNA AND RNA SOLID TUMOR (11/10/2024 11:56 AM ADVERTISING STRATEGIST) Reason for Study To identify somatic and germline mutations relevant to patient's cancer. 11/24/2024 6:22 PM ADVERTISING STRATEGIST [facility] Genetic Diseases Assessed Cancer 11/24/2024 6:22 PM ADVERTISING STRATEGIST [facility] Description of Ranges of DNA Sequences Examined 648 gene panel 11/24/2024 6:22 PM ADVERTISING STRATEGIST [facility] Overall Interpretation positive 11/24/2024 6:22 PM ADVERTISING STRATEGIST [facility] MSI Stable 11/24/2024 6:22 PM ADVERTISING STRATEGIST [facility] TMB 1.6 m/MB 11/24/2024 6:22 PM ADVERTISING STRATEGIST [facility] [email or web address] 11/24/2024 6:22 PM ADVERTISING STRATEGIST [facility] Comment:[facility] link Pertinent Negatives KRAS, BRAF, NRAS 11/24/2024 6:22 PM ADVERTISING STRATEGIST [facility] Low Coverage Regions APOB, CUL4A, FGF3, FLT3, IFNGR2, KDM5D, KMT2B, MALT1, MAP2K4, MYCL, NOTCH1, PTPN11, TGFBR1, ZNRF3 11/24/2024 6:22 PM ADVERTISING STRATEGIST [facility] Therapy Count 1 11/24/2024 6:22 PM ADVERTISING STRATEGIST [facility]us: Potential Therapy 1 Gene: N/A Variant: Wild type: KRAS, NRAS Match Type: wildType Match Type Description: Wild type: KRAS, NRAS Agent: Cetuximab or Panitumumab Drug Class: Anti-EGFR MAb Tissue: Colorectal Cancer Association: Response Evidence Status: Consensus Evidence ID: NCCN NCCN Associated Evidence: Consensus, Colorectal Cancer MSK Associated Evidence: MSK OncoKB, Level 1 Label: FDA On Label FDA Approved?: Yes On label?: Yes 11/24/2024 6:22 PM ADVERTISING STRATEGIST [facility] xR Result 1 NEGATIVE Negative - This report is being issued to report the results of gene rearrangement and altered splicing analysis from RNA sequencing. No gene rearrangements nor reportable altered splicing events were identified from RNA sequencing. 11/24/2024 6:22 PM ADVERTISING STRATEGIST [facility] Germline Variant Note No potential germline variants were found in the limited set of genes on which we report. 11/24/2024 6:22 PM ADVERTISING STRATEGIST [facility] Tissue specimen (specimen) 11/10/2024 11:56 AM ADVERTISING STRATEGIST 11/12/2024 12:40 PM ADVERTISING STRATEGIST Narrative This result has genomic variants that were not included in this document. Ryan Garcia MD MOLECULAR ORDERABLES [facility] [address] [facility], [address] [place], [place] [id number] [place] [address] [facility] [address] [facility] [address] [facility], [address] [place] [address] documented in this encounter Visit Diagnoses Diagnosis Malignant neoplasm of colon, unspecified part of colon- Primary Chronic anemia Anemia, unspecified documented in this encounter
--- OUTSIDE RECORDS SUMMARY | 2024-12-03 23:00 | XMS_ITS | CONTINUITY OF CARE DOCUMENT ---
Author Name scooter helms Address Unknown Organization [facility] Address [address] [place] [address] Phone [phone] Care Team Providers Care Revolving Inventory Clerk Name Role Phone Casa Zamora MD Unavailable [phone] Casa Zamora MD Unavailable [phone] INSURANCE PROVIDERS Payer name Policy type / Coverage type [place] [employer] party ID [place] [employer] Medicaid [id number]
--- OUTSIDE RECORDS SUMMARY | 2024-12-03 23:00 | XMS_ITS | Clinical Summary ---
Author Organization [facility] Olga allen Fernando Address [address] [place] [address] Care Team Providers Care Pastry Decorator Name Role Phone Unavailable Primary Care Provider Unavailabl e Allergies No known active allergies Medications No known medications Active Problems No known active problems Encounters Date Type Department Care Team Description 11/11/2024 External Device Data ST[facility] ABSTRACTION Provider, Abstract 11/11/2024 Orders Only [facility] - [place] [address] [place] [address] Ryan Garcia MD 11/10/2024 10:30 AM IGNITER ASSEMBLER Office Visit [facility] [address] [place] [address] Ryan Garcia MD Malignant neoplasm of colon, unspecified part of colon (Primary Dx); Chronic anemia from Last 3 Months Family History Medical History Relation Name Comments No Known Problems Brother 1 No Known Problems Brother 2 No Known Problems Brother 3 No Known Problems Child 1 No Known Problems Child 2 No Known Problems Father No Known Problems Mother Relation Name Status Comments Brother 1 Alive Brother 2 Alive Brother 3 Alive Child 1 Alive Child 2 Alive Father Mother Alive Social History Tobacco Use Types Packs/Day Years Used Date Smoking Tobacco: Every Day Cigarettes 0.5 10.1 Started: 11/10/2014 Smokeless Tobacco: Never Alcohol Use Standard Drinks/Week Comments Yes 0 (1 standard drink = 0.6 oz pur e alcohol) occasionally Sex and Gender Information Value Date Recorded Sex Assigned at Not on file Gender Identity Not on file Sexual Orientation Not on file Last Filed Vital Signs Vital Sign Reading Time Taken Comments Blood Pressure 116/73 11/10/2024 11:07 AM IGNITER ASSEMBLER Pulse 76 11/10/2024 11:07 AM IGNITER ASSEMBLER Temperature 36.4 ??C (97.5 ??F) 11/10/2024 11:[address] Respiratory Rate 15 11/10/2024 11:07 AM IGNITER ASSEMBLER Oxygen Saturation 98% 11/10/2024 11:07 AM IGNITER ASSEMBLER Inhaled Oxygen Concentration - - Weight 48.1 kg (106 lb) 11/10/2024 11:07 AM IGNITER ASSEMBLER Height 157.5 cm (5' 2 ) 11/10/2024 11:07 AM IGNITER ASSEMBLER Body Mass Index 19.39 11/10/2024 11:07 AM IGNITER ASSEMBLER Plan of Treatment Health Maintenance Due Date Last Done Comments PNEUMOCOCCAL VACCINE 0-64 YE ARS (1 of 2 - PCV) 1997 DTAP/TDAP/TD VACCINES (1 - Tdap) 2010 HEPATITIS B VACCINES (1 of 3 - 19+ 3-dose series) 2010 CERVICAL CANCER SCREENING 2021 INFLUENZA VACCINE (#1) 2024 HPV VACCINES Aged Out No longer eligi ble based on patient's age to complete this topic Procedures Procedure Name Priority Date/Time Associated Diagnosis Comments [facility] CANCERNEXT AND XG+ CANCERNEXT-EXPANDED Routine 11/26/2024 9:27 PM IGNITER ASSEMBLER Malignant neoplasm of colon, unspecified part of colon [facility] XF Routine 11/18/2024 3:26 PM IGNITER ASSEMBLER Malignant neoplasm of colon, unspecified part of colon COMPREHENSIVE METABOLIC PANEL Routine 11/10/2024 1:22 PM IGNITER ASSEMBLER [facility]T DNA AND RNA Routine 11/10/2024 11:56 AM IGNITER ASSEMBLER Malignant neoplasm of colon, unspecified part of colon [facility]T NORMAL BLOOD Routine 11:56 AM IGNITER ASSEMBLER Malignant neoplasm of colon, unspecified part of colon [facility] DNA AND RNA SOLID TUMOR Routine 11/10/2024 11:56 AM IGNITER ASSEMBLER Malignant neoplasm of colon, unspecified part of colon from Last 3 Months Results * [facility] XG CANCERNEXT AND XG+ CANCERNEXT-EXPANDED (11/26/2024 9:27 PM IGNITER ASSEMBLER) Pathologist [facility] [email or web address] [id number] 11/26/2024 9:27 PM IGNITER ASSEMBLER [facility] Comment:[facility] link Interpretation Report See Notes 11/26/2024 9:27 PM IGNITER ASSEMBLER [facility] Comment: No pathogenic mutations, variants [...] Clinically Significant Variants Detected 11/26/2024 9:27 PM IGNITER ASSEMBLER [facility] Genes analyzed APC,GAVIN,BARD1, BMPR1A,BRIP1,C DH1,CDKN2A,JASON K2,DICER1,EPCA M,MLH1,MSH2,MS H6,MUTYH,NBN,P ALB2,PMS2,PTEN ,RAD51C,RAD51D ,SMAD4,STK11,T P53,CDK4,NF1,B RCA1,BRCA2,NTH L1,RECQL,SMARC A4,GREM1,MSH3, POLD1,POLE,AXI N2,HOXB13 11/26/2024 9:27 PM IGNITER ASSEMBLER [facility] Blood specimen (specimen) 11/26/2024 9:31 PM IGNITER ASSEMBLER Ryan Garcia MD MOLECULAR ORDERABLES [facility] [address] [place] [address], [facility] [address] [place] [address] * [facility] XF (11/18/2024 3:26 PM IGNITER ASSEMBLER) Reason for Study To identify mutations relevant to patient's cancer. 11/18/2024 3:26 PM IGNITER ASSEMBLER [facility] Genetic Diseases Assessed Cancer 11/18/2024 3:26 PM IGNITER ASSEMBLER [facility] Description of Ranges of DNA Sequences Examined 105 gene liquid biopsy 11/18/2024 3:26 PM IGNITER ASSEMBLER [facility] Overall Interpretation inconclusive 11/18/2024 3:26 PM IGNITER ASSEMBLER [facility] [email or web address] [id number] 11/18/2024 3:26 PM IGNITER ASSEMBLER [facility] Comment:[facility] link Low Coverage [facility] ERRFI1, JAK1, MSH3, TERT 11/18/2024 3:26 PM IGNITER ASSEMBLER [facility] Blood Tumor Mutational [place] Note bTMB cannot be calculated due to insufficient circulating tumor DNA. 11/18/2024 3:26 PM IGNITER ASSEMBLER [facility] Genomic Variant Note No reportable pathogenic variants were found. 11/18/2024 3:26 PM IGNITER ASSEMBLER [facility] Microsatellite Instability Note MSI-High not detected 11/18/2024 3:26 PM IGNITER ASSEMBLER [facility] Treatment Implications Note No reportable treatment options found. 11/18/2024 3:26 PM IGNITER ASSEMBLER [facility] Blood specimen (specimen) 11/12/2024 9:32 PM IGNITER ASSEMBLER Narrative This result has genomic variants that were not included in this document. Ryan Garcia MD MOLECULAR ORDERABLES [facility] [address] [place] [address], [facility] [address] [facility], [address] [place] [address] * COMPREHENSIVE METABOLIC PANEL (11/10/2024 1:22 PM IGNITER ASSEMBLER) Blood Ryan Garcia MD CHEMISTRY ORDERABLES * [facility] NORMAL BLOOD (11/10/2024 11:56 AM IGNITER ASSEMBLER) Pathologist [facility] 11/10/2024 11:01 PM IGNITER ASSEMBLER [facility] Comment:See NGS Report for R esults. Blood specimen (specimen) 11/10/2024 11:56 AM IGNITER ASSEMBLER 11/10/2024 11:57 AM IGNITER ASSEMBLER Ryan Garcia MD MOLECULAR ORDERABLES Performing Organization Address City/[facility]/ZIP Co de Phone Number [facility] [address] [facility], [address] [place] [address], [facility] [address] [facility], [address] [place] [address] * [facility] XT DNA AND RNA SOLID TUMOR (11/10/2024 11:56 AM IGNITER ASSEMBLER) Pathologist [facility] Reason for Study To identify somatic and germline mutations relevant to patient's cancer. 11/24/2024 6:22 PM IGNITER ASSEMBLER [facility] Genetic Diseases Assessed Cancer 11/24/2024 6:22 PM IGNITER ASSEMBLER [facility] Description of Ranges of DNA Sequences Examined 648 gene panel 11/24/2024 6:22 PM IGNITER ASSEMBLER [facility] Overall Interpretation positive 11/24/2024 6:22 PM IGNITER ASSEMBLER [facility] MSI Stable 11/24/2024 6:22 PM IGNITER ASSEMBLER [facility] TMB 1.6 m/MB 11/24/2024 6:22 PM IGNITER ASSEMBLER [facility] [email or web address] [email or web address] 11/24/2024 6:22 PM IGNITER ASSEMBLER [facility] Comment:[facility] link Pertinent Negatives KRAS, BRAF, NRAS 11/24/2024 6:22 PM IGNITER ASSEMBLER [facility] Low Coverage [employer] APOB, CUL4A, FGF3, FLT3, IFNGR2, KDM5D, KMT2B, MALT1, MAP2K4, MYCL, NOTCH1, PTPN11, TGFBR1, ZNRF3 11/24/2024 6:22 PM IGNITER ASSEMBLER [facility] Therapy Count 1 11/24/2024 6:22 PM IGNITER ASSEMBLER [facility]: Potential Therapy 1 Gene: [...] Yes On label?: Yes 11/24/2024 6:22 PM IGNITER ASSEMBLER [facility] xR Result 1 NEGATIVE Negative - This report is being issued to report the results of gene rearrangement and altered splicing analysis from RNA sequencing. No gene rearrangements nor reportable altered splicing events were identified from RNA sequencing. 11/24/2024 6:22 PM IGNITER ASSEMBLER [facility] Germline Variant Note No potential germline variants were found in the limited set of genes on which we report. 11/24/2024 6:22 PM IGNITER ASSEMBLER [facility] Tissue specimen (specimen) 11/10/2024 11:56 AM IGNITER ASSEMBLER 11/12/2024 12:40 PM IGNITER ASSEMBLER Narrative This result has genomic variants that were not included in this document. Ryan Garcia MD MOLECULAR ORDERABLES [facility] [address] [facility], [address] [place] [address], [facility] [address] [place] [address] from Last 3 Months
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
--- OUTSIDE RECORDS SUMMARY | 2024-12-03 23:00 | XMS_ITS | Encounter Summary ---
Author Organization [facility] Address [address] [place] [address] Care Team Providers Care Committee Member Name Role Phone Unavailable Primary Care Provider Unavailabl e Encounter Details Date Type Department Care Team (Late st Contact Info) Description 11/11/2024 External Device Data STL ABSTRACTION Provider, Abstract NO ADDRESS ON FILE Social History Tobacco Use Types Packs/Day Years [...] on file documented as of this encounter Plan of Treatment Not on file documented as of this encounter Visit Diagnoses Not on filedocumented in this encounter
--- OUTSIDE RECORDS SUMMARY | 2024-12-03 23:00 | XMS_ITS | Data Portability ---
Author Organization [place] [facility] [employer], Main Office Address [address] [place] [address] Assessment Encounter Date Assessment Date Assessment LastModified by Organization Details LastModified Time 02/19/2023 02/19/2023 32-year-old patient presents today for right hand pain after punching a wall 2 weeks ago. She presented to the ER about 1 week after her injury and obtain x-rays. They showed no fracture. She was placed in a splint and sling and told to follow-up with us. Since her injury she has been using ibuprofen and icing. She has injured this hand in the past by punching a wall resulting in a boxer's fracture. she states she had fully recovered from the injury and was able to perform full range of motion with her hand. She is right-handed. 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 Review of systems per patient questionnaire imaging: X-rays reviewed show no bony abnormality, no fracture. Healed boxer's fracture present in her 5th metacarpal. Physical exam splint was removed. bruising present over 4th metacarpal. Pain with palpitation over 4th and 5th metacarpals. Able to make a fist and perform range of motion. Normal cascade. Sensation intact throughout. Since imaging shows no fracture she most likely has a bone contusion. We will provide her with a fitted ulnar gutter removable splint that she can wear for comfort as needed. She no longer needs the sling. She can continue taking ibuprofen and icing. We can see her back in 3-4 weeks if he feels it is necessary, if not she can cancel the appointment. She is in agreement with this plan. [email or web address] Not available 02/19/2023 11:28:13 Plan of Treatment Reminders Order Date Submit Date Provider Last Modified By Organization Details Last Modified Time Details Appointments None record ed. Lab None record ed. Referral None record ed. Procedures None record ed. Surgeries None record ed. Imaging None record ed. Medication Orders None record ed. Patient TargetsNo targets recorded. Patient InstructionsNo instructions recorded. Reason for Referral None Reported. Results Created Date Observation Date Name Description Value Unit Range Abnormal Flag Note LastModifiedBy Organization Detail LastModifiedTime 02/17/2002/15/2023 XR, hand No observ ation record ed. [email or web address] Not Available 2022 14:45:31 Result Notes None recorded. Procedures Surgical History None recorded. Imaging Results Imaging Date Name Status LastModified by Organiz ation Details LastModified Time 02/15/2023 XR, hand completed [email or web address] Information no t available 02/16/2023 14:45:31 Procedure Notes None recorded. Medical Equipment None Reported. Allergies No known drug allergies Medications Name Sig Start Date Stop Date Status Note LastModified by Organization Details LastModified Time tizanidine 4 mg tablet TAKE 1/2 TO 1 TABLET BY MOUTH THREE TIMES DAILY NEEDED FOR MUSCLE PAIN OR SPASM 02/19 completed Not Available Not Available Not Available ibuprofen active Not Available Not Ananya ilable Not Available Vitals Date Recorded Body height Body mass index (BMI) Body weight Provider Name and Address Organization Details Last Updated DateTime 02/19/2023 157.48 cm 21.9 kg/m2 01243.08 g Vida Curran [facility] 02/19/2023 09:55:31 Social History Question Answer Notes LastModified by Organizat ion Details LastModified Time Tobacco Smoking Status Current Every Day Smoker Vida Curran ATC [facility], [place] 02/19/2023 09:56:31 What Is Your Level Of Alcohol Consumption? Occasional Information not available 02/19/2023 How Much Tobacco Do You Smoke? 1 PPD Information not available 02/19/2023 Sex: Unknown Functional Status None recorded. Mental Status None recorded. Family History Nothing Reported. Medical History No medical history recorded. Gynecological HistoryNo gynecological history recorded. Obstetrics History GPAL:G 0 P 0 0 0 0 Past Encounters Encounter ID Performer Location Encounter Start Date Encounter Closed Date Diagnosis/Indication Diagnosis SNOMED-CT Code Diagnosis ICD10 Code Diagnosis Note [id number] Carli Gonzalez NP [facility] [address] [address] 02/19/2023 09:37:49 02/19/2023 10:31:55 Health Concerns Section Related Observation LastModified by Organization Detai ls LastModified Time None Recorded Concern Status LastModified by Organization Details LastModified Time None Recorded Advance Directives Directive None Recorded Payers Encounter Date Sequence Insurance Name Policy Number Policy Mayo Covered Member ID Mayo Member ID Guarantor Name 02/19/2023 1 [facility] (MEDICAID HMO) [id number] Libby Maldonado [id number] Libby Maldonado OBGyn Episode No OBEpisode recorded.
--- OUTSIDE RECORDS SUMMARY | 2024-12-03 23:00 | XMS_ITS | Encounter Summary ---
Author Organization [facility] AMISHA Ryder [facility] Address [address] [place] [address] Care Team Providers Care Caser Up Name Role Phone Unavailable Primary Care Provider Unavailabl e Encounter Details Date Type Department Care Team (Late st Contact Info) Description 11/11/2024 Orders Only [facility] Oncology and Hematology - [place] [address] [facility] [address] [facility] [address] [place] [address] Ryan Garcia MD [address] [place] [address] Social History Tobacco Use Types Packs/Day Years [...] on file documented as of this encounter Procedures Procedure Name Priority Date/Time Associated Diagnosis Comments COMPREHENSIVE METABOLIC PANEL Routine 11/10/2024 1:22 PM 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
--- OUTSIDE RECORDS SUMMARY | 2024-12-03 23:00 | XMS_ITS | Clinical Summary ---
Author Organization [facility] Address [address] [place] [address] Care Team Providers Care Egg Sorter Name Role Phone [facility] Primary Care Provi frankie Source Comments [facility] Affiliates and Associated Physician Practices is amultiple site organization consisting of ambulatory clinics and hospital sitesin [place], [place], [place] and [place]. This disclosure is being madepursuant to the Care Everywhere program and may not contain all information available regarding this patient. Last updated 18.[facility] Allergies No known active allergies Medications Be aware that medications may not be up to date on this document. Always verify current medications with the patient. 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 9 Family History Medical History Relation Name Comments Asthma Father CVA Neg Hx Cancer - Breast Neg Hx Cancer - Other Neg Hx Cancer - Skin, Melanoma Neg Hx Cancer - Skin, Non Melanoma Neg Hx Eczema Neg Hx Hemophilia Neg Hx Psoriasis Neg Hx Relation Name Status Comments Father Social History Tobacco Use Types Packs/Day Years [...] Mass Index 18.84 07/25/2016 4:20 PM CDT Plan of Treatment Health Maintenance Due Date Last Done Comments PAP SMEAR 1991 PNEUMOCOCCAL VACCINE (1 of 2 - PCV) 1997 HIV SCREENING 2006 HEPATITIS C SCREENING 11/02/2009 DTAP/TDAP/TD VACCINES (1 - Tdap) 2010 HEPATITIS B VACCINE (1 of 3 - 19+ 3-dose series) 2010 COVID-19 VACCINE (1 - 2023-2 5 season) 2024 INFLUENZA VACCINE (#1) 2024 DEPRESSION SCREENING 11/26/2024 ZOSTER VACCINE (1 of 2) 2041 HIB VACCINE Aged Out No longer eligi ble based on patient's age to complete this topic HPV VACCINE Aged Out No longer eligi ble based on patient's age to complete this topic MENINGOCOCCAL VACCINE Aged Out No joann samaria eligible based on patient's age to complete this topic Care Teams Egg Sorter Relationship Specialty Start Date End Date [facility] [address] [place] [address] PCP - General 04/26/19
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
--- OUTSIDE RECORDS SUMMARY | 2024-12-03 23:00 | XMS_ITS | Data Portability ---
Author Organization [facility] RUPERTBishop Address [address] [place] [address] Assessment No assessment recorded. Plan of Treatment Reminders Order Date Submit Date Provider Last Modified By Organization Details Last Modified Time Details Appointments None recorded. Lab pap, IG + HPV, cervical - please use Z11.51 in addition to code above for HPV testing. 2016 017 URIEL Lester, 2022 Hali Camacho, [address], [address], 7 20:08:57 urinalysi s, dipstick 2016 017 [email or web address] In-Office Order, Internal Use Only DO Not Attach Compendium DO Not Attach Compendium, Do Not Delete/merge, [id number] 7 12:12:02 test, urine 2016 017 [email or web address] In-Office Order, Internal Use Only DO Not Attach Compendium DO Not Attach Compendium, Do Not Delete/merge, [id number] 7 12:12:02 bacterial vaginosis + vaginitis panel, vaginal - Z11.3 2016 017 URIEL LESTER, [address], [address], [place], [address], 7 14:12:01 HSV (1+2) DNA, qual, PCR, unspecifi ed specimen - Z11.3 2016 017 URIEL LESTER, [address], [address], [place], [address], 7 14:12:03 culture, vaginal/r ectal, streptoco ccus group B - Z11.3 2016 [facility], [address] [place] [address], [address], [place], [address], 7 14:12:05 RPR (rapid plasma reagin), serum 2016 [facility], [address] [place] [address], [address], [place], [address], 7 16:10:38 hsv-2 (herpes simplex virus type 2) igg Ab, serum 2016 [facility], [address] [place] [address], [address], [place], [address], 7 16:10:38 hepatitis panel (A+B+C), acute, serum 2016 017 [facility], [address] [place] [address], [address], [place], [address], 7 16:10:36 hepatitis B surface Ab, qualitati ve, serum 2016 [facility], [address] [place] [address], [address], [place], [address], 7 16:10:37 HIV 1+2 AB + HIV 1 p24 Ag, qualitati ve immunoass ay, serum 2016 017 [facility], [address] Hali Camacho, [address] [address], [place], [address], 7 16:10:38 lipid panel w/ direct LDL, serum 2017 018 [facility] (Lab), [address], [place], [address], 8 20:03:46 CMP, serum or plasma 2017 018 [facility] (Lab), [address], [place], [address], 8 20:03:46 HbA1c (hemoglob in A1c), blood 2017 018 [facility] (Lab), [address], [place], [address], 8 05:09:24 TSH, serum, reflex free T4 2017 018 [facility] (Lab), [address], [place], [address], 8 20:04:11 CBC w/ auto diff 2017 018 [facility] (Lab), [address], [place], [address], 8 19:44:38 test, urine 2017 018 [email or web address] In-Office Order, Internal Use Only DO Not Attach Compendium DO Not Attach Compendium, Do Not Delete/merge, [id number] 8 10:34:55 urinalysi s, dipstick 2017 018 [email or web address] In-Office Order, Internal Use Only DO Not Attach Compendium DO Not Attach Compendium, Do Not Delete/merge, [id number] 8 10:34:56 SARS CoV 2 RNA (COVID-19 ), QL, 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, [address], [place], [address], 4 23:34:22 Procedures removal, intrauter ine device (PROC) 2016 017 [email or web address] Not available 7 12:12:02 Surgeries None recorded. Imaging None recorded. Medication Orders multivita min tablet 2016 017 [facility] [facility], [address], [place], [id number], 8 15:02:50 Calcium with Vitamin D 600 mg-10 mcg (400 unit) tablet 2016 017 [address] [address], [address], [place], [id number], 8 15:02:00 Xulane 150 mcg-35 mcg/24 hr transderm al patch [address] [facility]44175, [address], [place], [id number], 8 15:02:57 dicyclomi ne 20 mg tablet 2023 024 [facility], [address], [place], [id number], 4 12:18:39 Metamucil 3.4 gram/5.4 gram oral powder 2023 024 [facility], [address], [place], [id number], 4 12:18:34 metronida zole 500 mg tablet 2023 024 [facility] #73567, [address], [place], [id number], 12:18:35 acetamino phen 500 mg tablet 2023 [facility] #[id number] [place], [place], [id number], 12:18:36 dicyclomi ne 20 mg tablet 2023 [facility] #[id number] [place], [place], [id number], 17:18:36 Patient TargetsNo targets recorded. Patient Instructions Encounter Date Encounter Id Patient Instructions Last Modified By Organization Details Last Modified Time 04/09/2017 [id number] IUD removal: car e instructions [email or web address] Not available 04/09/2017 12:12:02 06/09/2020 [id number] Reviewed the following recommendations: -Stay home and separate from others as much as possible. -Monitor your symptoms and seek medical attention for trouble breathing, persistent chest pain, confusion, or bluish lips or face. -Wear a mask if you must be around other people. -Wash your hands often for 20 seconds with soap and water and clean high-touch surfaces daily -You may discontinue home isolation if your symptoms are improving, it has been 10 days since symptoms started, and you have been fever free for at least 3 days. 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 Referring Physician: Shane Jackson, Internal Medicine, Encounter Date: 06/13/2024 Results Created Date Observation Date Name Description Value Unit Range Abnormal Flag Note LastModifiedBy Organization Detail LastModifiedTime 04/09/2017 pregn damian test, urine HCG negati ve Not Available In-Office Order Internal Use Only DO Not Attach Compendium DO Not Attach Compendium, Do Not Delete/merge, 04/09/2017 11:15:14 04/09/2017 urina lysis , dipst ick Leukocytes Trace Not Available In-Offi ce Order Internal Use Only DO Not Attach Compendium DO Not Attach Compendium, Do Not Delete/merge, 04/09/2017 11:14:28 04/09/2017 urina lysis , dipst ick Nitrite negati ve Not Available In-Office Order Internal Use Only DO Not Attach Compendium DO Not Attach Compendium, Do Not Delete/merge, 04/09/2017 11:14:28 04/09/2017 urina lysis , dipst ick Urobilinogen .2 Not Available In-Of fice Order Internal Use Only DO Not Attach Compendium DO Not Attach Compendium, Do Not Delete/merge, 04/09/2017 11:14:28 04/09/2017 urina lysis , dipst ick Protein Negati ve Not Available In-Office Order Internal Use Only DO Not Attach Compendium DO Not Attach Compendium, Do Not Delete/merge, 04/09/2017 11:14:28 04/09/2017 urina lysis , dipst ick pH 5.5 Not Available In-Office Order Internal Use Only DO Not Attach Compendium DO Not Attach Compendium, Do Not Delete/merge, 04/09/2017 11:14:28 04/09/2017 urina lysis , dipst ick Blood Large Not Available In-Office Order Internal Use Only DO Not Attach Compendium DO Not Attach Compendium, Do Not Delete/merge, 04/09/2017 11:14:28 04/09/2017 urina lysis , dipst ick Specific [place] 1.025 Not Available In-Off ice Order Internal Use Only DO Not Attach Compendium DO Not Attach Compendium, Do Not Delete/merge, 04/09/2017 11:14:28 04/09/2017 urina lysis , dipst ick Ketone Negati ve Not Available In-Office Order Internal Use Only DO Not Attach Compendium DO Not Attach Compendium, Do Not Delete/merge, 04/09/2017 11:14:28 04/09/2017 urina lysis , dipst ick Bilirubin Negati ve Not Available In-Office Order Internal Use Only DO Not Attach Compendium DO Not Attach Compendium, Do Not Delete/merge, 04/09/2017 11:14:28 04/09/2017 urina lysis , dipst ick Glucose Negati ve Not Available In-Office Order Internal Use Only DO Not Attach Compendium DO Not Attach Compendium, Do Not Delete/merge, 04/09/2017 11:14:28 04/09/2017 urina lysis , dipst ick Appearance Clear Not Available In-Offi ce Order Internal Use Only DO Not Attach Compendium DO Not Attach Compendium, Do Not Delete/merge, 04/09/2017 11:14:28 04/09/2017 urina lysis , dipst ick Color Yellow Not Available In-Office Order Internal Use Only DO Not Attach Compendium DO Not Attach Compendium, Do Not Delete/merge, 04/09/2017 11:14:28 04/09/20 17 04/10/2017 hepat itis panel (A+B+ C), acute , serum hep A Ab, IgM NEGATI VE negati ve Not Available [facility] ([facility]) [address] [place], [address], 04/10/2017 08:29:59 04/09/20 17 04/10/2017 hepat itis panel (A+B+ C), acute , serum HBsAg screen NEGATI VE negati ve Not Available [facility] ([facility]) [address] [place], [address], 04/10/2017 08:29:59 04/09/20 17 04/10/2017 hepat itis panel (A+B+ C), acute , serum hep B core Ab, IgM NEGATI VE negati ve Not Available [facility] ([facility]) [address] [place], [address], 04/10/2017 08:29:59 04/09/20 17 04/10/2017 hepat itis panel (A+B+ C), acute , serum hep C virus Ab <0.1 S/co_ ratio 0.0-0. 9 NEGAT ALIX: < 0.8 INDET ERMIN ATE: 0.8 - 0.9 POSIT ALIX: > 0.9 [facility] RECOM MENDS THAT A POSIT ALIX HCV ANTIB CHARY RESUL T BE FOLLO WED UP WITH A HCV NUCLE IC ACID AMPLI FICAT ION TEST (5507 13). Not Available [facility] ([facility]) [address] [facility], [place], [address], 04/10/2017 08:29:59 04/09/20 17 04/10/2017 hepat itis B surfa ce Ab, quali tativ e, serum hep B surface Ab, qual NON REACTI VE NON REACT ALIX: INCON SISTE NT WITH IMMUN ITY, LESS THAN 10 MIU/M L REACT ALIX: CONSI STENT WITH IMMUN ITY, GREAT ER THAN 9.9 MIU/M L Not Available [facility] ([facility]) [address] [facility], [place], [address], 04/10/2017 08:29:59 04/09/20 17 04/10/2017 RPR (rapi d plasm a reagi n), serum RPR NON REACTI VE non reacti ve Not Available [facility] ([facility]) [address] [place], [address], 04/10/2017 08:29:59 04/09/2004/10/2017 HIV 1+2 AB + HIV 1 p24 Ag, quali tativ e immun oassa y, serum HIV screen 4TH generation wrfx NON REACTI VE non reacti ve Not Available [facility] ([facility]) [address] [place], [address], 04/10/2017 08:29:59 04/09/20 17 04/10/2017 hsv-2 (herp es simpl ex virus type 2) igg Ab, serum hsv 2 IgG, type spec <0.91 index 0.00-0 .90 NEGAT ALIX <0.91 EQUIV OCAL 0.91 - 1.09 POSIT ALIX >1.09 NOTE: NEGAT ALIX INDIC ATES NO ANTIB ODIES DETEC OLIVA TO HSV-2 . EQUIV OCAL MAY SUGGE ST EARLY INFEC TION. IF CLINI GEOVANI APPRO PRIAT E, RETES T AT LATER DATE. POSIT ALIX INDIC ATES ANTIB ODIES DETEC OLIVA TO HSV-2 . Not Available [facility] ([facility]) [address] [facility], [place], [address], 04/10/2017 08:30:00 04/09/20 17 04/11/2017 pap, IG + HPV, cervi porter diagnosis: COMMEN T NEGAT ALIX FOR INTRA EPITH ELIAL LESIO N AND MALIG YOVANNY . REACT ALIX CELLU LAR VELASQUEZ ES AND/O R REPAI R ARE PRESE NT. PREDO JAY CE OF COCCO BACIL LI CONSI STENT WITH SHIFT IN VAGIN AL CHRISSIE IS PRESE NT. Not Available [facility] ([facility]) [address] [facility], [place], [address], 04/11/2017 20:08:57 04/09/20 17 04/11/2017 pap, IG + HPV, cervi porter specimen adequacy: COMMEN T SATIS FACTO RY FOR EVALU ATION . ENDOC ERVIC AL AND/O R SQUAM OUS METAP LASTI C CELLS (ENDO CERVI PORTER COMPO NENT) ARE PRESE NT. Not Available [facility] ([facility]) [address] [facility], [place], [address], 04/11/2017 20:08:57 04/09/2004/11/2017 pap, IG + HPV, cervi porter clinician provided ICD10: COMMEN T Z01.4 19 Z11.5 1 Z20.2 Not Available [facility] ([facility]) [address] [facility], [place], [address], 04/11/2017 20:08:57 04/09/20 17 04/11/2017 pap, IG + HPV, cervi porter performed by: JEWELS ZACARIAS Not Available [facility] ([facility]) [address] [place], [address], 04/11/2017 20:08:57 04/09/20 17 04/11/2017 pap, IG + HPV, cervi porter electronical ly signed by: CRISS NOWAK MD, PATHO LOGIS T Not Available [facility] ([facility]) [address] [place], [address], 04/11/2017 20:08:57 04/09/20 17 04/11/2017 pap, IG + HPV, cervi porter . . Not Available [facility] ([facility]) [address] [place], [address], 04/11/2017 20:08:57 04/09/20 17 04/11/2017 pap, IG + HPV, cervi porter pathologist provided ICD10: CRISS Davis R87.5 Not Available [facility] ([facility]) [address] [place], [address], 04/11/2017 20:08:57 04/09/2004/11/2017 pap, IG + HPV, cervi porter note: CRISS Davis THE PAP SMEAR IS A SCREE KENYATTA TEST DESIG BETTY TO AID IN THE DETEC TION OF MARCELO LIGNA NT AND MALIG NANT CONDI TIONS OF THE UTERI NE CERVI X. IT IS NOT A DIAGN OSTIC PROCE DURE AND SHOUL D NOT BE USED THE SOLE MEANS OF DETEC TING CERVI PORTER CANCE R. BOTH FALSE -POSI TIVE AND FALSE -NEGA TIVE REPOR TS DO OCCUR . Not Available [facility] ([facility]) [address] [place], [address], 04/11/2017 20:08:57 04/09/20 17 04/11/2017 pap, IG + HPV, cervi porter test methodology: COMMEN T THIS LIQUI D BASED THINP REP(R ) PAP TEST WAS ANA HANNA WITH THE USE OF AN IMAGE GUIDE Everett Amador Not Available [facility] ([facility]) [address] [place], [address], 04/11/2017 20:08:57 04/09/20 17 04/11/2017 pap, IG + HPV, cervi porter HPV aptima NEGATI VE negati ve THIS TEST DETEC TS FOURT EEN HIGH- RISK HPV TYPES (16/1 8/31/ 33/35 /39/4 5/ 51/52 /56/5 8/59/ 66/68 ) WITHO UT HOA BAIRD . Not Available [facility] ([facility]) [address] [place], [address], 04/11/2017 20:08:57 04/09/20 17 04/14/2017 bacte rial vagin osis + vagin itis panel , vagin al camila albicans, ERIBERTO NEGATI VE negati ve Not Available [facility] ([facility]) [address] [place], [address], 04/16/2017 14:12:01 04/09/20 17 04/14/2017 bacte rial vagin osis + vagin itis panel , vagin al camila glabrata, ERIBERTO NEGATI VE negati ve THIS TEST WAS DEVEL OPED AND ITS PERFO RMANC E ALF CTERI STICS DETER MINED BY [facility]. IT HAS NOT BEEN CLEAR ED OR APPRO KAITLIN BY THE FOOD AND DRUG ADMIN ISTRA TION. THE FDA HAS DETER MINED THAT SUCH CLEAR ANCE OR APPRO SELENE IS NOT NECES SHEILA. Not Available [facility] ([facility]) [address] [place], [address], 04/16/2017 14:12:01 04/09/20 17 04/15/2017 bacte rial vagin osis + vagin itis panel , vagin al atopobium vaginae MODERA TE - 1 score Not Available [facility] ([facility]) [address] [place], [address], 04/16/2017 14:12:01 04/09/20 17 04/15/2017 bacte rial vagin osis + vagin itis panel , vagin al bvab 2 HIGH - 2 score abnormal Not Available [facility] ([facility]) [address] [facility], [place], [address], 04/16/2017 14:12:01 04/09/20 17 04/15/2017 bacte rial vagin osis + vagin itis panel , vagin al megasphaera 1 HIGH - 2 score abnormal CALCU LATE TOTAL SCORE BY ANIBAL Manuel THE 3 INDIV IDUAL BACTE RIAL VAGIN OSIS (BV) MARKE R SCORE S TOGET HER. TOTAL SCORE IS INTER PRETE D FOLLO WS: TOTAL SCORE 0-1: INDIC ATES THE ABSEN CE OF BV. TOTAL SCORE 2: INDET ERMIN ATE FOR BV. ADDIT IONAL CLINI PORTER DATA SHOUL D BE EVALU ATED TO ESTAB SONYA A DIAGN OSIS. TOTAL SCORE 3-6: INDIC ATES THE PRESE NCE OF BV. THIS TEST WAS DEVEL OPED AND ITS PERFO RMANC E ALF CTERI STICS DETER MINED BY [facility]. IT HAS NOT BEEN CLEAR ED OR APPRO KAITLIN BY THE FOOD AND DRUG ADMIN ISTRA TION. THE FDA HAS DETER MINED THAT SUCH CLEAR ANCE OR APPRO SELENE IS NOT NECES SHEILA. Not Available [facility] ([facility]) [address] [facility], [place], [address], 04/16/2017 14:12:01 04/09/20 17 04/15/2017 bacte rial vagin osis + vagin itis panel , vagin al chlamydia trachomatis, ERIBERTO NEGATI VE negati ve Not Available [facility] ([facility]) [address] [facility], [place], [address], 04/16/2017 14:12:01 04/09/20 17 04/15/2017 bacte rial vagin osis + vagin itis panel , vagin al neisseria gonorrhoeae, ERIBERTO NEGATI VE negati ve Not Available [facility] ([facility]) [address] [facility], [place], [address], 04/16/2017 14:12:01 04/09/20 17 04/16/2017 bacte rial vagin osis + vagin itis panel , vagin al trich vag by ERIBERTO NEGATI VE negati ve Not Available [facility] ([facility]) [address] [facility], [place], [address], 04/16/2017 14:12:01 04/09/20 17 04/10/2017 hepat itis panel (A+B+ C), acute , serum hep A Ab, IgM TNP NO SERUM GEL RECEI KAITLIN. Not Available [facility] ([facility]) [address] [place], [address], 04/16/2017 14:12:02 04/09/20 17 04/10/2017 hepat itis panel (A+B+ C), acute , serum HBsAg screen TNP TEST NOT PERFO RMED Not Available [facility] ([facility]) [address] [facility], [place], [address], 04/16/2017 14:12:02 04/09/20 17 04/10/2017 hepat itis panel (A+B+ C), acute , serum hep B core Ab, IgM TNP TEST NOT PERFO RMED Not Available [facility] ([facility]) [address] [place], [address], 04/16/2017 14:12:02 04/09/20 17 04/10/2017 hepat itis panel (A+B+ C), acute , serum hep C virus Ab TNP TEST NOT PERFO RMED Not Available [facility] ([facility]) [address] [place], [address], 04/16/2017 14:12:02 04/09/20 17 04/14/2017 HSV (1+2) DNA, qual, PCR, unspe cifie d speci men hsv 1 ERIBERTO NEGATI VE negati ve Not Available [facility] ([facility]) [address] [place] [address], [address], 04/16/2017 14:12:03 04/09/20 17 04/14/2017 HSV (1+2) DNA, qual, PCR, unspe cifie d speci men hsv 2 ERIBERTO NEGATI VE negati ve Not Available [facility] ([facility]) [address] [facility], [place], [address], 04/16/2017 14:12:03 04/09/20 17 04/10/2017 hepat itis B surfa ce Ab, quali tativ e, serum hep B surface Ab, qual TNP NO SERUM GEL RECEI KAITLIN. NON REACT ALIX: INCON SISTE NT WITH IMMUN ITY, LESS THAN 10 MIU/M L REACT ALIX: CONSI STENT WITH IMMUN ITY, GREAT ER THAN 9.9 MIU/M L Not Available [facility] ([facility]) [address] [facility], [place], [address], 04/16/2017 14:12:03 04/09/20 17 04/10/2017 RPR (rapi d plasm a reagi n), serum RPR TNP NO SERUM GEL RECEI KAITLIN. Not Available [facility] ([facility]) [address] [facility], [place], [address], 04/16/2017 14:12:04 04/09/20 17 04/10/2017 HIV 1+2 AB + HIV 1 p24 Ag, quali tativ e immun oassa y, serum HIV screen 4TH generation wrfx TNP NO SERUM GEL RECEI KAITLIN. Not Available [facility] ([facility]) [address] [place] [address], [address], 04/16/2017 14:12:04 04/09/20 17 04/10/2017 hsv-2 (herp es simpl ex virus type 2) igg Ab, serum hsv 2 IgG, type spec TNP index NO SERUM GEL RECEI KAITLIN. NEGAT ALIX <0.91 EQUIV OCAL 0.91 - 1.09 POSIT ALIX >1.09 NOTE: NEGAT ALIX INDIC ATES NO ANTIB ODIES DETEC OLIVA TO HSV-2 . EQUIV OCAL MAY SUGGE ST EARLY INFEC TION. IF CLINI GEOVANI APPRO PRIAT E, RETES T AT LATER DATE. POSIT ALIX INDIC ATES ANTIB ODIES DETEC OLIVA TO HSV-2 . Not Available [facility] ([facility]) [address] [facility], [place], [address], 04/16/2017 14:12:05 04/09/20 17 04/11/2017 cultu re, vagin al/re ctal, strep tococ cus group B strep gp B ERIBERTO POSITI VE negati ve abnormal CENTE RS FOR DISEA SE CONTR OL AND PREVE NTION (CDC) AND AMERI CAN CONGR ESS OF OBSTE TRICI ANS AND GYNEC OLOGI STS (ACOG ) GUIDE LINES FOR PREVE NTION OF PERIN ATAL GROUP B STREP TOCOC PORTER (GBS) DISEA SE SPECI FY CO-CO LLECT ION OF A VAGIN AL AND RECTA L SWAB SPECI MEN TO MAXIM IZE SENSI TIVIT Y OF GBS DETEC TION. PER THE CDC AND ACOG, SWABB ING BOTH THE LOWER VAGIN A AND RECTU M SUBST ANTIA LLY INCRE ASES THE YIELD OF DETEC TION DAVID RED WITH SAMPL ING THE VAGIN A ALONE . PENIC ILLIN G, AMPIC ILLIN , OR CEFAZ MARY ARE INDIC ATED FOR INTRA PARTU M PROPH YLAXI S OF PERIN ATAL GBS COLON IZATI ON. REFLE X SUSCE PTIBI LITY TESTI NG SHOUL D BE PERFO RMED PRIOR TO USE OF CLIND AMYCI N ONLY ON GBS ISOLA BETH FROM PENIC ILLIN -OLIVA RGIC WOMEN WHO ARE CONSI DERED A HIGH RISK FOR ANAPH YLAXI S. TREAT MENT WITH VANCO MYCIN WITHO UT ADDIT IONAL TESTI NG IS WARRA NTED IF RESIS TANCE TO CLIND AMYCI N IS NOTED . Not Available [facility] ([facility]) [address] [facility], [place], [address], 04/16/2017 14:12:05 04/09/20 17 04/10/[address] probl em request problem TNP NO SERUM GEL RECEI KAITLIN. TEST: 93990 4 HEPAT ITIS PANEL (4 [address] [address] [place] [address] 5 RPR, RF[place] Q[place] RPR/[place] [address] 5 PANEL 25591 5 89055 7 HSV TYPE 2-SPE CIFIC AB, IGG Not Available [facility] ([facility]) [address] [facility], [place], [address], 04/16/2017 14:12:06 11/18/20 18 11/18/2018 CBC w/ auto diff WBC 6.2 K/uL 3.4-10 .8 Not Available [facility] (Lab) [address], [place], [address], 11/18/2018 19:44:38 11/18/20 18 11/18/2018 CBC w/ auto diff red blood count 4.0 M/uL 4.2-5. 4 low Not Available [facility] (Lab) [address], [place], [address], 11/18/2018 19:44:38 11/18/20 18 11/18/2018 CBC w/ auto diff hemoglobin 11.4 g/dL 11.5-1 5.5 low Not Available [facility] (Lab) [address], [place], [address], 11/18/2018 19:44:38 11/18/20 18 11/18/2018 CBC w/ auto diff hematocrit 37.2 % 36.0-4 8.0 Not Available [facility] (Lab) [address], [place], [address], 11/18/2018 19:44:38 11/18/20 18 11/18/2018 CBC w/ auto diff MCV 93 fL 80-95 Not Available [facility] (Lab) [address] [place], [address], 11/18/2018 19:44:38 11/18/20 18 11/18/2018 CBC w/ auto diff MCH 28 pg 27-32 Not Available [facility] (Lab) [address] [place], [address], 11/18/2018 19:44:38 11/18/20 18 11/18/2018 CBC w/ auto diff MCHC 31 g/dL 32-36 low Not Available [facility] (Lab) [address] [place], [address], 11/18/2018 19:44:38 11/18/20 18 11/18/2018 CBC w/ auto diff platelets 302 K/uL 155-37 9 Not Available [facility] (Lab) [address] [place], [address], 11/18/2018 19:44:38 11/18/20 18 11/18/2018 CBC w/ auto diff RDW 14.1 % 11.5-1 4.5 Not Available [facility] (Lab) [address] [place], [address], 11/18/2018 19:44:38 11/18/20 18 11/18/2018 CBC w/ auto diff MPV 11.1 fL 8.9-12 .7 Not Available [facility] (Lab) [address] [place], [address], 11/18/2018 19:44:38 11/18/20 18 11/18/2018 CBC w/ auto diff neutrophils absolute 3.7 K/uL 1.4-7. 0 Not Available [facility] (Lab) [address] [place], [address], 11/18/2018 19:44:38 11/18/20 18 11/18/2018 CBC w/ auto diff lymphs (absolute) 1.9 K/uL 0.7-3. 1 Not Available [facility] (Lab) [address] [place], [address], 11/18/2018 19:44:38 11/18/20 18 11/18/2018 CBC w/ auto diff monocytes (absolute) 0.5 K/uL 0.1-0. 9 Not Available [facility] (Lab) [address] [facility], [place], [address], 11/18/2018 19:44:38 11/18/20 18 11/18/2018 CBC w/ auto diff eos (absolute) 0.1 K/uL 0.0-0. 4 Not Available [facility] ([facility]) [address] [facility], [place], [address], 11/18/2018 19:44:38 11/18/20 18 11/18/2018 CBC w/ auto diff baso (absolute) 0.0 K/uL 0.1-0. 3 low Not Available [facility] ([facility]) [address] [facility], [place], [address], 11/18/2018 19:44:38 11/18/20 18 11/18/2018 CBC w/ auto diff neut % 59.3 % 40.0-7 4.0 Not Available [facility] ([facility]) [address] [facility], [place], [address], 11/18/2018 19:44:38 11/18/20 18 11/18/2018 CBC w/ auto diff lymphs % 29.9 % 14.0-4 6.0 Not Available [facility] (Lab) [address] [place], [address], 11/18/2018 19:44:38 11/18/20 18 11/18/2018 CBC w/ auto diff mono % 8.7 % 4.0-12 .0 Not Available [facility] ([facility]) [address] [place], [address], 11/18/2018 19:44:38 11/18/20 18 11/18/2018 CBC w/ auto diff eos % 1 % <=5 Not Available [facility] ([facility]) [address] [place], [address], 11/18/2018 19:44:38 11/18/20 18 11/18/2018 CBC w/ auto diff baso % 0.6 % 0.1-1. 1 Not Available [facility] ([facility]) [address] [place], [address], 11/18/2018 19:44:38 11/18/20 18 11/18/2018 lipid panel w/ direc t LDL, serum cholestrol 159.0 mg/dL 140.0- 200.0 Not Available [facility] (Lab) [address] [facility], [place], [address], 11/18/2018 20:03:46 11/18/20 18 11/18/2018 lipid panel w/ direc t LDL, serum triglyceride s 225 mg/dL <=150 high Not Available [facility] (Lab) [address] [facility], [place], [address], 11/18/2018 20:03:46 11/18/20 18 11/18/2018 lipid panel w/ direc t LDL, serum HDL cholesterol 43.0 mg/dL 40.0-1 00.0 Not Available [facility] (Lab) [address] [facility], [place], [address], 11/18/2018 20:03:46 11/18/20 18 11/18/2018 lipid panel w/ direc t LDL, serum LDL direct 92 mg/dL <=100 Not Available [facility] ([facility]) [address] [place], [address], 11/18/2018 20:03:46 11/18/20 18 11/18/2018 lipid panel w/ direc t LDL, serum cholhdl 3.70 mg/dL 0.00-4 .98 Not Available [facility] ([facility] [address] [place], [address], 11/18/2018 20:03:46 11/18/20 18 11/18/2018 CMP, serum or plasm a glucose, serum 90 mg/dL 65-99 Not Available [facility] (Lab) [address] [place], [address], 11/18/2018 20:03:46 11/18/20 18 11/18/2018 CMP, serum or plasm a BUN 14 mg/dL 8-26 Not Available [facility] (Lab) [address], [place], [address], 11/18/2018 20:03:46 11/18/20 18 11/18/2018 CMP, serum or plasm a creatinine, serum 1.00 mg/dL 0.50-1 .40 Not Available [facility] (Lab) [address] [place], [address], 11/18/2018 20:03:46 11/18/20 18 11/18/2018 CMP, serum or plasm a BUN/creatnin e ratio 14.0 Not Available [facility] (Lab) [address], [place], [address], 11/18/2018 20:03:46 11/18/20 18 11/18/2018 CMP, serum or plasm a sodium, serum 144.0 mEq/L 136.0- 144.0 Not Available [facility] (Lab) [address] [place], [address], 11/18/2018 20:03:46 11/18/20 18 11/18/2018 CMP, serum or plasm a potassium, serum 4.6 mmol/ L 3.5-5. 3 Not Available [facility] (Lab) [address] [place], [address], 11/18/2018 20:03:46 11/18/20 18 11/18/2018 CMP, serum or plasm a chloride, serum 106 mmol/ l 101-11 1 Not Available [facility] (Lab) [address] [place], [address], 11/18/2018 20:03:46 11/18/20 18 11/18/2018 CMP, serum or plasm a carbon dioxide total 26.9 mmol/ L 21.0-3 2.0 Not Available [facility] (Lab) [address] [place], [address], 11/18/2018 20:03:46 11/18/20 18 11/18/2018 CMP, serum or plasm a aniongp 15.0 mmol/ L Not Available [facility] (Lab) [address], [place], [address], 11/18/2018 20:03:46 11/18/20 18 11/18/2018 CMP, serum or plasm a calcium, serum 9.7 mg/dL 8.2-10 .0 Not Available [facility] (Lab) [address] [place], [address], 11/18/2018 20:03:46 11/18/20 18 11/18/2018 CMP, serum or plasm a total protein 6.8 g/dL 6.7-8. 2 Not Available [facility] (Lab) [address] [place], [address], 11/18/2018 20:03:46 11/18/20 18 11/18/2018 CMP, serum or plasm a albumin, serum 4.3 g/dL 3.5-5. 5 Not Available [facility] (Lab) [address] [place], [address], 11/18/2018 20:03:46 11/18/20 18 11/18/2018 CMP, serum or plasm a agratio 1.7 Not Available [facility] (Lab) [address] [place], [address], 11/18/2018 20:03:46 11/18/20 18 11/18/2018 CMP, serum or plasm a bilt 0.2 mg/dL 0.0-1. 2 Not Available [facility] (Lab) [address] [place], [address], 11/18/2018 20:03:46 11/18/20 18 11/18/2018 CMP, serum or plasm a AST 12.0 U/L 10.0-4 2.0 Not Available [facility] (Lab) [address] [place], [address], 11/18/2018 20:03:46 11/18/20 18 11/18/2018 CMP, serum or plasm a ALT 11.0 U/L 10.0-6 0.0 Not Available [facility] (Lab) [address] [place], [address], 11/18/2018 20:03:46 11/18/20 18 11/18/2018 CMP, serum or plasm a alk phos 70.0 IU/L 42.0-1 21.0 Not Available [facility] (Lab) [address] [place], [address], 11/18/2018 20:03:46 11/18/20 18 11/18/2018 CMP, serum or plasm a osmol 287.0 mOsm/ L 275.0- 301.0 Not Available [facility] (Lab) [address] [place], [address], 11/18/2018 20:03:46 11/18/20 18 11/18/2018 CMP, serum or plasm a eGFR, AM 86 m/lmi n/1.7 3_m >=60 Not Available [facility] (Lab) [address] [place], [address], 11/18/2018 20:03:46 11/18/20 18 11/18/2018 CMP, serum or plasm a eGFR, non- AM 71 mL/mi n/1.7 3/m >=60 Not Available [facility] (Lab) [address] [place], [address], 11/18/2018 20:03:46 11/18/20 18 11/18/2018 TSH, serum , refle x free T4 TSH 0.61 uIU/m L 0.50-4 .50 Not Available [facility] (Lab) [address] [place], [address], 11/18/2018 20:04:11 11/18/20 18 11/19/2018 HbA1c (hemo globi n A1c), blood hemoglobin A1C 5.0 % 4.8-5. 6 . Predi abete s: 5.7 - 6.4 Diabe beth: >6.4 Glyce damir contr ol for adult s with diabe beth: <7.0 Not Available [facility] (Lab) [address], [place], [address], 11/19/2018 05:09:24 11/18/20 18 11/18/2018 urina lysis , dipst ick Leukocytes Negati ve Not Available In-Office Order Internal Use Only DO Not Attach Compendium DO Not Attach Compendium, Do Not Delete/merge, [id number] 11/18/2018 16:33:18 11/18/20 18 11/18/2018 urina lysis , dipst ick Nitrite negati ve Not Available In-Office Order Internal Use Only DO Not Attach Compendium DO Not Attach Compendium, Do Not Delete/merge, [id number] 11/18/2018 16:33:18 11/18/20 18 11/18/2018 urina lysis , dipst ick Urobilinogen .2 Not Available In-Of fice Order Internal Use Only DO Not Attach Compendium DO Not Attach Compendium, Do Not Delete/merge, [id number] 11/18/2018 16:33:18 11/18/20 18 11/18/2018 urina lysis , dipst ick Protein Negati ve Not Available In-Office Order Internal Use Only DO Not Attach Compendium DO Not Attach Compendium, Do Not Delete/merge, [id number] 11/18/2018 16:33:18 11/18/20 18 11/18/2018 urina lysis , dipst ick pH 5.5 Not Available In-Office Order Internal Use Only DO Not Attach Compendium DO Not Attach Compendium, Do Not Delete/merge, [id number] 11/18/2018 16:33:18 11/18/20 18 11/18/2018 urina lysis , dipst ick Blood Negati ve Not Available In-Office Order Internal Use Only DO Not Attach Compendium DO Not Attach Compendium, Do Not Delete/merge, [id number] 11/18/2018 16:33:18 11/18/20 18 11/18/2018 urina lysis , dipst ick Specific [place] 1.030 Not Available In-Off ice Order Internal Use Only DO Not Attach Compendium DO Not Attach Compendium, Do Not Delete/merge, [id number] 11/18/2018 16:33:18 11/18/20 18 11/18/2018 urina lysis , dipst ick Ketone Negati ve Not Available In-Office Order Internal Use Only DO Not Attach Compendium DO Not Attach Compendium, Do Not Delete/merge, [id number] 11/18/2018 16:33:18 11/18/20 18 11/18/2018 urina lysis , dipst ick Bilirubin Negati ve Not Available In-Office Order Internal Use Only DO Not Attach Compendium DO Not Attach Compendium, Do Not Delete/merge, [id number] 11/18/2018 16:33:18 11/18/20 18 11/18/2018 urina lysis , dipst ick Glucose Negati ve Not Available In-Office Order Internal Use Only DO Not Attach Compendium DO Not Attach Compendium, Do Not Delete/merge, [id number] 11/18/2018 16:33:18 11/18/20 18 11/18/2018 urina lysis , dipst ick Appearance Clear Not Available In-Offi ce Order Internal Use Only DO Not Attach Compendium DO Not Attach Compendium, Do Not Delete/merge, [id number] 11/18/2018 16:33:18 11/18/20 18 11/18/2018 urina lysis , dipst ick Color Pale Yellow Not Available In-Office Order Internal Use Only DO Not Attach Compendium DO Not Attach Compendium, Do Not Delete/merge, [id number] 11/18/2018 16:33:18 11/18/20 18 11/18/2018 pregn damian test, urine HCG negati ve Not Available In-Office Order Internal Use Only DO Not Attach Compendium DO Not Attach Compendium, Do Not Delete/merge, [id number] 11/18/2018 16:33:06 06/09/20 20 06/09/2020 SARS CoV 2 RNA (COVI D-19) , QL, network infrastructure architect-P CR, respi rator y speci men sars - cov - 2 PCR NEGATI VE mL Not Available [facility] (Lab) [address] [facility], [place], [address], 06/15/2020 18:46:04 06/09/20 20 06/09/2020 SARS CoV 2 RNA (COVI D-19) , QL, network infrastructure architect-P CR, respi rator y speci men covidcom1 COMME NTS: This assay is desig betty to detec t the RdRp and N genes of SARS- CoV-2 using nucle ic acid ampli ficat ion. A negat alix resul t does not precl ude the possi bilit y of 2019- nCoV infec tion since the adequ acy of sampl e colle ction and/o r low viral burde n may resul t in the prese nce of viral nucle ic acids level s below the kati tical sensi tivit y of this test metho d. Not Available [facility] (Lab) [address] [place], [address], 06/15/2020 18:46:04 06/09/20 20 06/09/2020 SARS CoV 2 RNA (COVI D-19) , QL, network infrastructure architect-P CR, respi rator y speci men covidcom2 Posit alix resul ts are indic ative of the prese nce of SARS- CoV-2 RNA and do not rule out bacte rial infec tion or co-in fecti on with other virus es. Not Available [facility] (Lab) [address] [facility], [place], [address], 06/15/2020 18:46:04 06/09/20 20 06/09/2020 SARS CoV 2 RNA (COVI D-19) , QL, network infrastructure architect-P CR, respi rator y speci men covidcom3 Test resul ts shoul d be used along with other clini porter obser vatio ns, patie nt histo ry, epide miolo gical infor matio n and labor atory data in [place] manuel the diagn osis. Not Available [facility] (Lab) [address] [facility], [place], [address], 06/15/2020 18:46:04 06/09/20 20 06/09/2020 SARS CoV 2 RNA (COVI D-19) , QL, network infrastructure architect-P CR, respi rator y speci men covidcom4 This test has recei kaitlin FDA Emerg ency Use Autho rizat ion and has been verif ied by [facility] . This test is only autho rized for the durat ion of the decla ratio n and the circu mstan ekta that exist to justi fy the autho rizat ion of the emerg ency use of in vitro diagn ostic tests for the detec tion of SARS- CoV-2 virus and/o r diagn osis of COVID -19 infec tion under secti on 564 (b) (1) of the Act. 11 U.S.C . 360bb b-3 (b) (1), unles s the autho rizat ion is termi nated or revok ed soone r. Not Available [facility] (Lab) [address] [place], [address], 06/15/2020 18:46:04 06/09/20 20 06/09/2020 SARS CoV 2 RNA (COVI D-19) , QL, network infrastructure architect-P CR, respi rator y speci men covidcom5 [facility] benitez raines is certi fied under CLIA- 88 as quali fied to perfo rm high compl exity testi ng. This testi ng [facility] [place] [address] (CLIA Licen se #[id number], CAP #[id number], AU-ID #[id number]). Not Available [facility] (Lab) [address] [place], [address], 06/15/2020 18:46:04 06/09/20 20 06/09/2020 SARS CoV 2 RNA (COVI D-19) , QL, network infrastructure architect-P CR, respi rator y speci men covidcom6 Facts heet for healt hcare provi ders: https ://ww w.fda .gov/ media /0591 56/do wnloa d Facts heet for patie nts: https ://[employer] w.fda .gov/ media /1362 57/do wnloa d Not Available [facility] (Lab) [address], [place], [address], 06/15/2020 18:46:04 06/09/20 20 06/09/2020 SARS CoV 2 RNA (COVI D-19) , QL, network infrastructure architect-P CR, respi rator y speci men sars - cov - 2 PCR NEGATI VE mL Not Available [facility] (Lab) [address] [facility], [place], [address], 06/16/2020 12:23:10 06/09/20 20 06/09/2020 SARS CoV 2 RNA (COVI D-19) , QL, network infrastructure architect-P CR, respi rator y speci men covidcom1 COMME NTS: This assay is desig betty to detec t the RdRp and N genes of SARS- CoV-2 using nucle ic acid ampli ficat ion. A negat alix resul t does not precl ude the possi bilit y of 2019- nCoV infec tion since the adequ acy of sampl e colle ction and/o r low viral burde n may resul t in the prese nce of viral nucle ic acids level s below the kati tical sensi tivit y of this test metho d. Not Available [facility] (Lab) [address] [facility], [place], [address], 06/16/2020 12:23:10 06/09/20 20 06/09/2020 SARS CoV 2 RNA (COVI D-19) , QL, network infrastructure architect-P CR, respi rator y speci men covidcom2 Posit alix resul ts are indic ative of the prese nce of SARS- CoV-2 RNA and do not rule out bacte rial infec tion or co-in fecti on with other virus es. Not Available [facility] (Lab) [address] [facility], [place], [address], 06/16/2020 12:23:10 06/09/20 20 06/09/2020 SARS CoV 2 RNA (COVI D-19) , QL, network infrastructure architect-P CR, respi rator y speci men covidcom3 Test resul ts shoul d be used along with other clini porter obser vatio ns, patie nt histo ry, epide miolo gical infor matio n and labor atory data in montse g the diagn osis. Not Available [facility] (Lab) [address] [place], [address], 06/16/2020 12:23:10 06/09/20 20 06/09/2020 SARS CoV 2 RNA (COVI D-19) , QL, network infrastructure architect-P CR, respi rator y speci men covidcom4 This test has recei kaitlin FDA Emerg ency Use Autho rizat ion and has been verif ied by [facility] . This test is only autho rized for the durat ion of the decla ratio n and the circu mstan ekta that exist to justi fy the autho rizat ion of the emerg ency use of in vitro diagn ostic tests for the detec tion of SARS- CoV-2 virus and/o r diagn osis of COVID -19 infec tion under secti on 564 (b) (1) of the Act. 11 U.S.C . 360bb b-3 (b) (1), unles s the autho rizat ion is termi nated or revok ed soone r. Not Available [facility] (Lab) [address] [place], [address], 06/16/2020 12:23:10 06/09/20 20 06/09/2020 SARS CoV 2 RNA (COVI D-19) , QL, network infrastructure architect-P CR, respi rator y speci men covidcom5 [facility] is certi fied under CLIA- 88 as quali fied to perfo rm high compl exity testi ng. This testi ng was perfo rmed in the [facility] [place] [address] (CLIA Licen se #[id number], CAP #[id number], AU-ID #[id number]). Not Available [facility] (Lab) [address] [place], [address], 06/16/2020 12:23:10 06/09/20 20 06/09/2020 SARS CoV 2 RNA (COVI D-19) , QL, network infrastructure architect-P CR, respi rator y speci men covidcom6 Facts heet for healt hcare provi ders: https ://ww w.[employer] .gov/ media /1362 56/do wnloa d Facts heet for patie nts: https ://Defense.Net.fda .gov/ media /1362 57/do wnloa d Not Available [facility] (Lab) [address] [facility], [place], [address], 06/16/2020 12:23:10 06/09/20 20 06/09/2020 SARS CoV 2 RNA (COVI D-19) , QL, network infrastructure architect-P CR, respi rator y speci men sars - cov - 2 PCR NEGATI VE mL Not Available [facility] (Lab) [address] [facility], [place], [address], 06/18/2020 13:36:11 06/09/20 20 06/09/2020 SARS CoV 2 RNA (COVI D-19) , QL, network infrastructure architect-P CR, respi rator y speci men covidcom1 COMME NTS: This assay is desig betty to detec t the RdRp and N genes of SARS- CoV-2 using nucle ic acid ampli ficat ion. A negat alix resul t does not precl ude the possi bilit y of 2019- nCoV infec tion since the adequ acy of sampl e colle ction and/o r low viral burde n may resul t in the prese nce of viral nucle ic acids level s below the kati tical sensi tivit y of this test metho d. Not Available [facility] (Lab) [address] [facility], [place], [address], 06/18/2020 13:36:11 06/09/20 20 06/09/2020 SARS CoV 2 RNA (COVI D-19) , QL, network infrastructure architect-P CR, respi rator y speci men covidcom2 Posit alix resul ts are indic ative of the prese nce of SARS- CoV-2 RNA and do not rule out bacte rial infec tion or co-in fecti on with other virus es. Not Available [facility] (Lab) [address] [place], [address], 06/18/2020 13:36:11 06/09/20 20 06/09/2020 SARS CoV 2 RNA (COVI D-19) , QL, network infrastructure architect-P CR, respi rator y speci men covidcom3 Test resul ts shoul d be used along with other clini porter obser vatio ns, patie nt histo ry, epide miolo gical infor matio n and labor atory data in [facility] g the diagn osis. Not Available [facility] (Lab) [address] [facility], [place], [address], 06/18/2020 13:36:11 06/09/20 20 06/09/2020 SARS CoV 2 RNA (COVI D-19) , QL, network infrastructure architect-P CR, respi rator y speci men covidcom4 This test has recei kaitlin FDA Emerg ency Use Autho rizat ion and has been verif ied by [facility] . This test is only autho rized for the durat ion of the decla ratio n and the circu mstan ekta that exist to justi fy the autho rizat ion of the emerg ency use of in vitro diagn ostic tests for the detec tion of SARS- CoV-2 virus and/o r diagn osis of COVID -19 infec tion under secti on 564 (b) (1) of the Act. 11 U.S.C . 360bb b-3 (b) (1), unles s the autho rizat ion is termi nated or revok ed soone r. Not Available [facility] (Lab) [address] [place], [address], 06/18/2020 13:36:11 06/09/20 20 06/09/2020 SARS CoV 2 RNA (COVI D-19) , QL, network infrastructure architect-P CR, respi rator y speci men covidcom5 [facility] at[facility] is certi fied under CLIA- 88 as quali fied to perfo rm high compl exity testi ng. This testi ng was perfo rmed in the [facility] [address] (CLIA Licen se #[id number], CAP #[id number], AU-ID #[id number]). Not Available [facility] (Lab) [address] [place], [address], 06/18/2020 13:36:11 06/09/20 20 06/09/2020 SARS CoV 2 RNA (COVI D-19) , QL, network infrastructure architect-P CR, respi rator y speci men covidcom6 Facts heet for healt hcare provi ders: https ://ww [employer] .gov/ media /1362 56/do wnloa d Facts heet for patie nts: https ://Defense.Net.[employer] .gov/ media /1362 57/do wnloa d Not Available [facility] (Lab) [address] [facility], [place], [address], 06/18/2020 13:36:11 04/29/20 24 04/29/2024 CT, abdom en + pelvi s, w/ contr ast No observ ation record ed. [email or web address] [facility] [address] [place], [address], 05/08/2024 14:16:34 06/09/20 24 06/09/2024 CT, abdom en + pelvi s, w/o contr ast No observ ation record ed. [address] [place], [address], 07/04/2024 00:11:12 Result Notes None recorded. Problems Name Problem SNOMED Code Status Onset Date Resolution Date Notes Provider Name and Address Organization Details Recorded Time Abdominal bloating 146310022 Active 2023 Shane Jackson MD Attn: Kami manuel,[address] [facility], [place], [address], [facility] 4 21:24:35 Diverticuli tis 573307010 Active 2023 Shane Jackson MD Attn: Kami manuel,[address] [place], [address], [facility] - [facility] 4 21:24:45 Hematochezi a 424764818 Active 2023 Shane Jackson MD Attn: Kami manuel,[address] [facility], [place], [address], [facility] - SI 4 21:26:01 HPV - Human papillomavi magy test positive Completed 201604/09/2017 Lion gloria [facility] 7 13:13:39 Problem Notes None recorded. Procedures Surgical History Date Name Laterality Status Provider Name and Address Organization Details Recorded Time IUD Removal completed Lion Cageman [facility] 7 13:18:30 Imaging Results Imaging Date Name Status LastModified by Organiz ation Details LastModified Time 04/29/2024 CT, abdomen + pelvis, w/ contrast completed [email or web address] [address] [place], [address], 05/08/2024 14:16:34 06/09/2024 CT, abdomen + pelvis, w/o contrast completed [address] [place], [address], 07/04/2024 00:11:12 Procedure Notes None recorded. Medical Equipment None Reported. Allergies No known drug allergies Medications Name Sig Start Date Stop Date Status Note LastModified by Organization Details LastModified Time multivitamin tablet Take 1 tablet every day by oral route. 11/18 completed Not Available Not Available Not Available hydrocodone 5 mg-acetamino phen 325 mg tablet 11/18 completed Not Available Not Available Not Available ondansetron HCl 4 mg tablet 11/18 completed Not Available Not Available Not Available Zithromax Z-Kam 250 mg tablet TAKE 2 TABLETS (500 MG) BY ORAL ROUTE ONCE DAILY FOR 1 DAY THEN 1 TABLET (250 MG) BY ORAL ROUTE ONCE DAILY FOR 4 DAYS 11/18 completed Not Available Not Available Not Available metronidazol e 500 mg tablet TAKE 1 TABLET BY MOUTH TWICE DAILY FOR 7 DAYS active Not Available Not Available No t Available ciprofloxaci n 500 mg tablet TAKE 1 TABLET BY MOUTH TWICE DAILY active Not Available Not Available No t Available sulfamethoxa zole 800 mg-trimethop rim 160 mg tablet active Not Available Not Available Not Available hydrocodone 10 mg-acetamino phen 325 mg tablet 11/18 completed Not Available Not Available Not Available tramadol 50 mg tablet 11/18 completed Not Available Not Available Not Available acetaminophe n 500 mg tablet TAKE 2 TABLETS BY MOUTH EVERY 6 HOURS NEEDED active Not Available Not Available No t Available alprazolam 0.5 mg tablet 11/18 completed Not Available Not Available Not Available famotidine 20 mg tablet 11/18 completed Not Available Not Available Not Available DOK 100 mg capsule 11/18 completed Not Available Not Available Not Available dicyclomine 20 mg tablet Take 1 tablet twice a day by oral route as needed. active Not Available Not Available No t Available doxycycline monohydrate 100 mg capsule 11/18 completed Not Available Not Available Not Available ferrous sulfate 325 mg (65 mg iron) tablet 11/18 completed Not Available Not Available Not Available ibuprofen 600 mg tablet active Not Available Not Available Not Available methylpredni solone 4 mg tablets in a dose pack 11/18 completed Not Available Not Available Not Available ondansetron 4 mg disintegrati ng tablet 11/18 completed Not Available Not Available Not Available doxycycline hyclate 100 mg tablet TAKE 1 TABLET BY MOUTH TWICE DAILY FOR 7 DAYS active Not Available Not Available No t Available metocloprami de 10 mg tablet 11/18 completed Not Available Not Available Not Available amoxicillin 875 mg-potassium clavulanate 125 mg tablet active Not Available Not Available Not Available naproxen 375 mg tablet,delay ed release 11/18 completed Not Available Not Available Not Available Oysco 500/D 500 mg-5 mcg (200 unit) tablet 11/18 completed Not Available Not Available Not Available Calcium with Vitamin D 600 mg-10 mcg (400 unit) tablet Take 1 tablet twice a day by oral route. 11/18 completed Not Available Not Available Not Available Xulane 150 mcg-35 mcg/24 hr transdermal patch Appy 1 patch to skin weekly 11/18 completed Not Available Not Available Not Available Metamucil 3.4 gram/5.4 gram oral powder Take 3.4 g every day by oral route. 2023 active Not Available Not Available Not Avai lable Vitals Date Recorded Body weight Body temperature Oxygen saturation Oxygen saturation in Arterial blood by Pulse oximetry Heart rate Systolic blood pressure Diastolic blood pressure Provider Name and Address Organization Details Last Updated DateTime 8 33394.7 4 g 98.6 [degF] 98 % 98 % 92 /min 110 mm[Hg] 60 mm[Hg] Azael Adam MA [facility] 8 14:40:08 Date Recorded Body height Body mass index (BMI) Body weight Heart rate Body temperature Systolic blood pressure Diastolic blood pressure Provider Name and Address Organization Details Last Updated DateTime 4 157.48 cm 22.1 kg/m2 68191.9 6 g 97 /min 97.4 [degF] 112 mm[Hg] 74 mm[Hg] Carina Avila MA [facility] 4 11:27:15 Date Recorded Body height Body mass index (BMI) Body weight Provider Name and Address Organization Details Last Updated DateTime 06/19/2024 157.48 cm 22.1 kg/m2 91212.96 g Carina Avila MA [facility] 06/19/2024 16:56:32 Date Recorded Body height Body weight Body mass index (BMI) Systolic blood pressure Diastolic blood pressure Provider Name and Address Organization Details Last Updated DateTime 04/09/2017 157.48 cm 23068.53 g 20.9 kg/m2 96 mm[Hg] 58 mm[Hg] Jasmin Burch MA [facility] 7 10:56:52 Social History Question Answer Notes LastModified by Organizat ion Details LastModified Time Tobacco Smoking Status Current Every Day Smoker Jasmin Burch MA [facility], [place] - [facility] 04/09/2017 11:03:54 Do You Have An Advance Directive? No Information not available 04/09/2017 What Is Your Level Of Alcohol Consumption? Occasional Information not available 04/09/2017 Is Blood Transfusion Acceptable In An Emergency? Yes Information not available 04/09/2017 What Is Your Level Of Caffeine Consumption? Moderate Information not available 04/09/2017 Are You Currently Employed? Yes Information not available 04/09/2017 What Type Of Diet Are You Following? REGULAR Information not available 04/09/2017 Which Illicit Or Recreational Drugs Have You Used? Marijuana Information not available 04/09/2017 Education 12 Information no t available 04/09/2017 What Is The Highest Grade Or Level Of School You Have Completed Or The Highest Degree You Have Received? 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 With Others Information not available 04/09/2017 What Was The Date Of Your Most Recent Tobacco Screening? 06/13/2024 Information not available 06/13/2024 How Many Children Do You Have? 1 Information not available 04/09/2017 What Is Your Current Pack Years? 10-19packyears Information not available 06/13/2024 Performs Monthly Self-breast Exam? No Information no t available 04/09/2017 Do You Use Protection During Sex? Usually Information not available 04/09/2017 What Is Your Relationship Status? Single Information not available 04/09/2017 Do You Use Your Seat Belt Or Car Seat Routinely? Yes Information not available 06/13/2024 Seat Belts Used Routinely Yes Information not available 04/09/2017 Are You Sexually Active? Yes Information not available 04/09/2017 At What Age Did You Start Smoking Tobacco? 15 Information not available 04/09/2017 How Much Tobacco Do You Smoke? 0.5 PPD Information not available 04/09/2017 General Stress Level Low Information not available 04/09/2017 Do You Feel Stressed (tense, Restless, Nervous, Or Anxious, Or Unable To Sleep At Night)? [id number] Information not available 06/13/2024 Do You Use Any Illicit Or Recreational Drugs? Yes Information not available 06/13/2024 Do You Use Sunscreen Routinely? Yes Information not available 04/09/2017 Has Tobacco Cessation Counseling Been Provided? Yes Information not available 06/13/2024 On What Date Was Tobacco Cessation Counseling Provided? 06/13/2024 Information not available 06/13/2024 How Many Years Have You Smoked Tobacco? 10 Information not available 04/09/2017 Sex: Female Functional Status Question Answer Note LastModified by Organizat ion Details LastModified Time What is your exercise level? Occasional Information not available 04/09/2017 Mental Status None recorded. Family History Relationship Description Onset Age of this Age Resolved Age Notes LastModified by Organization Details LastModified Time Brother Asthma Not available 04/09/2017 11:02:26 Father Myocardial infarction 45 45 Not available 04/09 11:03:01 Maternal Grandmother Dementia Not available 03/26 11:03:17 Notes:no history of family c ancer or stroke Medical History Condition Response Other N High Blood Pressure N Breast Cancer N Lung Disease N Depression N Blood Clots N Breast Problem N Anesthesia Complications N Headaches/Migraines Y Anxiety Disorder Y Muscle, Joint, or Bone Problems N Polyps N Infertility N Acid Reflux (GERD) Y Cancer N Endometriosis N High Cholesterol N Liver Disease N Kidney or Bladder Problems N Thyroid Problems N GI Problems Y Acne Y Eating Disorder N Anemia N Ovarian Cancer N Diabetes N Blood Transfusions N Seizures/Epilepsy N Abuse/Domestic Violence N Asthma Y Hepatitis N Heart Disease N Pre-Eclampsia N Osteoporosis N Gynecological History Statement/Question Response Abnormal Pap Y Flow Light STIs/STDs N Age at Menarche 16 Current Control Method IUD Age at First Child 21 Sexually Active? Y Menses Monthly N Sexual Problems? N LMP Unknown Desired Control Method Unknown Obstetrics History GPAL:G 2 P 2 0 0 2 Type Value Multiple Births 0 Full Term 2 Induced 0 Spontaneous 0 Premature 0 Living 2 Ectopics 0 Total 2 Past Encounters Encounter ID Performer Location Encounter Start Date Encounter Closed Date Diagnosis/Indication Diagnosis SNOMED-CT Code Diagnosis ICD10 Code Diagnosis Note [id number] [facility] ([facility] [address] [place] [address] 04/09/2017 10:20:58 04/10/2017 15:47:02 Gynecologic examination 03917279 Z01.419 Z11.51 Exposure t o sexually transmissible disorder 209146647 Z20.2 Removal of intrauterine device 64486760 Z30.432 Family tiffany nning surveillance 958483409 Z30.09 [id number] ROSEMARIE Ac [address] [place] [address] 11/18/2018 14:25:21 11/21/2018 11:20:44 Furunculosis of skin AND/OR subcutaneous tissue 51841809 L02.92 [facility] drainedwan oliva to review culture resultsrec ords release signed Screening for disorder 142048359 Z13.9 recently had babypendin g follow up with cover remover in 2monthsrou jono labs ordered Tobacco user 478735567 Z 72.0 1/2 pack x 10 yearssmoki ng cessation [id number] RICARDO WOODY [address] [place] [address] 06/09/2020 11:04:08 06/10/2020 13:12:54 Exposure to SARS-CoV-2 224399470 Z20.663 [id number] Shane Jackson MD [facility] (Adult Med) [address] [place] [address] 06/13/2024 10:58:10 06/17/2024 12:25:05 Abdominal bloating 573170348 R14.0 Possible ibs vs due to diverticul itis. Dicyclomin e for spasm, metamucil for bloating and mild constipati on, low fod diet Diverticulitis 602374982 K57.92 Somewhat unusual in her age, with hematochez ia. Possible colitis, Pt probably needs colonoscop y, Add metronidaz ole, stop nsaid, education Hematochezia 848441865 K 92.1 Cause unclear, possible hemorrhoid , colitis, or diverticul ar disease. Gi referral [id number] Shane Jackson MD [facility] (Adult Med) [address] [place] [address] 06/19/2024 16:50:00 06/20/2024 08:20:17 Abdominal bloating 221603021 R14.0 Possible ibs vs due to diverticul itis. Dicyclomin e for spasm, metamucil for bloating and mild constipati on, low fod diet Diverticulitis 010186241 K57.92 Somewhat unusual in her age, with hematochez ia. Possible colitis, Pt probably needs colonoscop y, Tolerated Flagyl well. Pain resolved. education Hematochezia 830514158 K 92.1 Cause unclear, possible hemorrhoid , colitis, or diverticul ar disease. Gi referral pending Health Concerns Section Related Observation LastModified by Organization Detai ls LastModified Time None Recorded Concern Status LastModified by Organization Details LastModified Time None Recorded Advance Directives Directive N: Payers Encounter Date Sequence Insurance Name Policy Number Policy Mayo Covered Member ID Mayo Member ID Guarantor Name 04/09/2017 1 [facility] PRIOR TO 2021 (MEDICAID REPLACEMENT - HMO) Libby Joel [id number] Libby Joel 11/18/2018 1 [facility] (MEDICAID HMO) [id number] Libby Joel [id number] Libby Joel 06/09/2020 1 [facility] (MEDICAID HMO) [id number] Libby Joel [id number] Libby Joel 06/13/2024 1 [facility] (MEDICAID HMO) [id number] Libby Joel [id number] Libby Joel 06/19/2024 1 [facility] (MEDICAID HMO) [id number] Libby Joel [id number] Libby Joel Notes Date Note Type Note Provider Name and Address Organization Details Recorded Time 04/09/2017 text/html Annual GYNReport ed bypatient.History:no gynecologic complaints Menstrual cycle:Normal menses Urinary symptoms:No hematuria; No incontinence Vulva:No genital lesion Vagina:Normal vaginal discharge Breast:No breast pain; No breast lump; No nipple discharge Current Contraception:Transder mal patch Sexual complaints:No sexual complaints; No pain during intercourse; Normal libido Menopausal Symptoms:No menopausal symptoms; Normal vaginal lubrication Psychological symptoms:No depression; No anxiety; No PMDD Preventive measures:Encourage self breast examination; Encourage regular exercise; Encourage no tobacco use; Followed with yearly pap smears 26 y/o, wf, , w/ PMH of HPV, who 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 Lion gloria [facility] 04/09/2017 13:21:07 11/18/2018 text/html Rash/Skin LesionReported bypatient.Location:axi lla; left axilla abscess Quality:painful Duration:10/30/18Notes[facility] 10 [facility] Helen Canchola PA-C Attn: [address] [place], [address], [facility] 11/20/2018 10:34:59 06/09/2020 text/html COVID ScreeningReported bypatient.Onset/Durati on of fever:no fever Associated Symptoms:no cough; no shortness of breathCOVID-19 Symptoms March 2020Reported bypatient.COVID-19 Signs and Symptomscough resolved; fever resolved; shortness of breath resolved; chills resolved; repeated shaking with chills resolved; muscle pain resolved; headache resolved; sore throat resolved; loss of taste or smell resolved; vomiting or diarrhea resolved; fatigue resolved; anorexia resolved Contacts and Exposureclose contact with a confirmed or suspected case of COVID-19 Associated Symptoms:no sputum production; no wheezing; no runny nose; no vomiting; no diarrhea; no body aches; no nausea; no change in mental status; no hypotension; no tachycardia pt admits to exposure on sunday denies symptoms MINAL BUTT NP Attn: [address] [place], [address], [facility] 06/09/2020 15:54:04 06/13/2024 text/html 33 yo female her e to establish care for post hospital visit. Pt admitted to [facility] 06/09-06/11/2024 for acute left lower abdomen pain. Ct showed acute diverticulitis. Pt treated with iv antibiotics and discharged on Augmentin. Pt had similar episode one month ago treated at [facility] for several days with same discharge diagnosis. Pt continues to experienced moderate daily LLQ pain with bloating and nausea. Pt stated abd pain started 1 year ago associated with intermittent blood in stool but has increased in frequency and pain for past several weeks. 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 electrical unit rebuilder evaluation neg. No vaginal symptom or dysuria. No trauma. Pain worse with movement and sometimes food. Pain decreased with bm and flatus.Pt denies constipation or diarrhea. No h/o lactose intolerance. Mother with h/o diverticulitis. Father from congestive heart failure. Abd/pelvic ct also showed hepatic steatosis and gallstone (1). Pt thinks she may have Crohn's disease. No weight loss or family hx of inflammatory bowel disease. Cbc showed normocytic anemia. Pt has IUD with minimal bleeding. Pt has intermittent abdominal bloating. Pt denies stress. No weight loss, or fever. Shane Jackson MD Attn: [address] [place], [address], [facility] 06/13/2024 15:21:31 06/19/2024 text/html Pt is doing bett er with treatment. She has less bloating. Pt still awaiting gi evaluation for hematochezia. Diverticulitis controlled. Shane Jackson MD Attn: Accounting[address] [place], [address], [facility] 06/19/2024 21:26:47 OBGyn Episode Ob Episode Information Episode Created Date Number of Fetuses Patient Bloodtype Patient rh Status Prepregnancy Weight lbs Domestic Partner Domestic Partner Phone Father Name [employer] Supervisor Status 06/13/20 24 1 CLOSED Fetus Data First Name Last Name Admitted to NICU Weight (g) Sex Living Outcome Pediatric Complications Fetus ID Race Codes Race Delivery Type F Full Term [id number] Phil Calculation Initial Phil Date Initial Exam Date Initial Exam Provider Initial Ultrasound Date Last Menstrual Period Date Ultra Sound Weeks Gestation 0 Eighteen To Twenty Week Phil Update Ultra Sound Date Fundal Height At Umbil Quickening Date Ultra Sound Latest Weeks Gestation Final Phil Confirmed By Final Phil Confirmed Date Final Phil Date Ultra Sound Latest Days Gestation 0 0 Menstrual History Last Menstrual Date Menses Monthly On Bcp Conception Prior Menses Frequency Hcg Plus Date Menarche Onset Age Delivery Information Delivery Date Delivery Type Labor Anesthesia Weeks Gestation Incision Type Labor Labor Length Hrs Delivered By Post Complications Tubal Sterilization Discharge Date Comments 8 38 Discharge Information Feeding Method Contraceptive Method Maternal HG B and HCT Levels Ob Episode Information Episode Created Date Number of Fetuses Patient Bloodtype Patient rh Status Prepregnancy Weight lbs Domestic Partner Domestic Partner Phone Father Name [employer] Supervisor Status 04/09/20 17 1 CLOSED Fetus Data First Name Last Name Admitted to NICU Weight (g) Sex Living Outcome Pediatric Complications Fetus ID Race Codes Race Delivery Type Full Term [id number] Phil Calculation Initial Phil Date Initial Exam Date Initial Exam Provider Initial Ultrasound Date Last Menstrual Period Date Ultra Sound Weeks Gestation 0 Eighteen To Twenty Week Phil Update Ultra Sound Date Fundal Height At Umbil Quickening Date Ultra Sound Latest Weeks Gestation Final Phil Confirmed By Final Phil Confirmed Date Final Phil Date Ultra Sound Latest Days Gestation 0 0 Menstrual History Last Menstrual Date Menses Monthly On Bcp Conception Prior Menses Frequency Hcg Plus Date Menarche Onset Age Delivery Information Delivery Date Delivery Type Labor Anesthesia Weeks Gestation Incision Type Labor Labor Length Hrs Delivered By Post Complications Tubal Sterilization Discharge Date Comments 2 Regional-Ep idural 38 false Discharge Information Feeding Method Contraceptive Method Maternal HG B and HCT Levels
--- OUTSIDE RECORDS SUMMARY | 2024-12-03 23:00 | XMS_ITS | Data Portability ---
Author Organization [facility], [facility] Address [address] [place] [address] Assessment No assessment recorded. Plan of Treatment Reminders Order Date Submit Date Provider Last Modified By Organization Details Last Modified Time Details Appointments None recorded. Lab None recorded. Referral physical therapist referral - & Occupationa l therapyNEW PT REFERRALcer vicalgia, myofascial pain, radic [facility], [address], [place], [address], 09:56:56 Procedures None recorded. Surgeries None recorded. Imaging None recorded. Medication Orders tizanidine 4 mg tablet 2021 [id number], [address], [place], [phone], 18:04:46 Patient TargetsNo targets recorded. Patient Instructions Encounter Date Encounter Id Patient Instructions Last Modified By Organization Details Last Modified Time 09/19/2022 [id number] Screening, Brief Intervention, and Referral to Treatment* [email or web address] Not available 09/19/2022 18:06:32 nutrition [email or web address] Not available 08/27 18:06:32 exercise [email or web address] Not available 08/27 18:06:32 un estilo de vid a brittany: instrucciones de cuidado - [A healthy lifestyle: care instructions] [email or web address] Not available 09/19/2022 18:06:32 A healthy lifestyle: care instructions Not available 09/19/2022 18:06:32 Reason for Referral Physical Therapist Referral for Neck pain & Occupational therapyNEW PT REFERRALcervicalgia, myofascial pain, radic Referring Physician: Marlene Tam, Family Medicine, Encounter Date: 09/19/2022 Results Created Date Observation Date Name Description Value Unit Range Abnormal Flag Note LastModifiedBy Organization Detail LastModifiedTime 09/19/2009/19/2022 Scree rubén, Brief Inter venti on, and Refer ral to Treat ment* In the past 2 weeks, have you felt nervous, anxious, or on edge? Not at all Not Available [address], [address], 09/19/2022 17:32:30 09/19/2009/19/2022 Scree rubén, Brief Inter venti on, and Refer ral to Treat ment* In the past 2 weeks, have you been unable to stop or control worrying? Not at all Not Available [address], [address], 09/19/2022 17:32:30 09/19/20 22 09/19/2022 Scree rubén, Brief Inter venti on, and Refer ral to Treat ment* How many times in the last year have you used drugs/prescr iption meds for non-medical reasons? None Not Available [address], [address], 09/19/2022 17:32:30 09/19/20 22 09/19/2022 Scree rubén, Brief Inter venti on, and Refer ral to Treat ment* How many times in the past year have you had 4 drinks in 1 day? 0 Not Available [address], [address], 09/19/2022 17:32:30 09/19/2009/19/2022 Scree rubén, Brief Inter venti on, and Refer ral to Treat ment* Positive or Negative? negati ve Not Available [facility] [address], [address], 09/19/2022 17:32:30 09/19/20 22 09/19/2022 Scree rubén, Brief Inter venti on, and Refer ral to Treat ment* BH Referral? Not needed at this time Not Available [facility] [address], [address], 09/19/2022 17:32:30 Result Notes None recorded. Problems No Known Problems Medical Equipment None Reported. Allergies No known drug allergies Medications Name Sig Start Date Stop Date Status Note LastModified by Organization Details LastModified Time tizanidine 4 mg tablet TAKE 1/2 TO 1 TABLET BY MOUTH THREE TIMES DAILY NEEDED FOR MUSCLE PAIN OR SPASM active Not Available Not Available No t Available clindamyci n HCl 150 mg capsule 09/19 completed Not Available Not Available Not Available cephalexin 500 mg capsule TAKE ONE CAPSULE BY MOUTH THREE TIMES DAILY FOR 10 DAYS 09/19 completed Not Available Not Available Not Available ibuprofen PRN active Not Available Not Ananya ilable Not Available Mirena active placed Not Available Not Available Not Available Vitals Date Recorded Body height Body mass index (BMI) Body weight Body temperature Respiratory rate Heart rate Oxygen saturation Oxygen saturation in Arterial blood by Pulse oximetry Systolic blood pressure Diastolic blood pressure Provider Name and Address Organization Details Last Updated DateTime 157.48 cm 22.9 kg/m2 18096.0 5 g 98.1 [degF] 20 /min 83 /min 98 % 98 % 103 mm[Hg] 70 mm[Hg] Anna Adorno CMA [facility] 17:36:11 Social History Question Answer Notes LastModified by Organizat ion Details LastModified Time Tobacco Smoking Status Current Every Day Smoker Anna Adorno CMA [facility] 09/19/2022 17:33:37 What Is Your Level Of Alcohol Consumption? Moderate Information not available 09/19/2022 What Is Your Level Of Caffeine Consumption? Heavy Information not available 09/19/2022 Which Illicit Or Recreational Drugs Have You Used? MJ Information not available 09/19/2022 PRAPARE Screening Completed On: 09/19/2022 Information not available 09/19/2022 What Was The Date Of Your Most Recent Tobacco Screening? 09/19/2022 Information not available 09/19/2022 How Much Tobacco Do You Smoke? 0.5 PPD Information not available 09/19/2022 Do You Use Any Illicit Or Recreational Drugs? Yes Information not available 09/19/2022 Has Tobacco Cessation Counseling Been Provided? Yes Information not available 09/19/2022 On What Date Was Tobacco Cessation Counseling Provided? 09/19/2022 Information not available 09/19/2022 Do You Or Have You Ever Used Any Other Forms Of Tobacco Or Nicotine? No Information not available 09/19/2022 Sex: Unknown Functional Status None recorded. Mental Status None recorded. Family History Nothing Reported. Medical History No medical history recorded. Gynecological History Statement/Question Response Have you had a Pap Smear within the last 3 or 5 years? Y Date of LMP Do you receive HAZARDOUS WASTE TECHNICIAN Services within [facility]? N Do we have a copy of your most recent Pa p Smear? N Obstetrics History GPAL:G 0 P 0 0 0 0 Immunizations Vaccine Type Date Status Note Provider Nam e and Address Organization Details Recorded Time OPV 6 completed [facility] 17:35:56 MMR 6 completed Anna Adorno HORSE BREAKER null, [facility] 09/19/2022 17:35:56 Hib, unspecified formulation 6 completed Anna Adorno HORSE BREAKER null, [facility] 09/19/2022 17:35:56 Hep B, adolescent or pediatric 6 completed [facility] 17:35:56 DTP 2 completed Anna Kyree, HORSE BREAKER null, [place] - [facility] 09/19/2022 17:35:56 Hib, unspecified formulation 2 completed Anna Kyree, HORSE BREAKER [place] [facility] 09/19/2022 17:35:56 Hep B, adolescent or pediatric 6 completed Anna Kyree, HORSE BREAKER [place], [place] [facility] 09/19/2022 17:35:56 Td (adult), 2 Lf tetanus toxoid, preservative free, adsorbed 2 completed Anna Kyree, HORSE BREAKER null, [place] - [facility] 09/19/2022 17:35:56 DTP 2 completed Anna Kyree, HORSE BREAKER null, [place] - [facility] 09/19/2022 17:35:56 DTP 6 completed Anna Kyree, HORSE BREAKER null, [place] - [facility] 09/19/2022 17:35:56 DTP 2 completed Anna Kyree, HORSE BREAKER [place], [place] [facility] 09/19/2022 17:35:56 Hep B, adolescent or pediatric 6 completed Anna Kyree, HORSE BREAKER [place], [place] [facility] 09/19/2022 17:35:56 OPV 6 completed Anna Kyree, HORSE BREAKER [place] [facility] 09/19/2022 17:35:56 MMR 6 completed Anna Kyree, HORSE BREAKER [place] [facility] 09/19/2022 17:35:56 Hib, unspecified formulation 2 completed Anna Kyree, HORSE BREAKER [place] [facility] 09/19/2022 17:35:56 OPV 2 completed Anna Kyree, HORSE BREAKER [place] [facility] 09/19/2022 17:35:56 Hib, unspecified formulation 2 completed Anna Kyree, HORSE BREAKER [place] [facility] 09/19/2022 17:35:56 Rho(D)-IG 8 completed [facility] 09/19/2022 17:35:56 OPV 2 completed Anna Adorno CMA null, [facility] 09/19/2022 17:35:56 DTP 6 completed OLIVIER Ortiz, [facility] 09/19/2022 17:35:56 Past Encounters Encounter ID Performer Location Encounter Start Date Encounter Closed Date Diagnosis/Indication Diagnosis SNOMED-CT Code Diagnosis ICD10 Code Diagnosis Note [id number] Marlene Tam APRN [facility] [address] [place] [address] 09/19/2022 17:17:07 09/21/2022 12:41:57 Normal weight 49197772 Z68.22 Body Mass Index (BMI) 20.0-24.9, adult Dietary ma nagement surveillance 367503725 Z71.3 Exercises education, guidance, and counseling 214732784 Z71.82 Screening for disorder 915027020 Z13.9 Cervical radiculopathy 65582624 M54.12 Myofascial pain 82239836 9 M79.10 Neck pain 06950747 M54.2 She needs to establish with a pcp for eval. Will order pt and muscle relaxer. She can continue the ibuprofen. RTC 8 weeks with a provider. Health Concerns Section Related Observation LastModified by Organization Detai ls LastModified Time None Recorded Concern Status LastModified by Organization Details LastModified Time None Recorded Advance Directives Directive None Recorded Payers Encounter Date Sequence Insurance Name Policy Number Policy Mayo Covered Member ID Mayo Member ID Guarantor Name 09/19/2022 1 [facility] - [facility] [facility] (MEDICARE - MEDICAID REPLACEMENT HMO) [id number] Libby Maldonado [id number] Libby Maldonado Notes Date Note Type Note Provider Name and Address Organization Details Recorded Time 09/19/2022 text/html Patient does not have a provider in this area,Hit her head on a cabinet and twisted her neck and her back and has continued with pain since. She noticed swelling in the neck and down to the shoulder. Imaging was negative from the hospital. She moved to the area about 2 yrs ago, she would like to establish with someone for pcp. Will have her do that on her way out. She has been having headaches, some before but it is worse now. Sherif e sob with overworking neck or back. Denies numbness and tingling in the right hand now but did have it initially. The arm felt weak initially but is feeling better now. Did have decreased rom initially.Denies dizziness, n/v/d now but was having nausea until about 3 days ago. Denies chest pain. 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. Reviewed hospital records. Marlene Tam APRN [address] [place] [address], [place], [address], [facility] 09/19/2022 18:04:43 OBGyn Episode No OBEpisode recorded.
--- OUTSIDE RECORDS SUMMARY | 2024-12-03 23:00 | XMS_ITS | Encounter Summary ---
Author Organization [facility] Address [address] [place] [place] [address] Care Team Providers Care Manufacturing Supervisor 2Nd Shift Name Role Phone [facility] ([facility]) Primary Care Provi frankie Reason for Visit * Reason Comments Lesions Check moles on neck and face Encounter Details Date Type Department Care Team (Late st Contact Info) Description 05/01/2019 3:00 PM CDT Office Visit [facility] [address] [place] [address] Leonard Payton MD [address], [place] [address] Neoplasm of uncertain behavior of skin (Primary Dx); Solar lentiginosis; Melanocytic nevi of trunk Social History Tobacco Use Types Packs/Day Years Used Date Smoking Tobacco: Every Day Smokeless Tobacco: Never Alcohol Use Standard Drinks/Week Comments Yes 0 (1 standard drink = 0.6 oz pur e alcohol) Rarely Sex and Gender Information Value Date Recorded Sex Assigned at Not on file Gender Identity Not on file Sexual Orientation Not on file documented as of this encounter Patient Instructions * Patient Instructions* Leonard Payton MD - 05/01/2019 3:52 PM CDT Thank you for coming to your appointment today. Please plan follow up in 12 months. WOUND CARE INSTRUCTIONS If you have a bandage, please leave your bandage on overnight. Starting the next day, cleanse your wound with mild soap and water and gently pat dry. Avoid soaking in bath or dishwater. Apply petroleum jelly to the wound after cleaning the wound and, as needed, throughout the day to keep the area moist and prevent a scab from forming. Cover the wound with a Band-Aid or appropriate dressing. For pain, you may take acetaminophen (extra or regular strength), 2 tablets every four hours as needed for pain. Do not exceed the recommended limit on the directions. Avoid ibuprofen containing products or related products(Motrin, Advil, Aleve, aspirin, etc) unless prescribed by your physician. Avoid any trauma of activity that may open your surgical wound. If you have not received your biopsy results in two weeks, contact your physician. Notify your physician if you have: Bleeding that does not stop after 20 minutes of continuous pressure. Yellowish/greenish discharge from the treated area Increasing tenderness or pain Warmth of the area and/or fever over 101 F Red streaks up the arm or leg close to the treated area For skin cancer prevention: We recommend DAILY sun protection and MONTHLY self skin exams. Examine your moles for any changes. Alert us of any moles that are asymmetrical, have irregular borders, more than one color in a mole, larger than end of a pencil eraser, or anything that is changing over time (A-B-C-D-Es of Melanoma). See below for sun screen recommendations. ?? SUNSCREENS UVA and UVB PROTECTION ? Sunlight consists of two types of light that can cause or worsen most skin problems: ?? UVA (ultraviolet A) Brown spots Wrinkles Aging Rosacea Less variation with seasons All year round All day strong No rating system available Passes through glass and clouds ?? UVB (ultraviolet B) Skin cancers Sunburn Tanning Strongest in summer Peak hours 10am to 2pm SPF rates UVB protection ? Sunscreens that block both UVA and UVB light contain: Zinc Oxide (should contain at least 4% zinc oxide) Titanium Dioxide Parsol or Avobenzone (additives improve stability of Avobenzone) There are other UVA blocking ingredients but they are not as complete as these three. ?? Tips/Suggestions SPF of 30 or higher Zinc Oxide or other UVA block such as Helioplex or Anthelios in product Remember there is no safe UV light???so there is no such thing as a safe suntan. Apply sunscreen daily (even in winter and on cloudy days) and reapply every 2 to 4 hours depending on activity. Approximately one ounce (a shot glass) is necessary to adequately cover the entire body. documented in this encounter Progress Notes * Jacobo Sanz MD - 05/01/2019 4:00 PM CDT Patient seen and examined with Resident. Please see note for further details. I was present for thekey portions of any procedures performed. I confirm history, exam, assessment and plan with the following exceptions/additions: CC: eval lesions HPI: Has hx brown spots, madison on face, UE. Most present for years. Occ irritating lesions No active trt for brown spots. ROS: No recent relevant illnesses/fevers or other skin complaints except noted otherwise. Relevant past medical history, social history and family history were reviewed, no changes or remarkable points unless otherwise noted. Asthma PE: -as above Gen: Alert, oriented, NAD, affect appropriate, pleasant Skin: Exam of the face, eyelids, scalp, lips, neck, bilat upper extr including nails and digits, chest, back, abd, bilat lower extr examined and unremarkable unless otherwise noted below: -west to brown well defined macules on UE, face -exophytic papules: 7mm cheek, 6mm neck, 8mm neck Assessment/Plan Neoplasms -shave removal Actinic lentigines/solar lentiginosis, multiple nevi -benign, educ, reassurance -marker of chronic sun damage and increased risk for skin malignancy, yearly FBSE reasonable -sun protection Jacobo Sanz MD * Leonard Payton MD - 05/01/2019 3:51 PM CDT Chief Complaint Patient presents with ??? Lesions Check moles on neck and face HPI: Libby Maldonado a 28 year old female presents for skin exam. Concerns: Moles on neck and face - whole life - feels one on R cheek and L cheeks seem to be enlarging, one on L cheek darker and throbs - Also has mole on neck she scratched off, grew back Personal history of skin cancer: none, but admits to tanning bed use Allergies and medications were reviewed and verified. Past medical history, social history and family history were reviewed. ROS: As per HPI above. Patient denies fever, chills and night sweats. PE: No acute distress. Mood clear/affect appropriate. Alert and oriented. Mucous membranes moist. Sclera anicteric. Visible skin exam was conducted to include the scalp, face, lips/teeth, lids/conjunctiva, ears, neck, right and left hands and forearms and was normal with the following exceptions: - pink dome shaped papule L cheek - two skin colored papule R neck inf + superior - Multiple west to light brown macules on face, shoulders and arms A/P: Libby was seen today for lesions. Diagnoses and all orders for this visit: Neoplasm of uncertain behavior of skin - DERMATOPATHOLOGY - PROC SHAVING LESION REMAINDER BODY - PROC SHAVING LESION FACE/FACIAL - Shave removal (see procedure note) x 3 (R neck inf + sup, L cheek); nevi r/o atypia - Post-biopsy handout given - Wound care instructions reviewed - Will call patient with biopsy results. If intervention is indicated, will make arrangements at that time Solar lentiginosis - Benign, reassurance - Counseled on importance of daily sun protection (Broad spectrum, SPF >30), monthly self skin exams - Reviewed ABCDEs of melanoma - Sun screen hand out provided Tanning bed use - Counseled cessation, annual FBSE RTC in 1 year Leonard Payton MD Dermatology Resident, PGY-3 documented in this encounter Plan of Treatment Pending Results Name Type Priority Associated Diagnoses Date /Time PROC SHAVING LESION REMAINDER BODY Procedures Routine Neoplasm of uncertain behavior of skin 05/01/2019 4:42 PM CDT PROC SHAVING LESION FACE/FACIAL Procedures Routine Neoplasm of uncertain behavior of skin 05/01/2019 4:41 PM CDT documented as of this encounter Procedures Procedure Name Priority Date/Time Associated Diagnosis Comments KS SHAV SKIN LES <5MM REMAINDR BODY Routine 05/01/2019 4:42 PM CDT Neoplasm of uncertain behavior of skin KS SHAV SKIN LES <5MM FACE,FACIAL Routine 05/01/2019 4:41 PM CDT Neoplasm of uncertain behavior of skin DERMATOPATHOLOGY Routine 05/01/2019 12:0 0 AM CDT Neoplasm of uncertain behavior of skin documented in this encounter Results * DERMATOPATHOLOGY (05/01/2019 12:00 AM CDT) Case Report Dermatopathology Report ? Case: [id number] ? Authorizing Provider: ??Jacobo Sanz MD ? Collected: ? 05/01/2019 12:00 AM ? Ordering Location: ? [facility] ?Received: ?05/02/2019 10:13 AM ? Dermatology ? Pathologist: ? Carlota Poon MD ? Specimens: ?? A) - Skin, left cheek ? B) - Skin, right neck sup ? C) - Skin, right neck inf ? 3:17 PM [facility] Final Diagnosis Specimen A. SKIN, left cheek: COMPOUND MELANOCYTIC NEVUS (D22.39) Specimen B. SKIN, right neck sup: INTRADERMAL MELANOCYTIC NEVUS (D22.4) Specimen C. SKIN, right neck inf: COMPOUND MELANOCYTIC NEVUS (D22.4) 3:17 PM [facility] Clinical History A-C: Nevus R/O atypia. 3:17 PM [facility] Gross Description Specimen A: Received is one formalin filled container labeled with the patient's name and designated left cheek. The specimen consists of a shave biopsy measuring [id number], bisected. Jar 0. Specimen B: Received is one formalin filled container labeled with the patient's name and designated right neck sup. The specimen consists of a shave biopsy measuring [id number], bisected. Jar 0. Specimen C: Received is one formalin filled container labeled with the patient's name and designated right neck inf. The specimen consists of a shave biopsy measuring [id number], bisected. Jar 0. 3:17 PM [facility] Microscopic Description Specimen A. SKIN, left cheek: There are nests of melanocytes at the dermal-epidermal junction and within the dermis. Specimen B. SKIN, right neck sup: There are nests of cytologically bland melanocytes within the dermis that mature with depth. Specimen C. SKIN, right neck inf: There are nests of melanocytes at the dermal-epidermal junction and within the dermis. 3:17 PM [facility] Disclaimer An external and internal positive and negative controls are appropriate for the histochemical, immunohistochemical and immunofluorescence stain(s) in this case (if any), except where stated explicitly. The performance characteristics of the stain(s) cited in this report were developed and its performance characteristic determined by the Dermatopathology Laboratory at [facility], directed by Dr. Perry Munroe. These tests need not be, and therefore are not, approved by the [place] Food and Drug Administration. The tests are used for clinical purposes. Billing Codes Specimen Charges Stain Charges 93970 [id number] 1 1 1 9 3:17 PM CDT [...] LAB - PATHOLOGY/CYTO LOGY ORDERABLES DERMATOPATHOLOGY LABORATORY [facility] - Department of Dermatology [address] [place] [address] [address] [phone] documented in this encounter Visit Diagnoses Diagnosis Neoplasm of uncertain behavior of skin- Primary Solar lentiginosis Other dyschromia Melanocytic nevi of trunk Benign neoplasm of skin of trunk, except scrotum documented in this encounter Care Teams Manufacturing Supervisor 2Nd Shift Relationship Specialty Start Date End Date [facility] ([facility]) [address] [place] [address] PCP - General 04/26/19 documented as of this encounter
--- OUTSIDE RECORDS SUMMARY | 2024-12-03 23:00 | XMS_ITS | Referral Summary ---
Author Organization [facility] Address [address] [place] [address] Care Team Providers Care Executive Creative Director Name Role Phone [facility] ([facility]) Primary Care Provi frankie Source Comments [facility],non-owned Affiliates and Associated Physician Practices is amultiple site organization consisting of ambulatory clinics and hospital sitesin [place], [place], [place] and [place]. This disclosure is being madepursuant to the Care Everywhere program and may not contain all information available regarding this patient. Last updated 18.[facility] Allergies No known active allergies Medications Be [...] 07/25/2016 4:20 PM CDT Plan of Treatment Not on file Care Teams Executive Creative Director Relationship Specialty Start Date [facility] ([facility]) [address] [place] [address] PCP - General 04/26/19
--- NOTE | 2024-12-09 13:49 | PC.NURSE ---
Report to the Outpatient Waiting Room, entrance under the green pavilion located off [facility], at time _1100_ on date _[phone]_. Planned Procedure Time: _1pm_.? Time changes happen often and if your time is changed the preop area will call you the afternoon before. - You and your visitor will be asked to self-screen and do not enter if you have any COVID symptoms. Please call surgeon if you need to reschedule. - A mask is optional within the hospital at this time. Patients may have clear liquids (water, carbonated beverages, clear teas, apple juice) until 3 hours prior to surgery with a maximum of 20 ounces. - No food from midnight until time of surgery and no smoking. This includes no chewing gum, candy or mints. Take only the following medications with a SIP of water on the morning of surgery: ___None____ DO NOT STOP ANY OF YOUR OTHER PRESCRIPTION MEDICATIONS PRIOR TO SURGERY EXCEPT THE FOLLOWING Medications to discontinue per physician ____None Please no make-up, nail bengali, hairspray, perfume, deodorant, or body powder the day of surgery.? No jewelry (including any body piercings) or valuables the day of surgery, leave them at home.? Please take a shower or bath the night before, or the morning of, surgery with an antibacterial soap.? Wear comfortable, loose fitting clothing.? - Jewelry must be removed prior to entering the operating room.? Rings and piercings that are not removed may be cut off. - The hospital will not accept responsibility for valuables.? - Please leave all valuables, including medications, at home the day of surgery. If you are going home after surgery, a licensed catering driver must drive you home.? - NO public transportation without another adult if you receive anesthesia. - We recommend that an adult stay with you for 24 hours following discharge. - We also recommend that you do not drive, make important decision, drink alcoholic beverages, or take any drugs that were not prescribed by your health care provider for at least 24 hours after your discharge time. Follow any additional instructions given to you from your surgeon. Telephone instructions given to _Libby__and asked if any additional questions and then verbalized understanding. Patient advised to call surgeon office or pre surgery nurse liaison [phone] if any additional questions.
--- NOTE | 2024-12-16 15:11 | P.SS_ITS ---
Same Day Admit/Disch: HPI History of Present Illness Chief complaint: Needs Port-A-Cath, malig neoplasm sigmoid colon Narrative: Libby Maldonado is a 34 year old female who underwent resection of perforated sigmoid colon cancer on 10/13/2024. She has healed from this surgery but has been recommended to proceed with chemotherapy since the tumor had ruptured. She is taken to surgery now for placement of a Port-A-Cath vascular access for chemotherapy. [facility] Past Medical History Medical History (Updated 12/18/24 @ 14:59 by Aguilar Lang MD) Colon cancer Hypotension Fecal peritonitis Colocutaneous fistula Diverticulitis of large intestine with abscess Anxiety Asthma in childhood, resolved Surgical History Surgical History History of colon resection 09/08/2024 - Sigmoid colon resection with hand-sewn end-to-end anastomosis, drainage abdominal wall abscess H/O gynecological procedure Mirena IUD insertion Family History Family History Mother Diverticulitis Father Heart problem Social History Social History Years smoked: 15 Smoking status: Current every day smoker Tobacco type: cigarettes Second hand tobacco smoke exposure: Yes Alcohol intake: current Drinks per week: 4 Substance use: current Substance use type: marijuana Other substance usage details: Daily Current Housing: Decline to Answer Concerned About Future Housing: Decline to Answer Difficulty Paying Gas/Electric Bills: Decline to Answer Difficulty Paying for Meds: Decline to Answer Currently Unemployed: Decline to Answer Education: Decline to Answer Difficulty w/ Childcare or Family Care: Decline to Answer Living arrangements: with family Occupation/Education: occupation Gender identity (if verbalized by the patient): Female Spiritual care concerns: No Same Day Admit/Disch: Med Pre-admit Medications Home Medications ?Medication ?Instructions ?Recorded ?Confirmed ?Type ferrous sulfate 325 mg (65 mg 325 mg PO BID #60 tabs 09/19/24 11/13/24 Rx iron) tablet,delayed release oxycodone-acetaminophen 5 mg-325 0.5 - 1 tablet PO Q4H PRN pain #10 12/18/24 Rx mg tablet (Percocet) tabs Review of Systems Review of Systems All systems reviewed & are unremarkable except as noted in HPI and below (HPI) Exam Const: General: comfortable, no acute distress, alert and awake HENMT: Head: normocephalic and atraumatic Mouth: Yes Normal oral and palatal mucosa present Eyes: Conjunctivae: conjunctivae normal Pupils: Equal, round and reactive pupils present EOM: EOMs intact bilaterally Neck: Neck: normal visual inspection, no lymphadenopathy and nontender Chest: Chest palpation & inspection: normal inspection of the chest, no tenderness and No rash Resp: Effort & Inspection: normal respiratory effort Auscultation: clear to auscultation bilaterally Cardio: Rate: regular rate Rhythm: regular rhythm Heart sounds: no gallops, no murmurs and no rubs GI: Inspection: non-distended and scar (Well-healed midline scar, left lower quadrant scar) GI Palp: Yes Soft to palpation, No Tenderness to palpation present (GI), No Hepatomegaly present and No Splenomegaly present Skin: Lesions: no lesions Rashes: no rashes Neuro: General: no focal motor deficits and CN's II-XI intact bilaterally Cranial nerves: Yes Equal, round and reactive pupils present, Yes Bilaterally intact EOM present, Yes facial symmetry and Yes Midline tongue present Sp eech: normal speech Motor exam (neuro): 5/5 motor strength present throughout and Motor abnormalities not present Extrem: General: no clubbing, cyanosis or edema and edema Psych: Affect: normal affect Thought process: Normal thought process present Insight: Good insight present (Psych) DS: Summary Time Spent with Patient Time attestation: Total time spent providing and/or coordinating discharge services: DS: Admitting Diagnosis Discharge Date 12/18/2024 Admitting Diagnosis * Stage IIB perforated sigmoid colon cancer-status post resection and anastomosis 09/12/2024. * Inadequate venous access for chemotherapy-plan to proceed with placement of Port-A-Cath under fluoroscopy and using ultrasound. The procedure has been discussed with the patient including the benefits, risks, alternatives. All questions were answered. She understands and wishes to go ahead. DS: Discharge Diagnosis Discharge Diagnosis (1) Admission for fitting of Port-A-Cath: Code(s): Z45.2 - Encounter for adjustment and management of vascular access device Status: Acute Assessment and Plan: Left internal jugular Port-A-Cath placed 12/18/[address] Lang (2) Adenocarcinoma of sigmoid colon: Code(s): C18.7 - Malignant neoplasm of sigmoid colon Status: Chronic Discharge Plan Discharge Patient Disposition: Home, Self-Care Discharge Instructions: Medications: Patient to resume all previous home medication Prescriptions to be given to patient at discharge Treatments: May bathe or shower tomorrow. May return to work or driving in 24 hours unless taking narcotic pain medications Follow-up with medical oncologist for chemotherapy. See Dr. Lang in 2-3 weeks for follow-up check Patient Language: Indonesian Stand Alone Forms: General Discharge Instructions Follow-up/Referrals: Aguilar Lang MD [Physician] - 2 Weeks Discharge Medications: New oxycodone-acetaminophen [Percocet] 5-325 mg tablet 0.5 - 1 tablet PO Q4H PRN (Reason: pain) Qty: 10 0RF Continued ferrous sulfate 325 mg (65 mg iron) Tablet,Delayed Release (Dr/Ec) 325 mg PO BID Qty: 60 2RF Other Ambulatory Orders: Complete Blood Count with Diff (Routine) Timeframe: 20241209 Location: Determined by Patient Ordered By: Aguilar Lang Prothrombin Time INR (Routine) Timeframe: 20241113 Location: Determined by Patient Ordered By: Aguilar Lang Partial Thromboplastin Time (Routine) Timeframe: 20241113 Location: Determined by Patient Ordered By: Aguilar Lang
--- NOTE | 2024-12-17 16:02 | P.PNAN_ITS ---
Anes - Initial Pre Proc Eval Procedure: Operation Date: 12/18/24 13:00 Proposed Procedures p Insertion Page Cath under Fluoroscopy - Aguilar Lang MD Date/Time: 12/17/24 16:02 Surgeon: Aguilar Lang MD Pre Op Diagnosis: Needs Port-A-Cath, malig neoplasm sigmoid colon Patient Data Age: 34 Gender: F Height: 1.57 m Weight: 48.2 kg Allergies Allergy/AdvReac Type Severity Reaction Status Date / Time No Known Allergies Allergy Verified 12/09/24 13:46 Home Medications ?Medication ?Instructions ?Recorded ?Confirmed ?Type ferrous sulfate 325 mg (65 mg 325 mg PO BID #60 tabs 09/19/24 11/13/24 Rx iron) tablet,delayed release Patient hx anesthesia problems: none Family hx anesthesia problems: none Results Review: All pre-operative results and documents have been reviewed as part of the pre- operative evaluation. [facility] Past Medical History Medical History (Updated 12/18/24 @ 13:06 by Slava Medeiros DO) Colon cancer Hypotension Fecal peritonitis Colocutaneous fistula Diverticulitis of large intestine with abscess Anxiety Asthma in childhood, resolved Surgical History Surgical History History of colon resection 09/08/2024 - Sigmoid colon resection with hand-sewn end-to-end anastomosis, drainage abdominal wall abscess H/O gynecological procedure Mirena IUD insertion Family History Family History Mother Diverticulitis Father Heart problem Social History Social History Years smoked: 15 Smoking status: Current every day smoker Tobacco type: cigarettes Second hand tobacco smoke exposure: Yes Alcohol intake: current Drinks per week: 4 Substance use: current Substance use type: marijuana Other substance usage details: Daily Current Housing: Decline to Answer Concerned About Future Housing: Decline to Answer Difficulty Paying Gas/Electric Bills: Decline to Answer Difficulty Paying for Meds: Decline to Answer Currently Unemployed: Decline to Answer Education: Decline to Answer Difficulty w/ Childcare or Family Care: Decline to Answer Living arrangements: with family Occupation/Education: occupation Gender identity (if verbalized by the patient): Female Spiritual care concerns: No Anes - Eval Final PreProcedure Day of Procedure 12/17/24 16:02 Patient weight: normal Heart: regular rate and rhythm Lungs: clear to auscultation and normal air movement Airway: Mallampati scale class II Neurological: alert and oriented Last oral intake: >/= 8 hours ASA classification: III Emergent: no Anesthetic plan: proceed Anesthesia type and monitoring: general GIVS and standard monitoring Results Review: All pre-operative results and documents have been reviewed as part of the pre-o perative evaluation. Informed Consent: The patient's anesthetic plan and its attendant risks and benefits were discussed with the patient/family/POA. Questions were solicited and answers provided to the satisfaction of the patient/family/POA.
--- NOTE | ~2024-12-18 | XR_ITS ---
CHEST RADIOGRAPH CLINICAL HISTORY: PRUDENCE CATH INSERTION, POST-OP . COMPARISON: 09/19/2024 TECHNIQUE: Single portable view of the chest. FINDINGS Interval placement of a left sided (likely external) jugular vein port catheter, with the access site in the upper left neck and the tip projecting over the superior vena cava, just shy of the cavoatria l junction. The remainder of the cardiomediastinal silhouette is otherwise unremarkable. The lungs are clear. No left-sided pneumothorax. IMPRESSION: Left-sided port catheter in position, as detailed above. No focal infiltrate or effusion Reviewed, dictated and finalized at location A. [employer]URE CONSULTANT
--- NOTE | ~2024-12-18 | XR_ITS ---
EXAMINATION: XR fl guide central line place DATE: 12/18/2024 14:36 INDICATION: Port placement. TECHNIQUE: 2 intraoperative fluoroscopic views of the chest were obtained. I was not present. Fluoros copy exposure time was 3 minutes 6 seconds. COMPARISON: None. FINDINGS: There is a right internal jugular port with tip at superior cavoatrial junction. IMPRESSION: 1. Port tip at superior cavoatrial junction. Reviewed, dictated and finalized at location B. [employer]
[2024-12-18 11:18] LABS: Basophils Percent Auto 0.9 % (0.2-1.2); Eosinophils Absolute Auto 0.1 K/mm3 (0-0.3); Eosinophils Percent Auto 1.8 % (0-4.4); Hematocrit 37.2 % (37.0-47.0); Hemoglobin 11.1 g/dL (12.0-15.0); Immature Granulocyte Absolute 0.01 K/mm3 (0.00-0.031); Immature Granulocyte Percent A 0.2 % (0-0.5); Lymphocytes Absolute Auto 1.29 K/mm3 (0.9-3.2); Lymphocytes Percent Auto 28.9 % (18.3-44.2); Mean Corpuscular HGB Conc 29.8 g/dl (32-36); Mean Corpuscular Hemoglobin 25.6 pg (26-34); Mean Corpuscular Volume 85.7 fl (80-100); Mean Platelet Volume 10.5 fl (7.4-10.4); Monocytes Absolute Auto 0.3 K/mm3 (0.1-0.6); Monocytes Percent Auto 6.3 % (2.6-8.5); Neutrophils Absolute Auto 2.8 K/mm3 (1.3-6.7); Neutrophils Percent Auto 61.9 % (45.5-73.1); Platelet Count Result 265 k/mm3 (150-375); Red Blood Count 4.34 M/mm3 (4.2-5.4); Red Cell Distribution Width 14.8 % (11.5-14.5); White Blood Count 4.5 K/mm3 (4.5-10.0)
[2024-12-18 11:29] LABS: INR 0.9; Prothrombin Time 12.5 Seconds (11.1-14.7)
[2024-12-18 11:30] LABS: Partial Thromboplastin Time 25.5 Seconds (22.3-36.8)
[2024-12-18 11:37] LABS: Anisocytosis 1+; Hypochromasia 1+; Ovalocytes 1+; Platelet Estimate Adequate (Adequate); Schistocytes None Seen
--- NOTE | 2024-12-18 11:53 | WPDHPUPDATE1 ---
History and Physical Update Update Date/Time: 12/18/24 11:53 History and Physical has been reviewed, including an updated exam of the patient. There are NO changes in the patient's condition. Risks, benefits, and alternatives have been discussed and questions answered. Patient agrees to proceed with procedure.
[2024-12-18 12:06] VITALS: BP 107/74; PULSE 89; TEMP 36.4; O2SAT 100; BMI 20.7
[2024-12-18 12:14] LABS: BEDSIDEPREGUCG Negative (Negative)
[2024-12-18] MEDS: KETOROLAC 15 MG/ML VIAL (*BKC) IV PUSH (12:27)
[2024-12-18] MEDS: LACTATED RINGERS 1,000 ML 30 ML IV CONT (12:27)
[2024-12-18] MEDS: ceFAZolin 2 GM/D5W 50 ML 2 GM/50 ML BAG IVPB (13:30)
[2024-12-18] MEDS: HEPARIN SODIUM 1,000 UNITS/ML VIAL 1000 UNITS IV PUSH (13:59)
--- NOTE | 2024-12-18 14:46 | P.OP_ITS ---
Procedure Note - Detailed Date of Procedure 12/18/24 Pre-op Diagnosis Colon cancer, inadequate venous access Post-op Diagnosis Same Procedure Performed Placement left internal jugular port using ultrasound and under fluoroscopy Surgeon Aguilar Lang MD Medicare Coordinator [employer] [place] Anesthesia General (G IV S) and Local Indications Patient has history of perforated sigmoid colon cancer. Chemotherapy has been advised. She is taken to surgery now for placement of a Port-A-Cath to provide adequate vascular access for her chemotherapy. Findings None significant. Tip of Port-A-Cath was in the distal SVC right atrial junction Description of Procedure Patient was taken to surgery and anesthesia was introduced. The left neck and left upper chest were prepped and draped. The proposed left subclavian incision was marked on the skin. Local was infiltrated into the skin and the deeper subcutaneous tissues. Incision was made and then dissection was carried down through the subcutaneous to the pectoralis major fascia. The pectoralis fascia was divided and then a subfascial pocket was created in the caudal direction. A pocket was developed bloodlessly until it was of an adequate sized to place the Port-A-Cath there. We then used the ultrasound and visualized the left internal jugular vein in the lower neck. Under ultrasound a needle was advanced and appeared to be within the vein but the blood return was, not pulsatile but, more brisk than 1 would expect. A guidewire passed readily but on looking at the position of the guidewire under fluoroscopy it seemed to be within the aorta and positioned left of the spinal column. Judging this to be in the arterial system, I removed the guidewire and held pressure. After a few minutes, we then used ultrasound again and then cannulated the left internal jugular vein. This time or venous, lower pressure, blood returned. A guidewire passed without difficulty. Under fluoroscopy the position of the guidewire was much more appropriate and consistent with location in the venous system and superior vena cava. From there, I placed the Port-A-Cath tubing over a proposed pathway to the exit site of the guidewire. Two counter incisions were marked on the skin. Local was infiltrated under each of the counter incisions as well as at the exit point of the guidewire. We then made small incisions at all 3 sites. The Port -A-Cath tubing was tunneled from the subcutaneous of the pocket up through the 2 counter incisions and then out through the exit site of the guidewire. Port-A-Cath was placed in the pocket and the Port-A-Cath tubing placed in its anticipated position tunneled up to the guidewire. I then used fluoroscopy to estimate the length of Port-A-Cath that would be needed. Port-A-Cath was cut to the appropriate length. I again used fluoroscopy to watch the dilator and sheath passed over the guidewire and into the superior vena cava. The sheath and guidewire were removed. The Port-A-Cath was passed through the sheath and into the superior vena cava. Before removal of the sheath, we checked the Port-A-Cath position and appeared appropriate. The sheath was then removed. Port-A-Cath position was again checked and all looked good. There were no kinks in the Port-A-Cath tubing and the into the Port-A-Cath appeared to be at the distal SVC, right atrial junction. Port-A-Cath was checked and aspirated blood as well as flushing easily with heparin. I then sutured the Port-A-Cath to the pectoralis major muscle with interrupted 3-0 silk suture. I again cannulated the Port-A-Cath. It aspirated blood and flushed easily with heparin. We closed the Port-A-Cath pocket with layered closure of running 2-0 Vicryl suture. The skin of the Port-A-Cath pocket was closed with running 4-0 Monocryl skin suture. The 3 counter incisions were closed with subcuticular 4-0 Vicryl skin suture. Each wound was then dressed with Exofin surgical adhesive. The patient was then awakened and taken to outpatient surgery recovery in good condition. Sponge and needle counts were correct x2. Estimated Blood Loss -10 Drains No Packing No Pathology None sent Complications None Condition Stable Disposition PACU [facility] Billing Surgery - Charge Forward: Surgery Billing (Placement left internal jugular vortex Port-A-Cath under fluoroscopy and using ultrasound guidance.)
[2024-12-18 14:47] VITALS: BP 96/76; PULSE 105; RESP 18; O2SAT 100
[2024-12-18 15:10] VITALS: BP 109/69; PULSE 84; RESP 18; O2SAT 100
[2024-12-18 15:40] VITALS: BP 109/51; PULSE 69; RESP 16
== END 2024-12-18 15:50 | disposition home or self-care (01) ==
PROVIDERS: Visit Provider Surgery
PROC: (CPT 36561; principal; 2024-12-18 13:00)
DX: C18.7 Malignant neoplasm of sigmoid colon (principal); F17.210 Nicotine dependence, cigarettes, uncomplicated; F12.90 Cannabis use, unspecified, uncomplicated
CPT/HCPCS: 36561; 36415; 77001; 85025; 85610; 85730; C1788; J0690; J1644; J1885; J2250; J2704; J3010; J7030; J7120